=== PATIENT | female | born 2000 | race Caucasian/White ===

== ENCOUNTER 2023-05-31 23:51 | Emergency (ER) | payer MEDICAID, SELFPAY ==
[2023-05-31 23:53] VITALS: BP 134/79; PULSE 66; RESP 16; TEMP 37.1; O2SAT 97; BMI 20.8
--- NOTE | 2023-06-01 00:13 | ED.SKABFB1 ---
HPI - Skin/Abscess/Foreign Bdy General Chief complaint: Skin/Abscess/Foreign Body Stated complaint: rash/hives Time Seen by Provider: 06/01/23 00:08 Source: patient Mode of arrival: walk-in Limitations: no limitations History of Present Illness HPI narrative: patient complains of pruritic rash. States started in her groin about 2 weeks ago. has now spread to her axilla and hands. No dyspnea or throat tightness. No joint swelling or fever. Tried hydrocortisone but it did not help MD complaint: Reports rash Related Data Home Medications Medication Instructions Recorded Confirmed No Known Home Medications 05/31/23 05/31/23 Allergies Allergy/AdvReac Type Severity Reaction Status Date / Time red dye Allergy Unknown Verified 05/31/23 23:57 Review of Systems ROS Status of ROS 10 or more systems reviewed and unremarkable except as noted in history and below PFSH [facility] Social History Smoking status: Current every day smoker Exam Constitutional Vital Signs, click to edit/add: Last Vital Signs Temp 98.8 F 05/31/23 23:53 Pulse 66 05/31/23 23:53 Resp 16 05/31/23 23:53 BP 134/79 05/31/23 23:53 Pulse Ox 97 05/31/23 23:53 O2 Del Method Room Air 05/31/23 23:53 Common normals: no apparent distress, average body habitus, oriented x3, no limitations, healthy appearing, alert and well nourished [facility] Common normals: normocephalic and head/scalp atraumatic Eye Common normals: EOMs intact bilaterally and conjunctivae normal Respiratory Common normals: normal respiratory effort, no retractions, no use of accessory muscles and clear to auscultation bilaterally Cardio Common normals: regular rhythm, S1 normal heart sound and S2 normal heart sound Extremity Common normals: normal to inspection and full ROM Other: faint erythematous rash bilat axilla and few lesion scattered on her hands Neuro Common normals: oriented x3, CN's II-XII intact bilaterally, moves all extremities, no focal motor deficits and no sensory deficits noted Course Vital Signs Vital signs: Vital Signs Temperature 98.8 F 05/31/23 23:53 Pulse Rate 66 05/31/23 23:53 Respiratory Rate 16 05/31/23 23:53 Blood Pressure 134/79 12/18/23 23:53 Pulse Oximetry 97 05/31/23 23:53 Oxygen Delivery Method Room Air 05/31/23 23:53 Temperature 98.8 F 05/31/23 23:53 Pulse Rate 66 05/31/23 23:53 Respiratory Rate 16 05/31/23 23:53 Blood Pressure 134/79 05/31/23 23:53 Pulse Oximetry 97 05/31/23 23:53 Oxygen Delivery Method Room Air 05/31/23 23:53 MDM - Skin/Abscess/Foreign Bdy MDM Narrative Medical decision making narrative: patient presents with a pruritic rash. ? etiology. Plan treatment with course of steroids and she is to follow up with her family doctor Discharge Plan Discharge Chief Complaint: Skin/Abscess/Foreign Body Clinical Impression: Urticaria Prescriptions / Home Meds: No Action No Known Home Medications Instructions: Acute Rash (ED) Stand Alone Forms: Portal Instructions Referrals: Physician,Non-Staff, MD [Primary Care Provider] - 1 week
[2023-06-01] MEDS: PREDNISONE 20 MG TABLET 40 MG PO (00:21)
== END 2023-06-01 00:30 | disposition home or self-care (01) ==
PROVIDERS: Emergency Provider Internal Medicine
DX: L50.9 Urticaria, unspecified (principal); F17.200 Nicotine dependence, unspecified, uncomplicated
CPT/HCPCS: 99283

== ENCOUNTER 2023-12-11 23:31 | Emergency (ER) | payer MEDICAID, SELFPAY ==
--- OUTSIDE RECORDS SUMMARY | 2023-12-11 23:41 | XMS_ITS | CCD ---
Author Organization [facility] Care Team Providers Care Shotblaster Name Role Phone PROVIDER, UNKNOWN Attending Unavailable PROVIDER, UNKNOWN Referring Unavailable Balbina, PCP Primary Care Unavailable Naima Perez Primary Care Provider UnavailMICHAEL Staley Referring Unavailab NAIMA Asif Primary Care Unavailable MICHAEL SMALLS Referring Unavailab NAIMA Asif Primary Care Unavailable NAIMA PEREZ Primary Care Physician Maribel Randall Unavailable Amy Tang Unavailable CAITIE MARSHALL Primary Care Physician CAITIE MARSHALL Primary Care Physician MD Lucia Thorne Attending Provider [phone] Lucia Thorne Admitting Unavailable Lucia Thorne Attending Unavailable NON STAFF Primary Care Unavailable Amy Tang Attending Unavailable Amy Tang Admitting Unavailable Naima Perez Primary Care Unavailable Amy Tang Attending Unavailable Naima Perez Primary Care Unavailable Amy Tang Admitting Unavailable Maribel Randall Admitting Unavailable Maribel Randall Attending Unavailable [facility] ([place], [place]), Services Primary Care Unavaila ble Amy Tang Attending Unavailable Naima Perez Primary Care Unavailable Amy Tang Admitting Unavailable Amy Tang Attending Unavailable Naima Perez Primary Care Unavailable Amy Tang Admitting Unavailable PAY, DR MARCUS Admitting Unavailable PAY, DR MARCUS Attending Unavailable PAY, DR MARCUS Consulting Unavailable JOSE G, DR NAIMA Joseph Primary Care Unavailable MEDHAT PEREZ Consulting Unavailable JOSE G, DR NAIMA Joseph Primary Care Unavailable AMY TANG JR Admitting Unavailable ZIEBPARVEEN, DR SUGAR Zhang Consulting Unavailable AMY TANG JR Attending Unavailable AMY TANG JR Consulting Unavailable JOSE G, DR NAIMA Joseph Consulting Unavailable JOSE G, DR NAIMA Joseph Primary Care Unavailable JOSE G, DR NAIMA Joseph Admitting Unavailable JOSE G, DR NAIMA Joseph Attending Unavailable MACARENA, DR TYLER Admitting Unavailable JOSE G, DR NAIMA Joseph Primary Care Unavailable MACARENA, DR TYLER Attending Unavailable MACARENA, DR TYLER Consulting Unavailable AMBREEN DAN Attending Unavailable Allergies Allergy Classification Reported Allergen(s) Allergy Type Date of Onset Reaction(s) Facility (10 sources) Contrast media; 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: [red dye] Drug allergy 01-23-2017 [facility] Other Medications Current Medications Medication Drug Class(es) Dates Sig (Normalized) Sig (Original) dicyclomine hydrochloride 20 mg oral tablet (2 sources) Anticholinergic Start: 08-01-2021 take 1 tablet by mouth every twelve hours Dicyclomine HCl 20 MG 1 tablet Orally TWICE A DAY for 30 day(s) Jul, Active Drospirenone-Ethiny l Estradiol (1 source) Progestin, Estrogen Start: 07-28-2021 take 1 tablet by mouth once daily Drospirenone-Eth inyl Estradiol Active 1 TAB PO Daily July 28, 2021 1:00am {21 (Ethinyl Estradiol 0.035 MG / norgestimate 0.25 MG Oral Tablet) / 7 (Inert Ingredients 1 MG Oral Tablet) } Pack [Sprintec 28 Day] (2 sources) Progestin, Estrogen Start: 01-24-2020 take 1 tablet by mouth once daily Sprintec oral tablet Ib, Oral, Daily, control/menstrua l regulation Start Date: 01/24/20 Status: Ordered fluconazole 150 mg oral tablet (1 source) Azole Antifungal Start: 04-08-2021 Diflucan 150 MG 1 tablet Orally take 1 tablet now for 1 days Mar, Active ibuprofen 600 mg oral tablet (3 sources) Nonsteroidal Anti-inflammatory Drug Start: 01-24-2020 take 1 tablet by mouth every six hours as needed for pain ibuprofen 600 mg Tab 600 mg = 1 tab(s), Oral, q6hr, PRN as needed for pain Start Date: 01/24/20 Status: Ordered loratadine 10 mg oral tablet (2 sources) Start: 08-10-2018 take 1 tablet by mouth once daily loratadine (CLARITIN) 10 MG tablet Take 1 tablet by mouth daily 30 tablet 0 08/10/2018 Active pramoxine hydrochloride 10 mg/ml rectal foam (1 source) Start: 02-13-2022 End: 02-20-2022 take 15 g rectal route twice daily ProctoFoam 1% Foam apply, Rectal, BID for 7 day(s), 15 gm, Refill(s) 0, [facility]/pharmacy #[id number], 162, cm, 02/13/22 6:24:00 EDT, Height/Length Dosing, 61, kg, 02/13/22 6:24:00 EDT, Weight Dosing Start Date: 02/13/22 Stop Date: 02/20/22 Status: Ordered Sprintec 28 (5 sources) Sprintec 28 Active Sprintec oral tablet (1 source) Start: 01-24-2020 take 1 tablet by mouth once daily Sprintec oral tablet Ib, Oral, Daily, control/menstrua l regulation Start Date: 01/24/20 Status: Ordered Completed/Discontinued Medications Medication Drug Class(es) Dates Sig (Normalized) Sig (Original) Cetirizine (1 source) Histamine-1 Receptor Antagonist Cetirizine HCl Not-Taking hydrocortisone 25 mg/ml topical cream (4 sources) Corticosteroid Start: 06-25-2021 Anusol-HC 2.5 % 1 application Externally Twice a day for 14 days Jun, Not-Taking Hyoscyamine (1 source) Hyoscyamine Sulfate Not-Taking Senna Leaves (1 source) Senna Not-Taking Problems Active Problems Problem Classification Problem Date Documented Da te Episodic/Chronic Anal and rectal conditions (5 sources) Rectal pain; 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: [Other specified diseases of anus and rectum] Episodic E Codes: Natural/environment (1 source) Bitten by cat, initial encounter; 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: [BITTEN BY CAT INITIAL ENCOUNTER] Onset: 06-18-2022 Episodic Genitourinary symptoms and ill-defined conditions (4 sources) Dysuria; 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: [Dysuria] Onset: 03-02-2022 Episodic Hemorrhoids (1 source) Hemorrhoids; 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: [Unspecified hemorrhoids] Onset: 02-13-2022 Episodic Joint disorders and dislocations; trauma-related (3 sources) Tear of lateral meniscus of knee 01-24-2020 Episodic Open wounds of extremities (4 sources) Open bite of right hand, initial encounter; 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: [OPEN BITE RIGHT HAND INITIAL ENC] Onset: 06-17-2022 Episodic Other aftercare (1 source) USP (current) use of hormonal contraceptives; 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: [RESIDENTIAL HORMONAL CONTRACEPTIVES] Onset: 06-18-2022 Episodic Other circulatory disease (2 sources) Other specified symptoms and signs involving the circulatory and respiratory systems; 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: [Oth symptoms and signs involving the circ and resp systems] Onset: 08-10-2018 Episodic Other female genital disorders (2 sources) Other specified noninflammatory disorders of vagina; 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: [Vaginal discharge N89.8] Onset: 04-08-2021 Resolved: 04-08-2021 Episodic Other gastrointestinal disorders (3 sources) Irritable bowel syndrome 01-24-2020 Chronic Other gastrointestinal disorders (5 sources) Irritable bowel syndrome characterized by constipation; 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: [Irritable bowel syndrome with constipation] Chronic Other gastrointestinal disorders (1 source) Diarrhea; 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: [Diarrhea, unspecified] 07-29-2021 Episodic Other lower respiratory disease (1 source) Disorder of respiratory system; 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: [Other specified respiratory disorders] Onset: 10-19-2021 Episodic Other upper respiratory infections (2 sources) Acute upper respiratory infection, unspecified; 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: [Acute upper respiratory infection, unspecified] Onset: 08-10-2018 Episodic Skin and subcutaneous tissue infections (1 source) Cellulitis of right upper limb; 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: [CELLULITIS OF RIGHT UPPER LIMB] Onset: 06-18-2022 Episodic Substance-related disorders (1 source) Nicotine dependence, cigarettes, uncomplicated; 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: [NICOTINE DEPEND CIGARETTES UNCOMP] Onset: 06-18-2022 Chronic Superficial injury; contusion (2 sources) Abrasion of left hand, initial encounter; 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: [Abrasion of right hand, initial encounter] Onset: 06-18-2022 Episodic Unclassified (1 source) Injury of right knee; 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: [Injury of right knee, initial encounter] Unclassified (1 source) K92.1 - Melena; 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: [K92.1 - Melena] Onset: 08-05-2021 Unclassified (1 source) R19.7 - Diarrhea, unspecified; 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: [R19.7 - Diarrhea, unspecified] Onset: 07-29-2021 Unclassified (1 source) Z01.812 - Encounter for preprocedural laboratory examination; 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: [Z01.812 - Encounter for preprocedural laboratory examination] Onset: 07-16-2021 Unclassified (1 source) N89.8 - Other specified noninflammatory disorders of vagina; 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: [N89.8 - Other specified noninflammatory disorders of vagina] Onset: 04-08-2021 Urinary tract infections (1 source) Urinary tract infection, site not specified; 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: [UTI SITE NOT SPECIFIED] Onset: 07-13-2022 Episodic Viral infection (1 source) Viral disease; 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: [Other viral agents as the cause of diseases classified elsewhere] Onset: 10-19-2021 Episodic Past or Other Problems Problem Classification Problem Date Documented Da te Episodic/Chronic Abdominal pain (9 sources) Unspecified abdominal pain; 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: [Abdominal pain] Onset: 06-25-2021 Resolved: 09-17-2021 Episodic Gastrointestinal hemorrhage (10 sources) Rectal hemorrhage; 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: [Hemorrhage of anus and rectum] Onset: 06-25-2021 Resolved: 09-17-2021 Episodic Malaise and fatigue (4 sources) Other fatigue; 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: [OTHER FATIGUE] Onset: 01-15-2022 Episodic Other eye disorders (1 source) Other disorders of sclera; 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: [OTHER DISORDERS OF SCLERA] Onset: 01-18-2022 Episodic Other gastrointestinal disorders (2 sources) Diarrhea, unspecified Onset: 06-25-2021 Resolved: 09-17-2021 Episodic Residual codes; unclassified (2 sources) High risk bisexual behavior; 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: [High risk bisexual behavior Z72.53] Onset: 04-08-2021 Resolved: 04-08-2021 Episodic Results Test Name Value Interpretation Reference Range Facility CULTURE URINEon 07-12-2022 CULTURE URINE Isolate 1 Streptococcus agalactiae 25,000 cfu/ml of ORGANISM 1 Streptococcus agalactiae ANTIBIOTIC M.I.C RX STATUS Benzylpenicillin <=0.06 S F Ampicillin <=0.25 S F Cefotaxime <=0.12 S F Ceftriaxone <=0.12 S F Levofloxacin 0.5 S F Inducible Clindamycin Resistance Neg NEG F Erythromycin >=8 R F Clindamycin >=1 R F Linezolid <=2 S F Vancomycin 0.5 S F Tetracycline >=16 R F Normal [facility] Comment on above: Performed By: #### U RCX #### [facility] [address] [place] [address] Dr. Venancio Soriano ER URINE PROFILEon 3 Bilirubin Ql (U) Negative Normal NEGATIVE [facility] Comment on above: Performed By: #### U MICRO, PREGU, ERUR #### [facility] [address] [address] [address] Venancio Soriano Clarity (U) CLEAR Normal CLEAR [facility] Comment on above: Performed By: #### U MICRO, PREGU, ERUR #### [facility] [address] [place] [address] Dr. Venancio Soriano Color (U) LT. YELLOW Normal YELLOW [facility] Comment on above: Performed By: #### U MICRO, PREGU, ERUR #### [facility] [address] [place] [address] Dr. Venancio FREEMAN A micrscopic examination will be performed if indicated. Normal [facility] Comment on above: Performed By: #### U MICRO, PREGU, ERUR #### [facility] [address] [place] [address] Dr. Venancio Soriano Glucose Ql (U) Negative Normal NEGATIVE [facility] Comment on above: Performed By: #### U MICRO, PREGU, ERUR #### [facility] [address] [address] [address] Venancio Soriano Hemoglobin Ql (U) TRACE-INTACT Abnormal NEGATIVE [facility] Comment on above: Performed By: #### U MICRO, PREGU, ERUR #### [facility] [address] [address] [address] Venancio Soriano Ketones Ql (U) Negative Normal NEGATIVE [facility] Comment on above: Performed By: #### U MICRO, PREGU, ERUR #### [facility] [address] [place] [address] Dr. Venancio Soriano LEUKOCYTES SMALL Abnormal NEGATIVE [facility] Comment on above: Performed By: #### U MICRO, PREGU, ERUR #### [facility] [address] [address] [address] Venancio Soriano Nitrite Ql (U) Negative Normal NEGATIVE [facility] Comment on above: Performed By: #### U MICRO, PREGU, ERUR #### [facility] [address] [address] [address] Venancio Soriano pH (U) 6.0 [pH] Normal 5-9 [facility] Comment on above: Performed By: #### U MICRO, PREGU, ERUR #### [facility] [address] [address] [address] Venancio Soriano SPEC GRAVITY 1.025 Normal 1.005-<=1.02 5 [facility] Comment on above: Performed By: #### U MICRO, PREGU, ERUR #### [facility] [address] [place] [address] Dr. Venancio Soriano UA PROTEIN Negative Normal NEGATIVE/ TRACE [facility] Comment on above: Performed By: #### U MICRO, PREGU, ERUR #### [facility] [address] [address] [address] Venancio Soriano UR MICRO IND INDICATED Normal [facility] Comment on above: Performed By: #### U MICRO, PREGU, ERUR #### [facility] [address] [address] [address] Venancio Soriano Urobilinogen Qn (U) 0.2 {Erick'U}/dL Normal 0.2 - 1. 0 [facility] Comment on above: Performed By: #### U MICRO, PREGU, ERUR #### [facility] [address] [place] [address] Dr. Venancio Soriano URon 07-10-2022 , QUAL Negative Normal NEGATIVE The [facility] Comment on above: Performed By: #### U MICRO, PREGU, ERUR #### [facility] [address] [place] [address] Dr. Venancio Soriano URINE MICROSCOPIC ONLYon BACTERIA TRACE Abnormal NONE SEEN [facility] Comment on above: Performed By: #### U MICRO, PREGU, ERUR #### [facility] [address] [address] [address] Venancio Soriano Bacteria identified Cx Nom (U) INDICATED Normal [facility] Comment on above: Performed By: #### U MICRO, PREGU, ERUR #### [facility] [address] [address] [address] Venancio Soriano CAST NONE SEEN Normal NONE SEEN [facility] Comment on above: Performed By: #### U MICRO, PREGU, ERUR #### [facility] [address] [address] [address] Venancio Soriano Crystals LM Nom (Urine sed) NONE SEEN Normal NONE SEEN [facility] Comment on above: Performed By: #### U MICRO, PREGU, ERUR #### [facility] [address] [place] [address] Dr. Venancio Soriano Epithelial cells LM Ql (Urine sed) RARE Normal NONE SEEN /RARE [facility] Comment on above: Performed By: #### U MICRO, PREGU, ERUR #### [facility] [address] [place] [address] Dr. Venancio Soriano MUCOUS NONE SEEN Normal NONE SEEN [facility] Comment on above: Performed By: #### U MICRO, PREGU, ERUR #### [facility] [address] [place] [address] Dr. Venancio Soriano RBC 0-2 Normal 0-2 [facility] Comment on above: Performed By: #### U MICRO, PREGU, ERUR #### [facility] [address] [place] [address] Dr. Venancio Soriano WBC 5-10 Abnormal NONE SEEN [facility] Comment on above: Performed By: #### U MICRO, PREGU, ERUR #### [facility] [address] [place] [address] Dr. Venancio Soriano Urine Cultureon 03-02-2022 Bacteria identified Cx Nom (U) Reason for Exam Dysuria Urine No Growth 2 Days PERFORMED BY: [address] [place] [id number] PATHOLOGIST [employer] ENG[employer] EDDIE CORTÉS M.D. Normal [facility] Comment on above: Performed By: #### V AGINITIS+ #### [facility] , #### CUU #### [facility] [address] [place] [address] Vaginitis Plus (VG+)on 03-02 Atopobium Vaginae Moderate - 1 Normal . [facility] Comment on above: Order Comment: Reaso n for Exam Vaginal odor Performed By: #### V AGINITIS+ #### [facility] , #### CUU #### [place] [address] [place] BVAB2 Low - 0 Normal . [facility] Comment on above: Order Comment: Reaso n for Exam Vaginal odor Performed By: #### V AGINITIS+ #### [facility] , #### CUU #### [address] Makayla Albicans, YUNIOR Negative Normal Negative [facility] Comment on above: Order Comment: Reaso n for Exam Vaginal odor Result Comment: This test was developed and its performance characteristics determined by [facility]. It has not been cleared or approved by the Food and Drug Administration. Performed By: #### V AGINITIS+ #### [facility] , #### CUU #### [facility] [address] [place] [address] Makayla Glabrata, YUNIOR Negative Normal Negative [facility] Comment on above: Order Comment: Reaso n for Exam Vaginal odor Result Comment: This test was developed and its performance characteristics determined by [facility]. It has not been cleared or approved by the Food and Drug Administration. PERFORMED BY: [place] [address] PATHOLOGIST [employer]WORK ENGINEER EDDIE CORTÉS M.D. Performed By: #### V AGINITIS+ #### [facility] , #### CUU #### [address] [place] [address] [place] Chlamydia Trachomotis, YUNIOR Negative Normal Negative [facility] Comment on above: Order Comment: Reaso n for Exam Vaginal odor Performed By: #### V AGINITIS+ #### [facility] , #### CUU #### [address] Megasphaera Low - 0 Normal . [facility] Comment on above: Order Comment: Reaso n for Exam Vaginal odor Result Comment: Calc ulate total score by adding the 3 individual bacterial vaginosis (BV) marker scores together. Total score is interpreted as follows: Total score 0-1: Indicates the absence of BV. Total score 2: Indeterminate for BV. Additional clinical data should be evaluated to establish a diagnosis. Total score 3-6: Indicates the presence of BV. This test was developed and its performance characteristics determined by [facility]. It has not been cleared or approved by the Food and Drug Administration. Performed By: #### V AGINITIS+ #### [facility] , #### CUU #### [address] Neisseria Gonorrhoeae, YUNIOR Negative Normal Negative [facility] Comment on above: Order Comment: Reaso n for Exam Vaginal odor Result Comment: Perf ormed at: = - [facility] [address] [id number] Urologist Md: Kim Anderson MD, Phone: [phone] Performed By: #### V AGINITIS+ #### [facility] , #### CUU #### [facility] [address] [place] [address] Tric Vag YUNIOR Negative Normal Negative [facility] Comment on above: Order Comment: Reaso n for Exam Vaginal odor Performed By: #### V AGINITIS+ #### [facility] , #### CUU #### [address] Coding Summary.on 02-17-2022 Coding Summary. [id number] Gh0bWw+PGhlYWQ+PE1FV VUhB57biMXtdJ9JG8oNX R5NSPEUWREGPT9HXP6cz CD8SZpuR6TjndAh WwoceWBhEZ98AMc2XVA7 xHthYVxsbG8yvLBqC2u2 XpOoLT51sU29YJawRTDf VjL3IqDrhikvwMPg A2yeTcRseQKtHmg+PHRh YmxlIHdpZHRoPScxMDAl KcIddEfbFM3zKx0oBKQo LWNvbGxhcHNlOiBj o2luPIQbJMhwKC3mjUnu R5CawTU7FPHcy6x8Rh25 dHI+SMWcHYE8zPnqQWuq g162BiPfh7opMXQ0 oPFwDVyfWKB8B09bc9S0 DPOuAOFuNYL6sQE1yU6n cKnudsptE1CkdFDoPmA4 TPY6fLWprF7jnArf bwmwcB6qUao+R01GCY6H MTCCAF9BSlz6J9GuGdto dHI+UK25ABMmLD98rFYr oRQxq2vzfBq6SsHg ZTWeNAB9eWhgVFrgq2Rz LEZsE01uzEAuy7N8ECNw zSvlxODaKzJtkON3bA3n HTmqulgzu1irzaod Sxfof3nfwo80wH33P70c RBmkXELrHWT6WJXbRHGq jRxxkn2grJ9tKs3+IDxj w1gri0nkyHn4KkQr AOLoegXreCesQMS7e2Bo Tp63P7EliOypw1ZnXli7 ku06rBWwg4V7lJG1QZbk LRHinG3mYUaoQzE5 AEBiMlImhR55iEYcIIhh Cw4xzBmxpRssZR1zHUTf uvroICNbeM4tSWOcaZOx xIulKB8qDRHzniqa a417BtZxYOU7YRQbaCUm S7JmtR5uAuNtHOJkCCDk S9SmzUMiKAwpN676LYdk UwT2TPVozoUfD8Fv NJHnjTinSwM2v7J9Rk4L n5MptxbrWOF4BWnuXDH0 SiX8LtRpSuH0N4WeRlj0 VZLjmWntXS1jB2Ws YZYuyxbeevjnaUN4WEEz FROdkE10nUXpETwuOq4s n4H3f862LXGhIEFnyV58 Ld1yjVmeNFFejWDX iW4rjtuxr8prqrmbYbQv VUFyXNn1FQk1TIJvwUdh JjIlKID3VwL3TSB0lURv fK0grLguswftsJ6a Oyc+A18xuD8nHAA3NRE2 wxacFLOpnmUqSS85DQ55 R5KbPvaqfCViyMR+PGRp lxAkpRywDE0bVoWu l5xbi5PyYJawZ1TcPOSc GDpmSdk3QZZuUID9sSR8 eH2cDKCoQExbf2J7sNM9 E2QvrzXttu3zj1tw JBQgGAouP30kaKHly6X2 LAEdbFK5TPCgoBktBjMd kW23Bgu+PMJjkWapp7Hk Mswww6ama0hjtJg0 IjMwJSIgdmFsaWduPSJ0 t0AbQz10Q28aWNznLYOr LNTiVLEqQVGlbLmcbb6x bJ2sTf1+PGNvbCB3 eJP4xT5kBIYoTgG2EHsp O784VhNcyVIwXnxna2jz v5ihnIg7FwPrGUHbefBw tFgdJDR8w8ToQx44 V44lZOfvGEIwDMObAMDy CZRbpGqeig9wwE0mJr2+ SK9ag5yttv83lJ44vBI+ XNZzUZR4qCnwNCcp WTYieG5sPKdlCoO8MZIm UnKrtG44cMSkQEceNx3o zGbdgLxnNU4vPFCsrxsi u605NvNvl8fdXQPr tQViPBivOVX7J61oj7J8 SOGzWHZuJSI7fBH2qT0d bGlnbjogbGVmdDsgdmVy rCsfMKmcXPrsA033 IHRvcDsnPlBhdGllbnQg XhHbDPa0P4RkWhk6HKZv lTmwFX5zpEXeSUkjBe2a gEcqmTlbOU8jTULd rnwxr315DrSqq3jaHZAf hLVtJKibDXJ5Z38ee7O2 AEKuHKNoRXX0yCC2bM0l bGlnbjogbGVmdDsg vwQcjWzjCYyfLTgpR627 IHRvcDsnPkJpcnRoIERh nIE8EU81BP09oDIpm6R5 oPI8Q4AcKCJirsml euexeOF7WOBuDOEzxK46 Qb8aaUpwKm0bJZPoQSK3 GXKoeFYxD3RpuK4nVdRy KTAzWBOfY0HiuGGf VKaqA124VPxbJiP2UHYx fgTdX9JuNFXdpBzzZlP0 c1O5Zp9UZ8R9SF10ID74 lUDig1Z5kQU3J2Cz IMRklqezesqhvNX1YTIb WMHkwH11Nk0rtDkaLz7f XSFbYVT5VACzdVCgN6Py fD3gCsKlRUKuUWHz Z5PwtJYrIImfC444INni FjH4XAJculGeU7JpOQZp xLixJnR5a6J5Rg6CTXt5 ZH29VR78hDShl8T1 qBF6O4CmNEFlgrcohxeq zGG1WPHbVQMapE92Vb7u kMxaKy3jMBTgOXN3WXAb xFSkG9TcxT7vAsVy BZZyCDOlD3VonHIzTJjl A609CXpdXdI7MJAutoQv C8PmRGXbjAleYbP3d0W3 Mc2XRZOdJV43SDR4 rOI4AY47RF80J9UhFefn dGFibGU+PHRhYmxlIHdp ZHRoPScxMDAlJyBzdHls QO1hRw1mDVBxHZWl oNrwqLXyIaJdn4frMDWd UAuxYB8bhQkbW2DzqOZ7 NGFkd1n4Ya43O10hB3Uu dXA+KINvcCB5mKP8 aL8sPbNsDvY2IGlbX062 PlTqmGZoZpsov9aso4ea kRr4JtN8DFXoqpOzxMvo TLA5o0BpXh55P22e IHdpZHRoPSIxNSUiIHZh vVioqx4anA9vHg6+PGNv fIB1iAI3mH3iTbWuRoS3 PSiuO428QfPjrMXl Pqsjx1pid0kznLj8DcOj SSTjdtFluVkkSXZ7o6Fa Yy63F2JeaEpon2LuAhz5 wa27wSYrx1G6cDP8 P2AgNRZgkprbmXQgdBsg AW2lJQOgacohEVAzlM7z PJQuT2e8BuFuAnM6BIkw D7MayvZ1OIKjiLXu QRzqBHY8R58pn5E3BVAh TFXrRZE9oXA8jM3tmNpr bjogbGVmdDsgdmVydGlj UErnYGqwE917GFTi hHzxEUSyrT9oUTDgwJUs rHasUO1kMGCwfnmlIsCV QAxKFKalE3PLTBqMKvaE JO04HZ79wTOna2X6 bHM9G5HgDJKshaxurcpp xMF0HAYpDOYepM21mXHm PHolUf5sp5A8l893PYZp WHShqU71Io8gaTae FZLbqRBDhZ3kbgwua5tt ubexEeCnIDMpWFj9MDf4 IYLwcOofPsWnLJN9EnS1 MYS2lOQrcO6gcTgw fybreM5iIqy+MDIvMTkv MjAwMzwvdGQ+PHRkIHN0 kDoxPWdoSRVyfC2rXZKk V8y1YkCmNbU2QXqi B7KcTEKyosidBz02iM8e MvAmBkK8GLbzR9BcxhE1 GGOvlLZtJDwcBNG9W13f m6Y0KCUnJHMhJLS7 nPY8iM3csPrgpoloxGQw dDsgdmVydGljYWwtYWxp E209EZJzfBhgDgE0PHhy AMCkRX15TA05vIHi k0T4fXJ0E3JzFPFzdywg htnkjMB1TALiGAIplG38 cZJnNMytKb9be2K5e416 PTAbVVSdpG09Qt3y vGmaVRSluWVEyI4ogzar n7aiokzxHjNjXKEbZQn3 JMi3DCFnsXpyMvJiOFT0 LdL6ZPZ6qSCiiL6b kZknffxxcN9xZfu+RmVt WCpdSR75ZK64lPYqy3O3 uPY3G2XoORJwziaxtbwg kBJ2KVXxUOHcmM39 bTGhWVlgOk5zj2M3o393 WLKmBJTvvW85Gz8bxGef NEEtdXASzR9bnijwj8or cjogIzAwMDAwMDt0 ROr2EHBupLeuOkYgRNW7 UiU6ZWI2kUBosQ5egGhs flijtR0wPkv+ZP7jgtij hrI8LH65CW66U5Qa PjwvdGFibGU+PHRhYmxl IHdpZHRoPScxMDAlJyBz tGupGA0zLa2rYOXfYRRg fKndrAApVgUiz7yf QGMgGOlbAB5zwHqgD4On pNS6QXHxw1c5Yr35A50k K3XysSY+ZUYbwLY3bLL6 fO1iXyVvKzM3OUbb W692GvOhdBSkRjuxl6zh d4gpdWt6CjNsVNPbooSo fEjjTTR5g8TfVs41Z74t IHdpZHRoPSIyMCUi CLIkfYktel7myD8dSg9+ MNCrpYB9cGF5dZ8iIcFw ChW7TMtrW213YhXuwSAg KubyC44bO3HwmKD+ MKSdAxk0VDMubTelZW0f bDBsUKarUg9xUIL3DqTm HvNyHQwgD0TcYRXbyerq erzunUC7LEMmSLUe sC04Qm8grAmxQj8tRVRd GNB5BWIefNQlA0BeyJ2a CkRbEWLlCHCuG5MseTVc SRhyK726TOupCuT0 KYUmjuQcU2WoYVTasDxd YhL8y1X0Ts0OpXftzRLl VI3aZgKhINp6M1GqTmf3 PXQuyEpiYU7prMAe DLitZs9fcGdbtFykGL2g JLMkqnbsx933XvLdh0yc PEIjbKTpHBneJEY3I06a n9B1EJRmDJUgDQI1 lDW7mH0htXjmygkdnTYk dDsgdmVydGljYWwtYWxp Q320GOFgqOvbMqFQMlc8 Y5ErGyz4EETrbZpi ER9tsLLjAPiwVc1zqUyq sGiyRK8qNXUtbptlm960 ZxChd9gtAVArdRJcBBke EKS2N37zt8D7FNRc FBFbPWF2rPQ8fN2ycWsw bjogbGVmdDsgdmVydGlj WBqhEBzvZ809VWCwdKzc Gk8MCjq0V9XsEdq2 PTBinSdsOV2fyAPtPIkp Np6pxLkcmOhhZI7fYQXm adfmi178PrPwu3fiTYWm rLJiPVfdCVM1F23z h3G0QUFqXIRkEPM5wZV0 mQ1ilJvbppccrNSrdEua awFtwJouFRwtGAhoL815 [id number] [id number] YXBz (more content not included)... Normal [facility] Auto Diffon 02-13-2022 Basophils/100 WBC (Bld) 0.9 % Normal 0.0-2.0 [facility] Comment on above: Order Comment: Order Added by Discern Expert. Performed By: #### 2 079717, 1728352, 78250756, 5681295, [id number] ####[address] [address] Basophils/Leukocytes Auto (Bld) [Pure # fraction] 0.1 E9/L Normal 0.0-0.2 [facility] Comment on above: Order Comment: Order Added by Discern Expert. Performed By: #### 2 498926, 0729564, 61547086, 8424799, 00570557 ####[address] [address] Eosinophils/100 WBC (Bld) 0.6 % Normal 0.0-8.0 [facility] Comment on above: Order Comment: Order Added by Discern Expert. Performed By: #### 2 690279, 1275833, 50529326, 9028997, 47979969 ####[address] [address] Eosinophils/Leukocyte s Auto (Bld) [Pure # fraction] 0.0 E9/L Normal 0.0-0.5 [facility] Comment on above: Order Comment: Order Added by Discern Expert. Performed By: #### 2 339948, 2951395, 09395251, 4074142, 34459674 ####[address] [place] [address] Lymphocytes/100 WBC (Bld) 46.4 % Normal 14.0-50.0 [facility] Comment on above: Order Comment: Order Added by Discern Expert. Performed By: #### 2 722040, 4987195, 97591643, 4320662, 47832628 ####[facility] [address] [place] [address] Lymphocytes/Leukocyte s Auto (Bld) [Pure # fraction] 3.1 E9/L Normal 1.0-4.0 [facility] Comment on above: Order Comment: Order Added by Madeleine Expert. Performed By: #### 2 980550, 5896229, 79805014, 8457388, 73887034 ####[address] [address] Monocytes/100 WBC (Bld) 8.2 % Normal 4.0-14.0 [facility] Comment on above: Order Comment: Order Added by Madeleine Expert. Performed By: #### 2 671431, 6077280, 81100604, 2180547, 09822187 ####[address] [address] Monocytes/Leukocytes Auto (Bld) [Pure # fraction] 0.6 E9/L Normal 0.2-1.0 [facility] Comment on above: Order Comment: Order Added by Madeleine Expert. Performed By: #### 2 940532, 0757715, 97855136, 1937886, 27083744 ####[address] [address] Neutrophils/100 WBC (Bld) 43.9 % Normal 36.0-75.0 [facility] Comment on above: Order Comment: Order Added by Madeleine Expert. Performed By: #### 2 510061, 3865764, 29667878, 4574501, 28518621 ####[address] [place] [address] Neutrophils/Leukocyte s Auto (Bld) [Pure # fraction] 3.0 E9/L Normal 2.0-7.5 [facility] Comment on above: Order Comment: Order Added by Madeleine Expert. Performed By: #### 2 932125, 8575640, 77442795, 8146033, 47106228 ####[address] [address] BB Draw & Holdon 02-13-2022 BB D&H Sample drawn for Blood Ba Normal [facility] Comment on above: Performed By: #### 2 315522, 2704110, 26812020, 2058796, 80000274 ####[address] [place] [address] CBC w/ Auto Diffon Erythrocyte distribution width (RBC) [Ratio] 13.3 % Normal 10.9-14.2 [facility] Comment on above: Performed By: #### 2 265066, 1782509, 65434206, 5852886, 24577427 ####[address] [address] Hematocrit (Bld) [Volume fraction] 34.1 % Normal 34.0-46.0 [facility] Comment on above: Performed By: #### 2 417730, 2308417, 90320779, 8081558, 80250512 ####[address] [address] Hemoglobin (Bld) [Mass/Vol] 11.7 g/dL Low 12.0-16.0 [facility] Comment on above: Performed By: #### 2 072803, 8480225, 66609390, 0738480, 00326669 ####[address] [address] MCH (RBC) [Entitic mass] 29.9 pg Normal 27.0-34.0 [facility] Comment on above: Performed By: #### 2 463104, 4647038, 61528100, 0718028, 62309841 ####[address] [address] MCHC (RBC) [Mass/Vol] 34.4 g/dL Normal 31.4-36.0 [facility] Comment on above: Performed By: #### 2 468259, 2693817, 12866346, 1905143, 03219047 ####[address] [place] [address] MCV (RBC) [Entitic vol] 86.8 fL Normal 80.0-100.0 [facility] Comment on above: Performed By: #### 2 410299, 2238749, 25703314, 1653978, 26565780 ####[address] [address] Platelet mean volume (Bld) [Entitic vol] 7.9 fL Normal 6.4-10.8 [facility] Comment on above: Performed By: #### 2 577675, 9782719, 94640404, 1079565, 89190172 ####[address] [address] Platelets (Bld) [#/Vol] 329.0 E9/L Normal 150.0-500.0 [facility] Comment on above: Performed By: #### 2 726568, 8173065, 84701837, 7261621, 37214795 ####[address] [address] RBC (Bld) [#/Vol] 3.9 E12/L Low 4.3-5.9 [facility] Comment on above: Performed By: #### 2 271266, 5540763, 78079185, 1321311, 33508665 ####[address] [address] WBC corrected for nucl RBC Auto (Bld) [#/Vol] 6.7 E9/L Normal 4.0-11.0 [facility] Comment on above: Performed By: #### 2 501060, 3548057, 51796336, 8823540, 09397658 ####[address] [address] CHEMISTRYOrdered By: SYSTEM SYSTEM on 02-13-2022 Albumin [Mass/Vol] 4.3 g/dL Normal 3.3 - 5.0 gm/dL [facility] [place] Albumin/Globulin [Mass ratio] 1.3 {ratio} Normal 1.1 - 2.2 [facility] Remisol ALP [Catalytic activity/Vol] 55 [iU]/d Normal 21 - 98 Int._Unit/L [facility] Remisol ALT No additional P-5'-P [Catalytic activity/Vol] 12 [iU]/d Normal 6 - 46 Int._Unit/L [facility] Remisol Anion gap [Moles/Vol] 10 mmol/L Normal 6 - 16 mEq/L [facility] Remisol AST [Catalytic activity/Vol] 15 [iU]/d Normal 5 - 43 Int._Unit/L [facility] Remisol Bilirubin [Mass/Vol] 0.4 mg/dL Normal 0.0 - 1 .1 mg/dL [facility] Remisol Calcium [Mass/Vol] 9.2 mg/dL Normal 8.9 - 11. 1 mg/dL [facility] Remisol Chloride [Moles/Vol] 107 mmol/L Normal 101 - 1 11 mmol/L [facility] Remisol CO2 [Moles/Vol] 23 mmol/L Normal 21 - 31 mmol/L [facility] Remisol Creatinine [Mass/Vol] 0.4 mg/dL Low 0.5 - 1.3 mg/dL [facility] Remisol GFR/1.73 sq M.predicted among blacks MDRD (S/P/Bld) [Vol rate/Area] mL/min/1.73 m2 Normal >=59mL/min/[address] [facility] Chem S GFR/1.73 sq M.predicted among non-blacks MDRD (S/P/Bld) [Vol rate/Area] mL/min/1.73 m2 Normal >=59mL/min/[address] [facility] Chem S Globulin (S) [Mass/Vol] 3.2 g/dL Normal 1.4 - 4.0 gm/dL [facility] Glucose [Mass/Vol] 87 mg/dL Normal 55 - 199 mg/dL [facility] Remisol Potassium [Moles/Vol] 3.8 mmol/L Normal 3.5 - 5.3 mmol/L [facility] Remisol Protein [Mass/Vol] 7.5 g/dL Normal 6.0 - 7.8 gm/dL [facility] Remisol Sodium [Moles/Vol] 136 mmol/L Normal 135 - 145 mmol/L [facility] Remisol Urea nitrogen [Mass/Vol] 14 mg/dL Normal 5 - 21 mg/dL [facility] Remisol Urea nitrogen/Creatinine [Mass ratio] 35 mg/mg High 10 - [address] [facility] Remisol CMPon 02-13-2022 Albumin [Mass/Vol] 4.3 g/dL Normal 3.3-5.0 [facility] Comment on above: Performed By: #### 2 342348, 5741677, 51126569, 4724783, 80004619 ####[facility] [address] [place] [address] Albumin/Globulin (S) [Mass conc ratio] 1.3 Normal 1.1-2.2 [facility] Comment on above: Performed By: #### 2 992606, 9305987, 18239463, 9116515, 25816727 ####[facility] [address] [place] [address] ALP [Catalytic activity/Vol] 55 Int._Unit/L Normal 21-98 [facility] Comment on above: Performed By: #### 2 744667, 9011890, 25137840, 2143958, 17235930 ####[facility] [address] [place] [address] ALT No additional P-5'-P [Catalytic activity/Vol] 12 Int._Unit/L Normal 6-46 [facility] Comment on above: Performed By: #### 2 417962, 5993778, 98711747, 9073859, 36412522 ####[facility] [address] [place] [address] AST [Catalytic activity/Vol] 15 Int._Unit/L Normal 5-43 [facility] Comment on above: Performed By: #### 2 870634, 2074041, 02168661, 4499838, 34646864 ####[facility] [address] [place] [address] Bilirubin [Mass/Vol] 0.4 mg/dL Normal 0.0-1.1 [facility] Comment on above: Performed By: #### 2 710881, 9238760, 86163583, 6849877, 72635210 ####[facility] [address] [place] [address] Creatinine [Mass/Vol] 0.4 mg/dL Low 0.5-1.3 [facility] Comment on above: Performed By: #### 2 241265, 8978199, 31168901, 7686479, 73179074 ####[facility] [address] [place] [address] Globulin (S) [Mass/Vol] 3.2 g/dL Normal 1.4-4.0 [facility] Comment on above: Performed By: #### 2 492357, 2439561, 89192639, 0367078, 18103867 ####[facility] [address] [place] [address] Protein [Mass/Vol] 7.5 g/dL Normal 6.0-7.8 [facility] Comment on above: Performed By: #### 2 986309, 0252091, 85216103, 6987145, 84489998 ####[facility] [address] [place] [address] Urea nitrogen [Mass/Vol] 14 mg/dL Normal 5-21 [facility] Comment on above: Performed By: #### 2 765418, 7584217, 18211369, 9058217, 26646050 ####[facility] [address] [place] [address] Urea nitrogen/Creatinine [Mass ratio] 35 No Units High 10-20 [facility] Comment on above: Performed By: #### 2 732773, 7228386, 70567428, 3942728, 29860690 ####[facility] [address] [place] [address] Anion gap [Moles/Vol] 10 mmol/L Normal 6-16 [facility] Comment on above: Performed By: #### 2 467688, 0003500, 26908935, 5572017, 69052672 ####[facility] [address] [place] [address] Calcium [Mass/Vol] 9.2 mg/dL Normal 8.9-11.1 [facility] Comment on above: Performed By: #### 2 428326, 2059046, 45497688, 9097459, 59802496 ####[facility] [address] [place] [address] Chloride [Moles/Vol] 107 mmol/L Normal 101-111 [facility] Comment on above: Performed By: #### 2 277396, 6824893, 01666461, 0688621, 71507196 ####[facility] [address] [place] [address] CO2 [Moles/Vol] 23 mmol/L Normal 21-31 [facility] Comment on above: Performed By: #### 2 750873, 1341035, 34442966, 6276225, 50234393 ####[facility] [address] [place] [address] Glucose [Mass/Vol] 87 mg/dL Normal 55-199 [facility] Comment on above: Result Comment: If t his glucose result represents a fasting glucose, interpretation should refer to the following reference range: 55-99 mg/dL Performed By: #### 2 754620, 0970211, 09235145, 6351866, 03677648 ####[facility] [address] [place] [address] Potassium [Moles/Vol] 3.8 mmol/L Normal 3.5-5.3 [facility] Comment on above: Performed By: #### 2 800626, 7648620, 11225493, 5081035, 47770671 ####[facility] [address] [place] [address] Sodium [Moles/Vol] 136 mmol/L Normal 135-145 [facility] Comment on above: Performed By: #### 2 427878, 9737890, 03194572, 8069644, 20144165 ####[facility] [address] [place] [address] Consent for Treatmenton Consent for Treatment [id number] 20 [id number] #1.00CD:127 Normal [facility] Discharge Instructionson Discharge Instructions [id number]# 1.00CD:127 Normal [facility] ED Clinical Summaryon 2021 ED Clinical Summary [address] [address] ED Clinical Summary Person Information Name: MARIBEL VELEZ/[place] Age: 21 Years : 2000 Sex: Female Language: Sudanese PCP: CAITIE MARSHALL CNP Marital Status: Single Visit Id: Visit Reason: Rectal bleed; Abdominal pain; RECTAL BLEEDING, ABD PAIN Speciality: Acuity: 3 Enc Type: Emergency Med Service: Emergency Arrival: 02/13/2022 06:16:54 Discharge: 02/13/2022 07:28:32 LOS: 000 01:12 Checkin: 02/13/2022 06:16:54 Checkout: 02/13/2022 07:28:32 Dispo Type: Home (Routine DC) EVENTS: Event Name Event Status Request Date/Time Start Date/Time Complete Date/Time Arrive Complete 02/13/2022 06:16:54 02/13/2022 06:16:54 02/13/2022 06:16:54 Document Home Meds Request 02/13/2022 06:16:54 Triage Complete 02/13/2022 06:16:54 02/13/2022 06:24:34 02/13/2022 06:24:34 Dr Exam Complete 02/13/2022 06:19:17 02/13/2022 06:19:17 02/13/2022 06:19:17 Registration Complete 02/13/2022 06:19:17 02/13/2022 06:24:46 02/13/2022 06:26:19 Bed Assign Complete 02/13/2022 06:24:46 02/13/2022 06:24:46 02/13/2022 06:24:46 RN Exam Complete 02/13/2022 06:24:46 02/13/2022 06:43:50 02/13/2022 06:43:50 Reg Complete Request 02/13/2022 06:26:19 Pending Labs Complete 02/13/2022 06:43:24 02/13/2022 07:19:21 Lab Complete 02/13/2022 06:43:24 02/13/2022 07:19:21 Pending Labs Complete 02/13/2022 06:54:10 02/13/2022 06:54:10 02/13/2022 07:19:23 Lab Complete 02/13/2022 06:54:10 02/13/2022 06:54:10 02/13/2022 07:19:23 Dr Exam Complete 02/13/2022 07:00:54 02/13/2022 07:00:54 02/13/2022 07:00:54 Registration Request 02/13/2022 07:00:54 Pending Labs Complete 02/13/2022 07:08:25 02/13/2022 07:08:25 02/13/2022 07:08:31 Lab Complete 02/13/2022 07:08:25 02/13/2022 07:08:25 02/13/2022 07:08:31 Pending Labs Complete 02/13/2022 07:12:09 02/13/2022 07:12:09 02/13/2022 07:27:55 Blood Collect Start 02/13/2022 07:12:09 02/13/2022 07:12:09 Discharge Complete 02/13/2022 07:21:56 02/13/2022 07:28:36 02/13/2022 07:28:36 Pending Labs Complete 02/13/2022 07:25:17 02/13/2022 07:25:17 02/13/2022 07:25:17 Transfer Complete 02/13/2022 07:28:36 02/13/2022 07:28:36 02/13/2022 07:28:36 ADDRESS: [facility] [address] [facility] [id number] PHYS DOC NOTES: Addendum by Kevin Santoro DO on February 13, 2022 07:22:06 EDT MEDICAL INFORMATION: Prescriptions Given: New Medications [id number], [address] [place], [place] [id number], [phone] pramoxine topical (ProctoFoam 1% Foam) apply By rectum 2 times a day for 7 Days. Refills: 0. Medications to Continue with No Changes Other Medications ethinyl estradiol-norgestima te (Sprintec oral tablet) Ib By Mouth every day. ibuprofen (ibuprofen 600 mg Tab) 1 Tablets By Mouth every 6 hours as needed as needed for pain. PATIENT EDUCATION INFORMATION: Instructions: Rectal Bleeding, Nwbl-av-Hvtc; Hemorrhoids, Xaqj-ol-Qdfd Follow up: With: Address: When: [facility], [address] [address] Business (1) In 3 days 02/16/2022 With: Address: When: CAITIE MARSHALL In 3 days DIAGNOSIS: Acute hemorrhoid Normal [facility] ED Note-Physicianon 02-14-20 ED Note-Physician Basic Information Time Seen: Ana Braxton DO 02/13/2022 06:19 Chief Complaint Blood coming out of my butt. since 0200 while at work. Denies clots. Bilateral flank pain shortly after bleeding started. Has seen PCP for same complaint. History of Present Illness Patient is a 21-year-old female with past medical history of IBS presenting to the ED for evaluation of rectal bleeding. Patient states that started today while she was at work around 2 AM, has been noticing it on the toilet paper when she wipes in addition to the toilet bowl. Patient had seen a GI doctor in the past however he and she never established with another GI doctor. Denies any fevers, chills, dizziness or lightheadedness. Does note some bilateral flank pain that started after the rectal bleeding started. Review of Systems General: Denied fever, chills, weight loss HEENT: Denied Congestion, rhinorrhea, sore throat Cardiac: Denied Chest pain, palpitations, dizziness/lightheade dness Respiratory: Denied Dyspnea, cough Abdominal: Denied abdominal pain, nausea, vomiting, diarrhea, constipation, +rectal bleeding : Denied dysuria, hematuria Extremities: Denied leg swelling, leg pain, calf tenderness Neuro: Denied Focal neurologic deficits, vision changes, difficulty with speech Integumentary: Denied rashes or lesions Physical Exam Vitals & Measurements T: 36.8 ?C(Oral) HR: 75(Peripheral) RR: 20 BP: 119/74 SpO2: 98% HT: 162.0 cm HT: 162 cm WT: 61.0 kg WT: 61 kg BMI: 23.24 General: Well developed, non toxic appearing, no acute distress HEENT: Head atraumatic, Mucosa moist, hearing grossly normal Neck: No JVD, tracheal deviation Cardiac: Regular rate, rhythm, no murmurs, or gallops, 2+ radial pulses Respiratory: Lungs clear to auscultation B/L, normal respiratory effort Abdomen: Soft non tender, no rebound or guarding, no peritoneal signs Rectal: No external hemorrhoids noted, small internal hemorrhoid noted at the 6 o'clock position Extremities: No edema noted in the LE B/L, no tenderness to palpation Neurologic: Alert and oriented, speech clear Skin: No rashes or lesions Psych: Appropriate mood and behavior Medical Decision Making Patient is a 89-year-old female presenting to the ED for evaluation of rectal bleeding. Patient is nontoxic-appearing on arrival, no acute distress. Patient does have a small internal hemorrhoid noted on examination. Basic laboratory evaluation is obtained. Patient signed out to Dr. Santoro pending labs. Assessment/Plan Acute hemorrhoid (K64.9: Unspecified hemorrhoids) Orders: CBC w/ Auto Diff Comprehensive Metabolic Panel Disposition Plan Discharge Prescription List Prescriptions No active prescription medications Follow-up No qualifying data available Problem List/Past Medical History Ongoing No qualifying data Historical No qualifying data Procedure/Surgical History Arthroscopy of knee (01/24/2020). Medications Inpatient No active inpatient medications Home ibuprofen 600 mg Tab, 600 mg= 1 tab(s), Oral, q6hr, PRN Sprintec oral tablet, Ib, Oral, Daily Allergies Red Dye (Hives) Social History Alcohol - Denies Alcohol Use, 01/24/2020 Substance Abuse - Denies Substance Abuse, 01/24/2020 Tobacco - Denies Tobacco Use, 01/24/2020 Family History Acute myocardial infarction: Grandparent. Bipolar: Mother. Depression: Mother. Depression: Mother. Lab Results No qualifying data available. Diagnostic Results No qualifying data available. Patient was signed out to by the prior physician I did review full work-up here in the emergency department. Laboratory studies are unremarkable. The prior physician did document presence of a hemorrhoid therefore patient will be treated with Proctofoam also given referral to GI in the outpatient setting for follow-up return to ER symptoms should change or worsen. Diagnosis: Rectal bleeding Normal [facility] Comment on above: Result Comment: Bernie shannon Signed By: Kevin Santoro DO\.sarah\Date and Time Signed: 02/13/22 07:23 EDT ED Patient Education Noteon 02-13-2022 ED Patient Education Note Gastroenterology Rectal Bleeding Rectal bleeding is when blood comes out of the opening of the butt (anus). People with this kind of bleeding may notice bright red blood in their underwear or in the toilet after they poop (have a bowel movement). They may also have dark red or black poop (stool). Rectal bleeding is often a sign that something is wrong. It needs to be checked by a doctor. Follow these instructions at home: Watch for any changes in your condition. Take these actions to help with bleeding and discomfort: ? Eat a diet that is high in fiber. This will keep your poop soft so it is easier for you to poop without pushing too hard. Ask your doctor to tell you what foods and drinks are high in fiber. ? Drink enough fluid to keep your pee (urine) clear or pale yellow. This also helps keep your poop soft. ? Try taking a warm bath. This may help with pain. ? Keep all follow-up visits as told by your doctor. This is important. Get help right away if: ? You have new bleeding. ? You have more bleeding than before. ? You have black or dark red poop. ? You throw up (vomit) blood or something that looks like coffee grounds. ? You have pain or tenderness in your belly (abdomen). ? You have a fever. ? You feel weak. ? You feel sick to your stomach (nauseous). ? You pass out (faint). ? You have very bad pain in your butt. ? You cannot poop. This information is not intended to replace advice given to you by your health care provider. Make sure you discuss any questions you have with your health care provider. Document Released: 02/10/2012 Document Revised: 05/13/2018 Document Reviewed: 07/26/2016 Right90 Patient Education ? 2020 [facility]. Hemorrhoids Hemorrhoids are swollen veins that may develop: ? In the butt (rectum). These are called internal hemorrhoids. ? Around the opening of the butt (anus). These are called external hemorrhoids. Hemorrhoids can cause pain, itching, or bleeding. Most of the time, they do not cause serious problems. They usually get better with diet changes, lifestyle changes, and other home treatments. What are the causes? This condition may be caused by: ? Having trouble pooping (constipation). ? Pushing hard (straining) to poop. ? Watery poop (diarrhea). ? . ? Being very overweight (obese). ? Sitting for long periods of time. ? Heavy lifting or other activity that causes you to strain. ? Anal sex. ? Riding a bike for a long period of time. What are the signs or symptoms? Symptoms of this condition include: ? Pain. ? Itching or soreness in the butt. ? Bleeding from the butt. ? Leaking poop. ? Swelling in the area. ? One or more lumps around the opening of your butt. How is this diagnosed? A doctor can often diagnose this condition by looking at the affected area. The doctor may also: ? Do an exam that involves feeling the area with a gloved hand (digital rectal exam). ? Examine the area inside your butt using a small tube (anoscope). ? Order blood tests. This may be done if you have lost a lot of blood. ? Have you get a test that involves looking inside the colon using a flexible tube with a camera on the end (sigmoidoscopy or colonoscopy). How is this treated? This condition can usually be treated at home. Your doctor may tell you to change what you eat, make lifestyle changes, or try home treatments. If these do not help, procedures can be done to remove the hemorrhoids or make them smaller. These may involve: ? Placing rubber bands at the base of the hemorrhoids to cut off their blood supply. ? Injecting medicine into the hemorrhoids to shrink them. ? Shining a type of light energy onto the hemorrhoids to cause them to fall off. ? Doing surgery to remove the hemorrhoids or cut off their blood supply. Follow these instructions at home: Eating and drinking ? Eat foods that have a lot of fiber in them. These include whole grains, beans, nuts, fruits, and vegetables. ? Ask your doctor about taking products that have added fiber (fibersupplements). ? Reduce the amount of fat in your diet. You can do this by: ? Eating low-fat dairy products. ? Eating less red meat. ? Avoiding processed foods. ? Drink enough fluid to keep your pee (urine) pale yellow. Managing pain and swelling ? Take a warm-water bath (sitz bath) for 20 minutes to ease pain. Do this 3?4 times a day. You may do this in a bathtub or using a portable sitz bath that fits over the toilet. ? If told, put ice on the painful area. It may be helpful to use ice between your warm baths. ? Put ice in a plastic bag. ? Place a towel between your skin and the bag. ? Leave the ice on for 20 minutes, 2?3 times a day. General instructions ? Take lias-pyw-igwuche and prescription medicines only (more content not included)... Normal [facility] ED Patient Summaryon 022 ED Patient Summary [id number] Patient Discharge Instructions Person Information Name: MARIBEL VELEZ Age: 21 Years Arrival Date: 02/13/2022 06:16:54 Discharge Diagnosis: Acute hemorrhoid Primary Care Physician: CAITIE MARSHALL CNP Provider Information Primary Provider: Ana Braxton DO [facility] [employer] Performer:None The exam and treatment you received in the Emergency Department were for an urgent problem and are not intended as complete care. It is important that you follow up with a doctor, nurse practitioner, or physician?s event marketing assistant for ongoing care. If your symptoms become worse or you do not improve as expected and you are unable to reach your usual health care provider, you should return to the Emergency Department. We are available 24 hours a day. MARIBEL VELEZ has been given the following list of patient education materials, prescriptions and follow-up instructions: Follow-up Instructions: With: Address: When: [facility], [address] [place] [address] Business (1) In 3 days 02/16/2022 With: Address: When: CAITIE MARSHALL In 3 days In the event that this physician does not participate in your insurance network, please consult with your insurance company to find a nearby participating provider. Patient Education Materials: Rectal Bleeding, Ldih-tq-Yfjl; Hemorrhoids, Xacq-ot-Ngvj A MESSAGE TO ALL PATIENTS REGARDING OPIOIDS PRESCRIPTION OPIOIDS: WHAT YOU NEED TO KNOW Prescription opioids can be used to help relieve cqgstegs-pp-lktxes pain and are often prescribed following a surgery or injury, or for certain health conditions. These medications can be an important part of the treatment but also come with serious risks. It is important to work with your healthcare provider to make sure you are getting the safest, most effective care. WHAT ARE THE RISKS AND SIDE EFFECTS OF OPIOID USE? Prescription opioids carry serious risks of addiction and overdose, especially with prolonged use. An opioid overdose, often marked by slowed breathing, can cause sudden . The use of prescription opioids can have a number of side effects as well, even when taken as directed: ? Tolerance?meaning you might need to take more of the medication for the same pain relief ? Physical dependence?meaning you have symptoms of withdrawal when a medication is stopped ? Increased sensitivity to pain ? Constipation ? Nausea, vomiting, and dry mouth ? Sleepiness and dizziness ? Confusion ? Depression ? Low levels of testosterone that can result in lower sex drive, energy, and strength ? Itching and sweating RISKS ARE GREATER WITH: ? History of drug misuse, substance use disorder, or overdose ? Mental health conditions (such as depression or anxiety) ? Sleep apnea ? Older age (65 years and older) ? Avoid alcohol while taking prescription opioids. Also, unless specifically advised by your health care provider, medications to avoid include: ? Benzodiazepines (such as Xanax or Valium) ? Muscle relaxants (such as Soma or Flexeril) ? Hypnotics (such as Ambien or Lunesta) ? Other prescription opioids KNOW YOUR OPTIONS Talk to your health care provider about ways to manage your pain that don?t involve prescription opioids. Some of these options may actually work better and have fewer risks and side effects. Options may include: ? Pain relievers such as acetaminophen, ibuprofen, and naproxen ? Some medication that are also used for depression or seizures ? Physical therapy and exercise ? Cognitive behavioral therapy, a psychological, goal-directed approach, in which patients learn how to modify physical, behavioral, and emotional triggers of pain and stress. IF YOU ARE PRESCRIBED OPIOIDS FOR PAIN: ? Never take opioids in greater amounts or more often than prescribed. ? Follow up with your primary health care provider. o Work together to create a plan on how to manage your pain. o Talk about ways to help manage your pain that don?t involve prescription opioids. o Talk about any and all concerns and side effects. ? Help prevent misuse and abuse o Never sell or share prescription opioids. o Never use another person?s prescription opioids. ? Store prescription opioids in a secure place and out of reach of others (this may include visitors, children, friends, and family). ? Safely dispose of unused prescription opioids: Find your community drug take-back program or your pharmacy mail-back program, or flush them down the toilet, following guidance from the Food and Drug Administration (www.fda.gov/Drugs/R esourcesForYou). ? Visit www.cdc.gov/drugover dose to learn about the risks of opioids abuse and overdose. ? If you believe you may be struggling with addiction, tell your health care professi (more content not included)... Normal [facility] HEMATOLOGYOrdered By: SYSTEM SYSTEM on 02-13-2022 Basophils/100 WBC (Bld) 0.9 % Normal 0.0 - 2.0 % [facility] [facility] Basophils/Leukocytes Auto (Bld) [Pure # fraction] 0.1 E9/L Normal 0.0 - 0.2 E9/L [facility] Eosinophils/100 WBC (Bld) 0.6 % Normal 0.0 - 8.0 % [facility] Eosinophils/Leukocyte s Auto (Bld) [Pure # fraction] 0.0 E9/L Normal 0.0 - 0.5 E9/L [facility] Lymphocytes/100 WBC (Bld) 46.4 % Normal 14.0 - 50.0 % [facility] Lymphocytes/Leukocyte s Auto (Bld) [Pure # fraction] 3.1 E9/L Normal 1.0 - 4.0 E9/L [facility] Monocytes/100 WBC (Bld) 8.2 % Normal 4.0 - 14.0 % [facility] Monocytes/Leukocytes Auto (Bld) [Pure # fraction] 0.6 E9/L Normal 0.2 - 1.0 E9/L [facility] Neutrophils/100 WBC (Bld) 43.9 % Normal 36.0 - 75.0 % [facility] Neutrophils/Leukocyte s Auto (Bld) [Pure # fraction] 3.0 E9/L Normal 2.0 - 7.5 E9/L [facility] HEMATOLOGYOrdered By: Edie Martini on 02-13-2022 Erythrocyte distribution width (RBC) [Ratio] 13.3 % Normal 10.9 - 14.2 % [facility] Hematocrit (Bld) [Volume fraction] 34.1 % Normal 34.0 - 46.0 % [facility] Hemoglobin (Bld) [Mass/Vol] 11.7 g/dL Low 12.0 - 16.0 gm/dL [facility] MCH (RBC) [Entitic mass] 29.9 pg Normal 27.0 - 34.0 pg [facility] MCHC (RBC) [Mass/Vol] 34.4 g/dL Normal 31.4 - 36.0 gm/dL [facility] MCV (RBC) [Entitic vol] 86.8 fL Normal 80.0 - 100.0 fL [facility] Platelet mean volume (Bld) [Entitic vol] 7.9 fL Normal 6.4 - 10.8 fL [facility] Platelets (Bld) [#/Vol] 329.0 E9/L Normal 150.0 - 500.0 E9/L [facility] RBC (Bld) [#/Vol] 3.9 E12/L Low 4.3 - 5.9 E12/L [facility] WBC corrected for nucl RBC Auto (Bld) [#/Vol] 6.7 E9/L Normal 4.0 - 11.0 E9/L [facility] eGFRon 02-13-2022 GFR/1.73 sq M.predicted among blacks MDRD (S/P/Bld) [Vol rate/Area] mL/min/{1.73_m2} Normal >=59 [facility] Comment on above: Order Comment: Order added by Discern Expert. Result Comment: eGFR is race adjusted. AA=. Performed By: #### 2 [id number] ####[facility] [id number] [place] [address] GFR/1.73 sq M.predicted among non-blacks MDRD (S/P/Bld) [Vol rate/Area] mL/min/{1.73_m2} Normal >=59 [facility] Comment on above: Order Comment: Order added by Discern Expert. Result Comment: Veterinary Toxicologist linwood kidney disease could be indicated at eGFR's of less than 60 mL/min/1.73m2. Kidney failure is indicated at less than 15 mL/min/1.73m2. Performed By: #### 2 [id number] ####[facility] [id number] [place] [address] Coding Summary.on 02-06-2022 Coding Summary. CD:[id number] Gh0bWw+PGhlYWQ+PE1FV ETrI04alJTukH3SM4bMF Y9UWFVJTVGQYS7PGU7hi ML3REexC5LumdBg NdteeCRcCU51TOv2KGI4 pXmkTNbagP1drPEqY1a2 EmZgQZ76cX52BYtcEMUx JhD5JiKusguquZVp C3coDgPgoWTcCrs+PHRh YmxlIHdpZHRoPScxMDAl SiDfjGxjXJ3nPy5sYNMk LWNvbGxhcHNlOiBj b0gtWMHxNDwqHS9raYpe U6MesNK9IGSbv9u1Dz47 dHI+PMZwELK0gAfrXUsq g906IcRxm7inJFC0 pYYjRVbdNQL6W69dc9K3 CVYoNPBrAVW8nHL9hU3d lWwchboeX0MhxVHrEkI5 DDN9pEViyG3vkAqj mpowyN7eMwb+W29STX4D BUDAPX3TSdk6D9FpWmzn dHI+XM42RMKpNP37yLRx cOAhz2knrMa0QcNo HYKtXOH3mEmwMGzrz0St BMDbR47khDBzw9T8WFUo qExqbDXiVzXbcMA3kW8h DZoekppbu4irstyt Rixkm7mgyn15kT82D90q ZCepKTUwPCD2YWIzSEQq lNqbtl4biC9zPt9+IDxj p6ruf6gclPr8AzOf MMUtihFcxGdfXEE7m1Km Vf47X0HzxSlgz6UwDof5 sz82qIYuk2D8cCK2LWsk TOLvxH4fGBxfVaH0 VMFbYwAcaI30qUDrEOrh Cd8cjXifuGduOM4yRRGa whngVZXfgO0sOYLuhVVj mEetEA3nSYUxakww b013MaXcCQD4ELXldIOz Z8WqeI2eEnLnDPMpWRMs D0VjvDGsNZagO288ONlj QzG0VIVgpvStX4Ug ZLZncAtkSlR8d8S0Qt2I r8QxkvufYXZ2IIwaZXP1 BsN2XbZwLgY8G5NbMxy1 FNIdyPsfJP9jD2Ck XDTxzupovvoofFP4DBTc YBRebW78vCOzMVciQi7y r0B8l736PBCzOJYbdU23 Ox6bmMpxTFFgnWYA pK4bctemf5ljhgaoMtQo PSFhKPa9KVp4OOUjwNrj TnOeNTJ3IxR6DNN5eELy zO7yuOuaeophkT7e Oyc+K73cyB7nDVD4DTL3 vtklQWLhtdCuST00LR29 P4CyLbhgpLUzmGP+PGRp qjObxTyjPT7dYmUg b2juv5YlOVziZ5TgOIRg SPoiPpl8VWAwDUA8iIB9 eP4gQLHxEHxlr9N4mHK3 O5AwmjUpgt4bf5oz JBCuWOgiY72lvUPiv8R8 VZOmaWP0GNOtuEfuZqBr mN62Kyl+QNAnnQzlj3Ut Grhgm7sdr1hdaPc2 IjMwJSIgdmFsaWduPSJ0 x5IpPd98R66qRWeaLIWt HTJzPSXcLQPosWkbor2y lB1kQa0+PGNvbCB3 lVF8dM4qWVXbCjK7JInx V975IfFxwHWaElfsa1hg z4gicMu8DiXkVWWbaoNu kEwuVMQ6k9TkAw62 W64nILdjFNEpYKVdHKAi AWKzyIygvg3ofZ3uJn7+ VB5cu1dulp20jF44tZN+ ZQQvVJK7tSduDQze WVZevN8fMPjsXoX4GYJc GjBecV57iSNfVVebOn7d aWfccSfeMV5eEEXxltlm z097LrCuv1ioRGQe sENtJDsmGOS0F23zo4C7 HMRvJZGsPRK3tDT4pS8e bGlnbjogbGVmdDsgdmVy jAosAOrkTAesG009 IHRvcDsnPlBhdGllbnQg LhBsTPr6G4GpBvl7YVZg jZduDA0ghVAuTUtaEu1c oRcnhXaiMX5yUFLe xdeye259GhDcj7jzHBIp sYPqWDhsUGT6J67gf8C2 GOOrLHDsWIU8dCX3lF4k bGlnbjogbGVmdDsg slPdaYstZWkhWEiqV402 IHRvcDsnPkJpcnRoIERh mXO4RQ95LY29tSKst4U3 vTM7Z5FxLDHhuxih oicnnEE9YDLmIFKcsG19 Yt6emCqaSd0bBHToFWC1 ORNznJRaQ1EtlA1vDwXo ABQvCFZdN0TqxSCu ZOihS773DVpvUnI3HRLv lzIeC9DcJCXqdBxoOjL3 r2Q4Tu6SZ2Y4CH74XZ09 cEMow2H5hRE6N0Cl DUOhvprcjvpelGF4DRFs JJZloK39Ix2guXszIk0f JTAmDHP8MSIyxPAxW1Vg gH9rDoLfQDZfEWNe C5NtpKJtNWudK873UFbr BcP6BYUhkcPoS4WcBRTg xUvjPcU5j7U1My7MWVn9 QQ41LF08lVKmj9C2 hWU7Y1DuOCSpmwowropv wOQ1QAIqJTRhdT28Hs6f fXtgLd7bYBOvOXB8RRKj xISaA6OgxI8cMcWh JUVnNXUsI4QzoJXcHIgw Q990YYdhPrS9SGXnqrHr L3YnYZLtoOeyNoK6d9V7 Vo5KRCBpVE08KAS5 rBC8TN72IR80V4XyLwbz dGFibGU+PHRhYmxlIHdp ZHRoPScxMDAlJyBzdHls AF0oCw2pHUUxHRXc eYkktKLpQdTbs0heHPWo KWzxQX6bpQnsN2CdnNJ8 EXDsf5i3Rp86G52oW3Mk dXA+LGJmeGH1mAS7 sH8cUqSxVpH3PFyiT839 ViDjtNVrByrqp0ejs2qw yLl5DyU4MXPmhiGpsRge RWO0f0QvYs53T44r IHdpZHRoPSIxNSUiIHZh cGfvjb3ttP1dYg6+PGNv eIK1iKH4bQ6dYgPlKdJ7 IColB618DmJxzFRm Gnwjs9qio4tllYr4OuVd URXgeoTqyUgiWQG2j0Sg Tg77B6HhqWlet4JnDhr0 tm34zKJsk3T5zZX8 J0SySLDssoumrXIdcChw AS8sGCVayvwzNGDylB9a MCUwX4p0EeFuQuB0WAnm A9GxyxF2GVIodWIw SExuLZV7X80lv1U5DJKp IHMgXNU7oRX0bX0kiQgd bjogbGVmdDsgdmVydGlj BSckVGsgZ385AELv vQcjLXIjgV3hDNTmiZSo xScpKF1sXTMhswzcZjLB HGcGXHjpU6HHTSsWEzaF RH17NT33sCEdh5T6 lEH3G3MyUYBcihtdtihj fLN7OOKdIVYmlZ21jFJv PTfmNq9or3I7t930DEFi HYDehU33Df1blNal BVItfRISgF7hehihl8sm tswlQwSnTWNzVEi7XWd1 RHXdkRlfHiPjDUZ0JcE8 SSZ5gKTzjL1edJui pnducG8fIvs+MDIvMTkv MjAwMzwvdGQ+PHRkIHN0 yVwlXXopPKRcqB3zVXUt A3w4JiEuKpY9EQdv Z2KjDTEfginqHv71vS6h CeBiHbW3SUpqC1WtnjB9 IOJyzXCiWQozMXN1N05c t5C6BNHrGPIlJFI3 qBT6tF6rnSlcdexxiESa dDsgdmVydGljYWwtYWxp I536AMJmvUxnWcA6JAqz TGTxFP03UF38jUQu d2F0jVY8Y9WqSKCkbqku looefYX2DUKuTXAczR58 hTNpEAhhKr3la9N7t956 IWGnTAVsdJ17Og2s qYhxEAJqzWIVtW2vailf e6jyytuiIoQnFTFpTHy8 ITc3AJVocWyoHrVrRTQ3 PpN7AVG9eWDcgK3r hBvkrxjnaE7cRnh+RmVt DOhrOG52ZV71pQWwn8A3 iJK0M3OgQIVqykcexqpy eSZ7VMXfYGCfyL76 nGEsJUajFk5il4Y5f518 LXVdZMPcbG10Wj1wsJdv ASDoyUNAbB8vxkrvb1ff cjogIzAwMDAwMDt0 ZMs9PPKbqKhrDmImWTS4 AlL7LSX1hTMdoF6gxJlt xsmrbS0gDma+B5P6tNH2 aWVudDwvdGQ+PC90 ga83O3UhBknaNks0PVJe JKJ8nGO0rB4bGHLrVRtt r5J5eOA6V5NhphKese1a o7exGWMhHUijD84v xBNsd8O4FDOvzIT6HIWk xTnaNkGmbW09Xey+PGNv nJljj4AwZxdzf4diz7et kPu6JyDnKTGodzEz sVryJVG7r8UcXm72E99w IHdpZHRoPSIzMCUiIHZh bQsvkw3mkS9sXm7+PGNv aBD9mLA2qW6xRsGl DgP5AXypE373HaYdwPEp Tckyc1hvd8dewVz6QeQn KPUbziDzqFdrQQD6z6Nw Mj58J0JukMfkb3Sg Vzo8sg63qRYkw0G2jCU8 Q0EwDVQfvobjcIGilWcv CK6dSQVqmnjfZRRkpD0h FMVpS3q5AiGoEtP7 SAscG5YqnoT8KVThjSEn JGNznEQQoS3zlwojc2ef kacoSgBiIQYzUUs8WSz4 LWFsaWduOiBsZWZ0 EzF9IAL4cISnrX9ydWxh gouhyD0kYih+GNp9p5xb eJOmXR9zeVK9WR18ZK90 aVUvs1G8mDY4K4Cl ICEsqlmapukvcDZ9WBQq KWPupH30Gd2xsCqxIj9x NPJgUHH3SERbbQUoB6Eo pC3lPrVcXFFfZAGa L2TgxBMqSWhvI707QUjn CfU6QUAnewUjK8SbEYEl yYlcMmF0l0Q9Hs7NAR47 TM16PK59dJOwz1Z7 nXR6N5IiPNWgflfilrwz qEK7PEQdBRWuyI19Nm3f yVjzGo4eBFKgBMM1YFHt eNQdJ0NetY2dCdVo SBKeWKVnL4EamNIiNJgj P885HFrhCuX9KEFvutQn C2BxIUWbaQuxIcZ3i1R8 Vh4RGu63EX18PT61 eUEza6D2tME5Q3XaIUKe pwygsxtcbXT6TVZiWHMa jH49Lg2zaYbjAm9aEMFn TZO9WCEtsWReS3Jk jJ8mUtSoZJPmUIWoG6Lc iTWqUJelM220TMnhPdK4 FCNtvrDcO7MjTGQojYnf OiW5h3U8Fk2RKJgk mmy7W9YsNinpyCH+PC90 NJZyRK14nCOtqDGmv8gq mHs3XuIpRYKkXWC2xTvc HZqsd4HbZNEzH93p bGFw (more content not included)... Normal [facility] Consent for Treatmenton 01-13 Consent for Treatment [id number] 20 [id number] #[id number]:127 Normal [facility] Physician Orderon 02-03-2022 Physician Order [id number] #1.00CD:127 Normal [facility] XR Shoulder Complete Righton 02-03-2022 XR Shoulder Complete Right Exam Date/Time: 02/03/2022 09:53 EDT Reason for Exam: M25.511, ACUTE PAIN OF RIGHT SHOULDER Report IMPRESSION: QUESTIONABLE MINIMAL AC JOINT SEPARATION OF THE RIGHT SHOULDER. RECOMMEND CLINICAL CORRELATION. CLINICAL HISTORY: M25.511, ACUTE PAIN OF RIGHT SHOULDER COMPARISON: NONE FINDINGS: AP, internal, external rotation, Y and axillary views of the right shoulder demonstrate no evidence of acute fracture. There is questionable minimal AC joint separation. There is a no abnormal soft tissue calcification. FINAL REPORT Dictated: 02/03/2022 10:42 am Des Reis M.D. Signed (Electronic Signature): 02/03/2022 10:42 am Signed by: Des Reis M.D. Transcribed by: CHRIS Technologist: JULITO Hanson [facility] CBC AUTO DIFFon 01-15-2022 BASO # 0.0 103/ul Normal 0.0-0.1 [facility] Comment on above: Performed By: #### C BC #### [facility] [address] [place] [address] Dr. Venancio Soriano Basophils/100 WBC (Bld) 0.6 % Normal 0.2-2.0 [facility] Comment on above: Performed By: #### C BC #### [facility] [address] [address] [address] Venancio Soriano EO # 0.1 103/ul Normal 0.0-0.7 [facility] Comment on above: Performed By: #### C BC #### [facility] [address] [address] [address] Venancio Soriano Eosinophils/100 WBC (Bld) 1.3 % Normal 0.9-7.0 [facility] Comment on above: Performed By: #### C BC #### [facility] [address] [address] [address] Venancio Soriano Erythrocyte distribution width (RBC) [Ratio] 12.8 % Normal 11.0-15.0 [facility] Comment on above: Performed By: #### C BC #### [facility] [address] [place] [address] Dr. Venancio Soriano Hematocrit (Bld) [Volume fraction] 36.5 % Normal 36.0-48.0 [facility] Comment on above: Performed By: #### C BC #### [facility] [address] [place] [address] Dr. Venancio Soriano Hemoglobin (Bld) [Mass/Vol] 12.2 g/dL Normal 12.0-16.0 [facility] Comment on above: Performed By: #### C BC #### [facility] [address] [place] [address] Dr. Venancio Soriano IG # 0.01 10e3/ul Normal 0.00-0.03 [facility] Comment on above: Performed By: #### C BC #### [facility] [address] [place] [address] Dr. Venancio Soriano IG % 0.2 % Normal 0.0-0.5 [facility] Comment on above: Performed By: #### C BC #### [facility] [address] [place] [address] Dr. Venancio Soriano LYMPH # 2.7 103/ul Normal 1.2-3.8 [facility] Comment on above: Performed By: #### C BC #### [facility] [address] [place] [address] Dr. Venancio Soriano Lymphocytes/100 WBC (Bld) 42.9 % Normal 20.5-60.0 [facility] Comment on above: Performed By: #### C BC #### [facility] [address] [place] [address] Dr. Venancio Soriano MANUAL DIFF REQ NO Normal [facility] Comment on above: Performed By: #### C BC #### [facility] [address] [place] [address] Dr. Venancio Soriano MCH (RBC) [Entitic mass] 29.4 pg Normal 26.7-34.0 [facility] Comment on above: Performed By: #### C BC #### [facility] [address] [place] [address] Dr. Venancio Soriano MCHC (RBC) [Mass/Vol] 33.4 g/dL Normal 29.9-35.2 [facility] Comment on above: Performed By: #### C BC #### [facility] [address] [address] [address] Venancio Soriano MCV (RBC) [Entitic vol] 88.0 fL Normal 81.0-99.0 [facility] Comment on above: Performed By: #### C BC #### [facility] [address] [place] [address] Dr. Venancio Soriano MONO # 0.5 103/ul Normal 0.3-0.8 [facility] Comment on above: Performed By: #### C BC #### [facility] [address] [place] [address] Dr. Venancio Soriano Monocytes/100 WBC (Bld) 7.2 % Normal 1.7-12.0 [facility] Comment on above: Performed By: #### C BC #### [facility] [address] [place] [address] Dr. Venancio Soriano NEUT # 3.0 103/ul Normal 1.4-6.5 [facility] Comment on above: Performed By: #### C BC #### [facility] [address] [place] [address] Dr. Venancio Soriano Neutrophils/100 WBC (Bld) 47.8 % Normal 43.0-75.0 [facility] Comment on above: Performed By: #### C BC #### [facility] [address] [place] [address] Dr. Venancio Soriano Platelet mean volume (Bld) [Entitic vol] 9.5 fL Normal 9.5-13.5 [facility] Comment on above: Performed By: #### C BC #### [facility] [address] [place] [address] Dr. Venancio Soriano PLT 323 103/ul Normal 150-450 [facility] Comment on above: Performed By: #### C BC #### [facility] [address] [place] [address] Dr. Venancio Soriano RBC 4.15 106/ul Critically low 4.20-5.40 [facility] Comment on above: Performed By: #### C BC #### [facility] [address] [place] [address] Dr. Venancio Soriano WBC 6.2 103/ul Normal 4.0-11.0 [facility] Comment on above: Performed By: #### C BC #### [facility] [address] [place] [address] Dr. Venancio Soriano PROF 14(COMP METB)on 022 Albumin [Mass/Vol] 4.0 g/dL Normal 3.4-5.0 [facility] Comment on above: Performed By: #### C MP #### [facility] [address] [place] [address] Dr. Venancio Soriano Albumin/Globulin [Mass ratio] 1.2 {ratio} Normal [facility] Comment on above: Performed By: #### C MP #### [facility] [address] [place] [address] Dr. Venancio Soriano ALP [Catalytic activity/Vol] 67 U/L Normal 46-116 [facility] Comment on above: Performed By: #### C MP #### [facility] [address] [place] [address] Dr. Venancio Soriano ALT [Catalytic activity/Vol] 16 U/L Normal 14-59 [facility] Comment on above: Performed By: #### C MP #### [facility] [address] [place] [address] Dr. Venancio Soriano Anion gap [Moles/Vol] 11.8 mmol/L Normal [facility] Comment on above: Performed By: #### C MP #### [facility] [address] [place] [address] Dr. Venacnio oSriano AST [Catalytic activity/Vol] 9 U/L Critically low 15-37 [facility] Comment on above: Performed By: #### C MP #### [facility] [address] [place] [address] Dr. Venancio Soriano Bilirubin [Mass/Vol] 0.3 mg/dL Normal 0.2-1.0 [facility] Comment on above: Performed By: #### C MP #### [facility] [address] [place] [address] Dr. Venancio Soriano Calcium [Mass/Vol] 8.6 mg/dL Normal 8.5-10.1 [facility] Comment on above: Performed By: #### C MP #### [facility] [address] [place] [address] Dr. Venancio Soriano Chloride [Moles/Vol] 106 mmol/L Normal 98-107 [facility] Comment on above: Performed By: #### C MP #### [facility] [address] [place] [address] Dr. Venancio Soriano CO2 [Moles/Vol] 24.9 mmol/L Normal 21.0-32.0 [facility] Comment on above: Performed By: #### C MP #### [facility] [address] [place] [address] Dr. Venancio Soriano Creatinine [Mass/Vol] 0.58 mg/dL Normal 0.55-1.02 [facility] Comment on above: Performed By: #### C MP #### [facility] [address] [place] [address] Dr. Venancio Soriano EGFR-AF ZIMBABWEAN >60 Normal >=60 [facility] Comment on above: Performed By: #### C MP #### [facility] [address] [place] [address] Dr. Venancio Soriano EGFR-NON AF ZIMBABWEAN >60 Normal >=60 [facility] Comment on above: Performed By: #### C MP #### [facility] [address] [place] [address] Dr. Venancio Soriano Globulin (S) [Mass/Vol] 3.3 g/dL Normal [facility] Comment on above: Performed By: #### C MP #### [facility] [address] [place] [address] Dr. Venancio Soriano Glucose [Mass/Vol] 94 mg/dL Normal 74-106 [facility] Comment on above: Performed By: #### C MP #### [facility] [address] [place] [address] Dr. Venancio Soriano Potassium [Moles/Vol] 3.7 mmol/L Normal 3.5-5.1 [facility] Comment on above: Performed By: #### C MP #### [facility] [address] [address] [address] Venancio Soriano Protein [Mass/Vol] 7.3 g/dL Normal 6.4-8.2 [facility] Comment on above: Performed By: #### C MP #### [facility] [address] [address] [address] Venancio Soriano Sodium [Moles/Vol] 139 mmol/L Normal 136-145 [facility] Comment on above: Performed By: #### C MP #### [facility] [address] [address] [address] Venancio Soriano Urea nitrogen [Mass/Vol] 9.0 mg/dL Normal 6.4-19.3 [facility] Comment on above: Performed By: #### C MP #### [facility] [address] [address] [address] Venancio Soriano Urea nitrogen/Creatinine [Mass ratio] 15.5 mg/mg Normal [facility] Comment on above: Performed By: #### C MP #### [facility] [address] [address] [address] Venancio Soriano Discharge Instructionson Discharge Instructions [id number] [id number] Normal [facility] ED Note-Physicianon 10-23-19 ED Note-Physician Basic Information Time Seen: Cherry Hazel PA-C 10/19/2021 17:10 Chief Complaint pt states starting yesterday she has had a cough and headache. History of Present Illness 21-year-old female presents with a cough and headache since yesterday. She states that she had a fever of 102 ?F yesterday. No Tylenol or Motrin today. She states that she just wants tested for COVID. Denies shortness of breath or chest pain Review of Systems Review of systems negative unless otherwise stated in HPI Physical Exam Vitals & Measurements T: 37.2 ?C(Oral) HR: 89(Peripheral) RR: 17 BP: 138/84 SpO2: 100% HT: 165.0 cm HT: 165 cm WT: 64.0 kg WT: 64 kg BMI: 23.51 GENERAL: ALERT, NO ACUTE DISTRESS, talking in full and complete sentences SKIN: WARM, DRY, INTACT; NO CYANOSIS, NO RASH HEAD: NORMOCEPHALIC, ATRAUMATIC ENT: EYE: PERRL, EOMI, NORMAL CONJUNCTIVA, NO DISCHARGE, NO NYSTAGMUS NOSE: NARES PATENT MOUTH: ORAL MUCOSA MOIST THROAT: NO STRIDOR NECK: SUPPLE, TRACHEA MIDLINE, FROM CARDIOVASCULAR: RRR, NO MURMUR, +S1, +S2 RESPIRATORY: LUNGS CTA, NON-LABORED RESPIRATIONS, BS EQUAL, SYMMETRICAL EXPANSION, NO RHONCHI, WHEEZES, RALES, NO STRIDOR, NO RETRACTIONS EXTREMITIES: FROM X 4 NEUROLOGICAL: A&OX3 PSYCHIATRIC: COOPERATIVE, APPROPRIATE MOOD AND AFFECT Medical Decision Making Patient will be swabbed for COVID and influenza and she chooses to be discharged home and view her results on the online portal as treatment is supportive care. She can follow-up family doctor. Afebrile, not tachycardic, tolerating p.o. and ambulating at baseline and hemodynamically stable to be discharged home. Answered all questions. Patient in agreement with treatment. Assessment/Plan 1. Viral respiratory illness (J98.8: Other specified respiratory disorders) Other viral agents as the cause of diseases classified elsewhere (B97.89: Other viral agents as the cause of diseases classified elsewhere) Orders: Influenza A&B Ag Rapid COVID Antigen [place] Disposition Plan Patient Discharge Condition Stable Discharge Disposition Home Discharge Prescription List Prescriptions No active prescription medications Follow-up With When Contact Information Michelle Mata In 3 days 10/22/2021 EDT Additional Instructions: Patient Education Viral Respiratory Infection, Chpr-Pg-Sffk Attestation This visit was performed by both the physician and an APC. I performed all aspects of the MDM as documented. Problem List/Past Medical History Ongoing No qualifying data Historical No qualifying data Procedure/Surgical History Arthroscopy of knee (01/24/2020). Medications Inpatient No active inpatient medications Home ibuprofen 600 mg Tab, 600 mg= 1 tab(s), Oral, q6hr, PRN Sprintec oral tablet, Ib, Oral, Daily Allergies Red Dye (Hives) Social History Alcohol - Denies Alcohol Use, 01/24/2020 Substance Abuse - Denies Substance Abuse, 01/24/2020 Tobacco - Denies Tobacco Use, 01/24/2020 Family History Acute myocardial infarction: Grandparent. Bipolar: Mother. Depression: Mother. Depression: Mother. Lab Results No qualifying data available. Diagnostic Results No qualifying data available. [facility] Comment on above: Result Comment: Elec tronically Signed By: Cherry Hazel PA-C\.br\Date and Time Signed: 10/19/21 17:19 EDT\.br\Electronically Co-Signed By: Miko Kaur MD\.br\Date and Time Co-Signed: 10/22/21 10:35 EDT Coding Summary.on 10-20-2021 Coding Summary. CD:[id number] Gh0bWw+PGhlYWQ+PE1FV NQwJ67gcYNlfB9ZD4vOV W8IWEAPDMBCAC6ZVX9lm QC8JZekL6NcstBp IwndrMRyTW58DGz9KMR5 dFpqHYparH9ynZLzL5p6 FcBdNP14bP08RKzmAREr GmE7PeKbwalqeHKb M1pgAeMolGGmXdj+PHRh YmxlIHdpZHRoPScxMDAl CpXerNbrPA7sEs3nJFIn LWNvbGxhcHNlOiBj d4zaDJBqAQjcQR2esOwh X7PrkDT3GSFuc1e4Lo00 dHI+COGdVAA4mVueOGcz g665RpNgb2upOJJ4 zICnYDbjYTD8E80ly9U1 UZSiYNDlVYV2iLF6vM2j sMboczcoN0NriSJcLgF0 TCT2wSHyfT4axIqr jrddqU9uPch+O46NHO3O ZVKNSK9KRsg8G2OpInto dHI+RU69FIKjYN80mKBk mUBrd4sqcBx9VdUh QVDxADH6kQniHLupx4Gw OLLxC37puMCcc2E1ELEb iSoxiDAcPhTnjWJ9iV7p ZJvsozfay6muniri Auwhg5yxar91kP33R45y USokWLRmVRN9EOSrJTZs oAyrii7rnF9mTr7+IDxj n6xuj8barTw7XhJq QVZeiuJxvGvjDLM2p1Tx Pe33B4WzcJtli4MoQtw5 eq32oUPhq3I9jQK7KHtr BYOyaK4fHNezLxI2 VRAxRrEsfD14hJHuZCve Yr0qcPjuqHshLD6cBLBu qkbgCBJxzX3pIXGbgOKq lZypWX9oIZUulxyl l369AhYpHIR8LIJmgVKa P4RheD1fHmKiAKDeCCXv N2UedPDzROkkU555KJuc YfY8DCHgjvCoP0Zp KABwuNetUpS4a1Q7Ff9U g8UmaauvAAD0TIzmVMT0 SsU9FaFfRzR4G3GuQdb4 CGHkiDmlTE7eD9Sq FESzqdxyccezvKU0LCFb TACixJ10nJFhWMeyYb5v e6T3f082UMOdIUXfaJ86 Tq2ofOvdLCLrwOYD lO0ijeefh6yivvvsMnIv CKPgMYo0KAf2EEJquTtf UdYcOJO9DxN9OJH5hHZk gV5uvLjbnibzlI5e Oyc+S25cpQ0pKZG1EET3 dtlsETQbcdScYN51YZ37 V3InJsigiKQppML+PGRp mmKvnDpnGW5aZtPd m3npq8OwRTzvQ2VgOPSr OWeeOap7VFCtAJG4lCO6 uQ7fWAIgXFuzx2J1zEG7 W6YtjhJjfm8hu3tp TIEbMCrxZ47kwBIvw8C2 QCGcmMX9MJQdqHucXxZd qG74Duu+ZIXynCpey1Xv Cuzpq5nkk0jhxYt6 IjMwJSIgdmFsaWduPSJ0 s5NaOt23S12gFWigVHSh NJCeNAUbVDZndOfttg6p wT0gAl9+PGNvbCB3 aBR6zS0xGCLxGjU4IOmx E100AeDikPLqGfvvc3op l7verPw0PgElPYYuyvRo pZtsDZR7k7XzWx19 Z83gFUiuFUEuYGArJBIo HAIxkGrlyw9ojB0fEo2+ SA6ul2lkyb46vK88tUG+ PPMgDWZ6bVjaPDhc EICnoG2mUWomJwY0OVDi BkEtrQ38hJAoVUkcEv7d uScvmFnjXH4rDHYzcxsh z115NwAbp8tzARVi qVUpOOzfHMA3D03mc5H4 WAQoULJiJIC7gWC4eI8i bGlnbjogbGVmdDsgdmVy jWrdWBjdTHqeR727 IHRvcDsnPlBhdGllbnQg WpIlQMp0H2EjIoc9MNGb qDyiXN0okROmAWpjMv8c bBevbTbwPC6vCPYb yyhud146ZzQpw2fdSEGx sADkQCdfXQG7W45no1A0 BRRcEWZxNEY1iUL4pH9y bGlnbjogbGVmdDsg bdBdyNxnLCtvSWzxF317 IHRvcDsnPkJpcnRoIERh cDF6XE72KB29rPZay1G3 wBS8K6PuVGBszlfx rvevuKU0DHMhATYyeP47 Ll7pdQgrVu0rCZMyQGI5 ACDrfMEyZ6EzhO4lTnBk NIYqFKHmJ7LwrDYw ZSccZ053KLvxDmH6OXIc wyElQ9QyLMXaaAxdZoW8 i0Q9Dx2IG6O1QV83SO45 yTMfc5N6bRZ8K8Fl OOThbttnaizlhKE5PBDu YJBmjS64Ry7dcLwdEs2k FBZoARG2EMInpFQfH6Ka xK8fOvQcFHBrPVXp K1FhjIPyWMnnS714YByy HtI1VPIiwuWnN3NuDDSe kXrtZoN8u8V6Mv3JWIr9 AO46EI67sZYdc5U6 sSQ2H5RpHKEdniihtmmy iHV6XSRuQZRxlE55Ag8a uHzcGa7zTEDaHTV1KDNl wEWwE6CtbD3sIkBo MFAqSCXqL8TvtGAfIUiy O063GIkpBhD2RCAolvNd P8IjAZPcfNecBoJ2t0D5 Qo3ZDWBsSW67IHJ9 qVT1PF05CK31F9HpVttd dGFibGU+PHRhYmxlIHdp ZHRoPScxMDAlJyBzdHls YA9sIb5jIDEwSALo vIslqOWpDsIwp3brXMZe PZjwIQ7siNgfI5UfzAA8 PFGik2z9Ls51G75lM8Cd dXA+PASkwTY0wRO4 oM0pVaLfAfI1QJriV954 TwMpvDUvEgnto2pin1ao rPz9NaY9GOTgmvUnfHkl NKZ5q7LiQd23S01i IHdpZHRoPSIxNSUiIHZh uXiwqn3pyB0mZb2+PGNv yZO5kHE6tM4pHePoCxG3 RScrE526AxLmsGRh Rfglo7nek2rhgNy6BmMg BCVxmeBpnLwbOUY7i0Wg Zv89R7DsxRgsl4UyVly7 di66wKUsu5Q7xCU5 Q6FtGUGhcgwmqKIteRwf LP4sRAUilbkuERUgbS8k OXTxV8t2KoTmCxR3BThx V1XackZ1GYLhzPEl JYdvYPQ1I66ma7T1ELRa TXXgURU3cUL7yT3bsBzt bjogbGVmdDsgdmVydGlj KHmfSWreA603TDFk oGacWRVqtT8dABFqqEHh sBlcGN0vSLMuxhawLhDY GGbTZAkxC2ZAJZiJRvqM LD79RN33zQEay2B7 lCS9O4RuNMRbwdwzbtfu kUB1KDKxHDGtjR69fBKi FNliAz4bo9J4q548GZAv QGShaD39Ae5deHkr ONTxhDDQiN8kunzwl0ca esxmCoLfVEGiBNb8CLf7 UWHcbGzlYhEnOFR5YyY9 CNB9qRBxnV7ltXah jsjehQ0vXle+MDIvMTkv MjAwMzwvdGQ+PHRkIHN0 tOdxYAodOLWzzU9bDSOm V4p9CjCbUcX5HOpf D6AtFKVzprcsAd18wS8i LfHaUfX6LGsxL4ZwurR3 DIZdeQBdWNcwSAM2H03k c6N5DWEsYSKyIBP0 eRY6nH1fxXgyyltbwLHz dDsgdmVydGljYWwtYWxp R987TWTuqJoaXhV1TQvk LNBaHZ72DT09gFLk o6W2tRY1G8AqCLQkgwmu mrvcyAM8PCKmGBYqxJ40 aYAoHSxbNt3fb1V2f648 XVRrQQCmgP80Ir5w fCouQRRxkWQMqX5liayk m4yabfvaOcOiHVOnSXs9 KMg3IEJqzJfwTzNtBNG1 JcC6MAX5xNUgiB3m aUsbujtjrM3aKct+RmVt GDfqMQ73LL77oSBbz6H3 sPI6D2ObVMFwaxwbfvon tMW1MTLpOXLpxH95 hLAcMJukGs0he3S9h148 WXPaCHLzgX94Um7pnBkf OVPxbRFTgP4zoxqnu8io cjogIzAwMDAwMDt0 HDa4ZSYtmXgnDeTzZPB3 YbM4QVO5iQKuaR1ozQbo okdhpK4tUwp+PL6ersfs pnT0VF43ZQ57B7Vh PjwvdGFibGU+PHRhYmxl IHdpZHRoPScxMDAlJyBz kZrpME9xCn9eBUXjYWGa mWgzdEYsLgLez3hc DRQjYQfvEZ9idClzK9Fc gQF4SNNmk1k8Ph11A02i F4IorHC+OXWboTM5oKC9 zE6vNjPmPaL2TWps V343JmApxCKuEkvwj2oy w8oudKk9PpLxUCHpjxLn aMrgMVF0p2JqFb46I39b IHdpZHRoPSIyMCUi APQmnUgyqw3yoK3hIw7+ RWGaeVA3gTK3xN1zBoJg AbJ0GWxmS901DhLsoMTn UkwgE37dS6SwzNH+ LWDvBvi2KXJraQhxCY7p yECnIVkoBq9lHVF7CaMb CdLaVKzuO9CjWVIzvqsy roufjHU5VEAvKXLe hY99Rw1erLjyPb4tQIXx PPO4DHWwdLZfP8IjsG5u UgIqYOOrJVFyU6FjdXOf WMruY396QWjoGgU7 YTGsnsCjJ8JqPIGjjKkf KaT5d8G8Nd4GxKrruEPb KL4tVqWgAIl6T9DvBul4 PPJtwJngZJ4cgBGr ZCrfWz5fhKpgfJtzHY6p CTJsmnshd597HkNjz6qg PFYibUXwYYvdQGY6W61x b5Y0TOBlTJYzDWR8 aBF4dT8qvXvjbjvfbBBm dDsgdmVydGljYWwtYWxp W872MUFdxHllAxARRjn8 R2SuIsw2DTPvqWgw WI1flBRbUJeeVz1wmLmo mXbhJL0xJIBqlgrky939 CkHhe4ufXSKaxJCjEGsi WBX8M03nx2L3KFZr JLDdGEV8zUH2sO4zaOus bjogbGVmdDsgdmVydGlj RXcrBOhjW999QBNecAmd On6XUfw1G8KxNer0 IHUfqYtlAT0ljWUfYFih Vj1xrByqxAbcUN4jLUWz stfcp401VkKrx0kfERFi jUEuZTwgLDX2P65z q5Y8CANhKSHxMAT3eOS6 mJ4buWegnbiusZLkyXki soMkkTsfYRibAMvqA019 IHRvcDsnPlBheWVy OjwvdGQ+ZC22te30Z4Wz DkuuHrs6KTMoRQY9aND1 jL6uBAUuGDofs7Q1hNH3 I6DkmcDhpr1sy3gr YXBz (more content not included)... Normal [facility] Consent for Treatmenton Consent for Treatment [id number] 20 [id number] Normal [facility] ED Clinical Summaryon 2021 ED Clinical Summary [place] [id number] ED Clinical Summary Person Information Name: MARIBEL VELEZ/[facility] Age: 21 Years : 2000 Sex: Female Language: Sudanese PCP: NAIMA PEREZ MD Marital Status: Single Visit Id: Visit Reason: Cough; Headache; COUGH, HEADACHE Speciality: Acuity: 4 Enc Type: Emergency Med Service: Emergency Arrival: 10/19/2021 17:05:16 Discharge: 10/19/2021 17:15:00 LOS: 000 00:10 Checkin: 10/19/2021 17:05:16 Checkout: 10/19/2021 17:15:00 Dispo Type: Home (Routine DC) EVENTS: Event Name Event Status Request Date/Time Start Date/Time Complete Date/Time Arrive Complete 10/19/2021 17:05:16 10/19/2021 17:05:16 10/19/2021 17:05:16 Document Home Meds Request 10/19/2021 17:05:16 Triage Complete 10/19/2021 17:05:16 10/19/2021 17:10:54 10/19/2021 17:10:54 Bed Assign Complete 10/19/2021 17:08:10 10/19/2021 17:08:10 10/19/2021 17:08:10 Dr Exam Complete 10/19/2021 17:08:10 10/19/2021 17:10:52 10/19/2021 17:10:52 RN Exam Complete 10/19/2021 17:08:10 10/19/2021 17:23:30 10/19/2021 17:23:30 Registration Complete 10/19/2021 17:10:52 10/19/2021 17:26:14 10/19/2021 17:26:14 Pending Labs Inlab 10/19/2021 17:16:20 Swab Inlab 10/19/2021 17:16:20 Pending Labs Inlab 10/19/2021 17:16:54 Lab Inlab 10/19/2021 17:16:54 Discharge Complete 10/19/2021 17:18:35 10/19/2021 17:27:21 10/19/2021 17:27:21 Reg Complete Request 10/19/2021 17:26:14 Reg Bed Request Complete 10/19/2021 17:26:14 10/19/2021 17:26:14 10/19/2021 17:26:14 Transfer Complete 10/19/2021 17:27:21 10/19/2021 17:27:21 10/19/2021 17:27:21 ADDRESS: [address] [id number] [facility] DOC NOTES: MEDICAL INFORMATION: Prescriptions Given: Medications to Continue with No Changes Other Medications ethinyl estradiol-norgestima te (Sprintec oral tablet) Ib By Mouth every day. ibuprofen (ibuprofen 600 mg Tab) 1 Tablets By Mouth every 6 hours as needed as needed for pain. PATIENT EDUCATION INFORMATION: Instructions: Viral Respiratory Infection, Humz-Jd-Ucrc Follow up: With: Address: When: Salena ANTONIOMichelle Gilbert In 3 days 10/22/2021 DIAGNOSIS: 1:Viral respiratory illness; Other viral agents as the cause of diseases classified elsewhere Normal [facility] ED Patient Education Noteon 10-19-2021 ED Patient Education Note Infectious Disease Viral Respiratory Infection A viral respiratory infection is an illness that affects parts of the body that are used for breathing. These include the lungs, nose, and throat. It is caused by a germ called a virus. Some examples of this kind of infection are: ? A cold. ? The flu (influenza). ? A respiratory syncytial virus (RSV) infection. A person who gets this illness may have the following symptoms: ? A stuffy or runny nose. ? Yellow or green fluid in the nose. ? A cough. ? Sneezing. ? Tiredness (fatigue). ? Achy muscles. ? A sore throat. ? Sweating or chills. ? A fever. ? A headache. Follow these instructions at home: Managing pain and congestion ? Take wtsi-yam-gvyywgz and prescription medicines only as told by your doctor. ? If you have a sore throat, gargle with salt water. Do this 3?4 times per day or as needed. To make a salt-water mixture, dissolve ??1 tsp of salt in 1 cup of warm water. Make sure that all the salt dissolves. ? Use nose drops made from salt water. This helps with stuffiness (congestion). It also helps soften the skin around your nose. ? Drink enough fluid to keep your pee (urine) pale yellow. General instructions ? Rest as much as possible. ? Do not drink alcohol. ? Do not use any products that have nicotine or tobacco, such as cigarettes and e-cigarettes. If you need help quitting, ask your doctor. ? Keep all follow-up visits as told by your doctor. This is important. How is this prevented? ? Get a flu shot every year. Ask your doctor when you should get your flu shot. ? Do not let other people get your germs. If you are sick: ? Stay home from work or school. ? Wash your hands with soap and water often. Wash your hands after you cough or sneeze. If soap and water are not available, use hand ring sorter. ? Avoid contact with people who are sick during cold and flu season. This is in fall and winter. Get help if: ? Your symptoms last for 10 days or longer. ? Your symptoms get worse over time. ? You have a fever. ? You have very bad pain in your face or forehead. ? Parts of your jaw or neck become very swollen. Get help right away if: ? You feel pain or pressure in your chest. ? You have shortness of breath. ? You faint or feel like you will faint. ? You keep throwing up (vomiting). ? You feel confused. Summary ? A viral respiratory infection is an illness that affects parts of the body that are used for breathing. ? Examples of this illness include a cold, the flu, and respiratory syncytial virus (RSV) infection. ? The infection can cause a runny nose, cough, sneezing, sore throat, and fever. ? Follow what your doctor tells you about taking medicines, drinking lots of fluid, washing your hands, resting at home, and avoiding people who are sick. This information is not intended to replace advice given to you by your health care provider. Make sure you discuss any questions you have with your health care provider. Document Released: 05/13/2009 Document Revised: 06/08/2019 Document Reviewed: 07/11/2018 [employer] Patient Education ? 2020 [employer] Normal [facility] ED Patient Summaryon 022 ED Patient Summary [place] [id number] Patient Discharge Instructions Person Information Name: MARIBEL VELEZ Age: 21 Years Arrival Date: 10/19/2021 17:05:16 Discharge Diagnosis: 1:Viral respiratory illness; Other viral agents as the cause of diseases classified elsewhere Primary Care Physician: JOSE G VENCES, NAIMA Joseph Provider Information Primary Provider: [facility] [employer] Performer:None The exam and treatment you received in the Emergency Department were for an urgent problem and are not intended as complete care. It is important that you follow up with a doctor, nurse practitioner, or physician?s event marketing assistant for ongoing care. If your symptoms become worse or you do not improve as expected and you are unable to reach your usual health care provider, you should return to the Emergency Department. We are available 24 hours a day. MARIBEL VELEZ has been given the following list of patient education materials, prescriptions and follow-up instructions: Follow-up Instructions: With: Address: When: Salena ALVAREZ Michelle Gilbert In 3 days 10/22/2021 In the event that this physician does not participate in your insurance network, please consult with your insurance company to find a nearby participating provider. Patient Education Materials: Viral Respiratory Infection, Dkch-Yb-Zsms A MESSAGE TO ALL PATIENTS REGARDING OPIOIDS PRESCRIPTION OPIOIDS: WHAT YOU NEED TO KNOW Prescription opioids can be used to help relieve mfspydbd-lm-cdiysf pain and are often prescribed following a surgery or injury, or for certain health conditions. These medications can be an important part of the treatment but also come with serious risks. It is important to work with your healthcare provider to make sure you are getting the safest, most effective care. WHAT ARE THE RISKS AND SIDE EFFECTS OF OPIOID USE? Prescription opioids carry serious risks of addiction and overdose, especially with prolonged use. An opioid overdose, often marked by slowed breathing, can cause sudden . The use of prescription opioids can have a number of side effects as well, even when taken as directed: ? Tolerance?meaning you might need to take more of the medication for the same pain relief ? Physical dependence?meaning you have symptoms of withdrawal when a medication is stopped ? Increased sensitivity to pain ? Constipation ? Nausea, vomiting, and dry mouth ? Sleepiness and dizziness ? Confusion ? Depression ? Low levels of testosterone that can result in lower sex drive, energy, and strength ? Itching and sweating RISKS ARE GREATER WITH: ? History of drug misuse, substance use disorder, or overdose ? Mental health conditions (such as depression or anxiety) ? Sleep apnea ? Older age (65 years and older) ? Avoid alcohol while taking prescription opioids. Also, unless specifically advised by your health care provider, medications to avoid include: ? Benzodiazepines (such as Xanax or Valium) ? Muscle relaxants (such as Soma or Flexeril) ? Hypnotics (such as Ambien or Lunesta) ? Other prescription opioids KNOW YOUR OPTIONS Talk to your health care provider about ways to manage your pain that don?t involve prescription opioids. Some of these options may actually work better and have fewer risks and side effects. Options may include: ? Pain relievers such as acetaminophen, ibuprofen, and naproxen ? Some medication that are also used for depression or seizures ? Physical therapy and exercise ? Cognitive behavioral therapy, a psychological, goal-directed approach, in which patients learn how to modify physical, behavioral, and emotional triggers of pain and stress. IF YOU ARE PRESCRIBED OPIOIDS FOR PAIN: ? Never take opioids in greater amounts or more often than prescribed. ? Follow up with your primary health care provider. o Work together to create a plan on how to manage your pain. o Talk about ways to help manage your pain that don?t involve prescription opioids. o Talk about any and all concerns and side effects. ? Help prevent misuse and abuse o Never sell or share prescription opioids. o Never use another person?s prescription opioids. ? Store prescription opioids in a secure place and out of reach of others (this may include visitors, children, friends, and family). ? Safely dispose of unused prescription opioids: Find your community drug take-back program or your pharmacy mail-back program, or flush them down the toilet, following guidance from the Food and Drug Administration (www.fda.gov/Drugs/R esourcesForYou). ? Visit www.cdc.gov/drugover dose to learn about the risks of opioids abuse and overdose. ? If you believe you may be struggling with addiction, tell your health career technology teacher and ask for guidance or call [facility]?S National Helpline at 8-141-515-ZPIM. b Source: [facility] (more content not included)... Normal [facility] Influenza A&B Agon 2 Influenzae A Ag Negative Normal Negative [facility] Comment on above: Performed By: #### 1 [id number] ####[facility] [id number] [place] [address] Influenzae B Ag Negative Normal Negative [facility] Comment on above: Result Comment: Test sensitivity and specificity vary for age group, specimen type, antigen types, and prevalence of disease. Test results must be evaluated in conjunction with other clinical data available to the physician. Individuals who received nasally administered Influenza A vaccine may have positive test results up to 3 days after vaccination. Performed By: #### 1 [id number] ####[facility] [address] [place] [address] MICRO OTHER TESTSOrdered By: Mya Reza on 10-19-2021 Influenzae A Ag Negative (10/19/21 5:05 PM) Normal Negative [facility] Sero Influenzae B Ag Negative (10/19/21 5:05 PM) Normal Negative [facility] Man Sero Rapid COV Int NEG Ctl Pass (10/19/21 5:05 PM) Normal FT Man Sero Rapid COV Int POS Ctl Pass (10/19/21 5:05 PM) Normal FT Man Sero SARS-CoV+SARS-CoV-2 (COVID-19) Ag IA.rapid Ql (Resp) Not Detected (10/19/21 5:05 PM) Normal Not Detected [facility] [place] Sero Rapid COVID Antigen (FT)on 10-19-2021 Rapid COV Int NEG Ctl Pass Normal [facility] Comment on above: Performed By: #### 2 [id number] ####[place] [address] [place] [address] Rapid COV Int POS Ctl Pass Normal [facility] Comment on above: Performed By: #### 2 [id number] ####[address] [address] SARS-CoV+SARS-CoV-2 (COVID-19) Ag IA.rapid Ql (Resp) Not detected Normal Not Detected [facility] Comment on above: Result Comment: The [employer] Video? System for Rapid Detection of SARS-CoV-2 is a chromatographic digital immunoassay intended for the direct and qualitative detection of SARS-CoV-2 nucleocapsid antigens in nasal swabs from individuals who are suspected of COVID-19 by their healthcare provider within the first five days of the onset of symptoms. Negative results should be treated as presumptive, do not rule out SARS-CoV-2 infection and should not be used as the sole basis for treatment or patient management decisions, including infection control decisions. Negative results should be considered in the context of a patient?s recent exposures, history and the presence of clinical signs and symptoms consistent with COVID-19, and confirmed with a molecular assay, if necessary, for patient management. For in vitro diagnostic use. In the [place], only for use under an Emergency Use Authorization. In the [place], this test has not been FDA cleared or approved; this test has been authorized by FDA under an EUA for use by authorized laboratories; use by laboratories certified under the CLIA, 42 U.S.C. ?263a, that meet requirements to perform moderate, high, or waived complexity tests and at the Point of Care (POC), i.e., in patient care settings operating under a CLIA Certificate of Waiver, Certificate of Compliance, or Certificate of Accreditation. This test has been authorized only for the detection of proteins from SARS-CoV-2, not for any other viruses or pathogens; and, in the [place], this test is only authorized for the duration of the declaration that circumstances exist justifying the authorization of emergency use of in vitro diagnostics for detection and/or diagnosis of the virus that causes COVID-19 under Section 564(b)(1) of the Act, 21 U.S.C. ? 360bbb-3(b)(1), unless the authorization is terminated or revoked sooner. Performed By: #### 2 [id number] ####[place] [address] ADMITTED TO INTENSIVE CARE UNIT FOR CONDITION OF INTEREST:FIND:PT: NO Normal [facility] Comment on above: Performed By: #### 2 [id number] ####[place] [address] EMPLOYED IN A HEALTHCARE SETTING:FIND:PT: NO Normal [facility] Comment on above: Performed By: #### 2 [id number] ####[place] [address] FIRST TEST FOR CONDITION OF INTEREST:FIND:PT: Unknown Normal [facility] Comment on above: Performed By: #### 2 [id number] ####[place] [address] HAS SYMPTOMS RELATED TO CONDITION OF INTEREST:FIND:PT: YES Normal [facility] Comment on above: Performed By: #### 2 [id number] ####[place] [address] HOSPITALIZED FOR CONDITION OF INTEREST:FIND:PT: NO Normal [facility] Comment on above: Performed By: #### 2 [id number] ####[facility] [id number] [place] [address] STATUS:FIND:PT: NO Normal [facility] Comment on above: Performed By: #### 2 [id number] ####[facility] [id number] RESIDES IN A CONGREGATE CARE SETTING:FIND:PT: NO Normal [facility] Comment on above: Performed By: #### 2 [id number] ####[facility] [id number] [place] [address] US SINGLE QUAD RT UPPERon US SINGLE QUAD RT UPPER EXAMINATION: US SINGLE QUAD RT UPPER HISTORY: Abdominal pain , right upper quadrant pain for 2 days COMPARISON: No relevant comparison available. TECHNIQUE: Transabdominal evaluation of the right upper quadrant. FINDINGS: LIVER: Normal size and echotexture. Color Doppler demonstrates patent hepatic veins. PORTAL VEIN: Duplex Doppler demonstrates normal hepatopetal flow pattern with flow velocity averaging 31 cm/s. GALLBLADDER: No visible gallstones, wall thickening, or pericholecystic free fluid. Negative sonographic Wolff's sign. BILIARY: No abnormal dilation or stones. Common bile duct diameter is within normal limits. PANCREASE: No visible mass, abnormal atrophy, or duct dilation. KIDNEY: No hydronephrosis. No visible mass or stones. Size: 10.7 x 3.9 x 4.2 cm IMPRESSION: 1. Normal right upper quadrant ultrasound. No suspicious findings to account for patient's symptoms. Electronically authenticated by: SUGAR CAMARENA Date: 2021-09-19 11:51 Normal [facility] 08-05-2021 [place] [address] Nuclear Medicine Report Signed Patient: Maribel Velez MR#: [id number] : 2000 Acct:[id number] Age/Sex: 21 / F ADM Date: 08/05/21 Loc: DC Room: Type: [facility] Attending Dr: Amy Tang DO Ordering Provider: Amy Tang Jr, DO Date of Service: 08/05/21 NM/NM Meckel's: Blood in stool;Abdominal pain Copies to: DO Naima Rodriguez Jr, MD Ward, Jeffrey S DO Nuclear medicine Meckel's scan TECHNIQUE: 12.0 mCi technetium 99m labeled sodium pertechnetate administered intravenously. Sequential planar imaging of the abdomen performed. HISTORY: Upper abdominal pain. Cramping. Blood clots in stool. No abnormal uptake is seen to suggest active Meckel's diverticulum. NM/NM Meckel's IMPRESSION: No findings to suggest active Meckel's diverticulum. Impression dictated by: Amrit Cevallos M.D.08/05/2021 4:16 PM Dictation Location: [place] [address] Transcribed By: [facility] 08/05/211615 Dictated By: Amrit Cevallos DO 08/05/211610 Signed By: 08/05/211615 Normal [facility] HCG,Urineon 07-29-2021 Beta HCG ( test) Ql (U) Negative Normal [facility] Comment on above: Result Comment: PERF ORMED BY: [place] [address] PATHOLOGIST PRE SALES NETWORK ENGINEER EDDIE CORTÉS M.D. Performed By: #### U HCG #### [address] 07-29-2021 L Specimen: [id number] Received: 07/29/21 Status: AMMY Valdes Num: [id number] Spec Type: Surgical Subm Dr: Amy Tang Jr, DO Tissues: A Colon Biopsy (RANDOM BX) Procedures: HE Stain/2, Gross/Micro L4 Patient Age/Sex Location Account Attending Physician Maribel Velez [id number] Amy Tang Jr, DO SPEC NUM: [id number] RECD: 07/29/21 STATUS: AMMY FREEMANSander NUM: [id number] DIMITRI: 07/29/211054 [facility] DR: Amy Tang Jr, DO ENTERED: 07/29/[address] [facility] [address]: ELENA TYPE: Surgical DEPT: S ORDERED: HE Stain/2, Gross/Micro L4 ORDERED: HE Stain/2, Gross/Micro L4 Pathological Diagnosis Colon, random biopsy: - Colonic mucosa showing no specific pathologic changes - Small lymphoid aggregates - Negative for microscopic colitis Clinical Information Abdominal pain Gross Description Received in 10% neutral buffered formalin, labeled with the patient's name, number and random colon rule out microscopic colitis are 2 del rosario tissue fragments, 0.3 cm and 0.5 cm. Entirely submitted in one cassette labeled A1. (SM/JS) Microscopic Description Two glass slides with H E stained material have been examined. The microscopic findings support the above pathologic diagnosis. [id number] Specimen: [id number] Received: 07/29/21 Status: ОЛЕГIlya Lucio Num: [id number] Spec Type: Surgical Subm Dr: Amy Tang Jr, DO Tissues: A Colon Biopsy (RANDOM BX) Procedures: HE Stain/2, Gross/Micro L4 Patient: Maribel Velez [id number] (Continued) Signed (signature on file) Eddie Cortés MD 07/30/21 2381 [facility] COVID-19 Antigenon 2 COVID-19 Antigen Healthcare Worker?: N Lucas Reference Lucas Reference Negative SARS-CoV+SARS-CoV-2 (COVID-19) Ag [Presence] in Respiratory specimen by Rapid immunoassay Negative for SARS Antigen by REINIER COVID19 Blank Space Lucas Disclaimer Negative results, from patients with symptom Lucas Disclaimer onset beyond five days, should be treated as Lucas Disclaimer presumptive and confirmation with a molecular Lucas Disclaimer assay, if necessary, for patient management, Lucas Disclaimer may be performed. Negative results do not rule Lucas Disclaimer out COVID-19 and should not be used as the sole Lucas Disclaimer basis for treatment or patient management Lucas Disclaimer decisions, including infection control decisions. Lucas Disclaimer Negative results should be considered in the Lucas Disclaimer context of a patient's recent exposures, history Lucas Disclaimer and the presence of clinical signs and symptoms Lucas Disclaimer consistent with COVID-19. COVID19 Blank Space Lucas Disclaimer The Lucas SARS Antigen REINIER does not differentiate Lucas Disclaimer between SARS-CoV and SARS-CoV-2. COVID19 Blank Space Lucas Disclaimer This test was developed and its performance Lucas Disclaimer characteristic determined by [employer] and Lucas Disclaimer validated at [facility]. This Lucas Disclaimer test has not been FDA cleared or approved. This Lucas Disclaimer test has been authorized by FDA under an Emergency Use Lucas Disclaimer Authorization (EUA). This test has been validated Lucas Disclaimer in accordance with the FDA's Guidance Document (Policy Lucas Disclaimer for Diagnostics Testing in Laboratories Certified to Lucas Disclaimer Perform High Complexity Testing under CLIA prior to Lucas Disclaimer Emergency Use Authorization for Coronavirus Lucas Disclaimer iseas during the Public Health Emergency) Lucas Disclaimer issued on September 14, 2019. This test is only authorized Lucas Disclaimer for the duration of time the declaration that Lucas Disclaimer circumstances exist justifying the authorization of Lucas Disclaimer the emergency use of in vitro diagnostic tests for Lucas Disclaimer detection of SARS-CoV-2 virus and/or diagnosis of Lucas Disclaimer COVID-19 infection under section 564(b)(1) of the Lucas Disclaimer Act, 21 U.S.C. 360bbb-3(b)(1), unless the Lucas Disclaimer authorization is terminated or revoked sooner. PERFORMED BY: [place] [phone] PATHOLOGIST PRE SALES NETWORK ENGINEER EDDIE CORTÉS M.D. Normal [facility] Comment on above: Performed By: #### C OVID-19 LUCAS, SOFIANEG #### [facility] [address] [place] [address] Lucas Ag Negativeon 07-25-19 22 Lucas Ag Negative Negative Normal Negative [facility] Comment on above: Result Comment: This is a duplicate Lucas SARS Antigen (REINIER) result to be used for statistical tracking purpose only. PERFORMED BY: [place] [phone] PATHOLOGIST PRE SALES NETWORK ENGINEER EDDIE CORTÉS M.D. Performed By: #### C OVID-19 LUCAS, SOFIANEG #### [facility] [address] [place] [address] COVID-19 Antigenon 2 COVID-19 Antigen Healthcare Worker?: N Lucas Reference Lucas Reference Negative SARS-CoV+SARS-CoV-2 (COVID-19) Ag [Presence] in Respiratory specimen by Rapid immunoassay Negative for SARS Antigen by REINIER COVID19 Blank Space Lucas Disclaimer Negative results, from patients with symptom Lucas Disclaimer onset beyond five days, should be treated as Lucas Disclaimer presumptive and confirmation with a molecular Lucas Disclaimer assay, if necessary, for patient management, Lucas Disclaimer may be performed. Negative results do not rule Lucas Disclaimer out COVID-19 and should not be used as the sole Lucas Disclaimer basis for treatment or patient management Lucas Disclaimer decisions, including infection control decisions. Lucas Disclaimer Negative results should be considered in the Lucas Disclaimer context of a patient's recent exposures, history Lucas Disclaimer and the presence of clinical signs and symptoms Lucas Disclaimer consistent with COVID-19. COVID19 Blank Space Lucas Disclaimer The Lucas SARS Antigen REINIER does not differentiate Lucas Disclaimer between SARS-CoV and SARS-CoV-2. COVID19 Blank Space Lucas Disclaimer This test was developed and its performance Lucas Disclaimer characteristic determined by [employer] and Lucas Disclaimer validated at [facility]. This Lucas Disclaimer test has not been FDA cleared or approved. This Lucas Disclaimer test has been authorized by FDA under an Emergency Use Lucas Disclaimer Authorization (EUA). This test has been validated Lucas Disclaimer in accordance with the FDA's Guidance Document (Policy Lucas Disclaimer for Diagnostics Testing in Laboratories Certified to Lucas Disclaimer Perform High Complexity Testing under CLIA prior to Lucas Disclaimer Emergency Use Authorization for Coronavirus Lucas Disclaimer iseas during the Public Health Emergency) Lucas Disclaimer issued on September 14, 2019. This test is only authorized Lucas Disclaimer for the duration of time the declaration that Lucas Disclaimer circumstances exist justifying the authorization of Lucas Disclaimer the emergency use of in vitro diagnostic tests for Lucas Disclaimer detection of SARS-CoV-2 virus and/or diagnosis of Lucas Disclaimer COVID-19 infection under section 564(b)(1) of the Lucas Disclaimer Act, 21 U.S.C. 360bbb-3(b)(1), unless the Lucas Disclaimer authorization is terminated or revoked sooner. PERFORMED BY: [place] [phone] PATHOLOGIST PRE SALES NETWORK ENGINEER EDDIE CORTÉS M.D. [facility] Comment on above: Performed By: #### S OFJOSE ANGELEG, COVID-19 LUCAS #### [address] Lucas Ag Negativeon 07-16-19 22 Lcuas Ag Negative Negative Normal Negative [facility] Comment on above: Result Comment: This is a duplicate Lucas SARS Antigen (REINIER) result to be used for statistical tracking purpose only. PERFORMED BY: [place] [address] PATHOLOGIST PRE SALES NETWORK ENGINEER EDDIE CORTÉS M.D. Performed By: #### C UU #### [address] #### VAGINITIS+ #### [facility] , Patient Educationon 04-08-20 Patient Education Pediatrics BMI for Children and Teens BMI is a number that is calculated from a child or teen's weight and height. BMI serves as a fairly reliable indicator of how much of a child or teen's weight is composed of fat. BMI does not measure body fat directly. Rather, it is considered an alternative to measuring body fat directly, which is difficult and can be expensive. How is BMI used with children and teens? BMI is used as a screening tool to identify possible weight problems. In children and teens, BMI is used to check for obesity, being overweight, being a healthy weight, or being underweight. How is BMI calculated and interpreted for children and teens? BMI measures your child's weight in relation to height. Both height and weight are measured, and the BMI is calculated from those numbers. Next, the BMI is plotted on a chart that compares your child's BMI to the BMI of other children (growth chart). To calculate BMI with metric measurements: 1. Measure weight in kg (kilograms). 2. Measure height in meters. Then multiply that number by itself to get a measurement called meters squared. ? For example, for a child who is 1.5 m (meters) tall, the meters squared measurement would be equal to 1.5 m x 1.5 m, which is equal to 2.25 meters squared. 3. Divide the number of kg by the meters squared number. To calculate BMI with Sudanese measurements: 1. Measure weight in lb. 2. Multiply the number of lb by 703. 3. Measure height in inches. Then multiply that number by itself to get a measurement called inches squared. ? For example, for a child who is 60 inches tall, the inches squared measurement would be equal to 60 inches x 60 inches, which is equal to 3,600 inches squared. 4. Divide the total from step 2 (number of lb x 703) by the total from step 3 (inches squared). Charts and calculators are available to figure this out quickly and easily. Is BMI interpreted the same way for children and teens as it is for adults? BMI is calculated the same way for children, teens, and adults. However, the criteria that are used to interpret the meaning of BMI differ with age. This is because body fat changes in children and teens as they grow. Also, girls and boys differ in their body fat as they mature. As a result, BMI for children and teens, also called BMI-for-age, is gender specific and age specific. BMI-for-age is plotted on gender-specific growth charts. These charts are used for people from 2?20 years of age. Health child daycare worker use the charts to identify underweight and overweight children based on the following guidelines: ? Underweight ? BMI-for-age that is below the 5th percentile. ? Healthy weight ? BMI-for-age that is at the 5th percentile or higher, but less than the 85th percentile. ? Overweight ? BMI-for-age that is at the 85th percentile or higher. ? Obese ? BMI-for-age in the overweight range that is at the 95th percentile or higher. What does it mean if my child is at the 60th percentile? Being at the 60th percentile means that your child has a higher BMI than 60% of children who are the same gender and age. Why is BMI-for-age a useful tool? BMI-for-age is used to identify a possible weight problem that may be related to a medical problem or may increase the risk for medical problems. BMI can also be used to promote changes to reach a healthy weight. This information is not intended to replace advice given to you by your health care provider. Make sure you discuss any questions you have with your health care provider. Document Released: 08/20/2004 Document Revised: 05/13/2018 Document Reviewed: 11/11/2016 Right[employer] Patient Education ? 2019 [facility]. [facility] Urinalysis - AUTOMATEDon Appearance (U) cloudy [employer] Other Bilirubin Ql (U) Negative [employer] Other Color (U) yellow [employer] Other Glucose Ql (U) Negative [employer] Other Hemoglobin Ql (U) Negative [employer] oaBocandy Other Ketones Ql (U) Negative [employer] Other Leukocyte esterase Test strip Ql (U) small [employer] Other Nitrite Ql (U) Negative [employer] Other pH (U) 8.5 [pH] [employer] Other Protein Ql (U) Negative [employer] Other Specific gravity (U) [Rel density] 1.025 [employer] Other Urobilinogen (U) [Mass/Vol] 1.0 mg/dL [employer] Other Urinalysis - AUTOMATED eMinor [facility] TrackerSphere Other Urine Cultureon 04-08-2021 Bacteria identified Cx Nom (U) Reason for Exam Vaginal discharge Urine 75,000 colonies/ml mixed bacterial skin contaminants 2 Days PERFORMED BY: [place] [address] PATHOLOGIST PRE SALES NETWORK ENGINEER EDDIE CORTÉS M.D. [facility] Comment on above: Performed By: #### C UU #### [facility] [address] [place] [address] #### VAGINITIS+ #### [facility] , Vaginitis Plus (VG+)on 04-08 Atopobium Vaginae Low - [address] [facility] Comment on above: Order Comment: Reaso n for Exam High risk bisexual behavior Performed By: #### C UU #### [facility] [address] [place] [address] #### VAGINITIS+ #### [facility] , BVAB2 Low - 0 Normal . [facility] Comment on above: Order Comment: Reaso n for Exam High risk bisexual behavior Performed By: #### C UU #### [facility] [address] [place] [address] [place] #### VAGINITIS+ #### [facility] , Makayla Albicans, YUNIOR Positive Critically abnormal Negative [facility] Comment on above: Order Comment: Reaso n for Exam High risk bisexual behavior Result Comment: This test was developed and its performance characteristics determined by [facility]. It has not been cleared or approved by the Food and Drug Administration. Performed By: #### C UU #### [facility] [address] [place] [address] [place] #### VAGINITIS+ #### [facility] , Makayla Glabrata, YUNIOR Negative Normal Negative [facility] Comment on above: Order Comment: Reaso n for Exam High risk bisexual behavior Result Comment: This test was developed and its performance characteristics determined by [facility]. It has not been cleared or approved by the Food and Drug Administration. PERFORMED BY: [place] [address] PATHOLOGIST PRE SALES NETWORK ENGINEER EDDIE CORTÉS M.D. Performed By: #### C UU #### [address] #### VAGINITIS+ #### [facility] , Chlamydia Trachomotis, YUNIOR Negative Normal Negative [facility] Comment on above: Order Comment: Reaso n for Exam High risk bisexual behavior Performed By: #### C UU #### [place] [address] [place] #### VAGINITIS+ #### [facility] , Megasphaera Low - 0 Normal . [facility] Comment on above: Order Comment: Reaso n for Exam High risk bisexual behavior Result Comment: Calc ulate total score by adding the 3 individual bacterial vaginosis (BV) marker scores together. Total score is interpreted as follows: Total score 0-1: Indicates the absence of BV. Total score 2: Indeterminate for BV. Additional clinical data should be evaluated to establish a diagnosis. Total score 3-6: Indicates the presence of BV. This test was developed and its performance characteristics determined by [facility]. It has not been cleared or approved by the Food and Drug Administration. Performed By: #### C UU #### [facility] [address] [place] [address] [place] #### VAGINITIS+ #### [facility] , Neisseria Gonorrhoeae, YUNIOR Negative Normal Negative [facility] Comment on above: Order Comment: Reaso n for Exam High risk bisexual behavior Result Comment: Perf ormed at: =G - [facility] [address] [id number] Urologist Md: Kim Anderson MD, Phone: [phone] Performed By: #### C UU #### [facility] [address] [place] [address] [place] #### VAGINITIS+ #### [facility] , Tric Vag YUNIOR Negative Normal Negative [facility] Comment on above: Order Comment: Reaso n for Exam High risk bisexual behavior Performed By: #### C UU #### [facility] [address] [place] [address] [place] #### VAGINITIS+ #### [facility] , XR FEMUR RIGHT (MIN 2 VIEWS) on 11-15-2019 XR FEMUR RIGHT (MIN 2 VIEWS) RIGHT FEMUR X-RAYS, 11/15/2019. HISTORY: Right hip and leg pain. COMPARISON: None. FINDINGS: AP and lateral views of the right femur were obtained. Bone mineralization is normal. Alignment is normal. There is no fracture. No dislocation. No degenerative changes. IMPRESSION: Normal right femur x-rays. Interpreted by: Josué Erickson MD Signed by: Josué Erickson MD 11/15/19 Final result Normal [facility] Normal right femur x-rays. [place], [place] RIGHT FEMUR X-RAYS, 11/15/2019. HISTORY: Right hip and leg pain. COMPARISON: None. FINDINGS: AP and lateral views of the right femur were obtained. Bone mineralization is normal. Alignment is normal. There is no fracture. No dislocation. No degenerative changes. [place], [place] Sam, [facility] Incoming Radiant Results From [facility] - 11/15/2019 6:01 PM EDT RIGHT FEMUR X-RAYS, 11/15/2019. HISTORY: Right hip and leg pain. COMPARISON: None. FINDINGS: AP and lateral views of the right femur were obtained. Bone mineralization is normal. Alignment is normal. There is no fracture. No dislocation. No degenerative changes. IMPRESSION: Normal right femur x-rays. [place], [place] ED Provider Noteon 9 Protein mass conc B [facility] eMERGENCY dEPARTMENT eNCOUnter Pt Name: Maribel Velez Birthdate 2000 Date of evaluation: 08/10/2018 Provider: Marek Watts APRN - RENETTA I have evaluated this patient on my own, per my scope of practice with attending physician available for consultation CHIEF COMPLAINT Chief Complaint Patient presents with ? URI HISTORY OF PRESENT ILLNESS (Location/Symptom, Timing/Onset,Context /Setting, Quality, Duration, Modifying Factors, Severity) Note limiting factors. ADNA Velez is a 18 y.o. female who presents to the emergency department Complaining of URI symptoms. Patient is here with her mother. She states symptoms occurring for the past 3 days. Include runny nose, sinus pressure, postnasal drip, cough. There has not been any prior treatment for this. Denies any fevers, chills, neck stiffness, abdominal pain, nausea, vomiting, rashes or lesions. No known exposure to illness. Nursing Notes were reviewed. REVIEW OFSYSTEMS (2+ for level 4; 10+ for level 5) Review of Systems Constitutional: Negative for chills and fever. HENT: Positive for congestion, postnasal drip, rhinorrhea and sinus pressure. Negative for sore throat and voice change. Eyes: Positive for itching. Negative for discharge and redness. Respiratory: Positive for cough. Gastrointestinal: Negative for nausea and vomiting. Skin: Negative for rash. Allergic/Immunologic : Negative for immunocompromised state. Neurological: Negative for headaches. Hematological: Negative for adenopathy. PAST MEDICAL HISTORY History reviewed. No pertinent past medical history. SURGICAL HISTORY History reviewed. No pertinent surgical history. CURRENT MEDICATIONS Previous Medications No medications on file ALLERGIES Patient has no known allergies. FAMILY HISTORY History reviewed. No pertinent family history. SOCIAL HISTORY Social History Social History ? Marital status: N/A Spouse name: N/A ? Number of children: N/A ? Years of education: N/A Social History Main Topics ? Smoking status: Never Smoker ? Smokeless tobacco: Never Used ? Alcohol use No ? Drug use: Unknown ? Sexual activity: Not Asked Other Topics Concern ? None Social History Narrative ? None SCREENINGS PHYSICAL EXAM (up to 7 for level 4, 8 or more for level 5) ED Triage Vitals [08/10/18 1021] BP Temp Temp src Heart Rate Resp SpO2 Height Weight - Scale 108/82 97.3 ?F (36.3 ?C) -- 73 18 100 % 5' 4 (1.626 m) 119 lb (54 kg) Physical Exam Constitutional: She is oriented to person, place, and time. She appears well-developed and well-nourished. Non-toxic appearance. No distress. HENT: Head: Normocephalic and atraumatic. Right Ear: Tympanic membrane normal. Left Ear: Tympanic membrane normal. Nose: Mucosal edema and rhinorrhea present. Mouth/Throat: Uvula is midline and oropharynx is clear and moist. No oropharyngeal exudate. Eyes: Conjunctivae are normal. Right eye exhibits no discharge. Left eye exhibits no discharge. Neck: Normal range of motion. Neck supple. Cardiovascular: Normal rate, regular rhythm, normal heart sounds and intact distal pulses. Pulmonary/Chest: Effort normal and breath sounds normal. No respiratory distress. Musculoskeletal: Normal range of motion. She exhibits no deformity. Lymphadenopathy: She has no cervical adenopathy. Neurological: She is alert and oriented to person, place, and time. GCS eye subscore is 4. GCS verbal subscore is 5. GCS motor subscore is 6. Skin: Skin is warm and dry. She is not diaphoretic. Psychiatric: She has a normal mood and affect. Her behavior is normal. Judgment and thought content normal. Nursing note and vitals reviewed. DIAGNOSTIC RESULTS EKG (Per Emergency Physician): RADIOLOGY (Per Emergency Physician): Interpretation per the Radiologist below, if available at the time ofthis note: No results found. ED BEDSIDE ULTRASOUND: Performed by ED Physician - none LABS: Labs Reviewed - No data to display All other labs were within normal range or not returned as of this dictation. EMERGENCY DEPARTMENT COURSE and DIFFERENTIAL DIAGNOSIS/MDM: Vitals: Vitals: 08/10/18 1021 BP: 108/82 Pulse: 73 Resp: 18 Temp: 97.3 ?F (36.3 ?C) SpO2: 100% Weight: 54 kg (119 lb) Height: 5' 4 (1.626 m) Medications benzonatate (TESSALON) capsule 200 mg (not administered) MDM. In brief, patient is a 18-year-old female with URI symptoms for 3 days., Exam is unremarkable. This is likely viral in etiology. I doubt influenza, pneumonia, sepsis or meningitis. We will continue the Claritin, Tessalon, increase fluids, rest. Take [id number]-[id number] Tylenol or ibuprofen as if her pain. She is stable for discharge. REVAL: CRITICAL CARE TIME Total Critical Care time was 0 minutes, excluding separately reportable procedures. There was a high probability of clinically significant/life threatening deteriorationin the patient's condition which required my urgent intervention. CONSULTS: None PROCEDURES: Unless otherwise noted below, none Procedures FINAL IMPRESSION 1. Viral URI with cough DISPOSITION/PLAN DISPOSITION Decision To Discharge 08/10/2018 10:34:25 AM PATIENT REFERRED TO: [facility] [address] [facility] [id number] Call As needed DISCHARGE MEDICATIONS: New Prescriptions BENZONATATE (TESSALON PERLES) 100 MG CAPSULE Take 1 capsule by mouth 3 times daily as needed for Cough LORATADINE (CLARITIN) 10 MG TABLET Take 1 tablet by mouth daily (Please note: Portions of this note were completed with a voice recognition program. Efforts were made to edit the dictations but occasionally words and phrases are mis-transcribed.) Form [id number] KARMEN Urrutia CNP (electronically signed) Emergency Medicine Provider KARMEN Urrutia CNP 08/10/18 1037 [facility] Vital Signs Date Time Vital Sign Value Performing Clinician Facility 02-13-2022 07:25-0400 Diastolic blood pressure 98 mm[Hg] Kevin Santoro [facility] 02-13-2022 07:25-0400 Systolic blood pressure 153 mm[Hg] Kevin AlvaradoDigitick [facility] 02-13-2022 06:20-0400 Body temperature 98.24 [degF] Kevin Santoro [facility] [facility] 02-13-2022 06:20-0400 Diastolic blood pressure 74 mm[Hg] Kevin [facility] 02-13-2022 06:20-0400 Heart rate 75 /min [employer] ([facility]) [facility] 02-13-2022 06:20-0400 Respiratory rate 20 /min Kevin Kluster [facility] 02-13-2022 06:20-0400 SaO2% (BldA) [Mass fraction] 98 % [employer] ([employer] 02-13-2022 06:20-0400 Systolic blood pressure 119 mm[Hg] Kevin Santoro [facility] 10-19-2021 17:09-0400 Body temperature 98.96 [degF] Miko Kaur [facility] 10-19-2021 17:09-0400 Diastolic blood pressure 84 mm[Hg] Miko Kaur [facility] 10-19-2021 17:09-0400 Heart rate 89 /min Miko Kaur [facility] 10-19-2021 17:09-0400 Respiratory rate 17 /min Miko Kaur [facility] 10-19-2021 17:09-0400 SaO2% (BldA) [Mass fraction] 100 % Miko Kaur [facility] 10-19-2021 17:09-0400 Systolic blood pressure 138 mm[Hg] Miko Kaur [facility] 09-17-2021 15:00-0400 Body weight 61.69 kg Amy Tang Other [facility] Other 06-25-2021 15:15-0500 Body weight 62.6 kg Amy Tang Other [facility] Other 04-08-2021 14:50-0400 Body height 163.83 cm Maribel Randall Other [facility] Other 04-08-2021 14:50-0400 Body mass index (BMI) [Ratio] 24.84 kg/m2 Maribel Randall Other [facility] Other 04-08-2021 14:50-0400 Body temperature 98.2 [degF] Maribel Randall Other [facility] Other 04-08-2021 14:50-0400 Body weight 66.68 kg Maribel Randall Other [facility] Other 04-08-2021 14:50-0400 Diastolic blood pressure 80 mm[Hg] Maribel Randall Other [facility] Other 04-08-2021 14:50-0400 Respiratory rate 18 /min Maribel Randall Other [facility] Other 04-08-2021 14:50-0400 SaO2% (BldA) [Mass fraction] 100 % Maribel Randall Other [facility] Other 04-08-2021 14:50-0400 Systolic blood pressure 131 mm[Hg] Maribel Randall Other [facility] Other Encounters Encounter Date Encounter Type Care Provider Facility Start: 08-12-2023 End: 08-12-2023 ambulatory AMBREEN DAN Not Available Start: 07-10-2022 End: 07-10-[address] AMRIT VEE Facility:[facility] Start: 06-17-2022 End: 06-17-[address] JAYSON FIORE Facility:[facility] Start: 03-02-2022 End: 03-02-2022 ambulatory Lucia Thorne Facility:[facility] Start: 03-02-2022 End: 03-02-2022 Departed Referred MD Lucia Thorne Work Phone: [facility] Start: 02-13-2022 End: 02-13-2022 Emergency department patient visit Kevin Santoro [facility] Start: 02-03-2022 End: 02-03-2022 Patient encounter procedure CAITIE MARSHALL [facility] Start: 01-15-2022 End: 01-16-[address] NAIMA PEREZ Facility:[facility] Start: 10-19-2021 End: 10-19-2021 Emergency department patient visit Miko Kaur [facility] Start: 09-19-2021 End: 09-20-[address] NAIMA PEREZ Facility:[facility] Start: 09-17-2021 End: 09-17-2021 ambulatory Amy Tang Other [facility] Other Start: 09-17-2021 Office outpatient visit 15 minutes Amy Tang [facility] Start: 08-05-2021 End: 08-05-2021 ambulatory Amy Tang Facility:[facility] Start: 08-01-2021 End: 08-01-2021 ambulatory Amy Alvarengakes Other [facility] Other Start: 08-01-2021 Telephone encounter Amy Alvarengakes [facility] Start: 07-29-2021 Telephone encounter Amy Tang [facility] Start: 07-29-2021 End: 07-29-2021 ambulatory Amy Alvarengakes [facility] Other Start: 07-25-2021 End: 07-25-2021 ambulatory Amy Alvarengakes Facility:[facility] Start: 07-16-2021 End: 07-16-2021 ambulatory Amy L Hykes Facility:[facility] Start: 06-25-2021 End: 06-25-2021 ambulatory Amy Hykes Other [facility] Other Start: 06-25-2021 Office outpatient visit 25 minutes Amy Hykes [facility] Start: 04-08-2021 End: 04-08-2021 ambulatory Maribel Randall Facility:[facility] Start: 04-08-2021 Office outpatient visit 15 minutes Maribel Randall [facility] Start: 11-15-2019 End: 11-18-2019 Patient encounter procedure MICHAEL SMALLS [facility] Start: 11-15-2019 End: 11-17-2019 Subsequent hospital visit by physician Pauline Munoz Rad [facility] Comment on above: Injury of right knee , initial encounter Start: 11-15-2019 End: 11-18-2019 Patient encounter procedure MICHAEL SMALLS [facility] Start: 11-15-2019 End: 11-17-2019 Subsequent hospital visit by physician Naima Perez [facility] Start: 08-10-2018 Emergency department patient visit UNKNOWN PROVIDER [facility] [employer] [facility] Procedures Date Procedure Procedure Detail Performing Clinician Start: 01-24-2020 Arthroscopy of knee Miko Kaur Start: 11-15-2019 Radiologic examinati on femur minimum 2 views SERINA Start: 11-15-2019 Radiologic examinati on femur minimum 2 views Michael Smalls Other Phone: Plan of Treatment Date Care Activity Detail Author Start: 02-13-2020 Influenza vaccination Flu vaccine (Season Ended) [place], [place] Start: 2018 Meningococcal (ACWY) vaccine (1 - 2-dose series) Meningococcal (ACWY) vaccine (1 - 2-dose series) [place] Start: 2018 Screening for Chlamydia trachomatis Chlamydia screen [place] Start: 2017 HIV screening HIV screen [place] Start: 2013 HPV vaccine (1 - 2-dose series) HPV vaccine (1 - 2-dose series) [place] Start: 2009 DTaP/Tdap/Td vaccine (1 - Tdap) DTaP/Tdap/Td vaccine (1 - Tdap) [place] Start: 2003 Hepatitis A vaccine (1 of 2 - 2-dose series) Hepatitis A vaccine (1 of 2 - 2-dose series) [place] Start: 2003 Measles,Mumps,Rubella (MMR) vaccine (1 of 2 - Standard series) Measles,Mumps,Rubella (MMR) vaccine (1 of 2 - Standard series) [place] Start: 2003 Varicella vaccine (1 of 2 - 2-dose childhood series) Varicella vaccine (1 of 2 - 2-dose childhood series) [place] Start: 2002 Polio vaccine (1 of 3 - 4-dose series) Polio vaccine (1 of 3 - 4-dose series) [place] Start: 2002 Hepatitis B vaccine (1 of 3 - 3-dose primary series) [place] Atopobium vaginae DN A [Presence] in Vaginal fluid by YUNIOR with probe detection [facility] Work Phone: Bacteria identified in Urine by Culture [facility] Bacterial vaginosis associated bacterium 2 DNA [Presence] in Vaginal fluid by YUNIOR with probe detection [facility] Work Phone: Megasphaera sp type 1 DNA [Presence] in Vaginal fluid by YUNIOR with probe detection [facility] Work Phone: Payers Date Payer Category Payer Self-pay [id number] 2018 Unknown [employer] xxxxxxxxxxx 2018-Present [phone] [address] [place] [address] xxxxxxxxxxx [id number] 2018 Unknown [id number] 2002 Unknown [id number] .593 2002 Unknown [id number] [id number] .593 2002 Unknown [id number] [id number] .593 2002 Unknown [id number] [id number] .593 1989 Unknown [id number] 2.16.840.1.357159.3.579.2 .174 1989 Unknown [id number] 2.16.840.1.427106.3.579.2 .174 1984 Unknown [id number] [id number] .668 1959 Medicaid [id number] Medicaid Private Health Insurance [facility] [id number] Unknown [id number] [id number] .531 Unknown [id number] [id number] .531 Unknown [id number] [id number] .531 Unknown [id number] 2.16.840.1.926256.3.579.2 .531 Unknown [id number] [id number] .531 Unknown [id number] [id number] .531 Social History Date Type Detail Facility Start: 08-10-2018 Tobacco smoking stat [facility] Never smoker [place] Start: 08-10-2018 Alcohol intake Current non-dr packaging tech of alcohol (finding) [place] Sex Assigned At Not on file [place] Sex Assigned At Female [employer] Other Tobacco smoking status No Smokin g Status Entered [facility] Start: 2002 Sex Assigned At Female F [facility] Functional Status Date Assessment Result Facility 02-13-2022 Functional Status N/A [facility] Clinical Notes 04-08-2021 to 02-13-2022 Note Date & Type Note Facility 02-13-2022 Evaluation + Plan note Extrac kasey from: Title:ED Note Author:Irais Waynegaurav Lehman Date :02/13/22 Acute hemorrhoid (K64.9: Uns pecified hemorrhoids) Orders: CBC w/ Auto Diff Comprehensive Metabolic Panel Addendum by Kevin Santoro DO on February 13, 2022 07:22:06 EDT Patient was signed out to by the prior physician I did review full work-up here in the emergency department. Laboratory studies are unremarkable. The prior physician did document presence of a hemorrhoid therefore patient will be treated with Proctofoam also given referral to GI in the outpatient setting for follow-up return to ER symptoms should change or worsen. Diagnosis: Rectal bleeding [facility]09-02-2022 Hospital Discharge instructions Patient Education 02/13/2022 07:28:37 Rectal Bleeding, Cadr-xk-Kvdo Rectal Bleeding Rectal bleeding is when blood comes out of the opening of the butt (anus). People with this kind ofbleeding may notice bright red blood in their underwear or in the toilet after they poop (have a bowel movement). They may also have dark red or black poop (stool). Rectal bleeding is often a sign that something is wrong. It needs to be checked by a doctor. Follow these instructions at home: Watch for any changes in your condition. Take these actions to help with bleeding and discomfort: Eat a diet that is high in fiber. This will keep your poop soft so it is easier for you to poop without pushing too hard. Ask your doctor to tell you what foods and drinks are high in fiber. Drink enough fluid to keep your pee (urine) clear or pale yellow. This also helps keep your poop soft. Try taking a warm bath. This may help with pain. Keep all follow-up visits as told by your doctor. This is important. Get help right away if: You have new bleeding. You have more bleeding than before. You have black or dark red poop. You throw up (vomit) blood or something that looks like coffee grounds. You have pain or tenderness in your belly (abdomen). You have a fever. You feel weak. You feel sick to your stomach (nauseous). You pass out (faint). You have very bad pain in your butt. You cannot poop. This information is not intended to replace advice given to you by your health care provider. Make sure you discuss any questions you have with your health care provider. Document Released: 02/10/2012 Document Revised: 05/13/2018 Document Reviewed: 07/26/2016 Right90 Patient Education 2020 [facility]. 02/13/2022 07:28:37 Hemorrhoids, Ijuj-cm-Bzgh Hemorrhoids Hemorrhoids are swollen veins that may develop: In the butt (rectum). These are called internal hemorrhoids. Around the opening of the butt (anus). These are called external hemorrhoids. Hemorrhoids can cause pain, itching, or bleeding. Most of the time, they do not cause serious problems. They usually get better with diet changes, lifestyle changes, and other home treatments. What are the causes? This condition may be caused by: Having trouble pooping (constipation). Pushing hard (straining) to poop. Watery poop (diarrhea). . Being very overweight (obese). Sitting for long periods of time. Heavy lifting or other activity that causes you to strain. Anal sex. Riding a bike for a long period of time. What are the signs or symptoms? Symptoms of this condition include: Pain. Itching or soreness in the butt. Bleeding from the butt. Leaking poop. Swelling in the area. One or more lumps around the opening of your butt. How is this diagnosed? A doctor can often diagnose this condition by looking at the affected area. The doctor may also: Do an exam that involves feeling the area with a gloved hand (digital rectal exam). Examine the area inside your butt using a small tube (anoscope). Order blood tests. This may be done if you have lost a lot of blood. Have you get a test that involves looking inside the colon using a flexible tube with a camera on the end (sigmoidoscopy or colonoscopy). How is this treated? This condition can usually be treated at home. Your doctor may tell you to change what you eat, make lifestyle changes, or try home treatments. If these do not help, procedures can be done to remove the hemorrhoids or make them smaller. These may involve: Placing rubber bands at the base of the hemorrhoids to cut off their blood supply. Injecting medicine into the hemorrhoids to shrink them. Shining a type of light energy onto the hemorrhoids to cause them to fall off. Doing surgery to remove the hemorrhoids or cut off their blood supply. Follow these instructions at home: Eating and drinking Eat foods that have a lot of fiber in them. These include whole grains, beans, nuts, fruits, and vegetables. Ask your doctor about taking products that have added fiber (fibersupplements). Reduce the amount of fat in your diet. You can do this by: ?Eating low-fat dairy products. ?Eating less red meat. ?Avoiding processed foods. Drink enough fluid to keep your pee (urine) pale yellow. Managing pain and swelling Take a warm-water bath (sitz bath) for 20 minutes to ease pain. Do this 3 4 times a day. You may dothis in a bathtub or using a portable sitz bath that fits over the toilet. If told, put ice on the painful area. It may be helpful to use ice between your warm baths. ?Put ice in a plastic bag. ?Place a towel between your skin and the bag. ?Leave the ice on for 20 minutes, 2 3 times a day. General instructions Take royh-lcs-lwgfpit and prescription medicines only as told by your doctor. ?Medicated creams and medicines may be used as told. Exercise often. Ask your doctor how much and what kind of exercise is best for you. Go to the bathroom when you have the urge to poop. Do not wait. Avoid pushing too hard when you poop. Keep your butt dry and clean. Use wet toilet paper or moist towelettes after pooping. Do not sit on the toilet for a long time. Keep all follow-up visits as told by your doctor. This is important. Contact a doctor if you: Have pain and swelling that do not get better with treatment or medicine. Have trouble pooping. Cannot poop. Have pain or swelling outside the area of the hemorrhoids. Get help right away if you have: Bleeding that will not stop. Summary Hemorrhoids are swollen veins in the butt or around the opening of the butt. They can cause pain, itching, or bleeding. Eat foods that have a lot of fiber in them. These include whole grains, beans, nuts, fruits, and vegetables. Take a warm-water bath (sitz bath) for 20 minutes to ease pain. Do this 3 4 times a day. This information is not intended to replace advice given to you by your health care provider. Make sure you discuss any questions you have with your health care provider. Document Released: 03/09/2009 Document Revised: 06/08/2019 Document Reviewed: 10/20/2018 Right90 Patient Education 2020 [facility]. Follow Up Care 02/13/2022 06:18:09 With:Yu GREENE Address: [facility] [address] [place] [address]- Business (1) When:02/16/2022 07:21:18 With:CAITIE MARSHALL Address:Unknown When:Within 3 Day(s) [facility]05-08-2022 Hospital Discharge instructions Patient Education 10/19/2021 17:18:27 Viral Respiratory Infection, Tuxn-Ji-Srmo Viral Respiratory Infection A viral respiratory infection is an illness that affects parts of the body that are used for breathing. These include the lungs, nose, and throat. It is caused by a germ called a virus. Some examples of this kind of infection are: A cold. The flu (influenza). A respiratory syncytial virus (RSV) infection. A person who gets this illness may have the following symptoms: A stuffy or runny nose. Yellow or green fluid in the nose. A cough. Sneezing. Tiredness (fatigue). Achy muscles. A sore throat. Sweating or chills. A fever. A headache. Follow these instructions at home: Managing pain and congestion Take aksc-wze-xuuuknv and prescription medicines only as told by your doctor. If you have a sore throat, gargle with salt water. Do this 3 4 times per day or as needed. To make a salt-water mixture, dissolve 1 tsp of salt in 1 cup of warm water. Make sure that all the salt dissolves. Use nose drops made from salt water. This helps with stuffiness (congestion). It also helps soften the skin around your nose. Drink enough fluid to keep your pee (urine) pale yellow. General instructions Rest as much as possible. Do not drink alcohol. Do not use any products that have nicotine or tobacco, such as cigarettes and e- cigarettes. If you need help quitting, ask your doctor. Keep all follow-up visits as told by your doctor. This is important. How is this prevented? Get a flu shot every year. Ask your doctor when you should get your flu shot. Do not let other people get your germs. If you are sick: ?Stay home from work or school. ?Wash your hands with soap and water often. Wash your hands after you cough or sneeze. If soap and water are not available, use hand ring sorter. Avoid contact with people who are sick during cold and flu season. This is in fall and winter. Get help if: Your symptoms last for 10 days or longer. Your symptoms get worse over time. You have a fever. You have very bad pain in your face or forehead. Parts of your jaw or neck become very swollen. Get help right away if: You feel pain or pressure in your chest. You have shortness of breath. You faint or feel like you will faint. You keep throwing up (vomiting). You feel confused. Summary A viral respiratory infection is an illness that affects parts of the body that are used for breathing. Examples of this illness include a cold, the flu, and respiratory syncytial virus (RSV) infection. The infection can cause a runny nose, cough, sneezing, sore throat, and fever. Follow what your doctor tells you about taking medicines, drinking lots of fluid, washing your hands, resting at home, and avoiding people who are sick. This information is not intended to replace advice given to you by your health care provider. Make sure you discuss any questions you have with your health care provider. Document Released: 05/13/2009 Document Revised: 06/08/2019 Document Reviewed: 07/11/2018 Right90 Patient Education 2019 [facility]. Follow Up Care 10/19/2021 17:07:38 With:Michelle Mata Address:Unknown When:10/22/2021 [facility]04-06-2022 Evaluation note* Encounter Date Diagnosis Assessment Notes Treatment Notes Treatment Clinical Notes Sep, Rectal bleeding (ICD-10 - K62.5) PATIENT STATES THIS HAPPENS EVERY COUPLE OF MONTHS Sep, Abdominal pain (ICD-10 - R10.9) PATIENT DID HAVE THIS LAST NIGHT ON THE RIGHT SIDE UNDER HER RIBS PATIENT DOES CONTINUE ON THE MEDICATION WILL ORDER SOME TESTING 06 Apr, 2022 Diarrhea (ICD-10 - R19.7) [facility] Other 02-15-2022 Evaluation note* Encounter Date Diagnosis Assessment Notes Treatment Notes Treatment Clinical Notes Jul, Blood in stool (ICD-10 - K92.1) Jul, Abdominal pain (ICD-10 - R10.9) [facility] Other 01-12-2022 Evaluation note* Encounter Date Diagnosis Assessment Notes Treatment Notes Treatment Clinical Notes Jun, Diarrhea (ICD-10 - R19.7) Jun, Rectal bleeding (ICD-10 - K62.5) PATIENT ENCOURAGED TO HAVE A COLONOSCOPY START ABOVE MEDICATION Jun, Abdominal pain (ICD-10 - R10.9) [facility] Other 10-26-2021 Evaluation note* Encounter Date Diagnosis Assessment Notes Treatment Notes Treatment Clinical Notes Mar, Vaginal discharge (ICD-10 - N89.8) Mar, High risk bisexual behavior (ICD-10 - Z72.53) Culture obtained. Treatment given based on history. Discussed safe sex practices. Treatment plan is based off symptoms . Will contact you even if results are negative which may take up to a week to get back. [facility] Other Evaluation + Plan note No data available for this section [facility] Other Evaluation noteNo assessment information available [facility] Work Phone: Hisfdpg general Narrative - Reported* Type Description Date Medical History IBS Medical History Constipation Medical History allergies Surgical History right torn lateral meniscus [facility] Other Hospital Discharge instructions No data available for this section [facility] No data available for this section [facility] Summary Purpose Family History No Family History Records Found Relationship Condition Age at Onset Recorded Date/T patrice grandparent Cardiovascular disease Unknown grandparent Malignant neoplasm of thyroid gland Unkno wn Not Specified Malignant neoplasm of ovary Unknown father Asthma Unknown brother Asthma Unknown Advance Directives No Advanced Directives Records FoundDocuments on File Type Date Recorded Patient Recreation Assistant Expl anation Advance Directives and Living Will Power of Turf Sales Person Advance Directive Response Recorded Date/ Time Advance Directives No April 16, 2021 2:28pm Assessments Diagnosis Injury of right knee, initial encounter Chief Complaint and Reason for Visit Chief Complaint Dysuria Vaginal odor Additional Source Comments INFORMATION SOURCE (unrecogn ized section and content) DATE CREATED AUTHOR 08/20/2018 [employer] DATE CREATED AUTHOR AUTHOR'S ORGANIZ ATION 11/18/2019 [facility] DATE CREATED AUTHOR AUTHOR'S ORGANIZ ATION 02/17/2022 Nicole Ricardo [facility] DATE CREATED AUTHOR AUTHOR'S ORGANIZ ATION 03/14/2022 [facility] DATE CREATED AUTHOR AUTHOR'S ORGANIZ ATION 07/13/2022 [facility] DATE CREATED AUTHOR AUTHOR'S ORGANIZ ATION 08/15/2023 [facility] EPIC REASON FOR VISIT (unrecogniz ed section and content) POSS YEAST INFECTION, ITCHIN G, DISCHARGE SAYS ITS BEEN GOING ON A MONTHPATIENT HERE FOR HOSPITAL FOLLOW UP APRIL 26, 2021, PATIENT STATES THAT THIS WAS RECTAL BLEEDING. PATIENT STATES SHE DID HAVE A RECTAL EXAM.POSTING CARD ORDERDICYCLOMINEPT HERE FOR FOLLOW UP COLONOSCOPY. PATIENTHAS NOT HAD ANY BLEEDING AND HAS NOT USED ANY OF THE CREAM., PATIENT STATES RIGHT SIDE UNDER RIB SHE DOES HAVE EXTREME PAIN. PATIENT STATES THAT THIS HAS ONLY HAPPENED TWICE. Care Team (unrecognized sect ion and content) Team Status: Inactive Member Role Status Dates Lucia Thorne MD RES Attending Provider Active Goals (unrecognized section and content) Goals may be documented in a n alternate section FOR RECORDS PERTAINING TO PATIENTS WHO ARE OR HAVE BEEN ENROLLED IN A CHEMICAL DEPENDENCY/SUBSTANCEABUSE PROGRAM, SOME INFORMATION MAY BE OMITTED. This clinical summary was aggregated from multiple sources. Caution should be exercised in using it in the provision of clinical care. This summary normalizes information from multiple sources, and as a consequence, information in this document may materially change the coding, format and clinical context of patient data. In addition, data may be omitted in some cases. CLINICAL DECISIONS SHOULD BE BASED ON THE PRIMARY CLINICAL RECORDS. [employer] [facility]. provides no warranty or guarantee of the accuracy or completeness of information in this document.
[2023-12-11 23:42] VITALS: BP 148/80; PULSE 90; TEMP 37.1; O2SAT 99; BMI 22.0
--- NOTE | 2023-12-11 23:46 | PC.NURSE ---
pt states she feel like she could be
--- NOTE | 2023-12-12 00:37 | ED.SKABFB1 ---
HPI - Skin/Abscess/Foreign Bdy General Chief complaint: Skin/Abscess/Foreign Body Stated complaint: rash Time Seen by Provider: 12/12/23 00:34 Source: patient and friend Mode of arrival: walk-in Limitations: no limitations History of Present Illness HPI narrative: presents with rash on right leg lora at popliteal space for past 2 weeks. few rash spots on right lower leg and left upper arm. Has been using hydrocortisone cream without much improvement. She is and does not feel ill Related Data Home Medications ?Medication ?Instructions ?Recorded ?Confirmed No Known Home Medications 05/31/23 05/31/23 Allergies Allergy/AdvReac Type Severity Reaction Status Date / Time red dye Allergy Unknown Verified 12/11/23 23:46 Review of Systems ROS Status of ROS 10 or more systems reviewed and unremarkable except as noted in history and below [facility] Social History Smoking status: Current every day smoker Exam Constitutional Vital Signs, click to edit/add: Last Vital Signs Temp 98.8 F 12/11/23 23:42 Pulse 90 12/11/23 23:42 Resp 17 12/11/23 23:42 BP 148/80 H 12/11/23 23:42 Pulse Ox 99 12/11/23 23:42 O2 Del Method Room Air 12/11/23 23:42 Common normals: no apparent distress, average body habitus, oriented x3, no limitations, healthy appearing, alert and well nourished [facility] Common normals: normocephalic and head/scalp atraumatic Eye Common normals: PERRL, EOMs intact bilaterally and conjunctivae normal Respiratory Common normals: normal respiratory effort, no retractions and no use of accessory muscles Cardio Common normals: regular rate, regular rhythm, S1 normal heart sound and S2 normal heart sound Extremity Other: large patch with open center that is sl raised and dry. right popliteal. then several 2mm erythematous papular lesions on her right lower leg and one area on the left upper arm Neuro Common normals: oriented x3, CN's II-XII intact bilaterally, moves all extremities and no focal motor deficits Psych Appearance: grossly normal Course Vital Signs Vital signs: Vital Signs Temperature 98.8 F 12/11/23 23:42 Pulse Rate 90 12/11/23 23:42 Respiratory Rate 17 12/11/23 23:42 Blood Pressure 148/80 H 12/11/23 23:42 Pulse Oximetry 99 12/11/23 23:42 Oxygen Delivery Method Room Air 12/11/23 23:42 Temperature 98.8 F 12/11/23 23:42 Pulse Rate 90 12/11/23 23:42 Respiratory Rate 17 12/11/23 23:42 Blood Pressure 148/80 H 12/11/23 23:42 Pulse Oximetry 99 12/11/23 23:42 Oxygen Delivery Method Room Air 12/11/23 23:42 MDM - Skin/Abscess/Foreign Bdy MDM Narrative Medical decision making narrative: patient presents with 2 week rash that has the appearance of tinea versicolor. she is . Will plan to treat with topical cream only for now and have her follow up with her doctor. will treat with Lotrisone cream as the rash appears fungal Discharge Plan Discharge Stand Alone Forms: Portal Instructions Chief Complaint: Skin/Abscess/Foreign Body Clinical Impression: Tinea corporis Patient Disposition: Home, Self-Care Prescriptions / Home Meds: No Action No Known Home Medications Print Language: Kyrgyz Instructions: Tinea Corporis (ED) Additional Instructions: follow up with your doctor in the next week for recheck Referrals: Physician,Non-Staff, MD [Primary Care Provider] - 1 week
[2023-12-12 00:55] VITALS: BP 132/87; PULSE 81; O2SAT 98
== END 2023-12-12 00:56 | disposition home or self-care (01) ==
PROVIDERS: Emergency Provider Internal Medicine
DX: B35.4 Tinea corporis (principal); F17.200 Nicotine dependence, unspecified, uncomplicated
CPT/HCPCS: 99282

== ENCOUNTER 2023-12-31 10:05 | Outpatient (OUT) | payer MEDICAID, SELFPAY ==
--- NOTE | 2023-12-31 10:09 | US_ITS ---
The [address] [address] Patient Name: AKILAH WEST MRN: [id number] date: 2000 Sex: F Assigned Patient Location: [facility] Current Patient Location: [facility] Accession/Order Number: [id number] Exam Date: 12/31/2023 10:09 Report Date: 12/31/2023 12:09 At the request of: KEITH JARRELL Procedure: US OB transvaginal EXAMINATION: US OB transvaginal HISTORY: MISSED MENSES COMPARISON: No relevant comparison available. FINDINGS: GESTATIONAL SAC: Present and normal appearing. YOLK SAC: Present and normal appearing. POLE: Present and normal appearing. CARDIAC: Present. UTERUS: Normal size and appearance. OVARIES: Right: Normal. Left: Corpus lutein cyst. CERVIX: 4.7 cm in length and closed. CUL-DE-SAC: Normal. OTHER: None. AGE BY LMP: 9 weeks 4 days [facility] BY LMP: 07/31/2024 AGE BY US CRL: 9 weeks 3 days [facility] BY US CRL: 08/01/2024 US/US OB transvaginal IMPRESSION: 1. Single live intrauterine . Electronically authenticated by: SUGAR CAMARENA Date: 12/31/2023 12:09
--- OUTSIDE RECORDS SUMMARY | 2023-12-31 10:25 | XMS_ITS | CCD ---
Author Organization [facility] Care Team Providers Care Brick Cleaner Name Role Phone PROVIDER, UNKNOWN Attending Unavailable PROVIDER, UNKNOWN Referring Unavailable [place], PCP Primary Care Unavailable Naima Perez Primary Care Provider UnavailMICHAEL Staley Referring Unavailab NAIMA Asif Primary Care Unavailable MICHAEL SMALLS Referring Unavailab NAIMA Asif Primary Care Unavailable NAIMA PEREZ Primary Care Physician Maribel Randall Unavailable Amy Tang Unavailable CIATIE MARSHALL Primary Care Physician [phone] CAITIE MARSHALL Primary Care Physician [phone] MD Lucia Thorne Attending Provider Lucia Thorne Admitting Unavailable Lucia Thorne Attending [...] media; 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: [red dye] Drug allergy 01-23-2017 Peer.im Other Medications Current Medications Medication Drug Class(es) [...] for 7 day(s), 15 gm, Refill(s) 0, [facility]/pharmacy #[id number], 162, cm, 02/13/22 6:24:00 EDT, [...] Onset: 06-17-2022 Episodic Other aftercare (1 source) prison (current) use of hormonal contraceptives; 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: [USP HORMONAL CONTRACEPTIVES] Onset: 06-18-2022 Episodic Other circulatory [...] S F Tetracycline >=16 R F Normal [facility] Comment on above: Performed By: #### U RCX #### [facility] [address] [place] [address] Dr. Venancio Soriano ER URINE PROFILEon 3 Bilirubin Ql (U) Negative Normal NEGATIVE [facility] Comment on above: Performed By: #### U MICRO, PREGU, ERUR #### [facility] [address] [address] [address] Venancio Soriano Clarity (U) CLEAR Normal CLEAR [facility] Comment on above: Performed By: #### U MICRO, PREGU, ERUR #### [facility] [address] [place] [address] Dr. Venancio Soriano Color (U) LT. YELLOW Normal YELLOW [facility] Comment on above: Performed By: #### U MICRO, PREGU, ERUR #### [facility] [address] [place] [address] Dr. Venancio FREEMAN A micrscopic examination will be performed if indicated. Normal [facility] Comment on above: Performed By: #### U MICRO, PREGU, ERUR #### [facility] [address] [place] [address] Dr. Venancio Soriano Glucose Ql (U) Negative Normal NEGATIVE [facility] Comment on above: Performed By: #### U MICRO, PREGU, ERUR #### [facility] [address] [address] [address] Venancio Soriano Hemoglobin Ql (U) TRACE-INTACT Abnormal NEGATIVE [facility] Comment on above: Performed By: #### U MICRO, PREGU, ERUR #### [facility] [address] [address] [address] Venancio Soriano Ketones Ql (U) Negative Normal NEGATIVE [facility] Comment on above: Performed By: #### U MICRO, PREGU, ERUR #### [facility] [address] [place] [address] Dr. Venancio Soriano LEUKOCYTES SMALL Abnormal NEGATIVE [facility] Comment on above: Performed By: #### U MICRO, PREGU, ERUR #### [facility] [address] [address] [address] Venancio Soriano Nitrite Ql (U) Negative Normal NEGATIVE [facility] Comment on above: Performed By: #### U MICRO, PREGU, ERUR #### [facility] [address] [address] [address] Venancio Soriano pH (U) 6.0 [pH] Normal 5-9 [facility] Comment on above: Performed By: #### U MICRO, PREGU, ERUR #### [facility] [address] [address] [address] Venancio Soriano SPEC GRAVITY 1.025 Normal 1.005-<=1.02 5 [facility] Comment on above: Performed By: #### U MICRO, PREGU, ERUR #### [facility] [address] [place] [address] Dr. Venancio Soriano UA PROTEIN Negative Normal NEGATIVE/ TRACE [facility] Comment on above: Performed By: #### U MICRO, PREGU, ERUR #### [facility] [address] [address] [address] Venancio Soriano UR MICRO IND INDICATED Normal [facility] Comment on above: Performed By: #### U MICRO, PREGU, ERUR #### [facility] [address] [address] [address] Venancio Soriano Urobilinogen Qn (U) 0.2 {Erick'U}/dL Normal 0.2 - 1. 0 [facility] Comment on above: Performed By: #### U MICRO, PREGU, ERUR #### [facility] [address] [place] [address] Dr. Venancio Soriano URon 07-10-2022 , QUAL Negative Normal NEGATIVE [facility] Comment on above: Performed By: #### U MICRO, PREGU, ERUR #### [facility] [address] [place] [address] Dr. Venancio Soriano URINE MICROSCOPIC ONLYon BACTERIA TRACE Abnormal NONE SEEN [facility] Comment on above: Performed By: #### U MICRO, PREGU, ERUR #### [facility] [address] [address] [address] Venancio Soriano Bacteria identified Cx Nom (U) INDICATED Normal [facility] Comment on above: Performed By: #### U MICRO, PREGU, ERUR #### [facility] [address] [address] [address] Venancio Soriano CAST NONE SEEN Normal NONE SEEN [facility] Comment on above: Performed By: #### U MICRO, PREGU, ERUR #### [facility] [address] [address] [address] Venancio Soriano Crystals LM Nom (Urine sed) NONE SEEN Normal NONE SEEN [facility] Comment on above: Performed By: #### U MICRO, PREGU, ERUR #### [facility] [address] [place] [address] Dr. Venancio Soriano Epithelial cells LM Ql (Urine sed) RARE Normal NONE SEEN /RARE [facility] Comment on above: Performed By: #### U MICRO, PREGU, ERUR #### [facility] [address] [place] [address] Dr. Venancio Soriano MUCOUS NONE SEEN Normal NONE SEEN [facility] Comment on above: Performed By: #### U MICRO, PREGU, ERUR #### [facility] [address] [place] [address] Dr. Venancio Soriano RBC 0-2 Normal 0-2 [facility] Comment on above: Performed By: #### U MICRO, PREGU, ERUR #### [facility] [address] [place] [address] Dr. Venancio Soriano WBC 5-10 Abnormal NONE SEEN [facility] Comment on above: Performed By: #### U MICRO, PREGU, ERUR #### [facility] [address] [place] [address] Dr. Venancio Soriano Urine Cultureon 03-02-2022 Bacteria identified Cx Nom (U) Reason for Exam Dysuria Urine No Growth 2 Days PERFORMED BY: [address] [place] [id number] PATHOLOGIST CONFIGURATOR EDDIE CORTÉS M.D. Normal [facility] Comment on above: Performed By: #### V AGINITIS+ #### [facility] , #### CUU #### [facility] [address] [place] [address] Vaginitis Plus (VG+)on 03-02 Atopobium Vaginae Moderate - 1 Normal . [facility] Comment on above: Order Comment: Reaso n for Exam Vaginal odor Performed By: #### V AGINITIS+ #### [facility] , #### CUU #### [place] [address] [place] BVAB2 Low - 0 Normal . [facility] Comment on above: Order Comment: Reaso n for Exam Vaginal odor Performed By: #### V AGINITIS+ #### [facility] , #### CUU #### [address] Makayla Albicans, YUNIOR Negative Normal Negative [facility] Comment on above: Order Comment: Reaso n for Exam Vaginal odor Result Comment: This test was developed and its performance characteristics determined by [facility]. It has not been cleared or approved by the Food and Drug Administration. Performed By: #### V AGINITIS+ #### [facility] , #### CUU #### [facility] [address] [place] [address] Makayla Glabrata, YUNIOR Negative Normal Negative [facility] Comment on above: Order Comment: Reaso n for Exam Vaginal odor Result Comment: This test was developed and its performance characteristics determined by [facility]. It has not been cleared or approved by the Food and Drug Administration. PERFORMED BY: [place] [address] PATHOLOGIST CONFIGURATOR EDDIE CORTÉS M.D. Performed By: #### V AGINITIS+ #### [facility] , #### CUU #### [address] [place] [address] [place] Chlamydia Trachomotis, YUNIOR Negative Normal Negative [facility] Comment on above: Order Comment: Reaso n for Exam Vaginal odor Performed By: #### V AGINITIS+ #### [facility] , #### CUU #### [address] Megasphaera Low - 0 Normal . [facility] Comment on above: Order Comment: Reaso n [...] developed and its performance characteristics determined by [employer]. It has not been cleared or approved by the Food and Drug Administration. Performed By: #### V AGINITIS+ #### [facility] , #### CUU #### [address] Neisseria Gonorrhoeae, YUNIOR Negative Normal Negative [facility] Comment on above: Order Comment: Reaso n for Exam Vaginal odor Result Comment: Perf ormed at: = - [facility] [address] [id number] Top St[employer]cher: Kim Anderson MD, Phone: [phone] Performed By: #### V AGINITIS+ #### [facility] , #### CUU #### [facility] [address] [place] [address] Tric Vag YUNIOR Negative Normal Negative [facility] Comment on above: Order Comment: Reaso n for Exam Vaginal odor Performed By: #### V AGINITIS+ #### [facility] , #### CUU #### [address] Coding Summary.on 02-17-2022 Coding Summary. [id number] Gh0bWw+PGhlYWQ+PE1FV OQxO99saRGpvJ6XN7yAQ L4SKQISYYOJQR9PQG8ys BD0CTggS2OuvhIs EurydIXnDU25LRh9ZUY4 kSlvSFkaeF3gyRFyB0z9 FtDySU16gU35ISdiNOLy FmP3GeLhvwpgfKKj E1scMqJawCRpHwp+PHRh YmxlIHdpZHRoPScxMDAl EsRxvYrcDR8wHx4mQYBk LWNvbGxhcHNlOiBj r4dpRELvPSzpCJ0buKdi E2BarTE4QHRsg1d3Ol33 dHI+QWKhDQZ2vRjeILje c408WgOid6weVIS7 eCIrOKzaAEF8B55zu1T2 FUViXCBwJDF0kRF2cS6r wHhrjfzaN6TsuPVdFnC0 BAK2yFUrvH5bgLcq dgmukX1mUwd+W68CED3N JTEFCC3XGoq7V6YyMays dHI+SE97QYEsRI22oWOx rDYaq0zgxJl0YmAi VNXwOMG6oRmdPBghb7Tr LMNdA07bbROxr2H3IMGo iLeesIEeSkHrpBU8iR9n OIhqgdixe7rqspdr Tifyt3avqw96cD98F09x ALpaENRiGLO6CEPtBSWn xXwsmv1qaM8rQv9+IDxj g1gtz9zviHr3XaZp WSWgusQcfZpgUVN8q6Xk Kc49W4WvyZuma9OkBnk5 ub54lZNhw5I0wQS2OLyi YDRqgY8eYGkvWbU9 PMFxQkViaS28dGCtQHxc Kc3seVazwZwlWR8nAGVg brriWPCvmM8kGIZcvXJy aDvsRK8cAVXliwgq g708NfKmVHA6XYTgxIVx K0DrdY9mNbDwSVIrJARz O5YpiKFoLQzdP720OBpi AoP9TUAjnyPeX0Iy MWCzsTlwWiV5g2R8Be0L h2RkovxbMRT1ERmkOLW3 OtJ1KkNiBjA0X3AcJjb6 REPvzWfsKG1rY8Sl BVBkocxsrecsgQQ5JSSl BATtsQ64tXDfJKdsMa4x b6W6t010REMmFFQdfL13 Lm3jrUceDJLnfOZH oU8dmxyxf7cuyzakFkMt IIKiNCr0UNa7ENExnWof SsOoQHV3IoF6PKT7sYRg aU1rgPwawheyxZ7p Oyc+G62ruL6aCPE1ENK6 waffEARwxfZwVF89XY30 L7OqYfgwkAUqbOX+PGRp gqPpjIcuJX3zHwNj z5amc7AlIAfyA7RjYFYf ZRtpBjg6TNNgSXL7rMG3 vW1xHWHjOEwhr6A8kLJ3 I9YwgbGzdw5di4lt WSFjXTxvE92tiTHem5Y8 FULzgQM8KNGrjJhgYvNk vJ04Jfx+OSMdjEabg0Gf Dotaf0auf7jklMd5 IjMwJSIgdmFsaWduPSJ0 y0ByOu52Z07fQJunWBVl FNWmCSSlPHBrkNzrma2u wS2oBq1+PGNvbCB3 wSG9fO5tDTDaMgK0DEwx J940VoLmxEVwWytfc2ra x2slhFq4KiJgPYGltaKa eDlgPBU8r8AiWw12 D67cQVvjRKYzRTQnGKJr DMMheCzxgw9bqJ7iVy7+ NL5jw1vjlv30qK26zUP+ CHPzNLQ9uQbrCEbn EIBhtL4lHTzcGuU2RCJv VhBdiS80nLBsIJzvFd5e pPtpwYdbFI1pUSVogimc b194XoYwo6ulYDVh yRDcYJhtKFO6C82xq0O0 UTQqHEXxXYK5kTI7gS9y bGlnbjogbGVmdDsgdmVy kLqhJWeoUCihG439 IHRvcDsnPlBhdGllbnQg RtWfMSy9I2ZtSnm5NLZp hNdmRX4gtHIaSZyuGw3q kOtnnJzxHI2nXCIy feuhj621NnMtw0mzBGMr uVMzSMojFEM4Q46zp9P6 YCFeSDLwHRG1yUA0nU1e bGlnbjogbGVmdDsg qkMduXucNMxkUYonB530 IHRvcDsnPkJpcnRoIERh nMX9XY22DN20cVIsx9A1 sZP8R7AqNKNbhdlh qfcegGG9FQNjNZYyhW24 Uv9ilWmgNy1xWJEvANV6 VEZijNGuL5MowZ7yAeRc EZAyKXBgA1LruWMn HJygF192BTxaTuY7USIh ykTtM3YtNMBzqGgeSvS2 g6D9Ib1RQ6D2KA88MF39 uNGlm4B6kZB3T3Tf VRFewjmdhkuktSI6XDUa STNsaT52Nu0hhLjiUb5h AWVdMHM2PYXcqLGgB6Zo uK0kNmBxSCGyHBIs V1NowRSxTMzwC567IZmx IdZ1TATosgBxI1BpFOFc tSwbNeN4y3K4Us6VIXd6 HH36IY32wOWxu3J7 pRV5X1MnQQRnvyimsxyb hZM5UDNbAAXgkL27Me0a wEulBe9jHCCaOTA3ZWRd lLEyV7GuyA8qYmUi BMWsKXVtR3UiuNJwLMtw M249LZnlKaS1JZXsrlHo B8OvUUFtuRvwDvG9l4D1 Cz5XOIRdAD68LTN9 xFC3WY21IG88B7KyAtfr dGFibGU+PHRhYmxlIHdp ZHRoPScxMDAlJyBzdHls TQ1pGe3nKRVzRJIy nIbekBRmAdZer5ryIIIt WPakLE4atSokW8UviIH5 IOKru3o8Dc54S77fJ7Xm dXA+GKOtuYG5lCU6 kU2iDhHgPmC1WFnqE308 WvJphPVeOcfaw8wal4pq qKt4WmC8SPIfmqWdhIax PFI7u3SzZi42A46b IHdpZHRoPSIxNSUiIHZh vVrrnq5hwU8yNw3+PGNv oYJ4aFG1zV6kFlFnKaO5 GWqoR425TsSeoPYn Ngszp9cnn0tjpUu3HdGv RYFgrqMukQwqOLJ9n8Eo Dx83C6FizEldl2AbGux8 cd40zMFjd4U7hHQ9 Q6RyVKHcieobuWYdsTwk DA9kNCKegihhRSLcgY3p JESxU7y8ZtKdHoN5ZAwc O7LipiD1RDXzoEEg EJotDTE2G15zv6I8HXDs GYObNRI0yQW2nZ3udBgm bjogbGVmdDsgdmVydGlj CBupDQwtW128JYBv cGhaTDGkkM5xDZCetSAk lUzcBS7mPIJvctqfQiMI ZOhWSYzwP3LBQFoVIjqC LE13QC65eVHfn7T9 sCF0K4HqUKEholgyhuyl cJZ3NTFdDIChzZ75nVMm UAnjKx2ct2F3q827TTSx UPTpcL77Wy5sxImi OSJgxPNRbC9uijlzf7fn jipfGdHzRXSeMYx3OCh3 HVUdkVarSoPmTDS5ZaY5 COX5hPIroQ1vpQcv gsqkpG8uSdi+MDIvMTkv MjAwMzwvdGQ+PHRkIHN0 rBzhOZygOGDvfG7mECZt V0u9BpKzEiU9TYjq S3GiPKLbyqnqGo72rH6i FtFeTuH1WMjuY7QdvyG3 SDGzwWHqFGfjKSF9U59k y9O5RBFqHDXsTAT0 bZU2qV0mmFholexjoAFy dDsgdmVydGljYWwtYWxp J234CMRdoAhkIbB7IHsl LCLpTE11YA09uYSj e1V2oYM0X1LsFXKkfkod pambhSX4XZCiIGGfgR11 dGZzJNyyTv2xb6E9q985 IPKpROGugH50Gm8h qCmfQNNhtHKVtK3emnew v1dzfwocHiNoBKKsGSk5 DXf7PRWsxMjbAoWhUWB7 KuL0YLS6eARmcU4s oFxbmlczzK6aVtg+RmVt PCmiUZ05JH71vHQii4D7 pDH3G8MzNAQyuyfliakj eOJ0NHPfFKXhtO76 vMWtFEajDq1gr8H0c916 YCImXQTpeE08Mf7gkNpg GIGfgUOMhD5zpizny9mc cjogIzAwMDAwMDt0 XPs2FGYbfFknYqHeBTZ6 LsL0WUM6yEGivH0bhZph xxzpeW1oJqx+XQ0rihxn mgN8RY74NM27X0Po PjwvdGFibGU+PHRhYmxl IHdpZHRoPScxMDAlJyBz nSfzMF8hOq6iGZVxCLWy vBlzrWTiXzMtb9we GPHgKUwaWI1pqIptN1Bq dBZ8LTBoe0g5Ev54Q40z S8EzxUD+NEKfyRS0cRD9 wK1yCgZsCmF1NUhh X863InErdXEnCtubo1cw v0bwkPk0RsLsYSOuzpPu pGkfUTI7q5QiWb03B51x IHdpZHRoPSIyMCUi RFWknCqdrd8kmK3lOz7+ GRVipIX4qOS4lV0sOwSz CtF9BUpoG658MlLzqIIq MwrrE50mJ9YiiXF+ NYMzMbd9DHChrTmiRF7p yQIwVRqiBt0tJQY8UaHr CnLtPMspE8JvGLAqtgoo wcukpPU4JVSzYZCo hG89Fr2kqFszWs7fWDSf ETM2EIFegEEiP1GeyK0j WuQzHWHbSRCtR9NzqECf WLqbH787RLhbRoR5 NTGmozOhB0OrLZOdrVyh VaJ1i6Y2Ju5HdJesyKCd KN5pIdPyZIz9X2EpWty8 ESOkbCjwAL3npCQm VHbkIf6hgQimeNwyEJ7e PNTsgcktd381GmWem5vr SDFvuISmMZgzALU0B87s m9E5QSVgYPSpSRU3 eJA3eE4xtSscydxxtQAc dDsgdmVydGljYWwtYWxp N331HDJydIjyNtPHMts5 I4VnYxj4IMMndFyg LB1ziVXyTLsfJy7nkUli jPczFL9tDJKwygafy916 VkKqb4qhUNMqfGSeYMis THK5P05vt2A6GZHo QABbPDE2xEC0hC8ayBjg bjogbGVmdDsgdmVydGlj XMkmQCnxI321SICgqIrr Hg3LNta2L1NjTnn7 XHOuhBflRM9cnAGhXNjd Bz6huCqilHwqPA2bMASf utwpr077AvFrx2ovZGJb cQIaCUveXMS2X34g c6Z2FAQiRWMbGPC0lMR5 yP9ifSsesjedaJPcnAtn fqNghMwcCIuuFMzbR006 IHRvcDsnPlBheWVy OjwvdGQ+DY41zk49H8Gk KgfqOuo2QLPiVMO4lTI9 yD3jSGHdOPtkw3R8kOX8 N6TvmrTscd4xu3ir YXBz (more content not included)... Normal [facility] Auto Diffon 02-13-2022 Basophils/100 WBC (Bld) 0.9 % Normal 0.0-2.0 [facility] Comment on above: Order Comment: Order Added by Discern Expert. Performed By: #### 2 657895, 3944671, 34987048, 2307702, [id number] ####[address] [address] Basophils/Leukocytes Auto (Bld) [Pure # fraction] 0.1 E9/L Normal 0.0-0.2 [facility] Comment on above: Order Comment: Order Added by Discern Expert. Performed By: #### 2 745258, 6676268, 26641653, 2962163, [id number] ####[address] [address] Eosinophils/100 WBC (Bld) 0.6 % Normal 0.0-8.0 [facility] Comment on above: Order Comment: Order Added by Discern Expert. Performed By: #### 2 493314, 4673088, 99976148, 8675816, [id number] ####[address] [address] Eosinophils/Leukocyte s Auto (Bld) [Pure # fraction] 0.0 E9/L Normal 0.0-0.5 [facility] Comment on above: Order Comment: Order Added by Discern Expert. Performed By: #### 2 586514, 0582868, 70778222, 1429024, [id number] ####[address] [place] [address] Lymphocytes/100 WBC (Bld) 46.4 % Normal 14.0-50.0 [facility] Comment on above: Order Comment: Order Added by Discern Expert. Performed By: #### 2 948859, 5518820, 48983112, 8265221, 39578970 ####[facility] [address] [place] [address] Lymphocytes/Leukocyte s Auto (Bld) [Pure # fraction] 3.1 E9/L Normal 1.0-4.0 [facility] Comment on above: Order Comment: Order Added by Madeleine Expert. Performed By: #### 2 163659, 3632991, 11878709, 8295826, 38804528 ####[address] [address] Monocytes/100 WBC (Bld) 8.2 % Normal 4.0-14.0 [facility] Comment on above: Order Comment: Order Added by Madeleine Expert. Performed By: #### 2 247982, 4558386, 18035146, 4477937, 12364483 ####[address] [address] Monocytes/Leukocytes Auto (Bld) [Pure # fraction] 0.6 E9/L Normal 0.2-1.0 [facility] Comment on above: Order Comment: Order Added by Madeleine Expert. Performed By: #### 2 476491, 1610970, 10544986, 8681527, 93597654 ####[address] [address] Neutrophils/100 WBC (Bld) 43.9 % Normal 36.0-75.0 [facility] Comment on above: Order Comment: Order Added by Madeleine Expert. Performed By: #### 2 222071, 9814106, 67255832, 9148777, 24709954 ####[address] [place] [address] Neutrophils/Leukocyte s Auto (Bld) [Pure # fraction] 3.0 E9/L Normal 2.0-7.5 [facility] Comment on above: Order Comment: Order Added by Madeleine Expert. Performed By: #### 2 351492, 5608897, 44454195, 3125444, 96699012 ####[address] [address] BB Draw & Holdon 02-13-2022 BB D&H Sample drawn for Blood Ba Normal [facility] Comment on above: Performed By: #### 2 066575, 5037476, 70065917, 1948585, 79169949 ####[address] [place] [address] CBC w/ Auto Diffon Erythrocyte distribution width (RBC) [Ratio] 13.3 % Normal 10.9-14.2 [facility] Comment on above: Performed By: #### 2 273189, 8185845, 60550738, 6823644, 22051276 ####[address] [address] Hematocrit (Bld) [Volume fraction] 34.1 % Normal 34.0-46.0 [facility] Comment on above: Performed By: #### 2 168336, 0780931, 87317928, 3873576, 47315205 ####[address] [address] Hemoglobin (Bld) [Mass/Vol] 11.7 g/dL Low 12.0-16.0 [facility] Comment on above: Performed By: #### 2 858890, 1583640, 80679522, 2440579, 03425084 ####[address] [address] MCH (RBC) [Entitic mass] 29.9 pg Normal 27.0-34.0 [facility] Comment on above: Performed By: #### 2 809901, 1760596, 65963717, 0032587, 75101761 ####[address] [address] MCHC (RBC) [Mass/Vol] 34.4 g/dL Normal 31.4-36.0 [facility] Comment on above: Performed By: #### 2 782075, 6683619, 68391898, 8795909, 91290402 ####[address] [place] [address] MCV (RBC) [Entitic vol] 86.8 fL Normal 80.0-100.0 [facility] Comment on above: Performed By: #### 2 600965, 4750694, 16429910, 2151193, 59202906 ####[address] [address] Platelet mean volume (Bld) [Entitic vol] 7.9 fL Normal 6.4-10.8 [facility] Comment on above: Performed By: #### 2 295633, 2534269, 15013177, 2537125, 80247579 ####[address] [address] Platelets (Bld) [#/Vol] 329.0 E9/L Normal 150.0-500.0 [facility] Comment on above: Performed By: #### 2 140527, 5492452, 12341785, 7500551, 01211511 ####[address] [address] RBC (Bld) [#/Vol] 3.9 E12/L Low 4.3-5.9 [facility] Comment on above: Performed By: #### 2 598559, 9079080, 04977421, 1851311, 08726028 ####[address] [address] WBC corrected for nucl RBC Auto (Bld) [#/Vol] 6.7 E9/L Normal 4.0-11.0 [facility] Comment on above: Performed By: #### 2 710635, 6584708, 97790286, 1145926, 02029780 ####[address] [address] CHEMISTRYOrdered By: SYSTEM SYSTEM on 02-13-2022 Albumin [Mass/Vol] 4.3 g/dL Normal 3.3 - 5.0 gm/dL [facility] Remisol Albumin/Globulin [Mass ratio] 1.3 {ratio} Normal [...] rate/Area] mL/min/1.73 m2 Normal >=59mL/min/1 .73 m2 [facility] Chem S GFR/1.73 sq M.predicted among non-blacks MDRD (S/P/Bld) [Vol rate/Area] mL/min/1.73 m2 Normal >=59mL/min/1 .73 m2 [facility] Chem S Globulin (S) [Mass/Vol] 3.2 g/dL [...] 14 mg/dL Normal 5 - 21 mg/dL [facility] [place] Remisol Urea nitrogen/Creatinine [Mass ratio] 35 mg/mg High 10 - 20 [facility] [place] Remisol CMPon 02-13-2022 Albumin [Mass/Vol] 4.3 g/dL Normal 3.3-5.0 [facility] Comment on above: Performed By: #### 2 000541, 5248658, [id number], 1945537, [id number] ####[facility] [address] [place] [address] Albumin/Globulin (S) [Mass conc ratio] 1.3 Normal 1.1-2.2 [facility] Comment on above: Performed By: #### 2 688176, 3489116, 64479023, 0787010, [id number] ####[facility] [address] [place] [address] ALP [Catalytic activity/Vol] 55 Int._Unit/L Normal 21-98 [facility] Comment on above: Performed By: #### 2 959320, 5516119, 47068934, 6535985, 41930802 ####[facility] [address] [place] [address] ALT No additional P-5'-P [Catalytic activity/Vol] 12 Int._Unit/L Normal 6-46 [facility] Comment on above: Performed By: #### 2 366825, 7080640, 36215190, 8400086, 40136080 ####[facility] [address] [place] [address] AST [Catalytic activity/Vol] 15 Int._Unit/L Normal 5-43 [facility] Comment on above: Performed By: #### 2 808558, 1912597, 02100384, 1904507, 84661632 ####[facility] [address] [place] [address] Bilirubin [Mass/Vol] 0.4 mg/dL Normal 0.0-1.[address] [facility] Comment on above: Performed By: #### 2 301315, 2828532, 55267907, 8186218, 80890471 ####[facility] [address] [place] [address] Creatinine [Mass/Vol] 0.4 mg/dL Low 0.5-1.3 [facility] Comment on above: Performed By: #### 2 636301, 8020177, 49840221, 8521610, 08212128 ####[facility] [address] [place] [address] Globulin (S) [Mass/Vol] 3.2 g/dL Normal 1.4-4.0 [facility] Comment on above: Performed By: #### 2 564380, 5534893, 67407411, 0255478, 69343720 ####[facility] [address] [place] [address] Protein [Mass/Vol] 7.5 g/dL Normal 6.0-7.8 [facility] Comment on above: Performed By: #### 2 541561, 7216527, 11990856, 4699019, 57304333 ####[facility] [address] [place] [address] Urea nitrogen [Mass/Vol] 14 mg/dL Normal 5-21 [facility] Comment on above: Performed By: #### 2 038029, 1290807, 40950157, 9165918, 21856029 ####[facility] [address] [place] [address] Urea nitrogen/Creatinine [Mass ratio] 35 No Units High 10-20 [facility] Comment on above: Performed By: #### 2 019360, 1803711, 83738209, 2320801, 31772078 ####[facility] [address] [place] [address] Anion gap [Moles/Vol] 10 mmol/L Normal 6-16 [facility] Comment on above: Performed By: #### 2 137984, 5304284, 61357923, 5270769, 29319061 ####[facility] [address] [place] [address] Calcium [Mass/Vol] 9.2 mg/dL Normal 8.9-11.1 [facility] Comment on above: Performed By: #### 2 440096, 0160078, 39408466, 9673505, 70131801 ####[facility] [address] [place] [address] Chloride [Moles/Vol] 107 mmol/L Normal 101-[address] [facility] Comment on above: Performed By: #### 2 024364, 8948091, 13807769, 4851034, 89295964 ####[facility] [address] [place] [address] CO2 [Moles/Vol] 23 mmol/L Normal 21-31 [facility] Comment on above: Performed By: #### 2 474537, 8065712, 06626093, 5551112, 39304177 ####[facility] [address] [place] [address] Glucose [Mass/Vol] 87 mg/dL Normal 55-199 [facility] Comment on above: Result Comment: If t his glucose result represents a fasting glucose, interpretation should refer to the following reference range: 55-99 mg/dL Performed By: #### 2 854238, 6912695, 16029573, 5638114, [id number] ####[facility] [address] [place] [address] Potassium [Moles/Vol] 3.8 mmol/L Normal 3.5-5.3 [facility] Comment on above: Performed By: #### 2 [id number], [id number], [id number], [id number], [id number] ####[facility] [address] [place] [address] Sodium [Moles/Vol] 136 mmol/L Normal 135-145 [facility] Comment on above: Performed By: #### 2 [id number], [id number], [id number], [id number], [id number] ####[facility] [address] [place] [address] Consent for Treatmenton Consent for Treatment [id number] 20 [id number] #1.00CD:[address] [facility] Discharge Instructionson Discharge Instructions [id number]# 1.00CD:[address] [facility] ED Clinical Summaryon 2021 ED Clinical Summary [address] [address] ED Clinical Summary Person Information Name: MARIBEL VELEZ/New_Tyrell Age: 21 Years : 2000 Sex: Female Language: Rwandan PCP: CAITIE MARSHALL CNP Marital Status: Single [...] 02/13/2022 07:28:36 02/13/2022 07:28:36 02/13/2022 07:28:36 ADDRESS: [facility] [address] [facility] [id number] PHYS DOC NOTES: Addendum by Kevin Santoro DO on February 13, 2022 07:22:06 EDT MEDICAL INFORMATION: Prescriptions Given: New Medications [id number], [address] [place], [place] [id number], [phone] pramoxine topical (ProctoFoam 1% Foam) apply By rectum 2 times a day for 7 Days. Refills: 0. Medications to Continue with No Changes Other Medications ethinyl estradiol-norgestima te (Sprintec oral tablet) Ib By Mouth every day. ibuprofen (ibuprofen 600 mg Tab) 1 Tablets By Mouth every 6 hours as needed as needed for pain. PATIENT EDUCATION INFORMATION: Instructions: Rectal Bleeding, Pikh-ge-Wnqp; Hemorrhoids, Ryfw-tx-Dtuz Follow up: With: Address: When: [facility], [address] [facility] [place] [address] Business (1) In 3 days 02/16/2022 With: Address: When: CAITIE MARSHALL In 3 days DIAGNOSIS: Acute hemorrhoid Normal [facility] ED Note-Physicianon 02-14-20 ED Note-Physician Basic Information [...] change or worsen. Diagnosis: Rectal bleeding Normal [facility] Comment on above: Result Comment: Bernie shannon [...] 02/10/2012 Document Revised: 05/13/2018 Document Reviewed: 07/26/2016 [employer] Patient Education ? 2020 [employer]. Hemorrhoids Hemorrhoids are swollen veins that may [...] times a day. General instructions ? Take dvuu-yqu-abphvhb and prescription medicines only (more content not included)... Normal [facility] ED Patient Summaryon 022 ED Patient Summary [place] [id number] Patient Discharge Instructions Person Information Name: MARIBEL VELEZ Age: 21 Years Arrival Date: 02/13/2022 06:16:54 Discharge Diagnosis: Acute hemorrhoid Primary Care Physician: CAITIE MARSHALL CNP Provider Information Primary Provider: Ana Braxton DO Advanced Buggy Ladle Tender:None The exam and treatment you received in the Emergency Department were for an urgent problem and are not intended as complete care. It is important that you follow up with a doctor, nurse practitioner, or physician?s early childhood teacher assistant for ongoing care. If your symptoms become worse or you do not improve as expected and you are unable to reach your usual health care provider, you should return to the Emergency Department. We are available 24 hours a day. MARIBEL VELEZ has been given the following list of patient education materials, prescriptions and follow-up instructions: Follow-up Instructions: With: Address: When: [facility], [address] [place] [address] Business (1) In 3 days 02/16/2022 With: Address: When: CAITIE MARSHALL In 3 days In the event that this physician does not participate in your insurance network, please consult with your insurance company to find a nearby participating provider. Patient Education Materials: Rectal Bleeding, Ecrb-ff-Nhoq; Hemorrhoids, Jmts-dp-Rrwf A MESSAGE TO ALL PATIENTS REGARDING OPIOIDS PRESCRIPTION OPIOIDS: WHAT YOU NEED TO KNOW Prescription opioids can be used to help relieve envywhgu-vl-htahua pain and are often prescribed following a [...] care professi (more content not included)... Normal [facility] HEMATOLOGYOrdered By: SYSTEM SYSTEM on 02-13-2022 Basophils/100 WBC (Bld) 0.9 % Normal 0.0 - 2.0 % [facility] HemeAutoSS Basophils/Leukocytes Auto (Bld) [Pure # fraction] [...] MDRD (S/P/Bld) [Vol rate/Area] mL/min/{1.73_m2} Normal >=59 [facility] Comment on above: Order Comment: Order added by Discern Expert. Result Comment: eGFR is race adjusted. AA=. Performed By: #### 2 [id number], [id number], [id number], [id number], [id number] ####[facility] [address] [place] [address] GFR/1.73 sq M.predicted among non-blacks MDRD (S/P/Bld) [Vol rate/Area] mL/min/{1.73_m2} Normal >=59 [facility] Comment on above: Order Comment: Order added by Discern Expert. Result Comment: Clinical Psychology Professor linwood kidney disease could be indicated at eGFR's of less than 60 mL/min/1.73m2. Kidney failure is indicated at less than 15 mL/min/1.73m2. Performed By: #### 2 [id number], [id number], [id number], [id number], [id number] ####[facility] [address] [place] [address] Coding Summary.on 02-06-2022 Coding Summary. [id number] Gh0bWw+PGhlYWQ+PE1FV WIgV39yxBVhdC5OO0jYJ C9PMVOSLTJZAL6CWF6pp IL1KZxpQ0CxdlTv YfpowZUdLL90NWl1OMX1 bYutBFlqbL2drWSeO2z7 CmHwEI39jH57HEaxHXXl IyW9PoNhkrapuMVa G4uzPfMxdOYgBgk+PHRh YmxlIHdpZHRoPScxMDAl PiOoeKdrXQ6nXk6nBIPf LWNvbGxhcHNlOiBj c8bsZPSfHZgtZQ2plNom P8VxuBB2JWYhx5p8Pf97 dHI+TNPgIQT3iIqyVIxt z014OgGja4gyNPG4 dOLpLVetCRH5R77ms8O9 DEQjCUPzSUY2bHB1uB2o rEfbrfihV1IzzCBiBhU8 GJB0hIRxrY0baCcq ziqekC6uEjw+X70NUE1L XDXMHV0KKgz4A4DpDvjb dHI+PN23BTLuHD01oYZt uBVrx8zvhUi9XeBc VUAtVQK2aRudPWrox6Vh BHBnO23jiDYzu0N1SPGa xDrkqSShMyEjuOI0gY7z UAiksclev4xwenng Otabg8npkp13cE23K04o NIwyCMWtILT1QEFqWMJs hUsrep3enO7bOc3+IDxj y2lub9jqbKl8LbQc FUOmztOeeExtAAD4f3Pe Lm74V3PjrDdsb3WxAey7 yd91wTHia0D9mQX5TBgm WWVhdA6nFSixVdX8 STHqNnBwyP39tBLpUJsg Mj2cfYybpIpvUS7iKZTy slrxUQNifF0xXMJgrABx wAjrZY4rITGkioja j851VdNfJCY2JIPkuWSc B5IpzW5jUlEtHKLmKLRp P4OcdZOeIRwgP573QWkj TdW2BFIdebMcX7Sv FNVruNguOmE9l3B5Ni4G x8UcrwcxSJZ9DArgFDD8 GzP0XaHmLiV0X8NqFvb3 HYBsgOpaKW8gU8Vy SAXxseqghswtgHE5SNYt LGXvpR09xQHgXZogPu2d a8I8n204DQJfFOXmkK51 Ro4cxDfyFIBwlRTB hE2imxgdn3rljqlfOhKj QJQxRAl3GSd1PPOmrPfd LdGqKWC0RqJ9ABE6dTIq mG1zwZoumioiqK1v Oyc+K90tnK6fPMD3FWA0 oizdJAMxckSdNC71NJ50 R1RmWehafQUbwWP+PGRp uhNdrUexAP2oYqXw p8teh7QuSUauG8QlJZIb XHhwQyh4ICFvMIH6wBX5 zI9mPEYoKSion9Y8hLK2 D0YukeBozj1ni1of UZPeHRxzE33ksMIch8H4 CAImnKM0UTFmbXkuBdLb qG23Nqy+JZFrhJspc8Cb Sejfj9fzh6evaDh4 IjMwJSIgdmFsaWduPSJ0 q5YaZf52P53fEJznCEKv CNXgIIKkOUMibUsnvi1u fI3oNk6+PGNvbCB3 rJR6pP4tAGIjCwR1YDhy C059BvXpnOEzNzwdz6do t7mptOl6AoZaXJKjhpHp iTjlYNA7w4SmVr99 J92tYWlnNQUuMYOaSYNm NLGqoXkmah2rnY9yEk7+ NG6zx3zdsc44kB61rGU+ LHDvKFL0uYyxRNrk KCLzrC8gSRzcTuD4LTXh IsBevL23kZAoZMlaRp1t aOawjPtqQR0wEXCedpfv k007JuPnu4gzUVHj qYFiKFkeVSJ7Y05in5V4 RNOnEXZjNLX7vCC3nW0d bGlnbjogbGVmdDsgdmVy eWdvFFwaOEovW054 IHRvcDsnPlBhdGllbnQg InPsLKr8C7UuYok2GYAf wVrgCK0udGMgOLamGb7j kUnmeLktHN2sBADz nksjp677RrKxp2hsRLVw zSAjAKidUVY8T96zj8G9 NPBkBOHkOKK6jRE0tV6d bGlnbjogbGVmdDsg fsNpeEofEXosHUnlP380 IHRvcDsnPkJpcnRoIERh hCT3YX31LH20jQLqq9B0 kHS5H7ZcKXIccwai jsyblAW2TPShQODqdJ62 Il4waZyrOm8zAWElVPT4 PBHhnPFcK0LmmB7sBeTb YHMqVYBvV4SdgVYh VNcsT254OHdsNhK5UKYd wmCdY6VbRJDaxOxzGyA8 w7R5Dg7JF5Q0XI87UN04 jJBlm4R7fDS8P8Nj ITTcxvhzjmhtjVR0SYQd VQLviR09Fw1pcQgfRp9z EMAyXXO9PITwqTStJ0Ks vC7qAsUhNPJnDSVo J2CvgHYhBCahN725ECan WgT8EXIsutGcZ4RhWPNu uIlnGeG3h8W7Ca6APNv5 CT53CQ02mPGqt3O7 sXH0U2AaSNTtzksucbaq lLW5LTKvKWAemI91Et1r fYjpWt6tIXKdHES4JJWs aEDaF7SoqF4sMmJq TSNpSHUaN7LimFGdMGfc S451QZwlMgY5ASGnqxDq F6IgNTDydFfbSaR5f9U1 Cf0IGIApHX70QTY8 aQI1QW13ZT91R2JyAacf dGFibGU+PHRhYmxlIHdp ZHRoPScxMDAlJyBzdHls IL8mPv7jNRTyEHDm lQgilDPdWsGsb5noGZQn FIbgYC1wdUjkS7WbhPA3 HXJxp1j5Np87N29aH1De dXA+RRUolJH4rIK4 oB4oHkToPbC4CNugP661 TbNtpRQzAahlz1bau0kk uLc1FpQ3UNJyjvVquNju YLV1s8KiOd78T03q IHdpZHRoPSIxNSUiIHZh yFtzbh3uxA2jOv9+PGNv lKR8rSW7yC6pIfOzLlF8 WSodP471QuRhvYPv Uuxch6pxp6fwjHl4FrYx LVEzavXpiLfmUFG7j3Pf Vf97P8NojRwxz8XhNxd1 cg67jMOqh9X5jZZ7 N7JqHTKfkjnmcEThzTmw NB5cJQLvlmggPJCznT6r GMBqX9p4MeDpTdJ4HCyb M0CrauO3WERchKMv VGgsELG3V47id8X8MCRh UZJpVMU0kZW4hN2jzTsh bjogbGVmdDsgdmVydGlj TEgmOPydU652ULLe qXacTGFfyN0mMKSdrTEy mVifFQ9pYZXcvxizMmJF BYxBHXwyR9CETUySNkuU YE51SC36nGPae6E9 lIF6F2KmEJXibamszuxn gAE2JSKbXECyoI16cJQr SEoyRz9ol4Z7d910BPTq EVPisF76Og1apFok USVltSZDaV2egihjf8um pffdVlPnGQDgPIv8KQk7 VVXxfWtyDmIxYVX0YdU1 CPX9cICfeN6uvKxn krpfpQ0xMnx+MDIvMTkv MjAwMzwvdGQ+PHRkIHN0 vCwbQWixMGUasB3mHLZo Q2v1SgGgEgS4PNxk D4ZfASIonypyEv97dM6s VdXrDeI7NZfwH5BtezY9 VPOhvDLpLObcUAY3W27u h9T4DCIzLFYxNWL3 hYW7cZ3gkOvycqldvBVb dDsgdmVydGljYWwtYWxp E670KYQinAzgBwN9BOvd STQxCU02EK18uOGr l4H3dTO4E8UaAFMqbttg usrroEE4XISfEAOizE21 mAMwARdvBz0ih0D2p393 FSTjTXTzeV54Wn6t lJkmSJLyyZUTfA0ntstu n2vaqqxlFfHhRWZoNUj2 KBc6TLErtCjsCmWqIDG7 NaC9SOL9hYDimK8n wBcfoxeoyM0vCwe+RmVt YJaiTM53EM41iSXdd0Z9 eDJ8Q5FlRBOykabjarlz qIL8XJScBDYehH35 oUErHCyoWd3pk1N5i401 ZRDcEPKjbI43Ef5jsAsd MCJnlDYTxV1zjcssj9nm cjogIzAwMDAwMDt0 FHt4TFXsnHbdXmHeRXI9 ZbR9VLZ6jSAxdV1ajYqr mcdofA1kQrg+M6Q9xLQ2 aWVudDwvdGQ+PC90 mr70T5PyUageJfb2DPQh GOO3rWZ4xN5bUGBaXTnr d4H9yYQ0B9RksuVfjl7a k0vcAJQaNIvhE10q zVPkk2K1QPAfiXA2LAHy lOmpHxSydJ41Ysa+PGNv iAyva3BlUaxou3hvt0vh rNc2DzVkVLLjsyDg rSafOAA7w4QbNl66I14g IHdpZHRoPSIzMCUiIHZh mHdapc0vkT1lNb5+PGNv aQX6tIG9oZ9yDuYa EbH4KBuqQ319RnPutAIp Mkrxc8lcf4ditRu2UfJa XQMtzeAuiQsbIOI8p0Lr Tb82F2UgxYbwc1Rr Nob1rf15tPYdq7F1iLR9 V7LgCPHwerzvwMNruYjd EF4jAEVopukmYTWomS8y LOSoL6j9VjWnWpH9 ESdoL9TwqxQ0MKBqkSEe BZHamTWLiI6zjbugk9qy uimyIhIpEGQoQVb2HZt2 LWFsaWduOiBsZWZ0 AkS3HFG5wEFumT7vfNio mwvujD0oOaq+AGc1c6zx xMRzKT2fvQA1TT26RF75 fBLns1R5tKR6V4Ua GBSezvicpmzrbEB9GWFo MWLcxM50Zf6tcFxhFb2h CRDxVPY2FFMmeAVlU9Ub bK3qSvQoCARvTYXc X5UxuPKxZMqxN521JCcx XbD1AGHgxuNbI9DoFGYr qHobGcY8e3R4Iz2OQO77 PS09IN96mKRsb4G8 sJD7C6QwGPIyioyklsyf rXC4TCNxOLMllF75Bi9q nHfyZc2hEAHlBGR8MCTr dIKmM1YwrD8tZnDc NSCqIILuX2RznKVsSHoa D673LSmdHpB2VHCsrmDi Z8HxGYCkeFrfYnA0o3W0 Ue7XMy47WD21IY70 xKWsr5Y1sHJ8J7QuQKJn ejtqmauhfNZ7PIYzMDGs nO16Br2ukHcgNd7gZNNg TLG1IDAhqPMzR6Vc kB2eBmFlCYTkITQuM8Db cIVgPPhbC950KQuwQtN4 FZWeqvRhB4NjSLJdrFer EqQ4m5I1Xa0WEFtv sgb4C1IiOsdpiUD+PC90 TXTwFM58aKEggWMbv2ev kRp0XoWzWXOgWRS2xYtj PPvyw2JxJBLoP88u bGFw (more content not included)... Normal [facility] Consent for Treatmenton 01-13 Consent for Treatment [id number] 20 [id number] #1.00CD:[address] [facility] Physician Orderon 02-03-2022 Physician Order [id number] #1.00CD:[address] [facility] XR Shoulder Complete Righton 02-03-2022 XR Shoulder [...] M.D. Transcribed by: CHRIS Technologist: JULITO Hanson [facility] CBC AUTO DIFFon 01-15-2022 BASO # 0.0 103/ul Normal 0.0-0.1 [facility] Comment on above: Performed By: #### C BC #### [facility] [address] [place] [address] Dr. Venancio Soriano Basophils/100 WBC (Bld) 0.6 % Normal 0.2-2.0 [facility] Comment on above: Performed By: #### C BC #### [facility] [address] [place] [address] [address] Venancio Soriano EO # 0.1 103/ul Normal 0.0-0.7 [facility] Comment on above: Performed By: #### C BC #### [facility] [address] [place] [address] [address] Venancio Soriano Eosinophils/100 WBC (Bld) 1.3 % Normal 0.9-7.0 [facility] Comment on above: Performed By: #### C BC #### [facility] [address] [place] [address] [address] Venancio Soriano Erythrocyte distribution width (RBC) [Ratio] 12.8 % Normal 11.0-15.0 [facility] Comment on above: Performed By: #### C BC #### [facility] [address] [place] [address] Dr. Venancio Soriano Hematocrit (Bld) [Volume fraction] 36.5 % Normal 36.0-48.0 [facility] Comment on above: Performed By: #### C BC #### [facility] [address] [place] [address] Dr. Venancio Soriano Hemoglobin (Bld) [Mass/Vol] 12.2 g/dL Normal 12.0-16.0 [facility] Comment on above: Performed By: #### C BC #### [facility] [address] [place] [address] Dr. Venancio Soriano IG # 0.01 10e3/ul Normal 0.00-0.03 [facility] Comment on above: Performed By: #### C BC #### [facility] [address] [place] [address] Dr. Venancio Soriano IG % 0.2 % Normal 0.0-0.5 [facility] Comment on above: Performed By: #### C BC #### [facility] [address] [place] [address] Dr. Venancio Soriano LYMPH # 2.7 103/ul Normal 1.2-3.8 [facility] Comment on above: Performed By: #### C BC #### [facility] [address] [place] [address] Dr. Venancio Soriano Lymphocytes/100 WBC (Bld) 42.9 % Normal 20.5-60.0 [facility] Comment on above: Performed By: #### C BC #### [facility] [address] [place] [address] Dr. Venancio Soriano MANUAL DIFF REQ NO Normal [facility] Comment on above: Performed By: #### C BC #### [facility] [address] [place] [address] Dr. Venancio Soriano MCH (RBC) [Entitic mass] 29.4 pg Normal 26.7-34.0 [facility] Comment on above: Performed By: #### C BC #### [facility] [address] [place] [address] Dr. Venancio Soriano MCHC (RBC) [Mass/Vol] 33.4 g/dL Normal 29.9-35.2 [facility] Comment on above: Performed By: #### C BC #### [facility] [address] [place] [address] [address] Venancio Soriano MCV (RBC) [Entitic vol] 88.0 fL Normal 81.0-99.0 [facility] Comment on above: Performed By: #### C BC #### [facility] [address] [place] [address] Dr. Venancio Soriano MONO # 0.5 103/ul Normal 0.3-0.8 [facility] Comment on above: Performed By: #### C BC #### [facility] [address] [place] [address] Dr. Venancio Soriano Monocytes/100 WBC (Bld) 7.2 % Normal 1.7-12.0 [facility] Comment on above: Performed By: #### C BC #### [facility] [address] [place] [address] Dr. Venancio Soriano NEUT # 3.0 103/ul Normal 1.4-6.5 [facility] Comment on above: Performed By: #### C BC #### [facility] [address] [place] [address] Dr. Venancio Soriano Neutrophils/100 WBC (Bld) 47.8 % Normal 43.0-75.0 [facility] Comment on above: Performed By: #### C BC #### [facility] [address] [place] [address] Dr. Venancio Soriano Platelet mean volume (Bld) [Entitic vol] 9.5 fL Normal 9.5-13.5 [facility] Comment on above: Performed By: #### C BC #### [facility] [address] [place] [address] Dr. Venancio Soriano PLT 323 103/ul Normal 150-450 [facility] Comment on above: Performed By: #### C BC #### [facility] [address] [place] [address] Dr. Venancio Soriano RBC 4.15 106/ul Critically low 4.20-5.40 [facility] Comment on above: Performed By: #### C BC #### [facility] [address] [place] [address] Dr. Venancio Soriano WBC 6.2 103/ul Normal 4.0-11.0 [facility] Comment on above: Performed By: #### C BC #### [facility] [address] [place] [address] Dr. Venancio Soriano PROF 14(COMP METB)on 022 Albumin [Mass/Vol] 4.0 g/dL Normal 3.4-5.0 [facility] Comment on above: Performed By: #### C MP #### [facility] [address] [place] [address] Dr. Venancio Soriano Albumin/Globulin [Mass ratio] 1.2 {ratio} Normal [facility] Comment on above: Performed By: #### C MP #### [facility] [address] [place] [address] Dr. Venancio Soriano ALP [Catalytic activity/Vol] 67 U/L Normal 46-116 [facility] Comment on above: Performed By: #### C MP #### [facility] [address] [place] [address] Dr. Venancio Sroiano ALT [Catalytic activity/Vol] 16 U/L Normal 14-59 [facility] Comment on above: Performed By: #### C MP #### [facility] [address] [place] [address] Dr. Venancio Soriano Anion gap [Moles/Vol] 11.8 mmol/L Normal [facility] Comment on above: Performed By: #### C MP #### [facility] [address] [place] [address] Dr. Venancio Soriano AST [Catalytic activity/Vol] 9 U/L Critically low 15-37 [facility] Comment on above: Performed By: #### C MP #### [facility] [address] [place] [address] Dr. Venancio Soriano Bilirubin [Mass/Vol] 0.3 mg/dL Normal 0.2-1.0 [facility] Comment on above: Performed By: #### C MP #### [facility] [address] [place] [address] Dr. Venancio Soriano Calcium [Mass/Vol] 8.6 mg/dL Normal 8.5-10.1 [facility] Comment on above: Performed By: #### C MP #### [facility] [address] [place] [address] Dr. Venancio Soriano Chloride [Moles/Vol] 106 mmol/L Normal 98-107 [facility] Comment on above: Performed By: #### C MP #### [facility] [address] [place] [address] Dr. Venancio Soriano CO2 [Moles/Vol] 24.9 mmol/L Normal 21.0-32.0 [facility] Comment on above: Performed By: #### C MP #### [facility] [address] [place] [address] Dr. Venancio Soriano Creatinine [Mass/Vol] 0.58 mg/dL Normal 0.55-1.02 [facility] Comment on above: Performed By: #### C MP #### [facility] [address] [place] [address] Dr. Venancio Soriano EGFR-AF BRUNEIAN >60 Normal >=60 [facility] Comment on above: Performed By: #### C MP #### [facility] [address] [place] [address] Dr. Venancio Soriano EGFR-NON AF BRUNEIAN >60 Normal >=60 [facility] Comment on above: Performed By: #### C MP #### [facility] [address] [place] [address] Dr. Venanico Soriano Globulin (S) [Mass/Vol] 3.3 g/dL Normal [facility] Comment on above: Performed By: #### C MP #### [facility] [address] [place] [address] Dr. Venancio Soriano Glucose [Mass/Vol] 94 mg/dL Normal 74-106 [facility] Comment on above: Performed By: #### C MP #### [facility] [address] [place] [address] Dr. Venancio Soriano Potassium [Moles/Vol] 3.7 mmol/L Normal 3.5-5.1 [facility] Comment on above: Performed By: #### C MP #### [facility] [address] [address] [address] Venancio Soriano Protein [Mass/Vol] 7.3 g/dL Normal 6.4-8.2 [facility] Comment on above: Performed By: #### C MP #### [facility] [address] [address] [address] Venancio Soriano Sodium [Moles/Vol] 139 mmol/L Normal 136-145 [facility] Comment on above: Performed By: #### C MP #### [facility] [address] [address] [address] Venancio Soriano Urea nitrogen [Mass/Vol] 9.0 mg/dL Normal 6.4-19.3 [facility] Comment on above: Performed By: #### C MP #### [facility] [address] [address] [address] Venancio Soriano Urea nitrogen/Creatinine [Mass ratio] 15.5 mg/mg Normal [facility] Comment on above: Performed By: #### C MP #### [facility] [address] [address] [address] Venancio Soriano Discharge Instructionson Discharge Instructions [id number]#1.00CD:[address] [facility] ED Note-Physicianon 10-23-19 ED Note-Physician Basic Information [...] Orders: Influenza A&B Ag Rapid COVID Antigen ([facility]) Disposition Plan Patient Discharge Condition Stable Discharge Disposition Home Discharge Prescription List Prescriptions No active prescription medications Follow-up With When Contact Information Michelle Mata In 3 days 10/22/2021 EDT Additional Instructions: Patient Education Viral Respiratory Infection, Djlp-[id number] Attestation This visit was performed by both [...] Diagnostic Results No qualifying data available. Normal [facility] Comment on above: Result Comment: Elec tronically Signed By: Cherry Hazel PA-C\.br\Date and Time Signed: 10/19/21 17:19 EDT\.br\Electronically Co-Signed By: Miko Kaur MD\.br\Date and Time Co-Signed: 10/22/21 10:35 EDT Coding Summary.on 10-20-2021 Coding Summary. [id number] Gh0bWw+PGhlYWQ+PE1FV KLhS05rfFHeaO6MT1hPP V2WKSOCFWUJXL5UOZ5fz RW5UGvaV4IaswLv HozqzDUrCG72KSy2BID0 yFzwSGwhnC9flFHpN3i8 PwBiSH54pU37FOylTAXk RkR2MuVhdiwpyYPb A7ucHtEvdWTnThm+PHRh YmxlIHdpZHRoPScxMDAl WhDdyPqjHT2aRe3qGGJd LWNvbGxhcHNlOiBj h5ifTDHzXFyoBS9llLpr D1UqjBF2BZQzf4q6Tg43 dHI+MKNhTSJ5nSxrHCkg t679SbQok3fnQAI0 gYRjBRfbAUG7V54wn9W2 ZEJwBEYhPJF1mZG2lC7q bYrtefyxP0DzdLGbNaI3 TSD5bGFplS2xaSkw ucxqaO7qZzl+Q60QXY7B LPDHIA2EFqv8T7QxGtmg dHI+RZ60NWJmLW63dINt lSAhu4ebkQl8DsBj OVFhMJM5lVngXSamv9Lc SQLoP33ysZScx3T6YEXr rCgfvYMoCsNeaRA2tV0b RXquzount7tfufnh Ibsof8uzrt24xN91X57z MFilMQFsKBM1KDOdEAEo mTtfhf3glE9iWi7+IDxj v8mnv6wekUr7JwNc FVTwamQynZrvWPK5z1Bu Ox98F0OspQomq5FeNrd3 oy01qZAhx7S9qVX8UTik CGKfmV6vBGbpEoN3 IJOfJdGdjF71uCGqQLer Mt2hnGrykUhaID6lRVPh dmchAXYvxN6pHRWpyKYd lTtaNH7pDHHafbua k402NzNpBSJ4UTDtpTIq T9ZrdS9kUqDgQQTmBZIh W3XcvEKgBYgpU896KMrm ZxR0YVZtfdJyE3Gj VJFgdYcfZwT3z1J8Kj2V w2MdutawHSH0VMwmPEB6 NiN3FpDsRoM2F1ErEhp5 QZKodLthJQ4tX7Gs WDUlarfbbjcmpMT3YNYp UHRkzP25dIJdUNcgUu6q f1O6i706EBTuJDFpbO56 Is7ddRovJKBfzTNR cX3guffzz3bykmxdBuAn GJJsMNv6ZLu9TEZtdEyx YhTqZXU4MaR6XOA0zKVd tE1jbLsdruxiwA8u Oyc+Y95abX0aKTR2VGD7 spslLLAikkBuUF50CI32 R2OlNxkkgEIyzSH+PGRp hkGymPpqBV9bAhKy a6gfx4ScOGlyF1RjYZJm XDrtJbv0HQDcBIJ7vLJ0 jV5mMCIeSFcfp0I1vFD6 Z4UpntDusk4jn4tt JGPhIWcrG76edFYsc9J5 SHOleXA1FXWtgDlsRaNz iG70Ewe+NZWblWnjm7Zi Xmayg7mdj9wnbQb0 IjMwJSIgdmFsaWduPSJ0 y4TbJd45Z75gEOuoNBFo IBRxXDQqAKMcxShokj6o bZ3zVi0+PGNvbCB3 kRS9uX9vPYUyNkL9SVbe Y871IlWhiGEwUuvuf1le w4hhwDz4WsBzYOJaluIp vHpcMSU4q6SoQn36 U66wDShdQCAfVWYdWREw MJQciRuxfg6lgW8vKg8+ FA0dl5zcxw94dO41kQW+ XPQkRIJ2gYohCSzi RVTctF2eVJusQuT1BCRu JtTltR23nKLrMSqjVq6j rRtulXmdDS8pIXKponjd l906XvUpz8azJAWt aUArPZjuHIK2E71mm6E2 XNErOPRnASA6aCM0nO4w bGlnbjogbGVmdDsgdmVy eUrkMZnnJOmkT240 IHRvcDsnPlBhdGllbnQg OmWiVUs5H3ZhNlw3MNAz gRtdKE7tdSVbHRceXh1u mRvvsRtsJJ3pPPWt ibrxt740XnTqr2ihRXQg zPDdUQjnOIK6M01ox1P4 QGYyZPKzGKS7vMI6cB7f bGlnbjogbGVmdDsg yaOyaMciLZqnVEcnA464 IHRvcDsnPkJpcnRoIERh pPF7UO94AC75eIGpa9I0 kZH6D2RsIMXjwxcr hpiomJY1DUVdEAEozB08 Ic0eyWwcFk8tKMFrGYC5 PHBhwIXkA1NamY6zZoWc AQUbDGLiO5HaiXIf PZgoJ681WOlwCfF8XJOi qoJjJ3IyEMVjgWfeUgI4 k0H8In3IU8K9PN47RW17 lVTdr5F1pIR8Z7Gh OEZfmectmxivrYC5HLNg QCSemO40Bj6aoVlkNm4u BILyIUV0AJSxpKKfO3Ec cC3lFiWrFPCmWNNb K5JldGHkHGqlQ532JAoo DyY5YIEvjhWgL8HsFRJe aTmsJqA1t0X3Kw5PFZh7 IE62JD45rOSbb0G9 bGO4J5ObBTNufhwiohbb pRV8IDZxMFYrrP89Er2r yOpkQr0xCLKiIRM5QSBh zPGmB5InfW8yUpWd LSAmFCQbG2McsUCdBBee P410XQwbRgI9AXMawaSt Y8EeJOKjkFsmFkT3r6L0 Ag6VWDLsVQ00NZQ2 xLK5NH58TR07F8IgYifg dGFibGU+PHRhYmxlIHdp ZHRoPScxMDAlJyBzdHls QV4hRr5vDHKeGNRy mQtbgIIyJwUpf4rzXJZt JMczXA1knMlfM1PckNT0 EKHqk7u2Lf30O45iH8Pn dXA+EIUysII4sEX3 gT8oNbBiBqN7VCrwY812 NsPdvQKtRqlwz0fmi5dh wSe3NtR5PARfodVtmIeh TGJ0j5OqDz93P71y IHdpZHRoPSIxNSUiIHZh uPaoqg6jmO0cDq2+PGNv eQJ2ePG9lW2lJjOyKtX2 FRxdI118UrZfkEHb Dixrh3vjl6eehMn4HxKu JOWwwuHclSjcXTP4z1Da Lm74W9WivRhou7GoHot3 ng19aYSuf7J0gQA7 D2LrRFMtfbgwgDIyfCzf SJ1bRNThxhqsHNAwpT2n DWGcE5v7RjHbZyE9MJmg X7JvjvM6EDMieOXn YTydYDY4O06xs1Y6BXFu BSHeCFB1cFA2sM7djBtn bjogbGVmdDsgdmVydGlj UMtaTNwsJ872UZPo mGyxBDYmuD0gFYBpxAVe bSndUW0yCTLncledZhQI SYhEBYyiQ4VUQLjFMtyS YE88PB16xCNlq9V1 lVJ2K2HrYCNrwnwxmdjv xTO4TVItKJIvqL92yVJh CDjmWm5xy7R2y487GOFd SUAcfG93Xw9knQhg DJDbqERXvU5uffuom2sc shlhOzLyFEPnFWr5WEf6 HCOxqLcnFpPkRNG7VcH8 JYD1iPIkjA1bkZts imyxaZ0nIet+MDIvMTkv MjAwMzwvdGQ+PHRkIHN0 xBcnMBxwPHXhlV5wUXFb B1o4JaUhFkT6OPvv Z9WsZDWxalmyEe74vV3f RhWgIqM1PAjqU9NvdjJ7 GIQjmCTbSZeuVDZ6K45h a5K8OVRlQLYfLUH3 wFY4uL2xjNkwyjnyqYNj dDsgdmVydGljYWwtYWxp F178UDCppWsqUdT6ISgr ZUPaOU60AK06pZOl n4O6cKW8Z9AkGYFuuqdx donbxLQ4XHKtQOSyyI95 qCAxMKbkHr6de6Z4o054 OAIrCGHcrW49Iv7f rIdgQVOdqKNEzV3xtbhp f8gqhbpiUsUxEZGgMXo2 YEs2CMZecOvmOuHoKOQ1 ClD3DMG8bGAtaC4d uRlchsyanC7zYne+RmVt XOvuYU25RB40zIRbx7T3 gPV8E8YoRAPgsjnwdwkn oKF5JIRcDHChiI61 qJOwIVjwPe6hs4B6c965 SMSkDMHbfQ34Pi3lwNjm OVUjmDGPwN6ekgirj3wj cjogIzAwMDAwMDt0 VKk4QVEagPdgFmViTVR8 OsO1BNC7fMTbrW5idXvd ktmpmJ1eWdb+AZ2qslpi qjK7WL11DL99H2La PjwvdGFibGU+PHRhYmxl IHdpZHRoPScxMDAlJyBz mFaoUI9zSd5kHWSsGXKw pYpgdWYzPnHhv0ax GKEaRUgpTL6snOedY5Av hOG9XZHcm8f6Ia63K00y V1SxdJK+XJZgsVQ2aDW4 fO7oAdMhXkJ9SQgh X596BtVdpTRfCotvk1wn m9rezEp0WgCpTBJledXd lNncFUB1m9ZpCj47L95f IHdpZHRoPSIyMCUi VQDkeTqiqr6piO1hLd9+ KMPhmQB8cLA1cH7vVyBk BhO0GZdaV766JrBtgUHd XrtkX81gA3TdsFH+ UWPrEoy3CBRpaBnqMC5p fECoTNyqJz5hPOP7NtAd ZfUaIQevY0LsJIFniyas tuxyfYC7ZXNuNVPv wH69Fd3dmHecSv4hNCLt CXY2FXMscRCxF0ZenD4w DkWkGTRnYFGoK5TlbFAz TYkzV406NAavRuE1 HPNtzqUaQ2CgVNDanDys ZyI2l5C5Qa1SdThklJLp EN2sRtRvQEy6G8ExLku5 JRBfjItdTG3knUFg ZJvqEe2exHxylExhBV6z MWYtadaij937AeVis7sk BHQqiEOnQMqzHXP5L40f m1G1GFMmYNGaLOV0 zUZ6fC2mlLwtkcxkmUXv dDsgdmVydGljYWwtYWxp H265IIBmiSkoJkFIBdt5 U6KoTuy0IWZslVqi HZ2ypIKuOVkxCp5wbUph vFxvJU0jXCNgcbkyt186 ErTad3pfCFHpzUSgJXut LAV3C57wd1D8UKLc HBRdERM2iFA7zI1okRem bjogbGVmdDsgdmVydGlj LLbpVVsqV121YWZquYpt Ub1MYfn9T1CtQbt3 QLBugLzdHE6gdKJjVCxh Js4fwPndvBhzSP6gXOWe otehq764VmUej1tkSUJh wDEnEVujVYD0A98z n5N8UCKiUGEfUMM3jQK3 pT8osBfodkdtrAIbtXwt aaEqdVbxVNutWWsyR060 IHRvcDsnPlBheWVy OjwvdGQ+CV15xo90E5Rk JgpvTub7DIDzXAY4lDO0 zZ5dFLHbVYpan3Y6wFT8 J2CgtsPmrs3qu8sr YXBz (more content not included)... Normal [facility] Consent for Treatmenton Consent for Treatment [id number] 20 [id number] #[id number] [facility] ED Clinical Summaryon 2021 ED Clinical Summary [place] [id number] ED Clinical Summary Person Information Name: MARIBEL VELEZ/[facility] Age: 21 Years : 2000 Sex: Female Language: Rwandan PCP: NAIMA PEREZ MD Marital Status: Single [...] 10/19/2021 17:27:21 10/19/2021 17:27:21 10/19/2021 17:27:21 ADDRESS: [address] [id number] [facility] DOC NOTES: MEDICAL INFORMATION: Prescriptions Given: Medications to Continue with No Changes Other Medications ethinyl estradiol-norgestima te (Sprintec oral tablet) Ib By Mouth every day. ibuprofen (ibuprofen 600 mg Tab) 1 Tablets By Mouth every 6 hours as needed as needed for pain. PATIENT EDUCATION INFORMATION: Instructions: Viral Respiratory Infection, Jfuv-Nf-Cixg Follow up: With: Address: When: Salena ANTONIOMichelle Gilbert In 3 days 10/22/2021 DIAGNOSIS: 1:Viral respiratory illness; Other viral agents as the cause of diseases classified elsewhere Normal [facility] ED Patient Education Noteon 10-19-2021 ED Patient [...] home: Managing pain and congestion ? Take orgb-jpp-spddcea and prescription medicines only as told by [...] and water are not available, 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 ? Avoid contact with people who are [...] 05/13/2009 Document Revised: 06/08/2019 Document Reviewed: 07/11/2018 [employer] Patient Education ? 2020 [employer] Normal [facility] ED Patient Summaryon 022 ED Patient Summary [place] [id number] Patient Discharge Instructions Person Information Name: MARIBEL VELEZ Age: 21 Years Arrival Date: 10/19/2021 17:05:16 Discharge Diagnosis: 1:Viral respiratory illness; Other viral agents as the cause of diseases classified elsewhere Primary Care Physician: JOSE G VENCES, NAIMA Joseph Provider Information Primary Provider: Advanced Buggy Ladle Tender:None The exam and treatment you received in the Emergency Department were for an urgent problem and are not intended as complete care. It is important that you follow up with a doctor, nurse practitioner, or physician?s early childhood teacher assistant for ongoing care. If your symptoms [...] provider. Patient Education Materials: Viral Respiratory Infection, Pzyv-Eq-Dwbi A MESSAGE TO ALL PATIENTS REGARDING OPIOIDS PRESCRIPTION OPIOIDS: WHAT YOU NEED TO KNOW Prescription opioids can be used to help relieve reookkvl-dz-umrvbj pain and are often prescribed following a [...] be struggling with addiction, tell your health manager long term care and ask for guidance or call [facility]?S National Helpline at 9-961-256-JIGL. a Source: [facility] (more content not included)... Normal [facility] Influenza A&B Agon 2 Influenzae A Ag Negative Normal Negative [facility] Comment on above: Performed By: #### 1 [id number] ####[facility] [address] [place] [address] Influenzae B Ag Negative Normal Negative [facility] Comment on above: Result Comment: Test sensitivity and specificity vary for age group, specimen type, antigen types, and prevalence of disease. Test results must be evaluated in conjunction with other clinical data available to the physician. Individuals who received nasally administered Influenza A vaccine may have positive test results up to 3 days after vaccination. Performed By: #### 1 [id number] ####[facility] [address] [place] [address] MICRO OTHER TESTSOrdered By: Mya Reza on 10-19-2021 Influenzae A Ag Negative (10/19/21 5:05 PM) Normal Negative [facility] Man Sero Influenzae B Ag Negative (10/19/21 5:05 PM) Normal Negative [facility] Man [facility]ero Rapid COV Int NEG Ctl Pass (10/19/21 5:05 PM) Normal FT Man Sero Rapid COV Int POS Ctl Pass (10/19/21 5:05 PM) Normal FT Man Sero SARS-CoV+SARS-CoV-2 (COVID-19) Ag IA.rapid Ql (Resp) Not Detected (10/19/21 5:05 PM) Normal Not Detected [facility] Man Sero Rapid COVID Antigen (FT)on 10-19-2021 Rapid COV Int NEG Ctl Pass Normal [facility] Comment on above: Performed By: #### 2 [id number] ####[place] [address] [place] [address] Rapid COV Int POS Ctl Pass Normal [facility] Comment on above: Performed By: #### 2 [id number] ####[address] [address] SARS-CoV+SARS-CoV-2 (COVID-19) Ag IA.rapid Ql (Resp) Not detected Normal Not Detected [facility] Comment on above: Result Comment: The Stunn? System for Rapid Detection of SARS-CoV-2 is [...] or revoked sooner. Performed By: #### 2 [id number] ####[place] [address] ADMITTED TO INTENSIVE CARE UNIT FOR CONDITION OF INTEREST:FIND:PT: NO Normal [facility] Comment on above: Performed By: #### 2 [id number] ####[place] [address] EMPLOYED IN A HEALTHCARE SETTING:FIND:PT: NO Normal [facility] Comment on above: Performed By: #### 2 [id number] ####[place] [address] FIRST TEST FOR CONDITION OF INTEREST:FIND:PT: Unknown Normal [facility] Comment on above: Performed By: #### 2 [id number] ####[place] [address] HAS SYMPTOMS RELATED TO CONDITION OF INTEREST:FIND:PT: YES Normal [facility] Comment on above: Performed By: #### 2 [id number] ####[place] [address] HOSPITALIZED FOR CONDITION OF INTEREST:FIND:PT: NO Normal [facility] Comment on above: Performed By: #### 2 [id number] ####[facility] [address] [place] [address] STATUS:FIND:PT: NO Normal [facility] Comment on above: Performed By: #### 2 [id number] ####[facility] [place] [id number] RESIDES IN A CONGREGATE CARE SETTING:FIND:PT: NO Normal [facility] Comment on above: Performed By: #### 2 [id number] ####[facility] [address] [place] [address] US SINGLE QUAD RT UPPERon US SINGLE [...] by: SUGAR CAMARENA Date: 2021-09-19 11:51 Normal [facility] 08-05-2021 [facility] [place] [address] Nuclear Medicine Report Signed Patient: Maribel Velez MR#: [id number] : 2000 Acct:[id number] Age/Sex: 21 / F ADM Date: 08/05/21 Loc: [place] Room: Type: [facility] Attending Dr: Amy Tang DO Ordering Provider: [...] Amrit Cevallos M.D.08/05/2021 4:16 PM Dictation Location: [place] [address] Transcribed By: [facility] 08/05/211615 Dictated By: Amrit Cevallos DO 08/05/211610 Signed By: 08/05/211615 Normal [facility] HCG,Urineon 07-29-2021 Beta HCG ( test) Ql (U) Negative Normal [facility] Comment on above: Result Comment: PERF ORMED BY: [place] [address] PATHOLOGIST CONFIGURATOR EDDIE CORTÉS M.D. Performed By: #### U HCG #### [address] 07-29-2021 L Specimen: [id number] Received: 07/29/21 Status: AMMY Valdes Num: [id number] Spec Type: Surgical Subm Dr: Amy Tang Jr, DO Tissues: A Colon Biopsy (RANDOM BX) Procedures: HE Stain/2, Gross/Micro L4 Patient Age/Sex Location Account Attending Physician Maribel Velez [id number] Amy Tang Jr, DO SPEC NUM: [id number] RECD: 07/29/21 STATUS: AMMY FREEMANSander NUM: [id number] DIMITRI: 07/29/211054 [facility] DR: Amy Tang Jr, DO ENTERED: 07/29/[address] [facility] [address]: ELENA TYPE: Surgical DEPT: S [...] microscopic findings support the above pathologic diagnosis. [id number] Specimen: [id number] Received: 07/29/21 Status: ОЛЕГIlya Lucio Num: [id number] Spec Type: Surgical Subm Dr: Amy Tang Jr, DO Tissues: A Colon Biopsy (RANDOM BX) Procedures: HE Stain/2, Gross/Micro L4 Patient: Maribel Velez [id number] (Continued) Signed (signature on file) Eddie Cortés MD 07/30/21 0165 [facility] COVID-19 Antigenon 2 COVID-19 Antigen Healthcare [...] its performance Lucas Disclaimer characteristic determined by [employer] and Lucas Disclaimer validated at [facility]. This Lucas Disclaimer test has not been [...] is terminated or revoked sooner. PERFORMED BY: [place] [phone] PATHOLOGIST CONFIGURATOR EDDIE CORTÉS M.D. Normal [facility] Comment on above: Performed By: #### C OVID-19 LUCAS, SOFIANEG #### [facility] [address] [place] [address] Lucas Ag Negativeon 07-25-19 22 Lucas Ag Negative Negative Normal Negative [facility] Comment on above: Result Comment: This is a duplicate Lucas SARS Antigen (REINIER) result to be used for statistical tracking purpose only. PERFORMED BY: [place] [phone] PATHOLOGIST CONFIGURATOR EDDIE CORTÉS M.D. Performed By: #### C OVID-19 LUCAS, SOFIANEG #### [facility] [address] [place] [address] COVID-19 Antigenon 2 COVID-19 Antigen Healthcare Worker?: [...] its performance Lucas Disclaimer characteristic determined by [employer] and Lucas Disclaimer validated at [facility]. This Lucas Disclaimer test has not been [...] is terminated or revoked sooner. PERFORMED BY: [place] [phone] PATHOLOGIST CONFIGURATOR EDDIE CORTÉS M.D. [facility] Comment on above: Performed By: #### S OFJOSE ANGELEG, COVID-19 LUCAS #### [address] Lucas Ag Negativeon 07-16-19 22 Lucas Ag Negative Negative Normal Negative [facility] Comment on above: Result Comment: This is a duplicate Lucas SARS Antigen (REINIER) result to be used for statistical tracking purpose only. PERFORMED BY: [place] [address] PATHOLOGIST CONFIGURATOR EDDIE CORTÉS M.D. Performed By: #### C UU #### [address] #### VAGINITIS+ #### [facility] , Patient [...] meters squared number. To calculate BMI with Rwandan measurements: 1. Measure weight in lb. 2. [...] people from 2?20 years of age. Health daycare assistant use the charts to identify underweight and [...] 08/20/2004 Document Revised: 05/13/2018 Document Reviewed: 11/11/2016 [employer] Patient Education ? 2019 [employer]. [facility] Urinalysis - AUTOMATEDon Appearance (U) cloudy [email or web address] Other Bilirubin Ql (U) Negative [facility] Other Color (U) yellow [facility] Other Glucose Ql (U) Negative [employer] Other Hemoglobin Ql (U) Negative [employer] Other Ketones Ql (U) Negative [employer] Other Leukocyte esterase Test strip Ql (U) small [facility] Other Nitrite Ql (U) Negative [employer] Other pH (U) 8.5 [pH] [facility] Other Protein Ql (U) Negative [employer] Other Specific gravity (U) [Rel density] 1.025 [facility] Other Urobilinogen (U) [Mass/Vol] 1.0 mg/dL [facility] Other Urinalysis - AUTOMATED Bag of Ice [facility] [employer] Other Urine Cultureon 04-08-2021 Bacteria identified Cx Nom (U) Reason for Exam Vaginal discharge Urine 75,000 colonies/ml mixed bacterial skin contaminants 2 Days PERFORMED BY: [place] [address] PATHOLOGIST CONFIGURATOR EDDIE CORTÉS M.D. [facility] Comment on above: Performed By: #### C UU #### [facility] [address] [place] [address] #### VAGINITIS+ #### [facility] , Vaginitis Plus (VG+)on 04-08 Atopobium Vaginae Low - 0 Normal . [facility] Comment on above: Order Comment: Reaso n for Exam High risk bisexual behavior Performed By: #### C UU #### [facility] [address] [place] [address] #### VAGINITIS+ #### [facility] , BVAB2 Low - 0 Normal . [facility] Comment on above: Order Comment: Reaso n for Exam High risk bisexual behavior Performed By: #### C UU #### [facility] [address] [place] [address] [place] #### VAGINITIS+ #### [facility] , Makayla Albicans, YUNIOR Positive Critically abnormal Negative [facility] Comment on above: Order Comment: Reaso n for Exam High risk bisexual behavior Result Comment: This test was developed and its performance characteristics determined by [facility]. It has not been cleared or approved by the Food and Drug Administration. Performed By: #### C UU #### [facility] [address] [place] [address] [place] #### VAGINITIS+ #### [facility] , Makayla Glabrata, YUNIOR Negative Normal Negative [facility] Comment on above: Order Comment: Reaso n for Exam High risk bisexual behavior Result Comment: This test was developed and its performance characteristics determined by [facility]. It has not been cleared or approved by the Food and Drug Administration. PERFORMED BY: [place] [address] PATHOLOGIST CONFIGURATOR EDDIE CORTÉS M.D. Performed By: #### C UU #### [address] #### VAGINITIS+ #### [facility] , Chlamydia Trachomotis, YUNIOR Negative Normal Negative [facility] Comment on above: Order Comment: Reaso n for Exam High risk bisexual behavior Performed By: #### C UU #### [place] [address] [place] #### VAGINITIS+ #### [facility] , Megasphaera Low - 0 Normal . [facility] Comment on above: Order Comment: Reaso n [...] Administration. Performed By: #### C UU #### [facility] [address] [place] [address] [place] #### VAGINITIS+ #### [facility] , Neisseria Gonorrhoeae, YUNIOR Negative Normal Negative [facility] Comment on above: Order Comment: Reaso n for Exam High risk bisexual behavior Result Comment: Perf ormed at: =G - [facility] [address] [id number] [employer] St[employer]cher: Kim Anderson MD, Phone: [phone] Performed By: #### C UU #### [facility] [address] [place] [address] [place] #### VAGINITIS+ #### [facility] , Tric Vag YUNIOR Negative Normal Negative [facility] Comment on above: Order Comment: Reaso n for Exam High risk bisexual behavior Performed By: #### C UU #### [facility] [address] [place] [address] [place] #### VAGINITIS+ #### [facility] , XR [...] Josué Erickson MD 11/15/19 Final result Normal [facility] Normal right femur x-rays. [place], [place] RIGHT FEMUR X-RAYS, 11/15/2019. HISTORY: Right hip and leg pain. COMPARISON: None. FINDINGS: AP and lateral views of the right femur were obtained. Bone mineralization is normal. Alignment is normal. There is no fracture. No dislocation. No degenerative changes. [place], [place] Sam, M[facility] Incoming Radiant Results From [employer] - 11/15/2019 6:01 PM EDT RIGHT FEMUR X-RAYS, 11/15/2019. HISTORY: Right hip and leg pain. COMPARISON: None. FINDINGS: AP and lateral views of the right femur were obtained. Bone mineralization is normal. Alignment is normal. There is no fracture. No dislocation. No degenerative changes. IMPRESSION: Normal right femur x-rays. [place], [place] ED Provider Noteon 9 Protein mass conc B [facility] ED eMERGENCY dEPARTMENT eNCOUnter Pt Name: Maribel Velez Birthdate 2000 Date of evaluation: 08/10/2018 Provider: Marek Watts APRN - RENETTA I have evaluated this patient on my own, per my scope of practice with attending physician available for consultation CHIEF COMPLAINT Chief Complaint Patient presents with ? URI HISTORY OF PRESENT ILLNESS (Location/Symptom, Timing/Onset,Context /Setting, Quality, Duration, Modifying Factors, Severity) Note limiting factors. ADAN Velez is a 18 y.o. female who [...] the Claritin, Tessalon, increase fluids, rest. Take fbfc-iag-exufpye Tylenol or ibuprofen as if her pain. [...] Discharge 08/10/2018 10:34:25 AM PATIENT REFERRED TO: [facility] [address] [facility] [id number] Call As needed DISCHARGE MEDICATIONS: New [...] Provider KARMEN Urrutia CNP 08/10/18 1037 Normal [facility] Vital Signs Date Time Vital Sign Value Performing Clinician Facility 02-13-2022 07:25-0400 Diastolic blood pressure 98 mm[Hg] Kevin Santoro [employer] [facility] 02-13-2022 07:25-0400 Systolic blood pressure 153 mm[Hg] Kevin AlvaradoTigerspike [facility] 02-13-2022 06:20-0400 Body temperature 98.24 [degF] Kevin Santoro [employer] [facility] 02-13-2022 06:20-0400 Diastolic blood pressure 74 mm[Hg] Kevin AlvaradoTigerspike [facility] 02-13-2022 06:20-0400 Heart rate 75 /min [employer] [facility] 02-13-2022 06:20-0400 Respiratory rate 20 /min Kevin [employer] [facility] 02-13-2022 06:20-0400 SaO2% (BldA) [Mass fraction] 98 % [employer] [facility] 02-13-2022 06:20-0400 Systolic blood pressure 119 mm[Hg] Kevin Santoro [facility] 10-19-2021 17:09-0400 Body temperature 98.96 [degF] Miko Kaur [facility] 10-19-2021 17:09-0400 Diastolic blood pressure 84 mm[Hg] Miko Kaur [facility] 10-19-2021 17:09-0400 Heart rate 89 /min Miko Kaur [facility] 10-19-2021 17:09-0400 Respiratory rate 17 /min Miko Kaur [facility] 10-19-2021 17:09-0400 SaO2% (BldA) [Mass fraction] 100 % Miko Kaur [facility] 10-19-2021 17:09-0400 Systolic blood pressure 138 mm[Hg] Miko Kaur [facility] 09-17-2021 15:00-0400 Body weight 61.69 kg Amy Tang Other [facility] [employer] Other 06-25-2021 15:15-0500 Body weight 62.6 kg Amy Tang Other [facility] Other 04-08-2021 14:50-0400 Body height 163.83 cm Maribel Randall Other [facility] Other 04-08-2021 14:50-0400 Body mass index (BMI) [Ratio] 24.84 kg/m2 Maribel Randall Other [facility] Other 04-08-2021 14:50-0400 Body temperature 98.2 [degF] Maribel Randall Other [facility] Other 04-08-2021 14:50-0400 Body weight 66.68 kg Maribel Randall Other [facility] Other 04-08-2021 14:50-0400 Diastolic blood pressure 80 mm[Hg] Maribel Randall Other [facility] Other 04-08-2021 14:50-0400 Respiratory rate 18 /min Maribel Randall Other [facility] Other 04-08-2021 14:50-0400 SaO2% (BldA) [Mass fraction] 100 % Maribel Randall Other [facility] Other 04-08-2021 14:50-0400 Systolic blood pressure 131 mm[Hg] Maribel Randall Other [facility] Other Encounters Encounter Date Encounter Type Care Provider Facility Start: 08-12-2023 End: 08-12-2023 ambulatory AMBREEN DAN Not Available Start: 07-10-2022 End: 07-10-[address] AMRIT VEE Facility:[facility] Start: 06-17-2022 End: 06-17-[address] JAYSON FIORE Facility:[facility] Start: 03-02-2022 End: 03-02-2022 ambulatory Lucia Thorne Facility:[facility] Start: 03-02-2022 End: 03-02-2022 Departed Referred MD Lucia Thorne Work Phone: [facility] Start: 02-13-2022 End: 02-13-2022 Emergency department patient visit Kevin Santoro [facility] Start: 02-03-2022 End: 02-03-2022 Patient encounter procedure CAITIE MARSHALL [facility] Start: 01-15-2022 End: 01-16-[address] NAIMA PEREZ Facility:[facility] Start: 10-19-2021 End: 10-19-2021 Emergency department patient visit Miko Kaur [facility] Start: 09-19-2021 End: 09-20-[address] NAIMA PEREZ Facility:[facility] Start: 09-17-2021 End: 09-17-2021 ambulatory Amy Tang Other [facility] Other Start: 09-17-2021 Office outpatient visit 15 minutes Amy Tang [facility] Start: 08-05-2021 End: 08-05-2021 ambulatory Amy Tang Facility:[facility] Start: 08-01-2021 End: 08-01-2021 ambulatory Amy Alvarengakes Other [facility] Other Start: 08-01-2021 Telephone encounter Amy Alvarengakes [facility] Start: 07-29-2021 Telephone encounter Amy Tang [facility] Start: 07-29-2021 End: 07-29-2021 ambulatory Amy Alvarengakes [facility] [employer] Other Start: 07-25-2021 End: 07-25-2021 ambulatory Amy Alvarengakes Facility:[facility] Start: 07-16-2021 End: 07-16-2021 ambulatory Amy L Hykes Facility:[facility] Start: 06-25-2021 End: 06-25-2021 ambulatory Amy Hykes Other [facility] Other Start: 06-25-2021 Office outpatient visit 25 minutes Amy Hykes [facility] Start: 04-08-2021 End: 04-08-2021 ambulatory Maribel Randall Facility:[facility] Start: 04-08-2021 Office outpatient visit 15 minutes Maribel Randall [facility] Start: 11-15-2019 End: 11-18-2019 Patient encounter procedure MICHAEL SMALLS [facility] Start: 11-15-2019 End: 11-17-2019 Subsequent hospital visit by physician Pauline Munoz Rad 1 [facility] Radiology Comment on above: Injury of right knee , initial encounter Start: 11-15-2019 End: 11-18-2019 Patient encounter procedure MICHAEL SMALLS [facility] Start: 11-15-2019 End: 11-17-2019 Subsequent hospital visit by physician Naima Perez [facility] Start: 08-10-2018 Emergency department patient visit UNKNOWN PROVIDER [facility] Procedures Date Procedure Procedure Detail Performing Clinician Start: 01-24-2020 Arthroscopy of knee Miko Kaur Start: 11-15-2019 Radiologic examinati on femur minimum 2 views SERINA Start: 11-15-2019 Radiologic examinati on femur minimum 2 views Michael Smalls Other Phone: Plan of Treatment Date Care Activity Detail Author Start: 02-13-2020 Influenza vaccination Flu vaccine (Season Ended) [place] Start: 2018 Meningococcal (ACWY) vaccine (1 - 2-dose series) Meningococcal (ACWY) vaccine (1 - 2-dose series) [place] Start: 2018 Screening for Chlamydia trachomatis Chlamydia [place] Start: 2017 HIV screening HIV screen [place] Start: 2013 HPV vaccine (1 - 2-dose series) HPV vaccine (1 - 2-dose series) [place] Start: 2009 DTaP/Tdap/Td vaccine (1 - Tdap) DTaP/Tdap/Td vaccine (1 - Tdap) [place] Start: 2003 Hepatitis A vaccine (1 of 2 - 2-dose series) Hepatitis A vaccine (1 of 2 - 2-dose series) [place] Start: 2003 Measles,Mumps,Rubella (MMR) vaccine (1 of 2 - Standard series) Measles,Mumps,Rubella (MMR) vaccine (1 of 2 - Standard series) [place] Start: 2003 Varicella vaccine (1 of 2 - 2-dose childhood series) Varicella vaccine (1 of 2 - 2-dose childhood series) [place] Start: 2002 Polio vaccine (1 of 3 - 4-dose series) Polio vaccine (1 of 3 - 4-dose series) [place] Start: 2002 Hepatitis B vaccine (1 of 3 - 3-dose primary series) [place] Atopobium vaginae DN A [Presence] in Vaginal fluid by YUNIOR with probe detection [facility] Work Phone: Bacteria identified in Urine by Culture [facility] Bacterial vaginosis associated bacterium 2 DNA [Presence] in Vaginal fluid by YUNIOR with probe detection [facility] Work Phone: Megasphaera sp type 1 DNA [Presence] in Vaginal fluid by YUNIOR with probe detection [facility] Work Phone: Payers Date Payer Category Payer Self-pay [id number] 2018 Unknown [employer] xxxxxxxxxxx 2018-Present [phone] [address] [place] [address] xxxxxxxxxxx [id number] 2018 Unknown [id number] 2002 Unknown [id number] 2.16.840.1.198378.3.579.2 .593 2002 Unknown [id number] 2.16.840.1.814011.3.579.2 .593 2002 Unknown [id number] 2.16.840.1.514844.3.579.2 .593 2002 Unknown [id number] 2.16.840.1.705051.3.579.2 .593 1989 Unknown [id number] 2.16.840.1.772240.3.579.2 .174 1989 Unknown [id number] 2.16.840.1.062707.3.579.2 .174 1984 Unknown [id number] 2.16.840.1.310581.3.579.2 .668 1959 Medicaid [id number] Medicaid Private Health Insurance [facility] [id number] Unknown [id number] 2.16.840.1.406158.3.579.2 .531 Unknown [id number] 2.16.840.1.921681.3.579.2 .531 Unknown [id number] 2.16.840.1.238606.3.579.2 .531 Unknown [id number] 2.16.840.1.885777.3.579.2 .531 Unknown [id number] 2.16.840.1.869685.3.579.2 .531 Unknown [id number] 2.16.840.1.801281.3.579.2 .531 Social History Date Type Detail Facility Start: 08-10-2018 Tobacco smoking stat [facility] Never smoker [place] Start: 08-10-2018 Alcohol intake Current non-dr exploration driller of alcohol (finding) [place] Sex Assigned At Not on file [place] Sex Assigned At Female [facility] Other Tobacco smoking status No Smokin g Status Entered [facility] Start: 2002 Sex Assigned At Female F [facility] Functional Status Date Assessment Result Facility 02-13-2022 Functional Status N/A [facility] Clinical Notes 04-08-2021 to 02-13-2022 Note Date [...] should change or worsen. Diagnosis: Rectal bleeding [facility]09-02-2022 Hospital Discharge instructions Patient Education 02/13/2022 07:28:37 Rectal Bleeding, Gktj-qm-Pqvq Rectal Bleeding Rectal bleeding is when blood [...] 02/10/2012 Document Revised: 05/13/2018 Document Reviewed: 07/26/2016 [employer] Patient Education 2020 [employer]. 02/13/2022 07:28:37 Hemorrhoids, Dtux-mn-Isph Hemorrhoids Hemorrhoids are swollen veins that may [...] 3 times a day. General instructions Take vjxt-olh-yejllva and prescription medicines only as told by [...] 03/09/2009 Document Revised: 06/08/2019 Document Reviewed: 10/20/2018 [employer] Patient Education 2020 [employer]. Follow Up Care 02/13/2022 06:18:09 With:Yu GREENE Address: [facility] [address] [place] [address]- Business (1) When:02/16/2022 07:21:18 With:CAITIE MARSHALL Address:Unknown When:Within 3 Day(s) [facility]05-08-2022 Hospital Discharge instructions Patient Education 10/19/2021 17:18:27 Viral Respiratory Infection, Bxga-Py-Ztld Viral Respiratory Infection A viral respiratory infection [...] at home: Managing pain and congestion Take pzkc-ful-bcygcna and prescription medicines only as told by [...] and water are not available, 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 Avoid contact with people who are sick [...] 05/13/2009 Document Revised: 06/08/2019 Document Reviewed: 07/11/2018 [employer] Patient Education 2019 [employer]. Follow Up Care 10/19/2021 17:07:38 With:Michelle Mata Address:Unknown When:10/22/2021 [facility]04-06-2022 Evaluation note* Encounter Date Diagnosis Assessment Notes Treatment Notes Treatment Clinical Notes Sep, Rectal bleeding (ICD-10 - K62.5) PATIENT STATES THIS HAPPENS EVERY COUPLE OF MONTHS Sep, Abdominal pain (ICD-10 - R10.9) PATIENT DID HAVE THIS LAST NIGHT ON THE RIGHT SIDE UNDER HER RIBS PATIENT DOES CONTINUE ON THE MEDICATION WILL ORDER SOME TESTING 06 Apr, 2022 Diarrhea (ICD-10 - R19.7) [facility] [employer] Other 02-15-2022 Evaluation note* Encounter Date Diagnosis Assessment Notes Treatment Notes Treatment Clinical Notes Jul, Blood in stool (ICD-10 - K92.1) Jul, Abdominal pain (ICD-10 - R10.9) [facility] [employer] Other 01-12-2022 Evaluation note* Encounter Date Diagnosis Assessment Notes Treatment Notes Treatment Clinical Notes Jun, Diarrhea (ICD-10 - R19.7) Jun, Rectal bleeding (ICD-10 - K62.5) PATIENT ENCOURAGED TO HAVE A COLONOSCOPY START ABOVE MEDICATION Jun, Abdominal pain (ICD-10 - R10.9) [facility] [employer] Other 10-26-2021 Evaluation note* Encounter Date Diagnosis [...] up to a week to get back. [facility] [employer] Other Evaluation + Plan note No data available for this section [facility] noteNo InformationNortH[facility] [employer] Other Evaluation noteNo assessment information available [facility] Work Phone: [employer] [facility] Narrative - Reported* Type Description Date Medical History IBS Medical History Constipation Medical History allergies Surgical History right torn lateral meniscus [facility] [employer] Other Hospital Discharge instructions No data available for this section [facility] No data available for this section [facility] Summary Purpose Family History No Family History Records Found Relationship Condition Age at Onset Recorded Date/T patrice grandparent Cardiovascular disease Unknown grandparent Malignant neoplasm of thyroid gland Unkno wn Not Specified Malignant neoplasm of ovary Unknown father Asthma Unknown brother Asthma Unknown Advance Directives No Advanced Directives Records FoundDocuments on File Type Date Recorded 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 Makeup Instructor Expl anation Advance Directives and Living Will Power of Residential Property Consultant Advance Directive Response Recorded Date/ Time Advance Directives No April 16, 2021 2:28pm Assessments Diagnosis Injury of right knee, initial encounter Chief Complaint and Reason for Visit Chief Complaint Dysuria Vaginal odor Additional Source Comments INFORMATION SOURCE (unrecogn ized section and content) DATE CREATED AUTHOR 08/20/2018 [facility] DATE CREATED AUTHOR AUTHOR'S ORGANIZ ATION 11/18/2019 [facility] DATE CREATED AUTHOR AUTHOR'S ORGANIZ ATION 02/17/2022 Nicole Ricardo [facility] DATE CREATED AUTHOR AUTHOR'S ORGANIZ ATION 03/14/2022 [facility] DATE CREATED AUTHOR AUTHOR'S ORGANIZ ATION 07/13/2022 [facility] DATE CREATED AUTHOR AUTHOR'S ORGANIZ ATION 08/15/2023 [facility] Specialists EPIC REASON FOR [...] BE BASED ON THE PRIMARY CLINICAL RECORDS. [email or web address] [facility]. provides no warranty or guarantee of the accuracy or completeness of information in this document.
== END 2023-12-31 10:06 | disposition home or self-care (01) ==
LOC: NOMS 10:05
PROVIDERS: Visit Provider Obstetrics & Gynecology
DX: Z34.91 Encounter for supervision of normal pregnancy, unspecified, first trimester (principal); Z3A.09 9 weeks gestation of pregnancy; N92.6 Irregular menstruation, unspecified
CPT/HCPCS: 76817

== ENCOUNTER 2024-01-06 14:14 | Outpatient (OUT) | payer MEDICAID, SELFPAY ==
--- OUTSIDE RECORDS SUMMARY | 2024-01-06 14:33 | XMS_ITS | CCD ---
Author Organization [facility] Care Team Providers Care Biazzi Nitrator Operator Name Role Phone PROVIDER, UNKNOWN Attending Unavailable PROVIDER, UNKNOWN Referring Unavailable Balbina, PCP Primary Care Unavailable Naima Perez Primary Care Provider UnavailMICHAEL Staley Referring Unavailab NAIMA Asif Primary Care Unavailable MICHAEL SMALLS Referring Unavailab NAIMA Asif Primary Care Unavailable NAIMA PEREZ Primary Care Physician [phone] Maribel Randall Unavailable Amy Tang Unavailable CAITIE MARSHALL Primary Care Physician [phone] CAITIE MARSHALL Primary Care Physician [phone] MD Lucia Thorne Attending Provider [phone] Lucia Thorne Admitting Unavailable Lucia Thorne Attending Unavailable NON STAFF Primary Care Unavailable Amy Tang Attending Unavailable Amy Tang Admitting Unavailable Naima Perez Primary Care Unavailable Amy Tang Attending Unavailable Naima Perez Primary Care Unavailable Amy Tang Admitting Unavailable Maribel Randall Admitting Unavailable Maribel Randall Attending Unavailable [facility] Primary Care Unavaila ble Amy Tang [...] media; 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: [red dye] Drug allergy 01-23-2017 Zuber[facility] Other Medications Current Medications Medication Drug Class(es) [...] for 7 day(s), 15 gm, Refill(s) 0, [facility]/pharmacy #[id number], 162, cm, 02/13/22 6:24:00 EDT, [...] Onset: 06-17-2022 Episodic Other aftercare (1 source) [facility] (current) use of hormonal contraceptives; 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: [CUSTODIAL HORMONAL CONTRACEPTIVES] Onset: 06-18-2022 Episodic Other circulatory [...] S F Tetracycline >=16 R F Normal [facility] Comment on above: Performed By: #### U RCX #### [facility] [address] [place] [address] Dr. Venancio Soriano ER URINE PROFILEon 3 Bilirubin Ql (U) Negative Normal NEGATIVE [facility] Comment on above: Performed By: #### U MICRO, PREGU, ERUR #### [facility] [address] [address] [address] Venancio Soriano Clarity (U) CLEAR Normal CLEAR [facility] Comment on above: Performed By: #### U MICRO, PREGU, ERUR #### [facility] [address] [place] [address] Dr. Venancio Soriano Color (U) LT. YELLOW Normal YELLOW [facility] Comment on above: Performed By: #### U MICRO, PREGU, ERUR #### [facility] [address] [place] [address] Dr. Venancio FREEMAN A micrscopic examination will be performed if indicated. Normal [facility] Comment on above: Performed By: #### U MICRO, PREGU, ERUR #### [facility] [address] [place] [address] Dr. Venancio Soriano Glucose Ql (U) Negative Normal NEGATIVE [facility] Comment on above: Performed By: #### U MICRO, PREGU, ERUR #### [facility] [address] [address] [address] Venancio Soriano Hemoglobin Ql (U) TRACE-INTACT Abnormal NEGATIVE [facility] Comment on above: Performed By: #### U MICRO, PREGU, ERUR #### [facility] [address] [address] [address] Venancio Soriano Ketones Ql (U) Negative Normal NEGATIVE [facility] Comment on above: Performed By: #### U MICRO, PREGU, ERUR #### [facility] [address] [place] [address] Dr. Venancio Soriano LEUKOCYTES SMALL Abnormal NEGATIVE [facility] Comment on above: Performed By: #### U MICRO, PREGU, ERUR #### [facility] [address] [address] [address] Venancio Soriano Nitrite Ql (U) Negative Normal NEGATIVE [facility] Comment on above: Performed By: #### U MICRO, PREGU, ERUR #### [facility] [address] [address] [address] Venancio Soriano pH (U) 6.0 [pH] Normal 5-[address] [facility] Comment on above: Performed By: #### U MICRO, PREGU, ERUR #### [facility] [address] [address] [address] Venancio Soriano SPEC GRAVITY 1.025 Normal 1.005-<=1.02 5 [facility] Comment on above: Performed By: #### U MICRO, PREGU, ERUR #### [facility] [address] [place] [address] Dr. Venancio Soriano UA PROTEIN Negative Normal NEGATIVE/ TRACE [facility] Comment on above: Performed By: #### U MICRO, PREGU, ERUR #### [facility] [address] [address] [address] Venancio Soriano UR MICRO IND INDICATED Normal [facility] Comment on above: Performed By: #### U MICRO, PREGU, ERUR #### [facility] [address] [address] [address] Venancio Soriano Urobilinogen Qn (U) 0.2 {Erick'U}/dL Normal 0.2 - 1. 0 [facility] Comment on above: Performed By: #### U MICRO, PREGU, ERUR #### [facility] [address] [place] [address] Dr. Venancio Soriano URon 07-10-2022 , QUAL Negative Normal NEGATIVE [facility] Comment on above: Performed By: #### U MICRO, PREGU, ERUR #### [facility] [address] [place] [address] Dr. Venancio Soriano URINE MICROSCOPIC ONLYon BACTERIA TRACE Abnormal NONE SEEN [facility] Comment on above: Performed By: #### U MICRO, PREGU, ERUR #### [facility] [address] [address] [address] Venancio Soriano Bacteria identified Cx Nom (U) INDICATED Normal [facility] Comment on above: Performed By: #### U MICRO, PREGU, ERUR #### [facility] [address] [address] [address] Venancio Soriano CAST NONE SEEN Normal NONE SEEN [facility] Comment on above: Performed By: #### U MICRO, PREGU, ERUR #### [facility] [address] [address] [address] Venancio Soriano Crystals LM Nom (Urine sed) NONE SEEN Normal NONE SEEN [facility] Comment on above: Performed By: #### U MICRO, PREGU, ERUR #### [facility] [address] [place] [address] Dr. Venancio Soriano Epithelial cells LM Ql (Urine sed) RARE Normal NONE SEEN /RARE [facility] Comment on above: Performed By: #### U MICRO, PREGU, ERUR #### [facility] [address] [place] [address] Dr. Venancio Soriano MUCOUS NONE SEEN Normal NONE SEEN [facility] Comment on above: Performed By: #### U MICRO, PREGU, ERUR #### [facility] [address] [place] [address] Dr. Venancio Soriano RBC 0-2 Normal 0-[address] [facility] Comment on above: Performed By: #### U MICRO, PREGU, ERUR #### [facility] [address] [place] [address] Dr. Venancio Soriano WBC 5-10 Abnormal NONE SEEN [facility] Comment on above: Performed By: #### U MICRO, PREGU, ERUR #### [facility] [address] [place] [address] Dr. Venancio Soriano Urine Cultureon 03-02-2022 Bacteria identified Cx Nom (U) Reason for Exam Dysuria Urine No Growth 2 Days PERFORMED BY: [address] [place] [id number] PATHOLOGIST QUALITY ASSURANCE COACH EDDIE CROTÉS M.D. Normal [facility] Comment on above: Performed By: #### V AGINITIS+ #### [facility] , #### CUU #### [facility] [address] [place] [address] Vaginitis Plus (VG+)on 03-02 Atopobium Vaginae Moderate - 1 Normal . [facility] Comment on above: Order Comment: Reaso n for Exam Vaginal odor Performed By: #### V AGINITIS+ #### [facility] , #### CUU #### [place] [address] [place] BVAB2 Low - 0 Normal . [facility] Comment on above: Order Comment: Reaso n for Exam Vaginal odor Performed By: #### V AGINITIS+ #### [facility] , #### CUU #### [address] Makayla Albicans, YUNIOR Negative Normal Negative [facility] Comment on above: Order Comment: Reaso n for Exam Vaginal odor Result Comment: This test was developed and its performance characteristics determined by [facility]. It has not been cleared or approved by the Food and Drug Administration. Performed By: #### V AGINITIS+ #### [facility] , #### CUU #### [facility] [address] [place] [address] Makayla Glabrata, YUNIOR Negative Normal Negative [facility] Comment on above: Order Comment: Reaso n for Exam Vaginal odor Result Comment: This test was developed and its performance characteristics determined by [facility]. It has not been cleared or approved by the Food and Drug Administration. PERFORMED BY: [place] [address] PATHOLOGIST QUALITY ASSURANCE COACH EDDIE CORTÉS M.D. Performed By: #### V AGINITIS+ #### [facility] , #### CUU #### [address] [place] [address] [place] Chlamydia Trachomotis, YUNIOR Negative Normal Negative [facility] Comment on above: Order Comment: Reaso n for Exam Vaginal odor Performed By: #### V AGINITIS+ #### [facility] , #### CUU #### [address] Megasphaera Low - 0 Normal . [facility] Comment on above: Order Comment: Reaso n [...] developed and its performance characteristics determined by [facility]. It has not been cleared or approved by the Food and Drug Administration. Performed By: #### V AGINITIS+ #### [facility] , #### CUU #### [address] Neisseria Gonorrhoeae, YUNIOR Negative Normal Negative [facility] Comment on above: Order Comment: Reaso n for Exam Vaginal odor Result Comment: Perf ormed at: = - [facility] [address] [id number] Traffic Officer: Kim Anderson MD, Phone: [phone] Performed By: #### V AGINITIS+ #### [facility] , #### CUU #### [facility] [address] [place] [address] Tric Vag YUNIOR Negative Normal Negative [facility] Comment on above: Order Comment: Reaso n for Exam Vaginal odor Performed By: #### V AGINITIS+ #### [facility] , #### CUU #### [address] Coding Summary.on 02-17-2022 Coding Summary. [id number] Gh0bWw+PGhlYWQ+PE1FV LJoC46rpPInbZ9FY6bKS G4IFRLYZAAJCJ7TKD2bq CP5DOpqW2IvhrBv JluatMIvPO87NLz5TCQ7 hLvvAUbywG0wqCJsH5x7 AxWeKC37bU85KGweVUCr DaD8CcBidmripVYy U5euIyTveRVxSkz+PHRh YmxlIHdpZHRoPScxMDAl MaEcjUagRM5uQt4uKARc LWNvbGxhcHNlOiBj i7euXFEhWHwdHX4obVtq S1OjmYP1JWLut2s2Iq35 dHI+DPOeOCI1dZjzMCiw b730LiLjp6whWUJ7 dSKjXDnoRVL3G72vb9G5 LNZpAUApMTS9fWI5vZ7d pFwewsnrU6MdxNLuCxB7 DOT4oHLjlB8jiBuz wjrgiW4zFlp+M25TZN3D CPCTZF3NMlx0F0YlJpmy dHI+IK69BDMnFL54iNFu rYWqa5cjtAv4LgKc QLUiLET5lYhiDAnzx2Ls ONVrF00pqMWxb8T4TIBi mZydaBObKvWinVU2pP7u HHyggyzol8vxlszg Mrmnq4wjqb88uQ38B47s QWojKNIjANP9QQLwFZRg mYimqc0fwJ3bAx0+IDxj n2kou6adeWf6OmMv MSJkstEsnZgoRAM0p1Ce Pm51X4ExoGrkk7NbWfb4 cw74dVHgb8U9rOE3IMnl FQBozB3kYKlcLuH4 POQuSlXhyU40iQTgNOhj Wu3xrNyooLsgOO8aIPAq mzliULZduJ3mAEIwmPWm kShlGM4nYJBgnrjj w586EkScPOO8YPFzaTXt A7SnpD9oWcRmKJIlQUJr Q0FcoUXnPRyvD647OCjl UuU7RVBcorLaB0Xa RWIyyDysLwZ3t3D3Sy2L u3XpbtbsJFJ7AQdcLWV8 RhO0UzDsNtM3G9XtJyk2 PDPthDzuZZ0sS6Db ZENhvlzjgmqenLQ5JOSn TBDlcB31nIVnFQbiWx0c f5X4i316KUIgBDLwzY08 Er6wtGvsKIPenGON hL1bafvoh5cilmitWhCx YKCvHQg5EHb9WBYagWtz TkNnIGJ9RgL1GXL0aPKm sG4wiSftsamxzD8v Oyc+D59ieG1vRVR6BSQ1 dlgqNLXlujXyCF36TT87 K1DnEqamuTSriLS+PGRp czZpjKqhAN4pFyGm u3odd7RlNOlrL6PaAKZd HNynVrj4JGNpIKQ5rTZ8 bI6bHFVrAEpry7B4hFM9 G5EqkiCteq6oh4os LRFsRUanS94lcFBuo8D9 FVJotUQ8DUOhaIjqXsVo hM00Hgx+ASSngJoyo7Aj Bhcwx1ppc6jztCq2 IjMwJSIgdmFsaWduPSJ0 c2GrGs10W51vDGzwWRTv QYSoHHAyHLGikMviqq3e kK0zUm2+PGNvbCB3 jMI6uK4eDBHgCpX8FDlo V748AwKsxTQoHpbjf4kw l0ajsTz3CeBwOZSbulGw sJnpMIR9w4QeGl71 A21hUIbkZMQuOEOtTQXh CRNhwIuoxs1quT4cHd7+ BQ2wp5iapk70pL66kXB+ KEBnIRD6bGgqEVna LAUftA9wJUdtGqA2OVIt EhBxcN77iCCvBYxrUm7e jXffrZmlYD5fCEOfilsd r444ArDlb5njITOz yZCyXVrdGUD9I57we4N5 IWRcPBNgUQA9gFJ3hB4n bGlnbjogbGVmdDsgdmVy kWeaKRidVTbfI745 IHRvcDsnPlBhdGllbnQg MlOvACm1R3HpAbi1ZNEg fRztRG5amBQkVXmaHn0n nKuckTefGU1uJAAg ryupw204XlUla7jqGLCk qSTaDQeuXVL7R10ro9U8 FQYvSIZdDDB9aNQ2jD2a bGlnbjogbGVmdDsg maOvdYvhLZzzVAybG348 IHRvcDsnPkJpcnRoIERh wLI8BZ75ZQ89gNNwn3B6 gAV5Z9BbPCVpjrud uhltaPC4YPXdGERnlI51 Iu2uiMddOw9vGHYfRLN5 XWUnzNCuB8PbnS6uDvDa PFZlPEWgT1VqfSFt VHreU666ZKsvSnV0NMOv ehEpZ6CvFHMqmNflHlT2 w9O7Oa5NJ4Y9GD32QS85 zHZyv6U4aFV6X8Bl WILerpasfjwhtZW0GQPn PZNibP78Fs7jwLsiFs5t PJUxFVK7FOBqbASvA0Tx aM7tGpBdBYTzFIQx O4DcvQElNTjaL774SHvg XsL8WUMbelKeL5OvMJMy iHguSuE1q0O5Ni3HCOz6 XP64FK10lABha4S9 lRZ1D9DjMMEpuurcdcgy aAS6JWLhPQRttR54Ih0x zRaeNk0sYLVqBME6CQNr sYMbV3GqtZ2nZzKb ZZFjMHNgX8YkqZOuFRch M115KLgdQcI7ZWGadrTu M9ZaHOIzoOzrHaA1f2A6 Qn8LLGLjRJ31YQU5 qOY1KW08YX97K2LrArip dGFibGU+PHRhYmxlIHdp ZHRoPScxMDAlJyBzdHls EJ7wYj1qULVsXTBp aVcqjMNuUpCgc9fxTJWv PZbfQA6mvJdqN1CcmCH3 XLGwk9k4Fe72S82yO1Vn dXA+GZDubTN8sKI8 cS3kUkRmHwJ6SPibG528 FzKzoAXiFagci2oyf2vf pBs3DqE4MIYsvwPhfQva AAE7y3BpGq07S30z IHdpZHRoPSIxNSUiIHZh fGbopo2rjP1iMs1+PGNv nHT7mIX0yX3nGxEzDvH6 LMteQ972MkGyhXCt Qpgyr6axx9cgbEd4ZeUr IVAvblHhkWsuODR3h8Tm Nq45L3IwcNmsz5EtYif9 ml67tTSaq8L0tKK7 V6CgTGRyouvcvSImnSfv CP8lBFIvffgsNNTsjO9c CCPeJ2o3VgHtEjI6ZGpo U8AvopH4JPDqfFRm NIxcABE1A05wu2R5RVTf BBAjVSI8vMV3aA9mqJgr bjogbGVmdDsgdmVydGlj FUmfXIgzL964TWHz mFdoUMUtnK1hQJFqbUKh kDzjNI5jEIGzzutxByFI EKiJJJxiV8GYFMpKWjrS DO72FQ11bEPmi6Y8 qBJ0M5AxYWKblfesldpw kDG2EXUlGOSccS86wJEm QGvsTr3fe5N3j322AEAe OGSioF34Wd8azBdk URRyrRZGlE3pykjni1wz ozujDfQvYRMgMWu1HDn6 SIEbmPyiLaKpUSK4AsN9 GQE5ePAlvF6ozUyp jgdbzQ1pQkc+MDIvMTkv MjAwMzwvdGQ+PHRkIHN0 oMvmJTgtGOSeqV7vWGHt L0j5AiSvKeO4WYck Q5ZeWKJhzaafYw72eY1k StFnVkW4JTtzN0BydgW8 KZRgtWMlAFapJYP6W02a i2U5MVGbIFQbSYJ1 fJI9lR6irYjvnzfcmEHy dDsgdmVydGljYWwtYWxp S671OBRrfInyKsE8MDry QLKdGA88VI92jXDf t7N2xAQ0L0OiCPBhpwvx kreeoAE8UEZbDKLdqU63 tTChAPzbUd6lf9B0k350 OQUfLYDoiP84Kk1g mXbgPRVjgMNTiW8yomqg r1lruqasSsVvDAFlJJv3 VCl4ITIvbJihOyOoWWR3 OtC4RSP3cATtdZ9s fWaiyuqdbT1qQxg+RmVt PDpzAB72AP84gHOrs0E8 pAC7W7SbITCakdgxcrwk cMI2YLYmWBNecR94 kRRsGUetNc2bu0M7q533 WAOfJWJsvX76Ar7lxHod MGMsvVBZhO1whwymh6qp cjogIzAwMDAwMDt0 BYu9JRLydFsgGkYhFEX1 SmJ5PBK2qWRptV1xfGbt ajcbbV7zTvx+FZ2zxksq keP2ZE94VR21W1Sf PjwvdGFibGU+PHRhYmxl IHdpZHRoPScxMDAlJyBz fZybNU5eNa5uFPNaQWPt nOywjCPdXfWsp3en OEEwXIlnIO7eaQstB3Lv aYB3TVBlo8v6Qi21R81d V3GbrEU+TJIehCC2bAU3 hD6kBjViQwF5RGhl L520MwAsjQKkSietq7af d0sgzBu4KyAdVOGvufYb aWmmFMU6w0AsGv84A95t IHdpZHRoPSIyMCUi NGEcsGqbic7olE8zIg9+ TDNbvOO1zDJ2kD6yAsWl OyK3TZtbM181SaReaBCr EcxwI41xL8AgrYL+ FKTiYla2CMSisEcxUR2d kVDfFFakIj8uZAR1BuHf DvQoOZxvP6ZiHFZrcpev sfigjTB7ZERuOSXu jX57Sl7ugEmpUh2rYWCv YNF0VNCilIUpI0RxlB3r IsSdCJImSRHwM1GlnLSk WFiyC107GMocLkE4 ROTmscUcH9RmYDSeuUxg YtM3u1V0Mn6NyPjftJHm FI5oHhPqICg4B1WiPde8 VQLyiLadLR7ehKXa AGprKu1lqNxriGkjMC3p FEBlegcik200XpXbk5up TBOhbNGfRZxeETE1Y06n p6F0ARDxBKDfONA2 fVO4uU5mlOpvowqfaMLc dDsgdmVydGljYWwtYWxp Y438KPHrsZpiZmJQNrq4 P9GbIen0GDXokBul AK6rtOUhOYsiKs3hoQkv iCgxBB4tMPAvkjlvi364 XxLcf4khLCZmtODgGJnn GOP6W67px1B8AXPm RHXlEID1cDL8xQ6nzWnk bjogbGVmdDsgdmVydGlj QFlnDFntA940ILNtzWjf Ez0BAvt1Y3GiMpm3 ZKZbiIgaNX3uzFPdGCgz Nm6ysSeitDolBZ6gNXGn iysas029AmEqo7tlWQJb mFIwJNymMVK9B61m b4N7YOWjBXHgPCS8zRD3 xV9dtHpmrocufYGvqWse nlJxcLjhJVeuBXquL760 IHRvcDsnPlBheWVy OjwvdGQ+CI28gh41B0Kc SjuyZzq8QZWrXYI0rNR0 rN1cNVFbPJsoj6P7wAF7 G2TspjCuar5kq1rf YXBz (more content not included)... Normal [facility] Auto Diffon 02-13-2022 Basophils/100 WBC (Bld) 0.9 % Normal 0.0-2.0 [facility] Comment on above: Order Comment: Order Added by Discern Expert. Performed By: #### 2 165472, 9348820, [id number], 7777676, [id number] ####[address] [address] Basophils/Leukocytes Auto (Bld) [Pure # fraction] 0.1 E9/L Normal 0.0-0.2 [facility] Comment on above: Order Comment: Order Added by Discern Expert. Performed By: #### 2 400367, 0944755, 36854375, 4637485, [id number] ####[address] [address] Eosinophils/100 WBC (Bld) 0.6 % Normal 0.0-8.0 [facility] Comment on above: Order Comment: Order Added by Discern Expert. Performed By: #### 2 559036, 4733004, 41359120, 1244051, [id number] ####[address] [address] Eosinophils/Leukocyte s Auto (Bld) [Pure # fraction] 0.0 E9/L Normal 0.0-0.5 [facility] Comment on above: Order Comment: Order Added by Discern Expert. Performed By: #### 2 372532, 4996126, 13221304, 3476490, [id number] ####[address] [place] [address] Lymphocytes/100 WBC (Bld) 46.4 % Normal 14.0-50.0 [facility] Comment on above: Order Comment: Order Added by Discern Expert. Performed By: #### 2 514661, 3882257, 61837953, 6375903, 84550070 ####[facility] [address] [place] [address] Lymphocytes/Leukocyte s Auto (Bld) [Pure # fraction] 3.1 E9/L Normal 1.0-4.0 [facility] Comment on above: Order Comment: Order Added by Madeleine Expert. Performed By: #### 2 623336, 0554950, 84296589, 1229833, 69697842 ####[address] [address] Monocytes/100 WBC (Bld) 8.2 % Normal 4.0-14.0 [facility] Comment on above: Order Comment: Order Added by Madeleine Expert. Performed By: #### 2 788524, 3677302, 27796977, 9717947, 92269753 ####[address] [address] Monocytes/Leukocytes Auto (Bld) [Pure # fraction] 0.6 E9/L Normal 0.2-1.0 [facility] Comment on above: Order Comment: Order Added by Madeleine Expert. Performed By: #### 2 468449, 7970353, 45459617, 2681210, 99807754 ####[address] [address] Neutrophils/100 WBC (Bld) 43.9 % Normal 36.0-75.0 [facility] Comment on above: Order Comment: Order Added by Madeleine Expert. Performed By: #### 2 916119, 1455347, 59742236, 2616260, 42878095 ####[address] [place] [address] Neutrophils/Leukocyte s Auto (Bld) [Pure # fraction] 3.0 E9/L Normal 2.0-7.5 [facility] Comment on above: Order Comment: Order Added by Madelenie Expert. Performed By: #### 2 145437, 9054327, 33370244, 3927750, 87274064 ####[address] [address] BB Draw & Holdon 02-13-2022 BB D&H Sample drawn for Blood Ba Normal [facility] Comment on above: Performed By: #### 2 119099, 6692477, 61742904, 3569080, [id number] ####[address] [place] [address] CBC w/ Auto Diffon Erythrocyte distribution width (RBC) [Ratio] 13.3 % Normal 10.9-14.2 [facility] Comment on above: Performed By: #### 2 311507, 2927813, 69889340, 7236360, 35924135 ####[address] [address] Hematocrit (Bld) [Volume fraction] 34.1 % Normal 34.0-46.0 [facility] Comment on above: Performed By: #### 2 011441, 9138716, 80659806, 8467695, 18977181 ####[address] [address] Hemoglobin (Bld) [Mass/Vol] 11.7 g/dL Low 12.0-16.0 [facility] Comment on above: Performed By: #### 2 721779, 4182001, 85941634, 4596981, 83706956 ####[address] [address] MCH (RBC) [Entitic mass] 29.9 pg Normal 27.0-34.0 [facility] Comment on above: Performed By: #### 2 917635, 3196575, 39512933, 3253185, 60951178 ####[address] [address] MCHC (RBC) [Mass/Vol] 34.4 g/dL Normal 31.4-36.0 [facility] Comment on above: Performed By: #### 2 132490, 0904257, 85594465, 3441912, 50058697 ####[address] [place] [address] MCV (RBC) [Entitic vol] 86.8 fL Normal 80.0-100.0 [facility] Comment on above: Performed By: #### 2 048292, 5359561, 17642636, 2429048, 15196828 ####[address] [address] Platelet mean volume (Bld) [Entitic vol] 7.9 fL Normal 6.4-10.8 [facility] Comment on above: Performed By: #### 2 822905, 1636498, 46663153, 8624429, 19612142 ####[address] [address] Platelets (Bld) [#/Vol] 329.0 E9/L Normal 150.0-500.0 [facility] Comment on above: Performed By: #### 2 132752, 7488643, 66912333, 0125295, 95349841 ####[address] [address] RBC (Bld) [#/Vol] 3.9 E12/L Low 4.3-5.9 [facility] Comment on above: Performed By: #### 2 005199, 3698211, 74931282, 5410615, 65652951 ####[address] [address] WBC corrected for nucl RBC Auto (Bld) [#/Vol] 6.7 E9/L Normal 4.0-11.0 [facility] Comment on above: Performed By: #### 2 [id number], 7167944, [id number], [id number], [id number] ####[address] [address] CHEMISTRYOrdered By: SYSTEM SYSTEM on 02-13-2022 Albumin [Mass/Vol] 4.3 g/dL Normal 3.3 - 5.0 gm/dL [facility] Remisol Albumin/Globulin [Mass ratio] 1.3 {ratio} Normal [...] rate/Area] mL/min/1.73 m2 Normal >=59mL/min/1 .73 m2 [facility] Chem S GFR/1.73 sq M.predicted among non-blacks MDRD (S/P/Bld) [Vol rate/Area] mL/min/1.73 m2 Normal >=59mL/min/1 .73 m2 [facility] Chem S Globulin (S) [Mass/Vol] 3.2 g/dL [...] 14 mg/dL Normal 5 - 21 mg/dL [facility] Remisol Urea nitrogen/Creatinine [Mass ratio] 35 mg/mg High 10 - 20 [facility] Remisol CMPon 02-13-2022 Albumin [Mass/Vol] 4.3 g/dL Normal 3.3-5.0 [facility] Comment on above: Performed By: #### 2 [id number], 2839115, 16329241, 2428815, [id number] ####[facility] [address] [place] [address] Albumin/Globulin (S) [Mass conc ratio] 1.3 Normal 1.1-2.2 [facility] Comment on above: Performed By: #### 2 835887, 4881190, 54107594, 0335050, [id number] ####[facility] [address] [place] [address] ALP [Catalytic activity/Vol] 55 Int._Unit/L Normal 21-98 [facility] Comment on above: Performed By: #### 2 215148, 9593922, 06215675, 8432631, [id number] ####[facility] [address] [place] [address] ALT No additional P-5'-P [Catalytic activity/Vol] 12 Int._Unit/L Normal 6-46 [facility] Comment on above: Performed By: #### 2 820044, 2466047, 27603520, 0659419, [id number] ####[facility] [address] [place] [address] AST [Catalytic activity/Vol] 15 Int._Unit/L Normal 5-43 [facility] Comment on above: Performed By: #### 2 069835, 6452461, 22055193, 4995154, [id number] ####[facility] [address] [place] [address] Bilirubin [Mass/Vol] 0.4 mg/dL Normal 0.0-1.1 [facility] Comment on above: Performed By: #### 2 620093, 1830381, 02591243, 8557565, [id number] ####[facility] [address] [place] [address] Creatinine [Mass/Vol] 0.4 mg/dL Low 0.5-1.3 [facility] Comment on above: Performed By: #### 2 953515, 7976568, 72993669, 7823600, 80021551 ####[facility] [address] [place] [address] Globulin (S) [Mass/Vol] 3.2 g/dL Normal 1.4-4.0 [facility] Comment on above: Performed By: #### 2 246317, 4905663, 14683492, 8888888, [id number] ####[facility] [address] [place] [address] Protein [Mass/Vol] 7.5 g/dL Normal 6.0-7.8 [facility] Comment on above: Performed By: #### 2 083431, 9751453, 16078988, 8559155, [id number] ####[facility] [address] [place] [address] Urea nitrogen [Mass/Vol] 14 mg/dL Normal 5-21 [facility] [facility] Comment on above: Performed By: #### 2 [id number], [id number], [id number], [id number], [id number] ####[facility] [address] [place] [address] Urea nitrogen/Creatinine [Mass ratio] 35 No Units High 10-20 [facility] Comment on above: Performed By: #### 2 [id number], 8446204, [id number], [id number], [id number] ####[facility] [address] [place] [address] Anion gap [Moles/Vol] 10 mmol/L Normal 6-16 [facility] Comment on above: Performed By: #### 2 828995, 5028021, [id number], 3929583, [id number] ####[facility] [address] [place] [address] Calcium [Mass/Vol] 9.2 mg/dL Normal 8.9-11.1 [facility] Comment on above: Performed By: #### 2 336016, 8514561, [id number], 2647549, [id number] ####[facility] [address] [place] [address] Chloride [Moles/Vol] 107 mmol/L Normal 101-111 [facility] Comment on above: Performed By: #### 2 891819, 9906918, 75755521, 2262119, [id number] ####[facility] [address] [place] [address] CO2 [Moles/Vol] 23 mmol/L Normal 21-31 [facility] Comment on above: Performed By: #### 2 145265, 5370089, 53093435, 1300596, [id number] ####[facility] [address] [place] [address] Glucose [Mass/Vol] 87 mg/dL Normal 55-199 [facility] Comment on above: Result Comment: If t his glucose result represents a fasting glucose, interpretation should refer to the following reference range: 55-99 mg/dL Performed By: #### 2 930157, 9876356, 47722210, 0665926, [id number] ####[facility] [address] [place] [address] Potassium [Moles/Vol] 3.8 mmol/L Normal 3.5-5.3 [facility] Comment on above: Performed By: #### 2 241979, 3567788, 59400179, 8481562, 70047229 ####[facility] [address] [place] [address] Sodium [Moles/Vol] 136 mmol/L Normal 135-145 [facility] Comment on above: Performed By: #### 2 312217, 8789257, 01809131, 0027390, [id number] ####[facility] [address] [place] [address] Consent for Treatmenton Consent for Treatment [id number] #1.00CD:127 Normal [facility] Discharge Instructionson Discharge Instructions [id number]# 1.00CD:127 Normal [facility] ED Clinical Summaryon 2021 ED Clinical Summary [address] [address] ED Clinical Summary Person Information Name: MARIBEL VELZE/New_Tyrell Age: 21 Years : 2000 Sex: Female Language: Belarusian PCP: CAITIE MARSHALL CNP Marital Status: Single [...] 02/13/2022 07:28:36 02/13/2022 07:28:36 02/13/2022 07:28:36 ADDRESS: [facility] [address] [facility] [id number] PHYS DOC NOTES: Addendum by Kevin Santoro DO on February 13, 2022 07:22:06 EDT MEDICAL INFORMATION: Prescriptions Given: New Medications [id number], [address] [place], [place] [id number], [phone] pramoxine topical (ProctoFoam 1% Foam) apply By rectum 2 times a day for 7 Days. Refills: 0. Medications to Continue with No Changes Other Medications ethinyl estradiol-norgestima te (Sprintec oral tablet) Ib By Mouth every day. ibuprofen (ibuprofen 600 mg Tab) 1 Tablets By Mouth every 6 hours as needed as needed for pain. PATIENT EDUCATION INFORMATION: Instructions: Rectal Bleeding, Dzie-rl-Hags; Hemorrhoids, Ucyp-zc-Pngv Follow up: With: Address: When: [facility], [address] [place] [address] Business (1) In 3 days 02/16/2022 With: Address: When: CAITIE MARSHALL In 3 days DIAGNOSIS: Acute hemorrhoid Normal [facility] ED Note-Physicianon 02-14-20 ED Note-Physician Basic [...] change or worsen. Diagnosis: Rectal bleeding Normal [facility] Comment on above: Result Comment: Bernie [...] 02/10/2012 Document Revised: 05/13/2018 Document Reviewed: 07/26/2016 [employer] Patient Education ? 2020 [employer]. Hemorrhoids Hemorrhoids are swollen veins that may [...] times a day. General instructions ? Take buwf-emi-tuysnrz and prescription medicines only (more content not included)... Normal [facility] ED Patient Summaryon 022 ED Patient Summary [place] [id number] Patient Discharge Instructions Person Information Name: MARIBEL VELEZ Age: 21 Years Arrival Date: 02/13/2022 06:16:54 Discharge Diagnosis: Acute hemorrhoid Primary Care Physician: CAITIE MARSHALL CNP Provider Information Primary Provider: Ana Braxton DO [employer] Person:None The exam and treatment you received in the Emergency Department were for an urgent problem and are not intended as complete care. It is important that you follow up with a doctor, nurse practitioner, or physician?s pastry assistant for ongoing care. If your symptoms become worse or you do not improve as expected and you are unable to reach your usual health care provider, you should return to the Emergency Department. We are available 24 hours a day. MAIRBEL VELEZ has been given the following list of patient education materials, prescriptions and follow-up instructions: Follow-up Instructions: With: Address: When: [facility], [address] [place] [address] Business (1) In 3 days 02/16/2022 With: Address: When: CAITIE MARSHALL In 3 days In the event that this physician does not participate in your insurance network, please consult with your insurance company to find a nearby participating provider. Patient Education Materials: Rectal Bleeding, Axaf-zg-Cfbw; Hemorrhoids, Rsmq-rt-Pgwu A MESSAGE TO ALL PATIENTS REGARDING OPIOIDS PRESCRIPTION OPIOIDS: WHAT YOU NEED TO KNOW Prescription opioids can be used to help relieve qnilxick-jh-ydzqpl pain and are often prescribed following a [...] care professi (more content not included)... Normal [facility] HEMATOLOGYOrdered By: SYSTEM SYSTEM on 02-13-2022 Basophils/100 WBC (Bld) 0.9 % Normal 0.0 - 2.0 % [facility] HemeAutoSS Basophils/Leukocytes Auto (Bld) [Pure # fraction] [...] MDRD (S/P/Bld) [Vol rate/Area] mL/min/{1.73_m2} Normal >=59 [facility] Comment on above: Order Comment: Order added by Discern Expert. Result Comment: eGFR is race adjusted. AA=. Performed By: #### 2 522406, 8927111, 35191661, 3633141, [id number] ####[facility] [address] [place] [address] GFR/1.73 sq M.predicted among non-blacks MDRD (S/P/Bld) [Vol rate/Area] mL/min/{1.73_m2} Normal >=59 [facility] Comment on above: Order Comment: Order added by Discern Expert. Result Comment: Director Of Accounts Receivable linwood kidney disease could be indicated at eGFR's of less than 60 mL/min/1.73m2. Kidney failure is indicated at less than 15 mL/min/1.73m2. Performed By: #### 2 408297, 1132114, 72122954, 6500714, [id number] ####[facility] [address] [place] [address] Coding Summary.on 02-06-2022 Coding Summary. CD:[id number] Gh0bWw+PGhlYWQ+PE1FV QXfW80ghDBtzO4PG2qEX L0GYVDZNTTNRF4BUT6tp QI4KBmyZ6CcpiHu InodjLFcOL11ASu2XVW4 fOwoJFyyyA6ijLZgW5o9 HvFoPP31jG44DMxkZGZi IcY8OuJsrvrfdRCl Q9zzLhPcpDRfTmm+PHRh YmxlIHdpZHRoPScxMDAl JbIzeLlwNX9aXf5vHBLe LWNvbGxhcHNlOiBj j3zaFDUcHYqmAO9qzUmp O6IemUN7XJTgo3o9Ld69 dHI+WQJfTYO1kZlmGUol z621IeHcz1wiEHW3 cSXvGQioXGF4X37gx7S5 KNKtONRiRSR2aNV3cZ7y bSerhigqU0ThsYUbQdS4 ZIR9pIXdjH8bfTtj qzfulP8cEqo+D57KAZ0F AECUAC0FWfm9T2ClAsrg dHI+RS70ZMHoVU36zONt kVNts4qrfWj2ZsBs TQMmVUL7tRzoTFqno3Gs BXQnW93yiPPrn6Z3BUQh dJufuIJsFvSkrSX3mD9o VXrqocllh7aaypfd Kwwly9blbv37rR69T28d ODrsIYScVEE1KYAaDGRa yMzvgp2twH8gHr9+IDxj j5btk6fgvNw0NjKl SXGpwbAceBgxXCA9m0Ut Hc65M5HrlRfbc5LnUoe7 wp66xDJgn7W0vNW2YFwr MRMqkA9oZXwpEzB6 BAQoPqDfhN31uVUtGVdj Iy0zwGogmAdvBM8nHNIx gjpfAVExcU4hRWGvxONh qCyjAI3kTBEzfuge u108UoQwSRN4XAGrmVZe R3IigG7gLiXhRYUaUYTt Q3PtpSByWWbkA963JAsc CoE2AXNumhDaH3Lp MLSslAnxBnS5q5U4Ll7D n1QwootgBOQ9HLitUCH0 JeM8TdNaKmV6B0EwMly7 TDTduYfnMJ3wZ3Lh MJYfleudrrcrpQU2UDUp KDZwgW85yNRtYPbpJu5a j3X6w801ZFTtAIRmmG78 Jv0ibClvCJPtkMUT sX1vloxeg1khnazbEhZw TLJvAHk3YTn8UJXseXho UyIqPHS7EcM0MVD9yNIx pC5mhNqjilwuyK1f Oyc+W95isH6sGNK6BHD2 dldtDDCgqmWeDZ08CZ56 G1FdTlutiEJlpDU+PGRp dbCjcQijZW1lVtAj f4ggn2QkSIfcZ3RbABJo YQsgXxf6QMCbFDK3pIM0 rA1mXZJyKAtan0R0yDN7 Y4PytpXuil8ng8fx HBRtDPokI66ocJIwk9O9 NWIuzPK9UILxjMxpYiSo gC66Ebb+DQCirWhft7Sr Msssv6cyh8anyDk9 IjMwJSIgdmFsaWduPSJ0 w1NaJz48U39uWXygFBMc GUWqVCErUVWlqTtpjr4s gA2pUs2+PGNvbCB3 zKX2dR2dKGRuOhM9PSti M021GjGenAZrZmirq9hx p2wzkRx9CoMyCPQtaaDz pSkzGEA8l0NfRa04 U21lQJzcRBBmCKQiSAPs GSTrcMlqoc5vcL8hUy1+ FY6gv8qtzr37hH15aQX+ RZMnEQN2cMaePMgj UJLvwQ2oYYswXdE5SEPi WyGbrA38ePQbEWpcJe0e qWqmsYphIV6jNACgczwe i761NvKyg9xuCFHd ePUpYSoqGGL4E34xr2O1 DUNhFFUjONA2tQG8fK6p bGlnbjogbGVmdDsgdmVy kDotFKirYBsdL885 IHRvcDsnPlBhdGllbnQg WpZfSKk0K4EsQqj6XSPu zHhpUZ8daWGtIPviFx9x fYbcvQolWH2tARXo mjaqu063JdHhk6jgHFSn pYLdOCrpYKZ5K67pd8B7 DXGsMCRlPLY5nGJ4mP9j bGlnbjogbGVmdDsg yuLnrOzjPNfjLQjzW760 IHRvcDsnPkJpcnRoIERh gUD1TR86NH13zWXax4Z8 qMX6Z4TsKWSqsymx xnqcuAI3UZEqATBxaX74 My1inDebMb1tTTJcPTK7 VINgmDVlZ8GxlU0qMiBp YFHiFTPkB5GviUKb KFsqH776DRatTaV0XGJs pkWqE3WnSZLbcOlqPwD7 g0Q8Ip6RU3T7BT02XN89 pWVwz3S1jCE5T8Ag PLZgfvzgqzmwdRM6IJAr EFKxqK58Py3fuMriTq1t MHEoZZD9RBBjnKZuP1Cs vH2aWsRxXHTzHMGu Z4ZqqUErPOfdW921IDge RhO9PKWjcaPkB9EuLFUn mEqtFjP8e8C6Da0ZSCf6 KP12FZ37yDXre8P3 bKO5T5UxYSHsaxfdheoi yNG6HPAlPREdrN83Uy4h xTbiAj7iDLDwWLQ6UUEi bSNgQ5KutP7wOkEh HBFuPUJzG7McmEKdSDcp I150OMrxJdG4ICFybrZa E1IlNAUidYlhEnH2j4T2 Yj4YNSTcYK74QJR8 dPN1HO40BD40G5LmBqaa dGFibGU+PHRhYmxlIHdp ZHRoPScxMDAlJyBzdHls CU9oTg4wTFTtATKw yMufjCHkTbCqr0eeIEWm GGyiQS0moSsyS6WsuAK1 ZAAaf8s7Ww19O09gL6Yx dXA+WFJfiBW9pBU2 gQ8kUnMcMzW8EKnaB121 OmAtbGYkYrefv0mra6ly rAj8NyX9KVGmrcIggHqs ZMR3h4WwAs10B01y IHdpZHRoPSIxNSUiIHZh aJvywu2qfU0vWa4+PGNv ySI3ePH0tK6sKgGoDwW2 NJrvG528WzIhgOSt Plloc4hvz9miqNa1CyPt ANKxwdHbrTwbMMA1h3Vo Gi23A9QiiDvgp0ZcLgy6 oy21tTGkw6C5fXO9 S5CtWQYjcashoHChzKca WO5xGILvcyqvWWMjcM9f UFNaO8f0QpCxScE4JMik N1LfmrF3MOAciBWh BNhfVUY0J71fu6K6BMXi DOZnIYK0yOK5nE6ykFtp bjogbGVmdDsgdmVydGlj FZfrMXhcB277MODt aQqmPDAnjZ5zJGTpmPYh sYedUK0dIPTeshoyWePK GRlZZJurR2SQTKxXHtqW CP72DC47jYAam3L8 qDL3Z4ZuGZWyiqytahfi fSS9NUOnGOTkaR42aIWo QQwpOq5zx4R0k757VLUs UGNlhJ80Yl1fvOmy DYFhzFLNjV1iqeyjv9kj ktugRaVcYNPwVCe9AWz6 TOIdyMtwVxXxJSN5LoO9 YOP0nXAvkH8ctLig jusalW7cVlh+MDIvMTkv MjAwMzwvdGQ+PHRkIHN0 qXhxXPunEPPwlM8rSAYg C2u1OkJjIvC3ETkg F2HjMKJehnmtZy66aT3v IfMtAfW2WOkrP0NomnF9 UJEmhFVtBNaaSMR0E34g k2N2QZTxSGVqGSZ2 xOX7fA1ekQnhhbedjWWh dDsgdmVydGljYWwtYWxp K035FCIraEtyWyW5LOou ABQoYV72SH32tTBw g3N1xUS7N2GzRMDppycw sypjuJV4SOLvFWWraQ54 qRYyBGvkXe7na4T4r196 KLVrDLGauG77Rk7v dSfqXKNbtOPBdW5qoofu u4ywigshSyCsBKTqZZu1 ZTb1VGHcqJsaZeTtGCR3 LeQ6IKS0zPUtoQ5u aHokzeckoC4zItf+RmVt JWeyPN32TD25tEXpw1L4 rHI7D8LaQWMvomsdsoxb iMT5HOSvMYNlbD70 hLJmZNhbRe7ev8U4c006 QYLpJSNpeH18Zb9lfQvl TXLhoYZYoR6kwftxv1yk cjogIzAwMDAwMDt0 ENf3OELdrTiqWxXcLVC3 PdW7VGQ2uCLhuH6iyVgn nfqaeD3nYbe+U8R5aEL4 aWVudDwvdGQ+PC90 rn35C0SdLnhjPym7CJVm EOC1cWU7eI3bSVGuKNmw j0F4nRN1W4AgjjZqif8u i1dyKUApTQwwP85e pYUoc7K1BDSawQZ3IRTa rNzwHxDsbJ88Mqm+PGNv gUcwm8BcJuawo2xev3ft oBr3GtVdERIjrwLj zOrrJPS6x1ToIw83P65n IHdpZHRoPSIzMCUiIHZh zYcfwh9ccV3xNk0+PGNv tOL4hXK6uU9nDdCg KlG4XNefK054BnFqxSNw Kbsbc4mol3shxCv6EjLe IRStvsXvoNbqMAV3i6Of Im25J5JtqAhpc5Zv Hte8qr86wDIhu9V7tHJ7 T4PzLKWpdspqeHPsrMxf XM7uJTIercdbIYMxuU9z POUaG8i1BvZhGzL3 CNppW8RmtqC1JAFuiRSu QLRbpPTPeE3qttewn5jn owhzNpJvNHTeIZv1MFi8 LWFsaWduOiBsZWZ0 GcZ7DPV8nSXtcO1kbQid huebrE4zJpb+IYf1g4nj iSZtJI6bpYU9MV44ZC04 bHMzp4V0nFA1K3Ez TVVardcadxgonFQ8MBNq IBZlsK79Cr6dwAneEh3d MSEhWDM3NGCbdSBjM8Xl fS3wIrAlQFZeSOCy X4UaqNDuDMebZ612LOem JlA3URAfquMdR9ZoCQSb rDokJbQ0w7Y5Sb3ZRR00 RU67AR07cBOal1B7 yPX6O1WiCCYijgqnohme kAV2RSWcWTDmcR58Lw1e zGljUu6oVPVwSGG5FPEq bNJrO2DlcK0oIfSq PULdXURsU3EauQMcMNny V014TZoeYkV6LOLumhXf B2LyFTMokIwnMhM8r2Z8 Ks4YWe95MJ04IE07 sLOjo0I7kZW2Q4NgIRIr wvxaeboazKG7GOTpVYDp fD59Do0ssNikLj7fJLCu EDC4RYPukNGoZ3Vw pY0qHcZnQCLcEEHgC6Vs uNDbDNqoM099MEifUdG2 BIScltPvG3QtQKEdzMxv LfF9u8S3Do0ZUEpc iln5S4YqJvfgiSL+PC90 HWVbRI83eVIzjKSfg2lp jTg2DmQwCAZwDDK9pLho SVzop8YmGGKmA60k bGFw (more content not included)... Normal [facility] Consent for Treatmenton 01-13 Consent for Treatment [id number] 20 [id number] #1.00CD:127 Normal [facility] Physician Orderon 02-03-2022 Physician Order [id number] #1.00CD:127 Normal [facility] XR Shoulder Complete Righton 02-03-2022 XR [...] M.D. Transcribed by: CHRIS Technologist: JULITO Hanson [facility] CBC AUTO DIFFon 01-15-2022 BASO # 0.0 103/ul Normal 0.0-0.1 [facility] Comment on above: Performed By: #### C BC #### [facility] [address] [place] [address] Dr. Venancio Soriano Basophils/100 WBC (Bld) 0.6 % Normal 0.2-2.0 [facility] Comment on above: Performed By: #### C BC #### [facility] [address] [place] [address] [address] Venancio Soriano EO # 0.1 103/ul Normal 0.0-0.7 [facility] Comment on above: Performed By: #### C BC #### [facility] [address] [place] [address] [address] Venancio Soriano Eosinophils/100 WBC (Bld) 1.3 % Normal 0.9-7.[address] [facility] Comment on above: Performed By: #### C BC #### [facility] [address] [place] [address] [address] Venancio Soriano Erythrocyte distribution width (RBC) [Ratio] 12.8 % Normal 11.0-15.0 [facility] Comment on above: Performed By: #### C BC #### [facility] [address] [place] [address] Dr. Venancio Soriano Hematocrit (Bld) [Volume fraction] 36.5 % Normal 36.0-48.0 [facility] Comment on above: Performed By: #### C BC #### [facility] [address] [place] [address] Dr. Venancio Soriano Hemoglobin (Bld) [Mass/Vol] 12.2 g/dL Normal 12.0-16.0 [facility] Comment on above: Performed By: #### C BC #### [facility] [address] [place] [address] Dr. Venancio Soriano IG # 0.01 10e3/ul Normal 0.00-0.03 [facility] Comment on above: Performed By: #### C BC #### [facility] [address] [place] [address] Dr. Venancio Soriano IG % 0.2 % Normal 0.0-0.5 [facility] Comment on above: Performed By: #### C BC #### [facility] [address] [place] [address] Dr. Venancio Soriano LYMPH # 2.7 103/ul Normal 1.2-3.[address] [facility] Comment on above: Performed By: #### C BC #### [facility] [address] [place] [address] Dr. Venancio Soriano Lymphocytes/100 WBC (Bld) 42.9 % Normal 20.5-60.0 [facility] Comment on above: Performed By: #### C BC #### [facility] [address] [place] [address] Dr. Venancio Soriano MANUAL DIFF REQ NO Normal [facility] Comment on above: Performed By: #### C BC #### [facility] [address] [place] [address] Dr. Venancio Soriano MCH (RBC) [Entitic mass] 29.4 pg Normal 26.7-34.0 [facility] Comment on above: Performed By: #### C BC #### [facility] [address] [place] [address] Dr. Venancio Soriano MCHC (RBC) [Mass/Vol] 33.4 g/dL Normal 29.9-35.[address] [facility] Comment on above: Performed By: #### C BC #### [facility] [address] [address] [address] Venancio Soriano MCV (RBC) [Entitic vol] 88.0 fL Normal 81.0-99.[address] [facility] Comment on above: Performed By: #### C BC #### [facility] [address] [place] [address] Dr. Venancio Soriano MONO # 0.5 103/ul Normal 0.3-0.[address] [facility] Comment on above: Performed By: #### C BC #### [facility] [address] [place] [address] Dr. Venancio Soriano Monocytes/100 WBC (Bld) 7.2 % Normal 1.7-12.[address] [facility] Comment on above: Performed By: #### C BC #### [facility] [address] [place] [address] Dr. Venancio Soriano NEUT # 3.0 103/ul Normal 1.4-6.[address] [facility] Comment on above: Performed By: #### C BC #### [facility] [address] [place] [address] Dr. Venancio Soriano Neutrophils/100 WBC (Bld) 47.8 % Normal 43.0-75.[address] [facility] Comment on above: Performed By: #### C BC #### [facility] [address] [place] [address] Dr. Venancio Soriano Platelet mean volume (Bld) [Entitic vol] 9.5 fL Normal 9.5-13.[address] [facility] Comment on above: Performed By: #### C BC #### [facility] [address] [place] [address] Dr. Venancio Soriano PLT 323 103/ul Normal 150-[address] [facility] Comment on above: Performed By: #### C BC #### [facility] [address] [place] [address] Dr. Venancio Soriano RBC 4.15 106/ul Critically low 4.20-5.40 [facility] Comment on above: Performed By: #### C BC #### [facility] [address] [place] [address] Dr. Venancio Soriano WBC 6.2 103/ul Normal 4.0-11.0 [facility] Comment on above: Performed By: #### C BC #### [facility] [address] [place] [address] Dr. Venancio Soriano PROF 14(COMP METB)on 022 Albumin [Mass/Vol] 4.0 g/dL Normal 3.4-5.0 [facility] Comment on above: Performed By: #### C MP #### [facility] [address] [place] [address] Dr. Venancio Soriano Albumin/Globulin [Mass ratio] 1.2 {ratio} Normal [facility] Comment on above: Performed By: #### C MP #### [facility] [address] [place] [address] Dr. Venancio Soriano ALP [Catalytic activity/Vol] 67 U/L Normal 46-116 [facility] Comment on above: Performed By: #### C MP #### [facility] [address] [place] [address] Dr. Venancio Soriano ALT [Catalytic activity/Vol] 16 U/L Normal 14-59 [facility] Comment on above: Performed By: #### C MP #### [facility] [address] [place] [address] Dr. Venancio Soriano Anion gap [Moles/Vol] 11.8 mmol/L Normal [facility] Comment on above: Performed By: #### C MP #### [facility] [address] [place] [address] Dr. Venancio Soriano AST [Catalytic activity/Vol] 9 U/L Critically low 15-37 [facility] Comment on above: Performed By: #### C MP #### [facility] [address] [place] [address] Dr. Venancio Soriano Bilirubin [Mass/Vol] 0.3 mg/dL Normal 0.2-1.0 [facility] Comment on above: Performed By: #### C MP #### [facility] [address] [place] [address] Dr. Venancio Soriano Calcium [Mass/Vol] 8.6 mg/dL Normal 8.5-10.1 [facility] Comment on above: Performed By: #### C MP #### [facility] [address] [place] [address] Dr. Venancio Soriano Chloride [Moles/Vol] 106 mmol/L Normal 98-[address] [facility] Comment on above: Performed By: #### C MP #### [facility] [address] [place] [address] Dr. Venancio Soriano CO2 [Moles/Vol] 24.9 mmol/L Normal 21.0-32.0 [facility] Comment on above: Performed By: #### C MP #### [facility] [address] [place] [address] Dr. Venancio Soriano Creatinine [Mass/Vol] 0.58 mg/dL Normal 0.55-1.02 [facility] Comment on above: Performed By: #### C MP #### [facility] [address] [place] [address] Dr. Venancio Soriano EGFR-AF UZBEK >60 Normal >=60 [facility] Comment on above: Performed By: #### C MP #### [facility] [address] [place] [address] Dr. Venancio Soriano EGFR-NON AF UZBEK >60 Normal >=[address] [facility] Comment on above: Performed By: #### C MP #### [facility] [address] [place] [address] Dr. Venancio Soriano Globulin (S) [Mass/Vol] 3.3 g/dL Normal [facility] Comment on above: Performed By: #### C MP #### [facility] [address] [place] [address] Dr. Venancio Soriano Glucose [Mass/Vol] 94 mg/dL Normal 74-106 [facility] Comment on above: Performed By: #### C MP #### [facility] [address] [place] [address] Dr. Venancio Soriano Potassium [Moles/Vol] 3.7 mmol/L Normal 3.5-5.[address] [facility] Comment on above: Performed By: #### C MP #### [facility] [address] [address] [address] Venancio Soriano Protein [Mass/Vol] 7.3 g/dL Normal 6.4-8.2 [facility] Comment on above: Performed By: #### C MP #### [facility] [address] [address] [address] Venancio Soriano Sodium [Moles/Vol] 139 mmol/L Normal 136-145 [facility] Comment on above: Performed By: #### C MP #### [facility] [address] [address] [address] Venancio Soriano Urea nitrogen [Mass/Vol] 9.0 mg/dL Normal 6.4-19.3 [facility] Comment on above: Performed By: #### C MP #### [facility] [address] [address] [address] Venancio Soriano Urea nitrogen/Creatinine [Mass ratio] 15.5 mg/mg Normal [facility] Comment on above: Performed By: #### C MP #### [facility] [address] [address] [address] Venancio Soriano Discharge Instructionson Discharge Instructions [id number]:[id number] Normal [facility] ED Note-Physicianon 10-23-19 ED Note-Physician Basic [...] Orders: Influenza A&B Ag Rapid COVID Antigen ([facility]) Disposition Plan Patient Discharge Condition Stable Discharge Disposition Home Discharge Prescription List Prescriptions No active prescription medications Follow-up With When Contact Information Michelle Mata In 3 days 10/22/2021 EDT Additional Instructions: Patient Education Viral Respiratory Infection, [id number] Attestation This visit was performed by both [...] Diagnostic Results No qualifying data available. Normal [facility] Comment on above: Result Comment: Elec tronically Signed By: Cherry Hazel PA-C\.br\Date and Time Signed: 10/19/21 17:19 EDT\.br\Electronically Co-Signed By: Miko Kaur MD\.br\Date and Time Co-Signed: 10/22/21 10:35 EDT Coding Summary.on 10-20-2021 Coding Summary. CD:[id number] Gh0bWw+PGhlYWQ+PE1FV BUzG66wwAEfaS5ML0nVE T6VGBWMDHWLMN9EWS3nl UJ6ZPbmT4GrdxSq KajtrKGiOU95QNr5GFA7 pPoxDFeylM8jlAKuQ0c3 EeEaYS92tX95ELszADAz KjU7VpVboksdxZZc B9vrQdYadIIaWfn+PHRh YmxlIHdpZHRoPScxMDAl BaZnuYxbXY5jUi3nHDUv LWNvbGxhcHNlOiBj s4dzPDEfCLlwRN1sqMkg P1AzbAG1SCAim4o3Yw53 dHI+JAAaRES8kJudCJmu i732LbBgc0sgIUO4 uROkNPqzUNN4Z56zs8C9 UJRzWAXeLXZ4dZO9hW5m oWlhtozeK0BcgRXmYdF1 MUA6gZIrlZ2dtXeo acsiwO4pFbz+R18FKN5Z EHJJCL1SXpj7Z6HmVppz dHI+WV37DSHcSE48pVYw rKEfy2dluIi0OsWv IERrEKW3sCvzAHvpx7Gc MHPeR63pjKIkg9N3ZNFw dAragYWpOwZesBZ8pK3d BRzdcoslj3xlqvio Gshqa5ekzp57jN00F19k KLaxCJLwFLX4WEErGUUc pPthpt5zxJ5xZt4+IDxj t5dkk7vuhMe3SdRa YSRvjsRbnGfwVCT5m0Fw Fz16U7MkhDaoz2JiLuf0 ap74rNNwh4R1kXW1ZKrl CPValF3qMLhgWbS3 IPMuCfHohW67dVSlAUec Qd5ipDdrhDjnQR7sZBIg pnmrTDVuzJ6pPRNcwCGv sYxiLY7bWKDbyeax c390PuSrJCG9NJXzzNZr I3CkqO6zOgViJXDzHGUk H1QdkJYaGPraA654VGkr RzD1OPFmmiEjJ9Ab RNOxpLujUeR8t9D8Yr1T f2LajqjeSFG3GCfoCYU6 NnV8XtPiRlC6P6OdQxa8 YAZtlOxyOH2dU3Rf XUAblbqhybdtiYH7JBUi AAXotN29kBNnIQtmKv9j h2V4b454MMZtIDOysM11 Gj5zgJxxFKJtyHZR oK2omoqrb8awggsvIeHb QYJrCNm6MId9LBOtsNbj YbMaCZC2CmF3OEW4dRLq mI8viNvoojuhoJ7k Oyc+Z27ygS8sVDN3AGZ8 uvmkQXCfonQnAD78FQ82 K0FzZuscgSZyfHM+PGRp zaAeuWgxQJ4lOyKr a7doo4UtQPezR2HfOEGm ZWhzNwq9NMXcGQH3rPI7 zT5zYUErHXzpm3O9nQB9 C7FrgpIdta5dh7tm DZGlYShvG72mjJXjy5H8 SVEdpYE4QYSqsPqeJzJe oX10Rpu+DRFgiVcne2Ow Gxtcy4llt7yrrSn4 IjMwJSIgdmFsaWduPSJ0 g0KdRw15D60bTCuyXTPr AOWdZCUdZHWsrIjmky9v vJ7gOc9+PGNvbCB3 iQW4iI6vAQTlVsL4JRko G117FoUsvIYzAocnp9re i1ndrKi5XhWlOEGwnjVd qPbzKOC7q8NhKn09 H73zHIbuELIuQRKbHXDz MITsxGisln3kvF6tVd5+ NU3bq3efho68zB94nJS+ IGEaNIA4sNuaTXzs GLYteL0dYIouWhR7KAAg FtGnqT21uQAiXCmmAf3x uBqpxPzqEO9hRATllmon u617FzYsw6khEBTz zHKiDKxvGDP4D19rg4P9 FXPdNKHkMER4tCK6xR8z bGlnbjogbGVmdDsgdmVy kTlxHQhdNEuaC550 IHRvcDsnPlBhdGllbnQg AfOyRZl7U9EcEku9CXKd hXgfQN0rzHBbYQppUg2e nGpngEhvSU2yJOUv rcwrm655YgLak2nkZDLi eEUoJIkoEWW9U55yc1P6 VSPaJOVzDNN4oIM0iT3d bGlnbjogbGVmdDsg ucOpdVnjWZewYKguH003 IHRvcDsnPkJpcnRoIERh kAG7QK35PI39kXTdh9U1 zMX4B1CyTEHxgtdy msugtPD1KAWgRDUlqW79 Sq7tiBtyPb4fOCRsLGW9 BMKjoLZeM0GaiB1fCtBs NZRaVZUqX4ZlrJCq TBvlE132TZzaInY9JLOt woLsB7QmJGZbwDraLxC8 h1L6Hr8ST5R5UT74KS32 cIGxn6M9mPD8K1Jc FIBjwdqzjdzubSJ2QRXc YQJwcI27Va8yxMbfEq7l DAPmRYK4ZCBqfUAoN6Vc fN4dViBrFYVwRETw E0VflGHeBVzfJ153EDde OaQ2IDBfcaMwP4HqZBBt bGwnVzM9r1X7Xn8XXSn0 VV27LK66yLMvx5J1 zSM8K3KxOMKnlzoiprkd kLG1YXZcBRZczF57Nx1j jOcqCe4yKIMrHTY4FVXv nNQxC0TqbQ5wCuKi TEUqSVCbZ5JjtBDgWZqh E814PDxzGfV0WMVqofTg P8SuRNAkaLjmXmW3q1Q2 Wv0QTMFqBE48AWS6 tWM6AL93ZF63N1WwGuun dGFibGU+PHRhYmxlIHdp ZHRoPScxMDAlJyBzdHls GZ3yJs6lBYYbKBNj wCnzuEJgGySbr8wrFWEt TUdgXO8wtHtoH4YicMO1 THZku1a0Vs66O72xZ5Mi dXA+XEDsoCO3iQD3 gB8kCjMiGmK4EXmcC389 ZsWvkGUmHkwfo7ksh3fc uKv1NnL4BOMxckXmpQph JZS5k2PuFk63M64u IHdpZHRoPSIxNSUiIHZh oYrpeu9urX4zGk8+PGNv qQP5pJW3lP3bMaUsAqR7 CEjjF391XeNzoCCw Zucrf3kdx6cueBu7WhRy CROpvqAmuCokKOU5q7Eu Lv24Y1OrfBqwo1QqXha8 oq10eXQta1P4kYZ7 S7KjLTJzeeobqJAhzGtw ZY0nFBXaouavRTZjrC1e HUVxC3m4DyRmTwD9MQtq E2MkmvK8AOFjwOGz ZExwAVJ0U53dp8B9AAMv KUSpKGQ2hGE9lA4szMvg bjogbGVmdDsgdmVydGlj EOymOPvxV879IRUn tJoiXOUgpX5vUMNqeYLi fYcrAC6nOZRdqkziBmIG JDnDLWgbN7FPLBoJHksS WG28OP77uWCka0K5 uLZ6H0GaTNXlzbcnmrtj hHN4XBGfUDLmkV72mAWo VAmsGo0vh6R4z881AUNr FWXnaV25Lr4nuBog SQCfuZCNzK3gnxaao0nl gbgzTcOlMJUqJTl6WEs9 UGMrsVblDoDlJAS1PhN9 ROQ5aBZtbE4uuMic gqbfgZ5xSva+MDIvMTkv MjAwMzwvdGQ+PHRkIHN0 qGnqYMbiZUNenV2dHUXs I1a9MoOxLhE7SSfv O8LpRBAxtpegPo74rT0d AlEkMjE3LTapC2ChgyZ3 LOAcjRWgIPtnSED8Z25d c3H6DCKeTGCwJEB2 yES2vE1siUhjzvzbgZEg dDsgdmVydGljYWwtYWxp S562ZNTjvGhcOfY7POrw MNFyKC09TM19dRXo b1L3dZO0D7PrIXRboukp vcdueET8ZCGoVITxnE13 bRDePHufPx7ne9K3d749 YJSfZPFywL05Ph9b dQlzLWZapNNJgT2evlgn k2epqntwBlNlEYWxDUg9 MTd4XKQieOvlEiYkDLS5 QeZ2LQM0cOTdiP0z vZmlhqxhnY7nRho+RmVt ZWqpAW40GW44fSIui6E8 wXH6O9MxXFYigsrekhec nHB8YYJcDCAiyO18 mDQsAOhyLy6hl1M3s390 EPYhPAAyzK49Bt1jjPuu QITubUBDbI7knjplv0co cjogIzAwMDAwMDt0 VHr7MYMmwEseKfHhWHD3 JzS4LZM7hXBmnH9oxVsv fdvarG3sUlb+HD5sopsn vmB5ON50OR26B2Ut PjwvdGFibGU+PHRhYmxl IHdpZHRoPScxMDAlJyBz gWbmVI9gFt9aZYOrZCOv nTsutJBaBvXvq5ka NPTmSHgeZL4fsOqnP0Nd hCA9URFot9n6Qz99X43b X6YudJB+VMHmlYI8oUK5 bC6zRpNuSaF9SZfs G402KpDylQLzCxheo2ln g7kweRg8MfWnMJTrypIt eAtnQKR0f2WwRc44B80i IHdpZHRoPSIyMCUi OMQohWysle8isQ8aQe2+ RCBkiKD6aSS1rW1dMpLr XdP5TWgoW878KaDrwMQa QxfaP63jG6TywHN+ RIMmRzc5WBSyaYdyEQ9h uHZdITpgQl4gYTY6BaFx BvFvYAnaN3SoTUSfqvno jtozoSR9ZMXwLTXv dC92Rr1dnXknAo7qZCCn QAN4EOAbnGYiW2ZurS7z NyHtXIJrDXQcQ6KcvLGp DJtkB756KHhaJxT3 EZJlgyXvT5SaNXLqtKxf UgT1g1P7Xn0XjDulkXBh DK3uDcWmIDt4Y1MwZuo1 JLVxuRdjTP9tfROs QZwlOl3zjPdrwFsnMH6x IKVjjusck176MlYpz3jb UMEeqNFiAGmgNJC6D75j n2J8BNBmFZCjAXF8 xHB5tO7ddWlfdkynhFBk dDsgdmVydGljYWwtYWxp Q261ITBiwPwnDgSWXxb5 Q3JbDvz4CLWhwTho GM9idPYfSDmjOl7ikBoe bPonMZ2tFVSryomsp366 CuAdl6tnQYGvwTCvNUpc HAE1K53kp0L3JNKd NGLnBSN9kSI8sU4efUne bjogbGVmdDsgdmVydGlj YRknPEjwB076VEBquZwo Rz1IFnb6E0NaJay6 DQAhvGezTO5acOCuTPon Ap1vxPmwjBsfBR3aZBAu lqrrw110CoEfk4euSVBp bEXaQIhnCQS1I07d q3M4JWPaMKKeTLK0rUP8 zZ7ihMdevkbxcUTcvPiz hrEjhWufAWoqQAlpJ271 IHRvcDsnPlBheWVy OjwvdGQ+BW25yn31B5Lt NzteLxp1AHRiOKP7vKQ6 lI7sEUJwAGhkm5S4uEZ9 K0ElgpZwzp9jf4cp YXBz (more content not included)... Normal [facility] Consent for Treatmenton Consent for Treatment [phone] 20 [id number] #[id number] Normal [facility] ED Clinical Summaryon 2021 ED Clinical Summary [place] [address] ED Clinical Summary Person Information Name: MARIBEL VELEZ/[facility] Age: 21 Years : 2000 Sex: Female Language: Belarusian PCP: NAIMA PEREZ MD Marital Status: Single [...] 10/19/2021 17:27:21 10/19/2021 17:27:21 10/19/2021 17:27:21 AD[address]ESS: [address] [id number] [facility] DOC NOTES: MEDICAL INFORMATION: Prescriptions Given: Medications to Continue with No Changes Other Medications ethinyl estradiol-norgestima te (Sprintec oral tablet) Ib By Mouth every day. ibuprofen (ibuprofen 600 mg Tab) 1 Tablets By Mouth every 6 hours as needed as needed for pain. PATIENT EDUCATION INFORMATION: Instructions: Viral Respiratory Infection, Hjba-Nk-Kygz Follow up: With: Address: When: Salena ANTONIOMichelle Gilbert In 3 days 10/22/2021 DIAGNOSIS: 1:Viral respiratory illness; Other viral agents as the cause of diseases classified elsewhere Normal [facility] ED Patient Education Noteon 10-19-2021 ED [...] home: Managing pain and congestion ? Take glut-wpk-ygqwkyr and prescription medicines only as told by [...] and water are not available, use hand intercell connector placer. ? Avoid contact with people who are [...] 05/13/2009 Document Revised: 06/08/2019 Document Reviewed: 07/11/2018 [employer] Patient Education ? 2020 [employer] Normal [facility] ED Patient Summaryon 022 ED Patient Summary [place] [id number] Patient Discharge Instructions Person Information Name: MARIBEL VELEZ Age: 21 Years Arrival Date: 10/19/2021 17:05:16 Discharge Diagnosis: 1:Viral respiratory illness; Other viral agents as the cause of diseases classified elsewhere Primary Care Physician: JOSE G VENCES, NAIMA Joseph Provider Information Primary Provider: [employer] Counter Sales Person:None The exam and treatment you received in the Emergency Department were for an urgent problem and are not intended as complete care. It is important that you follow up with a doctor, nurse practitioner, or physician?s pastry assistant for ongoing care. If your symptoms [...] provider. Patient Education Materials: Viral Respiratory Infection, Bvks-Rm-Kkku A MESSAGE TO ALL PATIENTS REGARDING OPIOIDS PRESCRIPTION OPIOIDS: WHAT YOU NEED TO KNOW Prescription opioids can be used to help relieve uiaopkoh-jq-pgikcj pain and are often prescribed following a [...] be struggling with addiction, tell your health technical healthcare consultant and ask for guidance or call [facility]?S National Helpline at 8-828-428-STYZ. j Source: [facility] (more content not included)... Normal [facility] Influenza A&B Agon 2 Influenzae A Ag Negative Normal Negative [facility] Comment on above: Performed By: #### 1 [id number] ####[facility] [address] [place] [address] Influenzae B Ag Negative Normal Negative [facility] Comment on above: Result Comment: Test sensitivity and specificity vary for age group, specimen type, antigen types, and prevalence of disease. Test results must be evaluated in conjunction with other clinical data available to the physician. Individuals who received nasally administered Influenza A vaccine may have positive test results up to 3 days after vaccination. Performed By: #### 1 [id number] ####[facility] [address] [place] [address] MICRO OTHER TESTSOrdered By: Mya Reza on 10-19-2021 Influenzae A Ag Negative (10/19/21 5:05 PM) Normal Negative [facility] Man Sero Influenzae B Ag Negative (10/19/21 5:05 PM) Normal Negative FT Man Sero Rapid COV Int NEG Ctl Pass (10/19/21 5:05 PM) Normal FT Man Sero Rapid COV Int POS Ctl Pass (10/19/21 5:05 PM) Normal FT Man Sero SARS-CoV+SARS-CoV-2 (COVID-19) Ag IA.rapid Ql (Resp) Not Detected (10/19/21 5:05 PM) Normal Not Detected [facility] Man Sero Rapid COVID Antigen (FT)on 10-19-2021 Rapid COV Int NEG Ctl Pass Normal [facility] Comment on above: Performed By: #### 2 [id number] ####[place] [address] [place] [address] Rapid COV Int POS Ctl Pass Normal [facility] Comment on above: Performed By: #### 2 [id number] ####[address] [address] SARS-CoV+SARS-CoV-2 (COVID-19) Ag IA.rapid Ql (Resp) Not detected Normal Not Detected [facility] Comment on above: Result Comment: The [employer]? System for Rapid Detection of SARS-CoV-2 is [...] or revoked sooner. Performed By: #### 2 [id number] ####[place] [address] ADMITTED TO INTENSIVE CARE UNIT FOR CONDITION OF INTEREST:FIND:PT: NO Normal [facility] Comment on above: Performed By: #### 2 [id number] ####[place] [address] EMPLOYED IN A HEALTHCARE SETTING:FIND:PT: NO Normal [facility] Comment on above: Performed By: #### 2 [id number] ####[place] [address] FIRST TEST FOR CONDITION OF INTEREST:FIND:PT: Unknown Normal [facility] Comment on above: Performed By: #### 2 [id number] ####[place] [address] HAS SYMPTOMS RELATED TO CONDITION OF INTEREST:FIND:PT: YES Normal [facility] Comment on above: Performed By: #### 2 [id number] ####[place] [address] HOSPITALIZED FOR CONDITION OF INTEREST:FIND:PT: NO Normal [facility] Comment on above: Performed By: #### 2 [id number] ####[facility] [address] [place] [address] STATUS:FIND:PT: NO Normal [facility] Comment on above: Performed By: #### 2 [id number] ####[facility] [place] [id number] RESIDES IN A CONGREGATE CARE SETTING:FIND:PT: NO Normal [facility] Comment on above: Performed By: #### 2 [id number] ####[facility] [address] [place] [address] US SINGLE QUAD RT UPPERon US SINGLE [...] by: SUGAR CAMARENA Date: 2021-09-19 11:51 Normal [facility] 08-05-2021 [facility] [place] [place] [address] Nuclear Medicine Report Signed Patient: Maribel Velez MR#: [id number] : 2000 Acct:[id number] Age/Sex: 21 / F ADM Date: 08/05/21 Loc: [place] Room: Type: [facility] Attending Dr: Amy aTng DO Ordering Provider: Amy Tang Jr, DO [...] Amrit Cevallos M.D.08/05/2021 4:16 PM Dictation Location: [place] [address] Transcribed By: [facility] 08/05/211615 Dictated By: Amrit Cevallos DO 08/05/211610 Signed By: 08/05/211615 Normal [facility] HCG,Urineon 07-29-2021 Beta HCG ( test) Ql (U) Negative Normal [facility] Comment on above: Result Comment: PERF ORMED BY: [place] [address] PATHOLOGIST QUALITY ASSURANCE COACH EDDIE CORTÉS M.D. Performed By: #### U HCG #### [address] 07-29-2021 L Specimen: [id number] Received: 07/29/21 Status: AMMY Valdes Num: [id number] Spec Type: Surgical Subm Dr: Amy Tang Jr, DO Tissues: A Colon Biopsy (RANDOM BX) Procedures: HE Stain/2, Gross/Micro L4 Patient Age/Sex Location Account Attending Physician Maribel Velez [id number] Amy Tang Jr, DO SPEC NUM: [id number] RECD: 07/29/21 STATUS: AMMY FREEMANSander NUM: [id number] DIMITRI: 07/29/211054 [facility] DR: Amy Tang Jr, DO ENTERED: 07/29/21 [facility] [address]: ELENA TYPE: Surgical DEPT: S ORDERED: [...] microscopic findings support the above pathologic diagnosis. [id number] Specimen: [id number] Received: 07/29/21 Status: ОЛЕГIlya Lucio Num: [id number] Spec Type: Surgical Subm Dr: Amy Tang Jr, DO Tissues: A Colon Biopsy (RANDOM BX) Procedures: HE Stain/2, Gross/Micro L4 Patient: Maribel Velez [id number] (Continued) Signed (signature on file) Eddie Cortés MD 07/30/21 6136 [facility] COVID-19 Antigenon 2 COVID-19 Antigen Healthcare Worker?: [...] its performance Lucas Disclaimer characteristic determined by [employer] and Lucas Disclaimer validated at [facility]. This Lucas Disclaimer test has not been [...] is terminated or revoked sooner. PERFORMED BY: [place] [phone] PATHOLOGIST QUALITY ASSURANCE COACH EDDIE CORTÉS M.D. Normal [facility] Comment on above: Performed By: #### C OVID-19 LUCAS, SOFIANEG #### [facility] [address] [place] [address] Lucas Ag Negativeon 07-25-19 22 Lucas Ag Negative Negative Normal Negative [facility] Comment on above: Result Comment: This is a duplicate Lucas SARS Antigen (REINIER) result to be used for statistical tracking purpose only. PERFORMED BY: [place] [phone] PATHOLOGIST QUALITY ASSURANCE COACH EDDIE CORTÉS M.D. Performed By: #### C OVID-19 LUCAS, SOFIANEG #### [facility] [address] [place] [address] COVID-19 Antigenon 2 COVID-19 Antigen Healthcare Worker?: N Lucas Reference Lucas Reference Negative SARS-CoV+SARS-CoV-2 (COVID-19) Ag [Presence] in Respiratory specimen by Rapid immunoassay Negative for SARS Antigen by REINIER COVID19 Blank Space Lucas Disclaimer Negative results, from patients with symptom Lucas Disclaimer onset beyond five days, should be treated as Lcuas Disclaimer presumptive and confirmation with a molecular [...] its performance Lucas Disclaimer characteristic determined by [employer] and Lucas Disclaimer validated at [facility]. This Lucas Disclaimer test has not been [...] is terminated or revoked sooner. PERFORMED BY: [place] [phone] PATHOLOGIST QUALITY ASSURANCE COACH EDDIE CORTÉS M.D. [facility] Comment on above: Performed By: #### S OFJOSE ANGELEG, COVID-19 LUCAS #### [address] Lucas Ag Negativeon 07-16-19 22 Lucas Ag Negative Negative Normal Negative [facility] Comment on above: Result Comment: This is a duplicate Lucas SARS Antigen (REINIER) result to be used for statistical tracking purpose only. PERFORMED BY: [place] [address] PATHOLOGIST QUALITY ASSURANCE COACH EDDIE CORTÉS M.D. Performed By: #### C UU #### [address] #### VAGINITIS+ #### [facility] , Patient [...] meters squared number. To calculate BMI with Belarusian measurements: 1. Measure weight in lb. 2. [...] from 2?20 years of age. Health daycare teacher use the charts to identify underweight and [...] 08/20/2004 Document Revised: 05/13/2018 Document Reviewed: 11/11/2016 [employer] Patient Education ? 2019 [employer]. [facility] Urinalysis - AUTOMATEDon Appearance (U) cloudy [employer] Other Bilirubin Ql (U) Negative [employer] Other Color (U) yellow [employer] Other Glucose Ql (U) Negative [employer] Other Hemoglobin Ql (U) Negative [employer] Other Ketones Ql (U) Negative [employer] Other Leukocyte esterase Test strip Ql (U) small [employer] Other Nitrite Ql (U) Negative [employer] Other pH (U) 8.5 [pH] [employer] Other Protein Ql (U) Negative [employer] Other Specific gravity (U) [Rel density] 1.025 [employer] Other Urobilinogen (U) [Mass/Vol] 1.0 mg/dL [employer] Other Urinalysis - AUTOMATED [facility] [employer] Other Urine Cultureon 04-08-2021 Bacteria identified Cx Nom (U) Reason for Exam Vaginal discharge Urine 75,000 colonies/ml mixed bacterial skin contaminants 2 Days PERFORMED BY: [place] [address] PATHOLOGIST QUALITY ASSURANCE COACH EDDIE CORTÉS M.D. [facility] Comment on above: Performed By: #### C UU #### [facility] [address] [place] [address] #### VAGINITIS+ #### [facility] , Vaginitis Plus (VG+)on 04-08 Atopobium Vaginae Low - 0 Normal . [facility] Comment on above: Order Comment: Reaso n for Exam High risk bisexual behavior Performed By: #### C UU #### [facility] [address] [place] [address] #### VAGINITIS+ #### [facility] , BVAB2 Low - 0 Normal . [facility] Comment on above: Order Comment: Reaso n for Exam High risk bisexual behavior Performed By: #### C UU #### [facility] [address] [place] [address] [place] #### VAGINITIS+ #### [facility] , Makayla Albicans, YUNIOR Positive Critically abnormal Negative [facility] Comment on above: Order Comment: Reaso n for Exam High risk bisexual behavior Result Comment: This test was developed and its performance characteristics determined by [facility]. It has not been cleared or approved by the Food and Drug Administration. Performed By: #### C UU #### [facility] [address] [place] [address] [place] #### VAGINITIS+ #### [facility] , Makayla Glabrata, YUNIOR Negative Normal Negative [facility] Comment on above: Order Comment: Reaso n for Exam High risk bisexual behavior Result Comment: This test was developed and its performance characteristics determined by [facility]. It has not been cleared or approved by the Food and Drug Administration. PERFORMED BY: [place] [address] PATHOLOGIST QUALITY ASSURANCE COACH EDDIE CORTÉS M.D. Performed By: #### C UU #### [address] #### VAGINITIS+ #### [facility] , Chlamydia Trachomotis, YUNIOR Negative Normal Negative [facility] Comment on above: Order Comment: Reaso n for Exam High risk bisexual behavior Performed By: #### C UU #### [place] [address] [place] #### VAGINITIS+ #### [facility] , Megasphaera Low - 0 Normal . [facility] Comment on above: Order Comment: Reaso n [...] Administration. Performed By: #### C UU #### [facility] [address] [place] [address] [place] #### VAGINITIS+ #### [facility] , Neisseria Gonorrhoeae, YUNIOR Negative Normal Negative [facility] Comment on above: Order Comment: Reaso n for Exam High risk bisexual behavior Result Comment: Perf ormed at: =G - [facility] [address] [id number] Traffic Officer: Kim Anderson MD, Phone: [phone] Performed By: #### C UU #### [facility] [address] [place] [address] [place] #### VAGINITIS+ #### [facility] , Tric Vag YUNIOR Negative Normal Negative [facility] Comment on above: Order Comment: Reaso n for Exam High risk bisexual behavior Performed By: #### C UU #### [facility] [address] [place] [address] [place] #### VAGINITIS+ #### [facility] , XR [...] Josué Erickson MD 11/15/19 Final result Normal [facility] Normal right femur x-rays. [place], [place] RIGHT FEMUR X-RAYS, 11/15/2019. HISTORY: Right hip and leg pain. COMPARISON: None. FINDINGS: AP and lateral views of the right femur were obtained. Bone mineralization is normal. Alignment is normal. There is no fracture. No dislocation. No degenerative changes. [place], [place] Sam, M[facility]pn Incoming Radiant Results From [employer] - 11/15/2019 6:01 PM EDT RIGHT FEMUR X-RAYS, 11/15/2019. HISTORY: Right hip and leg pain. COMPARISON: None. FINDINGS: AP and lateral views of the right femur were obtained. Bone mineralization is normal. Alignment is normal. There is no fracture. No dislocation. No degenerative changes. IMPRESSION: Normal right femur x-rays. [place], [place] ED Provider Noteon 9 Protein mass conc B [place] [facility] eMERGENCY dEPARTMENT eNCOUnter Pt Name: Maribel [...] the Claritin, Tessalon, increase fluids, rest. Take okpv-dkt-repunvc Tylenol or ibuprofen as if her pain. [...] Discharge 08/10/2018 10:34:25 AM PATIENT REFERRED TO: [facility] [address] [facility] [id number] Call As needed DISCHARGE MEDICATIONS: [...] Provider KARMEN Urrutia CNP 08/10/18 1037 Normal [facility] Vital Signs Date Time Vital Sign Value Performing Clinician Facility 02-13-2022 07:25-0400 Diastolic blood pressure 98 mm[Hg] Kevin Santoro [facility] 02-13-2022 07:25-0400 Systolic blood pressure 153 mm[Hg] [facility] 02-13-2022 06:20-0400 Body temperature 98.24 [degF] Kevin Santoro [facility] 02-13-2022 06:20-0400 Diastolic blood pressure 74 mm[Hg] [facility] 02-13-2022 06:20-0400 Heart rate 75 /min [email or web address] 02-13-2022 06:20-0400 Respiratory rate 20 /min Kevin Niupai [facility] 02-13-2022 06:20-0400 SaO2% (BldA) [Mass fraction] 98 % [email or web address] 02-13-2022 06:20-0400 Systolic blood pressure 119 mm[Hg] Kevin Santoro [facility] 10-19-2021 17:09-0400 Body temperature 98.96 [degF] Miko Kaur [facility] 10-19-2021 17:09-0400 Diastolic blood pressure 84 mm[Hg] Miko Kaur [facility] 10-19-2021 17:09-0400 Heart rate 89 /min Miko Kaur [facility] 10-19-2021 17:09-0400 Respiratory rate 17 /min Miko Kaur [facility] 10-19-2021 17:09-0400 SaO2% (BldA) [Mass fraction] 100 % Miok Kaur [facility] 10-19-2021 17:09-0400 Systolic blood pressure 138 mm[Hg] Miko Kaur [facility] 09-17-2021 15:00-0400 Body weight 61.69 kg Amy Tang Other [facility] [employer] Other 06-25-2021 15:15-0500 Body weight 62.6 kg Amy Tang Other [employer] Other 04-08-2021 14:50-0400 Body height 163.83 cm Maribel Randall Other [employer] Other 04-08-2021 14:50-0400 Body mass index (BMI) [Ratio] 24.84 kg/m2 Maribel Randall Other [employer] Other 04-08-2021 14:50-0400 Body temperature 98.2 [degF] Maribel Randall Other [employer] Other 04-08-2021 14:50-0400 Body weight 66.68 kg Maribel Randall Other [employer] Other 04-08-2021 14:50-0400 Diastolic blood pressure 80 mm[Hg] Maribel Randall Other [employer] Other 04-08-2021 14:50-0400 Respiratory rate 18 /min Maribel Randall Other [employer] Other 04-08-2021 14:50-0400 SaO2% (BldA) [Mass fraction] 100 % Maribel Randall Other [employer] Other 04-08-2021 14:50-0400 Systolic blood pressure 131 mm[Hg] Maribel Randall Other [employer] Other Encounters Encounter Date Encounter Type Care Provider Facility Start: 08-12-2023 End: 08-12-2023 ambulatory AMBREEN DAN Not Available Start: 07-10-2022 End: 07-10-[address] AMRIT VEE Facility:[facility] Start: 06-17-2022 End: 06-17-[address] JAYSON FIORE Facility:[facility] Start: 03-02-2022 End: 03-02-2022 ambulatory Lucia Thorne Facility:[facility] Start: 03-02-2022 End: 03-02-2022 Departed Referred MD Lucia Thorne Work Phone: [facility] Start: 02-13-2022 End: 02-13-2022 Emergency department patient visit Kevin Santoro [facility] Start: 02-03-2022 End: 02-03-2022 Patient encounter procedure CAITIE MARSHALL [facility] Start: 01-15-2022 End: 01-16-[address] NAIMA PEREZ Facility:[facility] Start: 10-19-2021 End: 10-19-2021 Emergency department patient visit Miko Kaur [facility] Start: 09-19-2021 End: 09-20-[address] NAIMA PEREZ Facility:[facility] Start: 09-17-2021 End: 09-17-2021 ambulatory Amy Tang Other [employer] Other Start: 09-17-2021 Office outpatient visit 15 minutes Amy Tang [facility] Start: 08-05-2021 End: 08-05-2021 ambulatory Amy Tang Facility:[facility] Start: 08-01-2021 End: 08-01-2021 ambulatory Amy Alvarengakes Other [employer] Other Start: 08-01-2021 Telephone encounter Amy Alvarengakes [facility] Start: 07-29-2021 Telephone encounter Amy Tang [facility] Start: 07-29-2021 End: 07-29-2021 ambulatory Amy Alvarengakes [facility] [employer] Other Start: 07-25-2021 End: 07-25-2021 ambulatory Amy Alvarengakes Facility:[facility] Start: 07-16-2021 End: 07-16-2021 ambulatory Amy L Hykes Facility:[facility] Start: 06-25-2021 End: 06-25-2021 ambulatory Amy Hykes Other [employer] Other Start: 06-25-2021 Office outpatient visit 25 minutes Amy Hykes [facility] Start: 04-08-2021 End: 04-08-2021 ambulatory Maribel Randall Facility:[facility] Start: 04-08-2021 Office outpatient visit 15 minutes Maribel Randall [facility] Start: 11-15-2019 End: 11-18-2019 Patient encounter procedure MICHAEL SMALLS [facility] Start: 11-15-2019 End: 11-17-2019 Subsequent hospital visit by physician Pauline Munoz Rad 1 [facility] Comment on above: Injury of right knee , initial encounter Start: 11-15-2019 End: 11-18-2019 Patient encounter procedure MICHAEL SMALLS [facility] Start: 11-15-2019 End: 11-17-2019 Subsequent hospital visit by physician Naima Perez [facility] Start: 08-10-2018 Emergency department patient visit UNKNOWN PROVIDER [facility] Procedures Date Procedure Procedure Detail Performing Clinician Start: 01-24-2020 Arthroscopy of knee Miko Kaur Start: 11-15-2019 Radiologic examinati on femur minimum 2 views SERINA Start: 11-15-2019 Radiologic examinati on femur minimum 2 views Michael Smalls Other Phone: Plan of Treatment Date Care Activity Detail Author Start: 02-13-2020 Influenza vaccination Flu vaccine (Season Ended) [place], [place] Start: 2018 Meningococcal (ACWY) vaccine (1 - 2-dose series) Meningococcal (ACWY) vaccine (1 - 2-dose series) [place] Start: 2018 Screening for Chlamydia trachomatis Chlamydia screen [place] Start: 2017 HIV screening HIV screen [place] Start: 2013 HPV vaccine (1 - 2-dose series) HPV vaccine (1 - 2-dose series) [place] Start: 2009 DTaP/Tdap/Td vaccine (1 - Tdap) DTaP/Tdap/Td vaccine (1 - Tdap) [place] Start: 2003 Hepatitis A vaccine (1 of 2 - 2-dose series) Hepatitis A vaccine (1 of 2 - 2-dose series) [place] Start: 2003 Measles,Mumps,Rubella (MMR) vaccine (1 of 2 - Standard series) Measles,Mumps,Rubella (MMR) vaccine (1 of 2 - Standard series) [place] Start: 2003 Varicella vaccine (1 of 2 - 2-dose childhood series) Varicella vaccine (1 of 2 - 2-dose childhood series) [place] Start: 2002 Polio vaccine (1 of 3 - 4-dose series) Polio vaccine (1 of 3 - 4-dose series) [place] Start: 2002 Hepatitis B vaccine (1 of 3 - 3-dose primary series) [place] Atopobium vaginae DN A [Presence] in Vaginal fluid by YUNIOR with probe detection [facility] Work Phone: Bacteria identified in Urine by Culture [facility] Bacterial vaginosis associated bacterium 2 DNA [Presence] in Vaginal fluid by YUNIOR with probe detection [facility] Work Phone: Megasphaera sp type 1 DNA [Presence] in Vaginal fluid by YUNIOR with probe detection [facility] Work Phone: Payers Date Payer Category Payer Self-pay [id number] 2018 Unknown [employer] xxxxxxxxxxx 2018-Present [phone] [address] [place] [address] xxxxxxxxxxx [id number] 2018 Unknown [id number] 2002 Unknown [id number] [id number] .593 2002 Unknown [id number] 2.16.840.1.021205.3.579.2 .593 2002 Unknown [id number] 2.16.840.1.296401.3.579.2 .593 2002 Unknown [id number] 2.16.840.1.955836.3.579.2 .593 1989 Unknown [id number] 2.16.840.1.454254.3.579.2 .174 1989 Unknown [id number] 2.16.840.1.570017.3.579.2 .174 1984 Unknown [id number] 2.16.840.1.115666.3.579.2 .668 1959 Medicaid [id number] Medicaid Private Health Insurance [facility] [id number] Unknown [id number] [id number] .531 Unknown [id number] 2.16.840.1.034971.3.579.2 .531 Unknown [id number] 2.16.840.1.264945.3.579.2 .531 Unknown [id number] 2.16.840.1.500500.3.579.2 .531 Unknown [id number] 2.16.840.1.015250.3.579.2 .531 Unknown [id number] 2.16.840.1.166243.3.579.2 .531 Social History Date Type Detail Facility Start: 08-10-2018 Tobacco smoking stat [facility] Never smoker [place], [place] Start: 08-10-2018 Alcohol intake 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 Diagnosis: Rectal bleeding [facility]09-02-2022 Hospital Discharge instructions Patient Education 02/13/2022 07:28:37 Rectal Bleeding, Gexa-hs-Vssa Rectal Bleeding Rectal bleeding is when blood [...] 02/10/2012 Document Revised: 05/13/2018 Document Reviewed: 07/26/2016 [employer] Patient Education 2020 [employer]. 02/13/2022 07:28:37 Hemorrhoids, Zsho-rz-Aahy Hemorrhoids Hemorrhoids are swollen veins that may [...] 3 times a day. General instructions Take rypr-peh-iqvsskn and prescription medicines only as told by [...] 03/09/2009 Document Revised: 06/08/2019 Document Reviewed: 10/20/2018 [employer] Patient Education 2020 [employer]. Follow Up Care 02/13/2022 06:18:09 With:Yu GREENE Address: [facility] [address] [place] [address]- Business (1) When:02/16/2022 07:21:18 With:CAITIE MARSHALL Address:Unknown When:Within 3 Day(s) [facility]05-08-2022 Hospital Discharge instructions Patient Education 10/19/2021 17:18:27 Viral Respiratory Infection, Zlsu-Up-Crrx Viral Respiratory Infection A viral respiratory infection [...] at home: Managing pain and congestion Take qmot-ghi-kaylaih and prescription medicines only as told by [...] and water are not available, use hand intercell connector placer. Avoid contact with people who are sick [...] 05/13/2009 Document Revised: 06/08/2019 Document Reviewed: 07/11/2018 [employer] Patient Education 2019 [employer]. Follow Up Care 10/19/2021 17:07:38 With:Michelle Mata Address:Unknown When:10/22/2021 [facility]04-06-2022 Evaluation note* Encounter Date Diagnosis Assessment Notes Treatment Notes Treatment Clinical Notes Sep, Rectal bleeding (ICD-10 - K62.5) PATIENT STATES THIS HAPPENS EVERY COUPLE OF MONTHS Sep, Abdominal pain (ICD-10 - R10.9) PATIENT DID HAVE THIS LAST NIGHT ON THE RIGHT SIDE UNDER HER RIBS PATIENT DOES CONTINUE ON THE MEDICATION WILL ORDER SOME TESTING 06 Apr, 2022 Diarrhea (ICD-10 - R19.7) [facility] [employer] Other 02-15-2022 Evaluation note* Encounter Date Diagnosis Assessment Notes Treatment Notes Treatment Clinical Notes Jul, Blood in stool (ICD-10 - K92.1) Jul, Abdominal pain (ICD-10 - R10.9) [facility] [employer] Other 01-12-2022 Evaluation note* Encounter Date Diagnosis Assessment Notes Treatment Notes Treatment Clinical Notes Jun, Diarrhea (ICD-10 - R19.7) Jun, Rectal bleeding (ICD-10 - K62.5) PATIENT ENCOURAGED TO HAVE A COLONOSCOPY START ABOVE MEDICATION Jun, Abdominal pain (ICD-10 - R10.9) [facility] [employer] Other 10-26-2021 Evaluation note* Encounter Date Diagnosis [...] up to a week to get back. [facility] [employer] Other Evaluation + Plan note No data available for this section [facility] [employer] Other Evaluation noteNo assessment information available [facility] Work Phone: Hisopxy general Narrative - Reported* Type Description Date Medical History IBS Medical History Constipation Medical History allergies Surgical History right torn lateral meniscus [facility] [employer] Other Hospital Discharge instructions No data available for this section [facility] No data available for this section [facility] Summary Purpose Family History No Family History Records Found Relationship Condition Age at Onset Recorded Date/T patrice grandparent Cardiovascular disease Unknown grandparent Malignant neoplasm of thyroid gland Unkno wn Not Specified Malignant neoplasm of ovary Unknown father Asthma Unknown brother Asthma Unknown Advance Directives No Advanced Directives Records FoundDocuments on File Type Date Recorded 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 DATE CREATED AUTHOR AUTHOR'S ORGANIZ ATION 03/14/2022 [facility] DATE CREATED AUTHOR AUTHOR'S ORGANIZ ATION 07/13/2022 [facility] DATE CREATED AUTHOR AUTHOR'S ORGANIZ ATION 08/15/2023 [facility] EPIC REASON FOR [...] BE BASED ON THE PRIMARY CLINICAL RECORDS. [facility]. provides no warranty or guarantee of the accuracy or completeness of information in this document.
[2024-01-06 14:35] LABS: Basophils Percent Auto 0.3 % (0.2-2.0); Eosinophils Percent Auto 0.3 % (0.9-7.0); Hematocrit 36.6 % (36.0-48.0); Hemoglobin 12.6 g/dL (12.0-16.0); Immature Granulocytes Abs Auto 0.02 10^3/uL (0.00-0.03); Immature Granulocytes Pct Auto 0.3 % (0.0-0.5); Lymphocytes Absolute Auto 1.8 10^3/uL (1.2-3.8); Lymphocytes Percent Auto 27.1 % (20.5-60.0); Mean Corpuscular HGB Conc 34.4 g/dL (29.9-35.2); Mean Corpuscular Hemoglobin 30.8 pg (26.7-34.0); Mean Corpuscular Volume 89.5 fL (81.0-99.0); Mean Platelet Volume 9.7 fL (9.5-13.5); Monocytes Absolute Auto 0.4 10^3/uL (0.3-0.8); Monocytes Percent Auto 5.9 % (1.7-12.0); Neutrophils Absolute Auto 4.4 10^3/uL (1.4-6.5); Neutrophils Percent Auto 66.1 % (43.0-75.0); Platelet Count 345 10^3/uL (150-450); Red Blood Count 4.09 10^6/uL (4.20-5.40); Red Cell Distribution Width 11.7 % (11.0-15.0); White Blood Count 6.7 10^3/uL (4.0-11.0)
[2024-01-06 15:17] LABS: Estimated Average Glucose 94 mg/dL; Glycohemoglobin A1C 4.9 % (4.5-6.2)
[2024-01-07 06:10] LABS: HBsAg Screen Negative (Negative); HCV Ab Non Reactive (Non Reactive); HIV Ab/p24 Ag Screen Non Reactive (Non Reactive); Rubella Antibodies, IgG 4.69 index (Immune >0.99)
[2024-01-07 12:10] LABS: Rapid Plasma Reagin, Quant Non Reactive titer (NonRea<1:1)
== END 2024-01-06 14:15 | disposition home or self-care (01) ==
LOC: LAB 14:14
PROVIDERS: Visit Provider Obstetrics & Gynecology
DX: N92.6 Irregular menstruation, unspecified (principal); Z36.0 Encounter for antenatal screening for chromosomal anomalies
CPT/HCPCS: 36415; 83036; 85025; 86592; 86762; 86803; 86850; 86900; 86901; 87086; 87340; 87389

== ENCOUNTER 2024-02-03 21:27 | Emergency (ER) | payer MEDICAID, SELFPAY ==
[2024-02-03 21:29] VITALS: BP 149/93; PULSE 106; TEMP 36.9; O2SAT 100; BMI 23.3
--- OUTSIDE RECORDS SUMMARY | 2024-02-03 21:40 | XMS_ITS | CCD ---
Author Organization [facility] [employer] [facility] Care Team Providers Care Inspection Clerk Name Role Phone PROVIDER, UNKNOWN Attending Unavailable PROVIDER, UNKNOWN Referring Unavailable [place], PCP Primary Care Unavailable Naima Perez Primary Care Provider UnavailMICHAEL Staley Referring Unavailab NAIMA Asif Primary Care Unavailable MICHAEL SMALLS Referring Unavailab NAIMA Asif Primary Care Unavailable NAIMA PEREZ Primary Care Physician Maribel Randall Unavailable Amy Tang Unavailable CAITIE MARSHALL Primary Care Physician CAITIE MARSHALL Primary Care Physician [phone] MD Lucai Thorne Attending Provider Lucia Thorne Admitting Unavailable Lucia Thorne Attending Unavailable NON STAFF Primary Care Unavailable Amy Tang Attending Unavailable Aym Tang Admitting Unavailable Naima Perez Primary Care Unavailable Amy Tang Attending Unavailable Naima Perez Primary Care Unavailable Amy Tang Admitting Unavailable Maribel Randall Admitting Unavailable Maribel Randall Attending Unavailable [facility] Primary Care Unavaila ble Amy Tang Attending Unavailable Naima Perez Primary Care Unavailable Amy Tang Admitting Unavailable Amy Tang Attending Unavailable Naima Perez Primary Care Unavailable Amy aTng Admitting Unavailable PAY, DR MARCUS Admitting Unavailable PAY, DR MACRUS Attending Unavailable PAY, DR MARCUS Consulting Unavailable JOSE G, DR NAIMA Joseph Primary Care Unavailable MEDHAT PEREZ Consulting Unavailable JOSE G, DR NAIMA Joseph Primary Care Unavailable AMY TANG JR Admitting Unavailable MIGUE, DR SUGAR Zhang Consulting Unavailable AMY TANG [...] TYLER Consulting Unavailable AMBREEN DAN Attending Unavailable KEITH JARRELL Attending Unavailable Allergies Allergy Classification Reported Allergen(s) Allergy Type Date of Onset Reaction(s) Facility (10 sources) Contrast media; 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: [red dye] Drug allergy 01-23-2017 [employer] Other Medications Current Medications Medication Drug Class(es) [...] for 7 day(s), 15 gm, Refill(s) 0, [facility]/pharmacy #[id number], 162, cm, 02/13/22 6:24:00 EDT, [...] Onset: 06-17-2022 Episodic Other aftercare (1 source) intermediate (current) use of hormonal contraceptives; 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: [SHELTER HORMONAL CONTRACEPTIVES] Onset: 06-18-2022 Episodic Other circulatory [...] S F Tetracycline >=16 R F Normal [facility] Comment on above: Performed By: #### U RCX #### [facility] [address] [address] [address] Venancio Soriano ER URINE PROFILEon 3 Bilirubin Ql (U) Negative Normal NEGATIVE [facility] Comment on above: Performed By: #### U MICRO, PREGU, ERUR #### [facility] [address] [address] [address] Venancio Soriano Clarity (U) CLEAR Normal CLEAR [facility] Comment on above: Performed By: #### U MICRO, PREGU, ERUR #### [facility] [address] [place] [address] Dr. Venancio Soriano Color (U) LT. YELLOW Normal YELLOW [facility] Comment on above: Performed By: #### U MICRO, PREGU, ERUR #### [facility] [address] [address] [address] Venancio FREEMAN A micrscopic examination will be performed if indicated. Normal [facility] Comment on above: Performed By: #### U MICRO, PREGU, ERUR #### [facility] [address] [address] [address] Venancio Soriano Glucose Ql (U) Negative Normal NEGATIVE [facility] Comment on above: Performed By: #### U MICRO, PREGU, ERUR #### [facility] [address] [address] [address] Venancio Soriano Hemoglobin Ql (U) TRACE-INTACT Abnormal NEGATIVE [facility] Comment on above: Performed By: #### U MICRO, PREGU, ERUR #### [facility] [address] [place] [address] Dr. Venancio Soriano Ketones Ql (U) Negative Normal NEGATIVE [facility] Comment on above: Performed By: #### U MICRO, PREGU, ERUR #### [facility] [address] [place] [address] Dr. Veanncio Soriano LEUKOCYTES SMALL Abnormal NEGATIVE [facility] Comment on above: Performed By: #### U MICRO, PREGU, ERUR #### [facility] [address] [address] [address] Venancio Soriano Nitrite Ql (U) Negative Normal NEGATIVE [facility] Comment on above: Performed By: #### U MICRO, PREGU, ERUR #### [facility] [address] [address] [address] Venancio Soriano pH (U) 6.0 [pH] Normal 5-9 [facility] Comment on above: Performed By: #### U MICRO, PREGU, ERUR #### [facility] [address] [address] [address] Venancio Soriano SPEC GRAVITY 1.025 Normal 1.005-<=1.02 5 [facility] Comment on above: Performed By: #### U MICRO, PREGU, ERUR #### [facility] [address] [address] [address] Venancio Soriano UA PROTEIN Negative Normal NEGATIVE/ TRACE [facility] Comment on above: Performed By: #### U MICRO, PREGU, ERUR #### [facility] [address] [address] [address] Venancio Soriano UR MICRO IND INDICATED Normal [facility] Comment on above: Performed By: #### U MICRO, PREGU, ERUR #### [facility] [address] [address] [address] Venancio Soriano Urobilinogen Qn (U) 0.2 {Erick'U}/dL Normal 0.2 - 1. 0 [facility] Comment on above: Performed By: #### U MICRO, PREGU, ERUR #### [facility] [address] [address] [address] Venancio Soriano URon 07-10-2022 , QUAL Negative Normal NEGATIVE [facility] Comment on above: Performed By: #### U MICRO, PREGU, ERUR #### [facility] [address] [address] [address] Venancio Soriano URINE MICROSCOPIC ONLYon 01- 27-2023 BACTERIA TRACE Abnormal NONE SEEN [facility] Comment on above: Performed By: #### U MICRO, PREGU, ERUR #### [facility] [address] [address] [address] Venancio Soriano Bacteria identified Cx Nom (U) INDICATED Normal [facility] Comment on above: Performed By: #### U MICRO, PREGU, ERUR #### [facility] [address] [address] [address] Venancio Soriano CAST NONE SEEN Normal NONE SEEN [facility] Comment on above: Performed By: #### U MICRO, PREGU, ERUR #### [facility] [address] [address] [address] Venancio Soriano Crystals LM Nom (Urine sed) NONE SEEN Normal NONE SEEN [facility] Comment on above: Performed By: #### U MICRO, PREGU, ERUR #### [facility] [address] [place] [address] Dr. Venancio Soriano Epithelial cells LM Ql (Urine sed) RARE Normal NONE SEEN /RARE [facility] Comment on above: Performed By: #### U MICRO, PREGU, ERUR #### [facility] [address] [address] [address] Venancio Soriano MUCOUS NONE SEEN Normal NONE SEEN [facility] Comment on above: Performed By: #### U MICRO, PREGU, ERUR #### [facility] [address] [address] [address] Venancio Soriano RBC 0-2 Normal 0-2 [facility] Comment on above: Performed By: #### U MICRO, PREGU, ERUR #### [facility] [address] [address] [address] Venancio Soriano WBC 5-10 Abnormal NONE SEEN [facility] Comment on above: Performed By: #### U MICRO, PREGU, ERUR #### [facility] [address] [address] [address] Venancio Soriano Urine Cultureon 03-02-2022 Bacteria identified Cx Nom (U) Reason for Exam Dysuria Urine No Growth 2 Days PERFORMED BY: [facility] [address] [place] [address] PATHOLOGIST CIVIL ENGINEER LAND DEVELOPMENT EDDIE CORTÉS M.D. Normal [facility] Comment on above: Performed By: #### V AGINITIS+ #### [facility] , #### CUU #### [facility] [address] [place] [address] Vaginitis Plus (VG+)on 03-02 Atopobium Vaginae Moderate - 1 Normal . [facility] Comment on above: Order Comment: Reaso n for Exam Vaginal odor Performed By: #### V AGINITIS+ #### [facility] , #### CUU #### [facility] [address] [place] [address] BVAB2 Low - 0 Normal . [facility] Comment on above: Order Comment: Reaso n for Exam Vaginal odor Performed By: #### V AGINITIS+ #### [facility] , #### CUU #### [address] Makayla Albicans, YUNIOR Negative Normal Negative [facility] Comment on above: Order Comment: Reaso n for Exam Vaginal odor Result Comment: This test was developed and its performance characteristics determined by [facility]. It has not been cleared or approved by the Food and Drug Administration. Performed By: #### V AGINITIS+ #### [facility] , #### CUU #### [facility] [address] [place] [address] Makayla Glabrata, YUNIOR Negative Normal Negative [facility] Comment on above: Order Comment: Reaso n for Exam Vaginal odor Result Comment: This test was developed and its performance characteristics determined by [facility]. It has not been cleared or approved by the Food and Drug Administration. PERFORMED BY: [place] [address] PATHOLOGIST CIVIL ENGINEER LAND DEVELOPMENT EDDIE CORTÉS M.D. Performed By: #### V AGINITIS+ #### [facility] , #### CUU #### [facility] [address] Chlamydia Trachomotis, YUNIOR Negative Normal Negative [facility] Comment on above: Order Comment: Reaso n for Exam Vaginal odor Performed By: #### V AGINITIS+ #### [facility] , #### CUU #### [address] Megasphaera Low - 0 Normal . [facility] Comment on above: Order Comment: Reaso n [...] developed and its performance characteristics determined by [facility]. It has not been cleared or approved by the Food and Drug Administration. Performed By: #### V AGINITIS+ #### [facility] , #### CUU #### [address] Neisseria Gonorrhoeae, YUNIOR Negative Normal Negative [facility] Comment on above: Order Comment: Reaso n for Exam Vaginal odor Result Comment: Perf ormed at: =G - [facility] [address] [id number] Skiving Machine Operator: Kim Anderson MD, Phone: [phone] Performed By: #### V AGINITIS+ #### [facility] , #### CUU #### [address] Tric Vag YUNIOR Negative Normal Negative [facility] Comment on above: Order Comment: Reaso n for Exam Vaginal odor Performed By: #### V AGINITIS+ #### [facility] , #### CUU #### [address] Coding Summary.on 02-17-2022 Coding Summary. CD:[id number] Gh0bWw+PGhlYWQ+PE1FV BUgA24esJVcdA8PR5cLC E7GHXOKLWGRSB0STH7sa ZO1EPrwR3ZyrnZc OxxnmMVbDV76GMw5ATD4 lOacSAmqvV7vfTDdK7j7 SxGfVA40dW10NAdrQHCh LmA8KhQithsivLUa H0dzSdUfoVEuKtj+PHRh YmxlIHdpZHRoPScxMDAl UkZdfYweTO7aVw5pSJXs LWNvbGxhcHNlOiBj l5ycETXjKNyjCG3uvFok O9PbgUI4PBCkp8m9Kr58 dHI+LCTtFZO8pUxoTZmo z977GcWfr6ruATK4 kDMxGKpmPNQ6D47qn4Z2 SUIcQPNgEOR6aQY7jA7v gGozoaczH7WnaFNoDjI3 WEM8aNCspH6cdUrp jnfjmM6wSti+I58UXY5Y TYTNDA8WZuf7L7NqHeaz dHI+TD41ELKjJU80eJTt qNBig3bcvHe6XrFa SXXyZNU7yXaoREubt5Xg PRMmB04meLHvt1F0VBMi lLrwuAWeZkVzlZE9gY2c LEjzgfwnt3eoipma Rkyhy7bmvt13hC84P07g RRauYISbXFY3PJLtEWBk lMqawv1vdP9gGz8+IDxj v5erx2pibYx7KdTf XKBjvtFlbSydRGW3o1Mp Nk58Z4TsaUhyx4JbHnx8 zt44cCBat1G0kAO4JIds GZFblZ5tHVwwJxT5 EWDsFwIvdR82aPGvBTuy Yo8xyTxfkGsoTC4qDVFk olteDMGqrP4hCJPbeCXc eIziKC1kVRLwmdje a599JjGtZKF9IXZhwCVe W1FvpF8pQwWfPGEnYIKr H0SwtRNbGGdvJ525HIum QwN1TCZntbDfR9Ht TOFizCahNvZ7a9T6No8J w5OjnlteUXW2LExuCZB8 QlW8XiHzUyM6Q7WbBqd1 UXDooHkeEU7uV9Pr VVGvgsrmeugnpIM7OUHy ZPSfhL55wRMaKOohSc6c g7W7h397GBCfMDDwxV36 Dc4ndMdlWNTbeMLX wW7mkzehu5oasfnyEqQo AUUrFIl2SWs1AYZhiPkz EzBsUDB7LpV2NRV9hSVv oG2plBpwgmoxtR0w Oyc+M51hiS6eNWM6XMS2 tcekWIKmqzXkNB51OB84 F1UzRfoyyJFaxMS+PGRp gyRnfCqlML9uGcPx l9fel9BnUUraL2PjUQIt SVheIem0WWXqKEM3dQM8 hK8iARAiPYajw4L1rKW4 D4NdglNzql7mv1pc CQUmORjwC47ldGCxr4R4 JCEuqHM0OADasJxdQeCs hQ04Msb+JYLorMrrb7Dz Oxich2kdo3ntrYy0 IjMwJSIgdmFsaWduPSJ0 s3NjEz51O86yBLtpOVEn CRCiTTGyPGOgjRprtw5w hQ1rNa8+PGNvbCB3 xAU8tV3wQIRpNaB3TQps D019WzLzkTMxCrxwb7np v0eiaGh7CqIjAIHrywWh bBkaQMO5x4ZoHa97 T98vCIrrPQSjHOXmJGCi WCUjtDwvxn1xzR0iPx5+ NW4gy6bjzc90mJ20wSZ+ TKHwBFG5fIwhWIhu BIJcwL5mXJmnVbN0LLJb FuTzrN86lWUqTZylVh9l cUuuaKcoEX2qSFPzvilw r405NuZkf2qnBPRq tMMxXKmbLKD6Y84mv9M1 HNWsTZZsIBS6yJF1vW2g bGlnbjogbGVmdDsgdmVy dDzhLJkgNNfnY276 IHRvcDsnPlBhdGllbnQg OrTeLTh0D6EvXnw9QJFq bAisYK0elCGoSLriVr2s oNjvlAynWI4cCRRx uyyxu141DhVoe0koIQIj tMPlESobZQP1Z13pg4L4 JTOrLJNjPPT9cRS2rC4t bGlnbjogbGVmdDsg wdAylNamKFrzSWgpU707 IHRvcDsnPkJpcnRoIERh yAL9BO15SF94wBAgi3C0 eYB7W4HmGGAkbifj gdpjjCS0DCZbGTRwgB24 Oz9gdNdlQy8bOFJmUYJ6 OAHgePXbM0XqyF5bYqOe SRVnZTTwG6VvsPCh OZuzH807TKbyWfT3KQEc nlYpL5BrKGKacMhrOzX3 h7X0Ky6KM9V0PU89ZM58 sCQty8V2mWI8T3Ic OSRaenixkgkgjFC1MSBm GZQcgS58Fz9vpRmqOe4y WGTqAFV4RIKscPPhV2Al qM9fNxZxSEXlKDXm H0RqfLYxOIbrE670NCdq WhG8ZPZmisMfS3SdBZDh kOtxBqG9u3Y0Vq9NNWv5 NH91XQ24iPCnn3U9 iOL0B7LbXGUmmojtolec fNW6HWGvFXTzuQ22Bm7k rAeyWq3lXYMbYYC8JJDi gIKbP6ImwO9vLkMb ZLAyTCXpE7KvhACvWJfr L506TCsfWeG7EMRjuyOr H7SrHURptZraGcU1t0B2 Qh0GVGEqKA90WBC6 mID6EF36LP98D1OfDuxj dGFibGU+PHRhYmxlIHdp ZHRoPScxMDAlJyBzdHls MF7eGi5gWCYvWIHh jAfrnOFsZuSmm9tmAYRv XPvmCG4qjQfpK6UfwYE6 ANKba8a3Eu59E87wM9Sk dXA+YVXurGF4sAN7 xI9xBfKfBxW8FOpjG395 XmAelBGyJwejb5are7ad iAe6GqL0PAZtxpLrzGpm JRL7w6AbFl07L38j IHdpZHRoPSIxNSUiIHZh hOkkgi0itZ7lQr3+PGNv rTA0lIB3dQ7cOtDrCiV7 MTaxU390IvKgwIGb Yggwu9eyh1qawFn7ExCp VFVvldNxdLneMPY6h8Lz Bz09U7UwdJiqf4HlCrd3 pi71dVYiq5C8uSN5 Y6UgYKSartjusLPpbZnf EJ1qWXWcocqlPRRroY0b TSZhG8h8ZlNuXbQ7AYhc Y6AatzK8PXHbcDRy KYosYQI2Q87je1Z2WHHa WUEqZCP4vJS9vC7qnYes bjogbGVmdDsgdmVydGlj NPbyASolB692WXOt xVlbABAwuP6lNFDibCXg bNvfFA7xHZWmbsrqLnGA EAwAVMzsR8ZNZItESrqS DJ19IS31yVZmj3L9 rQO1H5RyIQXgutocedyw jCG6LAJtXOHnrA23jAXn KFwzRg4um2K9b553FJXx VJPwnT21Dp4okWum VFVgrRAPfX2lhbqjy6mi ljyaVvHiJMWvWJf4LNe4 NUQepJspPzXwSWS8EqT8 KSU1rQWkkI1fwNko mwksdZ2zAsw+MDIvMTkv MjAwMzwvdGQ+PHRkIHN0 jYvoBRjaZCEbyI9gIZMv D1v7FxIdKzM1UYaw H4WqKVQvnayeSj20eJ5r XyYqZeE3MNxgR5PikwP8 XFAhyLEjOIlbLNT3W33d r5A3ESInBZMdDUK8 fNN2hE6ttRqdxpxjaNVo dDsgdmVydGljYWwtYWxp M477GCTjgWreOlF9QYse CRAlNN92FP39lLYk u4Y1xOK1A9GqIARwvaun znnlnWP6CWIpKNYhlD64 oZFpGCbhEv6lh5J1i588 ZPNhWUHkxR86Kf6a jXxrCXWdzFGTlJ6ikmzs j2xtjbdaIpYpOOAtVLr9 ASt3NATbtAdbNmDaNIP9 PbS6SHI7eHUyqC0s iBiaeebxmH3mBdr+RmVt ZCpxHC26IV34qYOgo2H5 hDD6M4PsLFHimiqxhrnt bFQ1BZLhCUUmbY43 bGKbBPcnAm5sk2Z1g423 XBWlMUKiiL16Qq4pwOxj CXQpkHLHpD8wtrnaa5be cjogIzAwMDAwMDt0 AZd1ITPsjFfpMyXsTXK3 KfA5BYB2iOJtjB6fzHvz jprvgJ0pHyq+EF7wsmup scZ5CD78NF13T8Gn PjwvdGFibGU+PHRhYmxl IHdpZHRoPScxMDAlJyBz dMuzKN7oUi8uTMCpKEMd dDkzpAPfCkGds1hb WOVmGPojBA8xoJiiC6In mVZ0WQNzg3b9Iu35H77y H1OwcTT+YVVaoLI4wAX2 fZ8rQtHjPuA5THzo R672IeVdzKFrJoasl5bq p3zwtWl7CxByVEGtogMe pQznHLZ4x8HzPy22I27o IHdpZHRoPSIyMCUi JTCytZzovw0xzQ7rWy3+ SKHuuGU5rNK8kZ3wJtTn WlT9MEigP001WuHanPSw TlztC14rV8XheGP+ SQCuRow5CJVflUcgGH1f rUMvJVdcAs7yKVQ5VrKl VhBvYCleE5McRHHyyylw sfafaGH7DOEhAOMh eF26Np2vdRviCy3xLQJq PQB1TNXlgVFyY2MicM7r OwUyIEQaLMTxV3VsaLIa DXlyN234QBhaWfZ8 HKVxnnMsV1YaNHLpzEuh AfQ4s8M2Kd1YkYrfpZIg AI0oVvWjNUy5N4DnBvh2 RQXrpQijVD7eyQFi WCisOo7lwVyyzZsaGE9z PMWpsndtl330KsBdw7jv JKUlaRUiMOrwWEZ6Q11r h2M6IVEvAPFoYED0 eGL0vQ1alYrtzcgxvDRm dDsgdmVydGljYWwtYWxp Y073LGHmeVwhRsQLQks6 M2WaMbc7RIBvcRrd IA4whTHhTMlkLx1akKuq kOtvKO4vHXEmrtdat949 KmScg4xcMVMprDCpXCmp PJR6J19wl1A0GJWl TEPePSQ3lVO7uK3tzKgu bjogbGVmdDsgdmVydGlj SXzoIBxwX609HHFudTyw Ar1CGgs2O5BxMhw8 ONYcxUfaXV6pcSEpOLvh Py8gdEneyWzkEB7zKPTn hkqwb631FuKmz2rbPFXq pRDlZXtvNPC3W60i g9Y4VRWjWCSaALK0kEL1 bX4dgAvmcudjzUTjvSik neTifQpjRNarBQkjJ106 IHRvcDsnPlBheWVy OjwvdGQ+FR49ol87Y9If AsxkZam2HTKpTHQ0fWX1 kR6hCDQiPIpxr2T4pXZ5 O1MmntYcmk9ej5xu YXBz (more content not included)... Normal [facility] Auto Diffon 02-13-2022 Basophils/100 WBC (Bld) 0.9 % Normal 0.0-2.0 [facility] Comment on above: Order Comment: Order Added by Discern Expert. Performed By: #### 2 577272, 7393038, 95797535, 1567091, [id number] ####[address] [address] Basophils/Leukocytes Auto (Bld) [Pure # fraction] 0.1 E9/L Normal 0.0-0.2 [facility] Comment on above: Order Comment: Order Added by Discern Expert. Performed By: #### 2 222308, 4383508, 82657415, 4377350, [id number] ####[address] [address] Eosinophils/100 WBC (Bld) 0.6 % Normal 0.0-8.0 [facility] Comment on above: Order Comment: Order Added by Discern Expert. Performed By: #### 2 143253, 4701854, 22151712, 8176666, [id number] ####[address] [address] Eosinophils/Leukocyte s Auto (Bld) [Pure # fraction] 0.0 E9/L Normal 0.0-0.5 [facility] Comment on above: Order Comment: Order Added by Discern Expert. Performed By: #### 2 076789, 4107774, 20213743, 3526671, 18669219 ####[address] [place] [address] Lymphocytes/100 WBC (Bld) 46.4 % Normal 14.0-50.0 [facility] Comment on above: Order Comment: Order Added by Madeleine Expert. Performed By: #### 2 516569, 1838302, 00439593, 1357328, 71151455 ####[address] [place] [address] Lymphocytes/Leukocyte s Auto (Bld) [Pure # fraction] 3.1 E9/L Normal 1.0-4.0 [facility] Comment on above: Order Comment: Order Added by Discern Expert. Performed By: #### 2 118536, 0619156, 65711419, 4121561, 42879545 ####[address] [place] [address] Monocytes/100 WBC (Bld) 8.2 % Normal 4.0-14.0 [facility] Comment on above: Order Comment: Order Added by Madeleine Expert. Performed By: #### 2 055943, 9690701, 64162072, 8049963, 28924002 ####[address] [address] Monocytes/Leukocytes Auto (Bld) [Pure # fraction] 0.6 E9/L Normal 0.2-1.0 [facility] Comment on above: Order Comment: Order Added by Madeleine Expert. Performed By: #### 2 310707, 5982018, 60819124, 9138839, 00600740 ####[address] [address] Neutrophils/100 WBC (Bld) 43.9 % Normal 36.0-75.0 [facility] Comment on above: Order Comment: Order Added by Madeleine Expert. Performed By: #### 2 606051, 1255985, 14157541, 4701145, 64364723 ####[address] [address] Neutrophils/Leukocyte s Auto (Bld) [Pure # fraction] 3.0 E9/L Normal 2.0-7.5 [facility] Comment on above: Order Comment: Order Added by Madeleine Expert. Performed By: #### 2 424648, 8185762, 61949038, 2456877, [id number] ####[facility] [id number] [place] [address] BB Draw & Holdon 02-13-2022 BB D&H Sample drawn for Blood Ba Normal [facility] Comment on above: Performed By: #### 2 330734, 9227974, 57835168, 8662079, 40679255 ####[facility] [address] [place] [address] CBC w/ Auto Diffon Erythrocyte distribution width (RBC) [Ratio] 13.3 % Normal 10.9-14.2 [facility] Comment on above: Performed By: #### 2 867400, 9109268, 43638144, 9434978, 44106832 ####[facility] [address] [place] [address] Hematocrit (Bld) [Volume fraction] 34.1 % Normal 34.0-46.0 [facility] Comment on above: Performed By: #### 2 801230, 6722680, 34280425, 2950463, 63514193 ####[facility] [address] [place] [address] Hemoglobin (Bld) [Mass/Vol] 11.7 g/dL Low 12.0-16.0 [facility] Comment on above: Performed By: #### 2 513292, 6122891, 39417698, 5131758, 64320310 ####[facility] [address] [place] [address] MCH (RBC) [Entitic mass] 29.9 pg Normal 27.0-34.0 [facility] Comment on above: Performed By: #### 2 168949, 9981262, 43777200, 5397626, 79904536 ####[address] [address] MCHC (RBC) [Mass/Vol] 34.4 g/dL Normal 31.4-36.0 [facility] Comment on above: Performed By: #### 2 641205, 0303509, 05915191, 3411761, 17012613 ####[facility] [address] [place] [address] MCV (RBC) [Entitic vol] 86.8 fL Normal 80.0-100.0 [facility] Comment on above: Performed By: #### 2 693292, 4565206, 90207362, 4039114, 80561757 ####[address] [place] [address] Platelet mean volume (Bld) [Entitic vol] 7.9 fL Normal 6.4-10.8 [facility] Comment on above: Performed By: #### 2 377494, 1994287, 83214240, 9294505, 03622858 ####[address] [address] Platelets (Bld) [#/Vol] 329.0 E9/L Normal 150.0-500.0 [facility] Comment on above: Performed By: #### 2 718923, 2031849, 67273221, 2999462, [id number] ####[address] [address] RBC (Bld) [#/Vol] 3.9 E12/L Low 4.3-5.9 [facility] Comment on above: Performed By: #### 2 505538, 9207929, [id number], 3626512, 87075875 ####[address] [address] WBC corrected for nucl RBC Auto (Bld) [#/Vol] 6.7 E9/L Normal 4.0-11.0 [facility] Comment on above: Performed By: #### 2 280882, 6998203, 15360160, 3259262, 76674423 ####[address] [place] [address] CHEMISTRYOrdered By: SYSTEM SYSTEM on 02-13-2022 Albumin [Mass/Vol] 4.3 g/dL Normal 3.3 - 5.0 gm/dL [facility] [place] Remisol Albumin/Globulin [Mass ratio] 1.3 {ratio} [...] mg/dL Normal 8.9 - 11. 1 mg/dL [facility] Chloride [Moles/Vol] 107 mmol/L Normal 101 - 1 11 mmol/L [facility] Remisol CO2 [Moles/Vol] 23 mmol/L Normal 21 - 31 mmol/L [facility] Remisol Creatinine [Mass/Vol] 0.4 mg/dL Low 0.5 - 1.3 mg/dL [facility] Remisol GFR/1.73 sq M.predicted among blacks MDRD (S/P/Bld) [Vol rate/Area] mL/min/1.73 m2 Normal >=59mL/min/1 .73 m2 [facility] [place] Chem S GFR/1.73 sq M.predicted among non-blacks MDRD (S/P/Bld) [Vol rate/Area] mL/min/1.73 m2 Normal >=59mL/min/1 .73 m2 [facility] [place] Chem S Globulin (S) [Mass/Vol] 3.2 g/dL Normal 1.4 - 4.0 gm/dL [facility] Remisol Glucose [Mass/Vol] 87 mg/dL Normal 55 - 199 mg/dL [facility] Remisol Potassium [Moles/Vol] 3.8 mmol/L Normal 3.5 - 5.3 mmol/L [facility] Remisol Protein [Mass/Vol] 7.5 g/dL Normal 6.0 - 7.8 gm/dL [facility] Remisol Sodium [Moles/Vol] 136 mmol/L Normal 135 - 145 mmol/L [facility] Remisol Urea nitrogen [Mass/Vol] 14 mg/dL Normal 5 - 21 mg/dL [facility] [place] Remisol Urea nitrogen/Creatinine [Mass ratio] 35 mg/mg High 10 - 20 [facility] [place] Remisol CMPon 02-13-2022 Albumin [Mass/Vol] 4.3 g/dL Normal 3.3-5.0 [facility] Comment on above: Performed By: #### 2 998103, 4623177, 17573579, 1454325, [id number] ####[facility] [address] [place] [address] Albumin/Globulin (S) [Mass conc ratio] 1.3 Normal 1.1-2.2 [facility] Comment on above: Performed By: #### 2 520487, 0688131, 45840054, 8960487, 86057946 ####[facility] [address] [place] [address] ALP [Catalytic activity/Vol] 55 Int._Unit/L Normal 21-98 [facility] Comment on above: Performed By: #### 2 560761, 8769036, 08648401, 4059505, 76250133 ####[facility] [address] [place] [address] ALT No additional P-5'-P [Catalytic activity/Vol] 12 Int._Unit/L Normal 6-46 [facility] Comment on above: Performed By: #### 2 625141, 8100536, 37714731, 9441298, [id number] ####[facility] [address] [place] [address] AST [Catalytic activity/Vol] 15 Int._Unit/L Normal 5-43 [facility] Comment on above: Performed By: #### 2 675067, 3321477, 16817767, 7761777, 90712290 ####[facility] [address] [place] [address] Bilirubin [Mass/Vol] 0.4 mg/dL Normal 0.0-1.1 [facility] Comment on above: Performed By: #### 2 522171, 1326156, 56127592, 0714632, [id number] ####[facility] [address] [place] [address] Creatinine [Mass/Vol] 0.4 mg/dL Low 0.5-1.3 [facility] Comment on above: Performed By: #### 2 283622, 6589180, 04739064, 9677564, [id number] ####[facility] [address] [place] [address] Globulin (S) [Mass/Vol] 3.2 g/dL Normal 1.4-4.0 [facility] Comment on above: Performed By: #### 2 713670, 9240838, [id number], [id number], [id number] ####[facility] [address] [place] [address] Protein [Mass/Vol] 7.5 g/dL Normal 6.0-7.8 [facility] Comment on above: Performed By: #### 2 999542, 8087949, 68229642, 1379339, [id number] ####[facility] [address] [place] [address] Urea nitrogen [Mass/Vol] 14 mg/dL Normal 5-21 [facility] Comment on above: Performed By: #### 2 952119, 0701796, 02075329, 2817694, 37442106 ####[facility] [address] [place] [address] Urea nitrogen/Creatinine [Mass ratio] 35 No Units High 10-20 [facility] Comment on above: Performed By: #### 2 446932, 8222344, 51320591, 4064904, [id number] ####[facility] [address] [place] [address] Anion gap [Moles/Vol] 10 mmol/L Normal 6-16 [facility] Comment on above: Performed By: #### 2 522362, 5951422, 68289938, 7099122, 12101124 ####[facility] [address] [facility] [place] [address] Calcium [Mass/Vol] 9.2 mg/dL Normal 8.9-11.1 [facility] Comment on above: Performed By: #### 2 794828, 6508051, 46789738, 4592261, 99235496 ####[facility] [address] [facility] [facility] [place] [place] [address] Chloride [Moles/Vol] 107 mmol/L Normal 101-111 [facility] Comment on above: Performed By: #### 2 362922, 9691204, 86235467, 7340467, 12720590 ####[facility] [address] [place] [address] CO2 [Moles/Vol] 23 mmol/L Normal 21-31 [facility] Comment on above: Performed By: #### 2 313202, 9430747, 83331320, 2924830, 32626046 ####[facility] [address] [facility] [address] Glucose [Mass/Vol] 87 mg/dL Normal 55-199 [facility] Comment on above: Result Comment: If t his glucose result represents a fasting glucose, interpretation should refer to the following reference range: 55-99 mg/dL Performed By: #### 2 999333, 0219219, 03582262, 9038109, 32990961 ####[facility] [address] [place] [address] Potassium [Moles/Vol] 3.8 mmol/L Normal 3.5-5.3 [facility] Comment on above: Performed By: #### 2 548734, 4412288, 54284708, 5940526, 72149459 ####[facility] [address] [place] [address] Sodium [Moles/Vol] 136 mmol/L Normal 135-145 [facility] Comment on above: Performed By: #### 2 826487, 3418602, 23184311, 0411927, 86093580 ####[facility] [address] [place] [address] Consent for Treatmenton Consent for Treatment [id number] 20 [id number] #1.00CD:127 Normal [facility] Discharge Instructionson Discharge Instructions [id number]# 1.00CD:127 Normal [facility] ED Clinical Summaryon 2021 ED Clinical Summary [address] [address] ED Clinical Summary Person Information Name: MARIBEL VELEZ/[place] Age: 21 Years : 2000 Sex: Female Language: Kyrgyz PCP: CAITIE MARSHALL CNP Marital Status: Single [...] 02/13/2022 07:28:36 02/13/2022 07:28:36 02/13/2022 07:28:36 ADDRESS: [address] [facility] [id number] PHYS DOC NOTES: Addendum by Kevin Santoro DO on February 13, 2022 07:22:06 EDT MEDICAL INFORMATION: Prescriptions Given: New Medications [id number], [address] [place], [place] [id number], [phone] pramoxine topical (ProctoFoam 1% Foam) apply By rectum 2 times a day for 7 Days. Refills: 0. Medications to Continue with No Changes Other Medications ethinyl estradiol-norgestima te (Sprintec oral tablet) Ib By Mouth every day. ibuprofen (ibuprofen 600 mg Tab) 1 Tablets By Mouth every 6 hours as needed as needed for pain. PATIENT EDUCATION INFORMATION: Instructions: Rectal Bleeding, Zjdj-ss-Uxgd; Hemorrhoids, Tynn-do-Dodo Follow up: With: Address: When: [facility], [address], [place] [address] Business (1) In 3 days 02/16/2022 With: Address: When: CAITIE MARSHALL In 3 days DIAGNOSIS: Acute hemorrhoid Normal [facility] ED Note-Physicianon 02-14-20 ED Note-Physician Basic [...] change or worsen. Diagnosis: Rectal bleeding Normal [facility] Comment on above: Result Comment: Elec tronically Signed By: Kevin Santoro DO\.br\Date and Time Signed: 02/13/22 07:23 EDT ED [...] 02/10/2012 Document Revised: 05/13/2018 Document Reviewed: 07/26/2016 [employer] Patient Education ? 2020 [employer]. Hemorrhoids Hemorrhoids are swollen veins that may [...] times a day. General instructions ? Take ibtj-zso-hopxqrx and prescription medicines only (more content not included)... Normal [facility] ED Patient Summaryon 022 ED Patient Summary [place] [id number] Patient Discharge Instructions Person Information Name: MARIBEL VELEZ Age: 21 Years Arrival Date: 02/13/2022 06:16:54 Discharge Diagnosis: Acute hemorrhoid Primary Care Physician: CAITIE MARSHALL CNP Provider Information Primary Provider: Ana Braxton DO Advanced Maintenance Team Leader:None The exam and treatment you received in the Emergency Department were for an urgent problem and are not intended as complete care. It is important that you follow up with a doctor, nurse practitioner, or physician?s dental ceramist assistant for ongoing care. If your symptoms become worse or you do not improve as expected and you are unable to reach your usual health care provider, you should return to the Emergency Department. We are available 24 hours a day. AMRIBEL VELEZ has been given the following list of patient education materials, prescriptions and follow-up instructions: Follow-up Instructions: With: Address: When: [facility], [address] [place] [address] Business (1) In 3 days 02/16/2022 With: Address: When: CAITIE MARSHALL In 3 days In the event that this physician does not participate in your insurance network, please consult with your insurance company to find a nearby participating provider. Patient Education Materials: Rectal Bleeding, Unql-hp-Hbyn; Hemorrhoids, Rqtk-eq-Xfug A MESSAGE TO ALL PATIENTS REGARDING OPIOIDS PRESCRIPTION OPIOIDS: WHAT YOU NEED TO KNOW Prescription opioids can be used to help relieve xkiatzjl-ln-qessgn pain and are often prescribed following a [...] care professi (more content not included)... Normal [facility] HEMATOLOGYOrdered By: SYSTEM SYSTEM on 02-13-2022 Basophils/100 WBC (Bld) 0.9 % Normal 0.0 - 2.0 % [facility] HemeAutoSS Basophils/Leukocytes Auto (Bld) [Pure # fraction] 0.1 E9/L Normal 0.0 - 0.2 E9/L [facility] HemeAutoSS Eosinophils/100 WBC (Bld) 0.6 % Normal 0.0 - 8.0 % [facility] HemeAutoSS Eosinophils/Leukocyte s Auto (Bld) [Pure # fraction] 0.0 E9/L Normal 0.0 - 0.5 E9/L [facility] HemeAutoSS Lymphocytes/100 WBC (Bld) 46.4 % Normal 14.0 - 50.0 % [facility] HemeAutoSS Lymphocytes/Leukocyte s Auto (Bld) [Pure # [...] 34.1 % Normal 34.0 - 46.0 % [facility] HemeAutoSS Hemoglobin (Bld) [Mass/Vol] 11.7 g/dL Low [...] MDRD (S/P/Bld) [Vol rate/Area] mL/min/{1.73_m2} Normal >=59 [facility] Comment on above: Order Comment: Order added by Discern Expert. Result Comment: eGFR is race adjusted. AA=. Performed By: #### 2 806985, 3506227, 66923745, 8698348, [id number] ####[facility] [address] [place] [address] GFR/1.73 sq M.predicted among non-blacks MDRD (S/P/Bld) [Vol rate/Area] mL/min/{1.73_m2} Normal >=59 [facility] Comment on above: Order Comment: Order added by Discern Expert. Result Comment: Training Generalist linwood kidney disease could be indicated at eGFR's of less than 60 mL/min/1.73m2. Kidney failure is indicated at less than 15 mL/min/1.73m2. Performed By: #### 2 575933, 7880564, 26890711, 0381875, [id number] ####[facility] [address] [place] [address] Coding Summary.on 02-06-2022 Coding Summary. CD:[id number] Gh0bWw+PGhlYWQ+PE1FV OUhE85biJXuhQ7JA6sAM B8WQBUUPTZYWW5KTD2sl LA0BOivX9DktaSc KllrmWNjHU71BTc5UEK3 dDkuXHbuuK4txIAnE9y6 KxRlUG16pT90DOkpHGYt VrT7RvKfbzlrqLPe T2hcPrXvnSKxFol+PHRh YmxlIHdpZHRoPScxMDAl VmIguNbeWD4fWy3iIBCv LWNvbGxhcHNlOiBj z6quIIGfAIjgZV1peNii R4EowEX8AHIac8z9Pc44 dHI+KGVvHNB4cSxmFGpb y314YgMfm9drGPX4 uCWwQYurTWZ0Q48yg3G8 NNDaVICaAYY9fYO5hQ0k wUwocxroV8DxjBGaYiY4 JCC1uBMxwS1dbKha uywkiB9vBwp+Z41ISJ5C JEOMPX7ZUpk1H1VxZmti dHI+SH00AFJtWX73xUUp iXGxl1izfRp2EcDi NPTrOLP8pCabOCjng0Mi VMDcO34rzRUpc1H3BOXf iRhatAAqLsHvhGL9zN8y LLntjhfyf3pnklnv Mvfbn1ywhb44rN23Y67x NDfrUNJmHUI2RGTpZRUe oUwltb4fvZ2wIv6+IDxj m5spy2haaWi2SvDq YFAoyuTokBhwOJM3p5Nb Dt92E6BsaSzax5EkZow2 my58mAQzs2K7sJE5FMyi GFDhoR7hNHtbKzR6 FGHdBmHlsU61fAElEQcv Yu8esKactPggCV0iHTCz yoijVXKvyB2lZMGspVLz pIvuPG5yEYSfzaug k020ZrMuKYZ8ZHQnxJHu N3DeqY5xAtVgQKNeTEDc S2QhbIDsQWfhY455HMsw XgS1IMWyfzDhU4Kn NRAifQnmYqZ6b8H5Dy3Y e7BwaiiiBMZ0PAseKBI7 EgS5LuMpPzV9J1IuSek2 LFFztOpgLR6yI9Kx EWYweajfvunpsVJ8ASQv WRFwhI47wGHiMNmzGp2u m8W1y447EDPoIDCshY39 Yt6weJmfMIWzrKME eD6gigrvf1pxzizrOmIc NBIdCDy3OGf0NZQvaBbt TrDpVTP3GsH9CQS9tJTu fQ7rnShvusiqxP3b Oyc+X58llZ4xAIK6ZNZ8 lrozWIFsbbLpXB69QW71 X2ClQvajjXNveZI+PGRp akYozWfxLN9mSbIz k5yjb7IvFZoqP0ZzBQDq FTbbVtv2MXEvEGT3jON4 hQ4cQOPqZCuqp7L3rYT5 L2MhgtPvkc7fx8mr UWZvUAbrS24miDVam5U8 ZAYzaUJ0MCVwoOtfSeDc kN04Amy+WZVoqCkgv4Fx Chdik4qxv4kiiAw6 IjMwJSIgdmFsaWduPSJ0 r1YrAa45D27zLFdaPMIl LMMeIORzUSSqyKwwik7a fL4jDx3+PGNvbCB3 iDV0kX8dVMCwAwR5TScs K482NgHgaNHpCsamn4sr s5ocyCf6TbNyGYYtetCb mAzmTIY8a0HhLt26 D26mWNtvZDEhVJMiGQAn XHWlcLiuhw0heS7cDs8+ LH2ad8teux38tP94rBZ+ KIQmYIJ4cXjrAKbp AIYvvV4aZAxjOcR6GYAo WrBvsG61aRGhRTjkLf3t mBabvKcyEC1xXIQkpmzw r054UvBjh7nuQCZh yUYaFGhmLTP9U11fn7K6 XTBfXLVxKJX9cBA3fN4x bGlnbjogbGVmdDsgdmVy zWjrIYeuCCbwV655 IHRvcDsnPlBhdGllbnQg KaPrXZj0C8PzHso1AQKy aEnfLB6sdNFyBDlzJd8f aIbhwAgvZP4kQFBx hhprz417TrGpt2wmYJMz zJMmAOmlCNB5T15di4P2 LAPsYNKcUUX8gLR7tR5l bGlnbjogbGVmdDsg moKufYnsURixIJvmZ523 IHRvcDsnPkJpcnRoIERh nBD3BU94UQ59zKPea8N4 yDV2V0UnSZNudqrr ioczpEE7KNAqYPDicT48 Rh2iyZbiXj1aVTHzVWG3 CWDxoOAvR6BqgB4gMdXx GRZiEVNwI8ZxhWHp XWibP961VUpqIvS5AQMn mwMdR1JiJOIqkFnxNeC9 b2B7Xr9RT7M6AK33LA77 gGTlg8I1zUN2R9Hg VHHbpdnxkrlspHP7PGUv BXMibZ02Fk6gnRdqMl5h KCVuCHP1DCXheDShK3Ph lC9xCnEvAUWaGQOu J1WhzBGaETxyW502NCzq OcD9BFCjizFuO4PxOZJm kWrfFqZ8m2Q3Oy9NXPc3 HN14CP48aAGbn5K2 lBK4Z9TgXBUztbvjiqmd qAT8WHLfFFAqmP46Qe4b xPavCk8xMMEuWSG1PXRa sCMhL9QvxS9aTkGj CBUaJSBmT0SevDQlDMqz D158LSgvBkS9DCPtyiHe S1MvGMXvzUkbGjD9i8H2 Az5HFUWmKO72BWC3 iGS9DD11WL56A8PcKlzg dGFibGU+PHRhYmxlIHdp ZHRoPScxMDAlJyBzdHls JM6iIv1uTONqQSPr kCzwySIsCgCro9juYOWv APweSR4rvAvtF1SroGM8 RLKox4g9Cq77U28zB8Om dXA+KKRrhPG8mIS4 oL4xZkDwAcS9BQtiT125 RbEtvQQlXymxg5pzq1ne hCp4RbD2DFJcgsUflMyv ZLR3u1VxFu36O00m IHdpZHRoPSIxNSUiIHZh aWxpgl6gnE4eQj7+PGNv xZA2mHW7kM1kEfJoEdJ1 ZEumC667QrQaoZQf Iyroh5haj6lppSh9PqIt SEOhhtXaqDwyWUH9z0Wo Ll33N5JmgHqpi9TqXrd1 ay65zYGos5H2tMY5 G6GdIEJmiogvsWQztWcx AS9cAIPaqbcjCEIdaL6w ZMJqM6q4IgYaRpV5JBhc A7WqliO1RIJkuSSj DZdyJLD1L84cs2E6JLSh ZNVcIEB9xTP0fW4jnQze bjogbGVmdDsgdmVydGlj ZNdfKFbzJ253WFGg hRdkBMYqoK7nNCCieHAr mVuoMM5dPUWbwntzNgIK JQjWANnmW2SNXMuEPhkF RZ44YZ12qZSke9N3 sZW7O4WiDAErimppjhkf fPP4ZNSbGVGlrV96bSDv GPfkYu5xz4Q5x274LWOh HZMlwP33Zg1emGuc BBOolHKOzT5ilfovg2ch phihMfUvPWXhMCw1MSy2 JJShtLkqKpIoCTI0ZtH3 KHP7xRQimS3ycInu lvxcjF8nWbk+MDIvMTkv MjAwMzwvdGQ+PHRkIHN0 yKejFDbuHAYiuL3eYLQy R4k7GvDdWbL8PJhs W1QnHDVgumhdZk72uY4g YkItYfI6IQajD7HsywS7 LZFnaXHoGZokKKX3Y61q m7J9WLZcBLXaLRZ1 qVG4bT7rmTbogdftxRGu dDsgdmVydGljYWwtYWxp X659QVVnfXssZeG6BVws BXOlCC95XY08wPWh l5V1lTO9O2IjFFJhnvmz sapxnAV2LXFrBNIphH10 cPLbWWnyMe5ok5R9h488 ZBFrYBIjfI05Kx5f lQviJDGovSHZrO5mppyy e7artayqFeYrHIMfIIk1 KQd5HLNlsAgvMkMwPJR1 NnT8BCV9yQXvuT0l iAhjyzesjG9sTjy+RmVt UXlnEN84WA19xDKzs4A8 bCX1V6MhKQXqbddlqngn dUX0APZlSCHpcQ58 yZClCJgyNg8ry5T1b841 TIExVXTlrQ81Oq9bdBsx MWLzmTLYxM0clbtkc7eb cjogIzAwMDAwMDt0 SQd3KPLxqMqxUkMePTA5 WtO9ERO3qHJzyF6ksNyr dttdnE3hUip+I7M7xZN4 aWVudDwvdGQ+PC90 xy14K7WiDaknCke0TWRp CBB4lFQ8wX5yREZgYQso i0O3hIT6J6PsguBtuc2y o9akFTElYFuoG59d oMVrj5R3SXHkkAY8VHDo jBloMoEnyM97Atw+PGNv fHwco9GgGqkxs5hky7gj mNv9DxQxWRSbovHl fHmnLKZ8f4ScAi00P06i IHdpZHRoPSIzMCUiIHZh eWswvx6qzY6eMx2+PGNv yBW8tHN8pC1pJpSk XyK7WAwyK554AnMnjTUl Vuhqx3jym4jyoYy1SsMg ZHZxzvKzjXodBXO4t7Qh Gh43O3IkkElxd3Pk Zmd5nq83nRDse7D2jQB2 F8JuGHQcvqlzoOOssWay YJ3vQZTauwzqZIWwcY0c CWMiJ5u6FoMvNzN1 KUyzH3KowxF2YXPrxSYr USKbpISDmJ2jyvump4pz cjxsJlBtMBMmFEy1UVv0 LWFsaWduOiBsZWZ0 WbN5POA8gWGqaN5mqIkj cawjuD5hTov+YGi1a1am pXKeXV4jdXI8UW50UW98 eUZcm4S2yRU6Y4Pj BESfdhwpxnihuYQ8KCQl GQVwfG10Ye0rfEdcYs4h FWEaUQJ4POAuaVHaN0Cf oJ0xWnByMMEfORRg P1CnsCMtBVbzY882RDzv DjJ3PBFscwOhK8PyRDJi dVdnZqI0b1Q6Fj5KBM53 IA54MX40rOVfn1F2 sDG6W7VgUJBjvhlhyusl dVW7MJExRWVkrD41Va0g rIbhZe9cFSGyXSU0SRDv wGNxQ6DquO2jBwIn FGSvUSVcZ7GztWYpIWwn G627PKeqVsD8JKKzpiRp V9VeXJWvgCzdYoQ2o2A7 Mu6UDx13KF67VE65 uMAqs5I6bQW2A2AkMUGg erdmbfxrhLL7KGRySMCa mT55Iu8kkYuxGk6vWNAm TLO9GQHsjJZyI7Yn lU8aSzTdUQVkJEPvS7Ie fORhLXeuD960NMueDuO5 COAeyiVuK6OlVTQmlAxm BsG3t8F0Mr8LCWjc ckm1S7XnZxrleTE+PC90 JFQeWF43hSOlvFWgb5dy kEr8DhYmEVXxGSE5vJrg VBqfl0IhMGWdG60d bGFw (more content not included)... Normal [facility] Consent for Treatmenton 01-13 Consent for Treatment [id number] 20 [id number] #1.00CD:127 Normal [facility] Physician Orderon 02-03-2022 Physician Order [id number] #1.00CD:127 Normal [facility] XR Shoulder Complete Righton 02-03-2022 XR [...] M.D. Transcribed by: CHRIS Technologist: JULITO Hanson [facility] CBC AUTO DIFFon 01-15-2022 BASO # 0.0 103/ul Normal 0.0-0.1 [facility] Comment on above: Performed By: #### C BC #### [facility] [address] [address] [address] Venancio Soriano Basophils/100 WBC (Bld) 0.6 % Normal 0.2-2.0 [facility] Comment on above: Performed By: #### C BC #### [facility] [address] [address] [address] Venancio Soriano EO # 0.1 103/ul Normal 0.0-0.7 [facility] Comment on above: Performed By: #### C BC #### [facility] [address] [address] [address] Venancio Soriano Eosinophils/100 WBC (Bld) 1.3 % Normal 0.9-7.0 [facility] Comment on above: Performed By: #### C BC #### [facility] [address] [address] [address] Venancio Soriano Erythrocyte distribution width (RBC) [Ratio] 12.8 % Normal 11.0-15.0 [facility] Comment on above: Performed By: #### C BC #### [facility] [address] [address] [address] Venancio Soriano Hematocrit (Bld) [Volume fraction] 36.5 % Normal 36.0-48.0 [facility] Comment on above: Performed By: #### C BC #### [facility] [address] [place] [address] Dr. Venancio Soriano Hemoglobin (Bld) [Mass/Vol] 12.2 g/dL Normal 12.0-16.0 [facility] Comment on above: Performed By: #### C BC #### [facility] [address] [place] [address] Dr. Venancio Soriano IG # 0.01 10e3/ul Normal 0.00-0.03 [facility] Comment on above: Performed By: #### C BC #### [facility] [address] [place] [address] Dr. Venancio Soriano IG % 0.2 % Normal 0.0-0.5 [facility] Comment on above: Performed By: #### C BC #### [facility] [address] [place] [address] Dr. Venancio Soriano LYMPH # 2.7 103/ul Normal 1.2-3.8 [facility] Comment on above: Performed By: #### C BC #### [facility] [address] [place] [address] Dr. Venancio Soriano Lymphocytes/100 WBC (Bld) 42.9 % Normal 20.5-60.0 [facility] Comment on above: Performed By: #### C BC #### [facility] [address] [place] [address] Dr. Venancio Soriano MANUAL DIFF REQ NO Normal [facility] Comment on above: Performed By: #### C BC #### [facility] [address] [place] [address] Dr. Venancio Soriano MCH (RBC) [Entitic mass] 29.4 pg Normal 26.7-34.0 [facility] Comment on above: Performed By: #### C BC #### [facility] [address] [place] [address] Dr. Venancio Soriano MCHC (RBC) [Mass/Vol] 33.4 g/dL Normal 29.9-35.2 [facility] Comment on above: Performed By: #### C BC #### [facility] [address] [address] [address] Venancio Soriano MCV (RBC) [Entitic vol] 88.0 fL Normal 81.0-99.0 [facility] Comment on above: Performed By: #### C BC #### [facility] [address] [address] [address] Venancio Soriano MONO # 0.5 103/ul Normal 0.3-0.8 [facility] Comment on above: Performed By: #### C BC #### [facility] [address] [address] [address] Venancio Soriano Monocytes/100 WBC (Bld) 7.2 % Normal 1.7-12.0 [facility] Comment on above: Performed By: #### C BC #### [facility] [address] [address] [address] Venancio Soriano NEUT # 3.0 103/ul Normal 1.4-6.5 [facility] Comment on above: Performed By: #### C BC #### [facility] [address] [place] [address] Dr. Venancio Soriano Neutrophils/100 WBC (Bld) 47.8 % Normal 43.0-75.0 [facility] Comment on above: Performed By: #### C BC #### [facility] [address] [address] [address] Venancio Soriano Platelet mean volume (Bld) [Entitic vol] 9.5 fL Normal 9.5-13.5 [facility] Comment on above: Performed By: #### C BC #### [facility] [address] [place] [address] Dr. Venancio Soriano PLT 323 103/ul Normal 150-450 [facility] Comment on above: Performed By: #### C BC #### [facility] [address] [address] [address] Venancio Soriano RBC 4.15 106/ul Critically low 4.20-5.40 [facility] Comment on above: Performed By: #### C BC #### [facility] [address] [address] [address] Venancio Soriano WBC 6.2 103/ul Normal 4.0-11.0 [facility] Comment on above: Performed By: #### C BC #### [facility] [address] [place] [address] Dr. Venancio Soriano PROF 14(COMP METB)on 022 Albumin [Mass/Vol] 4.0 g/dL Normal 3.4-5.0 [facility] Comment on above: Performed By: #### C MP #### [facility] [address] [place] [address] Dr. Venancio Soriano Albumin/Globulin [Mass ratio] 1.2 {ratio} Normal [facility] Comment on above: Performed By: #### C MP #### [facility] [address] [place] [address] Dr. Venancio Soriano ALP [Catalytic activity/Vol] 67 U/L Normal 46-116 [facility] Comment on above: Performed By: #### C MP #### [facility] [address] [place] [address] Dr. Venancio Soriano ALT [Catalytic activity/Vol] 16 U/L Normal 14-59 [facility] Comment on above: Performed By: #### C MP #### [facility] [address] [place] [address] Dr. Venancio Soriano Anion gap [Moles/Vol] 11.8 mmol/L Normal [facility] Comment on above: Performed By: #### C MP #### [facility] [address] [place] [address] Dr. Venancio Soriano AST [Catalytic activity/Vol] 9 U/L Critically low 15-37 [facility] Comment on above: Performed By: #### C MP #### [facility] [address] [place] [address] Dr. Venancio Soriano Bilirubin [Mass/Vol] 0.3 mg/dL Normal 0.2-1.0 [facility] Comment on above: Performed By: #### C MP #### [facility] [address] [place] [address] Dr. Venancio Soriano Calcium [Mass/Vol] 8.6 mg/dL Normal 8.5-10.1 [facility] Comment on above: Performed By: #### C MP #### [facility] [address] [place] [address] Dr. Venancio Soriano Chloride [Moles/Vol] 106 mmol/L Normal 98-107 [facility] Comment on above: Performed By: #### C MP #### [facility] [address] [address] [address] Venancio Soriano CO2 [Moles/Vol] 24.9 mmol/L Normal 21.0-32.0 [facility] Comment on above: Performed By: #### C MP #### [facility] [address] [place] [address] Dr. Venancio Soriano Creatinine [Mass/Vol] 0.58 mg/dL Normal 0.55-1.02 [facility] Comment on above: Performed By: #### C MP #### [facility] [address] [place] [address] Dr. Venancio Soriano EGFR-AF SUDANESE >60 Normal >=60 [facility] Comment on above: Performed By: #### C MP #### [facility] [address] [place] [address] Dr. Venancio Soriano EGFR-NON AF SUDANESE >60 Normal >=60 [facility] Comment on above: Performed By: #### C MP #### [facility] [address] [place] [address] Dr. Venancio Soriano Globulin (S) [Mass/Vol] 3.3 g/dL Normal [facility] Comment on above: Performed By: #### C MP #### [facility] [address] [address] [address] Venancio Soriano Glucose [Mass/Vol] 94 mg/dL Normal 74-106 [facility] Comment on above: Performed By: #### C MP #### [facility] [address] [place] [address] Dr. Venancio Soriano Potassium [Moles/Vol] 3.7 mmol/L Normal 3.5-5.1 [facility] Comment on above: Performed By: #### C MP #### [facility] [address] [address] [address] Venancio Soriano Protein [Mass/Vol] 7.3 g/dL Normal 6.4-8.2 [facility] Comment on above: Performed By: #### C MP #### [facility] [address] [address] [address] Venancio Soriano Sodium [Moles/Vol] 139 mmol/L Normal 136-145 [facility] Comment on above: Performed By: #### C MP #### [facility] [address] [address] [address] Venancio Soriano Urea nitrogen [Mass/Vol] 9.0 mg/dL Normal 6.4-19.3 [facility] Comment on above: Performed By: #### C MP #### [facility] [address] [address] [address] Venancio Soriano Urea nitrogen/Creatinine [Mass ratio] 15.5 mg/mg Normal [facility] Comment on above: Performed By: #### C MP #### [facility] [address] [address] [address] Venancio Soriano Discharge Instructionson Discharge Instructions [id number]#[id number]:127 Normal [facility] ED Note-Physicianon 10-23-19 ED Note-Physician Basic [...] Orders: Influenza A&B Ag Rapid COVID Antigen ([facility] [place]) Disposition Plan Patient Discharge Condition Stable Discharge Disposition Home Discharge Prescription List Prescriptions No active prescription medications Follow-up With When Contact Information Michelle Mata In 3 days 10/22/2021 EDT Additional Instructions: Patient Education Viral Respiratory Infection, Mzwl-Lx-Zyci Attestation This visit was performed by both [...] Diagnostic Results No qualifying data available. Normal [facility] Comment on above: Result Comment: Elec tronically Signed By: Cherry Hazel PA-C\.br\Date and Time Signed: 10/19/21 17:19 EDT\.br\Electronically Co-Signed By: Miko Kaur MD\.br\Date and Time Co-Signed: 10/22/21 10:35 EDT Coding Summary.on 10-20-2021 Coding Summary. [id number] Gh0bWw+PGhlYWQ+PE1FV GXzZ33wjISspY8DN7bTA Q4AVBAIGJNBOU5CBL6hv FX4UTzjN1LnoiMb HjsfsIJaRP82YFc1RVV4 mKfgPAxzqM6baUDtY5g9 GlWjCM48eZ09IYvvUNLs PpI8JyDnedyqaUBh I4vqNoMsfYHtSnr+PHRh YmxlIHdpZHRoPScxMDAl XnFblXphPI1oIb4wVYGa LWNvbGxhcHNlOiBj b8iiYOEtIFgpZS0cvMqo E4QnhKJ5LEWjq6m5Qh37 dHI+WDRfGIN2zHraCZxd g997JaUpd8opVAE4 bLXkNTxwKJQ9D98cl4D4 MFBvSZUkRHT3jSV9tJ2d uGligmtvX5WbeGTrMjT1 MMN3rYObnU6yvIpm zbvgxZ6kCiz+E89MRQ3G FJAUXF7PGvr6W1UiGqaq dHI+UA78GGVaPS99iPZb aIMcq0zsoQd0JiIb JSSvCZA1fVbuUUnwb1Gv IYJeO88woMPpl7X7GUUs eBmgaYBtMfQcpAQ3yI1d VJexosgdl3uipgvp Ijkxo7dsfs21jY46A31s IKarURSdUFH6IWBbKRCn sRhwzj8ztY5bGi1+IDxj x2rob6qazAh1KzDk SWYynyBhlZoxKJG8r4Xt Ub36W4XecYuli4ZfDms1 ob55wSCqg2B0uCX2UHqh UNGdcD8sVDljYjQ1 GQOlBjGgdL00cKEsANfh Zh0ywEseiVmqMS2uSIHu krnuOIYclP4sBKMymBCt lPxxGK6eOBZsvuwf u509FlKsXQQ6UPUlcDRp F1PcdI8dAsEeMOXrXKZp S7LtjVRcUJznN485EAsz TkD1RRPlapXeT2Bo CCMklMfbAsQ4o3I6Pn7I v7IsdfpjYUW5RUzeHGB0 RzX1UyXdJiG2F6TsKgs2 LVIrjOivVL2dL4Oj KIFodiagjcclsZD5RTGu DPAwcX34uXOzPOlaUa9u x3U0u183ARIcNGXvcX20 Aj6roBflASKxvSER sY3fyrtta1rmuzjcJeHy PPNyLNs1DFl1FRHpoZaw YiRbAGI2LjS5COR3mIKt dP4xwNvsrmirfS6d Oyc+J36kzM6mMSJ9JDG1 yjagIBYfjtOhMY95OX54 H6PqAedoeFKyrRY+PGRp byFrmSpeNM3jRvFs n6vrk0HcDWizN0LlVTLl SKldAtl9EWMjPZZ8aCV5 eP0lAGCeYMemg9B0zJQ7 W6NysmJlfw2dm0tm JZZhARlaO31ahOHoi3L6 XHDkaJP8WYAktRnmJyAh aF02Uub+AJGrzCgsm3Va Rabaw2evg6mlpZk2 IjMwJSIgdmFsaWduPSJ0 f6PhAz07P25cMNptAYYa BHXfXKOsXYGppBames3f hI2gVn2+PGNvbCB3 eJD3kV0qUHBtHmB4PLaa Z844YrHekAYnMhist8iy u5wmrMj3OzEgHELfbhPb rIdqTIN4z3AqTq89 Z33iJXlrDMZmAVDeTYFp ONUkaBsaqk5yrK6mAz9+ YJ2fl1wwmt50hI87qAM+ WLBcSKK1sCriTSaq ROJfaQ0sHXxlFvT3GWIx XpKkzV76nMGwTTnqBj6c zVchwMgiMY8cAGWyexwf b587DhXcg3wwBPDv jVJhDNhgQEM8M78up8O1 BAPyMRIaHQF0dVI6yS1l bGlnbjogbGVmdDsgdmVy dFhuWMbuWRzkV702 IHRvcDsnPlBhdGllbnQg ZoFtRPq7Z6DzCsd0RCJa rQgzOR6qpAFyZSgrVr8h hSuqvTbbWF9dIKTv fmcvn952WqVgf9hmPYLp kZKrTVlcQNX9S94ib4L9 OTHqTGZsVOQ4pYI0sO9h bGlnbjogbGVmdDsg owIqpEecFNkoWNxcW367 IHRvcDsnPkJpcnRoIERh bUW0BJ61TQ37dIWva4V6 gXK6Y6TbRKMkpnll udkwzBW3GSAfTYYuaH61 Ue0axYjpOt1cLYKeCYZ6 KFVtyXTlW5MvaI7oNdXb SEDxYYCdR4OgoNDd BTtqY901ZGifMpJ1BQVu nwGcI8UzIWGckOomVdS8 u2F2Wj4IW5H9IY82ZQ07 zAQke0L6bAN4F1Ea FRQjmgesrgnwcDM5CITt ALUesH98Mf1qdOzcNq5y AXQvPTX0DAGrwKDxJ7Vk sX0nZoYyWPRmUFXo T9NxcMFtMBluE741OYkq FyM5EGPnrgKkP9McTSTl hCteScI6f9U1Xd0WSAj0 HO33LQ28wEShk7Z9 vMT6M0XzIPPkienzxcqe fLT1ZTLpNECqgX24Dd7d jSpkHj2fUGMtEXJ9YASx eNNdU3IpaZ1hMhFf HWNdROCeR5KetSGsBPts F919GRsoVzU6TAPysfHs O1EjMPEmlRywYqB3j8S9 Sg8LYLLsHA84VWD0 kQY6LC06VO60B0VsRuep dGFibGU+PHRhYmxlIHdp ZHRoPScxMDAlJyBzdHls TG9lRt0uUUOnIJDg bVxvnJUrQbYyp4onPHVt CRjsJM9neYsoT7HylWN8 ZZMgk5z9Xw85B28jZ2Wa dXA+KLZrfMK7iKI2 zP9xZkZuHwY9XVjnK084 OtCseZNjNympz2zua1ud qBf1RxL1KPWxeuDnhItc TFT1n2CyFz11W67k IHdpZHRoPSIxNSUiIHZh fXpkqq4rvV8vMu0+PGNv hJL5eLH5eF3jTnLzNdR1 UHpbE468KmQmjBLh Xmqza6hxy4jkuMd0IsTv ITRvosHecIpnBYO6e7Jh Tg09Z7XnsIlee4IuMni4 fs76qNRni2P0eUY1 F4LeTMBmewxzoSWxoRla PB8nNZEbbvjuSINzsR0j NXOiF1a5FkFrClI2BJwf W0RwmwO9CTZikPJq UUguWAX8H16zo1D5FPXb FZTrNAF0nPC1tC6djHax bjogbGVmdDsgdmVydGlj CAbaHZyqF545IXBd dEqtTEPgoU2xVQAyvIAx zFajMZ7jRKBsarghVwCC IRyXTSrxC7LJZVfIWvqS YS16FL93uJZeu9C7 eEA1E9PqJWLumrgxlmax kHX0YYIiKWEwnB69sDOl KYmmCe1uc6L6r909STId GRWppE50Zv7wkAhx WBZjaKXIdU7dnflpm6me rzpjFuHvWVYhBQd8BOl1 ILZxiTwwVoDiMHG0FaW2 UQD9gXPnxV9jzTuu fzmasS2sXta+MDIvMTkv MjAwMzwvdGQ+PHRkIHN0 aSeaSHvfNPRohR0oYHEj Z7m7DsQfSwP4VZmd K5UvQSBeduroXu32dB2q SbXeUxZ7KAttL4LcvlL2 VIZxlDNqQEphBFK9V48u y9Z2WRBvGXLaPDN0 kZJ2sA8teRxhtfcoiGUv dDsgdmVydGljYWwtYWxp U763JDEfoFpjYbJ6MKcp YNBpFI02KN86nDFe a8S4zID4C0HrQYTgfnak auagdHF2EANqOGPvwO35 dCQbNAybBw9tc5K0n066 OHFlLAJbeT38Gu9x lWgzVZZqwPXOhQ4wykjc l1oroqvsAaDdMCKmEPg4 MXt5OTJegSkbMkKzCQC0 PkQ6XDB2vDHftJ5u gIetqkckjP9pOna+RmVt ZDetKF81NI38pKAei0Q1 bPQ0D2ZdJCRnfoewqdvo dME6OYKmIIYcsE10 xIYlSDynWz5ss5C5r511 GZJhCDPnaF25Kn4dsUwf IDDfxNAFlI8qichws4qr cjogIzAwMDAwMDt0 EQw1RRNcsCuhYzDaMUU7 QsA6PRD8jYXdqX6yoKtd nzjkdM2vMkx+JE0qdbfj wtD4RO38RC79E7Vb PjwvdGFibGU+PHRhYmxl IHdpZHRoPScxMDAlJyBz nJyrJG6eDg1fPLWrNZHb wRcbmDYfCjWfz8rt MQVyNLooYM4yyNvyM8My vUF0IOPof4n1Ij46Q64b O5UyyRN+VBJlaPC3iLG8 kC4zGmPkMtZ4ULap U187IzPtvHOvIigpy3dv z3gycJl5JiKySJKkkdGh dApxYHO3u5HzYt28K01j IHdpZHRoPSIyMCUi HGGsnPicfq1eeI3cAf0+ MKHyuYQ0uKG5dV4nNtTw FbS8NVyeZ486WtImlBYc MiafC37gA9JogHF+ UFBuXrt7QDIunPxxSZ9h aYMrYBreUn9kRJC4OjPi ScTiDJowP7EnYQCyxgzu wcuchOQ8CUUxPKSh lX81Bp0baQzxVl2nOZMm OBA2MQEyaPPyI8FkfC5k IsEjHEUlNSPaV4QtoTKi OYpmK439KPrnWbU3 HLBcleBbW0MaFVXjoFaj ZnB7a7S8Hq4BuApbcWOj YP9pZuZqTZu5I8IeExz3 XNFdwTtcEL1txCTv NNjsAi5poOcyhEzdIK3t UVWaiykex005RdTrg3rr MQKfcWCpCAsjVXY9A94t p4H5ALKoNKDoLSV7 gTB7aR1fcCvmekigmMUn dDsgdmVydGljYWwtYWxp S232QBMjeAwfKzOORzq2 I8WlTfn9XXGqtRbb AS6gbRMmVDaqGf7ueQua tIkyGX7xGUHbyhegn972 IjVjj0vtDESsoOZnIXrn WEQ6P33wj9N9MXAm AHOtJUT9rEI2zP4lmIrq bjogbGVmdDsgdmVydGlj JStsGXylN141PHFvzSxl Za2JMpp9M3NnXsr1 BSXjnRvmUA8clDIzUAne Wg4apLuunUxnAI5vBUJz hmjmt706ElLio2cvEOLr qNLoZNdhJAD1K33l b8X5ECRqVTMqRGT7vKK5 fJ2fkBzhplsgxIKfnWob imLyrMepDGvvVMudV033 IHRvcDsnPlBheWVy OjwvdGQ+AW37kq32K0Nu GjyhFtn3ZIXwQKB3jRW0 qC4kCIKhGRrgm1H7jYZ8 I1EikaYpol6cj1xx YXBz (more content not included)... Normal [facility] Consent for Treatmenton Consent for Treatment [id number] 20 [id number] Normal [facility] ED Clinical Summaryon 2021 ED Clinical Summary [place] [id number] ED Clinical Summary Person Information Name: MARIBEL VELEZ/[facility] Age: 21 Years : 2000 Sex: Female Language: Kyrgyz PCP: NAIMA PEREZ MD Marital Status: Single [...] 10/19/2021 17:27:21 10/19/2021 17:27:21 10/19/2021 17:27:21 ADDRESS: [address] [phone] PHYS DOC NOTES: MEDICAL INFORMATION: Prescriptions Given: Medications to Continue with No Changes Other Medications ethinyl estradiol-norgestima te (Sprintec oral tablet) Ib By Mouth every day. ibuprofen (ibuprofen 600 mg Tab) 1 Tablets By Mouth every 6 hours as needed as needed for pain. PATIENT EDUCATION INFORMATION: Instructions: Viral Respiratory Infection, Ofxl-Sz-Webi Follow up: With: Address: When: Salena ANTONIOMichelle In 3 days 10/22/2021 DIAGNOSIS: 1:Viral respiratory illness; Other viral agents as the cause of diseases classified elsewhere Normal [facility] ED Patient Education Noteon 10-19-2021 ED [...] home: Managing pain and congestion ? Take ixlb-fih-kqspict and prescription medicines only as told by [...] and water are not available, use hand hvac residential service technician. ? Avoid contact with people who are [...] 05/13/2009 Document Revised: 06/08/2019 Document Reviewed: 07/11/2018 collegefeed Patient Education ? 2019 C[employer] Podium. Normal [facility] ED Patient Summaryon 022 ED Patient Summary [place] [id number] Patient Discharge Instructions Person Information Name: MARIBEL VELEZ Age: 21 Years Arrival Date: 10/19/2021 17:05:16 Discharge Diagnosis: 1:Viral respiratory illness; Other viral agents as the cause of diseases classified elsewhere Primary Care Physician: JOSE G VENCES, NAIMA Joseph Provider Information Primary Provider: Advanced Maintenance Team Leader:None The exam and treatment you received in the Emergency Department were for an urgent problem and are not intended as complete care. It is important that you follow up with a doctor, nurse practitioner, or physician?s dental ceramist assistant for ongoing care. If your symptoms become worse or you do not improve as expected and you are unable to reach your usual health care provider, you should return to the Emergency Department. We are available 24 hours a day. MARIBEL VELEZ has been given the following list of patient education materials, prescriptions and follow-up instructions: Follow-up Instructions: With: Address: When: Michelle Mata In 3 days 10/22/2021 In the event that this physician does not participate in your insurance network, please consult with your insurance company to find a nearby participating provider. Patient Education Materials: Viral Respiratory Infection, Owuy-Rs-Llsf A MESSAGE TO ALL PATIENTS REGARDING OPIOIDS PRESCRIPTION OPIOIDS: WHAT YOU NEED TO KNOW Prescription opioids can be used to help relieve hmkqbkrc-aq-aaiorg pain and are often prescribed following a [...] be struggling with addiction, tell your health acute care clinical nurse specialist and ask for guidance or call [facility] National Helpline at 0-030-214-THIC. v Source: [place] Departmen (more content not included)... Normal [facility] Influenza A&B Agon 2 Influenzae A Ag Negative Normal Negative [facility] Comment on above: Performed By: #### 1 [id number] ####[facility] [address] [place] [address] Influenzae B Ag Negative Normal Negative [facility] Comment on above: Result Comment: Test sensitivity and specificity vary for age group, specimen type, antigen types, and prevalence of disease. Test results must be evaluated in conjunction with other clinical data available to the physician. Individuals who received nasally administered Influenza A vaccine may have positive test results up to 3 days after vaccination. Performed By: #### 1 [id number] ####[facility] [address] [place] [address] MICRO OTHER TESTSOrdered By: Mya Reza on 10-19-2021 Influenzae A Ag Negative (10/19/21 5:05 PM) Normal Negative [facility] Man Sero Influenzae B Ag Negative (10/19/21 5:05 PM) Normal Negative [facility] Man Sero Rapid COV Int NEG Ctl Pass (10/19/21 5:05 PM) Normal FT Man Sero Rapid COV Int POS Ctl Pass (10/19/21 5:05 PM) Normal [facility] Man Sero SARS-CoV+SARS-CoV-2 (COVID-19) Ag IA.rapid Ql (Resp) Not Detected (10/19/21 5:05 PM) Normal Not Detected [facility] Man Sero Rapid COVID Antigen ([facility])on 10-19-2021 Rapid COV Int NEG Ctl Pass Normal [facility] Comment on above: Performed By: #### 2 [id number] ####[place] [address] [place] [address] Rapid COV Int POS Ctl Pass Normal [facility] Comment on above: Performed By: #### 2 [id number] ####[place] [address] [place] [address] SARS-CoV+SARS-CoV-2 (COVID-19) Ag IA.rapid Ql (Resp) Not detected Normal Not Detected [facility] Comment on above: Result Comment: The Smart Picture Techitor? System for Rapid Detection of SARS-CoV-2 is [...] or revoked sooner. Performed By: #### 2 [id number] ####[place] [address] ADMITTED TO INTENSIVE CARE UNIT FOR CONDITION OF INTEREST:FIND:PT: NO Normal [facility] Comment on above: Performed By: #### 2 [id number] ####[place] [address] EMPLOYED IN A HEALTHCARE SETTING:FIND:PT: NO Normal [facility] Comment on above: Performed By: #### 2 [id number] ####[place] [address] FIRST TEST FOR CONDITION OF INTEREST:FIND:PT: Unknown Normal [facility] Comment on above: Performed By: #### 2 [id number] ####[place] [address] HAS SYMPTOMS RELATED TO CONDITION OF INTEREST:FIND:PT: YES Normal [facility] Comment on above: Performed By: #### 2 [id number] ####[place] [address] HOSPITALIZED FOR CONDITION OF INTEREST:FIND:PT: NO Normal [facility] Comment on above: Performed By: #### 2 [id number] ####[facility] [address] [place] [address] STATUS:FIND:PT: NO Normal [facility] Comment on above: Performed By: #### 2 [id number] ####[facility] [address] [place] [address] RESIDES IN A CONGREGATE CARE SETTING:FIND:PT: NO Normal [facility] Comment on above: Performed By: #### 2 [id number] ####[facility] [address] [place] [address] US SINGLE QUAD RT UPPERon US SINGLE [...] by: SUGAR CAMARENA Date: 2021-09-19 11:51 Normal [facility] 08-05-2021 [facility] [place] [address] Nuclear Medicine Report Signed Patient: Maribel Velze MR#: [id number] : 2000 Acct:[id number] Age/Sex: 21 / F ADM Date: 08/05/21 Loc: [place] Room: Type: [facility] Attending Dr: Amy Tang DO Ordering Provider: [...] Amrit Cevallos M.D.08/05/2021 4:16 PM Dictation Location: [place] [address] Transcribed By: VANIA 08/05/211615 Dictated By: Amrit Cevallos DO 08/05/211610 Signed By: 08/05/211615 Normal [facility] HCG,Urineon 07-29-2021 Beta HCG ( test) Ql (U) Negative Normal [facility] Comment on above: Result Comment: PERF ORMED BY: [place] [address] PATHOLOGIST CIVIL ENGINEER LAND DEVELOPMENT EDDIE CORTÉS M.D. Performed By: #### U HCG #### [address] 07-29-2021 L Specimen: [id number] Received: 07/29/21 Status: AMMY Valdes Num: [id number] Spec Type: Surgical Subm Dr: Amy Tang Jr, DO Tissues: A Colon Biopsy (RANDOM BX) Procedures: HE Stain/2, Gross/Micro L4 Patient Age/Sex Location Account Attending Physician Maribel Velez / [id number] Amy Tang Jr, DO SPEC NUM: [id number] RECD: 07/29/21 STATUS: AMMY VALDES NUM: [id number] DIMITRI: 07/29/211054 [facility] DR: Amy Tang Jr, DO ENTERED: 07/29/21 [facility] DR: ELENA TYPE: Surgical DEPT: S [...] Entirely submitted in one cassette labeled A1. (IVANNA/JS) Microscopic Description Two glass slides with H E stained material have been examined. The microscopic findings support the above pathologic diagnosis. [address] Specimen: [id number] Received: 07/29/21 Status: AMMY Valdes Num: [id number] Spec Type: Surgical Subm Dr: Amy Tang Jr, DO Tissues: A Colon Biopsy (RANDOM BX) Procedures: HE Stain/2, Gross/Micro L4 Patient: Maribel Velez [id number] (Continued) Signed (signature on file) Eddie Cortés MD 07/30/21 6123 [facility] COVID-19 Antigenon 2 COVID-19 Antigen Healthcare [...] its performance Lucas Disclaimer characteristic determined by [employer] and Lucas Disclaimer validated at [facility]. This Lucas Disclaimer test has not been [...] is terminated or revoked sooner. PERFORMED BY: [place] [phone] PATHOLOGIST CIVIL ENGINEER LAND DEVELOPMENT EDDIE CORTÉS M.D. Normal [facility] Comment on above: Performed By: #### C OVID-19 LUCAS, SOFIANEG #### [address] Lucas Ag Negativeon 07-25-19 22 Lucas Ag Negative Negative Normal Negative [facility] Comment on above: Result Comment: This is a duplicate Lucas SARS Antigen (REINIER) result to be used for statistical tracking purpose only. PERFORMED BY: [place] [address] PATHOLOGIST CIVIL ENGINEER LAND DEVELOPMENT EDDIE CORTÉS M.D. Performed By: #### C OVID-19 LUCAS, SOFIANEG #### [facility] [address] [place] [address] COVID-19 Antigenon 2 COVID-19 Antigen Healthcare Worker?: [...] its performance Lucas Disclaimer characteristic determined by [employer] and Lucas Disclaimer validated at [facility]. This Lucas Disclaimer test has not been [...] is terminated or revoked sooner. PERFORMED BY: [place] [address] PATHOLOGIST CIVIL ENGINEER LAND DEVELOPMENT EDDIE CORTÉS M.D. Normal [facility] Comment on above: Performed By: #### S OFJOSE ANGELEG, COVID-19 LUCAS #### [address] Lucas Ag Negativeon 07-16-19 22 Lucas Ag Negative Negative Normal Negative [facility] Comment on above: Result Comment: This is a duplicate Lucas SARS Antigen (REINIER) result to be used for statistical tracking purpose only. PERFORMED BY: [place] [address] PATHOLOGIST CIVIL ENGINEER LAND DEVELOPMENT EDDIE CORTÉS M.D. Performed By: #### C UU #### [facility] [address] [place] [address] #### VAGINITIS+ #### [facility] , Patient Educationon 04-08-20 21 Patient Education Pediatrics BMI for Children and [...] meters squared number. To calculate BMI with Kyrgyz measurements: 1. Measure weight in lb. 2. [...] people from 2?20 years of age. Health rn medicare use the charts to identify underweight and [...] 08/20/2004 Document Revised: 05/13/2018 Document Reviewed: 11/11/2016 collegefeed Patient Education ? 2019 C[employer] Podium. Normal [facility] Urinalysis - AUTOMATEDon Appearance (U) cloudy RNDOMN Other Bilirubin Ql (U) Negative [employer] Other Color (U) yellow [employer] Other Glucose Ql (U) Negative RNDOMN Other Hemoglobin Ql (U) Negative [employer] Other Ketones Ql (U) Negative RNDOMN Other Leukocyte esterase Test strip Ql (U) small [employer] Other Nitrite Ql (U) Negative [employer]NDOMN Other pH (U) 8.5 [pH] [employer] Other Protein Ql (U) Negative RNDOMN Other Specific gravity (U) [Rel density] 1.025 [employer] Other Urobilinogen (U) [Mass/Vol] 1.0 mg/dL [facility] [email or web address] Other Urinalysis - AUTOMATED [facility] [email or web address] Other Urine Cultureon 04-08-2021 Bacteria identified Cx Nom (U) Reason for Exam Vaginal discharge Urine 75,000 colonies/ml mixed bacterial skin contaminants 2 Days PERFORMED BY: [place] [address] PATHOLOGIST CIVIL ENGINEER LAND DEVELOPMENT EDDIE CORTÉS M.D. [facility] Comment on above: Performed By: #### C UU #### [address] #### VAGINITIS+ #### [facility] , Vaginitis Plus (VG+)on 04-08 Atopobium Vaginae Low - 0 Normal . [facility] Comment on above: Order Comment: Reaso n for Exam High risk bisexual behavior Performed By: #### C UU #### [address] #### VAGINITIS+ #### [facility] , BVAB2 Low - 0 Normal . [facility] Comment on above: Order Comment: Reaso n for Exam High risk bisexual behavior Performed By: #### C UU #### [facility] [address] [place] [address] #### VAGINITIS+ #### [facility] , Makayla Albicans, YUNIOR Positive Critically abnormal Negative [facility] Comment on above: Order Comment: Reaso n for Exam High risk bisexual behavior Result Comment: This test was developed and its performance characteristics determined by [facility]. It has not been cleared or approved by the Food and Drug Administration. Performed By: #### C UU #### [facility] [address] [place] [address] [place] #### VAGINITIS+ #### [facility] , Makayla Glabrata, YUNIOR Negative Normal Negative [facility] Comment on above: Order Comment: Reaso n for Exam High risk bisexual behavior Result Comment: This test was developed and its performance characteristics determined by [facility]. It has not been cleared or approved by the Food and Drug Administration. PERFORMED BY: [place] [address] PATHOLOGIST CIVIL ENGINEER LAND DEVELOPMENT EDDIE CROTÉS M.D. Performed By: #### C UU #### [address] #### VAGINITIS+ #### [facility] , Chlamydia Trachomotis, YUNIOR Negative Normal Negative [facility] Comment on above: Order Comment: Reaso n for Exam High risk bisexual behavior Performed By: #### C UU #### [facility] [address] [place] [address] #### VAGINITIS+ #### [facility] , Megasphaera Low - 0 Normal . [facility] Comment on above: Order Comment: Reaso n [...] Administration. Performed By: #### C UU #### [facility] [address] [place] [address] [place] #### VAGINITIS+ #### [facility] , Neisseria Gonorrhoeae, YUNIOR Negative Normal Negative [facility] Comment on above: Order Comment: Reaso n for Exam High risk bisexual behavior Result Comment: Perf ormed at: =G - [facility] [address] [place] [id number] Skiving Machine Operator: Kim Anderson MD, Phone: [phone] Performed By: #### C UU #### [facility] [address] [place] [address] [place] #### VAGINITIS+ #### [facility] , Tric Vag YUNIOR Negative Normal Negative [facility] Comment on above: Order Comment: Reaso n for Exam High risk bisexual behavior Performed By: #### C UU #### [facility] [address] [place] [address] [place] #### VAGINITIS+ #### [facility] , XR [...] Josué Erickson MD 11/15/19 Final result Normal [facility] Normal right femur x-rays. [place], [place] RIGHT FEMUR X-RAYS, 11/15/2019. HISTORY: Right hip and leg pain. COMPARISON: None. FINDINGS: AP and lateral views of the right femur were obtained. Bone mineralization is normal. Alignment is normal. There is no fracture. No dislocation. No degenerative changes. [place], [place] Sam, [facility] Incoming Radiant Results From [employer] - 11/15/2019 6:01 PM EDT RIGHT FEMUR X-RAYS, 11/15/2019. HISTORY: Right hip and leg pain. COMPARISON: None. FINDINGS: AP and lateral views of the right femur were obtained. Bone mineralization is normal. Alignment is normal. There is no fracture. No dislocation. No degenerative changes. IMPRESSION: Normal right femur x-rays. [place], [place] ED Provider Noteon 9 Protein mass conc B [facility] eMERGENCY dEPARTMENT eNCOUnter Pt Name: Maribel Velez Birthdate 2000 Date of evaluation: 08/10/2018 Provider: Marek Watts, RETORT OPERATOR - AGRICULTURAL AIRCRAFT PILOT I have evaluated this patient on my own, per my scope of practice with attending physician available for consultation CHIEF COMPLAINT Chief Complaint Patient presents with ? URI HISTORY OF PRESENT ILLNESS (Location/Symptom, Timing/Onset,Context /Setting, Quality, Duration, Modifying Factors, Severity) Note limiting factors. HPI Maribel Velez is a 18 y.o. female who [...] the Claritin, Tessalon, increase fluids, rest. Take hwza-orv-pzulqel Tylenol or ibuprofen as if her pain. [...] Discharge 08/10/2018 10:34:25 AM PATIENT REFERRED TO: [place] [address] [address] [facility] [phone] Call As needed DISCHARGE MEDICATIONS: New [...] Provider KARMEN Urrutia CNP 08/10/18 1037 Normal [facility] Vital Signs Date Time Vital Sign Value Performing Clinician Facility 02-13-2022 07:25-0400 Diastolic blood pressure 98 mm[Hg] Kevin Santoro [employer] 02-13-2022 07:25-0400 Systolic blood pressure 153 mm[Hg] Kevin Santoro [employer] 02-13-2022 06:20-0400 Body temperature 98.24 [degF] Kevin Santoro [facility] 02-13-2022 06:20-0400 Diastolic blood pressure 74 mm[Hg] Keivn Santoro [employer] 02-13-2022 06:20-0400 Heart rate 75 /min Kevin Santoro [employer] 02-13-2022 06:20-0400 Respiratory rate 20 /min Kevin Santoro [employer] 02-13-2022 06:20-0400 SaO2% (BldA) [Mass fraction] 98 % Kevin Santoro [facility] 02-13-2022 06:20-0400 Systolic blood pressure 119 mm[Hg] Kevin Santoro [facility] 10-19-2021 17:09-0400 Body temperature 98.96 [degF] Miko Kaur [facility] 10-19-2021 17:09-0400 Diastolic blood pressure 84 mm[Hg] Miko Kaur [facility] 10-19-2021 17:09-0400 Heart rate 89 /min Miko Kaur [facility] 10-19-2021 17:09-0400 Respiratory rate 17 /min Miko Kaur [facility] 10-19-2021 17:09-0400 SaO2% (BldA) [Mass fraction] 100 % Miko Kaur [facility] 10-19-2021 17:09-0400 Systolic blood pressure 138 mm[Hg] Miko Kaur [facility] 09-17-2021 15:00-0400 Body weight 61.69 kg Amy Tang Other [facility] 06-25-2021 15:15-0500 Body weight 62.6 kg Amy Tang Other [facility] 04-08-2021 14:50-0400 Body height 163.83 cm Maribel Randall Other [facility] 04-08-2021 14:50-0400 Body mass index (BMI) [Ratio] 24.84 kg/m2 Maribel Randall Other [facility] 04-08-2021 14:50-0400 Body temperature 98.2 [degF] Maribel Randall Other [facility] 04-08-2021 14:50-0400 Body weight 66.68 kg Maribel Randall Other [facility] 04-08-2021 14:50-0400 Diastolic blood pressure 80 mm[Hg] Maribel Randall Other [facility] 04-08-2021 14:50-0400 Respiratory rate 18 /min Maribel Randall Other [facility] 04-08-2021 14:50-0400 SaO2% (BldA) [Mass fraction] 100 % Maribel Randall Other [facility] 04-08-2021 14:50-0400 Systolic blood pressure 131 mm[Hg] Maribel Randall Other [facility] Other Encounters Encounter Date Encounter Type Care Provider Facility Start: 01-20-2024 End: 01-20-2024 ambulatory KEITH JARRELL Not Available Start: 08-12-2023 End: 08-12-2023 ambulatory AMBREEN DAN Not Available Start: 07-10-2022 End: 07-10-[address] AMRIT VEE Facility:[facility] Start: 06-17-2022 End: 06-17-[address] JAYSON FIORE Facility:[facility] Start: 03-02-2022 End: 03-02-2022 ambulatory Lucia Thoren Facility:[facility] Start: 03-02-2022 End: 03-02-2022 Departed Referred MD Lucia Thorne Work Phone: [facility] Start: 02-13-2022 End: 02-13-2022 Emergency department patient visit Kevin Santoro [facility] Start: 02-03-2022 End: 02-03-2022 Patient encounter procedure CAITIE MARSHALL [facility] Start: 01-15-2022 End: 01-16-[address] NAIMA PEREZ Facility:[facility] Start: 10-19-2021 End: 10-19-2021 Emergency department patient visit Miko Kaur [facility] Start: 09-19-2021 End: 09-20-[address] NAIMA PEREZ Facility:[facility] Start: 09-17-2021 End: 09-17-2021 ambulatory Amy Tang Other [facility] Other Start: 09-17-2021 Office outpatient visit 15 minutes Amy Tang [facility] Start: 08-05-2021 End: 08-05-2021 ambulatory Amy Tang Facility:[facility] Start: 08-01-2021 End: 08-01-2021 ambulatory Amy Tang Other [facility] Other Start: 08-01-2021 Telephone encounter Amy Tang [facility] Start: 07-29-2021 Telephone encounter Amy Tang [facility] Start: 07-29-2021 End: 07-29-2021 ambulatory Amy Tang [facility] Other Start: 07-25-2021 End: 07-25-2021 ambulatory Amy Tang Facility:[facility] Start: 07-16-2021 End: 07-16-2021 ambulatory Amy Tang Facility:[facility] Start: 06-25-2021 End: 06-25-2021 ambulatory Amy Tang Other [facility] Other Start: 06-25-2021 Office outpatient visit 25 minutes Amy Tang [facility] Start: 04-08-2021 End: 04-08-2021 ambulatory Maribel Randall Facility:[facility] Start: 04-08-2021 Office outpatient visit 15 minutes Maribel Randall [facility] Start: 11-15-2019 End: 11-18-2019 Patient encounter procedure MICHAEL SMALLS [facility] Start: 11-15-2019 End: 11-17-2019 Subsequent hospital visit by physician Pauline Munoz Rad [facility] Rad[facility] Comment on above: Injury of right knee , initial encounter Start: 11-15-2019 End: 11-18-2019 Patient encounter procedure MICHAEL SMALLS [facility] Start: 11-15-2019 End: 11-17-2019 Subsequent hospital visit by physician Naima Perez [facility] Start: 08-10-2018 Emergency department patient visit UNKNOWN PROVIDER [facility] Procedures Date Procedure Procedure Detail Performing Clinician Start: 01-24-2020 Arthroscopy of knee Miko Kaur Start: 11-15-2019 Radiologic examinati on femur minimum 2 views MIHCAEL SMALLS Start: 11-15-2019 Radiologic examinati on femur minimum 2 views Michael Smalls Other Phone: Plan of Treatment Date Care Activity Detail Author Start: 02-13-2020 Influenza vaccination Flu vaccine (Season Ended) [place], [place] Start: 2018 Meningococcal (ACWY) vaccine (1 - 2-dose series) Meningococcal (ACWY) vaccine (1 - 2-dose series) [place] Start: 2018 Screening for Chlamydia trachomatis Chlamydia screen [place], [place] Start: 2017 HIV screening HIV screen [place] Start: 2013 HPV vaccine (1 - 2-dose series) HPV vaccine (1 - 2-dose series) [place] Start: 2009 DTaP/Tdap/Td vaccine (1 - Tdap) DTaP/Tdap/Td vaccine (1 - Tdap) [place] Start: 2003 Hepatitis A vaccine (1 of 2 - 2-dose series) Hepatitis A vaccine (1 of 2 - 2-dose series) [place] Start: 2003 Measles,Mumps,Rubella (MMR) vaccine (1 of 2 - Standard series) Measles,Mumps,Rubella (MMR) vaccine (1 of 2 - Standard series) [place] Start: 2003 Varicella vaccine (1 of 2 - 2-dose childhood series) Varicella vaccine (1 of 2 - 2-dose childhood series) [place] Start: 2002 Polio vaccine (1 of 3 - 4-dose series) Polio vaccine (1 of 3 - 4-dose series) [place] Start: 2002 Hepatitis B vaccine (1 of 3 - 3-dose primary series) [place] Atopobium vaginae DN A [Presence] in Vaginal fluid by YUNIOR with probe detection [facility] Work Phone: Bacteria identified in Urine by Culture [facility] Bacterial vaginosis associated bacterium 2 DNA [Presence] in Vaginal fluid by YUNIOR with probe detection [facility] Work Phone: Megasphaera sp type 1 DNA [Presence] in Vaginal fluid by YUNIOR with probe detection [facility] Work Phone: Payers Date Payer Category Payer Medicaid [id number] 2021 Self-pay [id number] 2018 Unknown [employer] xxxxxxxxxxx 2018-Present [phone] [address] [place] [address] xxxxxxxxxxx [id number] 2018 Unknown [id number] 2002 Unknown [id number] [id number]. 593 2002 Unknown [id number] 2.16.840.1.703560.3.579.2. 593 2002 Unknown [id number] 2.16.840.1.029644.3.579.2. 593 2002 Unknown [id number] 2.16.840.1.878304.3.579.2. 593 2002 Unknown [id number] 2.16.840.1.337284.3.579.2. 1259 1989 Unknown [id number] 2.16.840.1.558563.3.579.2. 174 1989 Unknown [id number] 2.16.840.1.609981.3.579.2. 174 1984 Unknown [id number] 2.16.840.1.104812.3.579.2. 668 1959 Medicaid [id number] Medicaid Private Health Insurance [facility] [id number] Unknown [id number] 2.16.840.1.865963.3.579.2. 531 Unknown [id number] [id number]. 531 Unknown [id number] 2.16840.1.014345.3.579.2. 531 Unknown [id number] 2.840.1.667427.3.579.2. 531 Unknown [id number] 2.840.1.278514.3.579.2. 531 Unknown [id number] [id number]. 531 Social History Date Type Detail Facility Start: 08-10-[address] [facility] Never smoker [facility] [place] Start: 08-10-2018 Alcohol intake Current non-dr electronic industrial controls mechanic of alcohol (finding) [place], [place] Sex Assigned At Not on file [place], [place] Sex Assigned At Female [facility] Other Tobacco smoking status No Smokin g Status Entered [facility] Start: 2002 Sex Assigned At Female F [facility] Functional Status Date Assessment Result Facility 02-13-2022 Functional Status N/A [facility] Clinical Notes 04-08-2021 to 02-13-2022 Note Date & Type Note Facility 02-13-2022 Evaluation + Plan note Extrac kasey from: Title:ED Note Author:Ana Braxton DO Date :02/13/22 Acute hemorrhoid (K64.9: Uns pecified [...] Rectal bleeding [facility]09-02-2022 Hospital Discharge instructions Patient Education 02/13/2022 07:28:37 Rectal Bleeding, Saoy-ek-Cvxz Rectal Bleeding Rectal bleeding is when blood [...] 02/10/2012 Document Revised: 05/13/2018 Document Reviewed: 07/26/2016 [employer] Patient Education 2020 [employer]. 02/13/2022 07:28:37 Hemorrhoids, Ugmp-sc-Hojl Hemorrhoids Hemorrhoids are swollen veins that may [...] 3 times a day. General instructions Take urkq-cld-esgidgp and prescription medicines only as told by [...] 03/09/2009 Document Revised: 06/08/2019 Document Reviewed: 10/20/2018 [employer] Patient Education 2020 [employer] Follow Up Care 02/13/2022 06:18:09 With:Yu GREENE Address: [facility] [address] [place], [place] [address] [address]- Business (1) When:02/16/2022 07:21:18 With:CAITIE MARSHALL Address:Unknown When:Within 3 Day(s) [facility]05-08-2022 Hospital Discharge instructions Patient Education 10/19/2021 17:18:27 Viral Respiratory Infection, Evuw-Uw-Oudm Viral Respiratory Infection A viral respiratory infection [...] at home: Managing pain and congestion Take jefv-vsf-petxqgk and prescription medicines only as told by [...] and water are not available, use hand hvac residential service technician. Avoid contact with people who are sick [...] 05/13/2009 Document Revised: 06/08/2019 Document Reviewed: 07/11/2018 [employer] Patient Education 2020 [employer] Follow Up Care 10/19/2021 17:07:38 With:Michelle Mata Address:Unknown When:10/22/2021 [facility]04-06-2022 Evaluation note* Encounter Date Diagnosis Assessment Notes Treatment Notes Treatment Clinical Notes Sep, Rectal bleeding (ICD-10 - K62.5) PATIENT STATES THIS HAPPENS EVERY COUPLE OF MONTHS Sep, Abdominal pain (ICD-10 - R10.9) PATIENT DID HAVE THIS LAST NIGHT ON THE RIGHT SIDE UNDER HER RIBS PATIENT DOES CONTINUE ON THE MEDICATION WILL ORDER SOME TESTING Sep, Diarrhea (ICD-10 - R19.7) [facility] Other 02-15-2022 Evaluation note* Encounter Date Diagnosis Assessment Notes Treatment Notes Treatment Clinical Notes Jul, Blood in stool (ICD-10 - K92.1) Jul, Abdominal pain (ICD-10 - R10.9) [facility] Other 01-12-2022 Evaluation note* Encounter Date Diagnosis Assessment Notes Treatment Notes Treatment Clinical Notes Jun, Diarrhea (ICD-10 - R19.7) Jun, Rectal bleeding (ICD-10 - K62.5) PATIENT ENCOURAGED TO HAVE A COLONOSCOPY START ABOVE MEDICATION Jun, Abdominal pain (ICD-10 - R10.9) [facility] Other 10-26-2021 Evaluation note* Encounter Date Diagnosis [...] up to a week to get back. [facility] Other Evaluation + Plan note No data available for this section [facility] noteNo InformationN[facility] [email or web address] Other Evaluation noteNo assessment information available [facility] Work Phone: History general Narrative - Reported* Type Description Date Medical History IBS Medical History Constipation Medical History allergies Surgical History right torn lateral meniscus [place] [facility] Other Hospital Discharge instructions No data available for this section [facility] No data available for this section [facility] Summary Purpose Family History No Family History Records Found Relationship Condition Age at Onset Recorded Date/T patrice grandparent Cardiovascular disease Unknown grandparent Malignant neoplasm of thyroid gland Unkno wn Not Specified Malignant neoplasm of ovary Unknown father Asthma Unknown brother Asthma Unknown Advance Directives No Advanced Directives Records FoundDocuments on File Type Date Recorded Patient Treer Expl anation Advance Directives and Living Will 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 Relations 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 Advance Directive Response Recorded Date/ Time Advance Directives No April 16, 2021 2:28pm Assessments Diagnosis Injury of right knee, initial encounter Chief Complaint and Reason for Visit Chief Complaint Dysuria Vaginal odor Additional Source Comments INFORMATION SOURCE (unrecogn ized section and content) DATE CREATED AUTHOR 08/20/2018 [employer] [facility] DATE CREATED AUTHOR AUTHOR'S ORGANIZ ATION 11/18/2019 [facility] DATE CREATED AUTHOR AUTHOR'S ORGANIZ ATION 02/17/2022 [facility] DATE CREATED AUTHOR AUTHOR'S ORGANIZ ATION 03/14/2022 [facility] DATE CREATED AUTHOR AUTHOR'S ORGANIZ ATION 07/13/2022 [facility] DATE CREATED AUTHOR AUTHOR'S ORGANIZ ATION 01/22/2024 [facility] Specialists EPIC REASON FOR VISIT (unrecogniz [...] BE BASED ON THE PRIMARY CLINICAL RECORDS. [facility] [employer] [facility]. provides no warranty or guarantee of the accuracy or completeness of information in this document.
--- NOTE | 2024-02-03 21:45 | ED.SKABFB1 ---
HPI - Skin/Abscess/Foreign Bdy General Chief complaint: Skin/Abscess/Foreign Body Stated complaint: RASH Time Seen by Provider: 02/03/24 21:40 Source: patient Mode of arrival: walk-in Limitations: no limitations History of Present Illness HPI narrative: patient presents with rash bilat legs at popliteal space. R>>L. mild itch. No fever or pain. no systemic symptoms Related Data Home Medications ?Medication ?Instructions ?Recorded ?Confirmed No Known Home Medications 05/31/23 05/31/23 Allergies Allergy/AdvReac Type Severity Reaction Status Date / Time red dye Allergy Unknown Hives Verified 02/03/24 21:29 Review of Systems ROS Status of ROS 10 or more systems reviewed and unremarkable except as noted in history and below [facility] Social History Smoking status: Current every day smoker Exam Constitutional Vital Signs, click to edit/add: Last Vital Signs Temp 98.4 F 02/03/24 21:29 Pulse 106 H 02/03/24 21:29 Resp 18 02/03/24 21:29 BP 149/93 H 02/03/24 21:29 Pulse Ox 100 02/03/24 21:29 O2 Del Method Room Air 02/03/24 21:29 Common normals: no apparent distress, average body habitus, oriented x3, no limitations, healthy appearing, alert and well nourished [facility] Common normals: normocephalic and head/scalp atraumatic Eye Common normals: PERRL, EOMs intact bilaterally and conjunctivae normal Respiratory Common normals: normal respiratory effort, no retractions, no use of accessory muscles and clear to auscultation bilaterally Cardio Common normals: regular rate, regular rhythm, S1 normal heart sound and S2 normal heart sound Extremity Extremity image (back): 1. rash-dry Neuro Common normals: oriented x3, CN's II-XII intact bilaterally, moves all extremities, no focal motor deficits and no sensory deficits noted Psych Appearance: grossly normal Course Vital Signs Vital signs: Vital Signs Temperature 98.4 F 02/03/24 21:29 Pulse Rate 106 H 02/03/24 21:29 Respiratory Rate 18 02/03/24 21:29 Blood Pressure 149/93 H 02/03/24 21:29 Pulse Oximetry 100 02/03/24 21:29 Oxygen Delivery Method Room Air 08/22/24 21:29 Temperature 98.4 F 02/03/24 21:29 Pulse Rate 106 H 02/03/24 21:29 Respiratory Rate 18 02/03/24 21:29 Blood Pressure 149/93 H 02/03/24 21:29 Pulse Oximetry 100 02/03/24 21:29 Oxygen Delivery Method Room Air 02/03/24 21:29 MDM - Skin/Abscess/Foreign Bdy MDM Narrative Medical decision making narrative: presents with eczematous appearing rash on her legs positioned mainly at the popliteal spaces. will plan to treat with Lidex cream and have her follow up with a family doctor Discharge Plan Discharge Stand Alone Forms: Work/School Release, Portal Instructions Chief Complaint: Skin/Abscess/Foreign Body Clinical Impression: Rash Patient Disposition: Home, Self-Care Prescriptions / Home Meds: No Action No Known Home Medications Print Language: [place] Instructions: Acute Rash (ED) Additional Instructions: follow up with your doctor next week Referrals: Physician,Non-Staff, MD [Primary Care Provider] - 1 week
--- NOTE | 2024-02-03 21:45 | PC.NURSE ---
Pt has rash to posterior right knee, has had for 14 weeks with no improvement using steroid cream. Pt is 14 weeks , no complaints at this time.
[2024-02-03 22:00] VITALS: BP 132/80; PULSE 87; O2SAT 99
== END 2024-02-03 22:00 | disposition home or self-care (01) ==
PROVIDERS: Emergency Provider Internal Medicine
DX: R21 Rash and other nonspecific skin eruption (principal); F17.200 Nicotine dependence, unspecified, uncomplicated
CPT/HCPCS: 99283

== ENCOUNTER 2024-02-17 11:40 | Outpatient (OUT) | payer MEDICAID, SELFPAY ==
[2024-02-19 01:07] LABS: AFP Value 26.1 ng/mL (.); Gest. Age on Collection Date 17.6 weeks (.); Insulin Dep Diabetes No (.); Maternal Age At EDD 21.9 yr (.); OSBR Risk 1 IN 10000 (.); Results Report (.)
== END 2024-02-17 11:41 | disposition home or self-care (01) ==
LOC: LAB 11:41
PROVIDERS: Visit Provider Obstetrics & Gynecology
DX: Z34.92 Encounter for supervision of normal pregnancy, unspecified, second trimester (principal); Z3A.17 17 weeks gestation of pregnancy
CPT/HCPCS: 36415; 82105

== ENCOUNTER 2024-02-17 19:14 | Outpatient (REF) | payer MEDICAID, SELFPAY ==
--- OUTSIDE RECORDS SUMMARY | 2024-02-17 19:18 | XMS_ITS | CCD ---
Author Organization [facility] Care Team Providers Care Disassembler Product Name Role Phone PROVIDER, UNKNOWN Attending Unavailable PROVIDER, UNKNOWN Referring Unavailable [place], PCP Primary Care Unavailable Naima Perez Primary Care Provider UnavailMICHAEL Staley Referring Unavailab NAIMA Asif Primary Care Unavailable MICHAEL SMALLS Referring Unavailab NAIMA Asif Primary Care Unavailable NAIMA PEREZ Primary Care Physician Maribel Randall Unavailable Amy Tang Unavailable CAITIE MARSHALL Primary Care Physician CAITIE MARSHALL Primary Care Physician ( [phone] MD Lucia Thorne Attending Provider Lucia Thorne Admitting Unavailable Lucia Thorne Attending Unavailable NON STAFF Primary Care Unavailable Amy Tang Attending Unavailable Amy Tang Admitting Unavailable Naima Perez Primary Care Unavailable Amy Tang Attending Unavailable Naima Perez Primary Care Unavailable Amy Tang Admitting Unavailable Maribel Randall Admitting Unavailable Maribel Randall Attending Unavailable [facility] Primary Care Unavaila ble Amy [...] G, DR NAIMA Joseph Primary Care Unavailable JOSEG, DR NAIMA Joseph Admitting Unavailable JOSE G, [...] media; 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: [red dye] Drug allergy 01-23-2017 19pay Other Medications Current Medications Medication Drug Class(es) [...] for 7 day(s), 15 gm, Refill(s) 0, 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 Venancio Soriano ER URINE PROFILEon 3 Bilirubin Ql (U) Negative Normal NEGATIVE [facility] Comment on above: Performed By: #### U MICRO, PREGU, ERUR #### [facility] [address] [address] [address] Venancio Soriano Clarity (U) CLEAR Normal CLEAR [facility] Comment on above: Performed By: #### U MICRO, PREGU, ERUR #### [facility] [address] [place] [place] [address] Dr. Venancio Soriano Color (U) LT. YELLOW Normal YELLOW [facility] Comment on above: Performed By: #### U MICRO, PREGU, ERUR #### [facility] [address] [address] [address] Venancio FREEMAN A micrscopic examination will be performed if indicated. Normal [facility] Comment on above: Performed By: #### U MICRO, PREGU, ERUR #### [facility] [address] [address] [address] Venancio Soriano Glucose Ql (U) Negative Normal NEGATIVE [facility] Comment on above: Performed By: #### U MICRO, PREGU, ERUR #### [facility] [address] [address] [address] Venancio Soriano Hemoglobin Ql (U) TRACE-INTACT Abnormal NEGATIVE [facility] Comment on above: Performed By: #### U MICRO, PREGU, ERUR #### [facility] [address] [place] [place] [address] Dr. Venancio Soriano Ketones Ql (U) Negative Normal NEGATIVE [facility] Comment on above: Performed By: #### U MICRO, PREGU, ERUR #### [facility] [address] [place] [address] Dr. Venancio Soriano LEUKOCYTES SMALL Abnormal NEGATIVE [facility] Comment on above: Performed By: #### U MICRO, PREGU, ERUR #### [facility] [address] [address] [address] Venancio Soriano Nitrite Ql (U) Negative Normal NEGATIVE [facility] Comment on above: Performed By: #### U MICRO, PREGU, ERUR #### [facility] [address] [address] [address] Venacnio Soriano pH (U) 6.0 [pH] Normal 5-9 [facility] Comment on above: Performed By: #### U MICRO, PREGU, ERUR #### [facility] [address] [address] [address] Venancio Soriano SPEC GRAVITY 1.025 Normal 1.005-<=1.02 5 [facility] Comment on above: Performed By: #### U MICRO, PREGU, ERUR #### [facility] [address] [address] [address] Venancio Soriano UA PROTEIN Negative Normal NEGATIVE/ TRACE [facility] Comment on above: Performed By: #### U MICRO, PREGU, ERUR #### [facility] [address] [address] [address] Venancio Soriano UR MICRO IND INDICATED Normal [facility] Comment on above: Performed By: #### U MICRO, PREGU, ERUR #### [facility] [address] [address] [address] Venancio Soriano Urobilinogen Qn (U) 0.2 {Erick'U}/dL Normal 0.2 - 1. 0 [facility] Comment on above: Performed By: #### U MICRO, PREGU, ERUR #### [facility] [address] [address] [address] Venancio Soriano URon 07-10-2022 , QUAL Negative Normal NEGATIVE [facility] Comment on above: Performed By: #### U MICRO, PREGU, ERUR #### [facility] [address] [address] [address] Venancio Soriano URINE MICROSCOPIC ONLYon 01- 27-2023 BACTERIA TRACE Abnormal NONE SEEN [facility] Comment on above: Performed By: #### U MICRO, PREGU, ERUR #### [facility] [address] [address] [address] Venancio Soriano Bacteria identified Cx Nom (U) INDICATED Normal [facility] Comment on above: Performed By: #### U MICRO, PREGU, ERUR #### [facility] [address] [address] [address] Venancio Soriano CAST NONE SEEN Normal NONE SEEN [facility] Comment on above: Performed By: #### U MICRO, PREGU, ERUR #### [facility] [address] [address] [address] Venancio Soriano Crystals LM Nom (Urine sed) NONE SEEN Normal NONE SEEN [facility] Comment on above: Performed By: #### U MICRO, PREGU, ERUR #### [facility] [address] [place] [address] Dr. Venancio Soriano Epithelial cells LM Ql (Urine sed) RARE Normal NONE SEEN /RARE [facility] Comment on above: Performed By: #### U MICRO, PREGU, ERUR #### [facility] [address] [address] [address] Venancio Soriano MUCOUS NONE SEEN Normal NONE SEEN [facility] Comment on above: Performed By: #### U MICRO, PREGU, ERUR #### [facility] [address] [address] [address] Venancio Soriano RBC 0-2 Normal 0-2 [facility] Comment on above: Performed By: #### U MICRO, PREGU, ERUR #### [facility] [address] [address] [address] Venancio Soriano WBC 5-10 Abnormal NONE SEEN [facility] Comment on above: Performed By: #### U MICRO, PREGU, ERUR #### [facility] [address] [address] [address] Venancio Soriano Urine Cultureon 03-02-2022 Bacteria identified Cx Nom (U) Reason for Exam Dysuria Urine No Growth 2 Days PERFORMED BY: [facility] [address] [place] [address] PATHOLOGIST HEAVY THREADER EDDIE CORTÉS M.D. Normal [facility] Comment on above: Performed By: #### V AGINITIS+ #### [facility] , #### CUU #### [facility] [address] [place] [address] Vaginitis Plus (VG+)on 03-02 Atopobium Vaginae Moderate - 1 Normal . [facility] Comment on above: Order Comment: Reaso n for Exam Vaginal odor Performed By: #### V AGINITIS+ #### [facility] , #### CUU #### [facility] [address] [place] [address] BVAB2 Low - 0 Normal . [facility] Comment on above: Order Comment: Reaso n for Exam Vaginal odor Performed By: #### V AGINITIS+ #### [facility] , #### CUU #### [address] Makayla Albicans, YUNIOR Negative Normal Negative [facility] Comment on above: Order Comment: Reaso n for Exam Vaginal odor Result Comment: This test was developed and its performance characteristics determined by [facility]. It has not been cleared or approved by the Food and Drug Administration. Performed By: #### V AGINITIS+ #### [facility] , #### CUU #### [facility] [address] [place] [address] Makayla Glabrata, YUNIOR Negative Normal Negative [facility] Comment on above: Order Comment: Reaso n for Exam Vaginal odor Result Comment: This test was developed and its performance characteristics determined by [facility]. It has not been cleared or approved by the Food and Drug Administration. PERFORMED BY: [place] [address] PATHOLOGIST HEAVY THREADER EDDIE CORTÉS M.D. Performed By: #### V AGINITIS+ #### [facility] , #### CUU #### [facility] [address] Chlamydia Trachomotis, YUNIOR Negative Normal Negative [facility] Comment on above: Order Comment: Reaso n for Exam Vaginal odor Performed By: #### V AGINITIS+ #### [facility] , #### CUU #### [address] Megasphaera Low - 0 Normal . [facility] Comment on above: Order Comment: [...] developed and its performance characteristics determined by [employer]. It has not been cleared or approved by the Food and Drug Administration. Performed By: #### V AGINITIS+ #### [facility] , #### CUU #### [address] Neisseria Gonorrhoeae, YUNIOR Negative Normal Negative [facility] Comment on above: Order Comment: Reaso n for Exam Vaginal odor Result Comment: Perf ormed at: =G - [facility] [address] [id number] Help Desk Manager: Kim Anderson MD, Phone: [phone] Performed By: #### V AGINITIS+ #### [facility] , #### CUU #### [address] Tric Vag YUNIOR Negative Normal Negative [facility] Comment on above: Order Comment: Reaso n for Exam Vaginal odor Performed By: #### V AGINITIS+ #### [facility] , #### CUU #### [address] Coding Summary.on 02-17-2022 Coding Summary. [id number] Gh0bWw+PGhlYWQ+PE1FV LYsD72wpSZjnH0MZ5kCP X2SGTZFLFNHBQ2USQ7ed RO4CAyuL0UxefWi BbuajLBsWO47OIb1NJB2 hHhjHRwbkD1xsKKgH6p6 BtWbZI87hD70HOgpCGFi HaQ7JzPfipyirCLw F3ysRaJzkFBfFby+PHRh YmxlIHdpZHRoPScxMDAl AsPubFwfHL9xKo5pOTOw LWNvbGxhcHNlOiBj a3ypMKYbOWucEJ3plWmd I4YczSF5DUJgu5t8Cg15 dHI+DCVeSQO7kJbfPQsf h283IhVkw2ioNSD4 jDYmJOicORN1T58gp8A9 GBQeNZKsXTA2bYA8cT4t jXwnrqnsW2SarFMzSbL8 ODT9iRFraS6doHby vyfkqS9eVeb+V52ZTK2Y NGRNTP2RXec1A9XmYehd dHI+YL02VIZlEB72kQYz tMBuu0zyhRw1KpSl ARPjHNV6kYnaAXhfq4Lp THXkG48leLZic9R3SJEy kAnmqAKaXzDngMN0yL3n FBpfapjmc1umsyie Iegos9fdnt27hZ48L10d HUopILZrADT0KLQsPHSc jVtbap0zhW2rJf4+IDxj b4ovo9rxxCa2OhGm LDWjcyUsaVlbRZI9k6Ig Dz90K0BadTmts3OzEbj6 re65rIKmo2X3tMI2CCyw MEUbbP2qIMecTjE6 MHVfDpHupO77lZElLEpk Qd6ydFulaOogGU3tBSFb njqzIXNhbA1wOSCbhFWr oRfmSZ9nGCXkfvrn v725AcElOEX7WUHywTIt N6YnvG1nBlNdNRIcUWHk Y3ZrwNSbFSvfY591XFhn VdH3KQRpjlHpE9Nl YDAudJxfPtZ1i5W6Ve5G z4BssdmnETJ3IItzYQG4 QyR6AbZcVqO1M9MhTpu5 JSDjfPblMX5xA0Io TEQchmipcbwilKS1BZQe SVRzcI18lVVyMZggOw1w z3A6s417TOKbRUMuvA50 Jw4ybNzkXVTwdVCT hP4hnbbgf1ukouwkNkRe WILaOVr1OPu4CQHukZce WzVmEJR9XfE4DNA6vRCf wF4loTqyypfzgX7g Oyc+C42nfA9lSNA7SEZ8 croyYCYfqrRuAC67II85 M6LkKcpyuKKadVY+PGRp pdWvvVnuYU8kGfTa b7hle3GeYZbkF7BrHPHn LScbIod4LPNbQII0zZQ3 sU1sAJDdJNsay2Z9hWU6 B2LdvfTdbo8zt5bk LZVfCBgbI88wtBWfg3U9 CRPxlDZ6VSNcgVwhFwEz rR29Acn+FUFqfOuxp5Af Xoisa9qvy0rrlIt9 IjMwJSIgdmFsaWduPSJ0 q5WpNn14I41hNBkyFLCy CITmEIDdMXBblGnzrh9z cU8iTa8+PGNvbCB3 pCS9tR0eYXIpIoO5BHob S712LzHxpXRwXsumh0zy q1jssAa1QqWwMHYmbeUx wUnqCWC2s4WdHr52 A58oQCwqHXAiGLGkPYOo YIXzrSprhw6xqL5rPm5+ JC8lj0ponp76hQ36bQP+ RIVrGNF2tXwyEJms AXUcgE7pDXztOgK3WUBi HvDvqM33jRWvFTacDi0c mNmttOukIY2sZBUlkyjd w106ZjIsy9ibOXZb nCViLVgjZEE7D25eg8O8 VTFwQPPoOGL0cTL0kY5g bGlnbjogbGVmdDsgdmVy yEraCRloUMtfI501 IHRvcDsnPlBhdGllbnQg UdXdEXk6E6HoZzq1DWBm qOpfWR9jsHVlOUkfDt4m xAtiwGejGG0xETCl qdczo262IbKvf4xrDUGu rJJtCDsqUQC4Y66du8H4 YTEtSRRwHKX2iMA8aE7r bGlnbjogbGVmdDsg fmAzjRmtVZjzWNisR652 IHRvcDsnPkJpcnRoIERh wFV4ZE29EH49kEAgc3E7 nCU4P6QjPEHpgubh tcwetRB2KJKcQOWylM49 Yc0opCmvHk8fLIOtHKN9 KFGzgROrN7YmgO4fBnPp JZYsGCIkX0UxfHZy FNayT127FWjpOfB0SQMw byFtB1MpBHGgeFjcQlD1 p7C7St1JD1N9CE98XE95 uMIhs4Y8fEU6E3Mq MSJygaaqsptruOP6XJFl EWWdeE71Mp3psGgaZm5a VJGnPWB7SSRteWVxN9Sy yL4zCrEeCLNnLWRl X1CntIOdEAokO565PTuh CqM0QQJhuvLoI4MgVMYf hEllIlO7e0V6Ja5UIAg4 SZ89OP02tVOiu1S1 fNB0I3YvIOBekdfwxccj cCN1GUOyBHRcnD57Vb0h qWfuPl9cUYNhAAP5FLSr rCMqU5JuaH0fLcSu ENTkNDUzT7SieYPeYXfj S250IZhhVwL8AULdmvSe Q7NtBPTpgLfzRoI7w3P2 Vt5OLVZxWA68HUL4 yNP4ZX63PM32R1YtHgry dGFibGU+PHRhYmxlIHdp ZHRoPScxMDAlJyBzdHls LU6oHb3zUQGaAPCn eIfhzZUzImRwx5uiSPTp RXlrDS5dsScdT7BpoHO5 DWLuh1u4Uv69N35eR0Dt dXA+YKDmpCR7aGF2 hA6rNlMoSiI5BDjcK838 RbMseEIpPjvmf3nec1op lUp1ZxY1IJUezkGswYzm WQU7h6JxCj90Y52i IHdpZHRoPSIxNSUiIHZh jPiypj7heF7zKu3+PGNv xQF3hDV8fD7iZvNeZiB6 ZCedH807BmDxjVXj Caxcx2poq5uywWy8AoBc RWUfvpTsbOyaLZB0p8Ya Kz54Q6HcoXuss9QaNfz8 vf85cIZcq3B0tYG4 F2BzSFEcljvyeIVpqXhg XQ3zFWXaccvkCZWwmU0y PKVdB0l8PwMsPzD8GLtq L0DpooJ5IMQorTMq PKwvZOM3I41xr2M4YKEa OUUuDWN7zVE2eM7qnQyy bjogbGVmdDsgdmVydGlj HEkbBXmgC137GZXo hMhyRQFohR9wONMqxEHu cIkpNK9jFXBdsgukIoWI QLoSLHfxG3GAFQwWOmdJ AR61ZY33jHDop7E1 nME7W9EhBHJtccgumhxe zHU3JVNvDIFwqJ87yISr QIhjYy2pd0U7z700KHHd WMEebO88La3diXel FVZphZSIdL1alzets2bc ndkaQxWgYIMaQXm4YBv9 OVNfbThmTwFjFVZ9ZhA4 MAL7eRMphE9xoGvw zwdivH0lNqn+MDIvMTkv MjAwMzwvdGQ+PHRkIHN0 rTtmIMzsMOKjoT1eWYNl D2r4QgVyKiF6OPqu N7UzPZArarpoTf78dM5x EfQcOdF4COnvL9GefsE1 WCNtrVOtBHzqRCV9T95s d4S1HNEgGERgUEW6 jZL7fG2cuKzkxsxaxPLq dDsgdmVydGljYWwtYWxp A272GKEjtKazGpM6BDka IVNuUT50BF97dFYu w8B5iPN5W6PzSIQcmttc pmakkXL0HCXdCVNvnP69 kTIzCZtmAo6he9I7d006 YUFmYZWvxZ35Dn1t xIhtWJGdtUUNaM2ujbun m5bkrkgvAySoZXJwXYi5 CYv4YZRhtKjuGrAlSPO6 EmQ7QCO2fRFgeG6s hEenqwutkG9xZfc+RmVt YXauHQ67SY99tIRnw1N5 lAP9A1ZtSDIorhhnwfgk dVW4GGVlJJHmlQ64 bKPjBHvdEh6sk8A2o029 QDHmYZSrrH27Ms3rwVzh BGResMIVwJ4szqmmz1yc cjogIzAwMDAwMDt0 MBh5ORTdlZlhRhNuUKS1 UsV0XAG1kFGglZ5dfOxz fbsgdI5zLdv+HX0exidf mtS1BZ68HI23R0Zy PjwvdGFibGU+PHRhYmxl IHdpZHRoPScxMDAlJyBz jIxjKA5kOh9dHWKcHBSk lKvtaFGnXkPhc7tb TEGoHMgoXQ5ncBksD9Rc oTZ1HUQso9y8Or89F89q U8YisTW+OIZrgGM4xJF8 zC6wViFtWgO8TPjj C581KgUjdSApXmwew2na o1ensHj2InIeVRMzoxNu tGssDDO4h4FwMv09K80p IHdpZHRoPSIyMCUi DUTapIngut2jvG3wRb1+ YTUcuVA7oIP6wA5hYyVl KqO7FPpoC036TjRwtQXw EeunW23iR6HjzZS+ CNQgWjr3SCZsdGoyGG6o rWQuDIsdUq8hDJC8FsUr QyCnDIgmG6EcUDSuuhuu yriqeRT1IGEkZJIm uL51Tt3vjFjoHs3qMQAn SVT1RMLbxAXrJ3BoiR6k PjJdTSPcPMGmO8OjlJLb SNkhF734BXirPiR1 OVDnndHvZ4BwNULweVhs WfB2n1F5Cj7GlRnadHXn PD8aZbIcXSt8U9SfIdx5 IKAchZjpTK7uaMXn NCeaKw0haGxhiEmsSN3v JUYehxcoy806CqBjt2hq QSFlmLVkVCmqJZP4W48u i3N6ULTbJZRwPUT3 lQN7qY2aqAdacmerbCTl dDsgdmVydGljYWwtYWxp T204CVYajDfmHuXYLfp2 D6WhQti5OROjuBjz CM7hcJYuBPrzCe9htEcx fZgsRB3mWAFvlfdng017 BxEml4wsKATkzCXpKTga FHB3D18ry9K5KCWn VXPgFXJ2uFP0fQ2ukTez bjogbGVmdDsgdmVydGlj OVemWWqtQ963PWKqiAut Tf0TRmh4K3QaRdo9 EJNfeGtsXU5dgOKtQLnp Yd4puHfeiTnjNT4eLYGs eyvig012ZxKuo5usORZb aGYqAVbeWRZ2B57w f9S3SZPxIVRaKTI9bYB4 zJ5msTbzfgvhpFYxoKwg tgNyzSxuBAspAYgcA122 IHRvcDsnPlBheWVy OjwvdGQ+RU53pf74D8Sl ZabnLtq2GGIlDVR2oRW3 wY1vNBHrUEmsd8Q5oLK6 Z0LrzqZkqp5di5ww YXBz (more content not included)... Normal [facility] Auto Diffon 02-13-2022 Basophils/100 WBC (Bld) 0.9 % Normal 0.0-2.0 [facility] Comment on above: Order Comment: Order Added by Discern Expert. Performed By: #### 2 252690, 9573666, 18356992, 8426358, 04573149 ####[address] [address] Basophils/Leukocytes Auto (Bld) [Pure # fraction] 0.1 E9/L Normal 0.0-0.2 [facility] Comment on above: Order Comment: Order Added by Discern Expert. Performed By: #### 2 691798, 8419061, 39239602, 0237720, 03864061 ####[address] [address] Eosinophils/100 WBC (Bld) 0.6 % Normal 0.0-8.0 [facility] Comment on above: Order Comment: Order Added by Discern Expert. Performed By: #### 2 907344, 0801772, 55765204, 5731529, 22519342 ####[address] [address] Eosinophils/Leukocyte s Auto (Bld) [Pure # fraction] 0.0 E9/L Normal 0.0-0.5 [facility] Comment on above: Order Comment: Order Added by Discern Expert. Performed By: #### 2 408229, 5268888, 73605779, 1912268, 54839883 ####[address] [place] [address] Lymphocytes/100 WBC (Bld) 46.4 % Normal 14.0-50.0 [facility] Comment on above: Order Comment: Order Added by Madeleine Expert. Performed By: #### 2 736477, 4660911, 39008165, 6289561, 95095830 ####[address] [place] [address] Lymphocytes/Leukocyte s Auto (Bld) [Pure # fraction] 3.1 E9/L Normal 1.0-4.0 [facility] Comment on above: Order Comment: Order Added by Discern Expert. Performed By: #### 2 332115, 4811813, 30458304, 7444334, 20397532 ####[address] [place] [address] Monocytes/100 WBC (Bld) 8.2 % Normal 4.0-14.0 [facility] Comment on above: Order Comment: Order Added by Madeleine Expert. Performed By: #### 2 013823, 5770794, 13333455, 0417565, 13028813 ####[address] [address] Monocytes/Leukocytes Auto (Bld) [Pure # fraction] 0.6 E9/L Normal 0.2-1.0 [facility] Comment on above: Order Comment: Order Added by Madeleine Expert. Performed By: #### 2 992469, 0258588, 52242478, 6564661, 72344255 ####[address] [address] Neutrophils/100 WBC (Bld) 43.9 % Normal 36.0-75.0 [facility] Comment on above: Order Comment: Order Added by Madeleine Expert. Performed By: #### 2 769702, 4626627, 88765050, 0760376, 99587234 ####[address] [address] Neutrophils/Leukocyte s Auto (Bld) [Pure # fraction] 3.0 E9/L Normal 2.0-7.5 [facility] Comment on above: Order Comment: Order Added by Madeleine Expert. Performed By: #### 2 492053, 9004165, 30644355, 6709413, 99669403 ####[facility] [address] [place] [address] BB Draw & Holdon 02-13-2022 BB D&H Sample drawn for Blood Ba Normal [facility] Comment on above: Performed By: #### 2 351158, 5859051, 85864867, 3470667, 10391538 ####[facility] [address] [place] [address] CBC w/ Auto Diffon Erythrocyte distribution width (RBC) [Ratio] 13.3 % Normal 10.9-14.2 [facility] Comment on above: Performed By: #### 2 067757, 2412426, 73563264, 6531799, 75679846 ####[facility] [address] [place] [address] Hematocrit (Bld) [Volume fraction] 34.1 % Normal 34.0-46.0 [facility] Comment on above: Performed By: #### 2 128738, 4938169, 03277452, 8893887, 66170920 ####[facility] [address] [place] [address] Hemoglobin (Bld) [Mass/Vol] 11.7 g/dL Low 12.0-16.0 [facility] Comment on above: Performed By: #### 2 387076, 9339875, 32209220, 1646626, 15584856 ####[facility] [address] [place] [address] MCH (RBC) [Entitic mass] 29.9 pg Normal 27.0-34.0 [facility] Comment on above: Performed By: #### 2 091600, 3360325, 67481278, 0962514, 95966157 ####[address] [address] MCHC (RBC) [Mass/Vol] 34.4 g/dL Normal 31.4-36.0 [facility] Comment on above: Performed By: #### 2 802245, 1088033, 06230574, 8474100, 72638078 ####[facility] [address] [place] [address] MCV (RBC) [Entitic vol] 86.8 fL Normal 80.0-100.0 [facility] Comment on above: Performed By: #### 2 034121, 2954939, 61209212, 0895994, 73982462 ####[address] [place] [address] Platelet mean volume (Bld) [Entitic vol] 7.9 fL Normal 6.4-10.8 [facility] Comment on above: Performed By: #### 2 288757, 6266754, 62163537, 3108301, 28794528 ####[address] [address] Platelets (Bld) [#/Vol] 329.0 E9/L Normal 150.0-500.0 [facility] Comment on above: Performed By: #### 2 955950, 5470905, 12116975, 4487163, 36295792 ####[address] [address] RBC (Bld) [#/Vol] 3.9 E12/L Low 4.3-5.9 [facility] Comment on above: Performed By: #### 2 051820, 4896223, 85530977, 4377570, 36737405 ####[address] [address] WBC corrected for nucl RBC Auto (Bld) [#/Vol] 6.7 E9/L Normal 4.0-11.0 [facility] Comment on above: Performed By: #### 2 841414, 4196464, 49083064, 2753116, 26964221 ####[address] [place] [address] CHEMISTRYOrdered By: SYSTEM SYSTEM on 02-13-2022 Albumin [Mass/Vol] 4.3 g/dL Normal 3.3 - 5.0 gm/dL [facility] Remisol Albumin/Globulin [Mass ratio] 1.3 {ratio} Normal [...] rate/Area] mL/min/1.73 m2 Normal >=59mL/min/1 .73 m2 [facility] Chem S GFR/1.73 sq M.predicted among non-blacks MDRD (S/P/Bld) [Vol rate/Area] mL/min/1.73 m2 Normal >=59mL/min/1 .73 m2 [facility] Chem S Globulin (S) [Mass/Vol] 3.2 g/dL [...] 14 mg/dL Normal 5 - 21 mg/dL [facility] Remisol Urea nitrogen/Creatinine [Mass ratio] 35 mg/mg High 10 - 20 [facility] Remisol CMPon 02-13-2022 Albumin [Mass/Vol] 4.3 g/dL Normal 3.3-5.0 [facility] Comment on above: Performed By: #### 2 655380, 4197118, 99059293, 6179534, [id number] ####[facility] [address] [place] [address] Albumin/Globulin (S) [Mass conc ratio] 1.3 Normal 1.1-2.2 [facility] Comment on above: Performed By: #### 2 961331, 1633645, 96997956, 9054856, [id number] ####[facility] [address] [place] [address] ALP [Catalytic activity/Vol] 55 Int._Unit/L Normal 21-98 [facility] Comment on above: Performed By: #### 2 783298, 9466145, 18169467, 8655999, [id number] ####[facility] [address] [place] [address] ALT No additional P-5'-P [Catalytic activity/Vol] 12 Int._Unit/L Normal 6-46 [facility] Comment on above: Performed By: #### 2 067622, 6239263, 30932657, 7427819, 27765410 ####[facility] [address] [place] [address] AST [Catalytic activity/Vol] 15 Int._Unit/L Normal 5-43 [facility] Comment on above: Performed By: #### 2 033563, 2657047, 93597492, 9911448, 35193320 ####[facility] [address] [place] [address] Bilirubin [Mass/Vol] 0.4 mg/dL Normal 0.0-1.1 [facility] Comment on above: Performed By: #### 2 537159, 0620843, 23982305, 1865492, 30066056 ####[facility] [address] [place] [address] Creatinine [Mass/Vol] 0.4 mg/dL Low 0.5-1.3 [facility] Comment on above: Performed By: #### 2 832226, 2057313, 58396665, 7290300, 50676906 ####[facility] [address] [place] [address] Globulin (S) [Mass/Vol] 3.2 g/dL Normal 1.4-4.0 [facility] Comment on above: Performed By: #### 2 129860, 6734140, 41137267, 0129705, 77470686 ####[facility] [address] [place] [address] Protein [Mass/Vol] 7.5 g/dL Normal 6.0-7.8 [facility] Comment on above: Performed By: #### 2 061072, 7871376, 53170296, 8449937, 94995963 ####[facility] [address] [place] [address] Urea nitrogen [Mass/Vol] 14 mg/dL Normal 5-21 [facility] Comment on above: Performed By: #### 2 618390, 9933345, 08425726, 8014192, 51310095 ####[facility] [address] [place] [address] Urea nitrogen/Creatinine [Mass ratio] 35 No Units High 10-20 [facility] Comment on above: Performed By: #### 2 320598, 9286481, 38183611, 9701166, 78017600 ####[facility] [address] [place] [address] Anion gap [Moles/Vol] 10 mmol/L Normal 6-16 [facility] Comment on above: Performed By: #### 2 035886, 5480587, 06626281, 2472515, 68909960 ####[facility] [address] [facility] [place] [address] Calcium [Mass/Vol] 9.2 mg/dL Normal 8.9-11.1 [facility] Comment on above: Performed By: #### 2 697459, 4191528, 55004978, 8467777, 08699680 ####[facility] [address] [place] [address] Chloride [Moles/Vol] 107 mmol/L Normal 101-111 [facility] Comment on above: Performed By: #### 2 487827, 4183200, 80396462, 6970364, 95178052 ####[facility] [address] [place] [address] CO2 [Moles/Vol] 23 mmol/L Normal 21-31 [facility] Comment on above: Performed By: #### 2 216886, 0631761, 43323032, 5397024, 63633897 ####[facility] [address] [place] [address] Glucose [Mass/Vol] 87 mg/dL Normal 55-199 [facility] Comment on above: Result Comment: If t his glucose result represents a fasting glucose, interpretation should refer to the following reference range: 55-99 mg/dL Performed By: #### 2 162776, 5128936, 14930600, 8303645, 10298298 ####[facility] [address] [place] [address] Potassium [Moles/Vol] 3.8 mmol/L Normal 3.5-5.3 [facility] Comment on above: Performed By: #### 2 [id number], [id number], [id number], [id number], [id number] ####[facility] [address] [place] [address] Sodium [Moles/Vol] 136 mmol/L Normal 135-145 [facility] Comment on above: Performed By: #### 2 [id number], [id number], [id number], [id number], [id number] ####[facility] [address] [place] [address] Consent for Treatmenton Consent for Treatment [id number] 20 [id number] #1.00CD:127 Normal [facility] Discharge Instructionson Discharge Instructions [id number]# 1.00CD:127 Normal [facility] ED Clinical Summaryon 2021 ED Clinical Summary [address] [address] ED Clinical Summary Person Information Name: MARIBEL VELEZ/[place] Age: 21 Years : 2000 Sex: Female Language: Tajik PCP: CAITIE MARSHALL CNP Marital Status: Single [...] 02/13/2022 07:28:36 ADDRESS: [address] [facility] [id number] PHYS DOC NOTES: Addendum by Kevin Santoro DO on February 13, 2022 07:22:06 EDT MEDICAL INFORMATION: Prescriptions Given: New Medications [id number], [address], [place] [id number], [phone] pramoxine topical (ProctoFoam 1% Foam) apply By rectum 2 times a day for 7 Days. Refills: 0. Medications to Continue with No Changes Other Medications ethinyl estradiol-norgestima te (Sprintec oral tablet) Ib By Mouth every day. ibuprofen (ibuprofen 600 mg Tab) 1 Tablets By Mouth every 6 hours as needed as needed for pain. PATIENT EDUCATION INFORMATION: Instructions: Rectal Bleeding, Odgq-xh-Arfd; Hemorrhoids, Srnr-gz-Ucgm Follow up: With: Address: When: [facility], [address] [facility], [place] [address] Business (1) In 3 days 02/16/2022 With: Address: When: CAITIE MARSHALL In 3 days DIAGNOSIS: Acute hemorrhoid Normal [facility] ED Note-Physicianon 02-14-20 ED Note-Physician Basic [...] change or worsen. Diagnosis: Rectal bleeding Normal [facility] Comment on above: Result Comment: Elec [...] 02/10/2012 Document Revised: 05/13/2018 Document Reviewed: 07/26/2016 ANPI Patient Education ? 2020 [employer]. Hemorrhoids Hemorrhoids are swollen veins that may [...] times a day. General instructions ? Take floe-eju-uvxjava and prescription medicines only (more content not included)... Normal [facility] ED Patient Summaryon 022 ED Patient Summary [place] [id number] Patient Discharge Instructions Person Information Name: MARIBEL VELEZ Age: 21 Years Arrival Date: 02/13/2022 06:16:54 Discharge Diagnosis: Acute hemorrhoid Primary Care Physician: CAITIE MARSHALL CNP Provider Information Primary Provider: Ana Braxton DO Advanced Team Leader:None The exam and treatment you received in the Emergency Department were for an urgent problem and are not intended as complete care. It is important that you follow up with a doctor, nurse practitioner, or physician?s assistant head cashier for ongoing care. If your symptoms become worse or you do not improve as expected and you are unable to reach your usual health care provider, you should return to the Emergency Department. We are available 24 hours a day. MARIBEL VELEZ has been given the following list of patient education materials, prescriptions and follow-up instructions: Follow-up Instructions: With: Address: When: [facility], [address] [place] [address] Business (1) In 3 days 02/16/2022 With: Address: When: CAITIE MARSHALL In 3 days In the event that this physician does not participate in your insurance network, please consult with your insurance company to find a nearby participating provider. Patient Education Materials: Rectal Bleeding, Opzv-ve-Irvh; Hemorrhoids, Onfg-ao-Brmh A MESSAGE TO ALL PATIENTS REGARDING OPIOIDS PRESCRIPTION OPIOIDS: WHAT YOU NEED TO KNOW Prescription opioids can be used to help relieve rcwsqpvy-st-qbacpt pain and are often prescribed following a [...] care professi (more content not included)... Normal [facility] HEMATOLOGYOrdered By: SYSTEM SYSTEM on 02-13-2022 Basophils/100 WBC (Bld) 0.9 % Normal 0.0 - 2.0 % [facility] HemeAutoSS Basophils/Leukocytes Auto (Bld) [Pure # fraction] 0.1 E9/L Normal 0.0 - 0.2 E9/L [facility] HemeAutoSS Eosinophils/100 WBC (Bld) 0.6 % Normal 0.0 - 8.0 % [facility] HemeAutoSS Eosinophils/Leukocyte s Auto (Bld) [Pure # fraction] 0.0 E9/L Normal 0.0 - 0.5 E9/L [facility] HemeAutoSS Lymphocytes/100 WBC (Bld) 46.4 % Normal [...] MDRD (S/P/Bld) [Vol rate/Area] mL/min/{1.73_m2} Normal >=59 [facility] Comment on above: Order Comment: Order added by Discern Expert. Result Comment: eGFR is race adjusted. AA=. Performed By: #### 2 [id number], [id number], [id number], [id number] ####[facility] [address] [place] [address] GFR/1.73 sq M.predicted among non-blacks MDRD (S/P/Bld) [Vol rate/Area] mL/min/{1.73_m2} Normal >=59 [facility] Comment on above: Order Comment: Order added by Discern Expert. Result Comment: Herpetologist linwood kidney disease could be indicated at eGFR's of less than 60 mL/min/1.73m2. Kidney failure is indicated at less than 15 mL/min/1.73m2. Performed By: #### 2 [id number], [id number], [id number] ####[facility] [address] [place] [address] Coding Summary.on 02-06-2022 Coding Summary. CD:[id number] Gh0bWw+PGhlYWQ+PE1FV NZpV61xqUWanG1SZ2qPM J2RUQCXATCFZO1UDE0ga ZH1HEdeO0LeywQj YozjcZLnJN53QBz6GAD1 pPcaSRqbsR4ihMNtM6t2 YwViFN09jI76POgeDYBq DkE6MxCjxpotiCQm V3aqIsPknTTcVoo+PHRh YmxlIHdpZHRoPScxMDAl BcPeuHkpLX3jJq9wXMGq LWNvbGxhcHNlOiBj z6ylWKQkNAkgZQ2ioRhz V5PpyIP0ZRIlz3p2Np05 dHI+ZECwGDS9eXlxUOov x685UwLmt0vqOST0 qXNbSDvoGHL8D19fs6T1 WAVwBLReCJZ3yTS6iT7g sLvytcrqN5DoiVJpCtP8 YIT7cUJouM6guSqb ntxzjI9xQua+N18MEE9X JGVIOI5IEha0G1UpKgcj dHI+UI50XMUhWT26aUDl nZAxo9znpYb2EiOn YWInHJQ9sNeqHKpwd6Vt QPYkD36etLLkj2F7DWXz aPeccTQxWhDjjZE5mE9i ATtcvddpt6cotcuj Fctew1txyy18uQ47V02j CLxnALKpSQW4RUNmQRHa mRopfx3bkK0sOq2+IDxj y7tqf1gswPt0VqPa JELwgkUncMyaLGF0j8Ni Va96V7MzxGilh6CaRcb2 yh56yHJyf6K7fAO7WNmb PCLskV1jDYqiPeC3 IJVlLjHxoI47hVAwZMhc Id7teIoadYaqMZ6qUOUh mddrTBJrxL6cJAKsiBEb mWqcMO7hOWSixqjd g412AyNeLCU8UJSnmNZt S0MkeH4sMpCzYWXaGUFe E2WjmVZvOQdrS408RRho LgC7ITZhacTxC5Av NLFhcNkiXcO0i4X4Dg1G f1JnfjjeIVC4WFykDNR3 EoI5OpCaPoN9W4IgQyn8 NBMhtGezSQ1tZ1Tc ANKsiciztnpycXT4KRLb KOTijQ65pFXpRMjeHg1h f0B7q228PYPxVHYkoW44 Ks0dfQfmANAdrZKA jR0mlunde0jdgbumHlIa URLcUPy0UUp9MAKkkTuz DzHsIYH6JtE6YZR0yBNw dF6lnModgknbnD6n Oyc+U82yyB4yTZC0HIV4 suxxJLMbzcLxRE67QV57 X4JnXhmvpCXouFA+PGRp eiPhkOrmDJ5aVgIe m3mhn0OuXYubX1IoDSRx ISybNju5ZCXiKIL6oVN1 pJ2yNMCqBMajt6V7dYJ0 Z2WgktOyjf6rq3dz WSWwADghA47diJNdi5L8 DQHyfNV2ZKOxuScyXhHu pA02Tfy+JRNmxRocc0Ac Czlua8cor9mccLf1 IjMwJSIgdmFsaWduPSJ0 m6CwXt39D89hATaeBPNh NTTqQGTmOTOvcPuedo0h qL4lNi0+PGNvbCB3 cNS0zY8qZHLyHhR3EHrl Y709KcYygIBhDbhor1py s4xefJb0BdEiJHOixaPf nOplVTZ3v1XmSk47 Z05tGNacAQNuWMZcAMHm DSCcpAqwuh5jlU8nXl8+ GU5oe8lyvm99pV94xRM+ EEJnAUJ1cDozCMqy FCRmqV4fGSziFwE0DNLo QjLjdG82qONkHFjfPx3p rQvmxGecQL6uHXEvcooh s986VzCcm6ejYXTo qAVrCFnmFQT1M82kq0J7 JYBrZGYlAFK8zSF0vK0r bGlnbjogbGVmdDsgdmVy gDyeSSqvAUfkI308 IHRvcDsnPlBhdGllbnQg UkXaWSi0T4RhRon2ITWe hIjpKA3czABiKBwuPx7u hIyjmIxjTD7cRBVc nlpzg606BeZeu6qdLFKg jHFmDTjrIBQ4F53jn4L0 EUKfPYZsBVZ8pQN5sG0i bGlnbjogbGVmdDsg uaKplLoeUXlbIIfjS088 IHRvcDsnPkJpcnRoIERh sYT1WT56CM77rOMjr7N1 yMO1W2GiCFOlpved lrrwwQF4RIPfJYPabF14 Tj4rhAywOn1dMULeRYM1 RHTzwGDkL4XraM8jSlMu WNOiEBLkR7SqrZLl XZcsZ371GPkbWnT3VKFo jePgF4WpNUUqjApoWtV8 n7A9Jd4WX9J1AB83KP75 tHSoe7E1tNZ0I0Nl HKUygvnffzmybBR9NCCq DKTuxJ34Tx1kqAzyIz5a TISbPWP4PCAftNChI3Hy lJ4vBaElQEVeJBFz Z2UovXKuHPhgI851ZWow WsQ3UXWyruLvA4RdQZGy bImxArZ0p6Z2Ra1KOBt0 EL74WY73mBPzv5F3 oMB6M9FkUUHmrjhsxncw fWF4FIHtUQJxoC61Bl5a aGhxRe9wHKNhMKP4GIGc vMYcP7GbkZ8jKkRv SCGlZDWiW4LgyTZoOSnp S879RXwrBvX6PRUxcvMw Y1EuQZNoaLsmVwL4j3G2 Ej9EGEKcLT65FMU0 qYD2OK20GY59N4OkQymn dGFibGU+PHRhYmxlIHdp ZHRoPScxMDAlJyBzdHls NO6dDq2iMPOqQNTn nQfucKGoAcVsb3fkFHWa VOlvGO8icYolO6UarTJ2 BFOox3k1Ee33X67rR6Yc dXA+LVUmlME6nBA0 qB8lIcEfSnX3HYssA107 LcDwcNDhLdojx5kea0ud vOh0NlL0UJEczqBqyZar GHV2x5OpCb46E31w IHdpZHRoPSIxNSUiIHZh sKynwc2hdZ6gJf6+PGNv iTR8sZF0uU4hCgJfCsB5 ZCswZ525SbGxdLGx Emqlu1aep1ydrDf6VyHw OBSwmhJnkChdRTN0l3Ly Ka77H1YxuSphy9EeSav1 no69dZCmx3H5hVW6 I5MvYBXjincfcYGdrHsf FZ4pNRDdjsffGQVwoW2m FICpO4m6RzFpQfO0SBvy R0ZflbJ7LWOkdQVo MAbzDPH0B52lo6C9ZEAw BGNjPYP7eHB9wB8hzAse bjogbGVmdDsgdmVydGlj KTewGBgkW729BUTr rWprELZkaD8aKUIxcADm hXnaRI2wGGTeejqaHqWW EVoOFAybQ5OSYWpVDtxT SF76BA62lETei3Z1 lDB7I0PrLDTbohpuxzjl rMC5EURgVQNzaK58pFFs PZfrEw7rv1S2l536WFAa RGTzgJ20Zt7ueYnx PUVawCBSrF2kreptd8tv xkjrUhOjMTZdIHz8ZKg0 RKHcfSvyJmCtJJE1JlL5 RUH3xASvyK8eaPuh ckzduL1jYtr+MDIvMTkv MjAwMzwvdGQ+PHRkIHN0 fQksJOrnTRTtmF0zDGEb F6o3OkLqWsF3RGgb M8GrLGNaetwbGk41rK0t QrRtUkP9IFtxU5PdnrE3 CHRayMYwPUxeXLO7W85h j6N1IWKtHUBqYLF9 mEP9vS8bcAyatatexXWk dDsgdmVydGljYWwtYWxp R620LXFxtMimXsK2SGov EQOyRO10OJ25rRCa l1U9bDJ2I4QqAURkdgoq nvclzKN4XQZyLZZapM17 wYTbXMxvGm6vn0Y1l194 XHQvEIIhtJ45Xg9s qLmsILEpgJYQlK5okaom f6uceuxsAuJkYKOzTOi3 JQg5NHSpiBkrVmXgXPL1 KrU7MQZ9nMWcqR8s lHfhuflvfE4qFin+RmVt SNkiBP22IQ10uGPom8I2 sIQ1P3YcURUdfxaojklx wAB6AZTsEGEidJ35 dOJeJWutLz2mf3O0v986 KDOxYEKhwT29Qu6akGqo TNMmvPRSsV5akznae8uq cjogIzAwMDAwMDt0 EFm6GUHwdRpxGcSrTSO1 JfI7VTB4lDBkeE4uzNzu rhutrA1kDsd+Q7W5zQF7 aWVudDwvdGQ+PC90 xc43A5WxGizoTwl8FXUu XVK8nVW9gQ3zYFRmHSts e2V6fQD7J9GwgdMvjz6r y2xjMTItRKznD82h hQWxn9T0HGIypDL9PMJr kYysLhXvdS58Flm+PGNv mNltv2JeNhahy8mge3ck wMa2McJjHOMaysDu qLpfVXH0j7UfUl24L18n IHdpZHRoPSIzMCUiIHZh bCpdoa7dtB4nWc1+PGNv kIG0aSB8qZ9oZiMl CdU1QEawW986PdWwuVKi Pqteh6sqy5oqsHm1JtUc QZUacyRatUbnIFZ0p1Pa Mg14Y5RtdLtkw0Lc Xhm0an77lNPzv5S0bRW7 I3JhZCOyugystYDdoXer PS1gFRYcftapETQdfD7g NYEcE4s6TqRhDaA9 DKbeD2ZgpvG2OZPreLSq LMBjzZIAhO8vxzlhz6oe zqnjSdPjYBNjMBo0ERh1 LWFsaWduOiBsZWZ0 MbR6QUO1jPFakB8mdQps sdonmA7oThx+GJp2j2qz sUZiVC7tjNV8YM52JJ94 iMGsf5X7qHA3J4Px DTDbmflqpdplvKX1YBAx UIItoT19Mm8eiJnfXz3l JBBwJZM5LTKguCIeK4Xy hV4jVfRrQHPjCKVq C0VheGYfFLxgQ479PDer RyT6BBQitsCdA1CjXDCn cFfpQsI3p2I6Vs0YDH10 XA83YB35pJJgn2U0 gKA8G1RpNBGoaizgdqiv aNG4FFWuIUGmjX55Cj1h wXizRg7lPHOjMIE0TBPi dVLmT5MsrR7oBmGo LXCcAHRrI1AmbBGxHWbw M043KHxkMeY9QNIivuWo R3HaIBToiNhlOtI2i5W6 Vx2AWm13AZ65DQ87 zSIjj3P0yWW8N3CiZXOx kqkpszeweQW6ZQZzNYIo oN36Ii3tnWdpCn7bFJLu YIT9JXOsvABfL0Ct sR1zZiVvCYUaHOSpR2Oe gHWxPUagL854MPybJcG2 NVTcwnCzU7WaPHRpsNop NkU7q6B3Do4EKLpv din0Y2BmGiuqoSC+PC90 PHUrEE30jFAwoZXis8tl zXu0MeMrGCAfOYX5rVvo HHdtb3EcDTCbH33w bGFw (more content not included)... Normal [facility] Consent for Treatmenton 01-13 Consent for Treatment [id number] 20 [id number] #1.00CD:127 Normal [facility] Physician Orderon 02-03-2022 Physician Order [id number] #1.00CD:127 Normal [facility] XR Shoulder Complete Righton 02-03-2022 XR [...] M.D. Transcribed by: CHRIS Technologist: JULITO Hanson [facility] CBC AUTO DIFFon 01-15-2022 BASO # 0.0 103/ul Normal 0.0-0.1 [facility] [place] Comment on above: Performed By: #### C BC #### [facility] [address] [place] [address] [address] Venancio Soriano Basophils/100 WBC (Bld) 0.6 % Normal 0.2-2.0 [facility] [place] Comment on above: Performed By: #### C BC #### [facility] [address] [place] [address] [address] Venancio Soriano EO # 0.1 103/ul Normal 0.0-0.7 [facility] [place] Comment on above: Performed By: #### C BC #### [facility] [address] [place] [address] [address] Venancio Soriano Eosinophils/100 WBC (Bld) 1.3 % Normal 0.9-7.0 [facility] Comment on above: Performed By: #### C BC #### [facility] [address] [place] [address] [address] Venancio Soriano Erythrocyte distribution width (RBC) [Ratio] 12.8 % Normal 11.0-15.0 [facility] [place] Comment on above: Performed By: #### C BC #### [facility] [address] [place] [address] [address] Venancio Soriano Hematocrit (Bld) [Volume fraction] 36.5 % Normal 36.0-48.0 [facility] [place] Comment on above: Performed By: #### C BC #### [facility] [address] [place] [address] Dr. Venancio Soriano Hemoglobin (Bld) [Mass/Vol] 12.2 g/dL Normal 12.0-16.0 [facility] [place] Comment on above: Performed By: #### C BC #### [facility] [address] [place] [address] Dr. Venancio Soriano IG # 0.01 10e3/ul Normal 0.00-0.03 [facility] [place] Comment on above: Performed By: #### C BC #### [facility] [address] [place] [address] Dr. Venancio Soriano IG % 0.2 % Normal 0.0-0.5 [facility] [place] Comment on above: Performed By: #### C BC #### [facility] [address] [place] [address] Dr. Venancio Soriano LYMPH # 2.7 103/ul Normal 1.2-3.8 [facility] Comment on above: Performed By: #### C BC #### [facility] [address] [place] [address] Dr. Venancio Soriano Lymphocytes/100 WBC (Bld) 42.9 % Normal 20.5-60.0 [facility] [place] Comment on above: Performed By: #### C BC #### [facility] [address] [place] [address] Dr. Venancio Soriano MANUAL DIFF REQ NO Normal [facility] Comment on above: Performed By: #### C BC #### [facility] [address] [place] [address] Dr. Venancio Soriano MCH (RBC) [Entitic mass] 29.4 pg Normal 26.7-34.0 [facility] Comment on above: Performed By: #### C BC #### [facility] [address] [place] [address] Dr. Venancio Soriano MCHC (RBC) [Mass/Vol] 33.4 g/dL Normal 29.9-35.2 [facility] Comment on above: Performed By: #### C BC #### [facility] [address] [place] [address] [address] Venancio Soriano MCV (RBC) [Entitic vol] 88.0 fL Normal 81.0-99.0 [facility] [place] Comment on above: Performed By: #### C BC #### [facility] [address] [place] [address] [address] Venancio Soriano MONO # 0.5 103/ul Normal 0.3-0.8 [facility] [place] Comment on above: Performed By: #### C BC #### [facility] [address] [place] [address] [address] Venancio Soriano Monocytes/100 WBC (Bld) 7.2 % Normal 1.7-12.0 [facility] [place] Comment on above: Performed By: #### C BC #### [facility] [address] [place] [address] [address] Venancio Soriano NEUT # 3.0 103/ul Normal 1.4-6.5 [facility] [place] Comment on above: Performed By: #### C BC #### [facility] [address] [place] [address] Dr. Venancio Soriano Neutrophils/100 WBC (Bld) 47.8 % Normal 43.0-75.0 [facility] [place] Comment on above: Performed By: #### C BC #### [facility] [address] [place] [address] [address] Venancio Soriano Platelet mean volume (Bld) [Entitic vol] 9.5 fL Normal 9.5-13.5 [facility] Comment on above: Performed By: #### C BC #### [facility] [address] [place] [address] Dr. Venancio Soriano PLT 323 103/ul Normal 150-450 [facility] Comment on above: Performed By: #### C BC #### [facility] [address] [place] [address] [address] Venancio Soriano RBC 4.15 106/ul Critically low 4.20-5.40 [facility] Comment on above: Performed By: #### C BC #### [facility] [address] [place] [address] [address] Venancio Soriano WBC 6.2 103/ul Normal 4.0-11.0 [facility] [place] Comment on above: Performed By: #### C BC #### [facility] [address] [place] [address] Dr. Venancio Soriano PROF 14(COMP METB)on 022 Albumin [Mass/Vol] 4.0 g/dL Normal 3.4-5.0 [facility] Comment on above: Performed By: #### C MP #### [facility] [address] [place] [address] Dr. Venancio Soriano Albumin/Globulin [Mass ratio] 1.2 {ratio} Normal [facility] [place] Comment on above: Performed By: #### C MP #### [facility] [address] [place] [address] Dr. Venancio Soriano ALP [Catalytic activity/Vol] 67 U/L Normal 46-116 [facility] [place] Comment on above: Performed By: #### C MP #### [facility] [address] [place] [address] Dr. Venancio Soriano ALT [Catalytic activity/Vol] 16 U/L Normal 14-59 [facility] [place] Comment on above: Performed By: #### C MP #### [facility] [address] [place] [address] Dr. Venancio Soriano Anion gap [Moles/Vol] 11.8 mmol/L Normal [facility] Comment on above: Performed By: #### C MP #### [facility] [address] [place] [address] Dr. Venancio Soriano AST [Catalytic activity/Vol] 9 U/L Critically low 15-37 [facility] [place] Comment on above: Performed By: #### C MP #### [facility] [address] [place] [address] Dr. Venancio Soriano Bilirubin [Mass/Vol] 0.3 mg/dL Normal 0.2-1.0 [facility] [place] Comment on above: Performed By: #### C MP #### [facility] [address] [place] [address] Dr. Venancio Soriano Calcium [Mass/Vol] 8.6 mg/dL Normal 8.5-10.1 [facility] Comment on above: Performed By: #### C MP #### [facility] [address] [place] [address] Dr. Venancio Soriano Chloride [Moles/Vol] 106 mmol/L Normal 98-107 [facility] Comment on above: Performed By: #### C MP #### [facility] [address] [address] [address] Venancio Soriano CO2 [Moles/Vol] 24.9 mmol/L Normal 21.0-32.0 [facility] Comment on above: Performed By: #### C MP #### [facility] [address] [place] [address] Dr. Venancio Soriano Creatinine [Mass/Vol] 0.58 mg/dL Normal 0.55-1.02 [facility] [place] Comment on above: Performed By: #### C MP #### [facility] [address] [place] [address] Dr. Venancio Soriano EGFR-AF [place] >60 Normal >=60 [facility] Comment on above: Performed By: #### C MP #### [facility] [address] [place] [address] Dr. Venancio Soriano EGFR-NON AF [place] >60 Normal >=60 [facility] [place] Comment on above: Performed By: #### C MP #### [facility] [address] [place] [address] Dr. Venancio Soriano Globulin (S) [Mass/Vol] 3.3 g/dL Normal [facility] Comment on above: Performed By: #### C MP #### [facility] [address] [address] [address] Venancio Soriano Glucose [Mass/Vol] 94 mg/dL Normal 74-106 [facility] Comment on above: Performed By: #### C MP #### [facility] [address] [place] [address] Dr. Venancio Soriano Potassium [Moles/Vol] 3.7 mmol/L Normal 3.5-5.1 [facility] [place] Comment on above: Performed By: #### C MP #### [facility] [address] [address] [address] Venancio Soriano Protein [Mass/Vol] 7.3 g/dL Normal 6.4-8.2 [facility] Comment on above: Performed By: #### C MP #### [facility] [address] [address] [address] Venancio Soriano Sodium [Moles/Vol] 139 mmol/L Normal 136-145 [facility] Comment on above: Performed By: #### C MP #### [facility] [address] [address] [address] Venancio Soriano Urea nitrogen [Mass/Vol] 9.0 mg/dL Normal 6.4-19.3 [facility] [place] Comment on above: Performed By: #### C MP #### [facility] [address] [address] [address] Venancio Soriano Urea nitrogen/Creatinine [Mass ratio] 15.5 mg/mg Normal [facility] [place] Comment on above: Performed By: #### C MP #### [facility] [address] [address] [address] Venancio Soriano Discharge Instructionson Discharge Instructions [id number] 3#1.00CD:127 Normal [facility] ED Note-Physicianon 10-23-19 ED Note-Physician Basic [...] Orders: Influenza A&B Ag Rapid COVID Antigen ([facility]) Disposition Plan Patient Discharge Condition Stable Discharge Disposition Home Discharge Prescription List Prescriptions No active prescription medications Follow-up With When Contact Information Michelle Mata In 3 days 10/22/2021 EDT Additional Instructions: Patient Education Viral Respiratory Infection, Sqea-Bm-Bpmq Attestation This visit was performed by both [...] Diagnostic Results No qualifying data available. Normal [facility] Comment on above: Result Comment: Elec tronically Signed By: Cherry Hazel PA-C\.br\Date and Time Signed: 10/19/21 17:19 EDT\.br\Electronically Co-Signed By: Miko Kaur MD\.br\Date and Time Co-Signed: 10/22/21 10:35 EDT Coding Summary.on 10-20-2021 Coding Summary. CD:[id number] Gh0bWw+PGhlYWQ+PE1FV PVvN99atWTghG2VC8tBA F1XYWGVOZMHUP4TTL5by WJ7PMyaR4ToecVw AbdemVHmLU95PKs5GUM0 qQvuWBicpQ4aiGOqB2v1 MpErKY56jH77SXgrJQZq YdF9HkXaufgnsJLu X0qdQtTifHGoDmf+PHRh YmxlIHdpZHRoPScxMDAl XgXzfYoyIX2lNz0xHYKa LWNvbGxhcHNlOiBj b4izXCRbTJliUW4urWuh A2FgbQL8MUDyt1g6Zw29 dHI+BIAiGBV9eRdwUZmh s619AhKjy2lqZSQ3 iSDhGWhsBAK6W74ny2M7 MFQvSUMvSLW5tMA2dV7u cScvuqfnU3DmlRGuBtF5 ZJG4sJZqrM4cyCqy khewpK3gPjc+U72KSO7H ZEZOWZ0THbr1U2AwUgby dHI+OB64XHHdAB24yIMb uXCii7qrjKv6WjLm XCXdNUX0qOdrUSccy9Lq WSTgI13vvGTea1B8LNIe nOrxdVMhIpFjsDT1nB9b PTuselldf7oszkjz Titmx9iutn85kP83Q62m HHobHWPxHHH6PIJqTAIu rQblua3cmK6bKx0+IDxj w0liy8hhnFo3GwSb ZUIklnTasJxlDKN0n7Dm Vv08F0PbfVxtg6KwTwv5 el45eNIgj5L2fVB2QLhe CZGobH3uMHhbGbN4 JAPzEwZkkM32eMGvHMsq Qq8fqRqkhBtoAN9rTMTe ooycEEUrkE2gYQRmxUHe pOabJT0wJJMkwsyd e714WeVoZDU5MIZfxGAx L8WvxQ5fTwMpIUMrOPJg N7SlzCHbTTlrR697PWxk EnH4VZUkdkUhM9Ej ZSDtmWzsJwD3t7W1Ob5K d1SvfzshDQQ4WEemCOV0 ZpW5TiSsQlA1J3QqCnb8 KEOjrNduFX8iU7Lm MASchyswnkhevHP1RKMl UFHfxP10yLZwYHoiDz3a b0L0a404OOOwDQGmrA54 Zl0umLoaPMOlxANI kC1ypcqzi4lmeucbDeJr UKHpTOb1WSg6DJPrqFrs EmXqKHW2DtZ0DPS2yERu mY5idNroeikcpI5m Oyc+E61gnM2oIMH1BOC5 sddpLWUhorBvHO05SR89 D5HrTfqowIPgzQO+PGRp cuIdgWpkTH0gOpZb c4lbx8PsHXonO7DrTDYn IHwzOzf2CZNtKZL2uPM2 xX0zHYQaUPzlw7F3xTY4 O7PgpqAdww6ce4jl VSAsHWndK48fmKCqs6F6 VGOpnZT3GSCifFduLpSz rM31Gnw+GRCflQmvs2Wa Elhys6gop9wwwLl2 IjMwJSIgdmFsaWduPSJ0 z3OpGq14A57gOXgpWDZf COTlPGQeVMXiwEyhdw3w lG5hWz4+PGNvbCB3 bPZ1sD8rTFJzYtX0MHbf O274UuJylUJqTibfx1dp h7ofxQb4CuVdUGSzcuDn fCnfFUO7c5LwLu49 O70aXTvbNQGkWWWrBCOz RFQaiHyzze0krR4fTb8+ II1fa0kmqi39mT98aJQ+ JNWmKZB4iFilVQwb QUOqrD6eCRiwCzY4QZHl SzJqcA78cYXbPBcoJl0o jNiibPvuEB1cJNJhkeng x059XuPla0seYDNc wOAmBDnbEBQ2E67ge6V6 GHAmIVEfTOB7vLX4bP0d bGlnbjogbGVmdDsgdmVy nLaxJTzaCGbeJ093 IHRvcDsnPlBhdGllbnQg KdWhTSa9H1YvVnp1MCLh zWrbOB8lgQRkCHffZn8z vXnezBylQX1tYRDd znich893NpRqc8ujUNVp oHUaKYskPNC3M74bs1I0 SPUdXCBgJQH4bUK1kW3s bGlnbjogbGVmdDsg kzOsqPhkQFkyMVunK462 IHRvcDsnPkJpcnRoIERh uNT2DT00QI67gUZxp3S9 uRS3N5PwHIKqaudv boraxPA8TBJqTRLvgB14 Gd2csIweYe6fQBDfYCD0 QTIqdJTdN4YscS1cZiMr FJQdRGWrC7VoaQXg WTwoP096KKheRsX7AUBd ujCpG7PkJOXloFjmWaE3 i7O7Xi5LU9P5QA05AX42 xFQiv9C0vKD4A0Cq GIOkvwnyiewbtJA3HNFk OAJyrC24Jo4wxFfgXk0w XOAxPMN6QIIjxTTaM5Oq zG8lBvOxEAOwCIVo G8GkgULpXAqkK552WTqh UmX2VUMxtoXxH0RuSPKa iXyaStP3c4U8Jz2DIGp3 ZN29MI19zISlx3U1 iOK5S3PmPAMtrxpjockv uYI2DKDtWRFvaP84Tx3f hHddEi6rZUGrEFY5LEBa nSCbU7YucR6pNdGf SFJmRLVlJ0RtqPDwFIni T416BUzsIbE1ZAVyhwAg C7FvGASzqSrrRsB8b4X0 Dh6GDUJxLO89IRQ1 aYV5KW05QW27K7GvZmee dGFibGU+PHRhYmxlIHdp ZHRoPScxMDAlJyBzdHls HJ7iLh9qKIHhDPYc dHxagHYzCfQae4sbXMPi UFypNO3wyAyhM1LkhIG4 TSKkb1f1Zp47Q91jZ4Sz dXA+JBScjAC2aZL7 pO8bRzJbUyW0RFznS877 QeObqFObEvntb1mbn9nq xBe9DbN3RVWgwyFhkHhq OHN9c6EuUb17O24v IHdpZHRoPSIxNSUiIHZh vVfoko2wgH5kUo9+PGNv mJS5cWI3fX6xBgHeGiZ3 GGqcO913XmPewQVk Jkaox5rpb9zwjZw5KlLt RTElfxDrsBrnBPG7p2Xw Vh30W4LtyOxhi3CmAff5 jg55bTCte0A5wDT5 W3FiAUOjplbnkFGjlYuf XO2aUSGjxldpVQTzrD2n UYFjP9n5NsEzNrV3UJkt H4BhqwG6CPBgwLZk XNexRDP6L25zr6Z9VJIi BNQuOSC3uKC9dV5jfGjj bjogbGVmdDsgdmVydGlj EAaqJVyiY739DGCj zDapESLjtY9hOBXbgRMf gOezYD8lHJSftymuCnZD IWjHSGdnZ7NZHFnTQuqZ RB99JB09xVHbu9A9 nDY7J4IfGTKdsqqohpjy pWF4BHHwMJPvnR16mXDm MSkfDp3cl9T8c564ARKs DJRtbF93Dn6rsMvk EMYrcLRKhM0mocsyp1qf bybnNzNqDFTuUQq3KQu1 HZWeoFloOpXxSPY4PiT6 KDB4sORumT1giYwe nyteuH4jFcy+MDIvMTkv MjAwMzwvdGQ+PHRkIHN0 gEuuKFlqQRZtbG9oTJJx Y5v7IbFfQaT0QZwb T5OrMZWjythlBj32sU7f YyZhKrG6RXhnJ4MuvxF3 QAXgdYGiDMbhBGT0U04l e1W7KFUjQPSvBXN7 uBV0tR5gmZlpkywsrNAb dDsgdmVydGljYWwtYWxp C206RWTclIwfEcG1OCjm ZCYqGX82UE99oEQs s6X6qKU5F5QoEEIdiiaz gxqqkNA9DIEwVQPqzO41 uAWlCMnuKl0mt1N8s559 MVXyITQepW95Pm6e qCqrRMIzpAAYkR6zinxc m1cqqoicAeBqZTMqCMm0 MFm2GULynHswLtPnDOW8 UrE0QMW9aRLcrI8u wOipmljytQ1yWdu+RmVt FJxtZI11OL18kXVrr1A2 nUM2D7LrATKpykcgtqme qXN6SGSfOFRdnE89 xIIhNVheCz2hl5X4k043 YGNuAPHqzW14Kf2wpDlk YUZwnSSCiB3cwbcij3ni cjogIzAwMDAwMDt0 VCm6OOJucSpoHaGwBBH2 VpM5WNO9pZMmeC2edInx yrrotJ3pEli+FS0cmsqk usE8MN96JN36X3Hi PjwvdGFibGU+PHRhYmxl IHdpZHRoPScxMDAlJyBz bCzmDQ3oWu9cXINxKCXx uZtxtVUdSnLjq5rc ZHHmOAyxDU4aoUlsS3Wv sZF2OOIwo5a7Ap07G13f H4WrmPP+BBVsrYD1kKW7 lR4eUpJrZhF1AHbz U049XnFjjOAcEtonr8fh k1qbxPu9TfEhSJEqnkCn nKrnVIR7i8MaKg63A54x IHdpZHRoPSIyMCUi UYUwfBarrh1ujR5gPt9+ BPBczNS9uVO5nN7eGzCh VeR7ICfdQ320ZgVyoRQm YgngC21iE5LghQG+ KSCwSmk9WMSbmNpzUX1t hKVzPHryOh9wQFH3ZjZh NpOsZErgG2RdVKStbbmv poabfWN8OHBlHTOk mW30Mm8imRfwYm3fNEQk TZG1QLKvaUJgD6EemL6d AjTfQXJnKGHrR4TjzWQz CRybN714DIonMkT4 QXDugcPwT0IkAQVwsFwx WtU3q9X4Sh9RwQwvsPXs XP9qCbYoIIc6W9NrJof2 QBDzgEwsIN4tkTPp GZrvDf1bmAkflLrxSM5k VBCmeeakd941FgPym6nz TXZzmEYiNLelWWD2P36f n6R8JPFlYFYxWBK4 eOQ3aD0mcHszmecmrERg dDsgdmVydGljYWwtYWxp M322UEUgcUvaGsDXBkp3 R6KkSbq1WVRrcClr PA0veFBzIIazGl4dzCff dAoeKH7jZTVzaotez751 BhXwp6yjRUItnCIwUEdi SRQ1A15qc0S7YFTa ZCMoHSU7tWA2dT7wrKum bjogbGVmdDsgdmVydGlj LVebSNoxF800HIWftIor Mo5BBfi6G2RwUhr6 KFWrzVjnME5zqBFiOEuq Az7bkTlncMzfVS6mGBDv zigcf035LaGor8kyZUXx jKKfEHzxDES5I90m d8G6XOZxSIJwLXQ5fXI0 hM2rjAzzanjscQWfmWry lbKheAkdBSpjVUwiR956 IHRvcDsnPlBheWVy OjwvdGQ+QX27bk39N7Vz EsviXii2SQNpRCY1bRC0 tI0hYDDpQDbfc7L0pKK2 T3FgxpRhjh4gd1as YXBz (more content not included)... Normal [facility] Consent for Treatmenton Consent for Treatment [id number] 20 [id number] #[id number] Normal [facility] ED Clinical Summaryon 2021 ED Clinical Summary [place] [id number] ED Clinical Summary Person Information Name: MARIBEL VELEZ/[facility] Age: 21 Years : 2000 Sex: Female Language: Tajik PCP: NAIMA PEREZ MD Marital Status: Single [...] 10/19/2021 17:27:21 10/19/2021 17:27:21 10/19/2021 17:27:21 ADDRESS: [address] [id number] PHYS DOC NOTES: MEDICAL INFORMATION: Prescriptions Given: Medications to Continue with No Changes Other Medications ethinyl estradiol-norgestima te (Sprintec oral tablet) Ib By Mouth every day. ibuprofen (ibuprofen 600 mg Tab) 1 Tablets By Mouth every 6 hours as needed as needed for pain. PATIENT EDUCATION INFORMATION: Instructions: Viral Respiratory Infection, Yxoq-Zl-Wdsv Follow up: With: Address: When: Salena ANTONIOMichelle In 3 days 10/22/2021 DIAGNOSIS: 1:Viral respiratory illness; Other viral agents as the cause of diseases classified elsewhere Normal [facility] ED Patient Education Noteon 10-19-2021 ED [...] home: Managing pain and congestion ? Take ysrg-wkr-ghkalwd and prescription medicines only as told by [...] and water are not available, use hand healthcare receptionist. ? Avoid contact with people who are [...] 05/13/2009 Document Revised: 06/08/2019 Document Reviewed: 07/11/2018 ANPI Patient Education ? 2019 [employer]. Normal [facility] ED Patient Summaryon 022 ED Patient Summary [place] [id number] Patient Discharge Instructions Person Information Name: MARIBEL VELEZ Age: 21 Years Arrival Date: 10/19/2021 17:05:16 Discharge Diagnosis: 1:Viral respiratory illness; Other viral agents as the cause of diseases classified elsewhere Primary Care Physician: JOSE G VENCES, NAIMA Joseph Provider Information Primary Provider: Advanced Team Leader:None The exam and treatment you received in the Emergency Department were for an urgent problem and are not intended as complete care. It is important that you follow up with a doctor, nurse practitioner, or physician?s assistant head cashier for ongoing care. If your symptoms become [...] provider. Patient Education Materials: Viral Respiratory Infection, Gbqh-Zv-Znzd A MESSAGE TO ALL PATIENTS REGARDING OPIOIDS PRESCRIPTION OPIOIDS: WHAT YOU NEED TO KNOW Prescription opioids can be used to help relieve vyixnwyx-pe-dmzgjt pain and are often prescribed following a [...] be struggling with addiction, tell your health landcare officer and ask for guidance or call [facility] National Helpline at 0-801-249-URNC. v Source: [place] Departmen (more content not included)... Normal [facility] Influenza A&B Agon 2 Influenzae A Ag Negative Normal Negative [facility] Comment on above: Performed By: #### 1 [id number] ####[facility] [address] [place] [address] Influenzae B Ag Negative Normal Negative [facility] Comment on above: Result Comment: Test sensitivity and specificity vary for age group, specimen type, antigen types, and prevalence of disease. Test results must be evaluated in conjunction with other clinical data available to the physician. Individuals who received nasally administered Influenza A vaccine may have positive test results up to 3 days after vaccination. Performed By: #### 1 [id number] ####[facility] [address] [place] [address] MICRO OTHER TESTSOrdered By: Mya Reza on 10-19-2021 Influenzae A Ag Negative (10/19/21 5:05 PM) Normal Negative [facility] Man Sero Influenzae B Ag Negative (10/19/21 5:05 PM) Normal Negative [facility] Man Sero Rapid COV Int NEG Ctl Pass (10/19/21 5:05 PM) Normal [facility] Man Sero Rapid COV Int POS Ctl Pass (10/19/21 5:05 PM) Normal [facility] Man Sero SARS-CoV+SARS-CoV-2 (COVID-19) Ag IA.rapid Ql (Resp) Not Detected (10/19/21 5:05 PM) Normal Not Detected [facility] Man Sero Rapid COVID Antigen ([facility])on 10-19-2021 Rapid COV Int NEG Ctl Pass [facility] Comment on above: Performed By: #### 2 [id number] ####[place] [address] [place] [address] Rapid COV Int POS Ctl Pass Normal [facility] Comment on above: Performed By: #### 2 [id number] ####[place] [address] [place] [address] SARS-CoV+SARS-CoV-2 (COVID-19) Ag IA.rapid Ql (Resp) Not detected Normal Not Detected [facility] Comment on above: Result Comment: The [employer] Foundation[employer]? System for Rapid Detection of SARS-CoV-2 is [...] or revoked sooner. Performed By: #### 2 [id number] ####[place] [address] ADMITTED TO INTENSIVE CARE UNIT FOR CONDITION OF INTEREST:FIND:PT: NO Normal [facility] Comment on above: Performed By: #### 2 [id number] ####[place] [address] EMPLOYED IN A HEALTHCARE SETTING:FIND:PT: NO Normal [facility] Comment on above: Performed By: #### 2 [id number] ####[place] [address] FIRST TEST FOR CONDITION OF INTEREST:FIND:PT: Unknown Normal [facility] Comment on above: Performed By: #### 2 [id number] ####[place] [address] HAS SYMPTOMS RELATED TO CONDITION OF INTEREST:FIND:PT: YES Normal [facility] Comment on above: Performed By: #### 2 [id number] ####[place] [address] HOSPITALIZED FOR CONDITION OF INTEREST:FIND:PT: NO Normal [facility] Comment on above: Performed By: #### 2 [id number] ####[facility] [address] [place] [address] STATUS:FIND:PT: NO Normal [facility] Comment on above: Performed By: #### 2 [id number] ####[facility] [address] [place] [address] RESIDES IN A CONGREGATE CARE SETTING:FIND:PT: NO Normal [facility] Comment on above: Performed By: #### 2 [id number] ####[facility] [address] [place] [address] US SINGLE QUAD RT UPPERon US SINGLE [...] by: SUGAR CAMARENA Date: 2021-09-19 11:51 Normal [facility] 08-05-2021 [place] [address] Nuclear Medicine Report Signed Patient: Maribel Velez MR#: [id number] : 2000 Acct:[id number] Age/Sex: 21 / F ADM Date: 08/05/21 Loc: [place] Room: Type: [facility] Attending Dr: Amy Tang DO Ordering [...] Amrit Cevallos M.D.08/05/2021 4:16 PM Dictation Location: [place] [address] Transcribed By: VANIA 08/05/211615 Dictated By: Amrit Cevallos DO 08/05/211610 Signed By: 08/05/211615 Normal [facility] HCG,Urineon 07-29-2021 Beta HCG ( test) Ql (U) Negative Normal [facility] Comment on above: Result Comment: PERF ORMED BY: [place] [address] PATHOLOGIST HEAVY THREADER EDDIE CORTÉS M.D. Performed By: #### U HCG #### [address] 07-29-2021 L Specimen: [id number] Received: 07/29/21 Status: AMMY Valdes Num: [id number] Spec Type: Surgical Subm Dr: Amy Tang Jr, DO Tissues: A Colon Biopsy (RANDOM BX) Procedures: HE Stain/2, Gross/Micro L4 Patient Age/Sex Location Account Attending Physician Maribel Velez / [id number] Amy Tang Jr, DO SPEC NUM: [id number] RECD: 07/29/21 STATUS: AMMY VALDES NUM: [id number] DIMITRI: 07/29/211054 [facility] DR: Amy Tang Jr, DO ENTERED: 07/29/[address] [facility] [address]: ELENA TYPE: Surgical DEPT: S [...] microscopic findings support the above pathologic diagnosis. [id number] Specimen: [id number] Received: 07/29/21 Status: AMMY Valdes Num: [id number] Spec Type: Surgical Subm Dr: Amy Tang Jr, DO Tissues: A Colon Biopsy (RANDOM BX) Procedures: HE Stain/2, Gross/Micro L4 Patient: Maribel Velez [id number] (Continued) Signed (signature on file) Eddie Cortés MD 07/30/21 9272 [facility] COVID-19 Antigenon 2 COVID-19 Antigen Healthcare [...] its performance Lucas Disclaimer characteristic determined by [employer] and Lucas Disclaimer validated at [facility]. This Lucas Disclaimer test has not been [...] is terminated or revoked sooner. PERFORMED BY: [place] [phone] PATHOLOGIST HEAVY THREADER EDDIE CORTÉS M.D. Normal [facility] Comment on above: Performed By: #### C OVID-19 LUCAS, SOFIANEG #### [address] Lucas Ag Negativeon 07-25-19 22 Lucas Ag Negative Negative Normal Negative [facility] Comment on above: Result Comment: This is a duplicate Lucas SARS Antigen (REINIER) result to be used for statistical tracking purpose only. PERFORMED BY: [place] [address] PATHOLOGIST HEAVY THREADER EDDIE CORTÉS M.D. Performed By: #### C OVID-19 LUCAS, SOFIANEG #### [facility] [address] [place] [address] COVID-19 Antigenon 2 COVID-19 Antigen Healthcare Worker?: [...] its performance Lucas Disclaimer characteristic determined by [employer] and Lucas Disclaimer validated at [facility]. This Lucas Disclaimer test has not been [...] is terminated or revoked sooner. PERFORMED BY: [place] [address] PATHOLOGIST HEAVY THREADER EDDIE CORTÉS M.D. Normal [facility] Comment on above: Performed By: #### S OFJOSE ANGELEG, COVID-19 LUCAS #### [address] Lucas Ag Negativeon 07-16-19 22 Lucas Ag Negative Negative Normal Negative [facility] Comment on above: Result Comment: This is a duplicate Lucas SARS Antigen (REINIER) result to be used for statistical tracking purpose only. PERFORMED BY: [place] [address] PATHOLOGIST HEAVY THREADER EDDIE CORTÉS M.D. Performed By: #### C UU #### [facility] [address] [place] [address] #### VAGINITIS+ #### [facility] , Patient Educationon [...] meters squared number. To calculate BMI with Tajik measurements: 1. Measure weight in lb. 2. [...] people from 2?20 years of age. Health managed care director use the charts to identify underweight and [...] 08/20/2004 Document Revised: 05/13/2018 Document Reviewed: 11/11/2016 ANPI Patient Education ? 2019 [employer]rink. Normal [facility] Urinalysis - AUTOMATEDon Appearance (U) cloudy [employer] Other Bilirubin Ql (U) Negative [employer] Other Color (U) yellow [employer] Other Glucose Ql (U) Negative [employer] Other Hemoglobin Ql (U) Negative [employer] Other Ketones Ql (U) Negative [employer] Other Leukocyte esterase Test strip Ql (U) small [employer] Other Nitrite Ql (U) Negative [employer] Other pH (U) 8.5 [pH] [employer] Other Protein Ql (U) Negative [employer] Other Specific gravity (U) [Rel density] 1.025 [employer] Other Urobilinogen (U) [Mass/Vol] 1.0 mg/dL [facility] [employer] Other Urinalysis - AUTOMATED [facility] [employer] Other Urine Cultureon 04-08-2021 Bacteria identified Cx Nom (U) Reason for Exam Vaginal discharge Urine 75,000 colonies/ml mixed bacterial skin contaminants 2 Days PERFORMED BY: [place] [address] PATHOLOGIST HEAVY THREADER EDDIE CORTÉS M.D. [facility] Comment on above: Performed By: #### C UU #### [address] #### VAGINITIS+ #### [facility] , Vaginitis Plus (VG+)on 04-08 Atopobium Vaginae Low - 0 Normal . [facility] Comment on above: Order Comment: Reaso n for Exam High risk bisexual behavior Performed By: #### C UU #### [address] #### VAGINITIS+ #### [facility] , BVAB2 Low - 0 Normal . [facility] Comment on above: Order Comment: Reaso n for Exam High risk bisexual behavior Performed By: #### C UU #### [facility] [address] [place] [address] #### VAGINITIS+ #### [facility] , Makayla Albicans, YUNIOR Positive Critically abnormal Negative [facility] Comment on above: Order Comment: Reaso n for Exam High risk bisexual behavior Result Comment: This test was developed and its performance characteristics determined by [facility]. It has not been cleared or approved by the Food and Drug Administration. Performed By: #### C UU #### [facility] [address] [place] [address] [place] #### VAGINITIS+ #### [facility] , Makayla Glabrata, YUNIOR Negative Normal Negative [facility] Comment on above: Order Comment: Reaso n for Exam High risk bisexual behavior Result Comment: This test was developed and its performance characteristics determined by [facility]. It has not been cleared or approved by the Food and Drug Administration. PERFORMED BY: [place] [address] PATHOLOGIST HEAVY THREADER EDDIE CORTÉS M.D. Performed By: #### C UU #### [address] #### VAGINITIS+ #### [facility] , Chlamydia Trachomotis, YUNIOR Negative Normal Negative [facility] Comment on above: Order Comment: Reaso n for Exam High risk bisexual behavior Performed By: #### C UU #### [facility] [address] [place] [address] #### VAGINITIS+ #### [facility] , Megasphaera Low - 0 Normal . [facility] Comment on above: Order Comment: [...] Administration. Performed By: #### C UU #### [facility] [address] [place] [address] [place] #### VAGINITIS+ #### [facility] , Neisseria Gonorrhoeae, YUNIOR Negative Normal Negative [facility] Comment on above: Order Comment: Reaso n for Exam High risk bisexual behavior Result Comment: Perf ormed at: =G - [facility] [address] [place] [id number] Help Desk Manager: Kim Anderson MD, Phone: [phone] Performed By: #### C UU #### [facility] [address] [place] [address] [place] #### VAGINITIS+ #### [facility] , Tric Vag YUNIOR Negative Normal Negative [facility] Comment on above: Order Comment: Reaso n for Exam High risk bisexual behavior Performed By: #### C UU #### [facility] [address] [place] [address] [place] #### VAGINITIS+ #### [facility] , XR [...] Josué Erickson MD 11/15/19 Final result Normal [facility] Normal right femur x-rays. [place] RIGHT FEMUR X-RAYS, 11/15/2019. HISTORY: Right hip and leg pain. COMPARISON: None. FINDINGS: AP and lateral views of the right femur were obtained. Bone mineralization is normal. Alignment is normal. There is no fracture. No dislocation. No degenerative changes. [place], [place] Sam, M[facility] Incoming Radiant Results From [employer] - 11/15/2019 6:01 PM EDT RIGHT FEMUR X-RAYS, 11/15/2019. HISTORY: Right hip and leg pain. COMPARISON: None. FINDINGS: AP and lateral views of the right femur were obtained. Bone mineralization is normal. Alignment is normal. There is no fracture. No dislocation. No degenerative changes. IMPRESSION: Normal right femur x-rays. [place], [place] ED Provider Noteon 9 Protein mass conc B [facility] ED eMERGENCY dEPARTMENT eNCOUnter Pt Name: Maribel Velez Birthdate 2000 Date of evaluation: 08/10/2018 Provider: Marek Watts, MOTOR VEHICLE ASSEMBLER - WILLOW MACHINE TENDER I have evaluated this patient on my [...] the Claritin, Tessalon, increase fluids, rest. Take gmgo-pxy-hifxqdw Tylenol or ibuprofen as if her pain. [...] Discharge 08/10/2018 10:34:25 AM PATIENT REFERRED TO: [place] [address] [address] [facility] [id number] Call As needed DISCHARGE [...] Provider KARMEN Urrutia CNP 08/10/18 1037 Normal [facility] Vital Signs Date Time Vital Sign Value Performing Clinician Facility 02-13-2022 07:25-0400 Diastolic blood pressure 98 mm[Hg] Kevin Santoro [facility] 02-13-2022 07:25-0400 Systolic blood pressure 153 mm[Hg] Kevin Santoro [facility] 02-13-2022 06:20-0400 Body temperature 98.24 [degF] Kevin Santoro [facility] 02-13-2022 06:20-0400 Diastolic blood pressure 74 mm[Hg] Kevin Santoro [facility] 02-13-2022 06:20-0400 Heart rate 75 /min Kevin Santoro [facility] 02-13-2022 06:20-0400 Respiratory rate 20 /min Kevin Santoro [facility] 02-13-2022 06:20-0400 SaO2% (BldA) [Mass fraction] 98 % Kevin Santoro [facility] 02-13-2022 06:20-0400 Systolic blood pressure 119 mm[Hg] Kevin Santoro [facility] 10-19-2021 17:09-0400 Body temperature 98.96 [degF] Miko Kaur [facility] 10-19-2021 17:09-0400 Diastolic blood pressure 84 mm[Hg] Miko Kaur [facility] 10-19-2021 17:09-0400 Heart rate 89 /min Miko Kaur [facility] 10-19-2021 17:09-0400 Respiratory rate 17 /min Miko Kaur [facility] 10-19-2021 17:09-0400 SaO2% (BldA) [Mass fraction] 100 % Miko Kaur [facility] 10-19-2021 17:09-0400 Systolic blood pressure 138 mm[Hg] Miko Kaur [facility] 09-17-2021 15:00-0400 Body weight 61.69 kg Amy Tang Other [facility] Other 06-25-2021 15:15-0500 Body weight 62.6 kg Amy Tang Other [facility] Other 04-08-2021 14:50-0400 Body height 163.83 cm Maribel Randall Other [facility] Other 04-08-2021 14:50-0400 Body mass index (BMI) [Ratio] 24.84 kg/m2 Maribel Randall Other [facility] Other 04-08-2021 14:50-0400 Body temperature 98.2 [degF] Maribel Randall Other [facility] Other 04-08-2021 14:50-0400 Body weight 66.68 kg Maribel Randall Other [facility] Other 04-08-2021 14:50-0400 Diastolic blood pressure 80 mm[Hg] Maribel Randall Other [facility] Other 04-08-2021 14:50-0400 Respiratory rate 18 /min Maribel Randall Other [facility] Other 04-08-2021 14:50-0400 SaO2% (BldA) [Mass fraction] 100 % Maribel Randall Other [facility] Other 04-08-2021 14:50-0400 Systolic blood pressure 131 mm[Hg] Maribel Randall Other [employer] Other Encounters Encounter Date Encounter Type Care Provider Facility Start: 01-20-2024 End: 01-20-2024 ambulatory KEITH JARRELL Not Available Start: 08-12-2023 End: 08-12-2023 ambulatory AMBREEN DAN Not Available Start: 07-10-2022 End: 07-10-[address] AMRIT VEE Facility:[facility] Start: 06-17-2022 End: 06-17-[address] JAYSON FIORE Facility:[facility] Start: 03-02-2022 End: 03-02-2022 ambulatory Lucia Thorne Facility:[facility] Start: 03-02-2022 End: 03-02-2022 Departed Referred MD Lucia Thorne Work Phone: [facility] Start: 02-13-2022 End: 02-13-2022 Emergency department patient visit Kevin Santoro [facility] Start: 02-03-2022 End: 02-03-2022 Patient encounter procedure CAITIE MARSHALL [facility] Start: 01-15-2022 End: 01-16-[address] NAIMA PEREZ Facility:[facility] Start: 10-19-2021 End: 10-19-2021 Emergency department patient visit Miko Kaur [facility] Start: 09-19-2021 End: 09-20-[address] NAIMA PEREZ Facility:[facility] Start: 09-17-2021 End: 09-17-2021 ambulatory Amy aTng Other [facility] Other Start: 09-17-2021 Office outpatient visit 15 minutes Amy Tang [facility] Start: 08-05-2021 End: 08-05-2021 ambulatory Amy Tang Facility:[facility] Start: 08-01-2021 End: 08-01-2021 ambulatory Amy Tang Other [facility] Other Start: 08-01-2021 Telephone encounter Amy Tang [facility] Start: 07-29-2021 Telephone encounter Amy Tang [facility] Start: 07-29-2021 End: 07-29-2021 ambulatory Amy Tang [facility] [employer] Other Start: 07-25-2021 End: 07-25-2021 ambulatory Amy Tang Facility:[facility] Start: 07-16-2021 End: 07-16-2021 ambulatory Amy Tang Facility:[facility] Start: 06-25-2021 End: 06-25-2021 ambulatory Amy Tang Other [facility] Other Start: 06-25-2021 Office outpatient visit 25 minutes mAy Tang [facility] Start: 04-08-2021 End: 04-08-2021 ambulatory Maribel Randall Facility:[facility] Start: 04-08-2021 Office outpatient visit 15 minutes Maribel Randall [facility] Start: 11-15-2019 End: 11-18-2019 Patient encounter procedure MICHAEL SMALLS [facility] Start: 11-15-2019 End: 11-17-2019 Subsequent hospital visit by physician Pauline Munoz Rad [address] [facility] Radiology Comment on above: Injury of right knee , initial encounter Start: 11-15-2019 End: 11-18-2019 Patient encounter procedure MICHAEL SMALLS [facility] Start: 11-15-2019 End: 11-17-2019 Subsequent hospital visit by physician Naima Perez [facility] Start: 08-10-2018 Emergency department patient visit UNKNOWN PROVIDER [facility] Procedures Date Procedure Procedure Detail Performing Clinician Start: 01-24-2020 Arthroscopy of knee Miko Kaur Start: 11-15-2019 Radiologic examinati on femur minimum 2 views MICHAEL SMALLS Start: 11-15-2019 Radiologic examinati on femur minimum 2 views Michael Smalls Other Phone: Plan of Treatment Date Care Activity Detail Author Start: 02-13-2020 Influenza vaccination Flu vaccine (Season Ended) [place] Start: 2018 Meningococcal (ACWY) vaccine (1 - 2-dose series) Meningococcal (ACWY) vaccine (1 - 2-dose series) [place] Start: 2018 Screening for Chlamydia trachomatis Chlamydia screen [place] Start: 2017 HIV screening HIV screen [place] Start: 2013 HPV vaccine (1 - 2-dose series) HPV vaccine (1 - 2-dose series) [place] Start: 2009 DTaP/Tdap/Td vaccine (1 - Tdap) DTaP/Tdap/Td vaccine (1 - Tdap) [place] Start: 2003 Hepatitis A vaccine (1 of 2 - 2-dose series) Hepatitis A vaccine (1 of 2 - 2-dose series) [place] Start: 2003 Measles,Mumps,Rubella (MMR) vaccine (1 of 2 - Standard series) Measles,Mumps,Rubella (MMR) vaccine (1 of 2 - Standard series) [place] Start: 2003 Varicella vaccine (1 of 2 - 2-dose childhood series) Varicella vaccine (1 of 2 - 2-dose childhood series) [place] Start: 2002 Polio vaccine (1 of 3 - 4-dose series) Polio vaccine (1 of 3 - 4-dose series) [place] Start: 2002 Hepatitis B vaccine (1 of 3 - 3-dose primary series) [place] Atopobium vaginae DN A [Presence] in Vaginal fluid by YUNIOR with probe detection [facility] Work Phone: Bacteria identified in Urine by Culture [facility] Bacterial vaginosis associated bacterium 2 DNA [Presence] in Vaginal fluid by YUNIOR with probe detection [facility] Work Phone: Megasphaera sp type 1 DNA [Presence] in Vaginal fluid by YUNIOR with probe detection [facility] Work Phone: Payers Date Payer Category Payer Medicaid [id number] 2021 Self-pay [id number] 2018 Unknown [employer] xxxxxxxxxxx 2018-Present [phone] [address] [place] [address] xxxxxxxxxxx [id number] 2018 Unknown [id number] 2002 Unknown [id number] 2.16.840.1.329286.3.579.2. 593 2002 Unknown [id number] 2.16.840.1.169357.3.579.2. 593 2002 Unknown [id number] 2.16.840.1.878790.3.579.2. 593 2002 Unknown [id number] 2.16.840.1.264009.3.579.2. 593 2002 Unknown [id number] 2.16.840.1.543394.3.579.2. 1259 1989 Unknown [id number] 2.16.840.1.170855.3.579.2. 174 1989 Unknown [id number] 2.16.840.1.660827.3.579.2. 174 1984 Unknown [id number] 2.16.840.1.208880.3.579.2. 668 1959 Medicaid [id number] Medicaid Private Health Insurance [facility] [id number] Unknown [id number] 2.16.840.1.229031.3.579.2. 531 Unknown [id number] 2.16840.1.851655.3.579.2. 531 Unknown [id number] 2.16840.1.740254.3.579.2. 531 Unknown [id number] 2.840.1.516670.3.579.2. 531 Unknown [id number] 2.840.1.720730.3.579.2. 531 Unknown [id number] 2.16840.1.770497.3.579.2. 531 Social History Date Type Detail Facility Start: 08-10-2018 Tobacco smoking stat [facility] Never smoker [facility] [place] Start: 08-10-2018 Alcohol intake Current non-dr capacity planning analyst of alcohol (finding) [place], [place] Sex Assigned At Not on file [place] Sex Assigned At Female [employer] Other Tobacco smoking status No Smokin g Status Entered [facility] Start: 2000 Sex Assigned At Female F [facility] Functional Status Date Assessment Result Facility 02-13-2022 Functional Status N/A [facility] Clinical Notes 04-08-2021 to 02-13-2022 Note [...] should change or worsen. Diagnosis: Rectal bleeding [facility]09-02-2022 Hospital Discharge instructions Patient Education 02/13/2022 07:28:37 Rectal Bleeding, Ubav-dm-Hwwz Rectal Bleeding Rectal bleeding is when blood [...] 02/10/2012 Document Revised: 05/13/2018 Document Reviewed: 07/26/2016 ANPI Patient Education 2020 [employer]. 02/13/2022 07:28:37 Hemorrhoids, Dkod-vs-Zwpc Hemorrhoids Hemorrhoids are swollen veins that may [...] 3 times a day. General instructions Take ygcj-brz-ooogwtz and prescription medicines only as told by [...] 03/09/2009 Document Revised: 06/08/2019 Document Reviewed: 10/20/2018 ANPI Patient Education 2020 [employer] Follow Up Care 02/13/2022 06:18:09 With:Yu GREENE Address: [facility] [address] [place], [place] [address]C[place] [address]- Business (1) When:02/16/2022 07:21:18 With:CAITIE MARSHALL Address:Unknown When:Within 3 Day(s) [facility]05-08-2022 Hospital Discharge instructions Patient Education 10/19/2021 17:18:27 Viral Respiratory Infection, Rrjg-Xp-Dwxd Viral Respiratory Infection A viral respiratory infection [...] at home: Managing pain and congestion Take hjgk-vum-vohatjz and prescription medicines only as told by [...] and water are not available, use hand healthcare receptionist. Avoid contact with people who are sick [...] 05/13/2009 Document Revised: 06/08/2019 Document Reviewed: 07/11/2018 ANPI Patient Education 2020 [employer] Follow Up Care 10/19/2021 17:07:38 With:Michelle Mata Address:Unknown When:10/22/2021 [facility]04-06-2022 Evaluation note* Encounter Date Diagnosis Assessment Notes Treatment Notes Treatment Clinical Notes Sep, Rectal bleeding (ICD-10 - K62.5) PATIENT STATES THIS HAPPENS EVERY COUPLE OF MONTHS Sep, Abdominal pain (ICD-10 - R10.9) PATIENT DID HAVE THIS LAST NIGHT ON THE RIGHT SIDE UNDER HER RIBS PATIENT DOES CONTINUE ON THE MEDICATION WILL ORDER SOME TESTING Sep, Diarrhea (ICD-10 - R19.7) [facility] Other 02-15-2022 Evaluation note* Encounter Date Diagnosis Assessment Notes Treatment Notes Treatment Clinical Notes Jul, Blood in stool (ICD-10 - K92.1) Jul, Abdominal pain (ICD-10 - R10.9) [facility] Other 01-12-2022 Evaluation note* Encounter Date Diagnosis Assessment Notes Treatment Notes Treatment Clinical Notes Jun, Diarrhea (ICD-10 - R19.7) Jun, Rectal bleeding (ICD-10 - K62.5) PATIENT ENCOURAGED TO HAVE A COLONOSCOPY START ABOVE MEDICATION Jun, Abdominal pain (ICD-10 - R10.9) [facility] Other 10-26-2021 Evaluation note* Encounter Date Diagnosis [...] up to a week to get back. [facility] Other Evaluation + Plan note No data available for this section [facility] [employer] Other Evaluation noteNo assessment information available [facility] Work Phone: History general Narrative - Reported* Type Description Date Medical History IBS Medical History Constipation Medical History allergies Surgical History right torn lateral meniscus [facility] [employer] Other Hospital Discharge instructions No data available for this section [facility] No data available for this section [facility] Summary Purpose Family History No Family History Records Found Relationship Condition Age at Onset Recorded Date/T patrice grandparent Cardiovascular disease Unknown grandparent Malignant neoplasm of thyroid gland Unkno wn Not Specified Malignant neoplasm of ovary Unknown father Asthma Unknown brother Asthma Unknown Advance Directives No Advanced Directives Records FoundDocuments on File Type Date Recorded Patient Director Of In Service Education Expl anation Advance Directives and Living Will Power of Garbage Worker Advance Directive Response Recorded Date/ Time Advance Directives No April 16, 2021 2:28pm Assessments Diagnosis Injury of right knee, initial encounter Chief Complaint and Reason for Visit Chief Complaint Dysuria Vaginal odor Additional Source Comments INFORMATION SOURCE (unrecogn ized section and content) DATE CREATED AUTHOR 08/20/2018 [employer] [facility] DATE CREATED AUTHOR AUTHOR'S ORGANIZ ATION 11/18/2019 [facility] DATE CREATED AUTHOR AUTHOR'S ORGANIZ ATION 02/17/2022 [facility] DATE CREATED AUTHOR AUTHOR'S ORGANIZ ATION 03/14/2022 [facility] DATE CREATED AUTHOR AUTHOR'S ORGANIZ ATION 07/13/2022 [facility] DATE CREATED AUTHOR AUTHOR'S ORGANIZ ATION 01/22/2024 [facility] Specialists EPIC REASON FOR VISIT [...] BE BASED ON THE PRIMARY CLINICAL RECORDS. [facility] [employer] [facility]. provides no warranty or guarantee of the accuracy or completeness of information in this document.
[2024-02-22 15:09] LABS: Age Gdln ACOG Testing Note (.); IGP, rfx Aptima HPV ASCU Note (.)
== END 2024-02-17 19:15 | disposition home or self-care (01) ==
LOC: LAB 19:14
PROVIDERS: Visit Provider Physician Assistant
DX: Z34.92 Encounter for supervision of normal pregnancy, unspecified, second trimester (principal); Z3A.17 17 weeks gestation of pregnancy; Z01.419 Encounter for gynecological examination (general) (routine) without abnormal findings
CPT/HCPCS: 36415; 82105; 88175

== ENCOUNTER 2024-03-16 10:40 | Outpatient (OUT) | payer MEDICAID, SELFPAY ==
--- NOTE | 2024-03-16 10:42 | US_ITS ---
[address] [address] Patient Name: AKILAH WEST MRN: [id number] date: 2000 Sex: F Assigned Patient Location: [facility] Current Patient Location: [facility] Accession/Order Number: [id number] Exam Date: 03/16/2024 10:43 Report Date: 03/16/2024 12:13 At the request of: HARSH ROWAN Procedure: US OB cervical length EXAMINATION: US OB anatomy, US OB cervical length HISTORY: ANATOMY COMPARISON: No relevant comparison available. TECHNIQUE: Transabdominal sonographic examination was performed for obstetrical and evaluation. FINDINGS: Number: 1 Heart Rate: 153 bpm H.B. /min Amniotic Fluid Volume: Subjectively normal position: Cephalic presentation, longitudinal lie Placental Location: Posterior, grade 1. The placental edge is 4.8 cm from the internal cervical os Cervix Length: 4.52 cm , closed Normal anatomy: Lateral ventricles, cerebellum, posterior fossa, nose, lips, orbits, four-chamber heart, diaphragm, stomach, kidneys, abdominal cord insertion, bladder, umbilical arteries, three-vessel cord, spine, extremities Nonvisualization: RVOT, LVOT BIOMETRY: BPD: 4.77 cm; 143 Day; 61.80 % HC: 18.19 cm; 144 Day; 62.90 % AC: 15.27 cm; 143 Day; 55.60 % FL: 3.35 cm; 143 Day; 55.10 % EFW:369.01 g; 65.70 % FL/AC: 21.94 FL/BPD: 70.23 HC/AC: 1.19 GESTATIONAL AGE: Age by EDC: 20 weeks 1 day WYATT by EDC: 2024-08-02 Age by current US: 20 weeks 3 days WYATT by current US: 2024-07-31 US/US OB cervical length IMPRESSION: Nonvisualization of the ventricular outflow tracts Otherwise normal anatomy scan Closed cervix measuring 4.5 cm in length *Reference: [employer] Practice Guideline for the performance of Obstetric Ultrasound Examinations, March 14, 2007. Electronically authenticated by: AMY ESCALANTE Date: 03/16/2024 12:13
--- NOTE | 2024-03-16 10:42 | US_ITS ---
[address] [address] Patient Name: AKILAH WEST MRN: [id number] date: 2000 Sex: F Assigned Patient Location: [facility] Current Patient Location: [facility] Accession/Order Number: [id number] Exam Date: 03/16/2024 10:43 Report Date: 03/16/2024 12:13 At the request of: HARSH ROWAN Procedure: US OB anatomy EXAMINATION: US OB anatomy, US OB cervical length HISTORY: ANATOMY COMPARISON: No relevant comparison available. TECHNIQUE: Transabdominal sonographic examination was performed for obstetrical and evaluation. FINDINGS: Number: 1 Heart Rate: 153 bpm H.B. /min Amniotic Fluid Volume: Subjectively normal position: Cephalic presentation, longitudinal lie Placental Location: Posterior, grade 1. The placental edge is 4.8 cm from the internal cervical os Cervix Length: 4.52 cm , closed Normal anatomy: Lateral ventricles, cerebellum, posterior fossa, nose, lips, orbits, four-chamber heart, diaphragm, stomach, kidneys, abdominal cord insertion, bladder, umbilical arteries, three-vessel cord, spine, extremities Nonvisualization: RVOT, LVOT BIOMETRY: BPD: 4.77 cm; 143 Day; 61.80 % HC: 18.19 cm; 144 Day; 62.90 % AC: 15.27 cm; 143 Day; 55.60 % FL: 3.35 cm; 143 Day; 55.10 % EFW:369.01 g; 65.70 % FL/AC: 21.94 FL/BPD: 70.23 HC/AC: 1.19 GESTATIONAL AGE: Age by EDC: 20 weeks 1 day WYATT by EDC: 2024-08-02 Age by current US: 20 weeks 3 days WYATT by current US: 2024-07-31 US/US OB anatomy IMPRESSION: Nonvisualization of the ventricular outflow tracts Otherwise normal anatomy scan Closed cervix measuring 4.5 cm in length *Reference: [employer] Practice Guideline for the performance of Obstetric Ultrasound Examinations, March 14, 2007. Electronically authenticated by: AMY ESCALANTE Date: 03/16/2024 12:13
== END 2024-03-16 10:41 | disposition home or self-care (01) ==
LOC: NOMS 10:40
PROVIDERS: Visit Provider Physician Assistant
DX: Z36.89 Encounter for other specified antenatal screening (principal); Z3A.20 20 weeks gestation of pregnancy
CPT/HCPCS: 76805; 76817

== ENCOUNTER 2024-04-28 10:15 | Outpatient (OUT) | payer MEDICAID, SELFPAY ==
--- NOTE | 2024-04-28 10:17 | US_ITS ---
[address] [address] Patient Name: AKILAH WEST MRN: [id number] date: 2000 Sex: F Assigned Patient Location: Current Patient Location: Accession/Order Number: [id number] Exam Date: 04/28/2024 10:30 Report Date: 04/29/2024 06:21 At the request of: KEITH JARRELL Procedure: US OB incomplete anatomy EXAM: US OB incomplete anatomy HISTORY: Follow Up Ultrasound Of Anatomy COMPARISON: Ultrasound OB anatomy 03/16/2024 TECHNIQUE: Transabdominal ultrasound FINDINGS: Heart rate: 134 bpm Presentation: Cephalic Anatomy: Four-chamber heart and cardiac outflow tracts adequately seen without appreciable abnormality. GA: 26 weeks 2 days WYATT: 08/02/2024 US/US OB incomplete anatomy IMPRESSION: 1. Single live intrauterine . 2. Adequate visualization of the cardiac outflow tracts; no appreciable abnormality. Electronically authenticated by: SUGAR CAMARENA Date: 04/29/2024 06:21
--- OUTSIDE RECORDS SUMMARY | 2024-04-28 10:33 | XMS_ITS | CCD ---
Author Organization [facility] Care Team Providers Care Drawer In Jacquard Loom Name Role Phone PROVIDER, UNKNOWN Attending Unavailable PROVIDER, UNKNOWN Referring Unavailable Balbina, PCP Primary Care Unavailable Joe Perez Primary Care Provider UnavailMICHAEL Staley Referring Unavailab JOE Asif Primary Care Unavailable MICHAEL SMALLS Referring Unavailab JOE Asif Primary Care Unavailable JOE PEREZ Primary Care Physician Maribel Randall Unavailable Amy Tang Unavailable CAITIE MARSHALL Primary Care Physician CAITIE MARSHALL Primary Care Physician [phone] MD Lucia Thorne Attending Provider [phone] Lucia Thorne Admitting Unavailable Lucia Thorne Attending Unavailable NON STAFF Primary Care Unavailable Amy Tang Attending Unavailable Amy Tang Admitting Unavailable Joe Perez Primary Care Unavailable Amy Tang Attending Unavailable Joe Perez Primary Care Unavailable Amy Tang Admitting Unavailable Maribel Randall Admitting Unavailable Maribel Randall Attending Unavailable [facility] Primary Care Unavaila ble Amy Tang Attending Unavailable Joe Perez Primary Care Unavailable Amy Tang Admitting Unavailable Amy Tang Attending Unavailable Joe Perez Primary Care Unavailable Amy Tang Admitting Unavailable PAY, DR MARCUS Admitting Unavailable PAY, DR MARCUS Attending Unavailable PAY, DR MARCUS Consulting Unavailable PEREZ, DR JOE Joseph Primary Care Unavailable MEDHAT PEREZ Consulting Unavailable JOSE G, DR JOE Joseph Primary Care Unavailable AMY TANG JR Admitting Unavailable ZIBIBI, DR SUGAR Zhang Consulting Unavailable AMY TANG JR Attending Unavailable AMY TANG JR Consulting Unavailable JOSE G, DR JOE Joseph Consulting Unavailable JOSE G, DR JOE Joseph Primary Care Unavailable JOSE G, DR JOE Joseph Admitting Unavailable JOSE G, DR JOE Joseph Attending Unavailable MACARENA, DR TYLER Admitting Unavailable JOSE G, DR JOE Joseph Primary Care Unavailable MACARENA, DR TYLER Attending Unavailable MACARENA, DR TYLER Consulting Unavailable Timmy VENCES, [facility] Provider Primary Care Provi fatuma AMBREEN DAN Attending Unavailable ELDON MCCRACKEN Attending Unavailable MARYCARMEN ROWAN Attending Unavailable MARYCARMEN ROWAN Attending Unavailable ELDON MCCRACKEN Attending Unavailable Allergies Allergy Classification Reported Allergen(s) Allergy Type Date of Onset Reaction(s) Facility (15 sources) Contrast media; 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: [red dye] Drug allergy 7 [facility] Other (6 sources) Red Dye #40 (Allura Red) Allergy to substance 3 [facility] Work Phone: Medications Current Medications Medication Drug Class(es) Dates Sig (Normalized) Sig (Original) sensor 200 actuat albuterol 0.09 mg/actuat dry powder inhaler (6 sources) beta2-Adrenergic Agonist Start: 03-08-2024 take 2 puff(s) by inhalation every four hours albuterol (ProAir Digihaler) 90 mcg/act breath-activated inhaler (w/ sensor) Inhale 2 puffs every 4 (four) hours if needed 03/08/2024 Active Start: 03-08-2024 Albuterol Sulf ate Active 2 INH INHALATION EVERY 4-6 HOURS 6.7 March 08, 2024 12:00am dicyclomine hydrochloride 20 mg oral tablet (2 sources) Anticholinergic Start: 08-01-2021 take 1 tablet by mouth every twelve hours Dicyclomine HCl 20 MG 1 tablet Orally TWICE A DAY for 30 day(s) Jul, Active docusate sodium 100 mg oral capsule (2 sources) Start: 03-16-2024 End: 04-15-2024 take 1 capsule by mouth twice daily as needed for constipation docusate sodium (Colace) 100 MG capsule Indications: Constipation, unspecified constipation type Take 1 capsule (100 mg) by mouth 2 (two) times a day as needed for constipation 30 capsule 2 03/16/2024 04/15/2024 Active {21 (Ethinyl Estradiol 0.035 MG / norgestimate 0.25 MG Oral Tablet) / 7 (Inert Ingredients 1 MG Oral Tablet) } Pack [Sprintec 28 Day] (2 sources) Progestin, Estrogen Start: 01-24-2020 take 1 tablet by mouth once daily Sprintec oral tablet Ib, Oral, Daily, control/menstrual regulation Start Date: 01/24/20 Status: Ordered fluconazole 150 mg oral tablet (1 source) Azole Antifungal Start: 04-08-2021 Diflucan 150 MG 1 tablet Orally take 1 tablet now for 1 days Mar, Active hydrOXYzine hydrochloride 10 mg oral tablet (1 source) Antihistamine Start: 08-20-2023 take 10 mg by mouth three times daily Hydroxyzine Hcl Active 10 MG PO Three times daily August 20, 2023 1:00am ibuprofen 600 mg oral tablet (3 sources) [...] mouth daily 30 tablet 0 08/10/2018 Active magnesium oxide 400 mg oral tablet (6 sources) Start: 02-17-2024 End: 09-14-2024 take 1 tablet by mouth once daily magnesium oxide (Mag-Ox) 400 MG tablet Indications: Nonintractable headache, unspecified chronicity pattern, unspecified headache type Take 1 tablet (400 mg) by mouth Daily 30 tablet 6 02/17/2024 09/14/2024 Active pramoxine hydrochloride 10 mg/ml rectal foam (1 source) Start: 02-13-2022 End: 02-20-2022 take 15 g rectal route twice daily ProctoFoam 1% Foam apply, Rectal, BID for 7 day(s), 15 gm, Refill(s) 0, [id number], 162, cm, 02/13/22 6:24:00 EDT, Height/Length Dosing, 61, kg, 02/13/22 6:24:00 EDT, Weight Dosing Start Date: 02/13/22 Stop Date: 02/20/22 Status: Ordered Lxetjsie-Ouc-Vo-FA ( 1 + IRON PO) (6 sources) Hrwmkadw-Kil-Va-FA ( 1 + IRON PO) Take by mouth Active Sprintec 28 (5 sources) Sprintec 28 Acti ve Sprintec oral tablet (1 source) Start: 01-24-2020 take 1 tablet by mouth once daily Sprintec oral tablet Ib, Oral, Daily, control/menstrual regulation Start Date: 01/24/20 Status: Ordered Completed/Discontinued Medications Medication Drug Class(es) Dates Sig (Normalized) Sig (Original) Cetirizine (1 source) Histamine-1 Receptor Antagonist Cetirizine HCl Not-Taking dextromethorphan hydrobromide 15 mg / guaiFENesin 400 mg / pseudoephedrine hydrochloride 60 mg oral tablet (1 source) alpha-Adrenergic Agonist, Uncompetitive G-chvaro-V-aspartat e Receptor Antagonist, Sigma-1 Agonist Start: 08-20-2023 End: 03-08-2024 take 4 tablets by mouth every twenty-four hours Pseudoephedrine-D m-Guaifenesin (Capmist Dm) 60-15-400 mg tablet Discontinued 1 TAB PO EVERY 4-6 HOURS August 20, 2023 1:00am March 08, 2024 6:15pm do not exceed 4 doses per 24 hrs Drospirenone-Ethinyl Estradiol (2 sources) Progestin, Estrogen Start: 07-28-2021 End: 08-20-2023 take 1 tablet by mouth once daily Drospirenone-Ethi nyl Estradiol Discontinued 1 TAB PO Daily July 28, 2021 1:00am August 20, 2023 3:21pm Start: 07-28-2021 take 1 tablet by get th once daily Drospirenone-Ethinyl Estradiol Active 1 TAB PO Daily July 28, 2021 1:00am hydrocortisone 25 mg/ml topical cream (4 sources) Corticosteroid Start: 06-25-2021 Anusol-HC 2.5 % 1 application Externally Twice a day for 14 days Jun, Not-Taking Hyoscyamine (1 source) Hyoscyamine Sulf ate Not-Taking predniSONE 20 mg oral tablet (1 source) Start: 08-20-2023 End: 03-08-2024 take 20 mg by mouth twice daily Prednisone Discontinued 20 MG PO Twice daily 03 18August 20, 2023 1:00am March 08, 2024 6:16pm Senna Leaves (1 source) Senna Not-Taking Problems Active Problems Problem Classification Problem Date Documented Da te Episodic/Chronic Abdominal pain (10 sources) Unspecified abdominal pain; 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: [Abdominal pain] Onset: 06-25-2021 Resolved: 09-17-2021 Episodic Anal and rectal conditions (5 sources) Rectal pain; 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: [Other specified diseases of anus and rectum] Episodic E Codes: Natural/environment (1 source) Bitten by cat, initial encounter; 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: [BITTEN BY CAT INITIAL ENCOUNTER] Onset: 06-18-2022 Episodic Gastrointestinal hemorrhage (11 sources) Rectal hemorrhage; 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: [Hemorrhage of anus and rectum] Onset: 06-25-2021 Resolved: 09-17-2021 Episodic Genitourinary symptoms and ill-defined conditions (4 sources) Dysuria; 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: [Dysuria] Onset: 03-02-2022 Episodic Hemorrhoids (1 source) Hemorrhoids; 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: [Unspecified hemorrhoids] Onset: 02-13-2022 Episodic Immunizations and screening for infectious disease (1 source) Contact with or exposure to other viral diseases; 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: [Exposure to 2019 novel coronavirus] 03-08-2024 Episodic Joint disorders and dislocations; trauma-related (3 sources) Tear of lateral meniscus of knee 01-24-2020 Episodic Open wounds of extremities (4 sources) Open bite of right hand, initial encounter; 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: [OPEN BITE RIGHT HAND INITIAL ENC] Onset: 06-17-2022 Episodic Other aftercare (1 source) snf (current) use of hormonal contraceptives; 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: [MCFP HORMONAL CONTRACEPTIVES] Onset: 06-18-2022 Episodic Other circulatory [...] syndrome with constipation] Chronic Other gastrointestinal disorders (2 sources) Diarrhea; 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: [Diarrhea, unspecified] 07-29-2021 Episodic Other gastrointestinal disorders (2 sources) Constipation; 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: [Constipation, unspecified] 03-16-2024 Episodic Other lower respiratory disease (1 source) Disorder of respiratory system; 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: [Other specified respiratory disorders] Onset: 10-19-2021 Episodic Other and delivery including normal (4 sources) Second trimester ; 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: [Encounter for supervision of normal , unspecified, second trimester] 03-16-2024 Episodic Other screening for suspected conditions (not mental disorders or infectious disease) (2 sources) Patient encounter status; 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: [Encounter for screening for diabetes mellitus] 04-17-2024 Episodic Other upper respiratory infections (3 sources) Acute upper respiratory infection, unspecified; 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: [Acute pharyngitis, unspecified] Onset: 08-10-2018 03-08-2024 Episodic Residual codes; unclassified (2 sources) Gestation period, 20 weeks; 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: [20 weeks gestation of ] 03-16-2024 Episodic Residual codes; unclassified (4 sources) Gestation period, 24 weeks; 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: [24 weeks gestation of ] Onset: 04-17-2024 04-17-2024 Episodic Skin and subcutaneous tissue infections (1 [...] Classification Problem Date Documented Da te Episodic/Chronic Malaise and fatigue (4 sources) Other fatigue; [...] Test Name Value Interpretation Reference Range Facility Urinalysis macro (dipstick) panel (U)on 04-17-2024 Bilirubin, UA Negative Negative - 4(70) +++ mg/dL [facility] Blood, UA Negative Negative - 50 Erwin/mcL [facility] Clarity, UA Clear [facility] Healthca re Color, UA Yellow [facility] Healthcar e Glucose, UA Negative Negative - 2000(110) ++++ mg/dL [facility] Interpretation and review of laboratory results Normal [facility] Ketones, UA Negative Negative - 160(16) ++++ mg/dL [facility] Leukocytes, UA Negative Negative - 500+++ Kevin/mcL [facility] Nitrite, UA Negative Negative - Positive [facility] Healthcare pH, UA 6 5 - 9 [facility] Protein, UA Negative Negative - 1999(20) ++++ mg/dL [facility] Healthcare Spec Grav, UA 1.02 1 - 1.03 [facility] care Urobilinogen, UA 0.2 0.2 - 12 mg/dL [facility] Healthcare [facility] Healthcar e Urinalysis macro (dipstick) panel (U)on 03-16-2024 Bilirubin, UA Negative Negative - 4(70) +++ mg/dL [facility] Blood, UA Negative Negative - 50 Erwin/mcL [facility] Clarity, UA Clear [facility] Healthny re Color, UA Yellow [facility] Healthcar e Glucose, UA Negative Negative - 1999(110) ++++ mg/dL [facility] Interpretation and review of laboratory results Normal [facility] Ketones, UA Negative Negative - 160(16) ++++ mg/dL [facility] Leukocytes, UA Negative Negative - 500+++ Kevin/mcL [facility] Nitrite, UA Negative Negative - Positive [facility] pH, UA 5.5 5 - 9 [facility] Healthcar e Protein, UA Negative Negative - 1999(20) ++++ mg/dL [facility] Spec Grav, UA 1.020 1 - 1.03 [facility] Urobilinogen, UA 1.0 0.2 - 12 mg/dL [facility] Healthcar e No Panel InformationOrdered By: Shanice Bustamante on 03-08-2024 Quick Strep (POC) [facility] CULTURE URINEon 07-12-2022 CULTURE URINE Isolate 1 [...] S F Tetracycline >=16 R F Normal [facility] Comment on above: Performed By: #### U RCX #### [facility] [address] [place] [address] Dr. Venancio Soriano ER URINE PROFILEon 3 Bilirubin Ql (U) Negative Normal NEGATIVE [facility] Comment on above: Performed By: #### U MICRO, PREGU, ERUR #### [facility] [address] [address] [address] Venancio Soriano Clarity (U) CLEAR Normal CLEAR [facility] Comment on above: Performed By: #### U MICRO, PREGU, ERUR #### [facility] [address] [address] [address] Venancio Soriano Color (U) LT. YELLOW Normal YELLOW [facility] Comment on above: Performed By: #### U MICRO, PREGU, ERUR #### [facility] [address] [address] [address] Venancio SALINASD A micrscopic examination will be performed if indicated. Normal [facility] Comment on above: Performed By: #### U MICRO, PREGU, ERUR #### [facility] [address] [address] [address] Venancio Soriano Glucose Ql (U) Negative Normal NEGATIVE [facility] Comment on above: Performed By: #### U MICRO, PREGU, ERUR #### [facility] [address] [address] [address] Venancio Soriano Hemoglobin Ql (U) TRACE-INTACT Abnormal NEGATIVE [facility] Comment on above: Performed By: #### U MICRO, PREGU, ERUR #### [facility] [address] [address] [address] Venancio Soriano Ketones Ql (U) Negative Normal NEGATIVE [facility] Comment on above: Performed By: #### U MICRO, PREGU, ERUR #### [facility] [address] [address] [address] Venancio Soriano LEUKOCYTES SMALL Abnormal NEGATIVE [facility] Comment on above: Performed By: #### U MICRO, PREGU, ERUR #### [facility] [address] [address] [address] Venancio Soriano Nitrite Ql (U) Negative Normal NEGATIVE [facility] Comment on above: Performed By: #### U MICRO, PREGU, ERUR #### [facility] [address] [address] [address] Venancio Soriano pH (U) 6.0 [pH] Normal 5-9 [facility] Comment on above: Performed By: #### U MICRO, PREGU, ERUR #### [facility] [address] [address] [address] Venancio Soriano SPEC GRAVITY 1.025 Normal 1.005-<=1.02 5 [facility] Comment on above: Performed By: #### U MICRO, PREGU, ERUR #### [facility] [address] [address] [address] Venancio Soriano UA PROTEIN Negative Normal NEGATIVE/ TRACE [facility] Comment on above: Performed By: #### U MICRO, PREGU, ERUR #### [facility] [address] [place] [address] Dr. Venancio Soriano UR MICRO IND INDICATED Normal [facility] Comment on above: Performed By: #### U MICRO, PREGU, ERUR #### [facility] [address] [address] [address] Venancio Soriano Urobilinogen Qn (U) 0.2 {Erick'U}/dL Normal 0.2 - 1. 0 [facility] Comment on above: Performed By: #### U MICRO, PREGU, ERUR #### [facility] [address] [address] [address] Venancio Soriano URon 07-10-2022 , QUAL Negative Normal NEGATIVE [facility] Comment on above: Performed By: #### U MICRO, PREGU, ERUR #### [facility] [address] [address] [address] Venancio Soriano URINE MICROSCOPIC ONLYon BACTERIA TRACE Abnormal NONE SEEN [facility] Comment on above: Performed By: #### U MICRO, PREGU, ERUR #### [facility] [address] [place] [address] Dr. Venancio Soriano Bacteria identified Cx Nom (U) INDICATED Normal [facility] Comment on above: Performed By: #### U MICRO, PREGU, ERUR #### [facility] [address] [address] [address] Venancio Soriano CAST NONE SEEN Normal NONE SEEN [facility] Comment on above: Performed By: #### U MICRO, PREGU, ERUR #### [facility] [address] [address] [address] Venancio Soriano Crystals LM Nom (Urine sed) NONE SEEN Normal NONE SEEN [facility] Comment on above: Performed By: #### U MICRO, PREGU, ERUR #### [facility] [address] [address] [address] Venancio Soriano Epithelial cells LM Ql (Urine sed) RARE Normal NONE SEEN /RARE [facility] Comment on above: Performed By: #### U MICRO, PREGU, ERUR #### [facility] [address] [place] [address] Dr. Venancio Soriano MUCOUS NONE SEEN Normal NONE SEEN [facility] Comment on above: Performed By: #### U MICRO, PREGU, ERUR #### [facility] [address] [address] [address] Venancio Soriano RBC 0-2 Normal 0-2 [facility] Comment on above: Performed By: #### U MICRO, PREGU, ERUR #### [facility] [address] [address] [address] Venancio Soriano WBC 5-10 Abnormal NONE SEEN [facility] Comment on above: Performed By: #### U MICRO, PREGU, ERUR #### [facility] [address] [address] [address] Venancio Soriano Urine Cultureon 03-02-2022 Bacteria identified Cx Nom (U) Reason for Exam Dysuria Urine No Growth 2 Days PERFORMED BY: [place] [address] LIGHT SERVICER EDDIE CORTÉS M.D. Normal [facility] Comment on above: Performed By: #### V AGINITIS+ #### [facility] , #### CUU #### [facility] [address] [place] [address] [place] Vaginitis Plus (VG+)on 03-02 Atopobium Vaginae Moderate - 1 Normal . [facility] Comment on above: Order Comment: Reaso n for Exam Vaginal odor Performed By: #### V AGINITIS+ #### [facility] , #### CUU #### [address] BVAB2 Low - 0 Normal . [facility] Comment on above: Order Comment: Reaso n for Exam Vaginal odor Performed By: #### V AGINITIS+ #### [facility] , #### CUU #### [address] Makayla Albicans, YUNIOR Negative Normal Negative [facility] Comment on above: Order Comment: Reaso n for Exam Vaginal odor Result Comment: This test was developed and its performance characteristics determined by [facility]. It has not been cleared or approved by the Food and Drug Administration. Performed By: #### V AGINITIS+ #### [facility] , #### CUU #### [address] Makayla Glabrata, YUNIOR Negative Normal Negative [facility] Comment on above: Order Comment: Reaso n for Exam Vaginal odor Result Comment: This test was developed and its performance characteristics determined by [facility]. It has not been cleared or approved by the Food and Drug Administration. PERFORMED BY: [place] [address] LIGHT SERVICER EDDIE CORTÉS M.D. Performed By: #### V AGINITIS+ #### [facility] , #### CUU #### [address] Chlamydia Trachomotis, YUNIOR Negative Normal Negative [facility] Comment on above: Order Comment: Reaso n for Exam Vaginal odor Performed By: #### V AGINITIS+ #### [facility] , #### CUU #### [facility] [address] Megasphaera Low - 0 Normal . [facility] Comment on above: Order Comment: Reaso [...] AGINITIS+ #### [facility] , #### CUU #### [address] Neisseria Gonorrhoeae, YUNIOR Negative Normal Negative [facility] Comment on above: Order Comment: Reaso n for Exam Vaginal odor Result Comment: Perf ormed at: =G - [facility] [address] [id number] Risk Mgr: Kim Anderson MD, Phone: [phone] Performed By: #### V AGINITIS+ #### [facility] , #### CUU #### [facility] [address] [place] [address] Tric Vag YUNIOR Negative Normal Negative [facility] Comment on above: Order Comment: Reaso n for Exam Vaginal odor Performed By: #### V AGINITIS+ #### [facility] , #### CUU #### [facility] [address] [place] [address] Coding Summary.on 02-17-2022 Coding Summary. [id number] Gh0bWw+PGhlYWQ+PE1FV ZZnC58tdSMzpB8JC4uXA Z0ZYPVBWVFUHP9MIA6lb DC2EPtpS5AzglAn XiuzjGOlFH39ARm1USU5 gVfuDAjkbW7ecSVqH7y9 DuHkIA53mD52LGmpLCRd DrS2AeKbhleazIUp D2bhMaMvqVZbIfg+PHRh YmxlIHdpZHRoPScxMDAl QvPxyJrcAU8fXw4oCAPq LWNvbGxhcHNlOiBj k6wvMNAiYUodWQ6wrQma Y3MabDE4CVUue5u7Dr76 dHI+NMWwCVT3aRdqZKya f787FoXsy0iiZNY8 mIGhCWrtGFJ0P04yk8T4 LVXoVIMcOWD9bQL0mL4n fUfmnukjC8CcyQOkEuP3 XSV0pCMkpE4dwLds eqimeV5vYdh+Q88HCM4H RZFJAD6SQhr8H4HyVlui dHI+AT89DEKoWT67aAAt hCSid7wjxCl4IjRn PKZhGIO5dNhkDDkwr8Eg XZAjC64efFSvp7N6GPAi bKpgrNGoGaXweFK2sW7o RErlmhxiq1ikpomy Xtzxj8vism37jC72N19f BLwkVLSiTJF5OUWqPAEy aUxdhk1deX0oFx5+IDxj d6sht6bosYa2LlUy TJPlezFrmPzmODP0p9Dw Pb20X7KpgAldu7GcQhu5 tf02dGHnj6L3gJL6WTym HWVyzA2jPHghSnF7 UAKvBnQshK98qDAoVWqh Er8ltEkhqDwyWR3aDEIx kkpfEVWlnH4tZOEetYIp sJdrEF2lYHVoromn k624IzVzOGR4HFYwuAUm G2VgsT0zWnZyDDTeKDQd A3EjuZNpPBjhJ346JAsf LbU4WUGvavMmV8Bi BWCbpYrpLkD1d0T0Bb1J c8VaejuhPMI1POvzUJT7 TaD4AbUtDoM1G9KjEtd6 OAHxaSpoUL8eQ4Pm LZEnpopftvhboVD2AWLb DXEvnS37dSTmLMipGl1u q4P1a016UEIvTVQjqT09 Pa9awVmvVUKgrYRW kR2ddcdzl3zzrszfIcOy VQUkLIh1QVp7JYWlaFhr AcJcADH0JmI9CWO4xDAy jU4ixNzjgphjfK8i Oyc+Q13roF0bNIK2DFK2 nhpwCEQarjBlAU50KX33 J5AmKufdrDJmpLF+PGRp jcEgzRpqBM6nWfXk m3dpj4TtUWtwM6EyVCRi LKsdJfb2RSWeBBG6fBQ3 rS5fCBDvQPjju3N2sFI3 A4JnqfOedl0zs0wf UPAmTMjbX16rzTZly9X8 OSCkmFL9PHFytPoePzGp xY66Bci+KVNvuBppo8Cw Hrkua4xhr5axqZx7 IjMwJSIgdmFsaWduPSJ0 g2TdHv25K77lUVkeFLJn UKVdXUDqGZJgjFxalx7h pL8hMe1+PGNvbCB3 cVC5hY5lKAIvVoO6HTuy G871YmDijAPlDmksi4bh e1fjqDd8CqQhGIGwapDf xUaoBUT0d8OkQc98 P75qPKxmMTLyYRXjSPQj ZTGwuXacwb2vwI0yLb5+ VL3zd5nvew51qY07nTN+ FMAkEDB3aRnlVSyw CGArgW2eLVpiGbB6PBBg EwAtbI81cEKsATwxHx5x gLmavLggKF9pJZOdzuhs f176UaVfh0mnXLXx rBCuCZzeHEU3I14jj2T7 GFZeTJHxJLM1iNZ6kQ0f bGlnbjogbGVmdDsgdmVy iSnpYApmXIenP555 IHRvcDsnPlBhdGllbnQg BbYgXUh7S6GaZsm6WCTv xKzuDX5rwWVwXOmgOq8v sPvrkBtuTH0jXIKk rkywy388KyQxf5epBPZy zAWvZTjpRVV7A69hz1L3 UAIyDMUvFQP2rBY9zN7k bGlnbjogbGVmdDsg glFwsNirKTzlIArvL999 IHRvcDsnPkJpcnRoIERh yRC2HD03SF47zZXpj9A5 sPY8F6OuABIsxwjd swjikQF0GDDeZDVhpM91 Ca1hwTciPt8bKHAjEPW5 ZCWahVQbR9HksN1pIeZn ASDmQTGtP7OwtNMv FZhkD872ZExyPxF5IBHj lmMhJ7XiBQChjMhdYvB6 a3K3Sa5CI7K9RJ09MQ01 dFDuz7D4qKK7I1Hi ZHKjvgqukwismQG0DUQy UAVnpW95Bq2zwBumFl9s VGOqTDA8TTLfbOJkC5Td uC5pCaOsEOYsCGSh Q6CdeWEbGQmzH337SOwb RqI8JYZbvfJgV2VcUVKu mKyzDpI2m5S1It8ZGPe5 JC76IS87vRNkr1X7 sQP8V6HoPCDpkqgphhej nPH8JYWvTSLcjZ30Gu6t rTtqIl7cFNPrRZK5GIYa aWLrF4ZovE8wRmSq DWEqDHRzJ0MsuZXeSEmr A504JNrjJeI4EMAubwJl Q4OzKZMjiFlpPlX5r2R7 Ez9QQLReTG26QDP2 mNK6ZQ25FL66Y3YuKjnj dGFibGU+PHRhYmxlIHdp ZHRoPScxMDAlJyBzdHls JQ8xDm6xGGBzKQHl tOvizQDeHbXzg1ajYPMk IUvhRT8daEjcH4ZcgSB7 OXKgj9o8Ec52K40uW0Ik dXA+WYMssOW3eYY2 gQ5aVbErUoU6QQlnO966 TqHyiLIxKwvfz8vnj9bg tRw4MkV1YXIzheYswLiv GWZ9x4BsZs32Y29j IHdpZHRoPSIxNSUiIHZh eTddpg1euC9fQr6+PGNv nNL7dDW6zW8cCrGdGiM0 QTzpV589MaDwvQPn Fvoin0bud3xzyFr8IrJc GWLkdeOqlIbuLBG8r4Gx Pg01C1IryZzmu8OeLxs6 bz24nMPiw6Z0bEG6 I1NiUUQyuiavoPImqYkr OB6bJGNrfxajNXVumC7q GOLlA2n8EmDxJuX3XOiq Q6KegjT7KGMsbYVt YScgYQZ3W32rz8W2AYEz DXVgGQX0gOK0lN7zkNmq bjogbGVmdDsgdmVydGlj OHtqFEqgT414FTKf tNdiZMTrfF1hYFFwnYAq gIfcKM0cQMFzmoavNhQW SPeEEJroF5LRKYgMOgqA YJ56YU53yFDzx4H9 nQE3Q9RxAXNgypauvury rDW4FGNeUZYrbR47dFVo RUviPv9xm1L3o885AAGj YASwcL81Rs8whFow CHPeoMHAgT0vfhyzm8ny cmpyGdDeYLDlZOq6QBp3 ANOioFamAyKfWFI6OrO6 PEX9cRNhaB7rhOak nvxpiA9kKaz+MDIvMTkv MjAwMzwvdGQ+PHRkIHN0 uUetBBkeIHYquV7rANHs B9r0HjVtMtW1NYev D6DiDCCdcardVt77gS9u PtEkSvW1LEmbE4OvtiW1 YGAyjJSoLPrcDCE6D26w e3E6WNIfSQMjMED9 cCT0dM2ubCqoqkownZAz dDsgdmVydGljYWwtYWxp W448FQZjdUijCwI2HBwz XERaQY50KD97kUGq r1D9qRH8A4VoGYAgtllm yoezlAA2FKPeIIVkzW46 aYWtKNiuNy1er0D7o267 YREeTZZvdH05Vq8b zHbpKDWxaAFJkI5bjjps x4qtvefzJxAsYQOrGIo2 YOk2LVWnrGalFhHyIOA5 EmW5VJA4yKHloR6d vNoumurytT4uCdv+RmVt LLbqBB11GT88fKRyw5W7 fIV9I8IuWHQdttnfeeaw pDT9QZSlVFFxeV09 hTXxYDsoFw0or9T0w561 VZQyTFFllW19Ad7atFcw XZMaoMGZhO3snydsh5dd cjogIzAwMDAwMDt0 MGm5DCIuoDgpAfRhZIP8 KiQ9JZV2eUMspM5xkYkv wftshV4bRsw+AR1pjvop ugD2PO15CP16Y9Jf PjwvdGFibGU+PHRhYmxl IHdpZHRoPScxMDAlJyBz yCoyAE5uDs2dSUNuQJQt pVoyhSFxSzXem7ny OXTjWRmtCT0bkCowX5Uq qXQ1JEEbr9y8If82Y55m D4MgoDC+UPDeiGY9vJU2 uP0sBeHmNpJ4UWan Z556YrZhyCPfIwcbj4lv f4qiwBk5HbRuYRTvyoWt kUgfXEX3a0FhAt41X63p IHdpZHRoPSIyMCUi ATPmuClagd2loJ6eBf0+ JYUwrZB9hRC7cO5kOrTe BlA4IQsfJ736TlYlkIAi KgbxO49lD4WuoYW+ OYBfOlb3YZOlhTtlYP1m tVRyRCdhUq7eBBQ4OjCw FdLnMCeaZ0JeHUWfcxot xjduaVG4VRGlQQGv sS32Us0elCyaDh4lFZMq IEM4OWUqlWGoO5GzjT9k UeOkGFCsRDJcD1GqtKIw GEyuP313NQzgDrY8 VFUhznQbN8DfMVSicWaa OnI9r2P5Ru9QaXmcnQVq NM8hRxJfPEl0R9ClJuo1 DYCldYkkFI9auYGd NXxeJw9zvNizoImrRI1p URLlemtqf658UyCag5yy GSXarSFgYVluSOU3T62y p4G3XVDlOCZgPNZ4 oMW0wA8tiNhymewquPMw dDsgdmVydGljYWwtYWxp A733NIRusKgvDhMOIsp2 O8FzOpg5JOCjvAci TW1jtPYuVZvxVd0uzZlr vKzlCQ0jMVLwmhlju480 ZvSpf5pxINKcgZAgOFfr FDY2M77zt1X3YFLe CJIrGHO1tQG2yH9hiXws bjogbGVmdDsgdmVydGlj BQceNUxoQ294GECcdKkh Iq7TAdu2C9IzAjl5 NIFuuZyoXO4xnWVaBSid Jd4tzPtieHbkZQ8cVSBr yhlzl396TbUtj9ykWYFf xOFcGJelLJU4R63v a1B4FAOeTMIvHCH7vOI4 aH5rxGinnbgngLUhaKby nvOggOulVYckYHpcE944 IHRvcDsnPlBheWVy OjwvdGQ+NW18tq95J7Qf NvjwUyj4VGQlSLS5yJW1 yR4sKRVaRKoge0V0qXZ0 W0EjoeIqmo7sb9gs YXBz (more content not included)... Normal [facility] Auto Diffon 02-13-2022 Basophils/100 WBC (Bld) 0.9 % Normal 0.0-2.0 [facility] Comment on above: Order Comment: Order Added by Discern Expert. Performed By: #### 2 536290, 5890427, 34873509, 1510850, [id number] ####[address] [place] [address] Basophils/Leukocytes Auto (Bld) [Pure # fraction] 0.1 E9/L Normal 0.0-0.2 [facility] Comment on above: Order Comment: Order Added by Discern Expert. Performed By: #### 2 729978, 2608168, 76522472, 6843958, 70766537 ####[address] [address] Eosinophils/100 WBC (Bld) 0.6 % Normal 0.0-8.0 [facility] Comment on above: Order Comment: Order Added by Discern Expert. Performed By: #### 2 815242, 4167612, 28040724, 6447653, 07039584 ####[address] [address] Eosinophils/Leukocyte s Auto (Bld) [Pure # fraction] 0.0 E9/L Normal 0.0-0.5 [facility] Comment on above: Order Comment: Order Added by Discern Expert. Performed By: #### 2 741251, 5966524, 41638806, 2154158, 35548438 ####[address] [address] Lymphocytes/100 WBC (Bld) 46.4 % Normal 14.0-50.0 [facility] Comment on above: Order Comment: Order Added by Discern Expert. Performed By: #### 2 705563, 7777911, 24790875, 2871417, 51031699 ####[address] [place] [address] Lymphocytes/Leukocyte s Auto (Bld) [Pure # fraction] 3.1 E9/L Normal 1.0-4.0 [facility] Comment on above: Order Comment: Order Added by Madeleine Expert. Performed By: #### 2 660885, 2869219, 21742449, 6029886, 59226362 ####[address] [place] [address] Monocytes/100 WBC (Bld) 8.2 % Normal 4.0-14.0 [facility] Comment on above: Order Comment: Order Added by Discern Expert. Performed By: #### 2 127866, 9379070, 88854060, 1867175, 77593680 ####[address] [place] [address] Monocytes/Leukocytes Auto (Bld) [Pure # fraction] 0.6 E9/L Normal 0.2-1.0 [facility] Comment on above: Order Comment: Order Added by Madeleine Expert. Performed By: #### 2 078532, 0094530, 61402343, 7600077, 58458950 ####[address] [address] Neutrophils/100 WBC (Bld) 43.9 % Normal 36.0-75.0 [facility] Comment on above: Order Comment: Order Added by Madeleine Expert. Performed By: #### 2 206595, 8540202, 59844800, 5142816, 17842291 ####[address] [address] Neutrophils/Leukocyte s Auto (Bld) [Pure # fraction] 3.0 E9/L Normal 2.0-7.5 [facility] Comment on above: Order Comment: Order Added by Madeleine Expert. Performed By: #### 2 965106, 1675485, 61471580, 6433179, 42588591 ####[address] [address] BB Draw & Holdon 02-13-2022 BB D&H Sample drawn for Blood Ba Normal [facility] Comment on above: Performed By: #### 2 265757, 0538395, 60255029, 6058122, 28475162 ####[address] [address] CBC w/ Auto Diffon Erythrocyte distribution width (RBC) [Ratio] 13.3 % Normal 10.9-14.2 [facility] Comment on above: Performed By: #### 2 475122, 2233981, 04718772, 7887185, 31887897 ####[address] [address] Hematocrit (Bld) [Volume fraction] 34.1 % Normal 34.0-46.0 [facility] Comment on above: Performed By: #### 2 967118, 4488207, 39600461, 0272723, 63240822 ####[address] [address] Hemoglobin (Bld) [Mass/Vol] 11.7 g/dL Low 12.0-16.0 [facility] Comment on above: Performed By: #### 2 968605, 8900823, 00947305, 1681420, 58789377 ####[address] [address] MCH (RBC) [Entitic mass] 29.9 pg Normal 27.0-34.0 [facility] Comment on above: Performed By: #### 2 854094, 6415454, 59893830, 3855116, 89778579 ####[address] [address] MCHC (RBC) [Mass/Vol] 34.4 g/dL Normal 31.4-36.0 [facility] Comment on above: Performed By: #### 2 244221, 8853569, 68563231, 1759223, 58239169 ####[address] [address] MCV (RBC) [Entitic vol] 86.8 fL Normal 80.0-100.0 [facility] Comment on above: Performed By: #### 2 173802, 5527931, 69484750, 6874226, 72803197 ####[facility] [address] [place] [address] Platelet mean volume (Bld) [Entitic vol] 7.9 fL Normal 6.4-10.8 [facility] Comment on above: Performed By: #### 2 537967, 4786414, 79565847, 4367322, 86640777 ####[facility] [address] [place] [address] Platelets (Bld) [#/Vol] 329.0 E9/L Normal 150.0-500.0 [facility] Comment on above: Performed By: #### 2 920412, 7162752, 51361804, 3215668, 19422066 ####[address] [place] [address] RBC (Bld) [#/Vol] 3.9 E12/L Low 4.3-5.9 [facility] Comment on above: Performed By: #### 2 057710, 4222829, 94571917, 4255256, 98620710 ####[facility] [address] [place] [address] WBC corrected for nucl RBC Auto (Bld) [#/Vol] 6.7 E9/L Normal 4.0-11.0 [facility] Comment on above: Performed By: #### 2 095562, 3276890, 50656173, 3409388, 56421055 ####[address] [address] CHEMISTRYOrdered By: SYSTEM SYSTEM on 02-13-2022 Albumin [Mass/Vol] 4.3 g/dL Normal 3.3 - 5.0 gm/dL [facility] Albumin/Globulin [Mass ratio] 1.3 {ratio} Normal 1.1 - 2.2 [facility] ALP [Catalytic activity/Vol] 55 [iU]/d Normal 21 - 98 Int._Unit/L [facility] ALT No additional P-5'-P [Catalytic activity/Vol] 12 [iU]/d Normal 6 - 46 Int._Unit/L [facility] Anion gap [Moles/Vol] 10 mmol/L Normal 6 - 16 mEq/L [facility] AST [Catalytic activity/Vol] 15 [iU]/d Normal 5 - 43 Int._Unit/L [facility] Bilirubin [Mass/Vol] 0.4 mg/dL Normal 0.0 - 1 .1 mg/dL [facility] Calcium [Mass/Vol] 9.2 mg/dL Normal 8.9 - 11. 1 mg/dL [facility] Chloride [Moles/Vol] 107 mmol/L Normal 101 - 1 11 mmol/L [facility] CO2 [Moles/Vol] 23 mmol/L Normal 21 - 31 mmol/L [facility] Creatinine [Mass/Vol] 0.4 mg/dL Low 0.5 - 1.3 mg/dL [facility] GFR/1.73 sq M.predicted among blacks MDRD (S/P/Bld) [Vol rate/Area] mL/min/1.73 m2 Normal >=59mL/min/1 .73 m2 [facility] Chem S GFR/1.73 sq M.predicted among non-blacks MDRD (S/P/Bld) [Vol rate/Area] mL/min/1.73 m2 Normal >=59mL/min/1 .73 m2 [facility] Chem S Globulin (S) [Mass/Vol] 3.2 g/dL Normal 1.4 - 4.0 gm/dL [facility] Glucose [Mass/Vol] 87 mg/dL Normal 55 - 199 mg/dL [facility] Potassium [Moles/Vol] 3.8 mmol/L Normal 3.5 - 5.3 mmol/L [facility] Protein [Mass/Vol] 7.5 g/dL Normal 6.0 - 7.8 gm/dL [facility] Sodium [Moles/Vol] 136 mmol/L Normal 135 - 145 mmol/L [facility] Urea nitrogen [Mass/Vol] 14 mg/dL Normal 5 - 21 mg/dL [facility] Urea nitrogen/Creatinine [Mass ratio] 35 mg/mg High 10 - 20 [facility] CMPon 02-13-2022 Albumin [Mass/Vol] 4.3 g/dL Normal 3.3-5.0 [facility] Comment on above: Performed By: #### 2 920233, 3400371, 86377189, 3259375, 87813400 ####[address] [place] [address] Albumin/Globulin (S) [Mass conc ratio] 1.3 Normal 1.1-2.2 [facility] Comment on above: Performed By: #### 2 107707, 9111739, 60888818, 2307157, 54421818 ####[facility] [address] [place] [address] ALP [Catalytic activity/Vol] 55 Int._Unit/L Normal 21-98 [facility] Comment on above: Performed By: #### 2 200684, 4877754, 99912325, 7099492, 18511500 ####[address] [address] ALT No additional P-5'-P [Catalytic activity/Vol] 12 Int._Unit/L Normal 6-46 [facility] Comment on above: Performed By: #### 2 000023, 2447803, 54043430, 3105622, 52984345 ####[address] [address] AST [Catalytic activity/Vol] 15 Int._Unit/L Normal 5-43 [facility] Comment on above: Performed By: #### 2 025444, 5626874, 05371646, 0418165, 95028381 ####[facility] [address] [place] [address] Bilirubin [Mass/Vol] 0.4 mg/dL Normal 0.0-1.1 [facility] Comment on above: Performed By: #### 2 828446, 2371927, 91574429, 3676733, 64286229 ####[facility] [address] [place] [address] Creatinine [Mass/Vol] 0.4 mg/dL Low 0.5-1.3 [facility] Comment on above: Performed By: #### 2 083775, 4572478, 56038552, 6866122, 58456914 ####[facility] [address] [place] [address] Globulin (S) [Mass/Vol] 3.2 g/dL Normal 1.4-4.0 [facility] Comment on above: Performed By: #### 2 207987, 3771803, 66979042, 4250506, 09414252 ####[facility] [address] [place] [address] Protein [Mass/Vol] 7.5 g/dL Normal 6.0-7.8 [facility] Comment on above: Performed By: #### 2 529967, 4323661, 03093268, 8164845, 68539434 ####[facility] [address] [place] [address] Urea nitrogen [Mass/Vol] 14 mg/dL Normal 5-21 [facility] Comment on above: Performed By: #### 2 592916, 9853125, 04497644, 2470077, 33490943 ####[facility] [address] [place] [address] Urea nitrogen/Creatinine [Mass ratio] 35 No Units High 10-20 [facility] Comment on above: Performed By: #### 2 904334, 5703124, 69257013, 9593187, 73074111 ####[facility] [address] [place] [address] Anion gap [Moles/Vol] 10 mmol/L Normal 6-16 [facility] Comment on above: Performed By: #### 2 187170, 0566086, 98924864, 4622960, 55665337 ####[facility] [address] [place] [address] Calcium [Mass/Vol] 9.2 mg/dL Normal 8.9-11.1 [facility] Comment on above: Performed By: #### 2 198812, 7433131, 16229142, 1015196, 27029788 ####[facility] [address] [place] [address] Chloride [Moles/Vol] 107 mmol/L Normal 101-111 [facility] Comment on above: Performed By: #### 2 848343, 3208056, 46393436, 0068417, 49845110 ####[facility] [address] [place] [address] CO2 [Moles/Vol] 23 mmol/L Normal 21-31 [facility] Comment on above: Performed By: #### 2 956220, 9573942, 90304539, 8761958, 62262843 ####[facility] [address] [place] [address] Glucose [Mass/Vol] 87 mg/dL Normal 55-199 [facility] Comment on above: Result Comment: If t his glucose result represents a fasting glucose, interpretation should refer to the following reference range: 55-99 mg/dL Performed By: #### 2 179818, 5970149, 62776011, 7615799, 97962838 ####[facility] [address] [place] [address] Potassium [Moles/Vol] 3.8 mmol/L Normal 3.5-5.3 [facility] Comment on above: Performed By: #### 2 182144, 7198050, 20274133, 4554179, 29135122 ####[facility] [address] [place] [address] Sodium [Moles/Vol] 136 mmol/L Normal 135-145 [facility] Comment on above: Performed By: #### 2 624010, 9253071, 13345494, 7756267, 80502993 ####[facility] [address] [place] [address] Consent for Treatmenton Consent for Treatment [id number] 20 [id number] #1.00CD:127 Normal [facility] Discharge Instructionson Discharge Instructions [id number]# 1.00CD:127 Normal [facility] ED Clinical Summaryon 2021 ED Clinical Summary [address] [address] ED Clinical Summary Person Information Name: MARIBEL VELEZ/[place] Age: 21 Years : 2000 Sex: Female Language: Surinamese PCP: CAITIE MARSHALL CNP Marital Status: Single [...] 02/13/2022 07:28:36 02/13/2022 07:28:36 ADDRESS: [address] [facility] [id number] PHYS DOC NOTES: Addendum by Kevin Santoro DO on February 13, 2022 07:22:06 EDT MEDICAL INFORMATION: Prescriptions Given: New Medications [id number], [address], [place] [id number], [phone] pramoxine topical (ProctoFoam 1% Foam) apply By rectum 2 times a day for 7 Days. Refills: 0. Medications to Continue with No Changes Other Medications ethinyl estradiol-norgestima te (Sprintec oral tablet) Ib By Mouth every day. ibuprofen (ibuprofen 600 mg Tab) 1 Tablets By Mouth every 6 hours as needed as needed for pain. PATIENT EDUCATION INFORMATION: Instructions: Rectal Bleeding, Qmgw-af-Gavj; Hemorrhoids, Wzbq-vc-Waki Follow up: With: Address: When: [facility], [address], [place] [address] [employer] (1) In 3 days 02/16/2022 With: Address: When: CAITIE MARSHALL In 3 days DIAGNOSIS: Acute hemorrhoid Normal [facility] ED Note-Physicianon 02-14-20 ED Note-Physician Basic Information [...] change or worsen. Diagnosis: Rectal bleeding Normal [facility] Comment on above: Result Comment: Bernie shannon [...] 02/10/2012 Document Revised: 05/13/2018 Document Reviewed: 07/26/2016 Elsevier Patient Education ? 2019 [employer] Hemorrhoids Hemorrhoids are swollen veins that may [...] times a day. General instructions ? Take gxco-tiq-mywsgzh and prescription medicines only (more content not included)... Normal [facility] ED Patient Summaryon 022 ED Patient Summary [address] [address] Patient Discharge Instructions Person Information Name: MARIBEL VEELZ Age: 21 Years Arrival Date: 02/13/2022 06:16:54 Discharge Diagnosis: Acute hemorrhoid Primary Care Physician: CAITIE MARSHALL CNP Provider Information Primary Provider: Ana Braxton DO Advanced Dress Draper:None The exam and treatment you received in the Emergency Department were for an urgent problem and are not intended as complete care. It is important that you follow up with a doctor, nurse practitioner, or physician?s power plant assistant for ongoing care. If your symptoms become worse or you do not improve as expected and you are unable to reach your usual health care provider, you should return to the Emergency Department. We are available 24 hours a day. MARIBEL VELEZ has been given the following list of patient education materials, prescriptions and follow-up instructions: Follow-up Instructions: With: Address: When: [facility], [address] [place] [address] [place] [address] Business (1) In 3 days 02/16/2022 With: Address: When: CAITIE MARSHALL In 3 days In the event that this physician does not participate in your insurance network, please consult with your insurance company to find a nearby participating provider. Patient Education Materials: Rectal Bleeding, Wkum-lz-Eixb; Hemorrhoids, Aekh-se-Igrb A MESSAGE TO ALL PATIENTS REGARDING OPIOIDS PRESCRIPTION OPIOIDS: WHAT YOU NEED TO KNOW Prescription opioids can be used to help relieve vbheshxk-ou-hcucgo pain and are often prescribed following a [...] care professi (more content not included)... Normal [facility] HEMATOLOGYOrdered By: SYSTEM SYSTEM on 02-13-2022 Basophils/100 WBC (Bld) 0.9 % Normal 0.0 - 2.0 % [facility] HemeAutoSS Basophils/Leukocytes Auto (Bld) [Pure # fraction] 0.1 E9/L Normal 0.0 - 0.2 E9/L [facility] HemeAutoSS Eosinophils/100 WBC (Bld) 0.6 % Normal 0.0 - 8.0 % [facility] HemeAutoSS Eosinophils/Leukocyte s Auto (Bld) [Pure # fraction] 0.0 E9/L Normal 0.0 - 0.5 E9/L [facility] HemeAutoSS Lymphocytes/100 WBC (Bld) 46.4 % Normal [...] MDRD (S/P/Bld) [Vol rate/Area] mL/min/{1.73_m2} Normal >=59 [facility] Comment on above: Order Comment: Order added by Discern Expert. Result Comment: eGFR is race adjusted. AA=. Performed By: #### 2 281688, 6538780, 23646835, 9929609, 31905975 ####[facility] [address] [place] [address] GFR/1.73 sq M.predicted among non-blacks MDRD (S/P/Bld) [Vol rate/Area] mL/min/{1.73_m2} Normal >=59 [facility] Comment on above: Order Comment: Order added by Discern Expert. Result Comment: Ballistics Expert Forensic linwood kidney disease could be indicated at eGFR's of less than 60 mL/min/1.73m2. Kidney failure is indicated at less than 15 mL/min/1.73m2. Performed By: #### 2 630015, 4683694, 59241001, 6163719, 08426968 ####[facility] [address] [place] [address] Coding Summary.on 02-06-2022 Coding Summary. [id number] Gh0bWw+PGhlYWQ+PE1FV RQaB03kfQOcbO1WA3hJK X2WPWYXPNXMUW8DEL4em SB7FRmzT8JmrjSk CdykwHIiKU76LQl7VKT4 nCskYEchrE2mdDVnU5p1 YgHcJX87cS70KUbeKHJn LiP7AaYdxrhasRXe N8crMlHpzXDgTvq+PHRh YmxlIHdpZHRoPScxMDAl GiZtaHykXO8uQo8wYRMq LWNvbGxhcHNlOiBj j0wgHACxYJqxPY6fhRgb C9GysKG5VBRcy2e6Tn49 dHI+MGOyDQS0fYlnWJlr k203CtZda1wjFDW8 rDNbHHdcXKX1Q12au7U0 MBYzWOBqJHT3sCC6dG3i oTpshasfL9TycHOgExR3 PKG5hSRjhT2bqVao mclhuY4jZxx+V23UWM5C DKZXRS6ZJhz2X3TlBmlt dHI+EC90YZFuHE34wDEh yFSsz5llgRw9EiTd RNMmHHE3bTnvQQrds8Ny LXAtN25lfERxa6F9COXh aJmusANpKbWkvJA9iG5e IWfqpzfiu9ngidlc Jxgve1yoyn83bE85E62s JJmmLLPrSHI7FAFlHMCe cLoomr1tqK3vIc4+IDxj a1bxr4ljjXu4YtYp AKWwcfXzqCteNED7q0Hl Bq44P4WztDbwd1JmPjv5 fl15qPKvj6U4uGH8FFug EFFxkA6mQRlsHdN0 VSCaJeFtxM26mYUeHAac Xo9qpPfdyIhiNX9cZMHp emypEDYavX6fEUBmrRPb hLbaWR8dHCRrgfmo p723UzGkPCO3ZNRseVXw A4FgbP0fCoMeSOQhXVZu N3KgtVGvBOtuC006HYwt NjP1JCTuflTeZ8Cw GIWtgGzzZwY4z3E9Xf1P y0SqzkqlSAG5GGmkXIM2 ZyK5CoXnAyL1Z7DcHcb2 UNMabZklVL6iZ7Gg HWViylwobburiCR1XWQm RYJwgH35uULeLSqaUp0s m1Y6p352KGDeDPQjqA91 Zi9rrJvxGSUvfONH hL9hnhzkn8plsotwYjFd YKEoBOf4HWn4NVKtnUej JhHgBCX9ZxX4YKO1gWOj uY3aqUpfsqxffV3d Oyc+Z66xoI0oMAG6NZF0 grwiHHJisaXcOR90JM92 A1DoAhbqwXXbjMX+PGRp qqCwhBauPZ6uPfFv t4avp5ZzQMgwZ9UvTWUl QUuxSho5REIoWYE5gSC9 nR6oSLDkFYien9H5vSE7 D1GxfxXhvp0kd4kp XPMgLIpzY96djAExn2R6 QASzjHU0ROMhhYxfAcZm hT16Uoj+NPDzkOuog1Vi Nxlkh0ldg1shtEc6 IjMwJSIgdmFsaWduPSJ0 i6QsPx91N04fCVpwQMOq SSHnIXVuAVTlbJrxtq5u wT1kDl7+PGNvbCB3 yXG4eF6bDSTbZcO0WBjz H345CbVpwXNiJqaek8gc k6iphVl3TsGvVJKivxXh gXqkRHI3f5YlPt13 Q95fOZkkSPFzWKYnUADb BTVjrYkgue2ocD6gMz4+ EG9iq6orfw54bU71iND+ FGRvCUD4pKxmUWmu HSKvbS4mPYutSeF0OMWz CmShiK50rYVrXAugKm4n kSrqhXcdMC2sOPBjwhgx k555UaAba0mfBBRa cYZtZLpbGJD9S87xq8V5 BYBeOLJiZJZ9vQT7vY9v bGlnbjogbGVmdDsgdmVy jUlcWClnUNxiC349 IHRvcDsnPlBhdGllbnQg JeRmHPr4C7NfQjy0YYXu jTqlDF0qfDUuCLpiHg9n iVmkoHnqXB0hMJJk zozxf392ZsUpy8rnJMOa pBQiSBudRSY5Z01hv8E5 TKNyTMSnCEZ0uFM3eG7i bGlnbjogbGVmdDsg iqWooHcvSRjfQLnhM569 IHRvcDsnPkJpcnRoIERh xAH7QF83FQ12hTSaj1Q6 bIJ0Q0PyAZZptbbf xomcbYA4PCBaZMIymH51 Jq5iiPaaBh0fYSAbGEE4 JJXdpYXyW2TdlI0pFpJh FMFoFGYwJ0BnpOGr MVucU448KTbnFxF3GAIf xoCzB4ZzNYJgpIwmVlE9 m8Q9Lw4IS3A8AQ53NR28 pEXbx9R9vHE8C5Jx NMPsdhphnibmbKW6EIPz FBNgyB01Th7qoYvdMk9d RZGrMMO8JPDomDPaP3Yw kM0sNoTeIAVcFOFg I7EcjIOrGQgpR032STzd ZiK1WXNboeYtO9TdEGCu zEqpIhO2w8P3Lb9KJDj7 DU27ZL10lPKnz4Y2 xFS6I0VaTHOrsspalcjs sYM4ZSEaLNQnoI90Fi6i xDusOu6eGRKtXAC8OBHp mWIfZ8VahI0rLcBi YEKeJFLvE9OizZJsODiw U920HGbdTnB6NTAnjlIf R6MjLPBfiPkdAsP6b4J2 Lk5UTXAbFB10PGJ0 uQE7QS08ZL17X9JjVeon dGFibGU+PHRhYmxlIHdp ZHRoPScxMDAlJyBzdHls XP8wKn3zTSClVNPe nQiqyYTlTlWmt2sgXTEo YKlzXI1ahZcyK0WexQU9 MOEaf9v8Ad23U05kV2Mx dXA+HVVqdWG7gCP5 yV0yBdAuFgQ0UOieH108 YlZvhEChCeequ8quh1jl oYw2OhV1VMMkpxDrySre BVM9m6SfJj13B06z IHdpZHRoPSIxNSUiIHZh jDglcs9xyE8lSy6+PGNv oJE6vQF1jB0iBkOjDnE6 MAowY899JfIveGCy Lkqwy1qss1szhEq9VjOr XBIwbrGgtRxiABY9s0Dr Vh73N0GfrNkld6KgVad6 zg02wDQgn2C4vBX2 O5QvPNAmoomchHRvyJis XE7hWQGksqkoAUZuzF9m WWYaH8q3OgMmFkU7AQdf Q7RyplY4SPLlhCWe VBagUTM7P56bg1Q7TJHo QVYtPAY8pIT7fZ2fjVuv bjogbGVmdDsgdmVydGlj MFfmCBlkU516HRXl wTalKXGmeK6wDUVzrQQy vKneHQ8eCYAkfvsbBzRW BNjYCPiyH1XNRSeEWneE MD52DB85yRMpv0V5 tAO1L3HiFFLzyebhmybw tCN8ZFXzVSTxuT15uTZz OTxoZv0br7W7g684ZEBc UUZbzT66Vq9zsLnq CDEzrFREfX4jjkxyg4ec iacmGbPhPNCjOAb4WDe4 WKXwzQvvGlFhZVU4BdH2 GGT1pYGvnS3rwGdg cmybpI6yGxg+MDIvMTkv MjAwMzwvdGQ+PHRkIHN0 dCodTHjpWMCriL9mQYXq F4c2PaPhNlS1UGrr Z5WpQUKqkvotQs64tA3p XbDqEmZ0TClbV0VoddQ4 AEVsgQGgJTurNDW4P58f h7P6TPNlQFKwUXT8 lRA5wR9geRapxqixvLRz dDsgdmVydGljYWwtYWxp A462IXZpvEckLhJ9MCcd PLLaKQ71VK38lFBy b1V2nFW1A3LqLEPixutq wmcucEP0IJBzAACxiY54 aADdYPngTc5ey0H1j287 DPHtIKRdlD62Vo9k eJtrSPFmtGVJzE1zmpth n7tjsvsoDzHuJJNwTGw0 MRl0ZJQriFpeBwSiZJD3 IuY7OWM7oLWinN8s zPlousnbbK7dJnm+RmVt IPfwSU73JT56yYYtd4D0 qCH1Y9WvIEZfzartsrmn iUX2AMKmXYUvnN55 uTPwUIpjAm8pd7J4v182 GGYvOBSryY17Fz4ghEwt FIBwzCQEiZ5wkmrfr3bw cjogIzAwMDAwMDt0 RTg3SHPnzJqeNtFaAVK8 CzH6AEX0kODbeF9guIwg djvvkG1eXgy+Z7E1cKL4 aWVudDwvdGQ+PC90 sr60P0AbZdlqCbe0TECy SOK9dXU0tQ8qEUHrRMcm r8V1rWC7W8FpojXpjq3o t5spMWEqFQtuF03l lVWom4P0UIZcqCL5XZOx kOmyCnKqgV73Xbp+PGNv vYvro9TvHewxl4ohp5zj bWg8WjXsNCEbucOt pNbrCES7s4YoFr38E40m IHdpZHRoPSIzMCUiIHZh bTvzbt2qiH3kYd2+PGNv iSA1nXV8qL9lCrGv AxS8BVzlA472WaMzmNVg Lsslq7tgq9wncTj3OdCi MMDamxUmbTswTFI5i5Za Wi17E8MxaAcwd0Fi Nkd7xn84eOBdu2V9jIE2 Y4KzVJWywxzqqEBnpVkc OU9rSIKecatuFISwiV4d IVXxO4x2KyUlWiB5 JCmhL9ViqhO2RJBinHIj OVXpzPNFsU8vrnrvn8jc cwybWiAhAIEeGUr3OMv6 LWFsaWduOiBsZWZ0 QyA6PYN8aFNspP9vwEif zecldS6pPkv+KIc3x5eo bDBpTQ9xvSX2AP42GL91 nVIyt4Z4kPY5F2Jy GMQtixehikvmuTC8YGVb JORjsA99Dy3aiIdiKn4t CCAuNMV9LELhyJEgT5Tn sX6bDrKbTTVmOMXg K7KcwYYrLKogA186TFrz AuJ6ENXqurUsY6SjKPUq eMlcSvA9d8S3Ji8EGF89 DI85PK71iEZqw5L2 eND0M9MwRMYkzlvuyxdf yLG2YGOfGXUjjC29Pr5u hXwkTu7sQXWqLSE1NPGi sAKeM3IavG5bIjAh KGIiETJrO7UgsYZeVNpc E900UMzsNvB5PMCevhGa Q9EwIDJffItiVaX5a1U7 Ek5GAf12QD43KK84 fSIfh0E4cYM7Z0DtBCTb ssieghusqKB1HQZzEXUu bT38Qa3tbQueQb1lYPYt MHA8YXHdrEPwE3Rp bX3hBxQiYZSjSLWiQ8Da uKSaGBayZ718CYshWaG1 GDJulwAvT9VtTEUzbDgj MwZ5b2F4Al6WXMwh dpq8N9PeMzlafGJ+PC90 JROiVJ25dHQapVTvp1hf eBh5PxDjSDAzWON4zVmp KZnsi4FrJODkY78r bGFw (more content not included)... Normal [facility] Consent for Treatmenton 01-13 Consent for Treatment [id number] 20 [id number] [id number] [facility] Physician Orderon 02-03-2022 Physician Order [id number] #1.00CD:127 [facility] XR Shoulder Complete Righton 02-03-2022 XR [...] Reis M.D. Transcribed by: CHRIS Technologist: JULITO [facility] CBC AUTO DIFFon 01-15-2022 BASO # 0.0 103/ul Normal 0.0-0.1 [facility] Comment on above: Performed By: #### C BC #### [facility] [address] [address] [address] Venancio Soriano Basophils/100 WBC (Bld) 0.6 % Normal 0.2-2.0 [facility] Comment on above: Performed By: #### C BC #### [facility] [address] [place] [address] Dr. Venancio Soriano EO # 0.1 103/ul Normal 0.0-0.7 [facility] Comment on above: Performed By: #### C BC #### [facility] [address] [place] [address] Dr. Venancio Soriano Eosinophils/100 WBC (Bld) 1.3 % Normal 0.9-7.0 [facility] Comment on above: Performed By: #### C BC #### [facility] [address] [place] [address] Dr. Venancio Soriano Erythrocyte distribution width (RBC) [Ratio] 12.8 % Normal 11.0-15.0 [facility] Comment on above: Performed By: #### C BC #### [facility] [address] [place] [address] Dr. Venancio Soriano Hematocrit (Bld) [Volume fraction] 36.5 % Normal 36.0-48.0 [facility] Comment on above: Performed By: #### C BC #### [facility] [address] [place] [address] Dr. Venancio Soriano Hemoglobin (Bld) [Mass/Vol] 12.2 g/dL Normal 12.0-16.0 [facility] Comment on above: Performed By: #### C BC #### [facility] [address] [place] [address] Dr. Venancio Soriano IG # 0.01 10e3/ul Normal 0.00-0.03 [facility] Comment on above: Performed By: #### C BC #### [facility] [address] [place] [address] Dr. Venancio Soriano IG % 0.2 % Normal 0.0-0.5 [facility] Comment on above: Performed By: #### C BC #### [facility] [address] [place] [address] Dr. Venancio Soriano LYMPH # 2.7 103/ul Normal 1.2-3.8 [facility] Comment on above: Performed By: #### C BC #### [facility] [address] [place] [address] Dr. Venancio Soriano Lymphocytes/100 WBC (Bld) 42.9 % Normal 20.5-60.0 [facility] Comment on above: Performed By: #### C BC #### [facility] [address] [place] [address] Dr. Venancio Soriano MANUAL DIFF REQ NO Normal [facility] Comment on above: Performed By: #### C BC #### [facility] [address] [place] [address] Dr. Venancio Soriano MCH (RBC) [Entitic mass] 29.4 pg Normal 26.7-34.0 [facility] Comment on above: Performed By: #### C BC #### [facility] [address] [place] [address] Dr. Venancio Soriano MCHC (RBC) [Mass/Vol] 33.4 g/dL Normal 29.9-35.2 [facility] Comment on above: Performed By: #### C BC #### [facility] [address] [place] [address] Dr. Venancio Soriano MCV (RBC) [Entitic vol] 88.0 fL Normal 81.0-99.0 [facility] Comment on above: Performed By: #### C BC #### [facility] [address] [place] [address] Dr. Venancio Soriano MONO # 0.5 103/ul Normal 0.3-0.8 [facility] Comment on above: Performed By: #### C BC #### [facility] [address] [place] [address] Dr. Venancio Soriano Monocytes/100 WBC (Bld) 7.2 % Normal 1.7-12.0 [facility] Comment on above: Performed By: #### C BC #### [facility] [address] [place] [address] Dr. Venancio Sorinao NEUT # 3.0 103/ul Normal 1.4-6.5 [facility] Comment on above: Performed By: #### C BC #### [facility] [address] [place] [address] Dr. Venancio Soriano Neutrophils/100 WBC (Bld) 47.8 % Normal 43.0-75.0 [facility] Comment on above: Performed By: #### C BC #### [facility] [address] [place] [address] Dr. Venancio Soriano Platelet mean volume (Bld) [Entitic vol] 9.5 fL Normal 9.5-13.5 [facility] Comment on above: Performed By: #### C BC #### [facility] [address] [place] [address] Dr. Venancio Soriano PLT 323 103/ul Normal 150-450 [facility] Comment on above: Performed By: #### C BC #### [facility] [address] [place] [address] Dr. Venancio Soriano RBC 4.15 106/ul Critically low 4.20-5.40 [facility] Comment on above: Performed By: #### C BC #### [facility] [address] [place] [address] Dr. Venancio Soriano WBC 6.2 103/ul Normal 4.0-11.0 [facility] Comment on above: Performed By: #### C BC #### [facility] [address] [place] [address] Dr. Venancio Soriano PROF 14(COMP METB)on 022 Albumin [Mass/Vol] 4.0 g/dL Normal 3.4-5.0 [facility] Comment on above: Performed By: #### C MP #### [facility] [address] [place] [address] Dr. Venancio Soriano Albumin/Globulin [Mass ratio] 1.2 {ratio} Normal [facility] Comment on above: Performed By: #### C MP #### [facility] [address] [address] [address] Venancio Soriano ALP [Catalytic activity/Vol] 67 U/L Normal 46-116 [facility] Comment on above: Performed By: #### C MP #### [facility] [address] [place] [address] Dr. Venancio Soriano ALT [Catalytic activity/Vol] 16 U/L Normal 14-59 [facility] Comment on above: Performed By: #### C MP #### [facility] [address] [place] [address] Dr. Venancio Soriano Anion gap [Moles/Vol] 11.8 mmol/L Normal [facility] Comment on above: Performed By: #### C MP #### [facility] [address] [address] [address] Venancio Soriano AST [Catalytic activity/Vol] 9 U/L Critically low 15-37 [facility] Comment on above: Performed By: #### C MP #### [facility] [address] [place] [address] Dr. Venancio Soriano Bilirubin [Mass/Vol] 0.3 mg/dL Normal 0.2-1.0 [facility] Comment on above: Performed By: #### C MP #### [facility] [address] [place] [address] Dr. Venancio Soriano Calcium [Mass/Vol] 8.6 mg/dL Normal 8.5-10.1 [facility] Comment on above: Performed By: #### C MP #### [facility] [address] [place] [address] Dr. Venancio Soriano Chloride [Moles/Vol] 106 mmol/L Normal 98-107 [facility] Comment on above: Performed By: #### C MP #### [facility] [address] [address] [address] Venancio Soriano CO2 [Moles/Vol] 24.9 mmol/L Normal 21.0-32.0 [facility] Comment on above: Performed By: #### C MP #### [facility] [address] [address] [address] Venancio Soriano Creatinine [Mass/Vol] 0.58 mg/dL Normal 0.55-1.02 [facility] Comment on above: Performed By: #### C MP #### [facility] [address] [address] [address] Venancio Soriano EGFR-AF UGANDAN >60 Normal >=60 [facility] Comment on above: Performed By: #### C MP #### [facility] [address] [place] [address] Dr. Venancio Soriano EGFR-NON AF UGANDAN >60 Normal >=60 [facility] Comment on above: Performed By: #### C MP #### [facility] [address] [address] [address] Venancio Soriano Globulin (S) [Mass/Vol] 3.3 g/dL Normal [facility] Comment on above: Performed By: #### C MP #### [facility] [address] [address] [address] Venancio Soriano Glucose [Mass/Vol] 94 mg/dL Normal 74-106 [facility] Comment on above: Performed By: #### C MP #### [facility] [address] [address] [address] Venancio Soriano Potassium [Moles/Vol] 3.7 mmol/L Normal 3.5-5.1 [facility] Comment on above: Performed By: #### C MP #### [facility] [address] [address] [address] Venancio Soriano Protein [Mass/Vol] 7.3 g/dL Normal 6.4-8.2 [facility] Comment on above: Performed By: #### C MP #### [facility] [address] [address] [address] Venancio Soriano Sodium [Moles/Vol] 139 mmol/L Normal 136-145 [facility] Comment on above: Performed By: #### C MP #### [facility] [address] [address] [address] Venancio Soriano Urea nitrogen [Mass/Vol] 9.0 mg/dL Normal 6.4-19.3 [facility] Comment on above: Performed By: #### C MP #### [facility] [address] [address] [address] Venancio Soriano Urea nitrogen/Creatinine [Mass ratio] 15.5 mg/mg Normal [facility] Comment on above: Performed By: #### C MP #### [facility] [address] [address] [address] Venancio Soriano Discharge Instructionson Discharge Instructions [id number] 3#1.00CD:127 Normal [facility] ED Note-Physicianon 10-23-19 ED Note-Physician Basic Information [...] Orders: Influenza A&B Ag Rapid COVID Antigen ([facility]) Disposition Plan Patient Discharge Condition Stable Discharge Disposition Home Discharge Prescription List Prescriptions No active prescription medications Follow-up With When Contact Information Michelle Mata In 3 days 10/22/2021 EDT Additional Instructions: Patient Education Viral Respiratory Infection, Fadb-Vo-Uzdt Attestation This visit was performed by both [...] Diagnostic Results No qualifying data available. Normal [facility] Comment on above: Result Comment: Elec tronically Signed By: Yasemin RUTHERFORD, Cherry E.\.br\Date and Time Signed: 10/19/21 17:19 EDT\.br\Electronically Co-Signed By: Miko Yepez MD\.br\Date and Time Co-Signed: 10/22/21 10:35 EDT Coding Summary.on 10-20-2021 Coding Summary. CD:[id number] Gh0bWw+PGhlYWQ+PE1FV EUxR92qwZYpjG6RJ9cFX J1TSPGXEIIYSC4RHW8ti DJ6VLjfD6JyckHw ClpvtPXpFF37XRc3BHM8 tCatWZiowN5mqWMpD2m8 MlTkBL74dA10CLsyWKLv UoA6PpEflmgdrKQd Z8qaIcEeqIFjDvp+PHRh YmxlIHdpZHRoPScxMDAl AjPrnLbkUI3rJe7vRBWp LWNvbGxhcHNlOiBj m6rcYFTaNLoeOE0lrLtk D4FboFQ2QRUzj7f9An27 dHI+SGVqZPK6oHrpAUki x407RpFlp3sbCPQ6 vQGaAVhtKIT8G79cl5N8 NATmTXZaJSQ2hRR6mS1j nTwggxwmP1WnmNUpGuR0 TMU1dHOklW4fgHrt glmonE7rRre+N53GSL8X NEQSVQ6YNto7M3FsLubz dHI+KE10AIUyOK60uFZo sQHtt7algOh0MdWv RTDaKKX6tKctQNrbq2Pr AAMqE06leOBei5A7CAXu zKzisJRkYoRfhFM6jI3w VZpyfnaro1dnaxch Lnaly4hbey47kX01Q42f TFmdSHByCWJ3QNOhHHBj oIadxg0tvS3dAo7+IDxj i7njz1nfyOd2TiUh AVIvseAzdZbxECZ0e7Vn Sa22T1MgePtjr5BfWci1 hg98bSSyo3T5nUU7QRtm RHBgzJ5cIStdYbQ3 TQJjXoBnzM18tQBiIKil Le2jcXmrzPvdYJ3yFGDz cxgtSUPzvZ7dAQMncGDt iVrkHZ7eKMHdjwgg t844LiCmELB7ZWLegSMz H2YgmC0eCzMlEPAiTSPt X1MjpQErOAvzZ253WKcv DeD3FQKtxfYwX1Gn ONOsrHmlUsA2z1Y2Ym3B h4RshmvrEFQ9FGqyBUN5 AoB5CkXnUtF2P5YuYye2 WDQprJukGT5jR3Yf TCJyolccironaRG0HDNr XOTrkL99eYZoXAivKy8r x3X1l988YQApSBDspA85 Ss2zvYtgHXAtsBEP yF0lltxzl4dqhzbwGtEc WTPsCGe7KUn1BGEslDdx LvDtTWF9NzL1NPP2iBBo rM6jkKymfkuiaH9i Oyc+R82piN8lCTL7LTX4 qqoiFMHzekUmXE46RY36 J0WqOlskuNFawEN+PGRp ezXptElfYG0qQvAh s4wkv9TwTBijO3SnGLWa GRytDqc9VDXgSZF5wWK5 xN6tTMHkKYhjm4J9qFM2 H5HpuyYtxj7wp9gb QVZkKIysE74svOEoy8B6 CBLrkMO4WFXjrXhdPmZh tX10Oew+VJAacEzac8Mt Ovetk7iye3eaaRu5 IjMwJSIgdmFsaWduPSJ0 k0ItYq99X56rMYetUCOt BQFzFCOoRMXduOngtq6v tI5dSd6+PGNvbCB3 uDS6fG1kKHLbKoP7EPch O987LsXgxIQkGgeud7uu z9vzrPu2CqVxYIRadcTq sNcmJBP3r4QbNl79 P76bMSckQBNhFRAbCQXd UPYggRxwio9dfX8yWk8+ TS2sx4ehwv81dU23tXN+ LGNqHUI3mLvwSPab TVXckN8mYAjxUnD4EMSv MpAlsO70nVMuLPeqYv8j bGsglKqiHR0tTPFwhuuy c512IsMut8veGQVc dYTrQCacNWS7U28ry7U6 LIEuJQTtXTE6oBH1jP4y bGlnbjogbGVmdDsgdmVy hUkkCZmkRWplU319 IHRvcDsnPlBhdGllbnQg ImXuVUl6Z3UeYcq2ZHBq rAutTJ4ngPHeZLebYx7n lVzawZzqAR8eXNAb epkmi268IuLgo3jfMMOc oUQqHLvxDHI2F23gw7O5 HXFbTKLuBIX3vJE7dX9k bGlnbjogbGVmdDsg kdJuqUiqZLoxURwlH749 IHRvcDsnPkJpcnRoIERh jYT3HX43OX58aADbg4B6 dDH4E6IaVTValbou zthzlUU4VGCgWKLngI89 Et0wxCtvWf8wSHGyATJ0 JBJquPKdJ6GnzV6kGbSo HCNhKPRrA6XfoYYr LMfqB380DOnwNjJ7FSSt wlFsS9ByKMBmhKivNbL2 j4Q7Fe2CP5M2MF95MA90 zFBfr5U1pCQ0D3Kp RCZgpzwqohswsCB0PBBj JIGwtZ96Rs8nbVzoSg4n HDPjJTY2PUYhuFCiL1Sj kH8qIoOfRKMfMCGq K1UiaAGsSApuM445MDmd LzE1ZIDdteNkM0QgVMIh lZciThE0i1H7Ju3MMPj2 AC40KU08mXBuu3D2 fKT1Z0JnJZDnovscbtun lSX5DSOiZHQqyH56Dr2h cTvnKw8bSETbRDJ6FVSh nBAvR5IimW0zEyTf AQEnXBDiB9FddDEtLRew C012CEabVdB1GVVpszJt S9QkKGXlfHafLlV9a1U4 Ah5ANYQxKR80ZHK1 aRT6LH86IW88M0MmOdhm dGFibGU+PHRhYmxlIHdp ZHRoPScxMDAlJyBzdHls MZ3zZd8bTTUvERBh oZpfvWSfFnChw2djMSZl MHlnSE3ypZkzO2JxuIA1 QWQzk1h6Ou34C52sK4Iu dXA+RSRpwJX0iON1 yA7hWxEeAnM9GNobZ367 MgKbcLBlIgbvk1jsr0my yBw8HmZ7QCKvdmZneRul KAU0u4AhKb71D97l IHdpZHRoPSIxNSUiIHZh kAqqme2ycG8iYb8+PGNv aSE6rJI4iZ5jXiInXlY1 ZQmfI579BpQhhJAn Ulktt7urt1cxeTt7TcMn GISswuXpdOtqUJY9d0Rs Bh62A0UmtCxoe2ZoFbj3 ku98pNHtt1Z5kDA5 X8YzXIThjxousUXdhTzw QK5sDFCzndwwLKRadB6t AOEsL2g8DoWmJjI3PXnp C8YjgzQ0FAHihVNx VBvyCDB0Z68nk5C5VHWe VNAnTML7uGJ3nR0puApi bjogbGVmdDsgdmVydGlj LQwkBKifX528FVOs jEcuHAYkoG9kUTWrdPDr bCdsTO7oGQLgsshtHvPQ SGaTCKcnW9YEVCkLEafX DK71ZF65gKSch7E4 pOE3V8ZxMIZlxlumvmmi nBQ0YSBsBLWnjA57aDSb TYauBz5pf8C5n974FWIm EZClyH00In0anWbi OYYauDMXkV2wxnfxb6fl cfyrJnXfEGIiKBm0PPk9 JHHhiRgsEeZyBSN9VjW8 WJU1oJIrhL3nbXos wdnxmK1oZqs+MDIvMTkv MjAwMzwvdGQ+PHRkIHN0 zSviKIzoNWNrcD2lQDSi H3e0NaGcKkZ1DYkg Y3CyKPZqdlkvKd46kC2a HrIjIzA2YIbmB1PbdoC5 SQZooBLvZDqqHER0H10i r0F2PPJsZIZrFJR3 gFD5dF7pjGcqeskgaTCg dDsgdmVydGljYWwtYWxp F886ACBxbQvcSwW9HStn IFFbLL23JS51eTMq c3J0uXV7P6QiZPVsryej ybeqtIF0JQZjPDPjcJ29 dCEaSGlwCi1ig7X6v109 VFStKIKhvW88Xj0q wSylFAVpdGBFnG0elfjx q8tfgayiMvWnRQHwXSc6 PVm5MEHlaQcsTgKrMFI9 LfM3VIA3zQNlqP1b cIgfoeywsY6sPmi+RmVt OKtiCM95MI35hFNpz7K1 aGR7W7DlBYDkdmsylfbp bCU7EKMjROCtmZ29 zNMvMNbiPr5pf2M3w749 VEEyVOKkuP63Rn0xrIcv QNFgySELaU4nvcmaj8tk cjogIzAwMDAwMDt0 RDc9BTPfeZelOtNsMFM3 MzF0ITI4hFAeoC0ysKib cpnkwU7rQsg+OZ2oggpd cgT0GY80SF75Q3Xi PjwvdGFibGU+PHRhYmxl IHdpZHRoPScxMDAlJyBz rOrlYJ2aHz6cLSKlWCYe gJyumMFyXmKmc0xs NTTqUQszOJ3kyWobJ0Fq sHT4OIZsb5b9Vc40H61p X1BemVE+QSOjvJS9bBJ5 fM3fXdTkUiQ0LEij L047FvNfxGVgBcngp4yi w3hggAf7GcTfBGQssbYb kLwsQNG2s7OuTk61N67c IHdpZHRoPSIyMCUi CDMxzXiodi5xkG6rWr2+ MJDreST6tSD6qG0xQyPo EcG4GEsaL707KhVypYUs XhuaC01yY8PvkTU+ WLPtXvo5KMAcnPxsLF8q xHIxBOzqYc6lJGG0DaCz UxVnBQfkV7AbTJIqtobm ytabhNR5EKDgQNWh xH28On2yhLxyXw7oZBCr PUI8VIVldZNoO3ZloD0y ZgCyZDDxXWKcN8ZxaROd ZGeqN748TYbbOcV9 HUQevtXkO9GmRYXtbBso PoF7e9V5Qk0VvTnrlEMy NS7rUrZgCUn5O8WfPax1 JTXqoAksEQ6adIBd KRsoFg9qlNvmtIbgLQ7j XXYwwlgdh021PuXhd6js GBGxrYNgMRslAVW3P73q w5S0VWOmYIHmBCB3 rVO1zL0cuUiltugjjFSn dDsgdmVydGljYWwtYWxp P219KRKxrCrqVuLOZgp7 G7AcMcs5DERquSda JF0ceYKrLEizGl7dvQjm vXgvRK4sLCKejwtij823 EdUxq5jeUNYltQMnCDuv ZAN7Z33zo4L1CJWz OSJoWWH6uGS0xT0qiBzp bjogbGVmdDsgdmVydGlj YWclPYfaU008EPRsdHmv Mc0JNip7Q1SaTkc5 LQOpfSccTF1fpNWdJEvp Qz7wdBuuyBakRU6pLAEq nzszn271XvVat5jdOXJl hKOpIVkcHLO8O51g o5H5QTRoEKGmYDS5dSQ4 mX8piKuwxbkahWNgqCbr xxIpdKogXXxyCLgyN560 IHRvcDsnPlBheWVy OjwvdGQ+VX03og26T5Ok WmzvGyz4CALaQDB0kKQ7 dY3tQNXtVQicc3F3pYZ1 T9OxgqXfzp8xf8df YXBz (more content not included)... Normal [facility] Consent for Treatmenton Consent for Treatment [id number] #1.00CD:127 Normal [facility] ED Clinical Summaryon 2021 ED Clinical Summary [place] [id number] ED Clinical Summary Person Information Name: MARIBEL VELEZ/[facility] Age: 21 Years : 2000 Sex: Female Language: Surinamese PCP: JOSE G VENCES, JOE Joseph Marital Status: Single Visit Id: Visit Reason: [...] 10/19/2021 17:27:21 10/19/2021 17:27:21 10/19/2021 17:27:21 AD[address]ESS: [address] [id number] [facility] DOC NOTES: MEDICAL INFORMATION: Prescriptions Given: Medications to Continue with No Changes Other Medications ethinyl estradiol-norgestima te (Sprintec oral tablet) Ib By Mouth every day. ibuprofen (ibuprofen 600 mg Tab) 1 Tablets By Mouth every 6 hours as needed as needed for pain. PATIENT EDUCATION INFORMATION: Instructions: Viral Respiratory Infection, Drqq-Wk-Fycr Follow up: With: Address: When: Michelle Mata In 3 days 10/22/2021 DIAGNOSIS: 1:Viral respiratory illness; Other viral agents as the cause of diseases classified elsewhere Normal [facility] ED Patient Education Noteon 10-19-2021 ED Patient [...] home: Managing pain and congestion ? Take kijv-goh-erskgmj and prescription medicines only as told by [...] and water are not available, use hand senior talent management consultant. ? Avoid contact with people who are [...] 05/13/2009 Document Revised: 06/08/2019 Document Reviewed: 07/11/2018 [employer] Patient Education ? 2019 [email or web address]. Normal [facility] ED Patient Summaryon 022 ED Patient Summary [place] [id number] Patient Discharge Instructions Person Information Name: MARIBEL VELEZ Age: 21 Years Arrival Date: 10/19/2021 17:05:16 Discharge Diagnosis: 1:Viral respiratory illness; Other viral agents as the cause of diseases classified elsewhere Primary Care Physician: JOSE G VENCES, JOE Joseph Provider Information Primary Provider: Advanced Dress Draper:None The exam and treatment you received in the Emergency Department were for an urgent problem and are not intended as complete care. It is important that you follow up with a doctor, nurse practitioner, or physician?s power plant assistant for ongoing care. If your symptoms [...] provider. Patient Education Materials: Viral Respiratory Infection, Dnnb-Mb-Zojq A MESSAGE TO ALL PATIENTS REGARDING OPIOIDS PRESCRIPTION OPIOIDS: WHAT YOU NEED TO KNOW Prescription opioids can be used to help relieve hbrjzcha-pk-byhjay pain and are often prescribed following a [...] be struggling with addiction, tell your health director of medicare and ask for guidance or call [facility]?S National Helpline at [phone]-BGOP. [place] Source: [facility] (more content not included)... Normal [facility] Influenza A&B Agon Influenzae A Ag Negative Normal Negative [facility] Comment on above: Performed By: #### 1 [id number] ####[facility] [id number] [place] [address] Influenzae B Ag Negative Normal Negative [facility] Comment on above: Result Comment: Test sensitivity and specificity vary for age group, specimen type, antigen types, and prevalence of disease. Test results must be evaluated in conjunction with other clinical data available to the physician. Individuals who received nasally administered Influenza A vaccine may have positive test results up to 3 days after vaccination. Performed By: #### 1 [id number] ####[facility] [id number] [place] [address] MICRO OTHER TESTSOrdered By: Mya Reza on 10-19-2021 Influenzae A Ag Negative (10/19/21 5:05 PM) Normal Negative [facility] Man Sero Influenzae B Ag Negative (10/19/21 5:05 PM) Normal Negative [facility] Man Sero Rapid COV Int NEG Ctl Pass (10/19/21 5:05 PM) Normal [facility] Man Sero Rapid COV Int POS Ctl Pass (10/19/21 5:05 PM) Normal [facility] Man Sero SARS-CoV+SARS-CoV-2 (COVID-19) Ag IA.rapid Ql (Resp) Not Detected (10/19/21 5:05 PM) Normal Not Detected [facility] Man Sero Rapid COVID Antigen ([facility])on 10-19-2021 Rapid COV Int NEG Ctl Pass Normal [facility] Comment on above: Performed By: #### 2 [id number] ####[facility] [id number] [place] [address] Rapid COV Int POS Ctl Pass Normal [facility] Comment on above: Performed By: #### 2 [id number] ####[place] [id number] [place] [id number] SARS-CoV+SARS-CoV-2 (COVID-19) Ag IA.rapid Ql (Resp) Not detected Normal Not Detected [facility] Comment on above: Result Comment: The [employer]? System for Rapid Detection of SARS-CoV-2 is [...] or revoked sooner. Performed By: #### 2 [id number] ####[place] [address] ADMITTED TO INTENSIVE CARE UNIT FOR CONDITION OF INTEREST:FIND:PT: NO Normal [facility] Comment on above: Performed By: #### 2 [id number] ####[place] [address] EMPLOYED IN A HEALTHCARE SETTING:FIND:PT: NO Normal [facility] Comment on above: Performed By: #### 2 [id number] ####[place] [address] FIRST TEST FOR CONDITION OF INTEREST:FIND:PT: Unknown Normal [facility] Comment on above: Performed By: #### 2 [id number] ####[place] [address] HAS SYMPTOMS RELATED TO CONDITION OF INTEREST:FIND:PT: YES Normal [facility] Comment on above: Performed By: #### 2 [id number] ####[place] [address] HOSPITALIZED FOR CONDITION OF INTEREST:FIND:PT: NO Normal [facility] Comment on above: Performed By: #### 2 [id number] ####[place] [id number] STATUS:FIND:PT: NO Normal [facility] Comment on above: Performed By: #### 2 [id number] ####[place] [address] RESIDES IN A CONGREGATE CARE SETTING:FIND:PT: NO Normal [facility] Comment on above: Performed By: #### 2 [id number] ####[facility] [id number] [address] US SINGLE QUAD RT UPPERon US SINGLE [...] by: SUGAR CAMARENA Date: 2021-09-19 11:51 Normal [facility] 08-05-2021 [place] [address] Nuclear Medicine Report Signed Patient: Maribel Velez MR#: [id number] : 2000 Acct:[id number] Age/Sex: 21 / F ADM Date: 08/05/21 Loc: CT Room: Type: [facility] Attending Dr: Amy Tang DO Ordering Provider: Amy Tang Jr, DO Date of Service: 08/05/21 CT/CT Meckel's: Blood in stool;Abdominal pain Copies to: DO Joe Rodriguez Jr, MD Ward, Jeffrey S DO Nuclear medicine Meckel's scan TECHNIQUE: 12.0 mCi technetium 99m labeled sodium pertechnetate administered intravenously. Sequential planar imaging of the abdomen performed. HISTORY: Upper abdominal pain. Cramping. Blood clots in stool. No abnormal uptake is seen to suggest active Meckel's diverticulum. NM/NM Meckel's IMPRESSION: No findings to suggest active Meckel's diverticulum. Impression dictated by: Naseem Cevallos M.D.08/05/2021 4:16 PM Dictation Location: [facility]- Transcribed By: [facility] 08/05/211615 Dictated By: Naseem Cevallos DO 08/05/211610 Signed By: 08/05/211615 Normal [facility] HCG,Urineon 07-29-2021 Beta HCG ( test) Ql (U) Negative Normal [facility] Comment on above: Result Comment: PERF ORMED BY: [place] [address] LIGHT SERVICER EDDIE CORTÉS M.D. Performed By: #### U HCG #### [address] 07-29-2021 L Specimen: [id number] Received: 07/29/21 Status: AMMY Valdes Num: [id number] Spec Type: Surgical Subm Dr: Amy Tang Jr, Tissues: A Colon Biopsy (RANDOM BX) Procedures: HE Stain/2, Gross/Micro L4 Patient Age/Sex Location Account Attending Physician Maribel Velez 20/F [id number] Amy Tang Jr, DO SPEC NUM: [id number] RECD: 07/29/21 STATUS: AMMY VALDES NUM: [id number] DIMITRI: 07/29/[address] [facility] [address]: Amy Tang Jr, DO ENTERED: 07/29/[address]: ELENA TYPE: Surgical DEPT: S ORDERED: [...] microscopic findings support the above pathologic diagnosis. [id number] Specimen: [id number] Received: 07/29/21 Status: AMMY Valdes Num: [id number] Spec Type: Surgical Subm Dr: Amy Tang Jr, DO Tissues: A Colon Biopsy (RANDOM BX) Procedures: HE Stain/2, Gross/Micro L4 Patient: Maribel Velez [id number] (Continued) Signed (signature on file) Eddie Cortés MD 07/30/21 [facility] COVID-19 Antigenon 2 COVID-19 Antigen Healthcare Worker?: N Luacs Reference Lucas Reference Negative SARS-CoV+SARS-CoV-2 (COVID-19) Ag [...] its performance Lucas Disclaimer characteristic determined by [employer] and Lucas Disclaimer validated at [facility]. This Lucas Disclaimer test has not been [...] Emergency Use Authorization for Coronavirus Lucas Disclaimer isease-2018 during the Public Health Emergency) Lucas Disclaimer [...] is terminated or revoked sooner. PERFORMED BY: [place] [address] LIGHT SERVICER EDDIE CORTÉS M.D. Normal [facility] Comment on above: Performed By: #### C OVID-19 LUCAS, SOFIANEG #### [facility] [address] [place] [address] Lucas Ag Negativeon 07-25-19 22 Lucas Ag Negative Negative Normal Negative [facility] Comment on above: Result Comment: This is a duplicate Lucas SARS Antigen (REINIER) result to be used for statistical tracking purpose only. PERFORMED BY: [place] [address] LIGHT SERVICER EDDIE CORTÉS M.D. Performed By: #### C OVID-19 LUCAS, SOFIANEG #### [address] COVID-19 Antigenon 2 COVID-19 Antigen Healthcare Worker?: [...] its performance Lucas Disclaimer characteristic determined by [employer] and Lucas Disclaimer validated at [facility]. This Lucas Disclaimer test has not been [...] is terminated or revoked sooner. PERFORMED BY: [place] [phone] LIGHT SERVICER EDDIE CORTÉS M.D. Normal [facility] Comment on above: Performed By: #### S OFIANEG, COVID-19 LUCAS #### [address] Lucas Ag Negativeon 07-16-19 22 Lucas Ag Negative Negative Normal Negative [facility] Comment on above: Result Comment: This is a duplicate Lucas SARS Antigen (REINIER) result to be used for statistical tracking purpose only. PERFORMED BY: [place] [phone] LIGHT SERVICER EDDIE CORTÉS M.D. Performed By: #### C UU #### [address] #### VAGINITIS+ #### [facility] , Patient [...] meters squared number. To calculate BMI with Surinamese measurements: 1. Measure weight in lb. 2. [...] people from 2?20 years of age. Health critical care specialist use the charts to identify underweight and [...] 08/20/2004 Document Revised: 05/13/2018 Document Reviewed: 11/11/2016 [employer] Patient Education ? 2019 [employer]. [facility] Urinalysis - AUTOMATEDon Appearance (U) cloudy [employer] Other Bilirubin Ql (U) Negative [employer] Other Color (U) yellow [employer] Other Glucose Ql (U) Negative [employer] Other Hemoglobin Ql (U) Negative [employer] Other Ketones Ql (U) Negative [employer] Other Leukocyte esterase Test strip Ql (U) small [employer] Other Nitrite Ql (U) Negative [employer] Other pH (U) 8.5 [pH] [employer] Other Protein Ql (U) Negative [employer] Other Specific gravity (U) [Rel density] 1.025 [employer] Other Urobilinogen (U) [Mass/Vol] 1.0 mg/dL [employer] Other Urinalysis - AUTOMATED [employer] Other Urine Cultureon 04-08-2021 Bacteria identified Cx Nom (U) Reason for Exam Vaginal discharge Urine 75,000 colonies/ml mixed bacterial skin contaminants 2 Days PERFORMED BY: [address] [place] [address] LIGHT SERVICER EDDIE CORTÉS M.D. Normal [facility] Comment on above: Performed By: #### C UU #### [address] #### VAGINITIS+ #### [facility] , Vaginitis Plus (VG+)on 04-08 Atopobium Vaginae Low - 0 Normal . [facility] Comment on above: Order Comment: Reaso n for Exam High risk bisexual behavior Performed By: #### C UU #### [address] #### VAGINITIS+ #### [facility] , BVAB2 Low - 0 Normal . [facility] Comment on above: Order Comment: Reaso n for Exam High risk bisexual behavior Performed By: #### C UU #### [address] #### VAGINITIS+ #### [facility] , Makayla Albicans, YUNIOR Positive Critically abnormal Negative [facility] Comment on above: Order Comment: Reaso n for Exam High risk bisexual behavior Result Comment: This test was developed and its performance characteristics determined by [facility]. It has not been cleared or approved by the Food and Drug Administration. Performed By: #### C UU #### [place] [address] [place] #### VAGINITIS+ #### [facility] , Makayla Glabrata, YUNIOR Negative Normal Negative [facility] Comment on above: Order Comment: Reaso n for Exam High risk bisexual behavior Result Comment: This test was developed and its performance characteristics determined by [facility]. It has not been cleared or approved by the Food and Drug Administration. PERFORMED BY: [address] [place] [address] LIGHT SERVICER EDDIE CORTÉS M.D. Performed By: #### C UU #### [facility] [address] [place] [address] [place] #### VAGINITIS+ #### [facility] , Chlamydia Trachomotis, YUNIOR Negative Normal Negative [facility] Comment on above: Order Comment: Reaso n for Exam High risk bisexual behavior Performed By: #### C UU #### [facility] [address] [place] [address] [place] #### VAGINITIS+ #### [facility] , Megasphaera Low - 0 Normal . [facility] Comment on above: Order Comment: Reaso [...] Administration. Performed By: #### C UU #### [place] [address] [place] #### VAGINITIS+ #### [facility] , Neisseria Gonorrhoeae, YUNIOR Negative Normal Negative [facility] Comment on above: Order Comment: Reaso n for Exam High risk bisexual behavior Result Comment: Perf ormed at: =G - [facility] [address] [id number] Risk Mgr: Kim Anderson MD, Phone: [phone] Performed By: #### C UU #### [facility] [address] [place] [address] [place] #### VAGINITIS+ #### [facility] , Tric Vag YUNIOR Negative Normal Negative [facility] Comment on above: Order Comment: Reaso n for Exam High risk bisexual behavior Performed By: #### C UU #### [facility] [address] #### VAGINITIS+ #### [facility] , XR FEMUR [...] MD 11/15/19 Final result Normal [facility] Normal right femur x-rays. [place], [place] RIGHT FEMUR X-RAYS, 11/15/2019. HISTORY: Right hip and leg pain. COMPARISON: None. FINDINGS: AP and lateral views of the right femur were obtained. Bone mineralization is normal. Alignment is normal. There is no fracture. No dislocation. No degenerative changes. [place], [place] Sam, [facility] Incoming Radiant Results From [email or web address] - 11/15/2019 6:01 PM EDT RIGHT FEMUR X-RAYS, 11/15/2019. HISTORY: Right hip and leg pain. COMPARISON: None. FINDINGS: AP and lateral views of the right femur were obtained. Bone mineralization is normal. Alignment is normal. There is no fracture. No dislocation. No degenerative changes. IMPRESSION: Normal right femur x-rays. [place], [place] ED Provider Noteon 9 Protein mass conc [facility] ED eMERGENCY dEPARTMENT eNCOUnter Pt Name: Maribel [...] the Claritin, Tessalon, increase fluids, rest. Take hweq-iic-ckyxopt Tylenol or ibuprofen as if her pain. [...] Discharge 08/10/2018 10:34:25 AM PATIENT REFERRED TO: [place] [address] [place] [address] Call As needed DISCHARGE MEDICATIONS: New [...] Emergency Medicine Provider KARMEN Urrutia CNP 08/10/[address] [place] [address] Vital Signs Date Time Vital Sign Value Performing Clinician Facility 04-17-2024 10:11-050 Body weight 71.22 kg Eldon Kaykay DO Work Phone: [facility] 04-17-2024 10:11-0500 Diastolic blood pressure 62 mm[Hg] Eldon Kaykay DO Work Phone: [facility] 04-17-2024 10:11-0500 Systolic blood pressure 110 mm[Hg] Eldon Kaykay DO Work Phone: [facility] 03-16-2024 12:06-0400 Body weight 68.04 kg Marycarmen MELÉNDEZ Work Phone: [facility] 03-16-2024 12:06-0400 Diastolic blood pressure 66 mm[Hg] Marycarmen MELÉNDEZ Work Phone: [facility] 03-16-2024 12:06-0400 Systolic blood pressure 108 mm[Hg] Marycarmen MELÉNDEZ Work Phone: [facility] 03-08-2024 18:24-0400 Body height 165.1 cm [facility] 03-08-2024 18:24-0400 Body mass index (BMI) [Ratio] 24.7 kg/m2 [facility] 03-08-2024 18:24-0400 Body temperature 99.1 [degF] [facility] 03-08-2024 18:24-0400 Body weight 67.58 kg [facility] 03-08-2024 18:24-0400 Diastolic blood pressure 88 mm[Hg] [facility] 03-08-2024 18:24-0400 Heart rate 84 /min [facility] 03-08-2024 18:24-0400 Respiratory rate 18 /min [facility] 03-08-2024 18:24-0400 SaO2% (BldA) [Mass fraction] 96 % [facility] 03-08-2024 18:24-0400 Systolic blood pressure 130 mm[Hg] [facility] 02-13-2022 07:25-0400 Diastolic blood pressure 98 mm[Hg] Kevin Alvaradoe [facility] 02-13-2022 07:25-0400 Systolic blood pressure 153 mm[Hg] Kevin Alvaradoe [facility] 02-13-2022 06:20-0400 Body temperature 98.24 [degF] Kevin Alvaradoe [facility] 02-13-2022 06:20-0400 Diastolic blood pressure 74 mm[Hg] Kevin Alvaradoe [facility] 02-13-2022 06:20-0400 Heart rate 75 /min Kevin Alvaradoe [facility] 02-13-2022 06:20-0400 Respiratory rate 20 /min Kevin Santoro [facility] 02-13-2022 06:20-0400 SaO2% (BldA) [Mass fraction] 98 % Kevin Santoro [facility] 02-13-2022 06:20-0400 Systolic blood pressure 119 mm[Hg] Kevin Alvaradoe [facility] 10-19-2021 17:09-0400 Body temperature 98.96 [degF] Miko Yepez [facility] 10-19-2021 17:09-0400 Diastolic blood pressure 84 mm[Hg] Miko Yepez [facility] 10-19-2021 17:09-0400 Heart rate 89 /min Miko Yepez [facility] 10-19-2021 17:09-0400 Respiratory rate 17 /min Miko Yepez [facility] 10-19-2021 17:09-0400 SaO2% (BldA) [Mass fraction] 100 % Miko Yepez [facility] 10-19-2021 17:09-0400 Systolic blood pressure 138 mm[Hg] Miko Yepez [facility] 09-17-2021 15:00-0400 Body weight 61.69 kg Amy Tang Other [employer] [facility] [employer] Other 06-25-2021 15:15-0500 Body weight 62.6 kg Amy Tang Other [employer] [facility] [employer] Other 04-08-2021 14:50-0400 Body height 163.83 cm Maribel Randall Other [employer] Other 04-08-2021 14:50-0400 Body mass index (BMI) [Ratio] 24.84 kg/m2 Maribel Randall Other [employer] Other 04-08-2021 14:50-0400 Body temperature 98.2 [degF] Maribel Randall Other [employer] Other 04-08-2021 14:50-0400 Body weight 66.68 kg Maribel Randall Other [employer] Other 04-08-2021 14:50-0400 Diastolic blood pressure 80 mm[Hg] Maribel Randall Other [employer] Other 04-08-2021 14:50-0400 Respiratory rate 18 /min Maribel Randall Other [employer] Other 04-08-2021 14:50-0400 SaO2% (BldA) [Mass fraction] 100 % Maribel Randall Other [employer] Other 04-08-2021 14:50-0400 Systolic blood pressure 131 mm[Hg] Maribel Randall Other [employer] Other Encounters Encounter Date Encounter Type Care Provider Facility Start: 04-17-2024 End: 04-17-2024 Bamboo flowsheet Eldon Kaykay DO Work Phone: [facility] Start: 04-17-2024 End: 04-17-2024 Bamboo flowsheet Eldon Kaykay DO Work Phone: [facility] Start: 04-17-2024 End: 04-17-2024 ambulatory ELDON KAYKAY Not Available Start: 04-17-2024 End: 04-17-2024 Office outpatient visit 15 minutes Eldon Kaykay DO Work Phone: [facility] Comment on above: Second trimester pre gnancy; 24 weeks gestation of ; Diabetes mellitus screening Start: 03-16-2024 End: 03-16-2024 Bamboo flowsheet Marycarmen MELÉNDEZ Work Phone: [facility] Start: 03-16-2024 End: 03-16-2024 Bamboo flowsheet Marycarmen MELÉNDEZ Work Phone: [facility] Start: 03-16-2024 End: 03-16-2024 ambulatory MARYCARMEN ROWAN Not Available Start: 03-16-2024 End: 03-16-2024 Office outpatient visit 15 minutes Marycarmen MELÉNDEZ Work Phone: [facility] Comment on above: 20 weeks gestation o f (Primary Dx); Second trimester ; Constipation, unspecified constipation type Start: 03-08-2024 End: 03-08-2024 ambulatory [facility] Work Phone: Start: 03-08-2024 End: 03-08-2024 Patient encounter procedure [facility] Work Phone: Start: 02-17-2024 End: 02-17-2024 ambulatory MARYCARMEN ROWAN Not Available Start: 01-20-2024 End: 01-20-2024 ambulatory ELDON MCCRACKEN Not Available Start: 08-12-2023 End: 08-12-2023 ambulatory AMBREEN DAN Not Available Start: 07-10-2022 End: 07-10-[address] NASEEM VEE Facility:[facility] Start: 06-17-2022 End: 06-17-[address] JAYSON FIORE Facility:[facility] Start: 03-02-2022 End: 03-02-2022 ambulatory Lucia Thorne Facility:[facility] Start: 03-02-2022 End: 03-02-2022 Departed Referred MD Lucia Thorne Work Phone: [facility] Start: 02-13-2022 End: 02-13-2022 Emergency department patient visit Kevin Santoro [facility] Start: 02-03-2022 End: 02-03-2022 Patient encounter procedure CAITIE MARSHALL [facility] Start: 01-15-2022 End: 01-16-[address] JOE PEREZ Facility:[facility] Start: 10-19-2021 End: 10-19-2021 Emergency department patient visit Miko Yepez [facility] Start: 09-19-2021 End: 09-20-[address] JOE PEREZ Facility:[facility] Start: 09-17-2021 End: 09-17-2021 ambulatory Amy Tang Other [employer] Other Start: 09-17-2021 Office outpatient visit 15 minutes Amy Tang [facility] Start: 08-05-2021 End: 08-05-2021 ambulatory Amy Tang Facility:[facility] Start: 08-01-2021 End: 08-01-2021 ambulatory Amy Tang Other [employer] Other Start: 08-01-2021 Telephone encounter Amy Tang [facility] Start: 07-29-2021 Telephone encounter Amy Tang [facility] Start: 07-29-2021 End: 07-29-2021 ambulatory Amy Tang [facility] [employer] Other Start: 07-25-2021 End: 07-25-2021 ambulatory Amy Tang Facility:[facility] Start: 07-16-2021 End: 07-16-2021 ambulatory Amy Tang Facility:[facility] Start: 06-25-2021 End: 06-25-2021 ambulatory Amy Tang Other [employer] Other Start: 06-25-2021 Office outpatient visit 25 minutes Amy Tang [facility] Start: 04-08-2021 End: 04-08-2021 ambulatory Maribel Randall Facility:[facility] Start: 04-08-2021 Office outpatient visit 15 minutes Maribel Randall [facility] Start: 11-15-2019 End: 11-18-2019 Patient encounter procedure MICHAEL YEPEZ SERINA [facility] Start: 11-15-2019 End: 11-17-2019 Subsequent hospital visit by physician Pauline Ko 1 [facility] Comment on above: Injury of right knee , initial encounter Start: 11-15-2019 End: 11-18-2019 Patient encounter procedure MICHAEL YEPEZ SMALLS [facility] Start: 11-15-2019 End: 11-17-2019 Subsequent hospital visit by physician Joe Perez [facility] Start: 08-10-2018 Emergency department patient visit UNKNOWN PROVIDER [facility] Procedures Date Procedure Procedure Detail Performing Clinician Start: 04-17-2024 Urnls dip stick/tabl et rgnt non-auto w/o micrscp Eldon Mccracken DO Work Phone: Start: 03-16-2024 Urnls dip stick/tabl et rgnt non-auto w/o micrscp Marycarmen MELÉNDEZ Work Phone: Start: 03-08-2024 Quick Strep (POC) Start: 01-24-2020 Arthroscopy of knee Miko Yepez Start: 11-15-2019 Radiologic examinati on femur minimum 2 views MICHAEL SMALLS Start: 11-15-2019 Radiologic examinati on femur minimum 2 views Vincent Smalls Other Phone: Plan of Treatment Date Care Activity Detail Author Start: 05-24-2024 End: 05-24-2024 Patient encounter procedure 05/24/2024 11:10 AM EST Routine [facility] [address] [place] [id number] Eldon Mccrackne DO [address] [place] [address] [facility] Start: 05-08-2024 End: 05-08-2024 Patient encounter procedure 05/08/2024 10:30 AM EST Routine [facility] [address] [facility] [place] [id number] Marycarmen Rowan PA [address] [place] [address] [facility] Start: 04-17-2024 End: 04-17-2025 CBC panel - Blood by Automated count CBC Lab Routine Diabetes mellitus screening Expected: 04/17/2024 (Approximate), Expires: 04/17/2025 [facility] Work Phone: Comment on above: Expected: 04/17/2024 (Approximate), Expires: 04/17/2025 Start: 04-17-2024 End: 04-17-2025 Measurement of glucose 1 hour after glucose challenge for glucose tolerance test Glucose tolerance, 1 hour Lab Routine Diabetes mellitus screening Expected: 04/17/2024 (Approximate), Expires: 04/17/2025 [facility] Comment on above: Expected: 04/17/2024 (Approximate), Expires: 04/17/2025 Start: 04-17-2024 End: 04-17-2024 Patient encounter procedure 04/17/2024 9:50 AM EST Routine [facility] [address] [place] [id number] Eldon Mccracken, DO [address] [place] [address] [facility] Start: 02-13-2024 Influenza vaccination Influenza Vacc ine (#1) [facility] Start: 02-13-2020 Influenza vaccination Flu vacc ine (Season Ended) [place], [place] Start: 2018 Meningococcal (ACWY) vaccine (1 - 2-dose series) Meningococcal (ACWY) vaccine (1 - 2-dose series) [place] Start: 2018 Screening for Chlamy nkechi trachomatis Chlamydia screen [place], [place] Start: 2017 HIV screening HIV screen [place], [place] Start: 2013 HPV vaccine (1 - 2-d ose series) HPV vaccine (1 - 2-dose series) [place] Start: 2009 DTaP/Tdap/Td vaccine (1 - Tdap) DTaP/Tdap/Td vaccine (1 - Tdap) [place] Start: 2003 Hepatitis A vaccine (1 of 2 - 2-dose series) Hepatitis A vaccine (1 of 2 - 2-dose series) [place] Start: 2003 Measles,Mumps,Rubell a (MMR) vaccine (1 of 2 - Standard series) Measles,Mumps,Rubella (MMR) vaccine (1 of 2 - Standard series) [place] Start: 2003 Varicella vaccine (1 of 2 - 2-dose childhood series) Varicella vaccine (1 of 2 - 2-dose childhood series) [place] Start: 2002 Polio vaccine (1 of 3 - 4-dose series) Polio vaccine (1 of 3 - 4-dose series) [place] Start: 2002 Hepatitis B vaccine (1 of 3 - 3-dose primary series) [place] Atopobium vaginae DN A [Presence] in Vaginal fluid by YUNIOR with probe detection [facility] Work Phone: Bacteria identified in Urine by Culture [facility] Bacterial vaginosis associated bacterium 2 DNA [Presence] in Vaginal fluid by YUNIOR with probe detection [facility] Work Phone: Megasphaera sp type 1 DNA [Presence] in Vaginal fluid by YUNIOR with probe detection [facility] Work Phone: Payers Date Payer Category Payer Medicaid 2022 Unknown [id number] 2021 Self-pay [id number] 2018 Unknown [employer] xxxxxxxxxxx 2018-Present [phone] [address] [place] [address] xxxxxxxxxxx [id number] 2018 Unknown [id number] 2002 Unknown [id number] 2.16.840.1.923028.3.579.2. 593 2002 Unknown [id number] 2.16.840.1.231458.3.579.2. 593 2002 Unknown [id number] 2.16.840.1.171602.3.579.2. 593 2002 Unknown [id number] 2.840.1.923382.3.579.2. 593 2002 Unknown [id number] 2.16.840.1.469305.3.579.2. 1259 2002 Unknown [id number] 2.16.840.1.706286.3.579.2. 1259 2002 Unknown [id number] 2.840.1.628875.3.579.2. 1259 2002 Unknown [id number] 2.16.840.1.734013.3.579.2. 1259 1989 Unknown [id number] 2.840.1.691552.3.579.2. 174 1989 Unknown [id number] 2.16840.1.078344.3.579.2. 174 1984 Unknown [id number] 2.840.1.373005.3.579.2. 668 1959 Medicaid [id number] Private Health Insurance [facility] [id number] Unknown [id number] 07.30.830.1.035752.3.579.2. 531 Unknown [id number] 07.30.830.1.729665.3.579.2. 531 Unknown [id number] 07.30.830.1.257850.3.579.2. 531 Unknown [id number] 07.30.830.1.101501.3.579.2. 531 Unknown [id number] 07.30.830.1.493443.3.579.2. 531 Unknown [id number] 07.30.830.1.344674.3.579.2. 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) [facility] Start: 2002 Sex Assigned At Not on file M [facility]rike [facility] Sex Assigned At Female [employer] Other Tobacco smoking status No Smoking Status Entered [facility] Start: 2002 Sex Assigned At Female F [facility] Start: 08-20-2023 Tobacco smoking status NHIS Unknown if ever smoked [facility] Start: 11-10-2023 [facility] Functional Status Date Assessment Result Facility 02-13-2022 Functional Status N/A [facility] Clinical Notes 04-08-2021 to 04-17-2024 Carole Jade LPN - 04/17/2024 9:50 AM [facility] - 03/16/2024 11:30 AM EDT Note Date & Type Note Facility 04-17-2024 History of Presen t illness Narrative Reason for Appointment: Patient ID: Maribel Velez is a 23 y.o. female who presents for Routine Visit Patient presents today for Return OB appointment. MEDICATIONS Current Outpatient Medications Medication Instructions albuterol (ProAir Digihaler) 90 mcg/act breath-activated inhaler (w/ sensor) 2 puffs, Inhalation, Every 4 hours PRN magnesium oxide (MAG-OX) 400 mg, Oral, Daily Exrtlrhn-Tga-Fs-FA ( 1 + IRON PO) Oral ALLERGIES Allergies Allergen Reactions Red Dye Other Reaction(s): Swelling of Lip/Tongue/Throat Red Dye #40 (Allura Red) Rash PROBLEMS Active Ambulatory Problems Diagnosis Date Noted No Active Ambulatory Problems Resolved Ambulatory Problems Diagnosis Date Noted No Resolved Ambulatory Problems No Additional Past Medical History HISTORY PAST MEDICAL HISTORY SOCIAL HISTORY No past medical history on file. Social History Tobacco Use Smoking status: Not on file Smokeless tobacco: Not on file Substance Use Topics Alcohol use: Not on file Drug use: Not on file FAMILY HISTORY No family history on file. SURGICAL HISTORY History reviewed. No pertinent surgical history. REVIEW OF SYSTEMS Review of Systems: Review of Systems All other systems reviewed and are negative. OBJECTIVE Objective: Physical Exam Constitutional: Appearance: Normal appearance. She is well-developed. Cardiovascular: Rate and Rhythm: Normal rate and regular rhythm. Pulmonary: Effort: Pulmonary effort is normal. Breath sounds: Normal breath sounds. Abdominal: General: Bowel sounds are normal. There is no distension. Palpations: Abdomen is soft. Tenderness: There is no abdominal tenderness. There is no guarding or rebound. Musculoskeletal: General: No swelling. Normal range of motion. Right lower leg: No edema. Left lower leg: No edema. Neurological: Mental Status: She is alert and oriented to person, place, and time. Skin: General: Skin is warm and dry. Psychiatric: Mood and Affect: Mood normal. Behavior: Behavior normal. Vitals and nursing note reviewed. Exam conducted with a academic support center director present. Vitals: Estimated body mass index is 21.8 kg/m as calculated from the following: Height as of 04/04/20: 5' 4.75 . Weight as of 04/04/20: 130 lb. BP: 110/62 Patient's last menstrual period was 10/27/2023. ASSESSMENT & PLAN ICD-10-CM 1. Second trimester Z34.92 POCT urinalysis dipstick manually resulted 2. 24 weeks gestation of Z3A.24 3. Diabetes mellitus screening Z13.1 CBC Glucose tolerance, 1 hour Patient presents today for a routine obstetrics appointment. Patient is currently 24w5d with a Estimated Date of Delivery: 08/02/24. Patient given orders for 1hour gtt and CBC to be drawn sometime prior to next appointment. Patient to return to clinic in 4 weeks for routine OB appointment. Patient complaints of lower back pain and repeat ultrasound order given to patient today as well. Documented by Carole Jade LPN on behalf of: Eldon Mccracken DO documented in this encounter [facility] History of Presen t illness Narrative Reason for Appointment: Patient ID: Maribel Velez is a 23 y.o. female who presents for Routine Visit Patient presents today for Return OB appointment. MEDICATIONS Current Outpatient Medications Medication Instructions albuterol (ProAir Digihaler) 90 mcg/act breath-activated inhaler (w/ sensor) 2 puffs, Inhalation, Every 4 hours PRN docusate sodium (COLACE) 100 mg, Oral, 2 times daily PRN magnesium oxide (MAG-OX) 400 mg, Oral, Daily Rybygndn-Myj-Gf-FA ( 1 + IRON PO) Oral ALLERGIES Allergies Allergen Reactions Red Dye Other Reaction(s): Swelling of Lip/Tongue/Throat Red Dye #40 (Allura Red) Rash PROBLEMS Active Ambulatory Problems Diagnosis Date Noted No Active Ambulatory Problems Resolved Ambulatory Problems Diagnosis Date Noted No Resolved Ambulatory Problems No Additional Past Medical History HISTORY PAST MEDICAL HISTORY SOCIAL HISTORY History reviewed. No pertinent past medical history. Social History Tobacco Use Smoking status: Not on file Smokeless tobacco: Not on file Substance Use Topics Alcohol use: Not on file Drug use: Not on file FAMILY HISTORY No family history on file. SURGICAL HISTORY History reviewed. No pertinent surgical history. REVIEW OF SYSTEMS Review of Systems: Review of Systems Constitutional: Negative. HENT: Negative. Eyes: Negative. Respiratory: Negative. Cardiovascular: Negative. Gastrointestinal: Negative. Genitourinary: Negative. Musculoskeletal: Negative. Skin: Negative. Neurological: Negative. All other systems reviewed and are negative. Hematological: Negative. Endocrine: Negative. Allergic/Immunologic: Negative. OBJECTIVE Objective: Physical Exam Constitutional: Appearance: Normal appearance. She is normal weight. HENT: Head: Normocephalic. Cardiovascular: Rate and Rhythm: Normal rate. Pulses: Normal pulses. Pulmonary: Effort: Pulmonary effort is normal. Breath sounds: Normal breath sounds. Abdominal: Palpations: Abdomen is soft. Musculoskeletal: General: Normal range of motion. Neurological: General: No focal deficit present. Mental Status: She is alert and oriented to person, place, and time. Psychiatric: Mood and Affect: Mood normal. Behavior: Behavior normal. Thought Content: Thought content normal. Judgment: Judgment normal. Vitals and nursing note reviewed. Vitals: Estimated body mass index is 21.8 kg/m as calculated from the following: Height as of 04/04/20: 5' 4.75 . Weight as of 04/04/20: 130 lb. BP: 108/66 Patient's last menstrual period was 10/27/2023. ASSESSMENT & PLAN ICD-10-CM 1. Second trimester Z34.92 Urine dip 2. Constipation, unspecified constipation type K59.00 docusate sodium (Colace) 100 MG capsule Return OB: Patient presents today for a routine obstetrics appointment. Patient is currently 20w1d . Patient states she is doing well but has complaints of being tired due to current . Patient has verbalizes frequent movement. Orders Placed This Encounter Procedures Urine dip Follow Up: Patient is to return to office in 4 week for routine OB appointment. Documented by MEDHAT Conde on behalf of: MEDHAT Conde documented in this encounter [facility] [place] 02-13-[facility] Evaluation + Plan note Extrac kasey [...] or worsen. Diagnosis: Rectal bleeding [facility]09-02-2022 Hospital Discharge instructions Patient Education 02/13/2022 07:28:37 Rectal Bleeding, Ukum-zj-Lrqa Rectal Bleeding Rectal bleeding is when blood [...] 02/10/2012 Document Revised: 05/13/2018 Document Reviewed: 07/26/2016 [employer] Patient Education 2020 [email or web address]. 02/13/2022 07:28:37 Hemorrhoids, Yrhd-iu-Awvk Hemorrhoids Hemorrhoids are swollen veins that may [...] 3 times a day. General instructions Take dqsr-abr-wvftgwu and prescription medicines only as told by [...] 03/09/2009 Document Revised: 06/08/2019 Document Reviewed: 10/20/2018 [employer] Patient Education 2020 [email or web address]. Follow Up Care 02/13/2022 06:18:09 With:Yu GREENE Address: [facility] [address] [place] [address] Cristofer Burns [facility] [place] [address]- [facility] (1) When:02/16/2022 07:21:18 With:CAITIE MARSHALL Address:Unknown When:Within 3 Day(s) [facility]05-08-2022 Hospital Discharge instructions Patient Education 10/19/2021 17:18:27 Viral Respiratory Infection, Rrdm-Ub-Btfd Viral Respiratory Infection A viral respiratory infection [...] at home: Managing pain and congestion Take edhd-dgk-tbelmtd and prescription medicines only as told by [...] and water are not available, use hand senior talent management consultant. Avoid contact with people who are sick [...] 05/13/2009 Document Revised: 06/08/2019 Document Reviewed: 07/11/2018 [employer] Patient Education 2020 [email or web address]. Follow Up Care 10/19/2021 17:07:38 With:Michelle Mata Address:Unknown When:10/22/2021 [facility]04-06-2022 Evaluation note* Encounter Date Diagnosis Assessment Notes Treatment Notes Treatment Clinical Notes Sep, Rectal bleeding (ICD-10 - K62.5) PATIENT STATES THIS HAPPENS EVERY COUPLE OF MONTHS Sep, Abdominal pain (ICD-10 - R10.9) PATIENT DID HAVE THIS LAST NIGHT ON THE RIGHT SIDE UNDER HER RIBS PATIENT DOES CONTINUE ON THE MEDICATION WILL ORDER SOME TESTING Sep, Diarrhea (ICD-10 - R19.7) [facility] [employer] Other 02-15-2022 Evaluation note* Encounter Date Diagnosis Assessment Notes Treatment Notes Treatment Clinical Notes Jul, Blood in stool (ICD-10 - K92.1) Jul, Abdominal pain (ICD-10 - R10.9) [facility] [employer] Other 01-12-2022 Evaluation note* Encounter Date Diagnosis Assessment Notes Treatment Notes Treatment Clinical Notes Jun, Diarrhea (ICD-10 - R19.7) Jun, Rectal bleeding (ICD-10 - K62.5) PATIENT ENCOURAGED TO HAVE A COLONOSCOPY START ABOVE MEDICATION Jun, Abdominal pain (ICD-10 - R10.9) [facility] [employer] Other 10-26-2021 Evaluation note* Encounter Date Diagnosis [...] up to a week to get back. [employer] Other Chief complaint+Reason for visit Narrative* Chief Complaint Cough, sinus congest ion Reason for Visit Contact with and (mckee spected) exposure to covid-19 Sore throat [facility] Work Phone: Evaluation + Plan note No data available for this section [facility] [employer] Other Evaluation noteNo assessment information available [facility] Work Phone: Evaluation note* Diagnosis Onset Date Resolution Status Contact with and (suspected) exposure to covid-19 noneactive Sore throat noneactive [facility] Work Phone: Evaluation note* Diagnosis 20 weeks gestation of - Primary Second trimester state, incidental Constipation, unspecified constipation type [facility] Diagnosis Second trimester state, incidental 24 weeks gestation of Diabetes mellitus screening Screening for diabetes mellitus documented [facility] Narrative - Reported* Type Description Date Medical History IBS Medical History Constipation Medical History allergies Surgical History right torn lateral meniscus [employer] Other Hospital Discharge instructions No data [facility] this [facility] No data available for this section [facility] Summary Purpose Family History Relationship Condition Age at Onset Recorded Date/T patrice grandparent Cardiovascular disease Unknown grandparent Malignant neoplasm of thyroid gland Unkno wn Not Specified Malignant neoplasm of ovary Unknown father Asthma Unknown brother Asthma Unknown Relationship Condition Age at Onset Recorded Date/T patrice grandparent Cardiovascular disease Unknown grandparent Malignant neoplasm of thyroid gland Unkno wn mother Malignant neoplasm of ovary Unknown father Asthma Unknown brother Asthma Unknown father Heart disease Unknown mother Hypertension Unknown Family history of mental disorder Unknown Malignant neoplasm Unknown Advance Directives Documents on File Type Date Recorded Patient Assistant Curator Expl anation Advance Directives and Living Will Power of Content Engineer Advance Directive Response Recorded Date/ Time Advance Directives No April 16, 2021 2:28pm Advance Directive Response Recorded Date/ Time Advance Directives No August 19 3:12pm Assessments Diagnosis Injury of right knee, initial encounter Chief Complaint and Reason for Visit Chief Complaint Dysuria Vaginal odor Additional Source Comments INFORMATION SOURCE (unrecogn ized section and content) DATE CREATED AUTHOR 08/20/2018 [employer] DATE CREATED AUTHOR AUTHOR'S ORGANIZ ATION 11/18/2019 [facility] DATE CREATED AUTHOR AUTHOR'S ORGANIZ ATION 02/17/2022 [facility] DATE CREATED AUTHOR AUTHOR'S ORGANIZ ATION 03/14/[address] [facility] DATE CREATED AUTHOR AUTHOR'S ORGANIZ ATION 07/13/2022 [facility] DATE CREATED AUTHOR AUTHOR'S ORGANIZ ATION 04/18/2024 [facility] EPIC REASON FOR VISIT (unrecogniz ed section and content) Reason Comments Routine Visit Care Team (unrecognized sect ion and content) Team Status: Inactive Member Role Status Dates Lucia Thorne MD RES Attending Provider Active Team Status: Active Member Role Status Dates NON STAFF Primary Care Provider Active Team Status: Inactive Member Role Status Dates NON STAFF Primary Care Provider Active Start: March 08, 2024 End: March 08, 2024 Shanice Bustamante APRN Attending Provider Active S tart: March 08, 2024 End: March 08, 2024 Drawer In Jacquard Loom Relationship Specialty Start Date End Date Unallocated, Chente Heredia MD [facility] [place] [address] PCP - General Family Medicine 08/12/23 Drawer In Jacquard Loom Relationship Specialty Start Date End Date Unallocated, Chente Heredia MD [facility] [place] [address] PCP - General Family Medicine 08/12/23 Drawer In Jacquard Loom Relationship Specialty Start Date End Date Unallocated, Chente Heredia MD [facility] [place] [address] PCP - General Family Medicine 08/12/23 Drawer In Jacquard Loom Relationship Specialty Start Date End Date Unallocated, Chente Heredia MD [facility] [place] [address] PCP - General Family Medicine 08/12/23 Goals (unrecognized section and content) Goals may [...] BE BASED ON THE PRIMARY CLINICAL RECORDS. [facility], [facility]. provides no warranty or guarantee of the accuracy or completeness of information in this document.
== END 2024-04-28 10:16 | disposition home or self-care (01) ==
LOC: US 10:15
PROVIDERS: Visit Provider Obstetrics & Gynecology
DX: O26.893 Other specified pregnancy related conditions, third trimester (principal); Z3A.26 26 weeks gestation of pregnancy; Z13.1 Encounter for screening for diabetes mellitus
CPT/HCPCS: 76815

== ENCOUNTER 2024-05-09 15:26 | Outpatient (OUT) | payer MEDICAID, SELFPAY ==
--- OUTSIDE RECORDS SUMMARY | 2024-05-09 15:51 | XMS_ITS | CCD ---
Author Organization 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 Name Role Phone PROVIDER, UNKNOWN Attending Unavailable PROVIDER, UNKNOWN Referring Unavailable Bal[place], PCP Primary Care Unavailable Joe Perez Primary Care Provider UnavailMICHAEL Staley Referring Unavailab JOE Asif Primary Care Unavailable MICHAEL SMALLS Referring Unavailab JOE Asif Primary Care Unavailable JOE PEREZ Primary Care Physician Maribel Randall Unavailable Amy Tang Unavailable CAITIE MARSHALL Primary Care Physician [phone] CAITIE MARSHALL Primary Care Physician [phone] MD Lucia Thorne Attending Provider Lucia Thorne Admitting Unavailable Lucia Thorne Attending Unavailable NON STAFF Primary Care Unavailable Amy Tang Attending Unavailable Amy Tang Admitting Unavailable Joe Perez Primary Care Unavailable Amy Tang Attending Unavailable Joe Perez Primary Care Unavailable Amy Tang Admitting Unavailable Maribel Randall Admitting Unavailable Maribel Randall Attending Unavailable [facility] Services Primary Care Unavaila ble Amy [...] MACARENA, DR TYLER Consulting Unavailable Timmy VENCES, [facility] Provider Primary Care Provi fatuma AMBREEN DAN Attending Unavailable ELDON MCCRACKEN Attending Unavailable MARYCARMEN ROWAN Attending Unavailable MARYCARMEN ROWAN Attending Unavailable ELDON MCCRACKEN Attending Unavailable Allergies Allergy Classification Reported Allergen(s) Allergy Type Date of Onset Reaction(s) Facility (18 sources) Contrast media; 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: [red dye] Drug allergy 7 [employer] Other (9 sources) Red Dye #40 (Allura Red) Allergy to substance 3 [facility] Work Phone: Medications Current Medications Medication Drug Class(es) Dates Sig (Normalized) Sig (Original) sensor 200 actuat albuterol 0.09 mg/actuat dry powder inhaler (9 sources) beta2-Adrenergic Agonist Start: 03-08-2024 take 2 [...] Active magnesium oxide 400 mg oral tablet (9 sources) Start: 02-17-2024 End: 09-14-2024 take 1 [...] Date: 02/13/22 Stop Date: 02/20/22 Status: Ordered Luwvqqae-Jyv-Et-FA ( 1 + IRON PO) (9 sources) Ommpgyzv-Gbt-Pp-FA ( 1 + IRON PO) Take by [...] oral tablet (1 source) alpha-Adrenergic Agonist, Uncompetitive N-lrsnje-X-aspartat e Receptor Antagonist, Sigma-1 Agonist Start: 08-20-2023 [...] Onset: 06-17-2022 Episodic Other aftercare (1 source) retirement (current) use of hormonal contraceptives; 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: [RESIDENTIAL [...] 10-19-2021 Episodic Other and delivery including normal (6 sources) Second trimester ; 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: [Encounter for [...] of ] 03-16-2024 Episodic Residual codes; unclassified (7 sources) Gestation period, 24 weeks; 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: [24 weeks gestation of ] Onset: 04-17-2024 04-17-2024 Episodic Residual codes; unclassified (2 sources) Gestation period, 29 weeks; 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: [29 weeks gestation of ] 05-08-2024 Episodic Skin and subcutaneous tissue infections (1 [...] Range Facility Urinalysis macro (dipstick) panel (U)on 05-08-2024 Bilirubin, UA Negative Negative - 4(70) +++ mg/dL [facility] Blood, UA Negative Negative - 50 Erwin/mcL [facility] Clarity, UA Clear [facility] Color, UA Yellow [facility] Glucose, UA Negative Negative - 2000(110) ++++ mg/dL [facility] Interpretation and review of laboratory results Normal [facility] Ketones, UA Negative Negative - 160(16) ++++ mg/dL [facility] Leukocytes, UA Negative Negative - 500+++ Kevin/mcL [facility] Healthcare Nitrite, UA Negative Negative - Positive [facility] Healthcare pH, UA 6 5 - 9 [facility] Protein, UA Negative Negative - 1999(20) ++++ mg/dL [facility] Spec Grav, UA 1.02 1 - 1.03 [facility] care Urobilinogen, UA 1.0 0.2 - 12 mg/dL [facility] Urinalysis macro (dipstick) panel (U)on 04-17-2024 Bilirubin, UA Negative Negative - 4(70) +++ mg/dL [facility] Blood, UA Negative Negative - 50 Erwin/mcL [facility] Clarity, UA Clear [facility] Color, UA Yellow [facility] Glucose, UA Negative Negative - 1999(110) ++++ mg/dL [facility] Interpretation and review of laboratory results Normal [facility] Ketones, UA Negative Negative - 160(16) ++++ mg/dL [facility] Healthcare Leukocytes, UA Negative Negative - 500+++ Kevin/mcL [facility] Healthcare Nitrite, UA Negative Negative - Positive [facility] pH, UA 6 5 - 9 [facility] Protein, UA Negative Negative - 1999(20) ++++ mg/dL [facility] Healthcare Spec Grav, UA 1.02 1 - 1.03 [facility] Urobilinogen, UA 0.2 0.2 - 12 mg/dL [facility] Urinalysis macro (dipstick) panel (U)on 03-16-2024 Bilirubin, UA Negative Negative - 4(70) +++ mg/dL [facility] Blood, UA Negative Negative - 50 Erwin/mcL [facility] Healthcare Clarity, UA Clear [facility] Color, UA Yellow [facility] Glucose, UA Negative Negative - 1999(110) ++++ mg/dL [facility] Interpretation and review of laboratory results Normal [facility] Healthcare Ketones, UA Negative Negative - 160(16) ++++ mg/dL [facility] Healthcare Leukocytes, UA Negative Negative - 500+++ Kevin/mcL [facility] Healthcare Nitrite, UA Negative Negative - Positive [facility] pH, UA 5.5 5 - 9 [facility] Protein, UA Negative Negative - 1999(20) ++++ mg/dL [facility] Healthcare Spec Grav, UA 1.020 1 - 1.03 [facility] Health care Urobilinogen, UA 1.0 0.2 - 12 mg/dL [facility] Healthcare [facility] No Panel InformationOrdered By: Shanice Bustamante on 03-08-2024 Quick Strep (POC) [facility] CULTURE URINEon 07-12-2022 CULTURE URINE [...] S F Tetracycline >=16 R F Normal [facility] Comment on above: Performed By: #### U RCX #### [facility] [address] [address] [address] Venancio Soriano ER URINE PROFILEon 3 Bilirubin Ql (U) Negative Normal NEGATIVE [facility] Comment on above: Performed By: #### U MICRO, PREGU, ERUR #### [facility] [address] [place] [address] Dr. Venancio Soriano Clarity (U) CLEAR Normal CLEAR [facility] Comment on above: Performed By: #### U MICRO, PREGU, ERUR #### [facility] [address] [address] [address] Venancio Soriano Color (U) LT. YELLOW Normal YELLOW [facility] Comment on above: Performed By: #### U MICRO, PREGU, ERUR #### [facility] [address] [place] [address] Dr. Venancio FREEMAN A micrscopic examination will be performed if indicated. Normal The [facility] Comment on above: Performed By: #### U MICRO, PREGU, ERUR #### [facility] [address] [place] [address] Dr. Venancio Soriano Glucose Ql (U) Negative Normal NEGATIVE [facility] Comment on above: Performed By: #### U MICRO, PREGU, ERUR #### [facility] [address] [address] [address] Venancio Soriano Hemoglobin Ql (U) TRACE-INTACT Abnormal NEGATIVE [facility] Comment on above: Performed By: #### U MICRO, PREGU, ERUR #### [facility] [address] [address] [address] Venancio Soriano Ketones Ql (U) Negative Normal NEGATIVE [facility] Comment on above: Performed By: #### U MICRO, PREGU, ERUR #### [facility] [address] [place] [address] Dr. Venancio Soriano LEUKOCYTES SMALL Abnormal NEGATIVE [facility] Comment on above: Performed By: #### U MICRO, PREGU, ERUR #### [facility] [address] [place] [address] Dr. Venancio Soriano Nitrite Ql (U) Negative Normal NEGATIVE [facility] Comment on above: Performed By: #### U MICRO, PREGU, ERUR #### [facility] [address] [place] [address] Dr. Venancio Soriano pH (U) 6.0 [pH] Normal 5-9 [facility] Comment on above: Performed By: #### U MICRO, PREGU, ERUR #### [facility] [address] [place] [address] Dr. Venancio Soriano SPEC GRAVITY 1.025 Normal 1.005-<=1.02 5 [facility] Comment on above: Performed By: #### U MICRO, PREGU, ERUR #### [facility] [address] [place] [address] Dr. Venancio Soriano UA PROTEIN Negative Normal NEGATIVE/ TRACE [facility] Comment on above: Performed By: #### U MICRO, PREGU, ERUR #### [facility] [address] [place] [address] Dr. Venancio Soriano UR MICRO IND INDICATED Normal [facility] Comment on above: Performed By: #### U MICRO, PREGU, ERUR #### [facility] [address] [place] [address] Dr. Venancio Soriano Urobilinogen Qn (U) 0.2 {Erick'U}/dL Normal 0.2 - 1. [address] [facility] Comment on above: Performed By: #### U MICRO, PREGU, ERUR #### [facility] [address] [address] [address] Venancio Soriano URon 07-10-2022 , QUAL Negative Normal NEGATIVE [facility] Comment on above: Performed By: #### U MICRO, PREGU, ERUR #### [facility] [address] [address] [address] Venancio Soriano URINE MICROSCOPIC ONLYon BACTERIA TRACE Abnormal NONE SEEN The [facility] Comment on above: Performed By: #### U MICRO, PREGU, ERUR #### [facility] [address] [place] [address] Dr. Venancio Soriano Bacteria identified Cx Nom (U) INDICATED Normal [facility] Comment on above: Performed By: #### U MICRO, PREGU, ERUR #### [facility] [address] [address] [address] Venancio Soriano CAST NONE SEEN Normal NONE SEEN The [facility] Comment on above: Performed By: #### U MICRO, PREGU, ERUR #### [facility] [address] [place] [address] Dr. Venancio Soriano Crystals LM Nom (Urine sed) NONE SEEN Normal NONE SEEN The [facility] Comment on above: Performed By: #### U MICRO, PREGU, ERUR #### [facility] [address] [address] [address] Venancio Soriano Epithelial cells LM Ql (Urine sed) RARE Normal NONE SEEN /RARE [facility] Comment on above: Performed By: #### U MICRO, PREGU, ERUR #### [facility] [address] [place] [address] Dr. Venancio Soriano MUCOUS NONE SEEN Normal NONE SEEN The [facility] Comment on above: Performed By: #### U MICRO, PREGU, ERUR #### [facility] [address] [address] [address] Venancio Soriano RBC 0-2 Normal 0-[address] [facility] Comment on above: Performed By: #### U MICRO, PREGU, ERUR #### [facility] [address] [address] [address] Venancio Soriano WBC 5-10 Abnormal NONE SEEN The [facility] Comment on above: Performed By: #### U MICRO, PREGU, ERUR #### [facility] [address] [address] [address] Venancio Soriano Urine Cultureon 03-02-2022 Bacteria identified Cx Nom (U) Reason for Exam Dysuria Urine No Growth 2 Days PERFORMED BY: [place] [address] PATHOLOGIST [employer] LABORATORY DIRECTOR EDDIE CORTÉS M.D. [facility] Comment on above: Performed By: #### V AGINITIS+ #### [facility] , #### CUU #### [facility] [address] [place] [address] Vaginitis Plus (VG+)on 03-02 Atopobium Vaginae Moderate - 1 Normal . [facility] Comment on above: Order Comment: Reaso n for Exam Vaginal odor Performed By: #### V AGINITIS+ #### [facility] , #### CUU #### [facility] [address] [place] [address] BVAB2 Low - 0 Normal . [facility] Comment on above: Order Comment: Reaso n for Exam Vaginal odor Performed By: #### V AGINITIS+ #### [facility] , #### CUU #### [facility] [address] [place] [address] [place] Makayla Albicans, YUNIOR Negative Normal Negative [facility] Comment on above: Order Comment: Reaso n for Exam Vaginal odor Result Comment: This test was developed and its performance characteristics determined by [facility]. It has not been cleared or approved by the Food and Drug Administration. Performed By: #### V AGINITIS+ #### [facility] , #### CUU #### [address] Makayla Glabrata, YUNIOR Negative Normal Negative [facility] Comment on above: Order Comment: Reaso n for Exam Vaginal odor Result Comment: This test was developed and its performance characteristics determined by [facility]. It has not been cleared or approved by the Food and Drug Administration. PERFORMED BY: [place] [address] PATHOLOGIST [employer] LABORATORY DIRECTOR EDDIE CORTÉS M.D. Performed By: #### V AGINITIS+ #### [facility] , #### CUU #### [address] Chlamydia Trachomotis, YUNIOR Negative Normal Negative [facility] Comment on above: Order Comment: Reaso n for Exam Vaginal odor Performed By: #### V AGINITIS+ #### [facility] , #### CUU #### [address] Megasphaera Low - 0 Normal . [facility] Comment on above: Order Comment: [...] AGINITIS+ #### [facility] , #### CUU #### [address] Neisseria Gonorrhoeae, YUNIOR Negative Normal Negative [facility] Comment on above: Order Comment: Reaso n for Exam Vaginal odor Result Comment: Perf ormed at: =G - [facility] [address] [id number] Hvac R Instructor: Kim Anderson MD, Phone: [phone] Performed By: #### V AGINITIS+ #### [facility] , #### CUU #### [facility] [address] Tric Vag YUNIOR Negative Normal Negative [facility] Comment on above: Order Comment: Reaso n for Exam Vaginal odor Performed By: #### V AGINITIS+ #### [facility] , #### CUU #### [facility] [address] Coding Summary.on 02-17-2022 Coding Summary. [id number] Gh0bWw+PGhlYWQ+PE1FV GFyF18ffMLpsB0XG9dGT E6FTCRGAIFZDJ3FSW8ip HO3WHoyU8QnsnEo PddtjPMbHR41DIw3GFQ6 tNpkIGaidH1zbCFvP8d4 YpGjLV70vD58LXupEZEi IgR9JlXoiildxFUn B5sqClFskICmIwv+PHRh YmxlIHdpZHRoPScxMDAl OjZdyNrcEZ7xBp1wTDYs LWNvbGxhcHNlOiBj m8rfBPAbAJqvMW2qvSfr D3GelFN5PYJxa5x1Ek31 dHI+PEIgAPD9fVxnSJyp t221RuExk8iwYWB4 zHUiKUazIXE5V73fs0V1 BEHeHDYvPGE8kOO3rE6k zCflcxihM6HebRYlXlN1 WNG8pFUwpY9pkOzq lxwowV7tJds+J64LDU4X IFZZPJ1FGqj6O8BrTvpw dHI+AX68VMWvEQ16kKWo mWJrf1zosHd2NdSk TKNuKIY4zKilHZlgi6Vf MGKbQ27igOUou9M7DUCp eCtziLPcCkBrjBR3aN8y LPazihnmh0cqssws Qxwfl1ibdu22cU11I13o DIdpLXXuYVD6XNNwWEXe kGxwua0tnF2fAc2+IDxj n3fxy9inpSp8WkAd NHVbgaCjnFdfRVC6a8Uy Pu40I7MibLung2PzKsq8 li91eXIks4Y5yXO5SByi XYMgoI6aLDvvXkY9 TIYeWxCkhP82jWPiMVoz Gh8lsOfbjQdlAO2eYKWa pbzcSIWbjA5wXCNhmABw rKirWP5zRPWifftd t815IiPaKMJ1ZDEpsDQh A3UawX7mNzHmLXEzIUUh H1JycEFsXTzbA961AHce CiA8MMGoqxJmF6Iv LCQpeRwkNxV9h9R0Qo0U j7YzigczGGO8IYsyXYT9 KuK6KpXfHxF9C2LxAkh7 QGBxhKkvAH7sS4Xe UGVeezmceytmyTX1REYg VJWypX85yHOzJZiyBj2h t3C3n343RPWtBRGqjU96 Ts9ilOxeWTVzfZHD eG5slcuzk7prcecdLhMy WYGwZDh7VBh6NHRpcRur EvYzYCQ5VeS3HEC5vBKg wA7teAjylvjstM0q Oyc+N59ngB3aRUV0ZDX0 kfskKGPuzgJoNO78XC85 H7CmQycxrHRszYK+PGRp epCzdQjxFS4qUkTd f9jbb9WqPZyqW1GnSVYq MYphLsr7JHXrDRI4tMJ3 sG7jGCQsUYlwc6W4pKG8 W7KnagRbhh6sm0qo LFXjBRrtI27xxSJuj5Y1 WBFnrTB9YDPapPasGwQr bT00Ihw+UVMqwSngp8Cg Jwdct5wmy7bllRr2 IjMwJSIgdmFsaWduPSJ0 i3TjAl45K06nJWmpECUp HTXsDXZhOFRktOsfrm8i zZ9iJl9+PGNvbCB3 nJI5vU9vLJInZvY9VEbo K524DeHxxQBxLbhwr2hy v6vsuHy3UeZvRJXoyxWo jQakORJ9k9HcXk83 E77uTCpxCOWdTPEfOBDk ZCJngZovee5gaK8oYy8+ FS7tw1zysd14kT37cVJ+ FVPlAPG8wSgzRPzo NIYugT1zKNbhNoK0ATZq GfVxbF45sUCcTQgfHa3s uPikiFdpVY8xBCHwkczi h020ApOgb3rgJEPe nDMsSQsqRZP5T38vz6B2 KTMqLZDmOLV2zZD0bE2l bGlnbjogbGVmdDsgdmVy bJmvVCvdRDgrJ665 IHRvcDsnPlBhdGllbnQg GlXvTCl6R2JdGah6XLNs uUprCR0pcSIhKFblYk9j yHhpqQobWR6aMKJr qgryd133ZbZxe6tnDIOn xHAxKTfqWMK6L07yx5Z1 CDEkYUFmJTS5bLS7vA8x bGlnbjogbGVmdDsg pfKktWivDXwlAKkuF537 IHRvcDsnPkJpcnRoIERh dMO6EZ29KB59xAQou9L2 mUT7S2DpSTMfinss hooxkTI5RJCyJBZdzX49 Cd0yyJwsVj8rPAYzQEH7 GRHvgQTtP5GvjV4qYmLz CBCtSVAoF4RsgQVr AJjgD324QIhuQbA2WMGr sbXrR8AhCANilXakPrF1 z6S1Mw9JL4W8KX20YN99 yZFvd4O8gUJ8N0Wq YXXubkpqeryzxMA7NWKc ZJIjdO94Vl0btBgsHg6z PWZnXNZ6VDMphJYsT3Bb sV3uDoMhYIIcDIVy B5WmjVHnOKerT908XZgp TyK5MCEuceZjS9ZpQLDa sWhsTzA0o0V4Ff2ZOJa1 SJ92YJ86wUWqx1E6 mNP2S7QvIOZjmzmpnxwi zQE5JRDzREQlrB24Am2r kZwfDs1ePKOeRBZ6GWDb vSMhD2QveD4kFuZj NCCxFHBrY1FhxHWwZJak Z013YGadKgI2GLZefiPy Q4KxTZAptSckIfW0m7A6 Tz5XEFKaOF28DLW0 wJE3TG89RC98V4XzLvos dGFibGU+PHRhYmxlIHdp ZHRoPScxMDAlJyBzdHls CA7gHl0kAPQuRSPa eKsleTXrAtKso5acDMYu TXmbZV1buJtgN1JgxDS4 SXSrj1f2Cb20S70zE6Bz dXA+BBQgtCK5uJO3 nR0wQoFpImI5WWqaE840 WoFtsWDpVjtjv1jie1qb rJn3KxQ3XFOcapAicLgr ZZT3t3QaYl53G09n IHdpZHRoPSIxNSUiIHZh oZufpb0avX0lIc0+PGNv zPE3lOJ9rO5aTlAsFdR1 UWwwU738FxLwxDWv Fnxwg6ezi1kdrBf5RoXs LKQakzMmhXazCNP6b7Xy Nf38K9PseVupt4GeZmm0 ls03uWUcf1X8lOQ6 S6FpKQKygdyhjABdfItq DJ2hSBUyqhzoEGLvcK6i ISOsK3p0CeJpKeO5LJip T9QvwzY1PNOowIJz PJiaTTH1X47as9I3EGSo ZCVgONF4gUH4mJ9wgJth bjogbGVmdDsgdmVydGlj VAxnKZwpO901CPQp gOueBNPyrS5qAEXbqBTs iJxiYH5gBSVxjtfqIvYC FOhHWJnnJ7BSCVnZOefO ZV55ZA27tCLlx5X6 yXF1N9PoISQfdcmucznw uAB7MHUyXOWymI75cQUy FFykSp6yd4O1k382YJTw JAPhvB83Jq1dhFqs ARJuuFEAvI7usjvnt2dj kqbtQwKuYNTlYGn5YAu1 BPQxtTmuPcEiZFW2ZwV1 EDF7dGJhiK4xmMcb ypvnkP3pYxx+MDIvMTkv MjAwMzwvdGQ+PHRkIHN0 sSqkFCikLJGwdY2wCAIs O8h1TnSaFqY9BZkf S0NsRTJmsosvVv86yQ8h ZnYgUxZ2ZTmbD3ZgzyT6 SPUukUTiBXsbNJM1N41s a2S9TQDiANXjPMH9 uOE0iF1zqGrvxzwubLPt dDsgdmVydGljYWwtYWxp X578UCQmfQnqLbJ6XZbr BUUwPB00YS58xACq l9K8qJK1C2PpYCTiwdet mltflNL2LVFeFVWxoW63 uYKgULflPk4sm7R5s215 JFYdCMPkpY06Mu1v jOsgIINqaPEIsX3decyt c5biwiciLkHySTCeQLm6 RPm2QRXkjOxaNzUsNRS1 WnY3DKR7oTLysJ4j sGqwimvbeE0kPrj+RmVt MAlzQB35GB44fOOwa3G9 vJR0J2FvWQDlfnlcwamj pTF2XVNjQZOuwT40 oYJmWArdKp7bh2R6r052 MENxVLUtqG64Ht5czEii EXUmgWBOmY2duwdre4qy cjogIzAwMDAwMDt0 JWu7LJIlsOnlFtRdAUV6 MlU0DES7kOVixY4pdVmw zwnzjF4aYtm+QG4udjwr doR4YH77WE19L7Vh PjwvdGFibGU+PHRhYmxl IHdpZHRoPScxMDAlJyBz uDepJK7dXl0hWBDeKSYv dAkubQKyFhYfy3yw LTCwRWfuCL4fsGirE4Xu wSB3TFNao0b0Ms13N21b V6OdqNX+NZPezVZ3xIQ6 sB9mJeQeDeA6ECnu N314MiCyzUMrNhele6mx d8sofTn8MtVjCUBskqAg sSmoEVD8z0KyXs14U69b IHdpZHRoPSIyMCUi JFUayBklev7woB7sZn7+ VSCtoJK5aNP0dG7xMqHl GlD5BPedT868MfEbmJNa KdshG88eS5WwxYI+ LNXwFmd1XJMrmXujEB9i qCIgMTyyXn2yJZH3OjZf IaOaAAhrW8BdKBUxfitq wvrboVO3TNViIWRc hT15Gh9erXxpHp9hIYQa APC7BWMmlVMvZ1IchC6j YqMjFQEiYEEbZ6BgdZTt COnrE684EBzcPgI1 XWRdhxMaN9JcCFSrnOqv YlY3r1X3Kk6OlDzcrZHe SB9qRmRjUUe1W3NaBuv6 SQJtmGvoGE1drSHt UJwfKq2yxTuvlXmtTC7c SPLiygtcp569JwIsb5mo CEUxxEImGImfSXW9E38s g3H2LPMvGSNwMDU9 rRR7xW8qrZfunwfrjYJb dDsgdmVydGljYWwtYWxp C273DOSvcNwnBgEIKid4 C7AhZoc1YVVwdIko RQ6qzWIgVSfdIi6gmYoo hJxbHD4nHFCavrjrz999 MrBzy5enJARmyFHeIYmc ZTL0B44un5U2QKHh LALnVTA9tQJ4kE0rwIzv bjogbGVmdDsgdmVydGlj JGdjSYodX288VUOogKdu Ot3YVvg9D7GtOli1 QMVwrHnzLE2qpFXmVOrz Hx6xdCyzbZcvSI0fATSp wamdu345DbLes4deHLWp oSTxLDlvOMR5C88g g4G6ZMFiNNEoQYA4fAY2 zP4gmPhlivcdfGNskQui tuPklUqjPWylSCyeW036 IHRvcDsnPlBheWVy OjwvdGQ+TJ08pl22X1Zn IkreJpx6DJDqTPJ6fHG2 xT7oIMSuTFykg7F8gNT9 M5LrrrGdfh5em7hl YXBz (more content not included)... Normal [facility] Auto Diffon 02-13-2022 Basophils/100 WBC (Bld) 0.9 % Normal 0.0-2.0 [facility] Comment on above: Order Comment: Order Added by Discern Expert. Performed By: #### 2 [id number] ####[facility] [address] [place] [address] Basophils/Leukocytes Auto (Bld) [Pure # fraction] 0.1 E9/L Normal 0.0-0.2 [facility] Comment on above: Order Comment: Order Added by Discern Expert. Performed By: #### 2 [id number], [id number] ####[facility] [address] [place] [address] Eosinophils/100 WBC (Bld) 0.6 % Normal 0.0-8.0 [facility] Comment on above: Order Comment: Order Added by Discern Expert. Performed By: #### 2 [id number], [id number] ####[address] [place] [address] Eosinophils/Leukocyte s Auto (Bld) [Pure # fraction] 0.0 E9/L Normal 0.0-0.5 [facility] Comment on above: Order Comment: Order Added by Discern Expert. Performed By: #### 2 010799, 3567606, 77547472, 5786574, [id number] ####[address] [place] [address] Lymphocytes/100 WBC (Bld) 46.4 % Normal 14.0-50.0 [facility] Comment on above: Order Comment: Order Added by Discern Expert. Performed By: #### 2 503006, 1799888, 33925605, 8404762, [id number] ####[address] [address] Lymphocytes/Leukocyte s Auto (Bld) [Pure # fraction] 3.1 E9/L Normal 1.0-4.0 [facility] Comment on above: Order Comment: Order Added by Discern Expert. Performed By: #### 2 747671, 2273042, [id number], 2161884, [id number] ####[address] [address] Monocytes/100 WBC (Bld) 8.2 % Normal 4.0-14.0 [facility] Comment on above: Order Comment: Order Added by Discern Expert. Performed By: #### 2 037356, 4195939, 07378927, 8410887, [id number] ####[address] [place] [address] Monocytes/Leukocytes Auto (Bld) [Pure # fraction] 0.6 E9/L Normal 0.2-1.0 [facility] Comment on above: Order Comment: Order Added by Discern Expert. Performed By: #### 2 601456, 9950947, 33573902, 2338350, [id number] ####[address] [address] Neutrophils/100 WBC (Bld) 43.9 % Normal 36.0-75.0 [facility] Comment on above: Order Comment: Order Added by Discern Expert. Performed By: #### 2 892331, 3721219, 41379306, 0819520, [id number] ####[facility] [address] [place] [address] Neutrophils/Leukocyte s Auto (Bld) [Pure # fraction] 3.0 E9/L Normal 2.0-7.5 [facility] Comment on above: Order Comment: Order Added by Discern Expert. Performed By: #### 2 743129, 7046163, 63752750, 1399784, [id number] ####[address] [address] BB Draw & Holdon 02-13-2022 BB D&H Sample drawn for Blood Ba Normal [facility] Comment on above: Performed By: #### 2 409111, 7663410, 17640306, 2554774, 16406958 ####[address] [address] CBC w/ Auto Diffon Erythrocyte distribution width (RBC) [Ratio] 13.3 % Normal 10.9-14.2 [facility] Comment on above: Performed By: #### 2 148729, 8821333, 52004308, 7123076, 91465154 ####[address] [place] [address] Hematocrit (Bld) [Volume fraction] 34.1 % Normal 34.0-46.0 [facility] Comment on above: Performed By: #### 2 913441, 9715114, 80499839, 8100641, [id number] ####[facility] [address] [place] [address] Hemoglobin (Bld) [Mass/Vol] 11.7 g/dL Low 12.0-16.0 [facility] Comment on above: Performed By: #### 2 090444, 7686369, 15290222, 5705301, 90152905 ####[facility] [address] [place] [address] MCH (RBC) [Entitic mass] 29.9 pg Normal 27.0-34.0 [facility] Comment on above: Performed By: #### 2 346056, 8123078, 30275491, 9696121, 83715230 ####[address] [address] MCHC (RBC) [Mass/Vol] 34.4 g/dL Normal 31.4-36.0 [facility] Comment on above: Performed By: #### 2 132852, 5091208, 83155867, 7630315, 67504293 ####[address] [address] MCV (RBC) [Entitic vol] 86.8 fL Normal 80.0-100.0 [facility] Comment on above: Performed By: #### 2 136504, [id number], 04530573, 2560682, [id number] ####[address] [address] Platelet mean volume (Bld) [Entitic vol] 7.9 fL Normal 6.4-10.8 [facility] Comment on above: Performed By: #### 2 542157, 2113181, 47001377, 0960631, 72734498 ####[address] [address] Platelets (Bld) [#/Vol] 329.0 E9/L Normal 150.0-500.0 [facility] Comment on above: Performed By: #### 2 322950, 3638783, 01386807, 8492866, 79673443 ####[address] [address] RBC (Bld) [#/Vol] 3.9 E12/L Low 4.3-5.9 [facility] Comment on above: Performed By: #### 2 346968, 9582843, 48055264, 2709780, 45594332 ####[facility] [address] [place] [address] WBC corrected for nucl RBC Auto (Bld) [#/Vol] 6.7 E9/L Normal 4.0-11.0 [facility] Comment on above: Performed By: #### 2 631075, 4565883, 70490568, 1376998, 75166800 ####[facility] [address] [place] [address] CHEMISTRYOrdered By: SYSTEM SYSTEM on 02-13-2022 Albumin [...] rate/Area] mL/min/1.73 m2 Normal >=59mL/min/1 .73 m2 [facility] Chem S GFR/1.73 sq M.predicted among non-blacks MDRD (S/P/Bld) [Vol rate/Area] mL/min/1.73 m2 Normal >=59mL/min/1 .73 m2 [facility] Chem S Globulin (S) [Mass/Vol] 3.2 g/dL [...] 14 mg/dL Normal 5 - 21 mg/dL [facility] Remisol Urea nitrogen/Creatinine [Mass ratio] 35 mg/mg High 10 - 20 [facility] Remisol CMPon 02-13-2022 Albumin [Mass/Vol] 4.3 g/dL Normal 3.3-5.0 [facility] Comment on above: Performed By: #### 2 361701, 1658911, 96467721, 8781332, 46494349 ####[facility] [address] [place] [address] Albumin/Globulin (S) [Mass conc ratio] 1.3 Normal 1.1-2.2 [facility] Comment on above: Performed By: #### 2 924704, 0828952, 38816431, 0336749, 52012967 ####[facility] [address] [place] [address] ALP [Catalytic activity/Vol] 55 Int._Unit/L Normal 21-98 [facility] Comment on above: Performed By: #### 2 426903, 4731779, 61669844, 8461496, 35097455 ####[facility] [address] [place] [address] ALT No additional P-5'-P [Catalytic activity/Vol] 12 Int._Unit/L Normal 6-46 [facility] Comment on above: Performed By: #### 2 911116, 2828022, 00862971, 4787530, 51278953 ####[facility] [address] [place] [address] AST [Catalytic activity/Vol] 15 Int._Unit/L Normal 5-43 [facility] Comment on above: Performed By: #### 2 148652, 4787476, 11290028, 9570743, 83116443 ####[facility] [address] [place] [address] Bilirubin [Mass/Vol] 0.4 mg/dL Normal 0.0-1.1 [facility] Comment on above: Performed By: #### 2 821033, 2084991, 35885970, 2482217, 07597148 ####[address] [address] Creatinine [Mass/Vol] 0.4 mg/dL Low 0.5-1.3 [facility] Comment on above: Performed By: #### 2 351820, 1271299, 67747311, 3349596, 11841441 ####[facility] [address] [place] [address] Globulin (S) [Mass/Vol] 3.2 g/dL Normal 1.4-4.0 [facility] Comment on above: Performed By: #### 2 297024, 1990835, 40095829, 1856451, 06480437 ####[facility] [address] [place] [address] Protein [Mass/Vol] 7.5 g/dL Normal 6.0-7.8 [facility] Comment on above: Performed By: #### 2 708485, 6237547, 92334487, 6622704, 98643010 ####[facility] [address] [place] [address] Urea nitrogen [Mass/Vol] 14 mg/dL Normal 5-21 [facility] Comment on above: Performed By: #### 2 688960, 3616326, 47535322, 5861366, 12933622 ####[facility] [address] [place] [address] Urea nitrogen/Creatinine [Mass ratio] 35 No Units High 10-20 [facility] Comment on above: Performed By: #### 2 933980, 9254820, 21241496, 2556780, 78266790 ####[facility] [address] [place] [address] Anion gap [Moles/Vol] 10 mmol/L Normal 6-16 [facility] Comment on above: Performed By: #### 2 807595, 6223126, 19304265, 7746199, 98398670 ####[facility] [address] [place] [place] [address] Calcium [Mass/Vol] 9.2 mg/dL Normal 8.9-11.1 [facility] Comment on above: Performed By: #### 2 795604, 7544730, 86607770, 7296374, 71276700 ####[facility] [address] [place] [address] Chloride [Moles/Vol] 107 mmol/L Normal 101-111 [facility] Comment on above: Performed By: #### 2 192168, 7754263, 87292742, 1437043, 17518009 ####[facility] [address] [place] [place] [address] CO2 [Moles/Vol] 23 mmol/L Normal 21-31 [facility] Comment on above: Performed By: #### 2 631872, 4839394, 67816100, 6581665, 12821804 ####[facility] [address] [place] [address] Glucose [Mass/Vol] 87 mg/dL Normal 55-199 [facility] Comment on above: Result Comment: If t his glucose result represents a fasting glucose, interpretation should refer to the following reference range: 55-99 mg/dL Performed By: #### 2 282967, 3795585, 56123952, 9860099, 12872272 ####[facility] [address] [place] [address] Potassium [Moles/Vol] 3.8 mmol/L Normal 3.5-5.3 [facility] Comment on above: Performed By: #### 2 442457, 1386301, 40094568, 5901107, 45108292 ####[facility] [address] [place] [address] Sodium [Moles/Vol] 136 mmol/L Normal 135-145 [facility] Comment on above: Performed By: #### 2 653741, 6358241, 22788861, 3405708, 43416705 ####[facility] [address] [place] [address] Consent for Treatmenton Consent for Treatment [id number] 20 [id number] #1.00CD:127 Normal [facility] Discharge Instructionson Discharge Instructions [id number]# 1.00CD:127 Normal [facility] ED Clinical Summaryon 2021 ED Clinical Summary [place] [id number] ED Clinical Summary Person Information Name: MARIBEL VELEZ/[facility] Age: 21 Years : 2000 Sex: Female Language: Libyan PCP: CAITIE MARSHALL CNP Marital Status: Single [...] 02/13/2022 07:28:36 02/13/2022 07:28:36 02/13/2022 07:28:36 ADDRESS: [address] [facility] [id number] PHYS DOC NOTES: Addendum by Kevin Santoro DO on February 13, 2022 07:22:06 EDT MEDICAL INFORMATION: Prescriptions Given: New Medications [id number], [address], [place] [id number], [phone] pramoxine topical (ProctoFoam 1% Foam) apply By rectum 2 times a day for 7 Days. Refills: 0. Medications to Continue with No Changes Other Medications ethinyl estradiol-norgestima te (Sprintec oral tablet) Ib By Mouth every day. ibuprofen (ibuprofen 600 mg Tab) 1 Tablets By Mouth every 6 hours as needed as needed for pain. PATIENT EDUCATION INFORMATION: Instructions: Rectal Bleeding, Ncqk-ex-Nrpi; Hemorrhoids, Cota-bd-Brro Follow up: With: Address: When: [facility], [address], [place] [address] Business (1) In 3 days 02/16/2022 With: Address: When: CAITIE MARSHALL In 3 days DIAGNOSIS: Acute hemorrhoid Normal [facility] ED Note-Physicianon 02-14-20 ED Note-Physician Basic [...] change or worsen. Diagnosis: Rectal bleeding Normal [facility] Comment on above: Result Comment: Elec [...] 02/10/2012 Document Revised: 05/13/2018 Document Reviewed: 07/26/2016 [facility] Patient Education ? 2019 [employer]. Hemorrhoids Hemorrhoids are swollen veins that may [...] times a day. General instructions ? Take nrtf-eqy-xvlzzdv and prescription medicines only (more content not included)... Normal [facility] ED Patient Summaryon 022 ED Patient Summary [address] [address] Patient Discharge Instructions Person Information Name: MARIBEL VELEZ Age: 21 Years Arrival Date: 02/13/2022 06:16:54 Discharge Diagnosis: Acute hemorrhoid Primary Care Physician: CAITIE MARSHALL CNP Provider Information Primary Provider: Ana Braxton DO Advanced Supervisor Slashing Department:None The exam and treatment you received in the Emergency Department were for an urgent problem and are not intended as complete care. It is important that you follow up with a doctor, nurse practitioner, or physician?s pharmacy technician assistant for ongoing care. If your symptoms become worse or you do not improve as expected and you are unable to reach your usual health care provider, you should return to the Emergency Department. We are available 24 hours a day. MARIBEL VELEZ has been given the following list of patient education materials, prescriptions and follow-up instructions: Follow-up Instructions: With: Address: When: [facility], [address] [facility], [place] [address] [facility] (1) In 3 days 02/16/2022 With: Address: When: CAITIE MARSHALL In 3 days In the event that this physician does not participate in your insurance network, please consult with your insurance company to find a nearby participating provider. Patient Education Materials: Rectal Bleeding, Rjji-wy-Ysxv; Hemorrhoids, Aowd-uv-Qfeh A MESSAGE TO ALL PATIENTS REGARDING OPIOIDS PRESCRIPTION OPIOIDS: WHAT YOU NEED TO KNOW Prescription opioids can be used to help relieve uekpanuk-ln-sankvk pain and are often prescribed following a [...] care professi (more content not included)... Normal [facility] HEMATOLOGYOrdered By: SYSTEM SYSTEM on [...] 86.8 fL Normal 80.0 - 100.0 fL [facility] HemeAutoSS Platelet mean volume (Bld) [Entitic vol] 7.9 fL Normal 6.4 - 10.8 fL FT HemeAutoSS Platelets (Bld) [#/Vol] 329.0 E9/L Normal 150.0 - 500.0 E9/L FT HemeAutoSS RBC (Bld) [#/Vol] 3.9 E12/L Low 4.3 - 5.9 E12/L FT HemeAutoSS WBC corrected for nucl RBC Auto (Bld) [#/Vol] 6.7 E9/L Normal 4.0 - 11.0 E9/L FT HemeAutoSS eGFRon 02-13-2022 GFR/1.73 sq M.predicted among blacks MDRD (S/P/Bld) [Vol rate/Area] mL/min/{1.73_m2} Normal >=59 [facility] Comment on above: Order Comment: Order added by Discern Expert. Result Comment: eGFR is race adjusted. AA=. Performed By: #### 2 570993, 5005296, 96455481, 3830347, 62491058 ####[facility] [address] [place] [address] GFR/1.73 sq M.predicted among non-blacks MDRD (S/P/Bld) [Vol rate/Area] mL/min/{1.73_m2} Normal >=59 [facility] Comment on above: Order Comment: Order added by Discern Expert. Result Comment: Neonatal Icu Coordinator linwood kidney disease could be indicated at eGFR's of less than 60 mL/min/1.73m2. Kidney failure is indicated at less than 15 mL/min/1.73m2. Performed By: #### 2 331258, 7899535, 65427920, 7555481, 87912065 ####[facility] [address] [place] [address] Coding Summary.on 02-06-2022 Coding Summary. CD:[id number] Gh0bWw+PGhlYWQ+PE1FV MPhY09chHBneM2LC5iHF S5WXCQBFOIBLH7VXQ4fo CS1NJhkO6NqnuBx KsoaaYFlYX68PCr4CFO7 aJjaYZhyyL5dpRGnQ9f5 SgNyMR16uZ45OYscHVVp RmR3HbOvtvyrqTQz R6vzYtFhoWRgWwp+PHRh YmxlIHdpZHRoPScxMDAl TfWfsCqgWL9wRz8wGBIw LWNvbGxhcHNlOiBj v2xcAKXkNYjbHS1mrWeg G3GymPW6QMPmh3i4Ai04 dHI+VJKaHFN2xWaxLDbv x285SfIfb6vfOKL0 yMKvIQrhVEP2V20sw2E9 XUChTZKgVEJ0zSX6iY0z oCsvxxztT7CoyFFuOnI8 YHS4qIAseS5eoDrn uzckiW9mHez+P58KHZ0W WUXHEC4GOpn3K6OjTadf dHI+DD89RAUoVS20lETe eZKba1xluCo3JwYn SQVuUOQ3cWegMPxdd9Sa XOPpD23lcQIiv5E1BTDx wYevrSImWhIrxKL5jL3n KPjtozxwq8eyynjf Rwugy0lvbl18mK81I97o VCpzMEPdYNM8FFXcIAOf tVbdae9knT4vSh4+IDxj f6lxl3lwqDm7XwRq EWMpotUwtVfxIEO6m9Tw Eu41X3ScbUmhv7JiPun0 pz25aAMhz1V1vGK1JJje TESinV1bVWwoInQ2 DXOlQyAcdY68bTOdNAzw Wy4qtVhobIkpUA4vOYZv wptbHWGwgM0xQUMtcKHh xHehHQ5aZBYdbdds p356YjOnUYT3CLBszWHv O3BjsO2bAdAhWXHbGGHl P4XrnXAcBAvqJ713YSqe OqK9IALyrwPlG4Kb KUYlxLyjPbT5o6E0Cw1B u6TueiaeBYU4EVnxSOK3 FxX1KvMlJuD3A1OhJke2 RVHjmCxsPU7xF8Fm VXYacmjgwkjkjQE9OMVd XOUxqG75uVMbPFieCb0z q5Q7o000YRDxYGGyxR83 Ww2xnDstUXBymMZR fP0cbzwdk8sxhtegQiUz PFZhKSj1MAw2BWHukGdx GuJyESA8ZjZ4WYJ2vLUu jR9kuGopjvyqwZ0k Oyc+E56nuV3rPBD7YZI8 irzpWRWgngVgBT16RF63 D4SzEvwpvLTveTQ+PGRp zcZkvJlnIU0bKkFt m8xmv6FdTIpdS5JaVAPb QWvcSoq7YOQfZMT4xHL9 hN0uWKEfWXzna9V0xOV3 D2HgqlLyxp9wx6su TFBfGYosK44jmIOco9W3 UKBclTK9ZVKewYtaFzAt iZ65Alt+YLRggVgxf8Od Ybnih6hah3sidFp6 IjMwJSIgdmFsaWduPSJ0 q6JbMe85S90oBNajYAWc ESEcECZcAYSqyOofei2o rM1oHm3+PGNvbCB3 kST6pH5lAPRhXaO5UNxn T572UoYmiCUoFdjxn4ky f1scxQu5XtQgTJQlzsWp cZjpQMB9u8BiEu91 V52vAMwxFBYoCJGnFOPx UPLqzKkvtw9uxT8lSk6+ KV8ss1udon08uS48eGS+ BXQlIIB5rNdzUEgk FXBhbB9oMDggEtC2SLDb XoOzwP53rHNoLErtGl7j jXtshFewEH5tHSUcmook y872ZpVyu5lsWEAq cOIhYDhdLHE5Z04wf0L6 ETLkWTFtEIL3tRO2fU8a bGlnbjogbGVmdDsgdmVy kHqvYVueCNtqK602 IHRvcDsnPlBhdGllbnQg TgOhWJa6D5JbPda0OVKw yBncBK9ebLZxCMqsMl6g lAjpaDtrEF4tPZUj jqkrd289DjYjt2juWBXk iYTlUVlrOHS6A91ll8L1 HFWeMMNlKCI1cRF4lH7l bGlnbjogbGVmdDsg uxSjhRnxKYprJUgiY286 IHRvcDsnPkJpcnRoIERh ySX0SJ34AB44lGZgr8Z7 tHA9D9RpSQOgzybn ginscXD7ENYwMNEowD51 Kd6jwGmgJx2xPJBnMZA5 QIIwvZYiU0GtlP4bLcAz DFXoXWReF7JgkJOe PUacZ842YHbtOpC5WSYd afEyJ5QbWNHxuIlsJkT8 b5U0Lj1BZ7B7AE05TS41 sAThk1O4bQV3M0Ag FJGufewtigfheFD2JDPm KQTjeQ86Wb8tyZvrPq2s JRSsEDK4KNTxxDUoG7Ox lA0xBcOwHFVtGSSy K3GliSZnPRhiU419LQqu VwC1IUJxnuDzK4DoSZVx lZmtClD2t3Y7Gn7BDWi7 KG38OR24eSPvw5G7 zGG4W5NtFLIlohnqffvi rMK4DSMfUTGtuO21Jk0k qTghGl5kAYZjLYX4IWMs kJStY1EiyT7dAcDd WTWrFAPbT3VfwBMgZCpv X590NTfbHrD2HTNmbsDy B2NaGVIeqUegWmV6e9I4 Fs0OKONrIQ64JDD7 wTH5VT48VI91P7FnMpac dGFibGU+PHRhYmxlIHdp ZHRoPScxMDAlJyBzdHls BX5yIe4iEPSaZJWs hBusrTMmNkUrq6shRZBp STqvKW5uuVzaM0WslDE9 WIJef7r2Qv58Y75bD7Dw dXA+VJTxyCM1mUP2 cL9nWpDiPeF0LVwbI945 CgPckUHoIlkss9cya3yi iEj2ApV6SDYljwQvwIce MLQ4g0RqYc11E96k IHdpZHRoPSIxNSUiIHZh lFcejh2agN1fXd9+PGNv uSM9lND6lI7rMdOzWcI0 UWvnM417WkWtsYDz Amizl5fsh5sjqVk3RvFa ONShccMtyYzbXDE3o2Kr Mz24M9WtfXunu5DdPqs7 fo61gFZfl2X6wLV7 I3XlJBFdsiirmDAyuCbp TS3tABZvupbpZPSfhM2m ELWgE6f3XcSbPbN6CRzu I8SydvA2RMGwoBEm FKdaNWH7Z16ln4Y4QITy OSFsJCN5jCI4bI4kdKzb bjogbGVmdDsgdmVydGlj UHobFWkvP347SHZu gDtoMLJzgC5qZKBtiJUa eVcvLD6bVWKyxufqMrVX RQzHJQgvC6EQTDyQSjiX XJ01QP90iTVlq2L9 tCY5R1RtJMScctgpcbid oNA9NLHkNRJxmW86zOQx GEeuSc5cc7B6i032KITj GCTifM67Ih6fxEdp EVPetKZMyD5hjycll9yx hxenStKgAYHyDTq5NJh5 IWNhcUnyEyNxWJF9RkA0 YTM6vHUawN4ouRjj mrglaE5yTix+MDIvMTkv MjAwMzwvdGQ+PHRkIHN0 pDljGLczFXZzzT3sPAIw I8y4EfNqEbR5NCac W2MnKXLzdlzxTy24zV3r SmUkSvZ7CBawP0XubvQ0 BTWfeEFsQMwrQSQ0R54f j0B7CKRyCDEmOUP2 xYB8aJ0dgLkytdsndDLh dDsgdmVydGljYWwtYWxp F520WDTbrOtaClT1XTja RTFpYK82OT62xPEt s8H3jSU5U4IiJBSwsgdo kgcbzQM6ZXSrNSLzaT79 yRFmAJnvBs0sk0E6j003 ARJjQCFitV64Zo8h nXbxBQOpgHIGrY2ekvsg y0kqycuhIfRjXAAsWIg0 ZDq4DGKyzOiaSkPbWUZ7 FnM9HZB4kCWwgF1q fZuxyxbtsX4oAbt+RmVt QTvhTK70AS86lGLyj5M5 tTR5P6HgKPNqncdixbxy pOH5RMUsJBUugQ50 wZKqFPzqVg5wl5L1p659 XAFtPYMmsO45Ar3pkZel HSQshFPFuJ2mjcgsd7fc cjogIzAwMDAwMDt0 YCx7KLOyyFrgTcNtDDU2 WmP3DHA7uNKmaX0ysIzs qnuslO7tJqr+J1H3wRR7 aWVudDwvdGQ+PC90 tt41O7BpFrsaEdy4AUQh JTZ9iWQ8uY1cBEYaMZgc p0M5ePZ7K0SdgpYwod1c l0ofZKLnMEutD75f oEIak8E5IUQkyZS3SGQm pVywVnTltL88Ski+PGNv yCxuz4OqOqqow7xne7pm wUp3YvJyVHUmsaLj jFroXMJ4j2MjDd52U59x IHdpZHRoPSIzMCUiIHZh tDzxjz4qsS1bZe7+PGNv yTN0oMK1vH9vNeYy LhD7TQmnY546OiVndBAv Mtwxr1xrg9nsdLq3GaKn PMBsupZphRivEQE3s5Fp Bc92F0EgdLlhv0Xv Uxl4un45oUYzd5D4cJC3 K1JcDWYqgobghAHgcUqy KO1yWANlxwivHDAwwH4q TCTtE2p6QnIcIqY5 GXywZ3NmdyM0TAZvnUGb UNJrqWVSsE7pkwyww1ib hsnlAdUuYAZxIMy5VTj2 LWFsaWduOiBsZWZ0 CeX6BVH4nHJtsA9vrXas fhhifU5cCvm+USt6i3gu zMKrXC7ykEQ0KI46MP60 aJQux9X9vDA6S8Mc HSSoupbehoxkiNY4UPBa ZPOmmC36Ee1vdOdbJg0b CDKnJGM3OPHsvVZvB0Bu uI8bJcTeQGSzMQPm N8EjlJAxKMqtV652YNux JmR6HFQvufRoY4LwNJRt dLlkGvZ3y0L1Ms9YTI89 KL72BQ30mBWlq3I6 tKB0L2RbUDHzhxlvloxe bLD5IDNoKTCjwS18Xi0o bDpoGg4yYOMoNBN1YJDw tGWoY0GmrT4rYsRc GDFbMLEjM8KgdXGnMEpw X566UAvfTeR7BYMyprLw V1YtXINgsWrtZuS0r8O9 Dw2GEx69KS57DI44 lRUcd0B1nQV3L8PbQHGv aanwopufeEL2LTSyMLJr vU08In8leOooAw9hRPKp XDT5RZTxwXAsE9Rc dJ7bZkBlVNSkELHpS8Vd aRDiGOrcZ774MIqsFqM1 VIYphjQvI3TgKVJfdCvr UpA3r3W0Hh3WXKtm azi6K3HaNnbmdIQ+PC90 DFQuKB60zOXmhJUdc9fr wMx9QmVzXQNpIQU1dSda YGhcm6FdYSCeA54z bGFw (more content not included)... Normal [facility] Consent for Treatmenton 01-13 Consent for Treatment [id number] 20 [id number] #1.00CD:127 Normal [facility] Physician Orderon 02-03-2022 Physician Order [id number] #1.00CD:127 Normal [facility] XR Shoulder Complete Righton 02-03-2022 XR [...] Reis M.D. Transcribed by: CHRIS Technologist: JULITO Normal [facility] CBC AUTO DIFFon 01-15-2022 BASO # 0.0 103/ul Normal 0.0-0.1 [facility] Comment on above: Performed By: #### C BC #### [facility] [address] [place] [address] Dr. Venancio Soriano Basophils/100 WBC (Bld) 0.6 % Normal 0.2-2.0 [facility] Comment on above: Performed By: #### C BC #### [facility] [address] [place] [address] Dr. Venancio Soriano EO # 0.1 103/ul Normal 0.0-0.7 [facility] Comment on above: Performed By: #### C BC #### [facility] [address] [place] [address] Dr. Venancio Soriano Eosinophils/100 WBC (Bld) 1.3 % Normal 0.9-7.0 [facility] Comment on above: Performed By: #### C BC #### [facility] [address] [place] [address] Dr. Venancio Soriano Erythrocyte distribution width (RBC) [Ratio] 12.8 % Normal 11.0-15.0 [facility] Comment on above: Performed By: #### C BC #### [facility] [address] [place] [address] Dr. Venancio Soriano Hematocrit (Bld) [Volume fraction] 36.5 % Normal 36.0-48.0 [facility] Comment on above: Performed By: #### C BC #### [facility] [address] [place] [address] Dr. Venancio Soriano Hemoglobin (Bld) [Mass/Vol] 12.2 g/dL Normal 12.0-16.0 [facility] Comment on above: Performed By: #### C BC #### [facility] [address] [place] [address] Dr. Venancio Soriano IG # 0.01 10e3/ul Normal 0.00-0.03 [facility] Comment on above: Performed By: #### C BC #### [facility] [address] [place] [address] Dr. Venancio Soriano IG % 0.2 % Normal 0.0-0.5 [facility] Comment on above: Performed By: #### C BC #### [facility] [address] [place] [address] Dr. Venancio Soriano LYMPH # 2.7 103/ul Normal 1.2-3.[address] [facility] Comment on above: Performed By: #### C BC #### [facility] [address] [place] [address] Dr. Venancio Soriano Lymphocytes/100 WBC (Bld) 42.9 % Normal 20.5-60.0 [facility] Comment on above: Performed By: #### C BC #### [facility] [address] [place] [address] Dr. Venancio Soriano MANUAL DIFF REQ NO Normal [facility] Comment on above: Performed By: #### C BC #### [facility] [address] [place] [address] Dr. Venancio Soriano MCH (RBC) [Entitic mass] 29.4 pg Normal 26.7-34.0 [facility] Comment on above: Performed By: #### C BC #### [facility] [address] [place] [address] Dr. Venancio Soriano MCHC (RBC) [Mass/Vol] 33.4 g/dL Normal 29.9-35.2 [facility] Comment on above: Performed By: #### C BC #### [facility] [address] [place] [address] Dr. Venancio Soriano MCV (RBC) [Entitic vol] 88.0 fL Normal 81.0-99.0 [facility] Comment on above: Performed By: #### C BC #### [facility] [address] [place] [address] Dr. Veanncio Soriano MONO # 0.5 103/ul Normal 0.3-0.8 [facility] Comment on above: Performed By: #### C BC #### [facility] [address] [place] [address] Dr. Venancio Soriano Monocytes/100 WBC (Bld) 7.2 % Normal 1.7-12.0 [facility] Comment on above: Performed By: #### C BC #### [facility] [address] [place] [address] Dr. Venancio Soriano NEUT # 3.0 103/ul Normal 1.4-6.[address] [facility] Comment on above: Performed By: #### C BC #### [facility] [address] [place] [address] Dr. Venancio Soriano Neutrophils/100 WBC (Bld) 47.8 % Normal 43.0-75.0 [facility] Comment on above: Performed By: #### C BC #### [facility] [address] [place] [address] Dr. Venancio Soriano Platelet mean volume (Bld) [Entitic vol] 9.5 fL Normal 9.5-13.5 [facility] Comment on above: Performed By: #### C BC #### [facility] [address] [place] [address] Dr. Venancio Soriano PLT 323 103/ul Normal 150-450 [facility] Comment on above: Performed By: #### C BC #### [facility] [address] [address] [address] Venancio Soriano RBC 4.15 106/ul Critically low 4.20-5.40 [facility] Comment on above: Performed By: #### C BC #### [facility] [address] [place] [address] Dr. Venancio Soriano WBC 6.2 103/ul Normal 4.0-11.0 [facility] Comment on above: Performed By: #### C BC #### [facility] [address] [place] [address] Dr. Venancio Soriano PROF 14(COMP METB)on 022 Albumin [Mass/Vol] 4.0 g/dL Normal 3.4-5.0 [facility] Comment on above: Performed By: #### C MP #### [facility] [address] [place] [address] Dr. Venancio Soriano Albumin/Globulin [Mass ratio] 1.2 {ratio} Normal [facility] Comment on above: Performed By: #### C MP #### [facility] [address] [place] [address] Dr. Venancio Soriano ALP [Catalytic activity/Vol] 67 U/L Normal 46-116 [facility] Comment on above: Performed By: #### C MP #### [facility] [address] [place] [address] Dr. Venancio Soriano ALT [Catalytic activity/Vol] 16 U/L Normal 14-59 [facility] Comment on above: Performed By: #### C MP #### [facility] [address] [place] [address] Dr. Venancio Soriano Anion gap [Moles/Vol] 11.8 mmol/L Normal [facility] Comment on above: Performed By: #### C MP #### [facility] [address] [address] [address] Venancio Soriano AST [Catalytic activity/Vol] 9 U/L Critically low 15-37 [facility] Comment on above: Performed By: #### C MP #### [facility] [address] [address] [address] Venancio Soriano Bilirubin [Mass/Vol] 0.3 mg/dL Normal 0.2-1.0 [facility] Comment on above: Performed By: #### C MP #### [facility] [address] [address] [address] Venancio Soriano Calcium [Mass/Vol] 8.6 mg/dL Normal 8.5-10.1 [facility] Comment on above: Performed By: #### C MP #### [facility] [address] [address] [address] Venancio Soriano Chloride [Moles/Vol] 106 mmol/L Normal 98-107 [facility] Comment on above: Performed By: #### C MP #### [facility] [address] [address] [address] Venancio Soriano CO2 [Moles/Vol] 24.9 mmol/L Normal 21.0-32.0 [facility] Comment on above: Performed By: #### C MP #### [facility] [address] [address] [address] Venancio Soriano Creatinine [Mass/Vol] 0.58 mg/dL Normal 0.55-1.02 [facility] Comment on above: Performed By: #### C MP #### [facility] [address] [address] [address] Venancio Soriano EGFR-AF JAPANESE >60 Normal >=60 [facility] Comment on above: Performed By: #### C MP #### [facility] [address] [address] [address] Venancio Soriano EGFR-NON AF JAPANESE >60 Normal >=60 [facility] Comment on above: Performed By: #### C MP #### [facility] [address] [address] [address] Venancio Soriano Globulin (S) [Mass/Vol] 3.3 g/dL Normal [facility] Comment on above: Performed By: #### C MP #### [facility] [address] [place] [address] Dr. Venancio Soriano Glucose [Mass/Vol] 94 mg/dL Normal 74-106 [facility] Comment on above: Performed By: #### C MP #### [facility] [address] [address] [address] Venancio Soriano Potassium [Moles/Vol] 3.7 mmol/L Normal 3.5-5.1 [facility] Comment on above: Performed By: #### C MP #### [facility] [address] [place] [address] Dr. Venancio Soriano Protein [Mass/Vol] 7.3 g/dL Normal 6.4-8.2 [facility] Comment on above: Performed By: #### C MP #### [facility] [address] [place] [address] Dr. Venancio Soriano Sodium [Moles/Vol] 139 mmol/L Normal 136-145 [facility] Comment on above: Performed By: #### C MP #### [facility] [address] [place] [address] Dr. Venancio Soriano Urea nitrogen [Mass/Vol] 9.0 mg/dL Normal 6.4-19.3 [facility] Comment on above: Performed By: #### C MP #### [facility] [address] [place] [address] Dr. Venancio Soriano Urea nitrogen/Creatinine [Mass ratio] 15.5 mg/mg Normal [facility] Comment on above: Performed By: #### C MP #### [facility] [address] [place] [address] Dr. Venancio Soriano Discharge Instructionson Discharge Instructions [id number]#1.00CD:127 Normal [facility] ED Note-Physicianon 10-23-19 ED Note-Physician Basic Information Time Seen: Yasemin RUTHERFORD Cherry E. 10/19/2021 17:10 Chief Complaint pt states starting [...] Orders: Influenza A&B Ag Rapid COVID Antigen ([facility]) Disposition Plan Patient Discharge Condition Stable Discharge Disposition Home Discharge Prescription List Prescriptions No active prescription medications Follow-up With When Contact Information Michelle Mata In 3 days 10/22/2021 EDT Additional Instructions: Patient Education Viral Respiratory Infection, Unia-Jz-Toca Attestation This visit was performed by both [...] Diagnostic Results No qualifying data available. Normal [facility] Comment on above: Result Comment: Elec tronically Signed By: Cherry Hazel PA-C\.br\Date and Time Signed: 10/19/21 17:19 EDT\.br\Electronically Co-Signed By: Miko Yepez MD\.br\Date and Time Co-Signed: 10/22/21 10:35 EDT Coding Summary.on 10-20-2021 Coding Summary. [id number] Gh0bWw+PGhlYWQ+PE1FV KCvB68joWWmaB9YT4cNX P1HEFNUCSYKPJ7LAK2rn ES8QOtrX7VqzhWz CvujcRAjAI03ORx6VHB4 jNuwXUujmR1wfLNgL1m4 BfToUR22dF88YNteYQOj BsU6IbNmlxwwlBPn M0izPrTucYUrMlg+PHRh YmxlIHdpZHRoPScxMDAl XcCllOxyIQ0fLo1pDFWu LWNvbGxhcHNlOiBj a0hvRDTnGYbyLF2uhHzs O4XkzOW1JQAwg4z8Mi33 dHI+QYMgXNW5tDxiGDhw n683JeCnp3maBSO1 xTXvUKziCXT3E78qf9B3 DQMgMYJpNLC5mIY9tG9i iUzemcixE3DlkQXqMaW4 SDE4oVWleX4elYkd ehfqzP9pKin+V44ITF0C EJQMIU7XQpr5Q3RtHpez dHI+NZ76USVlYV30rVPs qNIxe2vogDx7WlIa FHPrJBK4tAdcXGfpt5Ve TEPwD89cfJSoi4R7JTXm bYjtsAYgBiLtrWO1tO1v MHomutejd6nmanhq Evtdi8gtzm02sT76Y19f JAbaIZJwYWN6PVEtFSKf xLgxzs7mxX7rXq2+IDxj j9dxw4gqrXy6RtYs XZOhevZcjVvdLRX1p7Qt Kx28M8WbzAlez4RaNrg0 vl73rJFuz5Y4bBL5INxu CHCaaI7mVPfzJiN1 VNNnSlYmeZ64oHOzPYqd Tu3hpFmqyNaaSY1pCRMz mlbkZOLdqW1hRBDcxVUn uGofSL5fYRAgnfux k775XbYqATR5RQAkzFOj V4UtwT2yLvYnMUAuZSQo E7JivOUrFTwrJ026OTvo AeZ8IYMaaaRfL3Wi IJHhsQngWjB7j6M4Pc3U a3QzhcgjJIZ4ZWqdYLU4 LjK5PbRjZcW6V8ApOuk0 QFKprIxqLJ4hJ3Or YAJhkpcyzlrdbJY8GGRf IPMccU30zEYgHRriGj3p d3X1t147FTQdYCGqqF75 Xs4bhIlkMXUdwQYU oE7awhppn0ikkvooKdCy GCByDKo0RSh4OBZzuJfo DuOxQIM5QgY6YGF3cYDt xD0gbXchlvbbqT5v Oyc+P95ufM9aTVB7EVP8 hrfoVKIdwhJnFL75JD21 X1FbXppveMCqjPJ+PGRp nwIrxMsxKJ6sVgAt i8bet0YjCTzzL0YmARDt FTpyIye6RWMzTDU3oAI8 eW2gRCUrLThrr8G5xTG7 E5BpwbEozk8fs0gs BGDbTSrfV68iaENyy0V7 KSIsvUR1LABhkUvwIwPk nM53Ved+MBMsyWvpi3Wx Ymtam2vyl7gytOu4 IjMwJSIgdmFsaWduPSJ0 y6JiQe64E58uEYacCAWa PZWtCRFwIFYmjVnenf3b tG1mFq3+PGNvbCB3 ySB1bZ6fOHXaHtX3EYcu Y964FoXegQEoRvecy1pl a1sxpKf8LqUbOAUasyUq qIhtGTL8h7PxLm38 D49xPKdrVVJcZNBhZXIr NXDgzVyius1piI8pFf7+ JA1qe9iydj69vL61pXJ+ EUZdGPY4sCliZFuk SOOpzV4hNQzdFeG3JOBs AtPhaJ33mJPpNNlcXa9q cUgxhRihSW3eREZdcdfq h649HfItf1caATNk eTEtPPkdDRG7H49bz0P3 DLAnKFDzWGQ6jPY9eC7v bGlnbjogbGVmdDsgdmVy mPztFCjlRHfcZ036 IHRvcDsnPlBhdGllbnQg LxOwWFe8G7FwPsu7PPOy cYnlDP9dbXHyQZnpGa9u tOnxnOslSR0fKRMu mamid687ZzRbd9keRVSi jPNsKYvjHRR1W93pr9P4 ONJyFDRwELZ9zLN4aJ8p bGlnbjogbGVmdDsg gxWerCwtFFmaEOvwE932 IHRvcDsnPkJpcnRoIERh nIY2IN29WB24lWMvn3N6 qCW2E4UyYUJwiciu gfczpGF1EZZjXAAasN14 Dy3ayUvxHk8iSDBtNVT2 UGAshMBkH3KvdP6wWcJd PRAaAMPeI3GwrPQh VFjwU908KIvgPwZ6PYBq jzHuB1LtKKFxnXasUkM6 y3O5Yg9JB8L6EZ40CK12 hCEth9D1mCC1G2Tc VFXjuumupkippQO7QPEx DRXziL64Wl0vkFicEx7s EJFqFIJ7YMUjoLNrR2Xk gF4tZiSdIDDlDHMt J2BfwPToIPbbB731AGll ZqD7UZSlejFgZ6JgNKTa hHryFcT6x6M5Sf5ZZPh1 VZ14EB66tFWgr2N3 uEO7N9TnFDMhlzmscywx iFP1MXTgDMCrkF69Ei2d xYlrIa0aQEWzJIY1APWi uPQiY2QtrL2jJuSl NTCqDTEkV5FytEWkKHey G977HEawCtF3XXTfknFh R1XzTZDltXtwMnA1u3M4 Pd2NGQXbST82TMU1 cIF2QZ23DU38H8OjCdvw dGFibGU+PHRhYmxlIHdp ZHRoPScxMDAlJyBzdHls QV2zXn6rXAUpCBUr gCjthOEtIzZly4ciRWKq DUonWX5cwIybP6WscCX7 BLTcz1f5Ym27C03yA5Vn dXA+CSCuuKL8pOR0 xR9yIvNvMjB7MGoiC727 HlQvkRPwLxjjz1bcj9nh vGr9VmP5XYNzbxAlxVfz WLC4j1GiMb90C70h IHdpZHRoPSIxNSUiIHZh fIrwlt4qsZ6hVo2+PGNv xNJ0iSJ2rE8gStWqUaR0 SKmsF233IpWepNKd Vetmg4tqm4plrLp1PwGk GPGoqfCxgMalSQS4p1Hj Xc43G8AkvFdlt0QmPgf8 eq90xIDge3X7bUF6 U0XoJRMxsegpvRBmuJrr EE1tLPEavlglXXZcjV1l DDGrJ7j5NlPuPaU6LAmh E7YkueD7TLQxaOPe PPboPXI0L27sn6L6MXGm RTVaBKB2pRC0oU6oiOkn bjogbGVmdDsgdmVydGlj UFgiUExxA278DHBc hWkrOORyxW8nCFNpfTWz aUkzTD2jCXCyncwoOjDU KNhTBKssI3ORZCpZHolM KO63WY69qPRbj3K6 qQX5M3KqGFYsewfkmsvm gOV9XLCuBZBrmC22qHNr IMzqGj5vd6V0k792QBXl QCNblT10Pl3riGrk FGUwlMONuM6oawjmm0tt udymHkDqQLGyVVc4MJe8 EASjgKpyGuHsRER2QpV9 TSY2gNXxnM0wlXmb sypnuD8hEkk+MDIvMTkv MjAwMzwvdGQ+PHRkIHN0 jKloYVakITVelF8yDSGo Q6y9IxUtGtE5XKvb K7ZwEAXcetxjSy98gS5y IxZyVhF9FYugO4ObsoT3 PQKhpEBoOLgbLTS9M82v e1H1QNVgCYSrFST2 hMJ7tS9vkLatrdiwbYEy dDsgdmVydGljYWwtYWxp K187JMNmyMzqDgI2GNui OVRlZF11MR31oODp b7F0hEL8F1FuDQNjabsg ddctdZL5LSElXIPczN27 xPCoERuiWu6gx9Q9r835 UKNrTCFygN30Ds2t qElgXTXjcIPRrT3bzfdq l5aknnyaYcQsMLFrKCb8 AXh4IXCsjQdeXxTaJUT2 ZlZ5QDI9pTMlsH8z dJntmnkohT0ySyx+RmVt PMsyYK23MY89yJLek1E5 xVN0N1QbYIGtlvftokcf tTH7WLAeQKVowR63 lBUhQKswNi8vp6Y1r913 VIBuDGSdyS10Ng7gtKeh FUVrlTLYpP1vodgcj8cx cjogIzAwMDAwMDt0 IYw6BOJquHtwDtAfTQU7 OnE2WNB6qHUjnL4rzTrv pmlznQ9fGjz+BA1bzadj voO6IG36FY30J6Cc PjwvdGFibGU+PHRhYmxl IHdpZHRoPScxMDAlJyBz kAmuMT6nGg9fIQJiWZGa kPqrjQKdCpDvk5wl BCGxORhyPX4bgNcmV8Kp kWE2BNLeq4h9Pw52Z34c I3ZpbEH+QMFuwYG2gHS6 gT9eIrYfSsF9ENqo D699IkJvuRLePtjgs6xh y4qstBy6NlBqPASgyeSe xVpiWPZ3a7SbEw27D63o IHdpZHRoPSIyMCUi EQSbvMjnvg0cjR4dMz7+ UYNqvIW6qQP8yC7cLbZx ChD2GGfhJ914DlRfqQNe RcneI01eJ9XuzHR+ YECpHyx6XEPbwJbuZK0n vQEcVJgbXy6sVHS4SmEu RnYqRDxuP5OcEJMsnunn vsipeNV0INTsLWWa dM93Or3ojGjkVl8sXYQn MMK7SIBqmEVcF7XrcT6t LcIkXVOqBLLrN6TfwDBc NBhrV182XKllZlP1 QUHqnxFrQ5RvRSKwnLtf NlZ4c9Y5Nf8HgLvxcYTa OH9wFmHuJVw2C3TxNim9 EGGzhDfkGR6liEOf SRctUe5zxWezeYhqJC9w DHUhwrzwj683MwJpg8gx BUVruSUsZChwQDK3I97x n5K2ERMkQHMcVCB9 rDG9jC9ciYysgwpypDYs dDsgdmVydGljYWwtYWxp Q858DWGccRjhRzWNTiw6 B5YwIqt7OAPtiAbk OD3zrWPgOGtqZb3ouWyh mUjrTI0gYZSpsvlte691 YlNti1kqFFSbsWNaTGag DBS0I34rq1X8IDCn BULvRQB5tCI5fW1hrOkr bjogbGVmdDsgdmVydGlj TYjdNRrgA662JILnuPkk Nu5UEoc3G4MrRpg3 HSAodMnaGZ6vqZWwTXaw Wi6mbBoxqXkjYF6fDKXd txbpq755DlWwu2qjUMUr nCLyIBrjBCG6T73a r4M1LMNiRPVpHJC1sZU6 aL2kwTzqxzlbcFEdyCmo bwAihNzeYYxbZTfaM836 IHRvcDsnPlBheWVy OjwvdGQ+ZQ35xu97B2Bw ZljkGpq8IJUzZBA3qZU4 aQ7mWCKwLEyfy3A2mIT3 I8JtniTdnn3qn0db YXBz (more content not included)... Normal [facility] Consent for Treatmenton Consent for Treatment [id number] #1.00CD:127 Normal [facility] ED Clinical Summaryon 2021 ED Clinical Summary [id number] ED Clinical Summary Person Information [facility] Age[facility] 21 Years : 2000 Sex: Female Language: Libyan PCP: JOSE G VENCES, JOE Joseph Marital [...] 10/19/2021 17:27:21 10/19/2021 17:27:21 10/19/2021 17:27:21 ADDRESS: [address] [id number] PHYS DOC NOTES: MEDICAL INFORMATION: Prescriptions Given: Medications to Continue with No Changes Other Medications ethinyl estradiol-norgestima te (Sprintec oral tablet) Ib By Mouth every day. ibuprofen (ibuprofen 600 mg Tab) 1 Tablets By Mouth every 6 hours as needed as needed for pain. PATIENT EDUCATION INFORMATION: Instructions: Viral Respiratory Infection, Eaol-Sh-Ntbp Follow up: With: Address: When: Michelle Mata In 3 days 10/22/2021 DIAGNOSIS: 1:Viral respiratory illness; Other viral agents as the cause of diseases classified elsewhere Normal [facility] ED Patient Education Noteon 10-19-2021 ED [...] home: Managing pain and congestion ? Take mklc-hzu-kwenqkw and prescription medicines only as told by [...] and water are not available, use hand plant inspector. ? Avoid contact with people who are [...] 05/13/2009 Document Revised: 06/08/2019 Document Reviewed: 07/11/2018 Elsevier Patient Education ? 2019 [employer] Normal [facility] ED Patient Summaryon 022 ED Patient Summary [address] [id number] Patient Discharge Instructions Person Information Name: MARIBEL VELEZ Age: 21 Years Arrival Date: 10/19/2021 17:05:16 Discharge Diagnosis: 1:Viral respiratory illness; Other viral agents as the cause of diseases classified elsewhere Primary Care Physician: JOSE G VENCES, JOE Joseph Provider Information Primary Provider: Advanced Supervisor Slashing Department:None The exam and treatment you received in the Emergency Department were for an urgent problem and are not intended as complete care. It is important that you follow up with a doctor, nurse practitioner, or physician?s pharmacy technician assistant for ongoing care. If your symptoms [...] provider. Patient Education Materials: Viral Respiratory Infection, Widv-Ga-Uqau A MESSAGE TO ALL PATIENTS REGARDING OPIOIDS PRESCRIPTION OPIOIDS: WHAT YOU NEED TO KNOW Prescription opioids can be used to help relieve sxilfvmy-ko-jakbiu pain and are often prescribed following a [...] struggling with addiction, tell your health director medicare sales and ask for guidance or call SAM[employer]?S National Helpline at 7-703-976-HELP. v Source: [place] Departmen (more content not included)... [facility] Influenza A&B Agon Influenzae A Ag Negative Normal Negative [facility] Comment on above: Performed By: #### 1 [id number] ####[facility] [address] [place] [address] Influenzae B Ag Negative Normal Negative [facility] Comment on above: Result Comment: Test sensitivity and specificity vary for age group, specimen type, antigen types, and prevalence of disease. Test results must be evaluated in conjunction with other clinical data available to the physician. Individuals who received nasally administered Influenza A vaccine may have positive test results up to 3 days after vaccination. Performed By: #### 1 [id number] ####[address] [place] [address] MICRO OTHER TESTSOrdered By: Mya Reza on 10-19-2021 Influenzae A Ag Negative (10/19/21 5:05 PM) Normal Negative [facility] Man Sero Influenzae B Ag Negative (10/19/21 5:05 PM) Normal Negative [facility] Man Sero Rapid COV Int NEG Ctl Pass (10/19/21 5:05 PM) Normal [facility] Man Sero Rapid COV Int POS Ctl Pass (10/19/21 5:05 PM) Normal [facility] Man Sero SARS-CoV+SARS-CoV-2 (COVID-19) Ag IA.rapid Ql (Resp) Not Detected (10/19/21 5:05 PM) Normal Not Detected [facility] Man Sero Rapid COVID Antigen ([facility])on 10-19-2021 Rapid COV Int NEG Ctl Pass Normal [facility] Comment on above: Performed By: #### 2 [id number] ####[facility] [address] [place] [address] Rapid COV Int POS Ctl Pass Normal [facility] Comment on above: Performed By: #### 2 [id number] ####[address] [place] [address] SARS-CoV+SARS-CoV-2 (COVID-19) Ag IA.rapid Ql (Resp) Not detected Normal Not Detected [facility] Comment on above: Result Comment: The [employer] System for Rapid Detection of SARS-CoV-2 is [...] or revoked sooner. Performed By: #### 2 [id number] ####[address] [place] [address] ADMITTED TO INTENSIVE CARE UNIT FOR CONDITION OF INTEREST:FIND:PT: NO Normal [facility] Comment on above: Performed By: #### 2 [id number] ####[address] [place] [address] EMPLOYED IN A HEALTHCARE SETTING:FIND:PT: NO Normal [facility] Comment on above: Performed By: #### 2 [id number] ####[address] [place] [address] FIRST TEST FOR CONDITION OF INTEREST:FIND:PT: Unknown Normal [facility] Comment on above: Performed By: #### 2 [id number] ####[place] [address] HAS SYMPTOMS RELATED TO CONDITION OF INTEREST:FIND:PT: YES Normal [facility] Comment on above: Performed By: #### 2 [id number] ####[place] [address] HOSPITALIZED FOR CONDITION OF INTEREST:FIND:PT: NO Normal [facility] Comment on above: Performed By: #### 2 [id number] ####[address] [place] [address] STATUS:FIND:PT: NO Normal [facility] Comment on above: Performed By: #### 2 [id number] ####[place] [address] RESIDES IN A [facility] CARE SETTING:FIND:PT: NO Normal [facility] Comment on above: Performed By: #### 2 [id number] ####[place] [address] US SINGLE QUAD RT UPPERon US SINGLE [...] by: SUGAR CAMARENA Date: 2021-09-19 11:51 Normal [facility] Meckelson 08-05-2021 [facility] [place] [address] [place] [address] Nuclear Medicine Report Signed Patient: Maribel Velez MR#: [id number] : 2000 Acct:[id number] Age/Sex: 21 / F ADM Date: 08/05/21 Loc: PR Room: Type: [facility] Attending Dr: Amy Tang DO Ordering Provider: Amy Tang Jr, DO Date of Service: 08/05/21 PR/PR Meckel's: Blood in stool;Abdominal pain Copies to: DO Joe Rodriguez Jr, MD Ward, Jeffrey S DO Nuclear medicine Meckel's scan TECHNIQUE: 12.0 mCi technetium 99m labeled sodium pertechnetate administered intravenously. Sequential planar imaging of the abdomen performed. HISTORY: Upper abdominal pain. Cramping. Blood clots in stool. No abnormal uptake is seen to suggest active Meckel's diverticulum. PR/PR Meckel's IMPRESSION: No findings to suggest active Meckel's diverticulum. Impression dictated by: Naseem Cevallos M.D.08/05/2021 4:16 PM Dictation Location: [place] [address] Transcribed By: [facility] 08/05/21 161 Dictated By: Naseem Cevallos DO 08/05/21 1611 Signed By: 08/05/21 1616 Normal [facility] HCG,Urineon 07-29-2021 Beta HCG ( test) Ql (U) Negative Normal [facility] Comment on above: Result Comment: PERF ORMED BY: [place] [address] PATHOLOGIST ENERGY SYSTEMS LABORATORY DIRECTOR EDDIE CORTÉS M.D. Performed By: #### U HCG #### [address] 07-29-2021 L Specimen: [id number] Received: 07/29/21 Status: AMMY Valdes Num: [id number] Spec Type: Surgical Subm Dr: Amy Tang Jr, DO Tissues: A Colon Biopsy (RANDOM BX) Procedures: HE Stain/2, Gross/Micro L4 Patient Age/Sex Location Account Attending Physician Maribel Velez 20/F [id number] Amy Tang Jr, DO SPEC NUM: [id number] RECD: 07/29/21 STATUS: AMMY VALDES NUM: [id number] DIMITRI: 07/29/[address]: Amy Tang Jr, DO ENTERED: 07/29/[address] [facility] DR: SPEC TYPE: Surgical DEPT: S ORDERED: HE Stain/2, [...] microscopic findings support the above pathologic diagnosis. [id number] Specimen: [id number] Received: 07/29/21 Status: AMMY Lucio Num: [id number] Spec Type: Surgical Subm Dr: Amy Tang Jr, DO Tissues: A Colon Biopsy (RANDOM BX) Procedures: HE Stain/2, Gross/Micro L4 Patient: Maribel Velez [id number] (Continued) Signed (signature on file) Eddie Cortés MD 07/30/21 8397 [facility] COVID-19 Antigenon COVID-19 Antigen Healthcare Worker?: N Lucas Reference [...] the presence of clinical signs and symptoms Luacs Disclaimer consistent with COVID-19. COVID19 Blank Space Lucas Disclaimer The Lucas SARS Antigen REINIER does not differentiate Lucas Disclaimer between SARS-CoV and SARS-CoV-2. COVID19 Blank Space Lucas Disclaimer This test was developed and its performance Lucas Disclaimer characteristic determined by [employer] and Lucas Disclaimer validated at [facility]. This Lucas Disclaimer test has [...] is terminated or revoked sooner. PERFORMED BY: [facility] [address] [place] [address] PATHOLOGIST ENERGY SYSTEMS LABORATORY DIRECTOR EDDIE CORTÉS M.D. Normal [facility] Comment on above: Performed By: #### C OVID-19 LUCAS, SOFIANEG #### [facility] [address] [place] [address] [facility] Lucas Ag Negativeon 07-25-19 22 Lucas Ag Negative Negative Normal Negative [facility] Comment on above: Result Comment: This is a duplicate Lucas SARS Antigen (REINIER) result to be used for statistical tracking purpose only. PERFORMED BY: [place] [address] PATHOLOGIST ENERGY SYSTEMS LABORATORY DIRECTOR EDDIE CORTÉS M.D. Performed By: #### C OVID-19 LUCAS, SOFIANEG #### [address] COVID-19 Antigenon 2 COVID-19 Antigen Healthcare [...] its performance Lucas Disclaimer characteristic determined by [employer] and Lucas Disclaimer validated at [facility]. This Lucas Disclaimer test has [...] is terminated or revoked sooner. PERFORMED BY: [place] [address] PATHOLOGIST [employer]S LABORATORY DIRECTOR EDDIE CORTÉS M.D. Normal [facility] Comment on above: Performed By: #### S NAVEEN, COVID-19 LUCAS #### [address] Lucas Ag Negativeon 07-16-19 22 Lucas Ag Negative Negative Normal Negative [facility] Comment on above: Result Comment: This is a duplicate Lucas SARS Antigen (REINIER) result to be used for statistical tracking purpose only. PERFORMED BY: [place] [address] PATHOLOGIST ENER[employer]S LABORATORY DIRECTOR EDDIE CORTÉS M.D. Performed By: #### C UU #### [facility] [address] #### VAGINITIS+ #### [facility] , Patient [...] meters squared number. To calculate BMI with Libyan measurements: 1. Measure weight in lb. 2. [...] people from 2?20 years of age. Health hospice care transitions coordinator use the charts to identify underweight and [...] 08/20/2004 Document Revised: 05/13/2018 Document Reviewed: 11/11/2016 [employer] Patient Education ? 2019 [employer] Normal [facility] Urinalysis - AUTOMATEDon Appearance (U) cloudy [employer] Other Bilirubin Ql (U) Negative [employer] Other Color (U) yellow [employer] Other Glucose Ql (U) Negative [employer] Other Hemoglobin Ql (U) Negative [employer] Other Ketones Ql (U) Negative [employer] Other Leukocyte esterase Test strip Ql (U) small [employer] Other Nitrite Ql (U) Negative [employer] Other pH (U) 8.5 [pH] [employer] Other Protein Ql (U) Negative [employer] Other Specific gravity (U) [Rel density] 1.025 [employer] Other Urobilinogen (U) [Mass/Vol] 1.0 mg/dL [employer] Other Urinalysis - AUTOMATED [employer] Other Urine Cultureon 04-08-2021 Bacteria identified Cx Nom (U) Reason for Exam Vaginal discharge Urine 75,000 colonies/ml mixed bacterial skin contaminants 2 Days PERFORMED BY: [place] [address] PATHOLOGIST EN[employer] SYSTEMS LABORATORY DIRECTOR EDDIE CORTÉS M.D. [facility] Comment on above: Performed By: #### C UU #### [facility] [address] [place] [address] #### VAGINITIS+ #### [facility] , Vaginitis Plus (VG+)on 04-08 Atopobium Vaginae Low - 0 Normal . [facility] Comment on above: Order Comment: Reaso n for Exam High risk bisexual behavior Performed By: #### C UU #### [facility] [address] [place] [address] #### VAGINITIS+ #### [facility] , BVAB2 Low - 0 Normal . [facility] Comment on above: Order Comment: Reaso n for Exam High risk bisexual behavior Performed By: #### C UU #### [place] [address] [place] #### VAGINITIS+ #### [facility] , Makayla Albicans, YUNIOR Positive Critically abnormal Negative [facility] Comment on above: Order Comment: Reaso n for Exam High risk bisexual behavior Result Comment: This test was developed and its performance characteristics determined by [facility]. It has not been cleared or approved by the Food and Drug Administration. Performed By: #### C UU #### [facility] [address] [place] [address] [place] #### VAGINITIS+ #### [facility] , Makayla Glabrata, YUNIOR Negative Normal Negative [facility] Comment on above: Order Comment: Reaso n for Exam High risk bisexual behavior Result Comment: This test was developed and its performance characteristics determined by [facility]. It has not been cleared or approved by the Food and Drug Administration. PERFORMED BY: [place] [address] PATHOLOGIST [employer]OR[employer] DIRECTOR EDDIE CORTÉS M.D. Performed By: #### C UU #### [facility] [address] [place] [address] [place] #### VAGINITIS+ #### [facility] , Chlamydia Trachomotis, YUNIOR Negative Normal Negative [facility] Comment on above: Order Comment: Reaso n for Exam High risk bisexual behavior Performed By: #### C UU #### [facility] [address] [place] [address] [place] #### VAGINITIS+ #### [facility] , Megasphaera Low - 0 Normal . [facility] Comment on above: Order Comment: [...] Administration. Performed By: #### C UU #### [facility] [address] [place] [address] [place] #### VAGINITIS+ #### [facility] , Neisseria Gonorrhoeae, YUNIOR Negative Normal Negative [facility] Comment on above: Order Comment: Reaso n for Exam High risk bisexual behavior Result Comment: Perf ormed at: =G - [facility] [address] [id number] Hvac R Instructor: Kim Anderson MD, Phone: [phone] Performed By: #### C UU #### [facility] [address] [place] [address] #### VAGINITIS+ #### [facility] , Tric Vag YUNIOR Negative Normal Negative [facility] Comment on above: Order Comment: Reaso n for Exam High risk bisexual behavior Performed By: #### C UU #### [facility] [address] [place] [address] [place] #### VAGINITIS+ #### [facility] , XR [...] Josué Erickson MD 11/15/19 Final result Normal [facility] Normal right femur x-rays. [facility], [place] RIGHT FEMUR X-RAYS, 11/15/2019. HISTORY: Right hip and leg pain. COMPARISON: None. FINDINGS: AP and lateral views of the right femur were obtained. Bone mineralization is normal. Alignment is normal. There is no fracture. No dislocation. No degenerative changes. [facility] [place] Sam, Mhpn Incoming Radiant Results From [employer] - 11/15/2019 6:01 PM EDT RIGHT FEMUR X-RAYS, 11/15/2019. HISTORY: Right hip and leg pain. COMPARISON: None. FINDINGS: AP and lateral views of the right femur were obtained. Bone mineralization is normal. Alignment is normal. There is no fracture. No dislocation. No degenerative changes. IMPRESSION: Normal right femur x-rays. [place], [place] ED Provider Noteon 9 Protein mass conc [facility] ED eMERGENCY dEPARTMENT eNCOUnter Pt Name: Maribel Velez Birthdate 2000 Date of evaluation: 08/10/2018 Provider: KARMEN Urrutia CNP I have evaluated this patient on my [...] the Claritin, Tessalon, increase fluids, rest. Take nbci-yvg-gserjsa Tylenol or ibuprofen as if her pain. [...] Discharge 08/10/2018 10:34:25 AM PATIENT REFERRED TO: [address] [address] Call As needed DISCHARGE MEDICATIONS: New [...] Provider KARMEN Urrutia CNP 08/10/18 1037 Normal [facility] Vital Signs Date Time Vital Sign Value Performing Clinician Facility 05-08-2024 11:03-0500 Body weight 73.03 kg Marycarmen MELÉNDEZ Work Phone: [facility] 05-08-2024 11:03-0500 Diastolic blood pressure 72 mm[Hg] Marycarmen MELÉNDEZ Work Phone: [facility] 05-08-2024 11:03-0500 Systolic blood pressure 110 mm[Hg] Marycarmen MELÉNDEZ Work Phone: [facility] 04-17-2024 10:11-0500 Body weight 71.22 kg Eldon Kaykay DO Work Phone: [facility] 04-17-2024 10:11-0500 Diastolic blood pressure 62 mm[Hg] Eldon Kaykay DO Work Phone: [facility] 04-17-2024 10:11-0500 Systolic blood pressure 110 mm[Hg] Eldon Kaykay DO Work Phone: [facility] 03-16-2024 12:06-0400 Body weight 68.04 kg Marycarmen MELÉNDEZ Work Phone: [facility] 03-16-2024 12:06-0400 Diastolic blood pressure 66 mm[Hg] Marycarmen MELÉNDEZ Work Phone: [facility] 03-16-2024 12:06-0400 Systolic blood pressure 108 mm[Hg] Marycarmen MELÉNDEZ Work Phone: [facility] 03-08-2024 18:24-0400 Body height 165.1 cm [facility] 03-08-2024 18:24-0400 Body mass index (BMI) [Ratio] 24.7 kg/m2 [facility] 03-08-2024 18:24-0400 Body temperature 99.1 [degF] [facility] 03-08-2024 18:24-0400 Body weight 67.58 kg [facility] 03-08-2024 18:24-0400 Diastolic blood pressure 88 mm[Hg] [facility] 03-08-2024 18:24-0400 Heart rate 84 /min [facility] 03-08-2024 18:24-0400 Respiratory rate 18 /min [facility] 03-08-2024 18:24-0400 SaO2% (BldA) [Mass fraction] 96 % [facility] 03-08-2024 18:24-0400 Systolic blood pressure 130 mm[Hg] [facility] 02-13-2022 07:25-0400 Diastolic blood pressure 98 mm[Hg] Kevin Santoro [facility] 02-13-2022 07:25-0400 Systolic blood pressure 153 mm[Hg] Kevin Santoro [facility] 02-13-2022 06:20-0400 Body temperature 98.24 [degF] Kevin Santoro [facility] 02-13-2022 06:20-0400 Diastolic blood pressure 74 mm[Hg] Kevin Satnoro [facility] 02-13-2022 06:20-0400 Heart rate 75 /min Kevin Santoro [facility] 02-13-2022 06:20-0400 Respiratory rate 20 /min Kevin Santoro [facility] 02-13-2022 06:20-0400 SaO2% (BldA) [Mass fraction] 98 % Kevin Santoro [facility] 02-13-2022 06:20-0400 Systolic blood pressure 119 mm[Hg] Kevin Santoro [facility] 10-19-2021 17:09-0400 Body temperature 98.96 [degF] Miko Yepez [facility] 10-19-2021 17:09-0400 Diastolic blood pressure 84 mm[Hg] Miko Vincent [facility] 10-19-2021 17:09-0400 Heart rate 89 /min Miko Vincent [facility] 10-19-2021 17:09-0400 Respiratory rate 17 /min Miko Vincent [facility] 10-19-2021 17:09-0400 SaO2% (BldA) [Mass fraction] 100 % Miko Vincent [facility] 10-19-2021 17:09-0400 Systolic blood pressure 138 mm[Hg] Miko Yepez [facility] 09-17-2021 15:00-0400 Body weight 61.69 kg Amy Tang Other [facility] Other 06-25-2021 15:15-0500 Body weight 62.6 kg Amy Tang Other [facility] Other 04-08-2021 14:50-0400 Body height 163.83 cm Maribel Randall Other [facility] Other 04-08-2021 14:50-0400 Body mass index (BMI) [Ratio] 24.84 kg/m2 Maribel Randall Other [facility] Other 04-08-2021 14:50-0400 Body temperature 98.2 [degF] Maribel Tonia Other [facility] Other 04-08-2021 14:50-0400 Body weight 66.68 kg Maribel Tonia Other [facility] Other 04-08-2021 14:50-0400 Diastolic blood pressure 80 mm[Hg] Maribel Randall Other [facility] Other 04-08-2021 14:50-0400 Respiratory rate 18 /min Maribel Randall Other [facility] Other 04-08-2021 14:50-0400 SaO2% (BldA) [Mass fraction] 100 % Maribel Randall Other [facility] Other 04-08-2021 14:500400 Systolic blood pressure 131 mm[Hg] Maribel Randall Other [facility] [employer] Other Encounters Encounter Date Encounter Type Care Provider Facility Start: 05-08-2024 End: 05-08-2024 Bamboo flowsheet Marycarmen MELÉNDEZ Work Phone: [facility] Start: 05-08-2024 End: 05-08-2024 Bamboo flowsheet Marycarmen MELÉNDEZ Work Phone: [facility] Start: 05-08-2024 End: 05-08-2024 Office outpatient visit 15 minutes Marycarmen MELÉNDEZ Work Phone: [facility] Comment on above: Third trimester preg katie; 29 weeks gestation of Start: 04-17-2024 End: 04-17-2024 Bamboo flowsheet Eldon [...] constipation type Start: 03-08-2024 End: 03-08-2024 ambulatory [facility] Work Phone: Start: 03-08-2024 End: 03-08-2024 Patient encounter procedure [facility] Work Phone: Start: 02-17-2024 End: 02-17-2024 ambulatory MARYCARMEN ROWAN Not Available Start: 01-20-2024 End: 01-20-2024 ambulatory ELDON MCCRACKEN Not Available Start: 08-12-2023 End: 08-12-2023 ambulatory AMBREEN DAN Not Available Start: 07-10-2022 End: 07-10-[address] NASEEM VEE Facility:[facility] Start: 06-17-2022 End: 06-17-[address] JAYSON FIORE Facility:[facility] Start: 03-02-2022 End: 03-02-2022 ambulatory Lucia Thorne Facility:[facility] Start: 03-02-2022 End: 03-02-2022 Departed Referred MD Lucia Thorne Work Phone: [facility] Start: 02-13-2022 End: 02-13-2022 Emergency department patient visit Kevin Santoro [facility] Start: 02-03-2022 End: 02-03-2022 Patient encounter procedure CAITIE MARSHALL [facility] Start: 01-15-2022 End: 01-16-[address] JOE PEREZ Facility:[facility] Start: 10-19-2021 End: 10-19-2021 Emergency department patient visit Miko Yepez [facility] Start: 09-19-2021 End: 09-20-[address] JOE PEREZ Facility:[facility] Start: 09-17-2021 End: 09-17-2021 ambulatory Amy Tang Other [facility] Other Start: 09-17-2021 Office outpatient visit 15 minutes Amy Tang [facility] Start: 08-05-2021 End: 08-05-2021 ambulatory Amy Tang Facility:[facility] Start: 08-01-2021 End: 08-01-2021 ambulatory Amy Tang Other [facility] Other Start: 08-01-2021 Telephone encounter Amy Tang [facility] Start: 07-29-2021 Telephone encounter Amy Tang [facility] Start: 07-29-2021 End: 07-29-2021 ambulatory Amy Tang [facility] [employer] Other Start: 07-25-2021 End: 07-25-2021 ambulatory Amy Tang Facility:[facility] Start: 07-16-2021 End: 07-16-2021 ambulatory Amy Tang Facility:[facility] Start: 06-25-2021 End: 06-25-2021 ambulatory Amy Tang Other [facility] Other Start: 06-25-2021 Office outpatient visit 25 minutes Amy Tang [facility] Start: 04-08-2021 End: 04-08-2021 ambulatory Maribel Randall Facility:[facility] Start: 04-08-2021 Office outpatient visit 15 minutes Maribel Randall [facility] Start: 11-15-2019 End: 11-18-2019 Patient encounter procedure MICHAEL YEPEZ SERINA [facility] Start: 11-15-2019 End: 11-17-2019 Subsequent hospital visit by physician Pauline Ko 1 [facility] Comment on above: Injury of right knee , initial encounter Start: 11-15-2019 End: 11-18-2019 Patient encounter procedure MICHAEL YEPEZ SMALLS [facility] Start: 11-15-2019 End: 11-17-2019 Subsequent hospital visit by physician Joe Perez [facility] Start: 08-10-2018 Emergency department patient visit UNKNOWN PROVIDER [facility] Procedures Date Procedure Procedure Detail Performing Clinician Start: 05-08-2024 Urnls dip stick/tabl et rgnt non-auto w/o micrscp Marycarmen MELÉNDEZ Work Phone: Start: 04-17-2024 Urnls dip stick/tabl et rgnt [...] AM EST Routine [facility] [address] [place] [phone] Eldon Mccracken DO [address] [place] [address] [facility] Start: 05-08-2024 End: 05-08-2024 Patient encounter procedure 05/08/2024 10:30 AM EST Routine [facility] [address] [place] [address] Marycarmen Rowan PA [address] [place], [place] [address] [facility] Start: 04-17-2024 End: 04-17-2025 CBC panel - Blood by Automated count CBC Lab Routine Diabetes mellitus screening Expected: 04/17/2024 (Approximate), Expires: 04/17/2025 [facility] Work Phone: Comment on above: Expected: 04/17/2024 (Approximate), Expires: 04/17/2025 Start: 04-17-2024 End: 04-17-2025 Measurement of glucose 1 hour after glucose challenge for glucose tolerance test Glucose tolerance, 1 hour Lab Routine Diabetes mellitus screening Expected: 04/17/2024 (Approximate), Expires: 04/17/2025 [facility] Comment on above: Expected: 04/17/2024 (Approximate), Expires: 04/17/2025 Start: 04-17-2024 End: 04-17-2024 Patient encounter procedure 04/17/2024 9:50 AM EST Routine [facility] [address] [place] [phone] Eldon Mccracken DO [address] [place] [address] [facility] Start: 02-13-2024 Influenza vaccination Influenza Vacc ine (#1) [facility] Start: 02-13-2020 Influenza vaccination Flu vacc ine (Season Ended) [place] Start: 2018 Meningococcal (ACWY) vaccine (1 - 2-dose series) Meningococcal (ACWY) vaccine (1 - 2-dose series) [place] Start: 2018 Screening for Chlamy nkechi trachomatis Chlamydia screen [place] Start: 2017 HIV screening HIV screen [place], [place] Start: 2013 HPV vaccine (1 - 2-d ose series) HPV vaccine (1 - 2-dose series) [place] Start: 2009 DTaP/Tdap/Td vaccine (1 - Tdap) DTaP/Tdap/Td vaccine (1 - Tdap) [place] Start: 2003 Hepatitis A vaccine (1 of 2 - 2-dose series) Hepatitis A vaccine (1 of 2 - 2-dose series) [place] Start: 2003 Measles,Mumps,Rubell a (MMR) vaccine (1 of 2 - Standard series) Measles,Mumps,Rubella (MMR) vaccine (1 of 2 - Standard series) [place] Start: 2003 Varicella vaccine (1 of 2 - 2-dose childhood series) Varicella vaccine (1 of 2 - 2-dose childhood series) [place] Start: 2002 Polio vaccine (1 of 3 - 4-dose series) Polio vaccine (1 of 3 - 4-dose series) [place] Start: 2002 Hepatitis B vaccine (1 of 3 - 3-dose primary series) [place] Atopobium vaginae DN A [Presence] in Vaginal fluid by YUNIOR with probe detection [facility] Work Phone: Bacteria identified in Urine by Culture [facility] Bacterial vaginosis associated bacterium 2 DNA [Presence] in Vaginal fluid by YUNIOR with probe detection [facility] Work Phone: Megasphaera sp type 1 DNA [Presence] in Vaginal fluid by YUNIOR with probe detection [facility] Work Phone: Payers Date Payer Category Payer Medicaid 2022 Unknown [id number] 2021 Self-pay [id number] 2018 Unknown [employer] xxxxxxxxxxx 2018-Present [phone] [address] [place] [address] xxxxxxxxxxx [id number] 2018 Unknown [id number] 2002 Unknown [id number] 2.16.840.1.256290.3.579.2. 593 2002 Unknown [id number] 2.16.840.1.952275.3.579.2. 593 2002 Unknown [id number] 2.16.840.1.089129.3.579.2. 593 2002 Unknown [id number] 2.16.840.1.140854.3.579.2. 593 2002 Unknown [id number] 2.16.840.1.687238.3.579.2. 1259 2002 Unknown [id number] 2.16.840.1.966381.3.579.2. 1259 2002 Unknown [id number] 2.16.840.1.144072.3.579.2. 1259 2002 Unknown [id number] 2.16.840.1.220386.3.579.2. 1259 1989 Unknown [id number] 2.16.840.1.729330.3.579.2. 174 1989 Unknown [id number] 2.16.840.1.942972.3.579.2. 174 1984 Unknown [id number] 2.16.840.1.748997.3.579.2. 668 1959 Medicaid [id number] Private Health Insurance [facility] [id number] Unknown [id number] 2.16.840.1.143258.3.579.2. 531 Unknown [id number] 2.16.840.1.905270.3.579.2. 531 Unknown [id number] 2.16.840.1.272348.3.579.2. 531 Unknown [id number] 2.16.840.1.362444.3.579.2. 531 Unknown [id number] 2.16.840.1.295338.3.579.2. 531 Unknown [id number] 2.16.840.1.872670.3.579.2. 531 Social History Date Type Detail Facility Start: 08-10-2018 Tobacco smoking status NHIS Never smoker [facility] Start: 08-10-2018 Alcohol intake Current non-dr signals officer of alcohol (finding) [facility] WILL Start: 2000 Sex Assigned At Not on file [place] Sex Assigned At Female [facility] Other Tobacco smoking status No Smoking Status Entered [facility] Start: 2000 Sex Assigned At Female F [facility] Start: 08-20-2023 Tobacco smoking status INIS Unknown if ever smoked [facility] Start: 11-10-2023 [facility] Functional Status Date Assessment Result Facility 02-13-2022 Functional Status N/A [facility] Clinical Notes 04-08-2021 to 05-08-2024 [facility] Conde - 05/08/2024 10:30 AM Aurelio Jade LPN - 04/17/2024 9:50 AM [facility] Meeks - 03/16/2024 11:30 AM EDT Note Date & Type Note Facility 05-08-2024 History of Presen t illness Narrative Reason for Appointment: Patient ID: Maribel Velez is a 23 y.o. female who presents for Routine Visit Patient presents today for Return OB appointment. MEDICATIONS Current Outpatient Medications Medication Instructions albuterol (ProAir Digihaler) 90 mcg/act breath-activated inhaler (w/ sensor) 2 puffs, Inhalation, Every 4 hours PRN magnesium oxide (MAG-OX) 400 mg, Oral, Daily Lqmahivl-Ohw-Wy-FA ( 1 + IRON PO) Oral ALLERGIES Allergies Allergen Reactions Red Dye Other Reaction(s): Swelling of Lip/Tongue/Throat Red Dye #40 (Allura Red) Rash PROBLEMS Active Ambulatory Problems Diagnosis Date Noted 24 weeks gestation of 04/17/2024 Resolved Ambulatory Problems Diagnosis Date Noted No Resolved Ambulatory Problems No Additional Past Medical History HISTORY PAST MEDICAL HISTORY SOCIAL HISTORY No past medical history on file. Social History Tobacco Use Smoking status: Not on file Smokeless tobacco: Not on file Substance Use Topics Alcohol use: Not on file Drug use: Not on file FAMILY HISTORY No family history on file. SURGICAL HISTORY No past surgical history on file. REVIEW OF SYSTEMS Review of Systems: Review [...] Weight as of 04/04/20: 130 lb. BP: 110/72 Patient's last menstrual period was 10/27/2023. ASSESSMENT & PLAN ICD-10-CM 1. Third trimester Z34.93 POCT urinalysis dipstick manually resulted 2. 29 weeks gestation of Z3A.29 Return OB: Patient presents today for a routine obstetrics appointment. Patient is currently 27w5d . Patient states she is doing well but has complaints of being tired due to current . Patient has verbalizes frequent movement. labor precautions was discussed/given and patient was instructed to perform kick counts three times a day. Orders Placed This Encounter Procedures POCT urinalysis dipstick manually resulted Patient has not done her 1 hour glucose due to allergy to red dye. Pt is waiting for TB to call her as soon as her clear glucose drink comes in. Pt states she will call [facility] after the appt today. Follow Up: Patient is to return to office in 2 week for routine OB appointment. Documented by Alexus Brown MA on behalf of: [facility]de documented in this encounter [facility] 04-17-2024 History of Presen t illness Narrative Reason for Appointment: Patient ID: Maribel Velez is a 23 y.o. female who presents for Routine Visit Patient presents today for Return OB appointment. MEDICATIONS Current Outpatient Medications Medication Instructions albuterol (ProAir Digihaler) 90 mcg/act breath-activated inhaler (w/ sensor) 2 puffs, Inhalation, Every 4 hours PRN magnesium oxide (MAG-OX) 400 mg, Oral, Daily Wpvfvnxt-Wjq-Mo-FA ( 1 + IRON PO) Oral ALLERGIES [...] nursing note reviewed. Exam conducted with a caterer's aide present. Vitals: Estimated body mass index is [...] Eldon Mccracken DO documented in this encounter [facility] 03-16-2024 History of Presen t illness Narrative [...] magnesium oxide (MAG-OX) 400 mg, Oral, Daily Ywiqqrbc-Jmf-Gt-FA ( 1 + IRON PO) Oral ALLERGIES [...] of: [facility] Conde documented in this encounter [facility] 02-13-2022 Evaluation + Plan note Extrac kasey [...] should change or worsen. Diagnosis: Rectal bleeding [facility]09-02-2022 Hospital Discharge instructions Patient Education 02/13/2022 07:28:37 Rectal Bleeding, Bfnd-pr-Tmoz Rectal Bleeding Rectal bleeding is when blood [...] 02/10/2012 Document Revised: 05/13/2018 Document Reviewed: 07/26/2016 [employer] Patient Education 2020 [employer] [facility] [employer] 02/13/2022 07:28:37 Hemorrhoids, Zluu-lj-Tbui Hemorrhoids Hemorrhoids are swollen veins that may [...] 3 times a day. General instructions Take pzhd-nmt-txnarxr and prescription medicines only as told by [...] 03/09/2009 Document Revised: 06/08/2019 Document Reviewed: 10/20/2018 [employer] [facility] Patient Education 2020 [employer] [facility] [employer] Follow Up Care 02/13/2022 06:18:09 With:Yu GREENE Address: [facility] [address] [place] [address]- Business (1) When:02/16/2022 07:21:18 With:CAITIE JAKE Address:Unknown When:Within 3 Day(s) [facility]05-08-2022 Hospital Discharge instructions Patient Education 10/19/2021 17:18:27 Viral Respiratory Infection, Teuz-Uf-Xcfa Viral Respiratory Infection A viral respiratory infection [...] at home: Managing pain and congestion Take drwj-adv-kjgabcc and prescription medicines only as told by [...] and water are not available, use hand plant inspector. Avoid contact with people who are sick [...] 05/13/2009 Document Revised: 06/08/2019 Document Reviewed: 07/11/2018 [employer] [facility] Patient Education 2020 [employer] Follow Up Care 10/19/2021 17:07:38 With:Michelle Mata Address:Unknown When:10/22/2021 [facility]04-06-2022 Evaluation note* Encounter Date Diagnosis Assessment Notes Treatment Notes Treatment Clinical Notes Sep, Rectal bleeding (ICD-10 - K62.5) PATIENT STATES THIS HAPPENS EVERY COUPLE OF MONTHS Sep, Abdominal pain (ICD-10 - R10.9) PATIENT DID HAVE THIS LAST NIGHT ON THE RIGHT SIDE UNDER HER RIBS PATIENT DOES CONTINUE ON THE MEDICATION WILL ORDER SOME TESTING Sep, Diarrhea (ICD-10 - R19.7) [facility] Other 02-15-2022 Evaluation note* Encounter Date Diagnosis Assessment Notes Treatment Notes Treatment Clinical Notes Jul, Blood in stool (ICD-10 - K92.1) Jul, Abdominal pain (ICD-10 - R10.9) [facility] Other 01-12-2022 Evaluation note* Encounter Date Diagnosis Assessment Notes Treatment Notes Treatment Clinical Notes Jun, Diarrhea (ICD-10 - R19.7) Jun, Rectal bleeding (ICD-10 - K62.5) PATIENT ENCOURAGED TO HAVE A COLONOSCOPY START ABOVE MEDICATION Jun, Abdominal pain (ICD-10 - R10.9) [facility] Other 10-26-2021 Evaluation note* Encounter Date Diagnosis [...] up to a week to get back. [facility] Other Chief complaint+Reason for visit Narrative* Chief Complaint Cough, sinus congest ion Reason for Visit Contact with and (mckee spected) exposure to covid-19 Sore throat [facility] Work Phone: Evaluation + Plan note No data available for this section [facility] [employer] Other Evaluation noteNo assessment information available [facility] Work Phone: Evaluation note* Diagnosis Onset Date Resolution Status Contact with and (suspected) exposure to covid-19 noneactive Sore throat noneactive [facility] Work Phone: Evaluation note* Diagnosis 20 weeks gestation of - Primary Second trimester state, incidental Constipation, unspecified constipation type [facility] Diagnosis Second trimester state, incidental 24 weeks gestation of Diabetes mellitus screening Screening for diabetes mellitus documented in this encounter [facility]* Diagnosis Third trimester state, incidental 29 weeks gestation of documented in this encounter [facility] Narrative - Reported* Type Description Date Medical History IBS Medical History Constipation Medical History allergies Surgical History right torn lateral meniscus [facility] Other Hospital Discharge instructions No data available for this section [facility] No data available for this section [facility] Summary Purpose Family History Relationship Condition Age [...] Documents on File Type Date Recorded 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 Advance Directives and Living Will Power of Dental Ceramist Helper Advance Directive Response Recorded Date/ Time Advance Directives No April 16, 2021 2:28pm Advance Directive Response Recorded Date/ Time Advance Directives No August 19 3:12pm Assessments Diagnosis Injury of right knee, initial encounter Chief Complaint and Reason for Visit Chief Complaint Dysuria Vaginal odor Additional Source Comments INFORMATION SOURCE (unrecogn ized section and content) DATE CREATED AUTHOR 08/20/[address] [facility] DATE CREATED AUTHOR AUTHOR'S ORGANIZ ATION [facility] DATE CREATED AUTHOR AUTHOR'S ORGANIZ ATION 02/17/[address] 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 Specialty Start Date End Date Unallocated, Noms Provider, MD [address] [place] [address] PCP - General Family Medicine 08/12/23 Tube Machine Operator Relationship Specialty Start Date End Date Unallocated, Chente Heredia MD [address] [address] PCP - General Family Medicine 08/12/23 Tube Machine Operator Relationship Specialty Start Date End Date Unallocated, Chente Heredia MD [address] [facility] [address] PCP - General Family Medicine 08/12/23 Tube Machine Operator Relationship Specialty Start Date End Date Unallocated, Chente Heredia MD [address] [place] [address] PCP - General Family Medicine 08/12/23 Tube Machine Operator Relationship Specialty Start Date End Date Unallocated, Chente Heredia MD [address] [facility] [address] PCP - General Family Medicine 08/12/23 Tube Machine Operator Relationship Specialty Start Date End Date Unallocated, Chente Heredia MD [address] [place] [address] PCP - General Family Medicine 08/12/23 Goals [...] BE BASED ON THE PRIMARY CLINICAL RECORDS. [facility]. provides no warranty or guarantee of the accuracy or completeness of information in this document.
== END 2024-05-09 15:27 | disposition home or self-care (01) ==
LOC: LAB 15:26
PROVIDERS: Visit Provider Obstetrics & Gynecology
DX: O26.893 Other specified pregnancy related conditions, third trimester (principal); Z67.91 Unspecified blood type, Rh negative
CPT/HCPCS: 36415; 86850; 86900; 86901

== ENCOUNTER 2024-05-10 07:37 | Outpatient (RCR) | payer MEDICAID, SELFPAY ==
[2024-05-10 10:38] VITALS: BP 118/74; PULSE 88; TEMP 37.1; O2SAT 99
[2024-05-10] MEDS: RHO(D) IMMUNE GLOBULIN 1,500 UNIT SYRINGE 1500 UNIT IM (10:52)
--- NOTE | 2024-05-10 11:05 | PC.NURSE ---
Pt here for Rhogam injection. Rhogam info card complete and given to pt. Injection given without incident. Pt d/c'd stable.
== END 2024-05-10 13:31 | disposition home or self-care (01) ==
LOC: INF 07:37
PROVIDERS: Visit Provider Obstetrics & Gynecology
DX: O26.893 Other specified pregnancy related conditions, third trimester (principal); Z67.91 Unspecified blood type, Rh negative
CPT/HCPCS: 96372; J2791

== ENCOUNTER 2024-06-05 10:40 | Outpatient (OUT) | payer MEDICAID, SELFPAY ==
--- NOTE | 2024-06-05 10:42 | US_ITS ---
[address] [address] Patient Name: AKILAH WEST MRN: [id number] date: 2000 Sex: F Assigned Patient Location: [facility] Current Patient Location: LAB Accession/Order Number: [id number] Exam Date: 06/05/2024 10:43 Report Date: 06/05/2024 12:46 At the request of: KEITH JARRELL Procedure: US OB growth EXAMINATION: US OB growth HISTORY: LARGE FOR GESTATIONAL AGE COMPARISON: 03/16/2024 FINDINGS: Heart Rate: 150 bpm Amniotic Fluid Volume: 19.3 cm Number: 1 Position: Cephalic presentation, longitudinal lie BIOMETRY: BPD: 8.45 cm; 34 weeks 0 days; 94.30 % HC: 29.74 cm; 32 weeks 6 days; 45 % AC: 29.43 cm; 33 weeks 3 days; 89.90 % FL: 6.32 cm; 32 weeks 5 days; 64 % EFW: 2234.93 g; 85 %, 4 lbs. 12 oz. FL/AC: 21.47 FL/BPD: 74.79 HC/AC: 1.01 GESTATIONAL AGE: Age by EDC: 31 weeks 5 days WYATT by EDC: 2024-08-02 Age by US: 33 weeks 2 days WYATT by US: 2024-07-22 US/US OB growth IMPRESSION: Normal interval growth Electronically authenticated by: AMY ESCALANTE Date: 06/05/2024 12:46
== END 2024-06-05 10:41 | disposition home or self-care (01) ==
LOC: NOMS 10:41
PROVIDERS: Visit Provider Obstetrics & Gynecology
DX: O36.63X0 Maternal care for excessive fetal growth, third trimester, not applicable or unspecified (principal); Z3A.31 31 weeks gestation of pregnancy; Z34.93 Encounter for supervision of normal pregnancy, unspecified, third trimester
CPT/HCPCS: 36415; 76816; 83036

== ENCOUNTER 2024-06-05 11:29 | Outpatient (OUT) | payer MEDICAID, SELFPAY ==
--- OUTSIDE RECORDS SUMMARY | 2024-06-05 11:49 | XMS_ITS | CCD ---
Author Organization [facility] Care Team Providers Care Heat Plant Specialist Name Role Phone PROVIDER, UNKNOWN Attending Unavailable PROVIDER, UNKNOWN Referring Unavailable Balbina, PCP Primary Care Unavailable Joe Perez Primary Care Provider UnavailMICHAEL Staley Referring Unavailab JOE Asif Primary Care Unavailable MICHAEL SMALLS Referring Unavailab JOE Asif Primary Care Unavailable JOE PEREZ Primary Care Physician [phone] Maribel Randall Unavailable Amy Tang Unavailable CAITIE MARSHALL Primary Care Physician CAITIE MARSHALL Primary Care Physician MD Lucia Thorne Attending Provider [phone] Lucia Thorne Admitting Unavailable Lucia Thorne Attending Unavailable NON STAFF Primary Care Unavailable Amy Tang Attending Unavailable Amy Tang Admitting Unavailable Joe Perez Primary Care Unavailable Amy Tang Attending Unavailable Joe Perez Primary Care Unavailable Amy Tang Admitting Unavailable Maribel Randall Admitting Unavailable Maribel Randall Attending Unavailable [facility], Services Primary Care Unavaila ble [...] MACARENA, DR TYLER Consulting Unavailable Timmy VENCES, [facility] Provider Primary Care Provi fatuma AMBREEN DAN Attending Unavailable ELDON MCCRACKEN Attending Unavailable MARYCARMEN ROWAN Attending Unavailable HARPAL, MARYCARMEN Attending Unavailable ELDON MCCRACKEN Attending Unavailable HARPAL, MARYCARMEN Attending Unavailable ELDON MCCRACKEN Attending Unavailable Timmy VENCES, [facility] Provider Primary Care Provi fatuma Allergies Allergy Classification Reported Allergen(s) Allergy Type Date of Onset Reaction(s) Facility (20 sources) Contrast media; 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: [red dye] Drug allergy 7 [place] Other (18 sources) Red Dye #40 (Allura Red) Allergy to substance 3 [facility] Work Phone: Medications Current Medications Medication Drug Class(es) Dates Sig (Normalized) Sig (Original) sensor 200 actuat albuterol 0.09 mg/actuat dry powder inhaler (13 sources) beta2-Adrenergic Agonist Start: 03-08-2024 take 2 [...] Active magnesium oxide 400 mg oral tablet (17 sources) Start: 02-17-2024 End: 09-14-2024 take 1 tablet by mouth once daily magnesium oxide (Mag-Ox) 400 MG tablet Indications: Nonintractable headache, unspecified chronicity pattern, unspecified headache type Take 1 tablet (400 mg) by mouth Daily 30 tablet 6 02/17/2024 09/14/2024 Active polysaccharide iron complex 391 mg oral capsule (2 sources) Start: 05-24-2024 End: 06-23-2024 take 1 capsule by mouth once daily iron polysaccharides (ProFe) 391.3 (180 Fe) MG capsule Indications: Anemia during in third trimester Take 1 capsule (391.3 mg) by mouth Daily 30 capsule 6 05/24/2024 06/23/2024 Active pramoxine hydrochloride 10 mg/ml rectal foam (1 source) Start: 02-13-2022 End: 02-20-2022 take 15 g rectal route twice daily ProctoFoam 1% Foam apply, Rectal, BID for 7 day(s), 15 gm, Refill(s) 0, [facility]/pharmacy #[id number], 162, cm, 02/13/22 6:24:00 EDT, Height/Length Dosing, 61, kg, 02/13/22 6:24:00 EDT, Weight Dosing Start Date: 02/13/22 Stop Date: 02/20/22 Status: Ordered Dtghabux-Fww-Hc-FA ( 1 + IRON PO) (18 sources) Ecoxcojw-Eaa-Nm-FA ( 1 + IRON PO) Take by [...] oral tablet (1 source) alpha-Adrenergic Agonist, Uncompetitive L-lxmbza-Y-aspartat e Receptor Antagonist, Sigma-1 Agonist Start: 08-20-2023 [...] Prednisone Discontinued 20 MG PO Twice daily 10 August 20, 2023 1:00am March 08, 2024 6:16pm [...] Episodic Immunizations and screening for infectious disease (3 sources) Contact with or exposure to other viral diseases; 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: [Exposure to 2019 novel coronavirus] 03-08-2024 Episodic Joint disorders and dislocations; trauma-related (3 sources) Tear of lateral meniscus of knee 01-24-2020 Episodic Open wounds of extremities (4 sources) Open bite of right hand, initial encounter; 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: [OPEN BITE RIGHT HAND INITIAL ENC] Onset: 06-17-2022 Episodic Other aftercare (1 source) alf (current) use of hormonal contraceptives; 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: [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 CONTRACEPTIVES] Onset: 06-18-2022 Episodic Other circulatory disease (2 sources) Other specified symptoms and signs involving the circulatory and respiratory systems; 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: [Oth symptoms and signs involving the circ and resp systems] Onset: 08-10-2018 Episodic Other complications of (2 sources) Anemia of ; 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: [Anemia complicating , third trimester] 05-24-2024 Chronic Other complications of (2 sources) Excessive growth affecting management of mother; 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: [Maternal care for excessive growth, unspecified trimester, not applicable or unspecified] 05-24-2024 Episodic Other female genital disorders (2 sources) [...] 10-19-2021 Episodic Other and delivery including normal (8 sources) Second trimester ; 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: [Encounter for supervision of normal , unspecified, second trimester] 03-16-2024 Episodic Other screening for suspected conditions (not mental disorders or infectious disease) (4 sources) Patient encounter status; 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: [Encounter for screening for diabetes mellitus] 04-17-2024 Episodic Other upper respiratory infections (3 sources) Acute upper respiratory infection, unspecified; 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: [Acute pharyngitis, unspecified] Onset: 08-10-2018 03-08-2024 Episodic Residual codes; unclassified (2 sources) Gestation period, 20 weeks; 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: [20 weeks gestation of ] 03-16-2024 Episodic Residual codes; unclassified (11 sources) Gestation period, 24 weeks; 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: [24 weeks gestation of ] Onset: 04-17-2024 04-17-2024 Episodic Residual codes; unclassified (2 sources) Gestation period, 29 weeks; 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: [29 weeks gestation of ] 05-08-2024 Episodic Residual codes; unclassified (2 sources) Gestation period, 30 weeks; 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: [30 weeks gestation of ] 05-24-2024 Episodic Skin and subcutaneous tissue infections (1 [...] Classification Problem Date Documented Da te Episodic/Chronic Headache; including migraine (2 sources) Headache; 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: [Nonintractable headache, unspecified chronicity pattern, unspecified headache type] 02-17-2024 Episodic Malaise and fatigue (4 sources) Other fatigue; 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: [OTHER FATIGUE] Onset: 01-15-2022 Episodic Other eye disorders (1 source) Other disorders of sclera; 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: [OTHER DISORDERS OF SCLERA] Onset: 01-18-2022 Episodic Other female genital disorders (2 sources) Vaginal discharge; 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: [Other specified noninflammatory disorders of vagina] 02-17-2024 Episodic Other gastrointestinal disorders (2 sources) Diarrhea, unspecified Onset: 06-25-2021 Resolved: 09-17-2021 Episodic Residual codes; unclassified (2 sources) High risk bisexual behavior; 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: [High risk bisexual behavior Z72.53] Onset: 04-08-2021 Resolved: 04-08-2021 Episodic Residual codes; unclassified (2 sources) Gestation period, 17 weeks; 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: [17 weeks gestation of ] 02-17-2024 Episodic Results Test Name Value Interpretation Reference Range Facility Urinalysis macro (dipstick) panel (U)on 05-24-2024 Bilirubin, UA Negative Negative - 4(70) +++ mg/dL [facility] Blood, UA Negative Negative - 50 Erwin/mcL [facility] Clarity, UA Clear [facility] re Color, UA Yellow [facility] Glucose, UA Negative Negative - 1999(110) ++++ mg/dL [facility] Interpretation and review of laboratory results Abnormal [facility] Ketones, UA Negative Negative - 160(16) ++++ mg/dL [facility] Leukocytes, UA Negative Negative - 500+++ Kevin/mcL [facility] Nitrite, UA Negative Negative - Positive [facility] pH, UA 6.5 5 - 9 [facility] Protein, UA Many Negative - 2000(20) ++++ mg/dL [facility] Spec Grav, UA 1.025 1 - 1.[address] [facility] Urobilinogen, UA 1.0 0.2 - 12 mg/dL [facility] ALL TYPE AND SCREENon 2023 ABO and Rh group Nom (Bld) Blood group A Rh(D) negative [facility] , [facility] Urinalysis macro (dipstick) panel (U)on 05-08-2024 Bilirubin, UA Negative Negative - 4(70) +++ mg/dL [facility] Healthcare Blood, UA Negative Negative - 50 Rewin/mcL [facility] Healthcare Clarity, UA Clear [facility] Color, UA Yellow [facility] Glucose, UA Negative Negative - 1999(110) ++++ mg/dL [facility] Interpretation and review of laboratory results Normal [facility] Ketones, UA Negative Negative - 160(16) ++++ mg/dL [facility] Healthcare Leukocytes, UA Negative Negative - 500+++ Kevin/mcL [facility] Healthcare Nitrite, UA Negative Negative - Positive [facility] pH, UA 6 5 - 9 [facility] Protein, UA Negative Negative - 1999(20) ++++ mg/dL [facility] Healthcare Spec Grav, UA 1.02 1 - 1.03 [facility] care Urobilinogen, UA 1.0 0.2 - 12 mg/dL [facility] Urinalysis macro (dipstick) panel (U)on 04-17-2024 Bilirubin, UA Negative Negative - 4(70) +++ mg/dL [facility] Blood, UA Negative Negative - 50 Erwin/mcL [facility] Healthcare Clarity, UA Clear [facility] re Color, UA Yellow [facility] Glucose, UA Negative Negative - 1999(110) ++++ mg/dL [facility] Interpretation and review of laboratory results Normal [facility] Ketones, UA Negative Negative - 160(16) ++++ mg/dL [facility] Leukocytes, UA Negative Negative - 500+++ Kevin/mcL [facility] Healthcare Nitrite, UA Negative Negative - Positive [facility] pH, UA 6 5 - 9 [facility] Protein, UA Negative Negative - 1999(20) ++++ mg/dL [facility] Healthcare Spec Grav, UA 1.02 1 - 1.03 [facility] care Urobilinogen, UA 0.2 0.2 - 12 mg/dL [facility] Urinalysis macro (dipstick) panel (U)on 03-16-2024 Bilirubin, UA Negative Negative - 4(70) +++ mg/dL [facility] Blood, UA Negative Negative - 50 Erwin/mcL [facility] Healthcare Clarity, UA Clear [facility] re Color, UA Yellow [facility] Glucose, UA Negative Negative - 1999(110) ++++ mg/dL [facility] Interpretation and review of laboratory results Normal [facility] Ketones, UA Negative Negative - 160(16) ++++ mg/dL [facility] Leukocytes, UA Negative Negative - 500+++ Kevin/mcL [facility] Nitrite, UA Negative Negative - Positive [facility] pH, UA 5.5 5 - 9 [facility] Protein, UA Negative Negative - 2000(20) ++++ mg/dL [facility] Spec Grav, UA 1.020 1 - 1.[address] [facility] Urobilinogen, UA 1.0 0.2 - 12 mg/dL [facility] No Panel InformationOrdered By: Shanice Bustamante on 03-08-2024 Quick Strep (POC) [facility] AFP, SERUM, OPEN SPINA BIFID Aon 02-19-2024 AFP MOM 0.63 . [facility] AFP VALUE 26.1 ng/mL . [facility] COMMENT: Comment . [facility] Comment on above: So Carcamo , Ph.D., [facility] Director References: Available Upon Request. Multiples Of Median Cutoffs For AFP Elevations Barajas 2.5 Black 2.8 IDD 2.0 Twins 4.5 Abbreviation Definitions IDD - Insulin Dep Diabetes OSBR - Open Spina Bifida Risk For further inquiries contact [facility] at [phone]. This test was developed and its performance characteristics determined by [employer]. It has not been cleared or approved by the Food and Drug Administration. Performed at: [facility] [address] [place], [place] [id number] Ladle Liner Helper: Marci Lewis [facility], Phone: [phone] GEST. AGE ON COLLECTION DATE 17.6 . weeks [facility] GESTAT. AGE BASED ON LMP . [facility] Comment on above: Recalculations are n ot recommended when gestational dating by LMP and ultrasound are within 10 days. INSULIN DEP DIABETES No . [facility] Healthcare INTERPRETATION Comment . [facility] Healt hcare Comment on above: Interpretation: Scre en Negative This result is screen negative for OSB. The AFP MoM calculated is based on the gestational age provided. MS-AFP can identify up to 80% of open neural tube defects. Closed neural tube defects and some open defects may not be detected by this test. This test does not screen for Down Syndrome or Trisomy 18. If screening for Down Syndrome or Trisomy 18 is desired, contact [facility] to discuss available options. The [employer] recommends amniocentesis be offered to women age 35 and older. [age] [facility] MULTIPLE GESTATION No . [facility] [place] [address] [address] [place] [id number] . [facility] . [facility] RESULTS Report . [facility] TEST RESULTS: Negative . [facility] WEIGHT 147 . lbs [facility] N N LMP [phone] 17 N 1 Y 147 N N N N N White/ [facility] e URETHRITIS/DISCHARGE PLUS VA GINITIS (HTRX)on 02-19-2024 ATOPOBIUM VAGINAE 15.349 Abnormal [facility] ATOPOBIUM VAGINAE Detected Abnormal [facility] BVAB 2,3 (BACTERIAL VAGINOSIS ASSOCIATED BACTERIA 2, 3); MOBILUNCUS SPP 0.000 [facility] BVAB 2,3 (BACTERIAL VAGINOSIS ASSOCIATED BACTERIA 2, 3); MOBILUNCUS SPP Not detected [facility] ALLAN ALBICANS, PARAPSILOSIS, TROPICALIS 0.000 [facility] ALLAN ALBICANS, PARAPSILOSIS, TROPICALIS Not detected [facility] ALLAN GLABRATA 0.000 [facility] ALLAN GLABRATA Not detected [facility] ALLAN KRUSEI 0.000 [facility] ALLAN KRUSEI Not detected [facility] CHLAMYDIA TRACHOMATIS 0.000 [facility] CHLAMYDIA TRACHOMATIS Not detected [facility] ERMB, C; MEFA 18.780 Abnormal [facility] care ERMB, C; MEFA Detected Abnormal [facility] GARDNERELLA VAGINALIS 16.918 Abnormal [facility] GARDNERELLA VAGINALIS Detected Abnormal [facility] Interpretation and review of laboratory results Abnormal [facility] MEGASPHAERA (TYPES 1, 2) 0.000 [facility] MEGASPHAERA (TYPES 1, 2) Not detected [facility] MYCOPLASMA GENITALIUM 0.000 [facility] MYCOPLASMA GENITALIUM Not detected [facility] NEISSERIA GONORRHOEAE 0.000 [facility] NEISSERIA GONORRHOEAE Not detected [facility] TET B, TET M 18.993 Abnormal [facility] are TET B, TET M Detected Abnormal [facility] are TRICHOMONAS VAGINALIS 0.000 [facility] TRICHOMONAS VAGINALIS Not detected N [facility] Urinalysis macro (dipstick) panel (U)on 02-17-2024 Bilirubin, UA Negative Negative - 4(70) +++ mg/dL [facility] Blood, UA Positive Negative - 50 Erwin/mcL [facility] Comment on above: trace-intact Clarity, UA Clear [facility] re Color, UA Yellow [facility] e Glucose, UA Negative Negative - 1999(110) ++++ mg/dL [facility] Interpretation and review of laboratory results Abnormal [facility] Ketones, UA Negative Negative - 160(16) ++++ mg/dL [facility] Leukocytes, UA Positive Negative - 500+++ Kevin/mcL [facility] Comment on above: moderate Nitrite, UA Negative Negative - Positive [facility] pH, UA 7.0 5 - 9 [facility] Protein, UA Negative Negative - 1999(20) ++++ mg/dL [facility] Spec Grav, UA 1.030 1 - 1.[address] [facility] Urobilinogen, UA 0.2 0.2 - 12 mg/dL [facility] e CULTURE URINEon 07-12-2022 CULTURE URINE Isolate 1 [...] F Tetracycline >=16 R F Normal [facility] Comment on above: Performed By: #### U RCX #### [facility] [address] [place] [address] Dr. Venancio SAINI URINE PROFILEon 3 Bilirubin Ql (U) Negative Normal NEGATIVE [facility] Comment on above: Performed By: #### U MICRO, PREGU, ERUR #### [facility] [address] [address] [address] Venancio Soriano Clarity (U) CLEAR Normal CLEAR [facility] Comment on above: Performed By: #### U MICRO, PREGU, ERUR #### [facility] [address] [address] [address] Venancio Soriano Color (U) LT. YELLOW Normal YELLOW [facility] Comment on above: Performed By: #### U MICRO, PREGU, ERUR #### [facility] [address] [address] [address] Venancio QUEENAHD A micrscopic examination will be performed if indicated. Normal [facility] Comment on above: Performed By: #### U MICRO, PREGU, ERUR #### [facility] [address] [place] [address] Dr. Venancio Soriano Glucose Ql (U) Negative Normal NEGATIVE [facility] Comment on above: Performed By: #### U MICRO, PREGU, ERUR #### [facility] [address] [address] [address] Venancio Soriano Hemoglobin Ql (U) TRACE-INTACT Abnormal NEGATIVE [facility] Comment on above: Performed By: #### U MICRO, PREGU, ERUR #### [facility] [address] [place] [address] Dr. Venancio Soriano Ketones Ql (U) Negative Normal NEGATIVE [facility] Comment on above: Performed By: #### U MICRO, PREGU, ERUR #### [facility] [address] [address] [address] Venancio Soriano LEUKOCYTES SMALL Abnormal NEGATIVE [facility] Comment on above: Performed By: #### U MICRO, PREGU, ERUR #### [facility] [address] [address] [address] Venancio Soriano Nitrite Ql (U) Negative Normal NEGATIVE [facility] Comment on above: Performed By: #### U MICRO, PREGU, ERUR #### [facility] [address] [address] [address] Venancio Soriano pH (U) 6.0 [pH] Normal 5-9 [facility] Comment on above: Performed By: #### U MICRO, PREGU, ERUR #### [facility] [address] [address] [address] Venancio Soriano SPEC GRAVITY 1.025 Normal 1.005-<=1.02 5 [facility] Comment on above: Performed By: #### U MICRO, PREGU, ERUR #### [facility] [address] [address] [address] Venancio Soriano UA PROTEIN Negative Normal NEGATIVE/ TRACE [facility] Comment on above: Performed By: #### U MICRO, PREGU, ERUR #### [facility] [address] [address] [address] Venancio Soriano UR MICRO IND INDICATED Normal [facility] Comment on above: Performed By: #### U MICRO, PREGU, ERUR #### [facility] [address] [address] [address] Venancio Soriano Urobilinogen Qn (U) 0.2 {Erick'U}/dL Normal 0.2 - 1. 0 [facility] Comment on above: Performed By: #### U MICRO, PREGU, ERUR #### [facility] [address] [address] [address] Venancio Soriano URon 07-10-2022 , QUAL Negative Normal NEGATIVE [facility] Comment on above: Performed By: #### U MICRO, PREGU, ERUR #### [facility] [address] [address] [address] Venancio Soriano URINE MICROSCOPIC ONLYon BACTERIA TRACE Abnormal NONE SEEN [facility] Comment on above: Performed By: #### U MICRO, PREGU, ERUR #### [facility] [address] [address] [address] Venancio Soriano Bacteria identified Cx Nom (U) INDICATED Normal [facility] Comment on above: Performed By: #### U MICRO, PREGU, ERUR #### [facility] [address] [address] [address] Venancio Soriano CAST NONE SEEN Normal NONE SEEN [facility] Comment on above: Performed By: #### U MICRO, PREGU, ERUR #### [facility] [address] [address] [address] Venancio Soriano Crystals LM Nom (Urine sed) NONE SEEN Normal NONE SEEN [facility] Comment on above: Performed By: #### U MICRO, PREGU, ERUR #### [facility] [address] [address] [address] Venancio Soriano Epithelial cells LM Ql (Urine sed) RARE Normal NONE SEEN /RARE [facility] Comment on above: Performed By: #### U MICRO, PREGU, ERUR #### [facility] [address] [address] [address] Venancio Soriano MUCOUS NONE SEEN Normal NONE SEEN [facility] Comment on above: Performed By: #### U MICRO, PREGU, ERUR #### [facility] [address] [address] [address] Venancio Soriano RBC 0-2 Normal 0-2 [facility] Comment on above: Performed By: #### U MICRO, PREGU, ERUR #### [facility] [address] [address] [address] Venancio Soriano WBC 5-10 Abnormal NONE SEEN [facility] Comment on above: Performed By: #### U MICRO, PREGU, ERUR #### [facility] [address] [address] [address] Venancio Soriano Urine Cultureon 03-02-2022 Bacteria identified Cx Nom (U) Reason for Exam Dysuria Urine No Growth 2 Days PERFORMED BY: [place] [address] PATHOLOGIST SIDING MECHANIC EDDIE CORTÉS M.D. Normal [facility] Comment on above: Performed By: #### V AGINITIS+ #### [facility] , #### CUU #### [address] Vaginitis Plus (VG+)on 03-02 Atopobium Vaginae Moderate - 1 Normal . [facility] Comment on above: Order Comment: Reaso n for Exam Vaginal odor Performed By: #### V AGINITIS+ #### [facility] , #### CUU #### [facility] [address] [place] [address] BVAB2 Low - 0 Normal . [facility] Comment on above: Order Comment: Reaso n for Exam Vaginal odor Performed By: #### V AGINITIS+ #### [facility] , #### CUU #### [address] Allan Albicans, YUNIOR Negative Normal Negative [facility] Comment on above: Order Comment: Reaso n for Exam Vaginal odor Result Comment: This test was developed and its performance characteristics determined by [facility]. It has not been cleared or approved by the Food and Drug Administration. Performed By: #### V AGINITIS+ #### [facility] , #### CUU #### [address] Allan Glabrata, YUNIOR Negative Normal Negative [facility] Comment on above: Order Comment: Reaso n for Exam Vaginal odor Result Comment: This test was developed and its performance characteristics determined by [facility]. It has not been cleared or approved by the Food and Drug Administration. PERFORMED BY: [place] [address] PATHOLOGIST SIDING MECHANIC EDDIE CORTÉS M.D. Performed By: #### V AGINITIS+ #### [facility] , #### CUU #### [facility] [address] [place] [address] [place] Chlamydia Trachomotis, YUNIOR Negative Normal Negative [facility] Comment on above: Order Comment: Reaso n for Exam Vaginal odor Performed By: #### V AGINITIS+ #### [facility] , #### CUU #### [facility] [address] [place] [address] [place] Megasphaera Low - 0 Normal . [facility] Comment on above: Order Comment: [...] AGINITIS+ #### [facility] , #### CUU #### [facility] [address] [place] [address] Neisseria Gonorrhoeae, YUNIOR Negative Normal Negative [facility] Comment on above: Order Comment: Reaso n for Exam Vaginal odor Result Comment: Perf ormed at: =G - [facility] [address] [id number] Ladle Liner Helper: Kim Anderson MD, Phone: [phone] Performed By: #### V AGINITIS+ #### [facility] , #### CUU #### [facility] [address] [place] [address] Tric Vag YUNIOR Negative Normal Negative [facility] Comment on above: Order Comment: Reaso n for Exam Vaginal odor Performed By: #### V AGINITIS+ #### [facility] , #### CUU #### [facility] [address] [place] [address] Coding Summary.on 02-17-2022 Coding Summary. [id number] Gh0bWw+PGhlYWQ+PE1FV ZTsZ16xjGKyaL6WV2sID B8BMRGRCPYMRL4LWK7fj HC0TTvnY4SndzIg PdwbgMHtHH86BUp4IZK2 eMvbBQfvmY0wfHJxD2j0 PnDzBG32zP19BAwgYYYm UfS6NrPzonyzaWCo T3owIuGnxVNbMib+PHRh YmxlIHdpZHRoPScxMDAl QwDgeOwgFB1cSa4kOGQw LWNvbGxhcHNlOiBj h4xiADDxUQarIG9kwKrn B5VgmDM7JDBxb6g5Yd23 dHI+DDAcIMV1rKxrYUkd r989QxSnm1feQLK6 bIIgDBylJSN7X88yg1E9 QIOiQGGfROS8eBA3gL1e hGglajyaV3QthIMhGbY5 RIU1aFYyqC9czYmj glhjfA3zSii+O77ZTA5K IVSSUB8DLas5K6VzLhdg dHI+IK94QMPtEP89pWVk fXZnq8ofiCj8CbIt FKSeJOI1qFreFNwnp3Dq PLAgD42awACoc8K4IMKa kDwqnPXpAqZrjZQ3lM4m WTlutnlil7zuaozx Undjp4lxuw74tV40T89j TInfOLUeBCM5YJKeUPTl zRhdza9osF6rYt2+IDxj l1iaj8gyrKa2AxMm FKIicbPwnMtvWDN0w0Sk Kd94B5CdfEhme0SoBoq2 co07mZCic4Y0cRZ5GMtn WXGkjQ0dZPyxRvT9 XPWgYqRgyL58eCMzZXvu Ex0zuSpwfGtaUO8tNYYe kmpbGKFnfS7kLJGcjQDn aHuxNY8cWQXnisqa d453SkYcQZX8AYEgbOEe H7OhsM6wWfDmQJVeYSRz K1LoiYDhKLieG305QVoq BhM2BQYqbaQyL9De CJXmsPkrGoA3p6Z7Ea0E m5RbmcsfTTG9VRrxOYY3 YcA2XoVpRrE1F4BlEii5 LVBeiIjbEY1mD2Px FKOcufeeegigyNX6QCPu NYCwzK01bWYdGIbtLa4u j3P3e392XNWuNQTxzF89 Cw5nzJkaVUErsZNW bS0fjvszs4gychepKxQh XJVuKWo5OIf4PWCnwFum DbYxNWH1XrC3EGW0iUYo xG2kyYslozmfkT5o Oyc+Z97rlY0fZFG1KIF1 rnqiSIIyvxJvGB20YP96 R9HeFwnqrJSpsMN+PGRp ijZzaFajMP1nGxNs m1xim1AoXNfsC2AxQFJw HFxjEwy9MZKbPSU4aDP1 wC5mBPVgTOtih3S9kYC6 E8IjeoFhni8pn0et AFAjMPwwQ24hhHOus8R0 EUEsbCU3TZZygOgoPlLj xU45Rsq+JNIgaDzlo6Lg Nsihr7boe9afnDl7 IjMwJSIgdmFsaWduPSJ0 n9FgEf53A79rNQjmRHBm SJYfOHJuQMPijFfhup1k uP4qNt3+PGNvbCB3 qUF5lF9yZLXmYzJ8OVmx T759LwDzsLOsGnamq0mp o4zwrOx5PzCrEUAmxyRd bLfhUGD1i7ZjEj48 D01qNIngSDKjLKTnOSYp FRWgaDbqba7udV3qGx7+ VI6nn3hygo70vE62tLH+ YGXsULR7qJttKZda ITPzgP6xWQnvCfY9AEQo QgQakZ94aQCpCMbkCt1a aCyskCkjZZ3rPCLekdkd m908DsAtx3lyIYRh tISoBNemNMZ9X50bt7K8 TCMoUETtBNA6nJQ8hJ7w bGlnbjogbGVmdDsgdmVy vBtkGXybHPfiY460 IHRvcDsnPlBhdGllbnQg YnDpHWi0J4XvVna4XWYg hUixUK7kmHGfOFayPj3k vAonjKuhOJ3ySQIl gsixl029RmOgn0bdXHTk gVEyIDypYDM7K96qm7M3 AJAzDBUfSJN9mTA6mO0h bGlnbjogbGVmdDsg qlSknBmmBPtnOYxgE365 IHRvcDsnPkJpcnRoIERh jLQ7KI73MN19oRHzk8A0 zSI2U8RlAMQuvlix fjqawIG8PYRdCRIbrX73 Ze0yxYmxRt1nTOGfANJ3 BVYmxNFeQ5LweP9fFxZa YUIpPARjQ9PetSFw TUwoC556JEavGnN8JVFb vjUwI2XdGCOnxOsyXcS4 d3U9Ef7OH4K8DB06TA09 pEEmu7A8xET5T1Xk HELzpjfeworwzZT3SITe FPGzgJ98Kr2zqIprAa6g PURmVJL1LEAscQYhO1Tb rN3sCkInSQCaFXTb E6XinHWbQSnjS507OZnn LmE4OHGlraVvM2DlBVEf dPzeVkS5d1M6Ak4XEFy8 GY31UW98cFFhr5T3 fZJ1H9HuYAXpydmeoupl eKA7PACsLTLutS28Xh0l lSvsHl4fWPQsNBC4KZZe vBNxD2FibN3sZcTc YQYnPMRjC3DubOLaKMud B364VDlsJfV4PATyyaNx B9HwJLFppBsvZiC1o0N9 Bl6QIRJdWS24SNT7 hJI9UK94MA91D7JbWigb dGFibGU+PHRhYmxlIHdp ZHRoPScxMDAlJyBzdHls MJ7yDn2aLYQoGHWb oUzsyFPzTrQwp9cjPQMd XCphWG6jcKogQ9LamQK9 NCZzg9n5Gd62G06eR2Jh dXA+DGAzrJD4oNW3 lC1gTfRcPyN0SRmmA901 CuDxrZUwJhmny2hof3eo cTq4VxJ4CTDpvmAwxWoa RKF0s2FaLg17E51i IHdpZHRoPSIxNSUiIHZh vSuwde4yjC0oUf0+PGNv uBE7bIY3nH6vEzXfHpY3 HHswF376UrXhpNPz Ckahq4zwh4hhlPg2IkXj VLDniuHihKozRQB1e4Xx Nh21V9SchWpfk4PtVeo5 ab30yYWvf4M5yQN5 D5NcJJEncfzcgFYqeSog IZ0sIVNuxnrmEBDlfC7q FRHnK4x9DdTfHdI0ZTpu X8GdvbH1NQObgGWa OLsdHCE1H89zq5W6CATj AGMqZAD2wRG8dS7bxDwo bjogbGVmdDsgdmVydGlj RPjmYMhnW679KCCv uGxtBPSfmU1gFFGfnXOg sZipIO4nFYXgalxzUsQO VUiVIHkvS6LVCCrXWcsZ VN37IF78rICdp9V8 tJM6I9LnLHVhlykzazut zNS5TGEtOVNoaZ14tSDg ISsbWf2qz6T2x113SLUf OKUmsX35Fr1apHbd EUDpqSZHmB5mzyjxj2pq cnwqRzKrFUWlUTl5ZNl3 FHBgqCsyBnZwJON1SvA6 OBT8tTFvzN7ojPaz vqtrbM6lLtt+MDIvMTkv MjAwMzwvdGQ+PHRkIHN0 uXquIZfrGIEquB0gUIEz D4k4ScMbGnR8CYjw G0MlNTEyxmchTf63vL8k EsQyJlD8GGzxU5KnzeS8 FYXjiIBoUPaxDKB4X68a v7A2MIVeRPYjQKC2 nRZ3pM9ziGjcgelvuPLp dDsgdmVydGljYWwtYWxp E036HRUknJihJrP2FHwq QLTjTP21UN89wKBw k5Y9gVJ8P4XxYHKppqvt bsjqrJB4TUNaKDGgaC58 jIAdKQpwPj8zm8D1y787 SXZjJZRfaN08Pt6j hYfaZGBhgJZDcQ4louts v7rzpijtXaDeQYGrRJs4 EUr7MTLffNfpQgScVFP9 KeS0SWB4bRHuyO8y rUcwqjpcrP0xEup+RmVt SNgqED89HD56qJQwj0X1 kFH4W0TfLDHphvgmleym tIG5KODfDTEooO32 yPQjKFjlZf7qh8O7h206 RODjBHBigU54Ot6waOyt NQRxuRVXaR0obaapk2je cjogIzAwMDAwMDt0 FDx5TDRnmCclAnLjEDW6 XqB0COR5sWTniA6zuRev ypotoL1qDbb+SX8znkdv yaE4SK49WO87Y9Jy PjwvdGFibGU+PHRhYmxl IHdpZHRoPScxMDAlJyBz aVesRT8nJt8tBKXdOBEy gXmdjFSnOwSmo4rc FNQlZXhrHQ7eoTrkT9Tm lAN9YBXki0u1Wb69S08d J3VwlWC+HKLhnPX0oCB2 rK6jEzLaDiA1MPnb L501SlQooWWmOjyvy8ld a3tkuZx9HnOzSTPaguOi zNebTHX9k4OrVo88J44f IHdpZHRoPSIyMCUi VMOwcAgqcf0hyS9cNs6+ SVOoiKQ5kMM2tW5bYgSs YxO6AOckD072UjAiqSUw WldsX59hX3NahSC+ FPYeHxg9YSDilLucEV8n hUWbXKlwZh2tDYK0OuCy TzEtZFzhW9FmYOUimrro vrblvJM4MEYaMJCu zT47Ax1khJfuAd3gRNWo ZOR1LNSxmNMhS7XdoH7w GwMcFFOaVWDtL3DfvVSs RRkkG312RWbbMzS8 LVMfbxRiH0RqYEJefCki DwS4w6Y8Sj4WyRiuyBHq ER5uCxEnAVu4N1IwHwz2 WOMgqAkxBD7psMUf OMdoQn8moOhllUzeZW0d MQHqopqsv038CwYpg2va SOVxyRBhJGkdCNQ2K63v y2G4CQMnIOHgJFP5 sXN6aT3rwFoqzsdkyFDa dDsgdmVydGljYWwtYWxp S055FWLfsYrsGlJWGub9 N3XoAuw4JFBxaZhy AT6fuLLkMKrjVn5geApq mZpvOQ5fFVNgskbgh232 LjNki2gxWDHemGYmWRrv NOL2D35so3Q0LZCy QZJgLJZ9yEE5dO6fnOwi bjogbGVmdDsgdmVydGlj SDscUHwrW724MVOhiEzw Ew5RNit4U3WvHql1 VWNygOywLG9gqDUtMOfb Ok6vkSyptCvaBU3dISJj rtslg558NbPvy6jvZOPd sSTvEIwhQVI2U06e e9S0ISGeVIDvMXA0rKL6 rF3bkKqxhdhloMNglUkj zmKueMvbQHpdLMsrQ931 IHRvcDsnPlBheWVy OjwvdGQ+XD90vj06O2Rz KklqTzf1NBGiEJJ6gYM5 gO2zNUEfZZxxy6N2dSE4 T4HefpXuul6rb5uj YXBz (more content not included)... Normal [facility] Auto Diffon 02-13-2022 Basophils/100 WBC (Bld) 0.9 % Normal 0.0-2.0 [facility] Comment on above: Order Comment: Order Added by Discern Expert. Performed By: #### 2 481956, 7811310, 41441823, 7695163, 10799261 ####[address] [place] [address] Basophils/Leukocytes Auto (Bld) [Pure # fraction] 0.1 E9/L Normal 0.0-0.2 [facility] Comment on above: Order Comment: Order Added by Discern Expert. Performed By: #### 2 648494, 2738995, 78027613, 6398686, 15575548 ####[address] [address] Eosinophils/100 WBC (Bld) 0.6 % Normal 0.0-8.0 [facility] Comment on above: Order Comment: Order Added by Madeleine Expert. Performed By: #### 2 324029, 6403779, 17585754, 9764947, 64014511 ####[address] [address] Eosinophils/Leukocyte s Auto (Bld) [Pure # fraction] 0.0 E9/L Normal 0.0-0.5 [facility] Comment on above: Order Comment: Order Added by Madeleine Expert. Performed By: #### 2 357283, 5978260, 95458192, 4158482, 68464351 ####[address] [address] Lymphocytes/100 WBC (Bld) 46.4 % Normal 14.0-50.0 [facility] Comment on above: Order Comment: Order Added by Madeleine Expert. Performed By: #### 2 079603, 6607796, 73028455, 9928545, 02228964 ####[address] [address] Lymphocytes/Leukocyte s Auto (Bld) [Pure # fraction] 3.1 E9/L Normal 1.0-4.0 [facility] Comment on above: Order Comment: Order Added by Madeleine Expert. Performed By: #### 2 893196, 6024029, 50971147, 9659183, 42462669 ####[facility] [address] [place] [address] Monocytes/100 WBC (Bld) 8.2 % Normal 4.0-14.0 [facility] Comment on above: Order Comment: Order Added by Discern Expert. Performed By: #### 2 948379, 6128610, 85134944, 7901811, 63630480 ####[address] [place] [address] Monocytes/Leukocytes Auto (Bld) [Pure # fraction] 0.6 E9/L Normal 0.2-1.0 [facility] Comment on above: Order Comment: Order Added by Discern Expert. Performed By: #### 2 889491, 1301287, 14473807, 6415355, 08534649 ####[address] [address] Neutrophils/100 WBC (Bld) 43.9 % Normal 36.0-75.0 [facility] Comment on above: Order Comment: Order Added by Discern Expert. Performed By: #### 2 813891, 0015608, 97949957, 3548820, 56081683 ####[address] [address] Neutrophils/Leukocyte s Auto (Bld) [Pure # fraction] 3.0 E9/L Normal 2.0-7.5 [facility] Comment on above: Order Comment: Order Added by Discern Expert. Performed By: #### 2 103558, 9601327, 56471796, 8009767, 48208882 ####[facility] [address] [place] [address] BB Draw & Holdon 02-13-2022 BB D&H Sample drawn for Blood Ba Normal [facility] Comment on above: Performed By: #### 2 620924, 8261627, 29142509, 1587231, 56060089 ####[address] [place] [address] CBC w/ Auto Diffon Erythrocyte distribution width (RBC) [Ratio] 13.3 % Normal 10.9-14.2 [facility] Comment on above: Performed By: #### 2 287294, 4824866, 38843913, 9797132, 98374177 ####[facility] [address] [place] [address] Hematocrit (Bld) [Volume fraction] 34.1 % Normal 34.0-46.0 [facility] Comment on above: Performed By: #### 2 238066, 8058593, 82711463, 6159543, 73446366 ####[address] [address] Hemoglobin (Bld) [Mass/Vol] 11.7 g/dL Low 12.0-16.0 [facility] Comment on above: Performed By: #### 2 401377, 2801143, 29352707, 1130234, 92123976 ####[place] [address] MCH (RBC) [Entitic mass] 29.9 pg Normal 27.0-34.0 [facility] Comment on above: Performed By: #### 2 518894, 8400718, 12503796, 9089274, 80554865 ####[address] [address] MCHC (RBC) [Mass/Vol] 34.4 g/dL Normal 31.4-36.0 [facility] Comment on above: Performed By: #### 2 167196, 9975039, 49121126, 7253115, 29134204 ####[facility] [address] [place] [address] MCV (RBC) [Entitic vol] 86.8 fL Normal 80.0-100.0 [facility] Comment on above: Performed By: #### 2 269906, 1471422, 98976966, 9915237, 68877900 ####[address] [place] [address] Platelet mean volume (Bld) [Entitic vol] 7.9 fL Normal 6.4-10.8 [facility] Comment on above: Performed By: #### 2 292194, 2886626, 43392318, 1515317, 08593292 ####[facility] [address] [place] [address] Platelets (Bld) [#/Vol] 329.0 E9/L Normal 150.0-500.0 [facility] Comment on above: Performed By: #### 2 758553, 5685774, 16682878, 3255463, 35647701 ####[facility] [address] [place] [address] RBC (Bld) [#/Vol] 3.9 E12/L Low 4.3-5.9 [facility] Comment on above: Performed By: #### 2 083570, 0753552, 67899495, 7284184, 32910167 ####[facility] [address] [place] [address] WBC corrected for nucl RBC Auto (Bld) [#/Vol] 6.7 E9/L Normal 4.0-11.0 [facility] Comment on above: Performed By: #### 2 296780, 8162505, 16706157, 5485438, 12875270 ####[facility] [address] [place] [address] CHEMISTRYOrdered By: SYSTEM SYSTEM on 02-13-2022 Albumin [Mass/Vol] 4.3 g/dL Normal 3.3 - 5.0 gm/dL FT Remisol Albumin/Globulin [Mass ratio] 1.3 {ratio} Normal [...] rate/Area] mL/min/1.73 m2 Normal >=59mL/min/1 .73 m2 [facility] S GFR/1.73 sq M.predicted among non-blacks MDRD (S/P/Bld) [Vol rate/Area] mL/min/1.73 m2 Normal >=59mL/min/1 .73 m2 [facility] S Globulin (S) [Mass/Vol] 3.2 g/dL [...] 02-13-2022 Albumin [Mass/Vol] 4.3 g/dL Normal 3.3-5.0 [facility] Comment on above: Performed By: #### 2 426703, 3469999, 56249059, 8467797, 06937374 ####[facility] [address] [place] [address] Albumin/Globulin (S) [Mass conc ratio] 1.3 Normal 1.1-2.2 [facility] Comment on above: Performed By: #### 2 787980, 0306086, 76713331, 7552740, 42428061 ####[facility] [address] [place] [address] ALP [Catalytic activity/Vol] 55 Int._Unit/L Normal 21-98 [facility] Comment on above: Performed By: #### 2 444903, 0052059, 74705528, 5231922, 03561857 ####[address] [address] ALT No additional P-5'-P [Catalytic activity/Vol] 12 Int._Unit/L Normal 6-46 [facility] Comment on above: Performed By: #### 2 495451, 8065007, 93386108, 4486927, 01996192 ####[facility] [address] [place] [address] AST [Catalytic activity/Vol] 15 Int._Unit/L Normal 5-43 [facility] Comment on above: Performed By: #### 2 913364, 4003221, 60304957, 5036573, 93083041 ####[facility] [address] [place] [address] Bilirubin [Mass/Vol] 0.4 mg/dL Normal 0.0-1.1 [facility] Comment on above: Performed By: #### 2 277327, 8773645, 15255824, 2891400, 99996518 ####[facility] [address] [place] [address] Creatinine [Mass/Vol] 0.4 mg/dL Low 0.5-1.3 [facility] Comment on above: Performed By: #### 2 646607, 3319056, 00391960, 7864501, 45589667 ####[address] [address] Globulin (S) [Mass/Vol] 3.2 g/dL Normal 1.4-4.0 [facility] Comment on above: Performed By: #### 2 570892, 9981072, 82386352, 6845116, 55119899 ####[facility] [address] [place] [address] Protein [Mass/Vol] 7.5 g/dL Normal 6.0-7.8 [facility] Comment on above: Performed By: #### 2 448352, 2871083, 69942383, 8086830, 72988587 ####[facility] [address] [place] [address] Urea nitrogen [Mass/Vol] 14 mg/dL Normal 5-21 [facility] Comment on above: Performed By: #### 2 478241, 3068561, 92666582, 7255366, 71878684 ####[facility] [address] [place] [address] Urea nitrogen/Creatinine [Mass ratio] 35 No Units High 10-20 [facility] Comment on above: Performed By: #### 2 630447, 1297491, 44878021, 0804203, 74109605 ####[facility] [address] [place] [address] Anion gap [Moles/Vol] 10 mmol/L Normal 6-16 [facility] Comment on above: Performed By: #### 2 123565, 4384442, 05418976, 7906404, 35335962 ####[facility] [address] [place] [address] Calcium [Mass/Vol] 9.2 mg/dL Normal 8.9-11.1 [facility] Comment on above: Performed By: #### 2 986345, 5843455, 51689018, 3302694, 25320998 ####[facility] [address] [place] [address] Chloride [Moles/Vol] 107 mmol/L Normal 101-111 [facility] Comment on above: Performed By: #### 2 158439, 5119065, 73711799, 3045630, 94391656 ####[facility] [address] [place] [address] CO2 [Moles/Vol] 23 mmol/L Normal 21-31 [facility] Comment on above: Performed By: #### 2 294864, 9699412, 42944295, 9483211, 96436000 ####[facility] [address] [place] [address] Glucose [Mass/Vol] 87 mg/dL Normal 55-199 [facility] Comment on above: Result Comment: If t his glucose result represents a fasting glucose, interpretation should refer to the following reference range: 55-99 mg/dL Performed By: #### 2 735198, 9085235, 09571428, 0919202, 21949035 ####[facility] [address] [place] [address] Potassium [Moles/Vol] 3.8 mmol/L Normal 3.5-5.3 [facility] Comment on above: Performed By: #### 2 054825, 4245991, 36424393, 6036108, 22515029 ####[facility] [address] [place] [address] Sodium [Moles/Vol] 136 mmol/L Normal 135-145 [facility] Comment on above: Performed By: #### 2 522222, 7991605, 47070278, 6582298, 59082878 ####[facility] [address] [place] [address] Consent for Treatmenton Consent for Treatment [id number] #1.00CD:127 Normal [facility] Discharge Instructionson Discharge Instructions [id number]# 1.00CD:127 Normal [facility] ED Clinical Summaryon 2021 ED Clinical Summary [address] [address] ED Clinical Summary Person Information Name: MARIBEL VELEZ/New_Tyrell Age: 21 Years : 2000 Sex: Female Language: Mongolian PCP: CAITIE MARSHALL CNP Marital Status: Single [...] 02/13/2022 07:28:36 02/13/2022 07:28:36 ADDRESS: [address] [facility] [id number] PHYS DOC NOTES: Addendum by Kevin Santoro DO on February 13, 2022 07:22:06 EDT MEDICAL INFORMATION: Prescriptions Given: New Medications [facility]/pharmacy #[id number], [address], [place] [id number], [phone] pramoxine topical (ProctoFoam 1% Foam) apply By rectum 2 times a day for 7 Days. Refills: 0. Medications to Continue with No Changes Other Medications ethinyl estradiol-norgestima te (Sprintec oral tablet) Ib By Mouth every day. ibuprofen (ibuprofen 600 mg Tab) 1 Tablets By Mouth every 6 hours as needed as needed for pain. PATIENT EDUCATION INFORMATION: Instructions: Rectal Bleeding, Mxru-lo-Ufbt; Hemorrhoids, Xttb-zq-Dggf Follow up: With: Address: When: [facility], [address] [place] [address] Business (1) In 3 days 02/16/2022 With: Address: When: CAITIE MARSHALL In 3 days DIAGNOSIS: Acute hemorrhoid Normal [facility] ED Note-Physicianon 02-14-20 ED Note-Physician [...] change or worsen. Diagnosis: Rectal bleeding Normal [facility] Comment on above: Result Comment: [...] 02/10/2012 Document Revised: 05/13/2018 Document Reviewed: 07/26/2016 [employer] Patient Education ? 2019 [employer] Hemorrhoids Hemorrhoids are swollen veins that [...] times a day. General instructions ? Take vvuo-szb-jwmoyiv and prescription medicines only (more content not included)... Normal [facility] ED Patient Summaryon 022 ED Patient Summary [address] [address] Patient Discharge Instructions Person Information Name: MARIBEL VELEZ Age: 21 Years Arrival Date: 02/13/2022 06:16:54 Discharge Diagnosis: Acute hemorrhoid Primary Care Physician: CAITIE MARSHALL CNP Provider Information Primary Provider: Ana Braxton DO Advanced Commercial Teller:None The exam and treatment you received in the Emergency Department were for an urgent problem and are not intended as complete care. It is important that you follow up with a doctor, nurse practitioner, or physician?s cardiovascular physician assistant for ongoing care. If your symptoms become worse or you do not improve as expected and you are unable to reach your usual health care provider, you should return to the Emergency Department. We are available 24 hours a day. MARIBEL VELEZ has been given the following list of patient education materials, prescriptions and follow-up instructions: Follow-up Instructions: With: Address: When: [facility], [address] [place] [address] [place] [address] Business (1) In 3 days 02/16/2022 With: Address: When: CAITIE MARSHALL In 3 days In the event that this physician does not participate in your insurance network, please consult with your insurance company to find a nearby participating provider. Patient Education Materials: Rectal Bleeding, Hdcg-rl-Krjw; Hemorrhoids, Nbxl-bm-Krff A MESSAGE TO ALL PATIENTS REGARDING OPIOIDS PRESCRIPTION OPIOIDS: WHAT YOU NEED TO KNOW Prescription opioids can be used to help relieve etliramj-tc-tnyvjy pain and are often prescribed following a [...] care professi (more content not included)... Normal [facility] HEMATOLOGYOrdered By: SYSTEM SYSTEM on [...] 3.0 E9/L Normal 2.0 - 7.5 E9/L FT [facility] HEMATOLOGYOrdered By: Edie Martini on 02-13-2022 Erythrocyte distribution width (RBC) [Ratio] 13.3 % Normal 10.9 - 14.2 % [facility] Hematocrit (Bld) [Volume fraction] 34.1 % Normal 34.0 - 46.0 % FT [facility] Hemoglobin (Bld) [Mass/Vol] 11.7 g/dL Low 12.0 - 16.0 gm/dL FT [facility] MCH (RBC) [Entitic mass] 29.9 pg Normal 27.0 - 34.0 pg FTMC [facility] MCHC (RBC) [Mass/Vol] 34.4 g/dL Normal 31.4 - 36.0 gm/dL FT [facility] MCV (RBC) [Entitic vol] 86.8 fL Normal 80.0 - 100.0 fL FT [facility] Platelet mean volume (Bld) [Entitic vol] [...] MDRD (S/P/Bld) [Vol rate/Area] mL/min/{1.73_m2} Normal >=59 [facility] Comment on above: Order Comment: Order added by Discern Expert. Result Comment: eGFR is race adjusted. AA=. Performed By: #### 2 [id number] ####[facility] [address] [place] [address] GFR/1.73 sq M.predicted among non-blacks MDRD (S/P/Bld) [Vol rate/Area] mL/min/{1.73_m2} Normal >=59 [facility] Comment on above: Order Comment: Order added by Discern Expert. Result Comment: Foot Caster linwood kidney disease could be indicated at eGFR's of less than 60 mL/min/1.73m2. Kidney failure is indicated at less than 15 mL/min/1.73m2. Performed By: #### 2 [id number] ####[facility] [address] [place] [address] Coding Summary.on 02-06-2022 Coding Summary. CD:[id number] Gh0bWw+PGhlYWQ+PE1FV GBnZ85iyNZezK7XG0zBR P5GWINYJKFKCE9OCJ0jf YZ6SAqeG4GhocQa UzzhgQGeLE78MQf6QSG1 iRxeXHyyyH0bdHGrT8i2 ImOmLR23jM56FRrzWFLv AlN1HyVjlwjzwYLe E4rlVqDzcPByBwy+PHRh YmxlIHdpZHRoPScxMDAl BzMzkBrpLL9pHf0eNTGb LWNvbGxhcHNlOiBj c3ztKKHjHFuyCZ5xcKpx O7EyuJX0WLDpj9u9Hc24 dHI+JBSqYFH7kIgwYKgy g732XpTat4upHBD8 oSPiLIqaWIW9F88ht5W1 QGBfQBEnDLA0wOU6gA7l lLjjjqqyU5PujYBqUrY6 AJY0bXXjlH5jsNrk sfzvcP6zVvz+E29WXN9H JXIVGE8WXwm9S6AdSbwj dHI+NX83BDDjFM87jKTq hKXwh8vemVp8TbFx ZWIbUZC7tWuuXNvce0Dw QNVjR70qyITud7T5ARZr qLkogKYaWaEjkIF9cE7d WZkvzvmxw8wicgjx Zyvep9cvji72yI74O37x WZhiFFTuTHF3MMChZINi rBtyow6ccQ6jWc7+IDxj h0eac5qibGe8TqRf WFTvejHdqHuzPEF6v4Jl Kf87P9JifNwqg8GtWpj4 hq33kULsz7Z3eAG7QIpy KFRdcU9gPUptEyC2 PODcKkUooF90uERvNObn Mt9djVfzlOwrEY7hIITs lztnSIBztE6nIABspRVo jNfvFG8tAJEvbugj v825RzGzTOA0ZTCdqLGg D5DgzY6jDeRrJQFcWTSy D8EnoNSzJLqnX357HBoq FiY7UEJchmRsW1Xy DAWgxOylNwC3c8J8Kz6J o8FnbixvCAV5JDcdKSJ9 CeB9PcKvVqR5J0FiGba8 JTAxoPodEO0oZ9Do YZGmdpqsmcunhUW2ZYCu HOYefC78oHYuWEcsEl0g q7P9z512PZFoWCKsnI44 Za7tpQbfCQBzaAHI yG2cdwrcw8wysyhzLxVu AXQaNLg8DCl1OGIidHax GcUqHPK1YuF0DIT0wZWh lS5onWqjbdrdkM8c Oyc+R56dkX1xGJG9OIT0 akzzWVXpwpCsSF82RX18 B1QcMqivgKIteBG+PGRp eyTujDgjXL2bPoEc i5sta2PsKSdgU0RpJTZq MVoyFjh8YPFhZDT6fWB6 tR3kKBSpOPdzq5N9zLC3 A1ChdqYiun7om7gi SKCwJNbpM18qbXQts6W0 FBSksGV7HHBwyQpqYrNv yA70Lwj+AKGqqXblu0Ni Ofqad5nkw1yqqRj5 IjMwJSIgdmFsaWduPSJ0 d9HcHf24C99rQUyjSOKe NKQzJDGyYNSngXutwl9a eK9eJc4+PGNvbCB3 qWI9uA0mGFZaSkR2KXcq C531KrBipOPdLcsac0dt y4zolXt6DtAkECAfnhUm jCzhYIF5s8IgLn75 Q96uUEiaBUNbVYFbXFTi QTJkvNtngs7bmX1wMe7+ DZ2mq0uthf64hN22aTP+ JETbJFK4pLdaGLrn ZQAfsB2pQYqmYwJ7IPNj ZmPsfN28tTWaFFaiLo1b vGjvpHvtBW1hEYRmvenr d191TbKbo0vnTTOg cZGaEHohIFV2O82wk3U9 MEEuJPGdFOZ9lXW0gQ3j bGlnbjogbGVmdDsgdmVy bWcoKGybTEtqZ944 IHRvcDsnPlBhdGllbnQg WtIhXAy6S7HdOkp2OPYe jPmbFK7hmIVhQMvlJg0p mMlsqMfgDT8xDOPb eeaid839EfDtw0irXRHg yPVgWDkxYKY6H52np9K7 STFvDUQdMZY1rHE5gH8d bGlnbjogbGVmdDsg zlUkmCgiFMowOLdtK837 IHRvcDsnPkJpcnRoIERh fQO8MU03MY47mKCrm8O0 sXN4G1QvAQNutles jzuqxEU2DFMhQYZqdC11 Lf7swItyJi9hJWTtKVD9 UCAbiYTvU8ZdoN9lGrEd QDUqLZAoM4HqoNId GUqwH765EBxbHbG9CETp gaMgN4IxTOZdlFftMjD7 g5J3Fl2RN9B4JO82AA28 bMSzw4D2rAS1X3Bt BAMkbcsqszelhEX8QHIu NIKrbA05Cp1pgJoyJx9y LPBcOMR6SQLvjHVeK4Nf sA4dRzPaQYIgLGDn D3OhwRZuGOsnO523QLbk RoQ5GGGvowMwD7AmXCYe oEldHrZ7c6V9Jl4NWMl2 DK54GB26qJWfp2A1 rBM3F9PxYAMcamyawqxu eTG0LUZpOJXhiA51Oc2x uPtaHg8dZDBxMBE3MHMz cGFyE2QucH8uHdPf HSMyDRMuV9LolOAxPOyi R452ONxxPkX3IXSnyiWc S2InWLLyjBskJbU7b2I1 Cd9XKRMdIX07MVB8 fDM1ZT16MB39D9YrCdbl dGFibGU+PHRhYmxlIHdp ZHRoPScxMDAlJyBzdHls BR5gEi1gQJSmNJWh zCpgnQAlLlLyw1niPJLw MIiqMV7rwUmjB8KspOG5 TFQbr8t1Sn95S54oC3Yp dXA+FLYtgPE1pWW7 dF2uDhOzElT9OMdrK200 CnUrtNGmVktta9cvc3ly sIp0EtY9GFMgwpZdnJbt HSM5l8UcJa49X82p IHdpZHRoPSIxNSUiIHZh vOxmrj6kuX7kWw6+PGNv dXC9qKE9oX5pSeTvHgS1 UZvvC202HnIktHSi Rkdoc4oxi1hczFd2IhBy LYMbpdNozNvuLBY1s1Go Cy42E8LphJdjx8XeLao2 pm63fUQlp1F5rSH0 X1GrDWKuawivxNSxgQmg QX1pFXNgcbbdMLBrqF0g FAYfT8i0IuGlXxI9ZAqm U7FgpxD8NWDulFTm WDziBPJ5P74jl6R0LXVd JBWaMZJ8nTF1wL9xlUns bjogbGVmdDsgdmVydGlj OWgvKNynY748WONk nDlbLXByqL3vSNEfoOUd oFykSY9gUYLzeertAySV UBjZKQonJ4ZKCHxFYfrH YF22BZ94yJArh3B6 wCP8W6WgRXQteucfhsqr tYE3MZFxLYLxtI11fKCx WDbaZv0tg2F5a595FSGi DIXvsL08Uh0sbErz BAVunOZWbN5xqbifi8nl fxdtZpUmTRKeUSi5QMp7 AXIleUroEqEbRFW1XsR9 SUK8oBJgdT3ttHub nijsjE4vBdy+MDIvMTkv MjAwMzwvdGQ+PHRkIHN0 uTyuUHafCMXjcS3vLBKk E6y0JbLpInF6YJoj V6EmYXSapsdgAl88aK6y MkXtBrU9XXpfU3HfvhM2 ROKejRHaLUwxVSK1Q44d b9U8FNEaGRDzRWZ0 tIU7lE8adAwccktjcYOd dDsgdmVydGljYWwtYWxp Q320VTMuhKzuKdK4BEwl KFReAA65WP10oLJz s3L4kAZ9S7ByTPZiloeo dcgtjTJ3COXiSVRggO48 hYSjGLwiZx2hi7T9j775 GYUvVBIyoE71Ho8w sLxyDHLjoYVXlJ8plbws j9ouebasLnRbHMFzBLh6 BGj5UHXisTdoIcGtKEE1 SuO6BBI5lZJeqX0y aUnqaxdmjX5xGed+RmVt XJsdKC33TX09yOZfo0M4 gYM1V1OtBUYyakfbregm rUS5NPNaNAZakS42 rGGgCJglHv9hc9C1t532 PKRpRRFccC11Tv6wyMsh PNZjhUUWoD9wzhccq3ph cjogIzAwMDAwMDt0 MHw0JQWqxNzpDlTmYLI3 StY3GGW0nSAtvO0izIhj vdrfvF7cHom+R6H9mBS5 aWVudDwvdGQ+PC90 yo80W8QrRscbTzd4WMWq CDC7jIB8qK4yKRXxAPwn i1O2dIH1B1MlqdQrxm6c s7kmLIDgXUpmM85f hYOvf2R8HHJdmBK4CVIu fAguPbUmxV78Ohs+PGNv uAcgs4HfEzyrt9wjb4um nLe7SoIqVATxyhJh qJpuCGQ3j0DhEu25O43p IHdpZHRoPSIzMCUiIHZh tRadvy9enH5sPj0+PGNv kTC1zQJ8lR7iGaUo EvP3KMptR313WzCgyITf Ibgex4ayt1ozmDl4UoKz WJBmkwDjmNuyYIX6h9Li Tm99T6OceYtre1Cz Rdw9lq60dPMnb9P0iDH5 V9DsWYOdulfcpSLxcLlf TR2xSDNivramPSUtxO3f WIHcV3f5VhEnHpG1 MKmqZ5DvacD8VOGrwINl GSJouWCZwI9bqbjbu6in xqgiThGsVAEvPOw3DAg9 LWFsaWduOiBsZWZ0 PeR5UZZ4jFLorE3snFnj mrlmyD7oCkk+XGu4a1mp sHDnDJ5toRK8BG56KC50 oWKvp5G8wLC0Y3Su RUKbojioengipCW8CWEj HCRawW46Sw5fuPmaYm1d NGFhBTK3LYYlsFOsW1Uy dX9lJkAcWZTaNZKj Y4BirCBlHAsoC895AHns ZzF0RYJhstQpG4MmQNIh mIceJtR0a3M6Fm5DWE68 KR30XP43zLVke1S7 rWH6O1KpNIIkamvehnts vLA1PPWyQNCulW20Pd7b wPpcFa0uPDBwLCA0NCHj nSTzM0ZvhG9lOdQs MMEvJEPwZ8HerSDlSGet S491SRtsFfO9YDFnnkYt P1TeQZEcmSktXsH0u3K5 Bm6UEv95DW38AG24 iSDjr4V3qOL6N4UoSRFg ysnelfzziBM3OTDkOMIx zB30Zb6njDfeKf6nOZYb CIO3CPLgbAYfW2Hj eE5oNoSvIOAxSEFrX4Ds yDGnMIgvW632MAmzUoO4 MJQrleSnH9ClMZChbLty JpB6e2D0Ra1TPKjv mgz9M7BrQlciwBT+PC90 UIPwZK75rAUgoVByw2td mEv0UrSsCPXcAYJ6gRve ODjpf4YeXBNyW48c bGFw (more content not included)... Normal [facility] Consent for Treatmenton 01-13 Consent for Treatment [id number] 20 [id number] #1.00CD:127 Normal [facility] Physician Orderon 02-03-2022 Physician Order [id number] #1.00CD:127 Normal [facility] XR Shoulder Complete Righton 02-03-2022 [...] M.D. Transcribed by: CHRIS Technologist: JULITO Hanson [facility] CBC AUTO DIFFon 01-15-2022 BASO # 0.0 103/ul Normal 0.0-0.1 [facility] Comment on above: Performed By: #### C BC #### [facility] [address] [address] [address] Venancio Soriano Basophils/100 WBC (Bld) 0.6 % Normal 0.2-2.0 [facility] Comment on above: Performed By: #### C BC #### [facility] [address] [address] [address] Venancio Soriano EO # 0.1 103/ul Normal 0.0-0.7 [facility] Comment on above: Performed By: #### C BC #### [facility] [address] [place] [address] Dr. Venancio Soriano Eosinophils/100 WBC (Bld) 1.3 % Normal 0.9-7.0 [facility] Comment on above: Performed By: #### C BC #### [facility] [address] [place] [address] Dr. Venancio Soriano Erythrocyte distribution width (RBC) [Ratio] 12.8 % Normal 11.0-15.0 [facility] Comment on above: Performed By: #### C BC #### [facility] [address] [place] [address] Dr. Venancio Soriano Hematocrit (Bld) [Volume fraction] 36.5 % Normal 36.0-48.0 [facility] Comment on above: Performed By: #### C BC #### [facility] [address] [place] [address] Dr. Venancio Soriano Hemoglobin (Bld) [Mass/Vol] 12.2 g/dL Normal 12.0-16.0 [facility] Comment on above: Performed By: #### C BC #### [facility] [address] [place] [address] Dr. Venancio Soriano IG # 0.01 10e3/ul Normal 0.00-0.03 [facility] Comment on above: Performed By: #### C BC #### [facility] [address] [place] [address] Dr. Venancio Soriano IG % 0.2 % Normal 0.0-0.5 [facility] Comment on above: Performed By: #### C BC #### [facility] [address] [place] [address] Dr. Venancio Soriano LYMPH # 2.7 103/ul Normal 1.2-3.8 [facility] Comment on above: Performed By: #### C BC #### [facility] [address] [place] [address] Dr. Venancio Soriano Lymphocytes/100 WBC (Bld) 42.9 % Normal 20.5-60.0 [facility] Comment on above: Performed By: #### C BC #### [facility] [address] [place] [address] Dr. Venancio Soriano MANUAL DIFF REQ NO Normal [facility] Comment on above: Performed By: #### C BC #### [facility] [address] [place] [address] Dr. Venancio Soriano MCH (RBC) [Entitic mass] 29.4 pg Normal 26.7-34.0 [facility] Comment on above: Performed By: #### C BC #### [facility] [address] [place] [address] Dr. Venancio Soriano MCHC (RBC) [Mass/Vol] 33.4 g/dL Normal 29.9-35.2 [facility] Comment on above: Performed By: #### C BC #### [facility] [address] [place] [address] Dr. Venancio Soriano MCV (RBC) [Entitic vol] 88.0 fL Normal 81.0-99.0 [facility] Comment on above: Performed By: #### C BC #### [facility] [address] [place] [address] Dr. Venancio Soriano MONO # 0.5 103/ul Normal 0.3-0.8 [facility] Comment on above: Performed By: #### C BC #### [facility] [address] [place] [address] Dr. Venancio Soriano Monocytes/100 WBC (Bld) 7.2 % Normal 1.7-12.0 [facility] Comment on above: Performed By: #### C BC #### [facility] [address] [place] [address] Dr. Venancio Soriano NEUT # 3.0 103/ul Normal 1.4-6.5 [facility] Comment on above: Performed By: #### C BC #### [facility] [address] [place] [address] Dr. Venancio Soriano Neutrophils/100 WBC (Bld) 47.8 % Normal 43.0-75.0 [facility] Comment on above: Performed By: #### C BC #### [facility] [address] [place] [address] Dr. Venancio Soriano Platelet mean volume (Bld) [Entitic vol] 9.5 fL Normal 9.5-13.5 [facility] Comment on above: Performed By: #### C BC #### [facility] [address] [place] [address] Dr. Venancio Soriano PLT 323 103/ul Normal 150-450 [facility] Comment on above: Performed By: #### C BC #### [facility] [address] [place] [address] Dr. Venancio Soriano RBC 4.15 106/ul Critically low 4.20-5.40 [facility] Comment on above: Performed By: #### C BC #### [facility] [address] [place] [address] Dr. Venancio Soriano WBC 6.2 103/ul Normal 4.0-11.0 [facility] Comment on above: Performed By: #### C BC #### [facility] [address] [place] [address] Dr. Venancio Soriano PROF 14(COMP METB)on 022 Albumin [Mass/Vol] 4.0 g/dL Normal 3.4-5.0 [facility] Comment on above: Performed By: #### C MP #### [facility] [address] [place] [address] Dr. Venancio Soriano Albumin/Globulin [Mass ratio] 1.2 {ratio} Normal [facility] Comment on above: Performed By: #### C MP #### [facility] [address] [place] [address] Dr. Venancio Soriano ALP [Catalytic activity/Vol] 67 U/L Normal 46-116 [facility] Comment on above: Performed By: #### C MP #### [facility] [address] [place] [address] Dr. Venancio Soriano ALT [Catalytic activity/Vol] 16 U/L Normal 14-59 [facility] Comment on above: Performed By: #### C MP #### [facility] [address] [place] [address] Dr. Venancio Soriano Anion gap [Moles/Vol] 11.8 mmol/L Normal [facility] Comment on above: Performed By: #### C MP #### [facility] [address] [place] [address] Dr. Venancio Soriano AST [Catalytic activity/Vol] 9 U/L Critically low 15-37 [facility] Comment on above: Performed By: #### C MP #### [facility] [address] [place] [address] Dr. Venancio Soriano Bilirubin [Mass/Vol] 0.3 mg/dL Normal 0.2-1.0 [facility] Comment on above: Performed By: #### C MP #### [facility] [address] [place] [address] Dr. Venancio Soriano Calcium [Mass/Vol] 8.6 mg/dL Normal 8.5-10.1 [facility] Comment on above: Performed By: #### C MP #### [facility] [address] [place] [address] Dr. Venancio Soriano Chloride [Moles/Vol] 106 mmol/L Normal 98-107 [facility] Comment on above: Performed By: #### C MP #### [facility] [address] [place] [address] Dr. Venancio Soriano CO2 [Moles/Vol] 24.9 mmol/L Normal 21.0-32.0 [facility] Comment on above: Performed By: #### C MP #### [facility] [address] [place] [address] Dr. Venancio Soriano Creatinine [Mass/Vol] 0.58 mg/dL Normal 0.55-1.02 [facility] Comment on above: Performed By: #### C MP #### [facility] [address] [address] [address] Venancio Soriano EGFR-AF INDONESIAN >60 Normal >=60 [facility] Comment on above: Performed By: #### C MP #### [facility] [address] [address] [address] Venancio Soriano EGFR-NON AF INDONESIAN >60 Normal >=60 [facility] Comment on above: Performed By: #### C MP #### [facility] [address] [place] [address] Dr. Venancio Soriano Globulin (S) [Mass/Vol] 3.3 g/dL Normal [facility] Comment on above: Performed By: #### C MP #### [facility] [address] [place] [address] Dr. Venancio Soriano Glucose [Mass/Vol] 94 mg/dL Normal 74-106 [facility] Comment on above: Performed By: #### C MP #### [facility] [address] [place] [address] Dr. Venancio Soriano Potassium [Moles/Vol] 3.7 mmol/L Normal 3.5-5.1 [facility] Comment on above: Performed By: #### C MP #### [facility] [address] [place] [address] Dr. Venancio Soriano Protein [Mass/Vol] 7.3 g/dL Normal 6.4-8.2 [facility] Comment on above: Performed By: #### C MP #### [facility] [address] [place] [address] Dr. Venancio Soriano Sodium [Moles/Vol] 139 mmol/L Normal 136-145 [facility] Comment on above: Performed By: #### C MP #### [facility] [address] [place], [place] [address] Dr. Venancio Soriano Urea nitrogen [Mass/Vol] 9.0 mg/dL Normal 6.4-19.3 [facility] Comment on above: Performed By: #### C MP #### [facility] [address] [place], [place] [address] Dr. Venancio Soriano Urea nitrogen/Creatinine [Mass ratio] 15.5 mg/mg Normal [facility] Comment on above: Performed By: #### C MP #### [facility] [address] [place], [place] [address] Dr. Venancio Soriano Discharge Instructionson Discharge Instructions [id number] 3#1.00CD:127 Normal [facility] ED Note-Physicianon 10-23-19 ED Note-Physician [...] Orders: Influenza A&B Ag Rapid [place]position Plan Patient Discharge Condition Stable Discharge Disposition Home Discharge Prescription List Prescriptions No active prescription medications Follow-up With When Contact Information Michelle Mata In 3 days 10/22/2021 EDT Additional Instructions: Patient Education Viral Respiratory Infection, [id number] Attestation This visit was performed by both [...] Diagnostic Results No qualifying data available. Normal [facility] Comment on above: Result Comment: Elec tronically Signed By: Cherry Hazel PA-C\.br\Date and Time Signed: 10/19/21 17:19 EDT\.br\Electronically Co-Signed By: Miko Kaur MD\.br\Date and Time Co-Signed: 10/22/21 10:35 EDT Coding Summary.on 10-20-2021 Coding Summary. [id number] Gh0bWw+PGhlYWQ+PE1FV NUrF22dhRReqU5OB2eBN T1LSAULRCJBWA1LGM8fp DY7VAmwI0EgcyCo WtaqjWPfSL15PDb7PIN4 qKylSGngfB0yqJQcN8u1 DzJgNB38dT95QRgjXSSw WjL2CpPtlvvhyKRu Q2woEnZijTPoMap+PHRh YmxlIHdpZHRoPScxMDAl YiNvcDwaDZ6zIn7dTLUf LWNvbGxhcHNlOiBj p7fcPOFxDNuoAL0yfSwx Z0GilAS4GFJzq8o1Rt58 dHI+XBYsSYK6vPfnTVcs t155QsSum5nlIFN7 gKGiMCovLHR3Y72ji4G8 HILyXLFcDGX7xII5tK1w gMchnzvpJ1DixRJcSpD1 CQB8yMZzxS5nsXux iamttS5zOsy+Z33SIS5G WUUOEY9DZpc0D8HpUmwn dHI+IC09DAFjQP64cPKx pKBah9xqhIk3KeXx MOGqCSP9rDqhIFuxk7Dh CQDsG90vfQCno4S6ENRz eFkavJAxJrZaaAW9hR9f RPhmdcgfo9fxovgj Vldvf1puxu36rG57S84q ROygXBUrMCH2EVRkTCOi tAxjgk6orN1tPx1+IDxj g5kck9fxdYl2UmNd TLWfpxSkcFidYRQ0i5Tj Og23T8ZwrAooj9SbRnq4 sv38iZKkq8M6xDR4FLmb IKNqfT5xFPfdAwS5 LHEfKaCtaH69dDNlXThy Gb0ipYkxoAkbQZ8hUEGf sjljMWQgiQ0nMHAyqUIg uBkhCR8nVIXxlbqq j789XqLhOGB3QYTpbYSf L8NtaR9yZaSyCWMiDQTt B2WndLNqKWanK142OUpm JbK6OZYhifVyY0Iu PFEnqPfoXnO1w8Z4Fi3K o2HwgrhvLLG6VBwbAMN4 KdH4ZhXoAhF4E2FuXrl3 JBDhjLpjYW7mI5Np YBOneeflpkxjzEI8XCZb YHWzkT03iYYhMXzpMb9m i3S5b079PLZuIWSpnJ47 Ds4daJfxSDGxtQYG vC1dfqjoa2exkvvkUbFr YVRnQLs7JZf0VKBmzQyg KxVjCYC0JiA1GPL5xBFk yU9gvKabdfthwJ5d Oyc+D40reL5eFQZ1ZTP6 zncbRWSdsiVwAJ19TO21 G8HsPpjygVQuyHM+PGRp uvCeaBflEJ3gSeWu j9gpj9DbMNouO5AiBYNv ZUpuZuu6DDAiFAE1uCL2 vR0dTAFuSAonn9B1oPQ6 B4OabmKals6xr2le FXKnCXnjK07hlOQyo9X2 GLVpuOS0JUYlmHhrTrBi tQ13Hnm+WDAxyOlyl4Fn Yuvxf0jkq5ngmMl7 IjMwJSIgdmFsaWduPSJ0 m1VaBc93C71wQDpvTBJv GYBwKVFhDIBwvGnamz6h lL1gEx9+PGNvbCB3 iBF8yE4cKZKoFhF1CMby X243JdHyqYKtHtwnz8cz e4mxnTo8GsJwTFSiahKp fUplOJD8b2JzZc92 O22tSRgrPMFwFKZnQNMj XWJgqInkfm2uhF2wVa4+ JJ1sa8olgm41zO67dSB+ JFFiOIG6oMbcULdy WOQyjC5jBUsrPrV2PGUa GzSzeR78jPLmWVnkNp0a qKrdrEqlKM8lZLXjcbqi u173KjSpp8xgDTYh vSQbYDytPOR4G53ga5R2 ALCeNJCnABK5mNG6aK3w bGlnbjogbGVmdDsgdmVy wLpgJNsjWIitK418 IHRvcDsnPlBhdGllbnQg JqWqVUd7U5YqHbl7IGGl zDvfZA6fyMXoJTtrSz8k tIllpSzbRH1jJBXg sighe895CgMul6lbQTHt xGKrZGghIJZ0I04ug6O9 XGVzSKMbWOP9gDS3mA2m bGlnbjogbGVmdDsg ppEacWsjWUezQCgkT687 IHRvcDsnPkJpcnRoIERh wGS2ZW54HY69nRXyl4M1 vVQ6R8UtLEHxofee reepnRG9XQDhFXGyqR00 Ji8vcBwiTr3kMGBbGAM0 FVFguXWiY2OiwD1mUaKm ECGlKJOcK4AefVVm HKfiE151SEidArM8CIIb qjGmF8RxUKNatGsqRhU3 m2N8Wl6US5U8EK19CW26 mCBwc9O8cTX9V6Ng OOQzlbhnmhrtfUG0ZYGa WTEnzV54Ql5uwIerGt5g RKBgYHF2LWHkgPCjO0Wn eW1fZpSgRFZrCWFu O7TnpWRpGVlhP655HFbr MrU3WLTpdvCeS0EbDPUg cQqyOrS7h7I0On0WHUg0 BJ84YV29wZXgh8J8 vRY9D5KqCZLbxqsjyvtv sJQ7HZDwESDikH76Um7a sKhwUd5eAAWtIJX3PGAq uQBnX1MieA8yDtMp YZCcVQZlA9XwqAJbDExq I312WFboEdZ6NPSsavPe B2QiURUzfAgdKbF6c7U8 Yk7WRJUcVV22DJV6 uEW8FF11CG02U0AcNuyz dGFibGU+PHRhYmxlIHdp ZHRoPScxMDAlJyBzdHls VL6aMu6xYPAeQCTh eVstbMNjEnOoh4zkXYGx XNlvRU7ahDtkI6UveNV0 CGDts7x3Qk06C81uD2Eo dXA+MTKhpNL0fHK4 pB8oGoOdVfK6PVqeQ566 CkHxyJNyOjiwk4kot9fw sLc2IcD7ZHRnpiTtwTlw AFS1q3XvLr76P24j IHdpZHRoPSIxNSUiIHZh tOvjfq3pqF6vEx4+PGNv xEM4yXN8vY4tWnHlEoY3 YIxoY064KoLwlSBp Eqoju2uki4xdsBn0TfQx GQQqseXoqMfuLVT1u5Kd Tw84I6UlrYgqe8RkFwo7 td21oTTvr8V2uYP8 W9JfWKZrukhcaHTsmUrl NS6oHEWkintiZNBwdJ5h IMIsF8i0LePpOmS4KOza Y9RiboV4RFWiqCLr KFkpHEH0P47mc1A9HPIc DCTiGSF7lKH4qS9heAte bjogbGVmdDsgdmVydGlj RNwqORwdZ844SSWc bSjmJMYokQ7hHUFwjBMz eZeqSX7yXYAvclleHiBN HKcUCQjcR5WMFGuIIynZ CI84PO92eGHww2N6 gWW4N7XkPTCedhbsiubq jJQ6ZSYxVYGelS19kPJp VQkdCr3qi7Q1g660ATAz PVRaeY60Jp8dgJgw GNMcdRRNoV1ujcsdh5bq qtypQrSbMKHpEXn9TMh0 IUDtcRcdJiZlDVP1FwY9 JUP3xZAdeP2ggUws wklnmS8zIre+MDIvMTkv MjAwMzwvdGQ+PHRkIHN0 tUqvXWswIMGqdP4sREPx X0v2XpVdTvO1ZBxp E9MlDOWnsifsQx65vT4h NiGtRyH1VJyvM4VhuwF7 EHAffJLvNEbiHKH6C19b z0N3WUJkZZWuYPD7 cAO1fM0lnWjuqbugtEBf dDsgdmVydGljYWwtYWxp U968ETOreXtdJyH7KEra UBOiCJ03FH57zDCc b3E2yNP0N1XgEKDsbuue mlwbpII3ZKYwQPWhcQ06 hWWsRAgvOx3wj6U5r350 CTNgZNBqwV44Jn3m qHebYWYxtVELjY6jihad d6dswopeWnEuWUSvSIl3 FUh6WUPxrJscDoLcVRO0 EmZ1VOK9pIIulY4a rSdtgxknrL3cHcm+RmVt SSmjQI33GP55eXQjq6Q1 fUQ1C2WiUAGcwfrzpihf qWD6WERnRNGbmL01 bXDlFKjjDg1cu0R2m652 ZSUoRDIizJ08Gs0yyFix VHJyrMZNhU5xweoou8nl cjogIzAwMDAwMDt0 AKo7AAGzhAgcLwFuEJL7 QtI8DPS7gFOimG3guTic atcfcY2kAqt+GS3ioray ysG3WS61FQ99L5Cr PjwvdGFibGU+PHRhYmxl IHdpZHRoPScxMDAlJyBz yUqvDO8lVx9nGAXkGAOa aJabwIVoZhTez5ht GZYnAYveCA5klBrtC3Es fNH0FYOwq5y2Tw77G05t U9CmwSE+IPLomXR5vFK3 sD6eUsXtHyO0GLis O594RtPojIIxBcrdl3ki t9zhcLn7PxBaCTNthuGe lMcjOPF2o3AwIk62Z58r IHdpZHRoPSIyMCUi TRVqbWbzop8fkT9fEh9+ WAFniYA7oGT4tO5mTvUz GyY7JThkW675VhOazMDq GohzA59xC6VauFE+ NLIfGtu6OKTgdZlkZL2c dEUvDTbfVb5wFUP8MyPz VoMgLWquY5WyVILhpqyq okkapXZ4NVGwPJDe vQ28Nb8tqVqtPm2yINJi PFO3XEJvaUVdU5ZanP7n SyMkCICuMIUeD9RstUWl TFupN014QIorByF9 WJHshgAkX5IgSHTlkEsr WbE9w3Y4Wy7KiEsdsIMz MH8uMzLnASm2Y6WfZre5 DANyuScgCY8nrFCe ETnjFp6hzHqenDbgCY8l IIVaklcki748XiCkj6nd OUSrlVYrRCusQDU9W00t d6A2FDEmDHYdKWM2 tYE2uD3kvGzantywnQUc dDsgdmVydGljYWwtYWxp B185QNAlwBdjRhVXXxc9 V4ApEma3YJScpXta FR3zsQZjPWsxYx1xwUrn wMhwPF0xGXKylihgl054 CaOzf1tsUCEkbLVfCEmo GFW9W98as6W0LLGf TQXwUFK4tTR1vD3aqNdl bjogbGVmdDsgdmVydGlj QLfzUAtkP005BIVobAnr Kg3HXgu4R1OzAar5 UVMlsNtwWJ5hfOBcWYsk Nk7ftAudxFtmDA0nZHZx fudqn983SoJym2cqFFHq pIIzIEbmMSM2P37u o9B4AVFjEGTaBSO7dIV0 eO0hmGihxadshGCtrGeh grPbnXsvPOyeZGycG589 IHRvcDsnPlBheWVy OjwvdGQ+YZ03pr23K5Pb OntcQqy2HCUlKCK9dRY6 sN5vUNHxHPlzc8Q5pRF3 U6YiejIgle9mn7lk YXBz (more content not included)... Normal [facility] Consent for Treatmenton Consent for Treatment [id number] 20 [id number] #[id number] Normal [facility] ED Clinical Summaryon 2021 ED Clinical Summary [place] [id number] ED Clinical Summary Person Information Name: MARIBEL VELEZ/[facility] Age: 21 Years : 2000 Sex: Female Language: Mongolian PCP: JOE PEREZ MD Marital Status: Single Visit Id: [...] 10/19/2021 17:27:21 10/19/2021 17:27:21 10/19/2021 17:27:21 ADDRESS: [address] [id number] PHYS DOC NOTES: MEDICAL INFORMATION: Prescriptions Given: Medications to Continue with No Changes Other Medications ethinyl estradiol-norgestima te (Sprintec oral tablet) Ib By Mouth every day. ibuprofen (ibuprofen 600 mg Tab) 1 Tablets By Mouth every 6 hours as needed as needed for pain. PATIENT EDUCATION INFORMATION: Instructions: Viral Respiratory Infection, Jfjg-Ck-Vxub Follow up: With: Address: When: Michelle Mata In 3 days 10/22/2021 DIAGNOSIS: 1:Viral respiratory illness; Other viral agents as the cause of diseases classified elsewhere Normal [facility] ED Patient Education Noteon 10-19-2021 [...] home: Managing pain and congestion ? 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 ? Avoid contact with people who are [...] 05/13/2009 Document Revised: 06/08/2019 Document Reviewed: 07/11/2018 [employer] Patient Education ? 2019 [employer]. Normal [facility] ED Patient Summaryon 022 ED Patient Summary [place] [id number] Patient Discharge Instructions Person Information Name: MARIBEL VELEZ Age: 21 Years Arrival Date: 10/19/2021 17:05:16 Discharge Diagnosis: 1:Viral respiratory illness; Other viral agents as the cause of diseases classified elsewhere Primary Care Physician: JOE PEREZ MD Provider Information Primary Provider: Advanced Commercial Teller:None The exam and treatment you received in the Emergency Department were for an urgent problem and are not intended as complete care. It is important that you follow up with a doctor, nurse practitioner, or physician?s cardiovascular physician assistant for ongoing care. If your symptoms [...] provider. Patient Education Materials: Viral Respiratory Infection, Wpii-Rl-Wlgk A MESSAGE TO ALL PATIENTS REGARDING OPIOIDS PRESCRIPTION OPIOIDS: WHAT YOU NEED TO KNOW Prescription opioids can be used to help relieve rrszfpwf-yq-deetaf pain and are often prescribed following a [...] be struggling with addiction, tell your health senior care specialist and ask for guidance or call [facility]?S National Helpline at 6-744-695-IAFG. m Source: [facility] (more content not included)... Normal [facility] Influenza A&B Agon Influenzae A Ag Negative Normal Negative [facility] Comment on above: Performed By: #### 1 [id number] ####[facility] [address] [place] [address] Influenzae B Ag Negative Normal Negative [facility] Comment on above: Result Comment: Test sensitivity and specificity vary for age group, specimen type, antigen types, and prevalence of disease. Test results must be evaluated in conjunction with other clinical data available to the physician. Individuals who received nasally administered Influenza A vaccine may have positive test results up to 3 days after vaccination. Performed By: #### 1 [id number] ####[facility] [address] [place] [address] MICRO OTHER TESTSOrdered By: Mya Reza on 10-19-2021 Influenzae A Ag Negative (10/19/21 5:05 PM) Normal Negative [facility] Influenzae B Ag Negative (10/19/21 5:05 PM) Normal Negative [facility] Rapid COV Int NEG [place]l [place] (10/19/21 5:05 PM) Normal [facility] Rapid COV Int POS Ctl [place] (10/19/21 5:05 PM) Normal [facility] SARS-CoV+SARS-CoV-2 (COVID-19) Ag IA.rapid Ql (Resp) Not Detected (10/19/21 5:05 PM) Normal Not Detected [facility] Rapid COVID Antigen (FT)on 10-19-2021 Rapid COV Int NEG Ctl Pass Normal [facility] Comment on above: Performed By: #### 2 [id number] ####[facility] [address] [place] [address] Rapid COV Int POS Ctl Pass Normal [facility] Comment on above: Performed By: #### 2 [id number] ####[facility] [address] [place] [address] SARS-CoV+SARS-CoV-2 (COVID-19) Ag IA.rapid Ql (Resp) Not detected Normal Not Detected [facility] Comment on above: Result Comment: The [employer] System for Rapid Detection of SARS-CoV-2 is [...] or revoked sooner. Performed By: #### 2 [id number] ####[place] [address] ADMITTED TO INTENSIVE CARE UNIT FOR CONDITION OF INTEREST:FIND:PT: NO Normal [facility] Comment on above: Performed By: #### 2 [id number] ####[place] [address] EMPLOYED IN A HEALTHCARE SETTING:FIND:PT: NO Normal [facility] Comment on above: Performed By: #### 2 [id number] ####[place] [address] FIRST TEST FOR CONDITION OF INTEREST:FIND:PT: Unknown Normal [facility] Comment on above: Performed By: #### 2 [id number] ####[place] [address] HAS SYMPTOMS RELATED TO CONDITION OF INTEREST:FIND:PT: YES Normal [facility] Comment on above: Performed By: #### 2 [id number] ####[place] [address] HOSPITALIZED FOR CONDITION OF INTEREST:FIND:PT: NO Normal [facility] Comment on above: Performed By: #### 2 [id number] ####[place] [address] STATUS:FIND:PT: NO Normal [facility] Comment on above: Performed By: #### 2 [id number] ####[place] [address] RESIDES IN A CONGREGATE CARE SETTING:FIND:PT: NO Normal [facility] Comment on above: Performed By: #### 2 [id number] ####[place] [address] [place] [address] US SINGLE QUAD RT UPPERon US SINGLE [...] CAMARENA Date: 2021-09-19 11:51 Normal [facility] 08-05-2021 [facility] [place] [address] Nuclear Medicine Report Signed Patient: Maribel Velez MR#: [id number] : 2000 Acct:[id number] Age/Sex: 21 / F ADM Date: 08/05/21 Loc: [place] Room: Type: [facility] Attending Dr: Amy Tang DO Ordering Provider: Amy Tang Jr, DO Date of Service: 08/05/21 [place] Meckel's: Blood in stool;Abdominal pain Copies to: [...] Naseem Cevallos M.D.08/05/2021 4:16 PM Dictation Location: [facility]--13 Transcribed By: [facility] 08/05/211615 Dictated By: Naseem Cevallos DO 08/05/211610 Signed By: 08/05/211615 Normal [facility] HCG,Urineon 07-29-2021 Beta HCG ( test) Ql (U) Negative Normal [facility] Comment on above: Result Comment: PERF ORMED BY: [place] [address] PATHOLOGIST SIDING MECHANIC EDDIE CORTÉS M.D. Performed By: #### U HCG #### [address] 07-29-2021 L Specimen: [id number] Received: 07/29/21 Status: AMMY Lucio Num: [id number] Spec Type: Surgical Subm Dr: Amy Tang Jr, DO Tissues: A Colon Biopsy (RANDOM BX) Procedures: HE Stain/2, Gross/Micro L4 Patient Age/Sex Location Account Attending Physician Maribel Velez 20/F [id number] Amy Tang Jr, DO SPEC NUM: [id number] RECD: 07/29/21 STATUS: AMMY VALDES NUM: [id number] DIMITRI: 07/29/[address] [facility] [address]: Amy Tang Jr, DO ENTERED: 07/29/[address]: ELENA TYPE: Surgical DEPT: S ORDERED: [...] microscopic findings support the above pathologic diagnosis. [id number] Specimen: [id number] Received: 07/29/21 Status: AMMY Valdes Num: [id number] Spec Type: Surgical Subm Dr: Amy Tang Jr, DO Tissues: A Colon Biopsy (RANDOM BX) Procedures: HE Stain/2, Gross/Micro L4 Patient: Maribel Velez [id number] (Continued) Signed (signature on file) Eddie Cortés MD 07/30/21 5185 [facility] COVID-19 Antigenon 2 COVID-19 Antigen [...] its performance Lucas Disclaimer characteristic determined by Environmental Operations and Lucas Disclaimer validated at [facility]. This Lucas Disclaimer test has not [...] is terminated or revoked sooner. PERFORMED BY: [place] [id number] PATHOLOGIST SIDING MECHANIC EDDIE CORTÉS M.D. Normal [facility] Comment on above: Performed By: #### C OVID-19 LUCAS, SOFIANEG #### [address] Lucas Ag Negativeon 07-25-19 22 Lucas Ag Negative Negative Normal Negative [facility] Comment on above: Result Comment: This is a duplicate Lucas SARS Antigen (REINIER) result to be used for statistical tracking purpose only. PERFORMED BY: [place] [address] PATHOLOGIST SIDING MECHANIC EDDIE CORTÉS M.D. Performed By: #### C OVID-19 LUCAS, SOFIANEG #### [address] COVID-19 Antigenon 2 COVID-19 Antigen Healthcare [...] its performance Lucas Disclaimer characteristic determined by Environmental Operations and Lucas Disclaimer validated at [facility]. This Lucas Disclaimer test has not [...] Emergency Use Authorization for Coronavirus Lucas Disclaimer iseas2019 during the Public Health Emergency) Lucas Disclaimer [...] is terminated or revoked sooner. PERFORMED BY: [place] [address] PATHOLOGIST SIDING MECHANIC EDDIE CORTÉS M.D. Normal [facility] Comment on above: Performed By: #### S OFJOSE ANGELEG, COVID-19 LUCAS #### [address] Lucas Ag Negativeon 07-16-19 22 Lucas Ag Negative Negative Normal Negative [facility] Comment on above: Result Comment: This is a duplicate Lucas SARS Antigen (REINIER) result to be used for statistical tracking purpose only. PERFORMED BY: [place] [address] PATHOLOGIST SIDING MECHANIC EDDIE CORTÉS M.D. Performed By: #### C UU #### [address] #### VAGINITIS+ #### [facility] , Patient [...] meters squared number. To calculate BMI with Mongolian measurements: 1. Measure weight in lb. 2. [...] people from 2?20 years of age. Health primary care coordinator use the charts to identify underweight [...] 08/20/2004 Document Revised: 05/13/2018 Document Reviewed: 11/11/2016 [employer] Patient Education ? 2019 [employer]. [facility] Urinalysis - AUTOMATEDon Appearance (U) cloudy [employer] Other Bilirubin Ql (U) Negative [employer] Other Color (U) yellow [email or web address] Other Glucose Ql (U) Negative [employer] Other Hemoglobin Ql (U) Negative [employer] Other Ketones Ql (U) Negative [employer] Other Leukocyte esterase Test strip Ql (U) small [email or web address] Other Nitrite Ql (U) Negative [employer] Other pH (U) 8.5 [pH] [email or web address] Other Protein Ql (U) Negative [employer] Other Specific gravity (U) [Rel density] 1.025 [email or web address] Other Urobilinogen (U) [Mass/Vol] 1.0 mg/dL [email or web address] Other Urinalysis - AUTOMATED [email or web address] Other Urine Cultureon 04-08-2021 Bacteria identified Cx Nom (U) Reason for Exam Vaginal discharge Urine 75,000 colonies/ml mixed bacterial skin contaminants 2 Days PERFORMED BY: [facility] [place] [address] PATHOLOGIST SIDING MECHANIC EDDIE CORTÉS M.D. Normal [facility] Comment on above: Performed By: #### C UU #### [place] [address] [place] #### VAGINITIS+ #### [facility] , Vaginitis Plus (VG+)on 04-08 Atopobium Vaginae Low - 0 Normal . [facility] Comment on above: Order Comment: Reaso n for Exam High risk bisexual behavior Performed By: #### C UU #### [address] #### VAGINITIS+ #### [facility] , BVAB2 Low - 0 Normal . [facility] Comment on above: Order Comment: Reaso n for Exam High risk bisexual behavior Performed By: #### C UU #### [place] [address] [place] #### VAGINITIS+ #### [facility] , Allan Albicans, YUNIOR Positive Critically abnormal Negative [facility] Comment on above: Order Comment: Reaso n for Exam High risk bisexual behavior Result Comment: This test was developed and its performance characteristics determined by [facility]. It has not been cleared or approved by the Food and Drug Administration. Performed By: #### C UU #### [place] [address] [place] #### VAGINITIS+ #### [facility] , Allan Glabrata, YUNIOR Negative Normal Negative [facility] Comment on above: Order Comment: Reaso n for Exam High risk bisexual behavior Result Comment: This test was developed and its performance characteristics determined by [facility]. It has not been cleared or approved by the Food and Drug Administration. PERFORMED BY: [place] [address] PATHOLOGIST SIDING MECHANIC EDDIE CORTÉS M.D. Performed By: #### C UU #### [place] [address] [place] #### VAGINITIS+ #### [facility] , Chlamydia Trachomotis, YUNIOR Negative Normal Negative [facility] Comment on above: Order Comment: Reaso n for Exam High risk bisexual behavior Performed By: #### C UU #### [facility] [address] [place] [address] [place] #### VAGINITIS+ #### [facility] , Megasphaera Low - 0 Normal . [facility] Comment on above: Order Comment: [...] developed and its performance characteristics determined by [facility]. It has not been cleared or approved by the Food and Drug Administration. Performed By: #### C UU #### [facility] [address] [place] [address] [place] #### VAGINITIS+ #### [facility] , Neisseria Gonorrhoeae, YUNIOR Negative Normal Negative [facility] Comment on above: Order Comment: Reaso n for Exam High risk bisexual behavior Result Comment: Perf ormed at: = - [facility] [id number] Ladle Liner Helper: Kim Anderson MD, Phone: [phone] Performed By: #### C UU #### [facility] [address] [place] [address] [place] #### VAGINITIS+ #### [facility] , Tric Vag YUNIOR Negative Normal Negative [facility] Comment on above: Order Comment: Reaso n for Exam High risk bisexual behavior Performed By: #### C UU #### [facility] [address] [place] [address] [place] #### VAGINITIS+ #### [facility] , XR [...] Josué Erickson MD 11/15/19 Final result Normal [facility] Normal right femur x-rays. [place], [place] RIGHT FEMUR X-RAYS, 11/15/2019. HISTORY: Right hip and leg pain. COMPARISON: None. FINDINGS: AP and lateral views of the right femur were obtained. Bone mineralization is normal. Alignment is normal. There is no fracture. No dislocation. No degenerative changes. [place], [place] Sam, [facility] Incoming Radiant Results From [employer] - 11/15/2019 6:01 PM EDT RIGHT FEMUR X-RAYS, 11/15/2019. HISTORY: Right hip and leg pain. COMPARISON: None. FINDINGS: AP and lateral views of the right femur were obtained. Bone mineralization is normal. Alignment is normal. There is no fracture. No dislocation. No degenerative changes. IMPRESSION: Normal right femur x-rays. [place], [place] ED Provider Noteon 08-10- 9 Protein mass conc [facility] ED eMERGENCY dEPARTMENT eNCOUnter Pt Name: Maribel [...] the Claritin, Tessalon, increase fluids, rest. Take [id number] Tylenol or ibuprofen as if her pain. [...] Discharge 08/10/2018 10:34:25 AM PATIENT REFERRED TO: [place] [address] [address] [facility] [id number] Call As needed DISCHARGE MEDICATIONS: New [...] Emergency Medicine Provider KARMEN Urrutia CNP 08/10/[address] [place] [address] Vital Signs Date Time Vital Sign Value Performing Clinician Facility 05-24-2024 12:00-0500 Body weight 75.66 kg Eldon Kaykay DO Work Phone: [facility] 05-24-2024 12:00-0500 Diastolic blood pressure 76 mm[Hg] Eldon Kaykay DO Work Phone: [facility] 05-24-2024 12:00-0500 Systolic blood pressure 108 mm[Hg] Eldon Kaykay DO Work Phone: [facility] 05-08-2024 11:03-0500 Body weight 73.03 kg Marycarmen MELÉNDEZ Work Phone: [facility] 05-08-2024 11:03-0500 Diastolic blood pressure 72 mm[Hg] Marycarmen MELÉNDEZ Work Phone: [facility] 05-08-2024 11:03-0500 Systolic blood pressure 110 mm[Hg] Marycarmen MELÉNDEZ Work Phone: [facility] 04-17-2024 10:11-0500 Body weight 71.22 kg Eldon Kaykay DO Work Phone: [facility] 04-17-2024 10:11-0500 Diastolic blood pressure 62 mm[Hg] Eldon Kaykay DO Work Phone: [facility] 04-17-2024 10:11-0500 Systolic blood pressure 110 mm[Hg] Eldon Kaykay DO Work Phone: [facility] 03-16-2024 12:06-0400 Body weight 68.04 kg Marycarmen MELÉNDEZ Work Phone: [facility] 03-16-2024 12:06-0400 Diastolic blood pressure 66 mm[Hg] Marycarmen MELÉNDEZ Work Phone: [facility] 03-16-2024 12:06-0400 Systolic blood pressure 108 mm[Hg] Marycarmen MELÉNDEZ Work Phone: [facility] 03-08-2024 18:24-0400 Body height 165.1 cm [facility] 03-08-2024 18:24-0400 Body mass index (BMI) [Ratio] 24.7 kg/m2 [facility] 03-08-2024 18:24-0400 Body temperature 99.1 [degF] [facility] 03-08-2024 18:24-0400 Body weight 67.58 kg [facility] 03-08-2024 18:24-0400 Diastolic blood pressure 88 mm[Hg] [facility] 03-08-2024 18:24-0400 Heart rate 84 /min [facility] 03-08-2024 18:24-0400 Respiratory rate 18 /min [facility] 03-08-2024 18:24-0400 SaO2% (BldA) [Mass fraction] 96 % [facility] 03-08-2024 18:24-0400 Systolic blood pressure 130 mm[Hg] [facility] 02-17-2024 11:13-0400 Body weight 66.68 kg Marycarmen MELÉNDEZ Work Phone: [facility] 02-17-2024 11:13-0400 Diastolic blood pressure 66 mm[Hg] Marycarmen MELÉNDEZ Work Phone: [facility] 02-17-2024 11:13-0400 Systolic blood pressure 108 mm[Hg] Marycarmen MELÉNDEZ Work Phone: [facility] 02-13-2022 07:25-0400 Diastolic blood pressure 98 mm[Hg] Kevin Santoro [facility] 02-13-2022 07:25-0400 Systolic blood pressure 153 mm[Hg] Kevin Santoro [facility] 02-13-2022 06:20-0400 Body temperature 98.24 [degF] Kevin Santoro [facility] 02-13-2022 06:20-0400 Diastolic blood pressure 74 mm[Hg] Kevin Santoro [facility] 02-13-2022 06:20-0400 Heart rate 75 /min Kevin Santoro [facility] 02-13-2022 06:20-0400 Respiratory rate 20 /min Kevin Santoro [facility] 02-13-2022 06:20-0400 SaO2% (BldA) [Mass fraction] 98 % Kevin Santoro [facility] 02-13-2022 06:20-0400 Systolic blood pressure 119 mm[Hg] Kevin Santoro [facility] 10-19-2021 17:09-0400 Body temperature 98.96 [degF] Miko Kaur [facility] 10-19-2021 17:09-0400 Diastolic blood pressure 84 mm[Hg] Miko Vincent [facility] 10-19-2021 17:09-0400 Heart rate 89 /min Miko Vincent [facility] 10-19-2021 17:09-0400 Respiratory rate 17 /min Miko Vincent [facility] 10-19-2021 17:09-0400 SaO2% (BldA) [Mass fraction] 100 % Miko Vincent [facility] 10-19-2021 17:09-0400 Systolic blood pressure 138 mm[Hg] Miko Vincent [facility] 09-17-2021 15:00-0400 Body weight 61.69 kg Amy Tang Other [email or web address] Other 06-25-2021 15:15-0500 Body weight 62.6 kg Amy Tang Other [email or web address] Other 04-08-2021 14:50-0400 Body height 163.83 cm Maribel Randall Other [email or web address] Other 04-08-2021 14:50-0400 Body mass index (BMI) [Ratio] 24.84 kg/m2 Maribel Tonia Other [email or web address] Other 04-08-2021 14:50-0400 Body temperature 98.2 [degF] Maribel Randall Other [email or web address] Other 04-08-2021 14:50-0400 Body weight 66.68 kg Maribel Tonia Other [email or web address] Other 04-08-2021 14:50-0400 Diastolic blood pressure 80 mm[Hg] Maribel Randall Other [email or web address] Other 04-08-2021 14:50-0400 Respiratory rate 18 /min Maribel Randall Other [email or web address] Other 04-08-2021 14:50-0400 SaO2% (BldA) [Mass fraction] 100 % Maribel Randall Other [email or web address] Other 04-08-2021 14:50-0400 Systolic blood pressure 131 mm[Hg] Maribel Randall Other [email or web address] Other Encounters Encounter Date Encounter Type Care Provider Facility Start: 05-24-2024 End: 05-24-2024 Bamboo flowsheet Eldon Kaykay DO Work Phone: [facility] Start: 05-24-2024 End: 05-24-2024 Bamboo flowsheet Eldon Kaykay DO Work Phone: [facility] Start: 05-24-2024 End: 05-24-2024 Office outpatient visit 15 minutes Eldon Kaykay DO Work Phone: [facility] Comment on above: Third trimester preg katie; 30 weeks gestation of ; Anemia during in third trimester; Excessive growth affecting management of , antepartum, single or unspecified fetus Start: 05-24-2024 End: 05-24-2024 ambulatory ELDON KAYKAY Not Available Start: 05-09-2024 End: 05-09-2024 Clinisync Result Encounter Eldon Kaykay DO Work Phone: [facility] Unsolicited Start: 05-09-2024 End: 05-09-2024 Clinisync Result Encounter Eldon Kaykay DO Work Phone: [facility] Unsolicited Start: 05-08-2024 End: 05-08-2024 Bamboo flowsheet Marycarmen MELÉNDEZ Work Phone: [facility] Start: 05-08-2024 End: 05-08-2024 Bamboo flowsheet Marycarmen MELÉNDEZ Work Phone: [facility] Start: 05-08-2024 End: 05-08-2024 ambulatory MARYCARMEN ROWAN Not Available Start: 05-08-2024 End: 05-08-2024 Office outpatient visit [...] visit 15 minutes Marycarmen MELÉNDEZ Work Phone: [facility] Comment on above: 20 weeks gestation o f (Primary Dx); Second trimester ; Constipation, unspecified constipation type Start: 03-08-2024 End: 03-08-2024 ambulatory [facility] Work Phone: Start: 03-08-2024 End: 03-08-2024 Patient encounter procedure On License Of [facility] Work Phone: Start: 02-17-2024 End: 02-17-2024 Bamboo flowsheet Marycarmen MELÉNDEZ Work Phone: [facility] Start: 02-17-2024 End: 02-19-2024 Bamboo flowsheet Marycarmen MELÉNDEZ Work Phone: [facility] Start: 02-17-2024 End: 02-19-2024 Clinisync Result Encounter Eldon Kaykay DO Work Phone: [facility] Unsolicited Start: 02-17-2024 End: 02-19-2024 External Result Encounter Marycarmen MELÉNDEZ Work Phone: [facility] Unsolicited Start: 02-17-2024 End: 02-17-2024 ambulatory MARYCARMEN ROWAN Not Available Start: 02-17-2024 End: 02-17-2024 Office outpatient visit 15 minutes Marycarmen MELÉNDEZ Work Phone: [facility] Comment on above: Screening, , for anatomic survey; Well woman exam with routine gynecological exam; 17 weeks gestation of ; Screen for STD (sexually transmitted disease); Vaginal discharge; Nonintractable headache, unspecified chronicity pattern, unspecified headache type Start: 02-17-2024 End: 02-17-2024 Patient encounter procedure Marycarmen MELÉNDEZ Work Phone: [facility] Start: 01-20-2024 End: 01-20-2024 ambulatory ELDON MCCRACKEN Not Available Start: 08-12-2023 End: 08-12-2023 ambulatory AMBREEN DAN Not Available Start: 07-10-2022 End: 07-10-[address] NASEEM VEE Facility:[facility] Start: 06-17-2022 End: 06-17-[address] JAYSON FIORE Facility:[facility] Start: 03-02-2022 End: 03-02-2022 ambulatory Lucia Thorne Facility:[facility] Start: 03-02-2022 End: 03-02-2022 Departed Referred MD Lucia Thorne Work Phone: [facility] Start: 02-13-2022 End: 02-13-2022 Emergency department patient visit Kevin Santoro [facility] Start: 02-03-2022 End: 02-03-2022 Patient encounter procedure CAITIE MARSHALL [facility] Start: 01-15-2022 End: 01-16-[address] JOE PEREZ Facility:[facility] Start: 10-19-2021 End: 10-19-2021 Emergency department patient visit Miko Kaur [facility] Start: 09-19-2021 End: 09-20-[address] JOE PEREZ Facility:[facility] Start: 09-17-2021 End: 09-17-2021 ambulatory Amy Tang Other [email or web address] Other Start: 09-17-2021 Office outpatient vi sit 15 minutes Amy Tang [facility] Start: 08-05-2021 End: 08-05-2021 ambulatory Amy Alvarengakes Facility:[facility] Start: 08-01-2021 End: 08-01-2021 ambulatory Amy Alvarengakes Other [email or web address] Other Start: 08-01-2021 Telephone encounter Amy Alvarengakes [facility] Start: 07-29-2021 Telephone encounter Amy Tang [facility] Start: 07-29-2021 End: 07-29-2021 ambulatory Amy Tang [facility] Other Start: 07-25-2021 End: 07-25-2021 ambulatory Amy L Lylekes Facility:[facility] Start: 07-16-2021 End: 07-16-2021 ambulatory Amy L Hykes Facility:[facility] Start: 06-25-2021 End: 06-25-2021 ambulatory Amy Hykes Other [email or web address] Other Start: 06-25-2021 Office outpatient vi sit 25 minutes Amy Hykes [facility] Start: 04-08-2021 End: 04-08-2021 ambulatory Maribel Randall Facility:[facility] Start: 04-08-2021 Office outpatient vi sit 15 minutes Maribel Randall [facility] Start: 11-15-2019 End: 11-18-2019 Patient encounter procedure MICHAEL SMALLS [facility] Start: 11-15-2019 End: 11-17-2019 Subsequent hospital visit by physician Pauline Munoz Rad 1 [facility] Comment on above: Injury of right knee , initial encounter Start: 11-15-2019 End: 11-18-2019 Patient encounter procedure MICHAEL SMALLS [facility] Start: 11-15-2019 End: 11-17-2019 Subsequent hospital visit by physician Joe Perez [facility] Start: 08-10-2018 Emergency department patient visit UNKNOWN PROVIDER [facility] Procedures Date Procedure Procedure Detail Performing Clinician Start: 05-24-2024 Urnls dip stick/tabl et rgnt non-auto w/o micrscp Eldon Kaykay DO Work Phone: Start: 05-09-2024 Antibody screen Eldon F azio DO Work Phone: Start: 05-09-2024 ALL TYPE AND SCREEN Cor ey Kaykay DO Work Phone: Start: 05-08-2024 Urnls dip stick/tabl et rgnt non-auto w/o micrscp Marycarmen MELÉNDEZ Work Phone: Start: 04-17-2024 Urnls dip stick/tabl et rgnt non-auto w/o micrscp Eldon Kaykay DO Work Phone: Start: 03-16-2024 Urnls dip stick/tabl et rgnt non-auto w/o micrscp Marycarmen MELÉNDEZ Work Phone: Start: 03-08-2024 Quick Strep (POC) Start: 02-17-2024 URETHRITIS/DISCHARGE PLUS VAGINITIS (HTRX) Marycarmen MELÉNDEZ Work Phone: Start: 02-17-2024 AFP, SERUM, OPEN SPI NA BIFIDA Eldon Kaykya DO Work Phone: Start: 02-17-2024 Urnls dip stick/tabl et rgnt non-auto w/o micrscp Marycarmen MELÉNDEZ Work Phone: Start: 01-24-2020 Arthroscopy of knee Miko Kaur Start: 11-15-2019 Radiologic examinati on femur minimum 2 views MICHAEL SMALLS Start: 11-15-2019 Radiologic examinati on femur minimum 2 views Michael Kaur [facility] Other Phone: Plan of Treatment Date Care Activity Detail Author Start: 06-08-2024 End: 06-08-2024 Patient encounter procedure 06/08/2024 10:10 AM EST Routine [facility] [address] [place] [place] [id number] Eldon Mccracken DO [address] [place] [address] [facility] Start: 06-05-2024 End: 06-05-2024 Professional / ancillary services management 06/05/2024 10:30 AM EST Ancillary Procedure [facility] [address] [place] [phone] [facility] Start: 05-24-2024 End: 05-24-2025 US for US OB SCAN FOR GROWTH Imaging Routine Excessive growth affecting management of , antepartum, single or unspecified fetus Expected: 05/24/2024 (Approximate), Expires: 05/24/2025 [facility] Work Phone: Comment on above: Expected: 05/24/2024 (Approximate), Expires: 05/24/2025 Start: 05-24-2024 End: 05-24-2024 Patient encounter procedure [facility] Comment on above: Arrived Start: 05-08-2024 End: 05-08-2024 Patient encounter procedure 05/08/2024 10:30 AM EST Routine [facility] [address] [place] [phone] Marycarmen Rowan PA [address] [place] [address] [facility] Start: 04-17-2024 End: 04-17-2025 [...] mellitus screening Expected: 04/17/2024 (Approximate), Expires: 04/17/2025 [facility] Comment on above: Expected: 04/17/2024 (Approximate), Expires: 04/17/2025 Start: 04-17-2024 End: 04-17-2024 Patient encounter procedure 04/17/2024 9:50 AM EST Routine [facility] [address] [place] [phone] Eldon Mccracken DO [address] [place], [place] [id number] [facility] Start: 03-16-2024 End: 03-16-2024 Patient encounter procedure 03/16/2024 11:30 AM EDT Routine [facility] [address] [place] [phone] Marycarmen Rowan PA [address] [place] [address] [facility] Start: 03-16-2024 End: 03-16-2024 Professional / ancillary services management 03/16/2024 10:30 AM EDT Ancillary Procedure [facility] [address] [place] [id number] [facility] [place] [facility] Start: 02-17-2024 End: 02-16-2025 Alpha fetoprotein, maternal Alpha fetoprotein, maternal Lab Routine 17 weeks gestation of Expected: 02/17/2024 (Approximate), Expires: 02/16/2025 [facility] Comment on above: Expected: 02/17/2024 (Approximate), Expires: 02/16/2025 Start: 02-17-2024 End: 02-16-2025 US for US OB ANATOMY SINGLE W US OB CERVICAL LENGTH Imaging Routine Screening, , for anatomic survey Expected: 02/17/2024 (Approximate), Expires: 02/16/2025 [facility] Comment on above: Expected: 02/17/2024 (Approximate), Expires: 02/16/2025 Start: 02-13-2024 Influenza vaccination Influenza Vacc ine (#1) [facility] Start: 02-13-2020 Influenza vaccination Flu vacc ine (Season Ended) [place], [place] Start: 2018 Meningococcal (ACWY) vaccine (1 - 2-dose series) Meningococcal (ACWY) vaccine (1 - 2-dose series) [place] Start: 2018 Screening for Chlamy nkechi trachomatis Chlamydia screen [place] Start: 2017 HIV screening HIV screen [place], [place] Start: 2013 HPV vaccine (1 - 2-d ose series) HPV vaccine (1 - 2-dose series) [place] Start: 2009 DTaP/Tdap/Td vaccine (1 - Tdap) DTaP/Tdap/Td vaccine (1 - Tdap) [place] Start: 2003 Hepatitis A vaccine (1 of 2 - 2-dose series) Hepatitis A vaccine (1 of 2 - 2-dose series) [place] Start: 2003 Measles,Mumps,Rubell a (MMR) vaccine (1 of 2 - Standard series) Measles,Mumps,Rubella (MMR) vaccine (1 of 2 - Standard series) [place] Start: 2003 Varicella vaccine (1 of 2 - 2-dose childhood series) Varicella vaccine (1 of 2 - 2-dose childhood series) [place] Start: 2002 Polio vaccine (1 of 3 - 4-dose series) Polio vaccine (1 of 3 - 4-dose series) [place] Start: 2002 Hepatitis B vaccine (1 of 3 - 3-dose primary series) [place] Atopobium vaginae DN A [Presence] in Vaginal fluid by YUNIOR with probe detection [facility] Work Phone: Bacteria identified in Urine by Culture [facility] Bacterial vaginosis associated bacterium 2 DNA [Presence] in Vaginal fluid by YUNIOR with probe detection [facility] Work Phone: CHLAMYDIA TRACHOMATI S (GENITO/STI) CHLAMYDIA TRACHOMATIS (GENITO/STI) Lab Routine 17 weeks gestation of Screen for STD (sexually transmitted disease) Vaginal discharge Ordered: 02/17/2024 [facility] Comment on above: Ordered: 02/17/2024 Cytology Cervical or vaginal smear or scraping study Pap Smear Pathology and Cytology Routine Well woman exam with routine gynecological exam Ordered: 02/17/2024 [facility] [employer] Work Phone: Comment on above: Ordered: 02/17/2024 Megasphaera sp type 1 DNA [Presence] in Vaginal fluid by YUNIOR with probe detection [facility] Work Phone: Neisseria gonorrhoea e DNA [Presence] in Unspecified specimen by YUNIOR with probe detection Neisseria gonorrhea DNA probe, direct Lab Routine 17 weeks gestation of Screen for STD (sexually transmitted disease) Vaginal discharge Ordered: 02/17/2024 [facility] Comment on above: Ordered: 02/17/2024 SURESWAB(R) ADVANCED VAGINITIS PLUS, TMA SURESWAB(R) ADVANCED VAGINITIS PLUS, TMA Pathology and Cytology Routine 17 weeks gestation of Screen for STD (sexually transmitted disease) Vaginal discharge Ordered: 02/17/2024 [facility] Comment on above: Ordered: 02/17/2024 Payers Date Payer Category Payer Medicaid 2022 Unknown [id number] 2021 Self-pay [id number] 2018 Unknown [employer] xxxxxxxxxxx 2018-Present [phone] [address] [place] [address] xxxxxxxxxxx [id number] 2018 Unknown [id number] 2002 Unknown [id number] 2.16.840.1.129079.3.579.2. 593 2002 Unknown [id number] 2.16.840.1.445220.3.579.2. 593 2002 Unknown [id number] 2.16.840.1.171092.3.579.2. 593 2002 Unknown [id number] 2.16.840.1.232991.3.579.2. 593 2002 Unknown [id number] 2.16.840.1.615912.3.579.2. 1259 2002 Unknown [id number] 2.16.840.1.106004.3.579.2. 1259 2002 Unknown [id number] 2.16.840.1.847465.3.579.2. 1259 2002 Unknown [id number] 2.16.840.1.551263.3.579.2. 1259 2002 Unknown [id number] 2.16.840.1.541458.3.579.2. 1259 2002 Unknown [id number] 2.16.840.1.660910.3.579.2. 1259 1989 Unknown [id number] 2.16.840.1.547838.3.579.2. 174 1989 Unknown [id number] 2.16.840.1.108253.3.579.2. 174 1984 Unknown [id number] 2.16.840.1.096145.3.579.2. 668 1959 Medicaid [id number] Private Health Insurance [facility] [place] [id number] Unknown [id number] 2.16.840.1.547680.3.579.2. 531 Unknown [id number] 2.16.840.1.535705.3.579.2. 531 Unknown [id number] 2.16.840.1.809033.3.579.2. 531 Unknown [id number] 2.16.840.1.554220.3.579.2. 531 Unknown [id number] 2.16.840.1.905663.3.579.2. 531 Unknown [id number] 2.16.840.1.824894.3.579.2. 531 Social History Date Type Detail Facility Start: 08-10-2018 Tobacco smoking status NHIS Never smoker [place] Start: 08-10-2018 Alcohol intake Current non-dr art specialist of alcohol (finding) [place], [place] Start: 2002 Sex Assigned At Not on file [place] Sex Assigned At Female [email or web address] Other Tobacco smoking status No Smoking Status Entered [facility] Start: 2002 Sex Assigned At Female F [facility] Start: 08-20-2023 Tobacco smoking status IAIS Unknown if ever smoked [facility] Start: 11-10-2023 [facility] Functional Status Date Assessment Result Facility 02-13-2022 Functional Status N/A [facility] Clinical Notes 04-08-2021 to 05-24-2024 Vicki Nickerson LPN - 05/24/2024 11:10 AM MEDHAT Meeks - 05/08/2024 10:30 AM Aurelio Jade DROP FORGER - 04/17/2024 9:50 AM [facility] - 03/16/2024 11:30 AM EDT Note Date & Type Note Facility 05-24-2024 History of Presen t illness Narrative Reason for Appointment: Patient ID: Maribel Velez is a 23 y.o. female who presents for Routine Visit Patient presents today for Return OB appointment. MEDICATIONS Current Outpatient Medications Medication Instructions albuterol (ProAir Digihaler) 90 mcg/act breath-activated inhaler (w/ sensor) 2 puffs, Inhalation, Every 4 hours PRN magnesium oxide (MAG-OX) 400 mg, Oral, Daily Ckcqyjif-Xkg-Lj-FA ( 1 + IRON PO) Oral ALLERGIES [...] nursing note reviewed. Exam conducted with a plant utilities engineer present. Vitals: Estimated body mass index is 21.8 kg/m as calculated from the following: Height as of 04/04/20: 5' 4.75 . Weight as of 04/04/20: 130 lb. BP: 108/76 Patient's last menstrual period was 10/27/2023. ASSESSMENT & PLAN ICD-10-CM 1. Third trimester Z34.93 POCT urinalysis dipstick manually resulted 2. 30 weeks gestation of Z3A.30 POCT urinalysis dipstick manually resulted 3. Anemia during in third trimester O99.013 Return OB: Patient presents today for a routine obstetrics appointment. Patient is currently 30w0d . Patient states she is doing well but has complaints of being tired due to current . Patient has verbalizes frequent movement. labor precautions was discussed/given and patient was instructed to perform kick counts three times a day. Orders Placed This Encounter Procedures POCT urinalysis dipstick manually resulted Follow Up: Patient is to return to office in 2 week for routine OB appointment. Documented by Vicki Nickerson LPN on behalf of: Eldon Mccracken DO documented in this encounter [facility] 05-08-2024 History of Presen t illness Narrative Reason for Appointment: Patient ID: Maribel Velez is a 23 y.o. female who presents for Routine Visit Patient presents today for Return OB appointment. MEDICATIONS Current Outpatient Medications Medication Instructions albuterol (ProAir Digihaler) 90 mcg/act breath-activated inhaler (w/ sensor) 2 puffs, Inhalation, Every 4 hours PRN magnesium oxide (MAG-OX) 400 mg, Oral, Daily Xuveobwq-Ufh-Kh-FA ( 1 + IRON PO) Oral ALLERGIES [...] of: MEDHAT Conde documented in this encounter [facility] 04-17-2024 History of Presen t illness Narrative Reason for Appointment: Patient ID: Maribel Velez is a 23 y.o. female who presents for Routine Visit Patient presents today for Return OB appointment. MEDICATIONS Current Outpatient Medications Medication Instructions albuterol (ProAir Digihaler) 90 mcg/act breath-activated inhaler (w/ sensor) 2 puffs, Inhalation, Every 4 hours PRN magnesium oxide (MAG-OX) 400 mg, Oral, Daily Feqfeari-Gwh-Xc-FA ( 1 + IRON PO) Oral ALLERGIES [...] nursing note reviewed. Exam conducted with a plant utilities engineer present. Vitals: Estimated body mass index is [...] Eldon Mccracken DO documented in this encounter [facility] 03-16-2024 History of Presen t illness Narrative [...] magnesium oxide (MAG-OX) 400 mg, Oral, Daily Gmolyguk-Aox-Ae-FA ( 1 + IRON PO) Oral ALLERGIES [...] of: MEDHAT Conde documented in this encounter [facility] 02-17-2024 History of Presen t illness Narrative Reason for Appointment: Patient ID: Maribel Velez is a 23 y.o. female who presents for Routine Visit Patient presents today for Return OB appointment. MEDICATIONS Current Outpatient Medications Medication Instructions magnesium oxide (MAG-OX) 400 mg, Oral, Daily Qnyqrxrv-Lnu-Ch-FA ( 1 + IRON PO) Oral ALLERGIES Allergies Allergen Reactions Red Dye #40 (Allura Red) Rash PROBLEMS [...] was 10/27/2023. ASSESSMENT & PLAN ICD-10-CM 1. Screening, , for anatomic survey Z36.89 US OB ANATOMY SINGLE W US OB CERVICAL LENGTH 2. Well woman exam with routine gynecological exam Z01.419 Pap Smear 3. 17 weeks gestation of Z3A.17 POCT urinalysis dipstick manually resulted Alpha fetoprotein, maternal SURESWAB(R) ADVANCED VAGINITIS PLUS, TMA CHLAMYDIA TRACHOMATIS (GENITO/STI) Neisseria gonorrhea DNA probe, direct Alpha fetoprotein, maternal 4. Screen for STD (sexually transmitted disease) Z11.3 SURESWAB(R) ADVANCED VAGINITIS PLUS, TMA CHLAMYDIA TRACHOMATIS (GENITO/STI) Neisseria gonorrhea DNA probe, direct 5. Vaginal discharge N89.8 SURESWAB(R) ADVANCED VAGINITIS PLUS, TMA CHLAMYDIA TRACHOMATIS (GENITO/STI) Neisseria gonorrhea DNA probe, direct 6. Nonintractable headache, unspecified chronicity pattern, unspecified headache type R51.9 magnesium oxide (Mag-Ox) 400 MG tablet Return OB: Patient presents today for a routine obstetrics appointment. Patient is currently 16w1d . Patient states she is doing well but has complaints of being tired due to current . Orders Placed This Encounter Procedures US OB ANATOMY SINGLE W US OB CERVICAL LENGTH Alpha fetoprotein, maternal CHLAMYDIA TRACHOMATIS (GENITO/STI) Neisseria gonorrhea DNA probe, direct POCT urinalysis dipstick manually resulted Follow Up: Patient is to return to office in 4 week for routine OB appointment. Documented by MEDHAT Conde on behalf of: MEDHAT Conde documented in this encounter [facility] 02-13-2022 Evaluation + Plan note Extrac kasey [...] should change or worsen. Diagnosis: Rectal bleeding [facility]09-02-2022 Hospital Discharge instructions Patient Education 02/13/2022 07:28:37 Rectal Bleeding, Fqsb-us-Dugt Rectal Bleeding Rectal bleeding is when blood [...] 02/10/2012 Document Revised: 05/13/2018 Document Reviewed: 07/26/2016 [employer] Patient Education 2020 [employer]. 02/13/2022 07:28:37 Hemorrhoids, Alcr-dg-Wxtd Hemorrhoids Hemorrhoids are swollen veins that may [...] 3 times a day. General instructions Take gulf-epa-gzduceu and prescription medicines only as told by [...] 03/09/2009 Document Revised: 06/08/2019 Document Reviewed: 10/20/2018 [employer] Patient Education 2020 [email or web address] Follow Up Care 02/13/2022 06:18:09 With:Yu GREENE Address: [facility] [address] [place] [address] [place] [address]- [facility] (1) When:02/16/2022 07:21:18 With:CAITIE MARSHALL Address:Unknown When:Within 3 Day(s) [facility]05-08-2022 Hospital Discharge instructions Patient Education 10/19/2021 17:18:27 Viral Respiratory Infection, Eafd-Ze-Onwv Viral Respiratory Infection A viral respiratory infection [...] at home: Managing pain and congestion Take jugp-ueu-vumfigk and prescription medicines only as told by [...] water are not available, use hand senior product development engineer. Avoid contact with people who are sick [...] 05/13/2009 Document Revised: 06/08/2019 Document Reviewed: 07/11/2018 [employer] Patient Education 2019 [employer]. Follow Up Care 10/19/2021 17:07:38 With:Michelle Mata Address:Unknown When:10/22/2021 [facility]04-06-2022 Evaluation note* Encounter Date Diagnosis Assessment Notes Treatment Notes Treatment Clinical Notes Sep, Rectal bleeding (ICD-10 - K62.5) PATIENT STATES THIS HAPPENS EVERY COUPLE OF MONTHS Sep, Abdominal pain (ICD-10 - R10.9) PATIENT DID HAVE THIS LAST NIGHT ON THE RIGHT SIDE UNDER HER RIBS PATIENT DOES CONTINUE ON THE MEDICATION WILL ORDER SOME TESTING Sep, Diarrhea (ICD-10 - R19.7) [email or web address] Other 02-15-2022 Evaluation note* Encounter Date Diagnosis Assessment Notes Treatment Notes Treatment Clinical Notes Jul, Blood in stool (ICD-10 - K92.1) Jul, Abdominal pain (ICD-10 - R10.9) [email or web address] Other 01-12-2022 Evaluation note* Encounter Date Diagnosis Assessment Notes Treatment Notes Treatment Clinical Notes Jun, Diarrhea (ICD-10 - R19.7) Jun, Rectal bleeding (ICD-10 - K62.5) PATIENT ENCOURAGED TO HAVE A COLONOSCOPY START ABOVE MEDICATION Jun, Abdominal pain (ICD-10 - R10.9) [email or web address] Other 10-26-2021 Evaluation note* Encounter Date Diagnosis [...] up to a week to get back. [email or web address] Other Chidp complaint+Reason for visit Narrative* Chief Complaint Cough, sinus congest ion Reason for Visit Contact with and (mckee spected) exposure to covid-[address] [facility] Work Phone: Evaluation + Plan note No data available for this section [facility] note[facility] InformationN[facility]Al[facility] [employer] Other Evaluation noteNo assessment information available [facility] Work Phone: Evaluation note* Diagnosis Onset Date Resolution Status Contact with and (suspected) exposure to covid-19 noneactive Sore throat noneactive [facility] Work Phone: Evaluation note* Diagnosis 20 [...] gestation of [facility] in [facility]* Diagnosis Third trimester state, incidental 30 weeks gestation of Anemia during in third trimester Excessive growth affecting management of , antepartum, single or unspecified fetus [facility]* Diagnosis Screening, , for anatomic survey Encounter for anatomic survey Well woman exam with routine gynecological exam Routine gynecological examination 17 weeks gestation of Screen for STD (sexually transmitted disease) Screening examination for venereal disease Vaginal discharge Leukorrhea, not specified as infective Nonintractable headache, unspecified chronicity pattern, unspecified headache type documented in this encounter [facility] Narrative - Reported* Type Description Date Medical History IBS Medical History Constipation Medical History allergies Surgical History right torn lateral meniscus [facility] [employer] Other Hospital Discharge instructions No data available for this section [facility] No data available for this section [facility] Summary Purpose Family History Relationship Condition Age [...] Documents on File Type Date Recorded Patient Applications Intern Expl anation Advance Directives and Living Will Power of Guard Supervisor Advance Directive Response Recorded Date/ Time Advance Directives No April 16, 2021 2:28pm Advance Directive Response Recorded Date/ Time Advance Directives No August 19 3:12pm Assessments Diagnosis Injury of right knee, initial encounter Chief Complaint and Reason for Visit Chief Complaint Dysuria Vaginal odor Additional Source Comments INFORMATION SOURCE (unrecogn ized section and content) DATE CREATED AUTHOR 08/20/2018 [employer] DATE CREATED AUTHOR AUTHOR'S ORGANIZ ATION 11/18/2019 [facility] DATE CREATED AUTHOR AUTHOR'S ORGANIZ ATION 02/17/2022 [facility] DATE CREATED AUTHOR AUTHOR'S ORGANIZ ATION 03/14/2022 [facility] DATE CREATED AUTHOR AUTHOR'S ORGANIZ ATION 07/13/2022 [facility] DATE CREATED AUTHOR AUTHOR'S ORGANIZ ATION 05/27/2024 [facility] dical Specialists EPIC REASON FOR VISIT [...] March 08, 2024 End: March 08, 2024 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 Start Date End Date Unallocated, [place] [address] PCP - General Family Medicine 08/12/23 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 Start Date End Date Unallocated, [facility] [place] [address] PCP - General Family Medicine 08/12/23 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 Start Date End Date Unallocated, MD Satnam Gregorio [facility] [place] [address] PCP - General Family Medicine 08/12/23 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 Start Date End Date Unallocated, Chente Heredia MD [facility] [address]THEW [place]URNS [facility] [place] [address] PCP - General Family Medicine 08/12/23 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 Start Date End Date Unallocated, Chente Heredia MD [facility] [place] [address] PCP - General Family Medicine 08/12/23 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 Start Date End Date Unallocated, Chente Heredia MD [facility] [place] [address] PCP - General Family Medicine 08/12/23 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 Start Date End Date Unallocated, Chente Heredia MD [facility] [place]URNS [facility] [place] [address] PCP - General Family Medicine 08/12/23 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 Start Date End Date Unallocated, Chente Heredia MD [facility] [place]THEW BURNS [facility] [place] [address] PCP - General Family Medicine 08/12/23 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 Start Date End Date Unallocated, Chente Heredia MD [facility] [place]THEW BURNS [facility] [place] [address] PCP - General Family Medicine 08/12/23 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 Start Date End Date Unallocated, Chente Heredia MD [address] [place] [address] [place] [address] PCP - General Family Medicine 08/12/23 Goals [...] BE BASED ON THE PRIMARY CLINICAL RECORDS. [employer] [facility]. provides no warranty or guarantee of the accuracy or completeness of information in this document.
[2024-06-05 12:00] LABS: Estimated Average Glucose 111 mg/dL; Glycohemoglobin A1C 5.5 % (4.5-6.2)
== END 2024-06-05 11:30 | disposition home or self-care (01) ==
LOC: LAB 11:29
PROVIDERS: Visit Provider Obstetrics & Gynecology
DX: Z34.93 Encounter for supervision of normal pregnancy, unspecified, third trimester (principal)
CPT/HCPCS: 36415; 83036

== ENCOUNTER 2024-06-22 10:23 | Outpatient (OUT) | payer MEDICAID, SELFPAY ==
[2024-06-22 11:00] LABS: Basophils Percent Auto 0.2 % (0.2-2.0); Eosinophils Absolute Auto 0.1 10^3/uL (0.0-0.7); Eosinophils Percent Auto 0.6 % (0.9-7.0); Hemoglobin 8.3 g/dL (12.0-16.0); Lymphocytes Absolute Auto 2.1 10^3/uL (1.2-3.8); Lymphocytes Percent Auto 22.1 % (20.5-60.0); Mean Corpuscular HGB Conc 30.7 g/dL (29.9-35.2); Mean Corpuscular Hemoglobin 25.5 pg (26.7-34.0); Mean Corpuscular Volume 82.8 fL (81.0-99.0); Mean Platelet Volume 9.1 fL (9.5-13.5); Monocytes Absolute Auto 0.8 10^3/uL (0.3-0.8); Monocytes Percent Auto 8.5 % (1.7-12.0); Neutrophils Absolute Auto 6.4 10^3/uL (1.4-6.5); Neutrophils Percent Auto 67.6 % (43.0-75.0); Platelet Count 282 10^3/uL (150-450); Red Blood Count 3.26 10^6/uL (4.20-5.40); Red Cell Distribution Width 13.5 % (11.0-15.0); White Blood Count 9.5 10^3/uL (4.0-11.0)
== END 2024-06-22 10:24 | disposition home or self-care (01) ==
LOC: LAB 10:24
PROVIDERS: Visit Provider Obstetrics & Gynecology
DX: Z13.1 Encounter for screening for diabetes mellitus (principal)
CPT/HCPCS: 36415; 85025

== ENCOUNTER 2024-06-29 10:17 | Outpatient (OUT) | payer MEDICAID, SELFPAY ==
--- OUTSIDE RECORDS SUMMARY | 2024-06-29 10:35 | XMS_ITS | CCD ---
Author Organization [facility] Care Team Providers Care Accounting Lecturer Name Role Phone PROVIDER, UNKNOWN Attending Unavailable PROVIDER, UNKNOWN Referring Unavailable Bal[place], PCP Primary Care Unavailable Joe Perez Primary Care Provider UnavailMICHAEL Staley Referring Unavailab JOE Asif Primary Care Unavailable MICHAEL SMALLS Referring Unavailab JOE Asif Primary Care Unavailable JOE PEREZ Primary Care Physician [phone] Maribel Randall Unavailable Amy Goodrich Unavailable CAITIE MARSHALL Primary Care Physician CAITIE MARSHALL Primary Care Physician MD Lucia Thorne Attending Provider Lucia Thorne Admitting Unavailable Lucia Thorne Attending Unavailable NON STAFF Primary Care Unavailable Amy Goodrich Attending Unavailable Amy Goodrich Admitting Unavailable Joe Perez Primary Care Unavailable Amy Goodrich Attending Unavailable Joe Perez Primary Care Unavailable Amy Goodrich Admitting Unavailable Maribel Randall Admitting Unavailable Maribel Randall Attending Unavailable [facility] Primary Care Unavaila ble Amy Goodrich Attending Unavailable Joe Perez Primary Care Unavailable Amy Goodrich Admitting Unavailable Amy Goodrich Attending Unavailable Joe Perez Primary Care Unavailable Amy Goodrich Admitting Unavailable PAY, DR MARCUS Admitting Unavailable PAY, DR MARCUS Attending Unavailable PAY, DR MARCUS Consulting Unavailable PEREZ, DR JOE Joseph Primary Care Unavailable MEDHAT PEREZ Consulting Unavailable JOSE G, DR JOE Joseph Primary Care Unavailable AMY GOODRICH JR Admitting Unavailable ZIBIBI, DR SUGAR Zhang Consulting Unavailable AMY GOODRICH JR Attending Unavailable AMY GOODRICH JR Consulting Unavailable JOSE G, DR JOE Joseph Consulting Unavailable JOSE G, DR JOE Joseph Primary Care Unavailable JOSE G, DR JOE Joseph Admitting Unavailable JOSE G, DR JOE Joseph Attending Unavailable MACARENA, DR TYLER Admitting Unavailable JOSE G, DR JOE Joseph Primary Care Unavailable MACARENA, DR TYLER Attending Unavailable MACARENA, DR TYLER Consulting Unavailable Unallocated , [facility] Provider Primary Care Provi fatuma Unallocated , [facility] Provider Primary Care Provi fatuma AMBREEN DAN Attending Unavailable KAYKAY, ELDON Attending Unavailable MORELIA, MARYCARMEN Attending Unavailable MORELIA, MARYCARMEN Attending Unavailable KAYKAY, ELDON Attending Unavailable MORELIA, MARYCARMEN Attending Unavailable KAYKAY, ELDON Attending Unavailable KAYKAY, ELDON Attending Unavailable MORELIA, MARYCARMEN Attending Unavailable Allergies Allergy Classification Reported Allergen(s) Allergy Type Date of Onset Reaction(s) Facility (20 sources) Contrast media; 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: [red dye] Drug allergy 7 [employer] Other (20 sources) Red Dye #40 (Allura Red) Allergy to substance 3 [facility] Resource [employer]uru Work Phone: Medications Current Medications Medication Drug Class(es) Dates Sig (Normalized) Sig (Original) sensor 200 actuat albuterol 0.09 mg/actuat dry powder inhaler (17 sources) beta2-Adrenergic Agonist Start: 03-08-2024 End: 06-08-2024 take 2 puff(s) by inhalation every four hours albuterol (ProAir Digihaler) 90 mcg/act breath-activated inhaler (w/ sensor) Inhale 2 puffs every 4 (four) hours if needed 03/08/2024 06/08/2024 Discontinued Start: 03-08-2024 Albuterol Sulf ate Active 2 [...] Active magnesium oxide 400 mg oral tablet (20 sources) Start: 02-17-2024 End: 09-14-2024 take 1 tablet by mouth once daily magnesium oxide (Mag-Ox) 400 MG tablet Indications: Nonintractable headache, unspecified chronicity pattern, unspecified headache type Take 1 tablet (400 mg) by mouth Daily 30 tablet 6 02/17/2024 09/14/2024 Active polysaccharide iron complex 391 mg oral capsule (6 sources) Start: 05-24-2024 End: 06-23-2024 take 1 capsule by mouth once daily iron polysaccharides (ProFe) 391.3 (180 Fe) MG capsule Indications: Anemia during in third trimester Take 1 capsule (391.3 mg) by mouth Daily 30 capsule 6 05/24/2024 06/08/2024 Discontinued pramoxine hydrochloride 10 mg/ml rectal foam (1 source) Start: 02-13-2022 End: 02-20-2022 take 15 g rectal route twice daily ProctoFoam 1% Foam apply, Rectal, BID for 7 day(s), 15 gm, Refill(s) 0, [facility]/pharmacy #[id number], 162, cm, 02/13/22 6:24:00 EDT, Height/Length Dosing, 61, kg, 02/13/22 6:24:00 EDT, Weight Dosing Start Date: 02/13/22 Stop Date: 02/20/22 Status: Ordered Nlzrovru-Fyt-Cx-FA ( 1 + IRON PO) (20 sources) Nbykpsuv-Mwo-Lm-FA ( 1 + IRON PO) Take by [...] oral tablet (1 source) alpha-Adrenergic Agonist, Uncompetitive F-etjydz-E-aspartat e Receptor Antagonist, Sigma-1 Agonist Start: 08-20-2023 [...] Onset: 06-17-2022 Episodic Other aftercare (1 source) ocean transportation intermediary (current) use of hormonal contraceptives; 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: [[facility] HORMONAL CONTRACEPTIVES] Onset: 06-18-2022 Episodic Other circulatory disease (2 sources) Other specified symptoms and signs involving the circulatory and respiratory systems; 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: [Oth symptoms and signs involving the circ and resp systems] Onset: 08-10-2018 Episodic Other complications of (2 sources) Anemia of ; 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: [Anemia complicating , third trimester] 05-24-2024 Chronic Other complications of (4 sources) Excessive growth affecting management of mother; [...] 10-19-2021 Episodic Other and delivery including normal (12 sources) Second trimester ; 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: [Encounter for [...] of ] 03-16-2024 Episodic Residual codes; unclassified (19 sources) Gestation period, 24 weeks; 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: [24 weeks gestation of ] Onset: 04-17-2024 04-17-2024 Episodic Residual codes; unclassified (2 sources) Gestation period, 29 weeks; 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: [29 weeks gestation of ] 05-08-2024 Episodic Residual codes; unclassified (2 sources) Gestation period, 30 weeks; 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: [30 weeks gestation of ] 05-24-2024 Episodic Residual codes; unclassified (2 sources) Gestation period, 32 weeks; 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: [32 weeks gestation of ] 06-08-2024 Episodic Residual codes; unclassified (2 sources) Gestation period, 34 weeks; 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: [34 weeks gestation of ] 06-22-2024 Episodic Skin and subcutaneous tissue infections (1 [...] Test Name Value Interpretation Reference Range Facility ALL CBC WITH AUTO DIFFon BASOPHILS ABSOLUTE AUTO 0 [facility] Healthcare Basophils/100 WBC (Bld) 0.2 % 0.2 - 2.0 % [facility] Eosinophils/100 WBC (Bld) 0.6 % Low 0.9 - 7.0 % [facility] Erythrocyte distribution width (RBC) [Ratio] 13.5 % 11.0 - 15.0 % [facility] Hematocrit (Bld) [Volume fraction] 27 % Low 36.0 - 48.0 % [facility] Hemoglobin (Bld) [Mass/Vol] 8.3 g/dL Low 12.0 - 16.0 g/dL [facility] IMMATURE GRANULOCYTES ABS AUTO 0.1 High [facility] Immature granulocytes/100 WBC (Bld) 1 % High 0.0 - 0.5 % [facility] Interpretation and review of laboratory results Abnormal [facility] LYMPHOCYTES ABSOLUTE AUTO 2.1 [facility] Lymphocytes/100 WBC (Bld) 22.1 % 20.5 - 60.0 % [facility] MCH (RBC) [Entitic mass] 25.5 pg Low 26.7 - 34.0 pg [facility] MCHC (RBC) [Mass/Vol] 30.7 g/dL 29.9 - 35.2 g/dL [facility] MCV (RBC) [Entitic vol] 82.8 fL 81.0 - 99.0 fL [facility] MONOCYTES ABSOLUTE AUTO 0.8 [facility] Monocytes/100 WBC (Bld) 8.5 % 1.7 - 12.0 % [facility] NEUTROPHILS ABSOLUTE AUTO 6.4 [facility] Neutrophils/100 WBC (Bld) 67.6 % 43.0 - 75.0 % [facility] Platelet mean volume (Bld) [Entitic vol] 9.1 fL Low 9.5 - 13.5 fL [facility] TBH EO # 0.1 [facility] TB PLT 282 [facility] TB RBC 3.26 Low [facility] TBH WBC 9.5 [facility] Healthcar e [facility] Urinalysis macro (dipstick) panel (U)on 06-22-2024 Bilirubin, UA Negative Negative - 4(70) +++ mg/dL [facility] Blood, UA Negative Negative - 50 Erwin/mcL [facility] Clarity, UA Clear [facility] re Color, UA Yellow [facility] Glucose, UA Negative Negative - 1999(110) ++++ mg/dL [facility] Interpretation and review of laboratory results Abnormal [facility] Ketones, UA Negative Negative - 160(16) ++++ mg/dL [facility] Leukocytes, UA Negative Negative - 500+++ Kevin/mcL [facility] Nitrite, UA Negative Negative - Positive [facility] pH, UA 6.5 5 - 9 [facility] Protein, UA Trace Negative - 1999(20) ++++ mg/dL [facility] Spec Grav, UA 1.025 1 - 1.03 [facility] Urobilinogen, UA 0.2 0.2 - 12 mg/dL [facility] Urinalysis macro (dipstick) panel (U)on 06-08-2024 Bilirubin, UA Negative Negative - 4(70) +++ mg/dL [facility] Blood, UA Negative Negative - 50 Erwin/mcL [facility] Healthcare Clarity, UA Clear [facility] Healthca re Color, UA Yellow [facility] Healthcar e Glucose, UA Negative Negative - 1999(110) ++++ mg/dL [facility] Interpretation and review of laboratory results Normal [facility] Ketones, UA Negative Negative - 160(16) ++++ mg/dL [facility] Leukocytes, UA Negative Negative - 500+++ Kevin/mcL [facility] Nitrite, UA Negative Negative - Positive [facility] pH, UA 6 5 - 9 [facility] Healthcar e Protein, UA Negative Negative - 1999(20) ++++ mg/dL [facility] Spec Grav, UA 1.025 1 - 1.03 [facility] Urobilinogen, UA 0.2 0.2 - 12 mg/dL [facility] MLR HEMOGLOBIN A1Con 024 Glucose [Mass/Vol] 111 mg/dL [facility] HbA1c (Bld) [Mass fraction] 5.5 % 4.5 - 6.2 % [facility] Comment on above: ADA RECOMMENDED LIMI T 4.0 - 6.0 ADA THERAPEUTIC TARGET < 7.0 ACTION SUGGESTED > 7.0 [facility] Healthcar e Urinalysis macro (dipstick) panel (U)on 05-24-2024 Bilirubin, UA Negative Negative - 4(70) +++ mg/dL [facility] Blood, UA Negative Negative - 50 Erwin/mcL [facility] Clarity, UA Clear [facility] Healthga re Color, UA Yellow [facility] Healthcar e Glucose, UA Negative Negative - 1999(110) ++++ mg/dL [facility] Interpretation and review of laboratory results Abnormal [facility] Ketones, UA Negative Negative - 160(16) ++++ mg/dL [facility] Leukocytes, UA Negative Negative - 500+++ Kevin/mcL [facility] Nitrite, UA Negative Negative - Positive [facility] pH, UA 6.5 5 - 9 [facility] Healthcar e Protein, UA Many Negative - 1999(20) ++++ mg/dL [facility] Spec Grav, UA 1.025 1 - 1.03 [facility] Urobilinogen, UA 1.0 0.2 - 12 mg/dL [facility] ALL TYPE AND SCREENon 2023 ABO and Rh group Nom (Bld) Blood group A Rh(D) negative [facility] , [facility] Urinalysis macro (dipstick) panel (U)on 05-08-2024 Bilirubin, UA Negative Negative - 4(70) +++ mg/dL [facility] Healthcare Blood, UA Negative Negative - 50 Erwin/mcL [facility] Healthcare Clarity, UA Clear [facility] re Color, UA Yellow [facility] Glucose, UA Negative Negative - 1999(110) ++++ mg/dL [facility] Interpretation and review of laboratory results Normal [facility] Ketones, UA Negative Negative - 160(16) ++++ mg/dL [facility] Healthcare Leukocytes, UA Negative Negative - 500+++ Kevin/mcL [facility] Healthcare Nitrite, UA Negative Negative - Positive [facility] Healthcare pH, UA 6 5 - 9 [facility] Protein, UA Negative Negative - 1999(20) ++++ mg/dL [facility] Healthcare Spec Grav, UA 1.02 1 - 1.03 [facility] Health [facility] Urobilinogen, UA 1.0 0.2 - 12 mg/dL [facility] Urinalysis macro (dipstick) panel (U)on 04-17-2024 Bilirubin, UA Negative Negative - 4(70) +++ mg/dL [facility] Blood, UA Negative Negative - 50 Erwin/mcL [facility] Healthcare Clarity, UA Clear [facility] Color, UA Yellow [facility] Glucose, UA Negative Negative - 1999(110) ++++ mg/dL [facility] Interpretation and review of laboratory results Normal [facility] Ketones, UA Negative Negative - 160(16) ++++ mg/dL [facility] Healthcare Leukocytes, UA Negative Negative - 500+++ Kevin/mcL [facility] Healthcare Nitrite, UA Negative Negative - Positive [facility] Healthcare pH, UA 6 5 - 9 [facility] Protein, UA Negative Negative - 1999(20) ++++ mg/dL [facility] Healthcare Spec Grav, UA 1.02 1 - 1.03 [facility] Urobilinogen, UA 0.2 0.2 - 12 mg/dL [facility] Urinalysis macro (dipstick) panel (U)on 03-16-2024 Bilirubin, UA Negative Negative - 4(70) +++ mg/dL [facility] Blood, UA Negative Negative - 50 Erwin/mcL [facility] Clarity, UA Clear [facility] re Color, UA Yellow [facility] Glucose, UA Negative Negative - 1999(110) ++++ mg/dL [facility] Interpretation and review of laboratory results Normal [facility] Ketones, UA Negative Negative - 160(16) ++++ mg/dL [facility] Leukocytes, UA Negative Negative - 500+++ Kevin/mcL [facility] Nitrite, UA Negative Negative - Positive [facility] pH, UA 5.5 5 - 9 [facility] Healthcar e Protein, UA Negative Negative - 1999(20) ++++ mg/dL [facility] Spec Grav, UA 1.020 1 - 1.03 [facility] Urobilinogen, UA 1.0 0.2 - 12 mg/dL [facility] No Panel InformationOrdered By: Shanice Bustamante on 03-08-2024 Quick Strep (POC) [place] AFP, SERUM, OPEN SPINA BIFID Aon 02-19-2024 AFP MOM 0.63 . [facility] AFP VALUE 26.1 ng/mL . [facility] COMMENT: Comment . [facility] Healthcar e Comment on above: So Carcamo , Ph.D., [facility] Director References: Available Upon Request. Multiples Of Median Cutoffs For AFP Elevations Barajas 2.5 Black 2.8 IDD 2.0 Twins 4.5 Abbreviation Definitions IDD - Insulin Dep Diabetes OSBR - Open Spina Bifida Risk For further inquiries contact [facility] at [phone]. This test was developed and its performance characteristics determined by [employer]. It has not been cleared or approved by the Food and Drug Administration. Performed at: [facility] [address], [place], [place] [id number] Audit Reviewer: Marci Lewis [facility], Phone: [phone] GEST. AGE ON COLLECTION DATE 17.6 . weeks [facility] GESTAT. AGE BASED ON LMP . [facility] Comment on above: Recalculations are n ot recommended when gestational dating by LMP and ultrasound are within 10 days. INSULIN DEP DIABETES No . [facility] Healthcare INTERPRETATION Comment . [facility] Comment on above: Interpretation: Scre [...] Customer Services to discuss available options. The [employer] recommends amniocentesis be offered to women age 35 and older. [age] [facility] MULTIPLE GESTATION No . [facility] [place] [address] [place] [phone] . [facility] RACE . [facility] Healthcar e RESULTS Report . [facility] Healthcar e TEST RESULTS: Negative . [facility] WEIGHT 147 . lbs [facility] Healthcar e N N LMP [id number] 17 N 1 Y 147 N N N N N White/ [facility] URETHRITIS/DISCHARGE PLUS VA GINITIS (HTRX)on 02-19-2024 ATOPOBIUM VAGINAE 15.349 Abnormal [facility]care ATOPOBIUM VAGINAE Detected Abnormal [facility] BVAB 2,3 (BACTERIAL VAGINOSIS ASSOCIATED BACTERIA 2, 3); MOBILUNCUS SPP 0.000 [facility] BVAB 2,3 (BACTERIAL VAGINOSIS ASSOCIATED BACTERIA 2, 3); MOBILUNCUS SPP Not detected [facility] ALLAN ALBICANS, PARAPSILOSIS, TROPICALIS 0.000 [facility] ALLAN ALBICANS, PARAPSILOSIS, TROPICALIS Not detected [facility] ALLAN GLABRATA 0.000 [facility] ALLAN GLABRATA Not detected [facility] ALLAN KRUSEI 0.000 [facility] ALLAN KRUSEI Not detected [facility] ltare CHLAMYDIA TRACHOMATIS 0.000 [facility] CHLAMYDIA TRACHOMATIS Not detected N [facility] ERMB, C; MEFA 18.780 Abnormal [facility] care ERMB, C; MEFA Detected Abnormal [facility] care GARDNERELLA VAGINALIS 16.918 Abnormal [facility] GARDNERELLA VAGINALIS Detected Abnormal [facility] Healthcare Interpretation and review of laboratory results Abnormal [facility] MEGASPHAERA (TYPES 1, 2) 0.000 [facility] MEGASPHAERA (TYPES 1, 2) Not detected [facility] MYCOPLASMA GENITALIUM 0.000 [facility] MYCOPLASMA GENITALIUM Not detected [facility] NEISSERIA GONORRHOEAE 0.000 [facility] NEISSERIA GONORRHOEAE Not detected [facility] TET B, TET M 18.993 Abnormal [facility] are TET B, TET M Detected Abnormal [facility] are TRICHOMONAS VAGINALIS 0.000 [facility] TRICHOMONAS VAGINALIS Not detected [facility] Urinalysis macro (dipstick) panel (U)on 02-17-2024 Bilirubin, UA Negative Negative - 4(70) +++ mg/dL [facility] Blood, UA Positive Negative - 50 Erwin/mcL [facility] Comment on above: trace-intact Clarity, UA Clear [facility] re Color, UA Yellow [facility] e Glucose, UA Negative Negative - 1999(110) ++++ mg/dL [facility] Interpretation and review of laboratory results Abnormal [facility] Ketones, UA Negative Negative - 160(16) ++++ mg/dL [facility] Leukocytes, UA Positive Negative - 500+++ Kevin/mcL [facility] Comment on above: moderate Nitrite, UA Negative Negative - Positive [facility] pH, UA 7.0 5 - 9 [facility] e Protein, UA Negative Negative - 1999(20) ++++ mg/dL [facility] Spec Grav, UA 1.030 1 - 1.03 [facility] Urobilinogen, UA 0.2 0.2 - 12 mg/dL [facility] e CULTURE URINEon 07-12-2022 CULTURE URINE Isolate [...] F Tetracycline >=16 R F Normal [facility] Comment on above: Performed By: #### U RCX #### [facility] [address] [place] [address] Dr. Venancio Soriano ER URINE PROFILEon 3 Bilirubin Ql (U) Negative Normal NEGATIVE [facility] Comment on above: Performed By: #### U MICRO, PREGU, ERUR #### [facility] [address] [address] [address] Venancio Soriano Clarity (U) CLEAR Normal CLEAR [facility] Comment on above: Performed By: #### U MICRO, PREGU, ERUR #### [facility] [address] [address] [address] Venancio Soriano Color (U) LT. YELLOW Normal YELLOW [facility] Comment on above: Performed By: #### U MICRO, PREGU, ERUR #### [facility] [address] [place] [address] Dr. Venancio SALINASD A micrscopic examination will be performed if indicated. Normal [facility] Comment on above: Performed By: #### U MICRO, PREGU, ERUR #### [facility] [address] [address] [address] Venancio Soriano Glucose Ql (U) Negative Normal NEGATIVE The [facility] Comment on above: Performed By: #### U MICRO, PREGU, ERUR #### [facility] [address] [address] [address] Venancio Soriano Hemoglobin Ql (U) TRACE-INTACT Abnormal NEGATIVE [facility] Comment on above: Performed By: #### U MICRO, PREGU, ERUR #### [facility] [address] [address] [address] Venancio Soriano Ketones Ql (U) Negative Normal NEGATIVE The [facility] Comment on above: Performed By: #### U MICRO, PREGU, ERUR #### [facility] [address] [address] [address] Venancio Soriano LEUKOCYTES SMALL Abnormal NEGATIVE [facility] Comment on above: Performed By: #### U MICRO, PREGU, ERUR #### [facility] [address] [place] [address] Dr. Venancio Soriano Nitrite Ql (U) Negative Normal NEGATIVE [facility] Comment on above: Performed By: #### U MICRO, PREGU, ERUR #### [facility] [address] [address] [address] Venancio Soriano pH (U) 6.0 [pH] Normal 5-9 [facility] Comment on above: Performed By: #### U MICRO, PREGU, ERUR #### [facility] [address] [address] [address] Venancio Soriano SPEC GRAVITY 1.025 Normal 1.005-<=1.02 5 [facility] Comment on above: Performed By: #### U MICRO, PREGU, ERUR #### [facility] [address] [address] [address] Venancio Soriano UA PROTEIN Negative Normal NEGATIVE/ TRACE [facility] Comment on above: Performed By: #### U MICRO, PREGU, ERUR #### [facility] [address] [address] [address] Venancio Soriano UR MICRO IND INDICATED Normal [facility] Comment on above: Performed By: #### U MICRO, PREGU, ERUR #### [facility] [address] [address] [address] Venancio Soriano Urobilinogen Qn (U) 0.2 {Erick'U}/dL Normal 0.2 - 1. 0 [facility] Comment on above: Performed By: #### U MICRO, PREGU, ERUR #### [facility] [address] [address] [address] Venancio Soriano URon 07-10-2022 , QUAL Negative Normal NEGATIVE [facility] Comment on above: Performed By: #### U MICRO, PREGU, ERUR #### [facility] [address] [address] [address] Venancio Soriano URINE MICROSCOPIC ONLYon BACTERIA TRACE Abnormal NONE SEEN [facility] Comment on above: Performed By: #### U MICRO, PREGU, ERUR #### [facility] [address] [address] [address] Venancio Soriano Bacteria identified Cx Nom (U) INDICATED Normal [facility] Comment on above: Performed By: #### U MICRO, PREGU, ERUR #### [facility] [address] [address] [address] Venancio Soriano CAST NONE SEEN Normal NONE SEEN [facility] Comment on above: Performed By: #### U MICRO, PREGU, ERUR #### [facility] [address] [address] [address] Venancio Soriano Crystals LM Nom (Urine sed) NONE SEEN Normal NONE SEEN [facility] Comment on above: Performed By: #### U MICRO, PREGU, ERUR #### [facility] [address] [address] [address] Venancio Soriano Epithelial cells LM Ql (Urine sed) RARE Normal NONE SEEN /RARE [facility] Comment on above: Performed By: #### U MICRO, PREGU, ERUR #### [facility] [address] [place] [address] Dr. Venancio Soriano MUCOUS NONE SEEN Normal NONE SEEN [facility] Comment on above: Performed By: #### U MICRO, PREGU, ERUR #### [facility] [address] [address] [address] Venancio Soriano RBC 0-2 Normal 0-2 [facility] Comment on above: Performed By: #### U MICRO, PREGU, ERUR #### [facility] [address] [address] [address] Venancio Soriano WBC 5-10 Abnormal NONE SEEN [facility] Comment on above: Performed By: #### U MICRO, PREGU, ERUR #### [facility] [address] [address] [address] Venancio Soriano Urine Cultureon 03-02-2022 Bacteria identified Cx Nom (U) Reason for Exam Dysuria Urine No Growth 2 Days PERFORMED BY: [facility] Rina BAKER [place] [address] PATHOLOGIST PERSONNEL REPRESENTATIVE EDDIE CORTÉS M.D. Normal [facility] Comment on above: Performed By: #### V AGINITIS+ #### [facility] , #### CUU #### [address] Vaginitis Plus (VG+)on 03-02 Atopobium Vaginae Moderate - 1 Normal . [facility] Comment on above: Order Comment: Reaso n for Exam Vaginal odor Performed By: #### V AGINITIS+ #### [facility] , #### CUU #### [facility] [address] [place] [address] [place] BVAB2 Low - 0 Normal . [facility] Comment on above: Order Comment: Reaso n for Exam Vaginal odor Performed By: #### V AGINITIS+ #### [facility] , #### CUU #### [address] Allan Albicans, YUNIOR Negative Normal Negative [facility] Comment on above: Order Comment: Reaso n for Exam Vaginal odor Result Comment: This test was developed and its performance characteristics determined by [facility]. It has not been cleared or approved by the Food and Drug Administration. Performed By: #### V AGINITIS+ #### [facility] , #### CUU #### [place] [address] [place] Allan Glabrata, YUNIOR Negative Normal Negative [facility] Comment on above: Order Comment: Reaso n for Exam Vaginal odor Result Comment: This test was developed and its performance characteristics determined by [facility]. It has not been cleared or approved by the Food and Drug Administration. PERFORMED BY: [place] [address] PATHOLOGIST PERSONNEL REPRESENTATIVE EDDIE CORTÉS M.D. Performed By: #### V AGINITIS+ #### [facility] , #### CUU #### [address] Chlamydia Trachomotis, YUNIOR Negative Normal Negative [facility] Comment on above: Order Comment: Reaso n for Exam Vaginal odor Performed By: #### V AGINITIS+ #### [facility] , #### CUU #### [facility] [address] Megasphaera Low - 0 Normal . [facility] Comment on above: Order Comment: Reaso [...] developed and its performance characteristics determined by [facility]. It has not been cleared or approved by the Food and Drug Administration. Performed By: #### V AGINITIS+ #### [facility] , #### CUU #### [address] Neisseria Gonorrhoeae, YUNIOR Negative Normal Negative [facility] Comment on above: Order Comment: Reaso n for Exam Vaginal odor Result Comment: Perf ormed at: =G - [facility] [address] [id number] Audit Reviewer: Kim Anderson MD, Phone: [phone] Performed By: #### V AGINITIS+ #### [facility] , #### CUU #### [facility] [address] [place] [address] Tric Vag YUNIOR Negative Normal Negative [facility] Comment on above: Order Comment: Reaso n for Exam Vaginal odor Performed By: #### V AGINITIS+ #### [facility] , #### CUU #### [facility] [address] [place] [address] Coding Summary.on 02-17-2022 Coding Summary. CD:[id number] Gh0bWw+PGhlYWQ+PE1FV EKcN72vcFCgnP4QB2kSB N0NHWRSHFRZCN6BPE0tm PX7PWcyK6MfviQa ZsfcxNGsAP59IAn6AEU1 gDcrDSgcnY7fyNAhF9t0 ZaHiOY89gQ18SHkkUUFn JgW9QmMhkrigwHMy P4bhByQyvBHqExr+PHRh YmxlIHdpZHRoPScxMDAl JiGksShbFY6dDb6oZSYn LWNvbGxhcHNlOiBj v9bnIOEcGAztXO1elJev O4JrqZH4UBGgb4k3Sk48 dHI+FFGxZNY4qFmfLDvu r836ElCgo4syWPK1 mNPeWTxiCUE4J75kp4R1 BTHgBPXzKBW9oYU5lB6c bJfgmhqbE4QfbRTbBlW3 SDI4oBGeeH2dvScq hqoryU5fQja+Q95QNK9E NJYUVE5NPdz3O0DrRxlv dHI+NK99DENfWX09fRVg rBGfl0yinNg0IpYb SUHfSJW8iRskGDlko1Yq ZDMyV76jqFPjs5S6NTWu zVpojINcQnJduNF4cW7c AUqsiuaen3mkvryf Eyzps3tqsl02fO23W65w XSifBYFnCMY0JUYmUKKa rJaagb7zeN3oNd1+IDxj d5xzx9sajWw1CdSv ZMHrccNtjZfbYZU9r2Ao Os13V9YmwZkai6StDdh9 fm87rNHsp2Q9aKB5ODch XSYujA6bRSiwPhK1 CNDyZcShkR35qHSsFUtz Ns0siAoqzGdwAO1dRGDz wpidSZTieR9pUGCzzSGw sVgmIO7sYAMgzbck y209IwFsSBN2FUGswQSc U9TpiX3zUsUqGSTxMGAq G3SrbUHpJYxcL807NYyc ZtV8RSKfmsBpQ6Mw LORivJxzPaL9d0Z7Jd1N h8KfxumkWPE9QCecKFZ8 PjR0StUaBmD4J8PiVim5 KJVvnGxbQN8bW0Dw XEMduurrxblzmJO6AUJv FMVuuN71fHWmKOilYz6m n8T7v018UXVfWGJwbN01 Sw8ziNctXFVaeQKG wD0emdgyj0kosyckJpZf IBQsWHw3BWw5LMKkgWhe UwPxUFD6LhV0LJM1lEAz nB0jfVtirafglX0m Oyc+L09dlN8rTSW8ELW0 htikAHXwnuJpTN74ZJ10 L0EvBoamsVEnlQR+PGRp jbBbkTwnOU5vMfNe j4pbc6VsLIwyK9KzVBOu VCerCtw6AOXzDGP0tDV1 sZ9dTYRyCHsiq1G6dKM7 L8LaniIlui3cz6de CWPlXRtpU07daPDbk6A5 RCPicDH3OAQjdGxnUbGi jQ39Yct+YKJauGrcy0Pb Tynxi5hbg9azpVo0 IjMwJSIgdmFsaWduPSJ0 z0SdLm71Y10mXFyqMSMk QYCzEVQzDYEboIbhez5x xW4wAc3+PGNvbCB3 fPK0kY3uBGSdOaY8BJfh V017MgWudGFjUquyc2wa m6rtvCo6XeKtRRYuurZk nZxyBGD5q9HeSf92 C05aPIyoILHcFAXfFEWi CHXvhCgkjj0vzU5tAo1+ DW8pz1pzae79qG79qNO+ BPYcKHO0vHgpIKqz SPCujB6aYKwtUjA4DHPv JiYdsX97kNFeWKliEl1j nNxsvEzyFP1wZYXjszlp t172SeXrr6slXIIh mRPnXBwmRHQ2Y34yk4X7 ZWYtSAVhEZP0sAX0zF0v bGlnbjogbGVmdDsgdmVy uBcdJKfxXDacF380 IHRvcDsnPlBhdGllbnQg WtVfHPc2N0EuNwa9GQLf jVbaGM9maEMhMYatNe1n lQvyqDunCD1fCTSi uyhvb638GuUdw0osOYIn iUNxQSicAAI6V66xv1W0 AGKmXDVlETE8aHR1iW5z bGlnbjogbGVmdDsg faYjuSphQPamGLtoS430 IHRvcDsnPkJpcnRoIERh cJZ9NV41LY07aKDxu1R6 vDP5X4XyGMGjfetw mzzpjCX1UZOrUCIsfO56 Un5bjIiqDp2tJXPbURB3 XUFcvOPhZ8FibM0vUgKx TNPeMZQnY5BqjZWh JUbqK217GXrxUdE6JZIr wzZpM1RsGJYkxNwlFfE5 w7Z7Wu8LU1R4YK60SY00 pFHib5T6qUS6W7Ut SORgesipsadknOU3UOGt SIXbjP33Fv3ciFcbWi2v HLThEFM0JJScvIJrZ9Mu iV5sVgNmKNIbGZVn A3TroATbWVlbM375BXnn LoW9SJUnyrAcI2HtQQKm oLueLvL3u9N3Vc8MGUt8 QU94LK45wZJlo3B2 bED5W6QoUYBxptaktwfz kYL7TUVfDXHmuC55Ts3f yLemJl4aKTAtRSH1ZUNp gCCuT9HtzW5xCpKh DPSwZOPeL3UkzDVbNNeg H971WOqmQeW6FUDnknEt B6BoTJVirVnpNjT6w7F7 Gg6DIXSpOP16ZNV3 hWF9FG69GH00A4EnHckd dGFibGU+PHRhYmxlIHdp ZHRoPScxMDAlJyBzdHls TZ5fIr0uCBEiBSMu tXxjzXAtQxRvd4nzBYTt YVaoLW3duXnbZ4PgsRF1 HCMgu5q2Ey74O04lV2Qg dXA+PWGzjIR0jIC6 oD7pOjDjSrE8NUfvF126 KgCdpNAwBdyli4oil8cp tXx0UnF5TDLunjIquYwr WQB5q2KxEk62U35i IHdpZHRoPSIxNSUiIHZh yUxtwq9ciV8mSz2+PGNv rWR1lGP7kA8sXiDxHrE4 VAyoB857QoMhaZFe Vhcra3iyn6pjsLa0RyLa PBRogrGjpYgtRVG4h8Fh Mr73F7QpuWhqo4ThOdy3 hg36zTKde2U2tIY2 R1GcBVBfaqdguAZobLlh XR8vDJSwvgpmTWXueG2y EYFrM3r8WeWaWmV8FLpq X8BgepY7VNUduYYt UAylUBI3D56of7M4BDKi ZUDjQVV1yJS8cK7eiSlv bjogbGVmdDsgdmVydGlj NYycCViuU866NAAy mGmtNYHetE5aECAppFYt rPezRN5dEWXdtfuwEfLN UEeMDLwmA5TRRUbTNjpW KG69XR72fSHhk0V0 bLN5H1AkSLTaiwibbdeg oZH8ABRdOHWhrZ78nNGl NJliSl0sv5Z8i931LEMe WRNzlL34Vk7pmZbx SOYefPZKsF5qmpssn3gk ftyqYyXcCPPfYVf2AMd0 DKYpwOnnAyHeYYJ9XpL1 LDW7uRYsdD4doLgk wcvwoA3vEmd+MDIvMTkv MjAwMzwvdGQ+PHRkIHN0 tQkoREciZUDvkS0sGUWe G2t7VpJjFsB1TLpl O7IiRVLvrelhVb08sU8c PfTdQeE4ZCqtJ6VzpdQ9 YKTffWYmSAigGAI5S10u w9T1ZTJsQXEkMJH7 aNW4iY2xqHzgcojwiFHl dDsgdmVydGljYWwtYWxp V951SKEqeSniFeO4LMfm DXPeTT17PS02gEQi u0K8zJE1Z1UtRWFqilem vhloyHW1ZPXmXWDlcR99 qWTcGPyrOl4ly2L3n524 CUSaVCJksI82Kq7v sNskMJMzaOPKgZ5zuejw s6xqbvbhXpAnVCOqTHv5 TCk7RUYkjZxuIoNnCZU4 JwU9TRD0rFFkrA3u rLshcsmtgP5aBzw+RmVt TAmqWX96MX22iNSah6B5 qRW5A0QsUWZuyvcenzfz lZQ8MYIiULArbE42 bADzEFutJd2af0X6z100 AEJcIQZbrV15Xu9dgTod IRTghRWZpG6cxcoyj7lb cjogIzAwMDAwMDt0 XIy3XBNfrKekAaLiKTP1 KfD6VLJ8tEAfkC5gbYto npitqS7yPaj+FP3qsypn orG6AG03XK68U5Re PjwvdGFibGU+PHRhYmxl IHdpZHRoPScxMDAlJyBz pTerLP6iJy5nJFKbCKKv hUclzKLpLnGpf0wz ETIeOGhmCM7buDzxQ4Iv mJY4MKCja2c4Fa00Z55d O3IrnQH+XVMcuKO3wLG8 wZ0fRiCfAtR9ANoj D481QjVvoDWeMncbt7fd j9wyaBt6JsOrHECdciSi aPfuFXJ5f6PjUs44N56m IHdpZHRoPSIyMCUi NQDnvVmfxn3doW6uQk9+ OWGtwJR8lET8lF8uXoLw EqO6NWifA868IcXgoVGi VbtiK49sE4CvlYL+ FUKhMan3MPTgkDleXW1z cGTlTCwgKo7nHOV2TpSd MrWxGHxgJ0MbTCYexgrx sjtxsYS1MJAzZFQk sZ26Pz3ftHfiOq9ePTLb DKU2HOBrvJPbV3LwmI7f UrGkPFHvNCBtL8RofABx RFitT409UOaqWrX1 LDApflTcP0ZgRNEbtGsj ImY6p4S9Ce3LhFofrUAi JJ8qEdOwXNt8H3GkUij2 MFRbaIrbGI0ckKUx ASnaLj8zyNweiBsnCI9u UAYmdvcwf753AmDmh7yd WQCmtRKwZZghMRX9P65d r9N6DDEeEZFeFYR1 lIF1gD1cxXufyxbemMRa dDsgdmVydGljYWwtYWxp Z600ZNZxfKgyGvZAGhi5 U5YoPeh4HZUinFde PF3bmYIvYIkjMw5taObs cAgmPL9jBXUhximyh144 IjRtd9xzBYYwiJAbOYtu MTG5B40ql5Y6BJQs JOEnJVJ9eKF7oW4raFqm bjogbGVmdDsgdmVydGlj UIosBWllV460QLIylYlq Gq8PSkd1V1PrDzm7 UJWztZryXK2kuGCpVCuf Ra8frAljfByyVA6cJVYq mtpfj767HeKvb7hsGMYu bGUeUAfhRSZ0G45x m0Q8ROTbGQChXKM8oRY0 mA7qlVtweybyhXZvvRtk nzLliIjsEJpbREcqF452 IHRvcDsnPlBheWVy OjwvdGQ+DY03bi68D8Zl CapyDyq2ZPAtLWZ3zUG3 aA7nPIVkJUrzr9O1fJV6 L8BnfxRikm1xs9gd YXBz (more content not included)... Normal [facility] Auto Diffon 02-13-2022 Basophils/100 WBC (Bld) 0.9 % Normal 0.0-2.0 [facility] Comment on above: Order Comment: Order Added by Discern Expert. Performed By: #### 2 765351, 0039272, 35762613, 3824675, 15640582 ####[address] [address] Basophils/Leukocytes Auto (Bld) [Pure # fraction] 0.1 E9/L Normal 0.0-0.2 [facility] Comment on above: Order Comment: Order Added by Discern Expert. Performed By: #### 2 593377, 7263048, 86900750, 5682116, 08587199 ####[address] [address] Eosinophils/100 WBC (Bld) 0.6 % Normal 0.0-8.0 [facility] Comment on above: Order Comment: Order Added by Discern Expert. Performed By: #### 2 900764, 9238757, 80873887, 9841980, 53892344 ####[address] [place] [address] Eosinophils/Leukocyte s Auto (Bld) [Pure # fraction] 0.0 E9/L Normal 0.0-0.5 [facility] Comment on above: Order Comment: Order Added by Discern Expert. Performed By: #### 2 361400, 4840431, 24989902, 1371056, 75900375 ####[address] [place] [address] Lymphocytes/100 WBC (Bld) 46.4 % Normal 14.0-50.0 [facility] Comment on above: Order Comment: Order Added by Discern Expert. Performed By: #### 2 470817, 1539953, 91260417, 3913693, 04434408 ####[address] [address] Lymphocytes/Leukocyte s Auto (Bld) [Pure # fraction] 3.1 E9/L Normal 1.0-4.0 [facility] Comment on above: Order Comment: Order Added by Discern Expert. Performed By: #### 2 169645, 9445748, 87021510, 5915627, 42637006 ####[facility] [address] [place] [address] Monocytes/100 WBC (Bld) 8.2 % Normal 4.0-14.0 [facility] Comment on above: Order Comment: Order Added by Discern Expert. Performed By: #### 2 617290, 3348816, 44126559, 5851641, 34134638 ####[address] [place] [address] Monocytes/Leukocytes Auto (Bld) [Pure # fraction] 0.6 E9/L Normal 0.2-1.0 [facility] Comment on above: Order Comment: Order Added by Discern Expert. Performed By: #### 2 563055, 4023860, 69491984, 8055411, 50455009 ####[facility] [address] [place] [address] Neutrophils/100 WBC (Bld) 43.9 % Normal 36.0-75.0 [facility] Comment on above: Order Comment: Order Added by Discern Expert. Performed By: #### 2 059898, 1215842, 09151646, 8841030, 24784486 ####[address] [place] [address] Neutrophils/Leukocyte s Auto (Bld) [Pure # fraction] 3.0 E9/L Normal 2.0-7.5 [facility] Comment on above: Order Comment: Order Added by Discern Expert. Performed By: #### 2 236336, 0677150, 58112743, 1049227, 90024062 ####[facility] [address] [place] [address] BB Draw & Holdon 02-13-2022 BB D&H Sample drawn for Blood Ba Normal [facility] Comment on above: Performed By: #### 2 361020, 8387118, 48330290, 9890899, 58389886 ####[address] [address] CBC w/ Auto Diffon 2 Erythrocyte distribution width (RBC) [Ratio] 13.3 % Normal 10.9-14.2 [facility] Comment on above: Performed By: #### 2 059804, 5088741, 37041035, 9138866, 80187946 ####[address] [address] Hematocrit (Bld) [Volume fraction] 34.1 % Normal 34.0-46.0 [facility] Comment on above: Performed By: #### 2 204384, 3559756, 59968131, 5216268, 89067203 ####[address] [address] Hemoglobin (Bld) [Mass/Vol] 11.7 g/dL Low 12.0-16.0 [facility] Comment on above: Performed By: #### 2 045028, 4699372, 19758291, 7362969, 28337997 ####[address] [address] MCH (RBC) [Entitic mass] 29.9 pg Normal 27.0-34.0 [facility] Comment on above: Performed By: #### 2 518812, 1177033, 14523157, 4091257, 54017041 ####[address] [address] MCHC (RBC) [Mass/Vol] 34.4 g/dL Normal 31.4-36.0 [facility] Comment on above: Performed By: #### 2 857255, 3957455, 27504007, 1015732, 30278301 ####[address] [address] MCV (RBC) [Entitic vol] 86.8 fL Normal 80.0-100.0 [facility] Comment on above: Performed By: #### 2 274754, 2950627, 42033881, 7454386, 94328919 ####[facility] [address] [place] [address] Platelet mean volume (Bld) [Entitic vol] 7.9 fL Normal 6.4-10.8 [facility] Comment on above: Performed By: #### 2 591833, 3842178, 21517594, 9897903, 61982996 ####[address] [place] [address] Platelets (Bld) [#/Vol] 329.0 E9/L Normal 150.0-500.0 [facility] Comment on above: Performed By: #### 2 678799, 6233255, 34313678, 8735302, 62922585 ####[address] [address] RBC (Bld) [#/Vol] 3.9 E12/L Low 4.3-5.9 [facility] Comment on above: Performed By: #### 2 792653, 3466955, 08587265, 8714938, 31548233 ####[address] [address] WBC corrected for nucl RBC Auto (Bld) [#/Vol] 6.7 E9/L Normal 4.0-11.0 [facility] Comment on above: Performed By: #### 2 710090, 2941554, 26953781, 7920331, 84583610 ####[address] [address] CHEMISTRYOrdered By: SYSTEM SYSTEM on 02-13-2022 Albumin [...] rate/Area] mL/min/1.73 m2 Normal >=59mL/min/1 .73 m2 [facility] GFR/1.73 sq M.predicted among non-blacks MDRD (S/P/Bld) [Vol rate/Area] mL/min/1.73 m2 Normal >=59mL/min/1 .73 m2 [facility] Globulin (S) [Mass/Vol] 3.2 g/dL [...] High 10 - 20 [facility] Remisol CMPon 09-02-2022 Albumin [Mass/Vol] 4.3 g/dL Normal 3.3-5.0 [facility] Comment on above: Performed By: #### 2 288938, 1343342, 89366690, 7828322, 53166445 ####[facility] [address] [place] [address] Albumin/Globulin (S) [Mass conc ratio] 1.3 Normal 1.1-2.2 [facility] Comment on above: Performed By: #### 2 212367, 9445681, 44898886, 9652014, 26554402 ####[facility] [address] [place] [address] ALP [Catalytic activity/Vol] 55 Int._Unit/L Normal 21-98 [facility] Comment on above: Performed By: #### 2 323660, 6502300, 49912944, 9905256, 30969349 ####[facility] [address] [place] [address] ALT No additional P-5'-P [Catalytic activity/Vol] 12 Int._Unit/L Normal 6-46 [facility] Comment on above: Performed By: #### 2 257010, 5862328, 12882012, 5494524, 76437811 ####[facility] [address] [place] [address] AST [Catalytic activity/Vol] 15 Int._Unit/L Normal 5-43 [facility] Comment on above: Performed By: #### 2 459256, 7631759, 73797320, 3025771, 66959768 ####[facility] [address] [place] [address] Bilirubin [Mass/Vol] 0.4 mg/dL Normal 0.0-1.1 [facility] Comment on above: Performed By: #### 2 745450, 3031785, 54114982, 1943672, 20366041 ####[facility] [address] [place] [address] Creatinine [Mass/Vol] 0.4 mg/dL Low 0.5-1.3 [facility] Comment on above: Performed By: #### 2 886313, 9440369, 86013771, 2044336, 60065168 ####[facility] [address] [place] [address] Globulin (S) [Mass/Vol] 3.2 g/dL Normal 1.4-4.0 [facility] Comment on above: Performed By: #### 2 179441, 3474723, 43496966, 3956761, 86377396 ####[facility] [address] [place] [address] Protein [Mass/Vol] 7.5 g/dL Normal 6.0-7.8 [facility] Comment on above: Performed By: #### 2 987301, 4336252, 80696942, 1389035, 56478230 ####[facility] [address] [place] [address] Urea nitrogen [Mass/Vol] 14 mg/dL Normal 5-21 [facility] Comment on above: Performed By: #### 2 084539, 8660038, 28493748, 1519282, 26177714 ####[facility] [address] [place] [address] Urea nitrogen/Creatinine [Mass ratio] 35 No Units High 10-20 [facility] Comment on above: Performed By: #### 2 145041, 6751097, 06025262, 5246720, 31575783 ####[facility] [address] [place] [address] Anion gap [Moles/Vol] 10 mmol/L Normal 6-16 [facility] Comment on above: Performed By: #### 2 690547, 3408538, 10976397, 9192141, 71383509 ####[facility] [address] [place] [address] Calcium [Mass/Vol] 9.2 mg/dL Normal 8.9-11.1 [facility] Comment on above: Performed By: #### 2 189277, 8776799, 86860712, 9686220, 97370544 ####[facility] [address] [place] [address] Chloride [Moles/Vol] 107 mmol/L Normal 101-111 [facility] Comment on above: Performed By: #### 2 567906, 2134901, 51152987, 1639572, 79636261 ####[facility] [address] [place] [address] CO2 [Moles/Vol] 23 mmol/L Normal 21-31 [facility] Comment on above: Performed By: #### 2 533642, 9582836, 21941033, 1351393, 50024723 ####[facility] [address] [place] [address] Glucose [Mass/Vol] 87 mg/dL Normal 55-199 [facility] Comment on above: Result Comment: If t his glucose result represents a fasting glucose, interpretation should refer to the following reference range: 55-99 mg/dL Performed By: #### 2 781015, 8523961, 18301819, 8945137, 71042658 ####[facility] [address] [facility] [place] [address] Potassium [Moles/Vol] 3.8 mmol/L Normal 3.5-5.3 [facility] Comment on above: Performed By: #### 2 514471, 8982722, 13402567, 5056526, 92515886 ####[facility] [address] [place] [address] Sodium [Moles/Vol] 136 mmol/L Normal 135-145 [facility] Comment on above: Performed By: #### 2 339427, 8486085, 33912119, 7741423, 32530389 ####[facility] [address] [place] [address] Consent for Treatmenton Consent for Treatment [id number] #1.00CD:127 Normal [facility] Discharge Instructionson Discharge Instructions [id number]# 1.00CD:127 Normal [facility] ED Clinical Summaryon 2021 ED Clinical Summary [address] [address] ED Clinical Summary Person Information Name: MARIBEL VELEZ/New_yTrell Age: 21 Years : 2000 Sex: Female Language: Tanzanian PCP: CAITIE MARSHALL CNP Marital Status: Single [...] 02/13/2022 07:28:36 02/13/2022 07:28:36 ADDRESS: [address] [facility] [id number] PHYS DOC NOTES: Addendum by Kevin Santoro DO on February 13, 2022 07:22:06 EDT MEDICAL INFORMATION: Prescriptions Given: New Medications [id number], [address], [place] [id number], [phone] pramoxine topical (ProctoFoam 1% Foam) apply By rectum 2 times a day for 7 Days. Refills: 0. Medications to Continue with No Changes Other Medications ethinyl estradiol-norgestima te (Sprintec oral tablet) Ib By Mouth every day. ibuprofen (ibuprofen 600 mg Tab) 1 Tablets By Mouth every 6 hours as needed as needed for pain. PATIENT EDUCATION INFORMATION: Instructions: Rectal Bleeding, Dcmu-zo-Skar; Hemorrhoids, Twyz-es-Qdhd Follow up: With: Address: When: [facility], [address], [place] [address] Business (1) In 3 days 02/16/2022 With: Address: When: CAITIE MARSHALL In 3 days DIAGNOSIS: Acute hemorrhoid Normal [facility] ED Note-Physicianon 02-14-20 ED Note-Physician Basic [...] change or worsen. Diagnosis: Rectal bleeding Normal [facility] Comment on above: Result Comment: Bernie shannon Signed By: Kevin Santoro DO\clovis\Date and Time Signed: 02/13/22 07:23 EDT ED [...] Reviewed: 07/26/2016 Elsevier Patient Education ? 2019 [employer] Hemorrhoids Hemorrhoids are swollen veins that [...] times a day. General instructions ? Take kbfx-ycs-pufhgok and prescription medicines only (more content not included)... Normal [facility] ED Patient Summaryon 022 ED Patient Summary [place] [id number] Patient Discharge Instructions Person Information Name: MARIBEL VELEZ Age: 21 Years Arrival Date: 02/13/2022 06:16:54 Discharge Diagnosis: Acute hemorrhoid Primary Care Physician: CAITIE MARSHALL CNP Provider Information Primary Provider: Ana Braxton DO Advanced Electric Car Operator:None The exam and treatment you received in the Emergency Department were for an urgent problem and are not intended as complete care. It is important that you follow up with a doctor, nurse practitioner, or physician?s content assistant for ongoing care. If your symptoms become worse or you do not improve as expected and you are unable to reach your usual health care provider, you should return to the Emergency Department. We are available 24 hours a day. MARIBEL VELEZ has been given the following list of patient education materials, prescriptions and follow-up instructions: Follow-up Instructions: With: Address: When: [facility], [address] [place] [address] Business (1) In 3 days 02/16/2022 With: Address: When: CAITIEKENY MARSHALL In 3 days In the event that this physician does not participate in your insurance network, please consult with your insurance company to find a nearby participating provider. Patient Education Materials: Rectal Bleeding, Fwtz-za-Tyct; Hemorrhoids, Kmee-yd-Pbly A MESSAGE TO ALL PATIENTS REGARDING OPIOIDS PRESCRIPTION OPIOIDS: WHAT YOU NEED TO KNOW Prescription opioids can be used to help relieve wpmdpkni-vk-kanxnz pain and are often prescribed following a [...] care professi (more content not included)... Normal [facility] HEMATOLOGYOrdered By: SYSTEM SYSTEM on 02-13-2022 Basophils/100 WBC (Bld) 0.9 % Normal 0.0 - 2.0 % FT HemeAutoSS Basophils/Leukocytes Auto (Bld) [Pure # fraction] [...] MDRD (S/P/Bld) [Vol rate/Area] mL/min/{1.73_m2} Normal >=59 [facility] Comment on above: Order Comment: Order added by Discern Expert. Result Comment: eGFR is race adjusted. AA=. Performed By: #### 2 [id number] ####[place] [id number] [place] [address] GFR/1.73 sq M.predicted among non-blacks MDRD (S/P/Bld) [Vol rate/Area] mL/min/{1.73_m2} Normal >=59 [facility] Comment on above: Order Comment: Order added by Discern Expert. Result Comment: Operational Meteorologist linwood kidney disease could be indicated at eGFR's of less than 60 mL/min/1.73m2. Kidney failure is indicated at less than 15 mL/min/1.73m2. Performed By: #### 2 [id number], [id number] ####[facility] [address] [place] [address] Coding Summary.on 02-06-2022 Coding Summary. [id number] Gh0bWw+PGhlYWQ+PE1FV UMfA17zuJBjgK6JE6eYY Z5AMHBQXUOQUA3BAH7xr BM2JRujW4OmnoJl BvexeRQxIR41IHf9VLF0 kCqbXRltsR5deOHpQ6t9 XzKjPW06fO54SFdgMOTx LhT7VtAiqmnvzRSb J2hjDnLysNYuJuq+PHRh YmxlIHdpZHRoPScxMDAl EkJruIizET8cTn8fVKLq LWNvbGxhcHNlOiBj w5rnPWKkDPotEY8spFvy D0FzxSQ0ZUEsw1u1Pf96 dHI+ENOeDIZ8lSxnMWxf j941BeBle1krUDX8 nWHcFKwuIKO9W67ay8E8 MCQuVLNdESX7hXG7mJ5r fYysjxjzL1DwoWDyOeV8 LJB7yBYxkI7ckNrs rbrjqS7uIzc+T51OMJ5V GXAZES3MAbo3W5BmAuji dHI+YC36ZSVcOM33kKTt wEIwf0tevUc9GaOv WWFzNWA7xNxoQOetd2Fs KSFwB50tyHVvw0H6YLAf aWbtrOIaJdJgvVY8cY6c HJpcqughy7ydnkud Mdcrz2epah34lV82N11s CHvgKWEqAZH2DPWxINNw zUjqij1efR2jDb8+IDxj a4pdy5azfLz5VqUf AGTvmfHzpFriOXD9j5Ho Vb79S6EepYlni1YkCbh4 su13eDIxn5K5fQO6SJez XCUbeM2zGZbhUzM2 TGXhFqTycW46mAOfARdu Cf5ooFstwXiaAJ2xRTHe pehfECMiaC8oZRDwjHZq vJvuRF0fWNXceoue c993OwCtORQ3RFJbuIDv L7FoqS0eZaQjABThYWXx L8AaoTMoCCdkM003KFqq CvX0SCOrgsPtL6Tb YZUgtXslQbR1j3Q5Wx9R w0ImemojIDZ8HPyaAWN5 DvW4OfPpJxF3V4MjIhf4 LYVaaAkmKD5mA0Pg KEEffgukybbjeCG0IOOf NPQnpV25qFCnJRkrRs4z w7A8t551EOJrFMKodF81 Pe7jeLncSVRlvJKG cS6zcyjtt8mbykmoOgIw UAJxVUk5ZXf4LIVonSqz WhIeOMK5VsD6RPM3eTTp qI5nlPbblmtgkN7t Oyc+O92jmI9wCLX5NSJ6 uculLIEzlcFsGF25QI51 J3EiPduvmGAcsFM+PGRp vaFzmJmiDQ0iZbDz m3oxr2UkSBhbD5PjGUUa OHqzQno5ECZvAMP6jKL3 wZ0oLKTeAThvz7A8nSB0 Z8CwhjGwvk5nn6xz OLDpQTdzP75dmUTqt1H2 TZItlDD0OVUvrRtsEbEo oK99Nfy+PWTdfMngu9Ct Pthck2chr5looSj7 IjMwJSIgdmFsaWduPSJ0 p1ZaGs92G58lCNdjKGFr WABkOKOfFWOlyZczqg2a eM7rWu6+PGNvbCB3 kKV1lI1mWABqMdT2RQlw Y129AfMdmXQbUnuqy9vf e7pmjFy9KdQyJGYeifTt vWjhQGE9q6EgDt99 C09eBUkeRZGnLHIqAPYa QXIfsOeidc5uyZ8cTl3+ EB6yq1wozs55wS74iJZ+ ZPRzDAP1pJxlDIfq KJXbjL3oSWqbMgU8RNTf YvQoqQ10bRYmKCnpSl0n eGxgcEffHA1sCATyptsy z870VcWsw7dcDOUt wQZeUSuuAUT4J60wr1O2 QDUsRIEaCKG3fJX2sN2q bGlnbjogbGVmdDsgdmVy kPuhNPbxRCavC886 IHRvcDsnPlBhdGllbnQg IsNmNUm8J4NoHtl8XWGj dJapTK3dfNPkELanSt0c hSkcsNemXX3wPUOy yzaxc645AqRsr3pzLNEl dHGlEZqcBRA5S79yn1P1 MVKnHQEtYVJ0wLM1tO8w bGlnbjogbGVmdDsg aaVkpBdgQSguIUjhM822 IHRvcDsnPkJpcnRoIERh lFT4GZ20DV01wRIwu9F1 dEE7K0GaDTRncwss mzvotFY4QIOsXJIvaR10 El4lcTxuCi2aKBLxDSX8 IAFdnKFmU2RqnT1qPyPm DQIvFNJgA1HaqIJl CZuaK481BEhhSfT6HWLv hmKwA2PePEDvoWqkIuC6 q8J1Hf4DY7M3PX73BJ96 dATok4W9jPG5O4Wj GUMqdmbfltyybOD8CTUq CHXfnS57Vz2cuYmqVk9x GPJnAGI5QPWyvFHzE6Lf bG7qBxQzKDIrLPWy N5RidKWhCEsnB024DZfs SdY7NSRzyxMaM2HuAKKe qFblUeT6v1N9Gk4FMQx6 FS23WF81xFNry0O1 uWL8B3BnXRVhfdewbzaw hSM1QKWaUZWmiG63Ey0l yJcvRi7uLTAsEAE4NWHx tHWmC9PjjU6oZxRv IWEqUPKbR5GqiPBjMGgf J476YZzoMsS7CTLqmjVc Q0SwTHRsfTfwXvI8q2J2 Bp9VJWFoUZ77YVH0 iXA5ZK45WJ75M8UeMtwx dGFibGU+PHRhYmxlIHdp ZHRoPScxMDAlJyBzdHls VZ2vLs0eKFZrCAUy mXaxtNMbVcTxx6kmQQZc UZczOZ2kgSkjA1TrhKQ2 PYOsy0w9Ly33H44rS2Cq dXA+UAHaqTA3pLF0 qX0eCdApUeF3TUlxJ560 SlTrxHTpUjihr8gyz4kj mNp1LnS2FNVlpmXlsYcu RVM3b1NjEr43A90f IHdpZHRoPSIxNSUiIHZh gEccjy1keN5eBe5+PGNv bNM3vAO7hM2uXvWjQrA1 NHzdY134YtNttMJv Dnacj4hsm9dudHl1CwIs XLWypyYuhKkpZWW1n7Ev Ib74A9AcbBika6NcKrb1 aq42yRYab8G9fOW0 D5GxZGYqfytgkQZlfYim LT8tRBCeedeyAPInrD8e VOYbK8l1MlHrLhC1HBoy Y3WfsdO8NVWvxPCb CSeoYJR8P31ke1C5MGZs MDJeUNG5hYO4pK0nkBil bjogbGVmdDsgdmVydGlj EFzxXAvaM258SMAl gZnwVMTrkA6fWLAkySGf bEhrXL0mJNBhfysxLrOS RNrEUQyeA1XXOFkBPhxW VV98ST52hMLto3F0 gTD4T7PmNRAdgilykrra hTG4YPPaFPVexC88iKFr ZIneRx8yz3S3k875LQJz FPRecA28Ev2zoSlb YBOkyLJVeK8xkecnl5kv lemjBsNlFQJbYHm9TOj5 GBOalBdvXkZbXDH7RmN5 PCP0mVRvaJ9atXnh gukhmY6uTjl+MDIvMTkv MjAwMzwvdGQ+PHRkIHN0 rMvpVFsqDLCosZ0lYMQa D4b0NoNfGuP4QSyj I1VbHJPgxmjeJr71xS5m EjXpFhZ2VNdcZ3HvdgE7 CAPvyAHhQOjaPPQ5V54x m9D5VVTgEQTiKIV5 uWA1fV6qmDxigcmvoKEd dDsgdmVydGljYWwtYWxp L569RKMbfLbqQnP3DRyz NIOiKH97CN93xBDj j7L1bON9Q1KmGQDcupcy ghjnvVO9TDFnLFKnmA28 sHHtVUxfBt2bf1D0l902 APLjQOShdC46Rc0b eSmgWGDprWBOdA4ncyzl s7syzrqbOmZsZBYiSUo8 AMa9ENGgbYrgUdRxMQR0 UoK5YMT7sDCyvX5x hAosjsfwtA1bRin+RmVt EWkaRE77ID50qSQbe7H0 uWY6J9LoVRVonjctoovc iAA2BRWjEROuxQ42 hVGiHRibAy8lz4H0a201 VKHdZTOpnF47Uz3odGhj DNVikGEXwP1dnenuw8sv cjogIzAwMDAwMDt0 LZc9NAVpmKtuJtZzXYG5 MuB1LZT6gWYjtD7ogOtf wucvtK9kYag+R4X1yWR8 aWVudDwvdGQ+PC90 av80N7PlWggrYic0SYPj XEG7sCQ2oL3xLJAiPSsq c5P2kEB3G1BmkeHlqd5c p3pgGJNxXIwnD00h eNGpm3A6FLTbeCN0GBMx hIbpZcZzcK49Bik+PGNv tJmei4PjCzshq7auk7ih aXh2JkDoCOQuddBr yQqjQIZ0j1UrXv24J84j IHdpZHRoPSIzMCUiIHZh lPwczi0roE9wJi2+PGNv aRQ6sFH4rE9kHiCn WxS4CKjjS839LyGxtSPb Fsafp6qtv8xpePn7SuAa YPFkzrLheFigFOI4p3Kj Ud14F4VrpCnih5Tz Fir1fp95zGKrw7G8mQY7 T1KwLTPeamiziLLqeBof VO8kKBKetwtdMAQhpC1u SPZhC3q2UvTgFkR7 JBekM2LtcoC2BXBsoYEl IZUmkJLKlE4xfldis9ef fuiyXwQmXZHoDXc4WBl0 LWFsaWduOiBsZWZ0 YmF9DXS3jRWbkT0hmAfz mgplrP5iXwq+UEn0e3js jSMmHR9qvKM3AT83LP97 pARbj2U0pPR4I7Kz BULdlfrjekjqqBJ1MOAd HSFpmO99Ku7wfIapBk9w GDWoYLH9FMJaxGUfT3Hu aX5bDyEkCAZiYKBp U3OvjLJiNEyxP800MCkz DcN4OQFdqlFcI0IwRXUt mLaeFfV7i4B9Ci4FNZ93 CV31KB96yUHbr8P8 yFL9G7BvNMQbshaqbnyh tDC4VLVtRLImjL12Yw7e tWrlWc5yCCZvFIU8PQNb pSLzS1CxpD2aIuSy ILPtSTGnI4BqdYLnYJmd Z495JSweExV3EUFgpmOg U6PlEOTauPxeAxG7r4K2 Lc6EPu19WP51ND95 oSShk2N6bIG3V5LsNSSs lsrwexghsCL8RZSbNLWn vY66Ch1etMdjSk2dWYKu AHY8YPQezUGvN0Km nD2sDsKuHYHzMEIfF5Cb vZAoGZfvJ716HJjvKtJ8 HOWstqOzV5YaUOWjoQea CqI0e8J9Tp6LOGit mmu2Q1FgEtsptUX+PC90 EFGgFC14iPDnnWLgq8kq wUb8VxNjGXHgIOX9wOuj LLbge7CjGQNgY78h bGFw (more content not included)... Normal [facility] Consent for Treatmenton 01-13 Consent for Treatment [id number] 20 [id number] #1.00CD:127 Normal [facility] Physician Orderon 02-03-2022 Physician Order [id number] #1.00CD:127 Normal [facility] XR Shoulder Complete Righton 02-03-2022 XR [...] M.D. Transcribed by: CHRIS Technologist: JULITO Hanson [facility] CBC AUTO DIFFon 01-15-2022 BASO # 0.0 103/ul Normal 0.0-0.1 [facility] Comment on above: Performed By: #### C BC #### [facility] [address] [place] [address] Dr. Venancio Soriano Basophils/100 WBC (Bld) 0.6 % Normal 0.2-2.0 [facility] Comment on above: Performed By: #### C BC #### [facility] [address] [place] [address] Dr. Venancio Soriano EO # 0.1 103/ul Normal 0.0-0.7 [facility] Comment on above: Performed By: #### C BC #### [facility] [address] [place] [address] Dr. Venancio Soriano Eosinophils/100 WBC (Bld) 1.3 % Normal 0.9-7.0 [facility] Comment on above: Performed By: #### C BC #### [facility] [address] [place] [address] Dr. Venancio Soriano Erythrocyte distribution width (RBC) [Ratio] 12.8 % Normal 11.0-15.0 [facility] Comment on above: Performed By: #### C BC #### [facility] [address] [place] [address] Dr. Venancio Soriano Hematocrit (Bld) [Volume fraction] 36.5 % Normal 36.0-48.0 [facility] Comment on above: Performed By: #### C BC #### [facility] [address] [place] [address] Dr. Venancio Soriano Hemoglobin (Bld) [Mass/Vol] 12.2 g/dL Normal 12.0-16.0 [facility] Comment on above: Performed By: #### C BC #### [facility] [address] [place] [address] Dr. Venancio Soriano IG # 0.01 10e3/ul Normal 0.00-0.03 [facility] Comment on above: Performed By: #### C BC #### [facility] [address] [place] [address] Dr. Venancio Soriano IG % 0.2 % Normal 0.0-0.5 [facility] Comment on above: Performed By: #### C BC #### [facility] [address] [place] [address] Dr. Venancio Soriano LYMPH # 2.7 103/ul Normal 1.2-3.8 [facility] Comment on above: Performed By: #### C BC #### [facility] [address] [place] [address] Dr. Venancio Soriano Lymphocytes/100 WBC (Bld) 42.9 % Normal 20.5-60.0 [facility] Comment on above: Performed By: #### C BC #### [facility] [address] [place] [address] Dr. Venancio Soriano MANUAL DIFF REQ NO Normal [facility] Comment on above: Performed By: #### C BC #### [facility] [address] [place] [address] Dr. Venancio Soriano MCH (RBC) [Entitic mass] 29.4 pg Normal 26.7-34.0 [facility] Comment on above: Performed By: #### C BC #### [facility] [address] [place] [address] Dr. Venancio Soriano MCHC (RBC) [Mass/Vol] 33.4 g/dL Normal 29.9-35.2 [facility] Comment on above: Performed By: #### C BC #### [facility] [address] [place] [address] Dr. Venancio Soriano MCV (RBC) [Entitic vol] 88.0 fL Normal 81.0-99.0 [facility] Comment on above: Performed By: #### C BC #### [facility] [address] [place] [address] Dr. Venancio Soriano MONO # 0.5 103/ul Normal 0.3-0.8 [facility] Comment on above: Performed By: #### C BC #### [facility] [address] [place] [address] Dr. Venancio Soriano Monocytes/100 WBC (Bld) 7.2 % Normal 1.7-12.0 [facility] Comment on above: Performed By: #### C BC #### [facility] [address] [place] [address] Dr. Venancio Soriano NEUT # 3.0 103/ul Normal 1.4-6.5 [facility] Comment on above: Performed By: #### C BC #### [facility] [address] [place] [address] Dr. Venancio oSriano Neutrophils/100 WBC (Bld) 47.8 % Normal 43.0-75.0 [facility] Comment on above: Performed By: #### C BC #### [facility] [address] [place] [address] Dr. Venancio Soriano Platelet mean volume (Bld) [Entitic vol] 9.5 fL Normal 9.5-13.5 [facility] Comment on above: Performed By: #### C BC #### [facility] [address] [place] [address] Dr. Venancio Soriano PLT 323 103/ul Normal 150-450 [facility] Comment on above: Performed By: #### C BC #### [facility] [address] [place] [address] Dr. Venancio Soriano RBC 4.15 106/ul Critically low 4.20-5.40 [facility] Comment on above: Performed By: #### C BC #### [facility] [address] [place] [address] Dr. Venancio Soriano WBC 6.2 103/ul Normal 4.0-11.0 [facility] Comment on above: Performed By: #### C BC #### [facility] [address] [place] [address] Dr. Venancio Soriano PROF 14(COMP METB)on 022 Albumin [Mass/Vol] 4.0 g/dL Normal 3.4-5.0 [facility] Comment on above: Performed By: #### C MP #### [facility] [address] [place] [address] Dr. Venancio Soriano Albumin/Globulin [Mass ratio] 1.2 {ratio} Normal [facility] Comment on above: Performed By: #### C MP #### [facility] [address] [place] [address] Dr. Venancio Soriano ALP [Catalytic activity/Vol] 67 U/L Normal 46-116 [facility] Comment on above: Performed By: #### C MP #### [facility] [address] [place] [address] Dr. Venancio Soriano ALT [Catalytic activity/Vol] 16 U/L Normal 14-59 [facility] Comment on above: Performed By: #### C MP #### [facility] [address] [place] [address] Dr. Venancio Soriano Anion gap [Moles/Vol] 11.8 mmol/L Normal [facility] Comment on above: Performed By: #### C MP #### [facility] [address] [place] [address] Dr. Venancio Soriano AST [Catalytic activity/Vol] 9 U/L Critically low 15-37 [facility] Comment on above: Performed By: #### C MP #### [facility] [address] [place] [address] Dr. Venancio Soriano Bilirubin [Mass/Vol] 0.3 mg/dL Normal 0.2-1.0 [facility] Comment on above: Performed By: #### C MP #### [facility] [address] [place] [address] Dr. Venancio Soriano Calcium [Mass/Vol] 8.6 mg/dL Normal 8.5-10.1 [facility] Comment on above: Performed By: #### C MP #### [facility] [address] [place] [address] Dr. Venancio Soriano Chloride [Moles/Vol] 106 mmol/L Normal 98-107 [facility] Comment on above: Performed By: #### C MP #### [facility] [address] [address] [address] Venancio Soriano CO2 [Moles/Vol] 24.9 mmol/L Normal 21.0-32.0 [facility] Comment on above: Performed By: #### C MP #### [facility] [address] [address] [address] Venancio Soriano Creatinine [Mass/Vol] 0.58 mg/dL Normal 0.55-1.02 [facility] Comment on above: Performed By: #### C MP #### [facility] [address] [place] [address] Dr. Venancio Soriano EGFR-AF DOMINICAN >60 Normal >=60 [facility] Comment on above: Performed By: #### C MP #### [facility] [address] [place] [address] Dr. Venancio Soriano EGFR-NON AF DOMINICAN >60 Normal >=60 [facility] Comment on above: Performed By: #### C MP #### [facility] [address] [address] [address] Venancio Soriano Globulin (S) [Mass/Vol] 3.3 g/dL Normal [facility] Comment on above: Performed By: #### C MP #### [facility] [address] [address] [address] Venancio Soriano Glucose [Mass/Vol] 94 mg/dL Normal 74-106 [facility] Comment on above: Performed By: #### C MP #### [facility] [address] [place] [address] Dr. Venancio Soriano Potassium [Moles/Vol] 3.7 mmol/L Normal 3.5-5.1 [facility] Comment on above: Performed By: #### C MP #### [facility] [address] [address] [address] Venancio Soriano Protein [Mass/Vol] 7.3 g/dL Normal 6.4-8.2 [facility] Comment on above: Performed By: #### C MP #### [facility] [address] [place], [place] [address] Dr. Venancio Soriano Sodium [Moles/Vol] 139 mmol/L Normal 136-145 [facility] Comment on above: Performed By: #### C MP #### [facility] [address] [place], [place] [address] Dr. Venancio Soriano Urea nitrogen [Mass/Vol] 9.0 mg/dL Normal 6.4-19.3 [facility] Comment on above: Performed By: #### C MP #### [facility] [address] [place], [place] [address] Dr. Venancio Soriano Urea nitrogen/Creatinine [Mass ratio] 15.5 mg/mg Normal [facility] Comment on above: Performed By: #### C MP #### [facility] [address] [address] [address] Venancio Soriano Discharge Instructionson Discharge Instructions [id number] 3#1.00CD:127 Normal [facility] ED Note-Physicianon 10-23-19 ED Note-Physician Basic [...] Orders: Influenza A&B Ag Rapid COVID Antigen ([facility] Disposition Plan Patient Discharge Condition Stable Discharge Disposition Home Discharge Prescription List Prescriptions No active prescription medications Follow-up With When Contact Information Michelle Mata In 3 days 10/22/2021 EDT Additional Instructions: Patient Education Viral Respiratory Infection, Izxw-Do-Yzbf Attestation This visit was performed by both [...] Diagnostic Results No qualifying data available. Normal [facility] Comment on above: Result Comment: Elec tronically Signed By: Cherry Hazel PA-C\.br\Date and Time Signed: 10/19/21 17:19 EDT\.br\Electronically Co-Signed By: Miko Kaur MD\.br\Date and Time Co-Signed: 10/22/21 10:35 EDT Coding Summary.on 10-20-2021 Coding Summary. CD:[id number] Gh0bWw+PGhlYWQ+PE1FV VUkF76nuSDcnA0QS0mYU B1MWMKUYZLFPE4SPS3pk OC6VOowF8YiznIs TnpvlGMyUV20DJf9MBM7 jKlmWLwdpH8itLAmU6r7 YtIhGP64bM09RKufECAa WhI8KlJqssrejNDm L4zzGxFasFGyKyh+PHRh YmxlIHdpZHRoPScxMDAl DrMvaVoiIL2aWj5tXDCd LWNvbGxhcHNlOiBj z0qoPWDuHHybEV3lcUat V7WbnJJ6WQUoq0v6Wi35 dHI+SKGvYSM3jHwlHIdu t411GkYaj1roIJS6 wUJvLLevNKK1E57gg2V6 DCKrIOWoJMY0rWR1yY0s qXqklsdhS2XgoVLiFuR1 PGH0jTZoiA8zrSqg djuflL5uJbh+Z55YZN4K NMXCJP1FHbs1F6MeNiah dHI+MJ80JPEjEQ93lSLf fUHua0viqEn8VfNj JOFvCVV2mNezBLoxr8Dh BJGkH81qjDHhe7N5QWJr ePlmtXWeSnJlvTH0fF8v GIphqqhcp0jlmian Hkyhi7bxqw05qO56L66a PQafGLEhZDV7BJPpTIPk eJvpwc9ceU0rNu9+IDxj r6qvi8zajWm4WjDe IUXkbrRmsZmdNCJ9z6Qg Rb81A2AeqTibq9TuDux9 xv24eJQnj4L8uGS8YJbs EEVhnO2sUItvReJ3 GYCtNgZioB89dHJxFAdp Ng7ugLvctOkfDQ0cWEUo erkmLJMduB0uUPMsdMOm yQeyGD4zWEFqucsx q537BlDaPUB3PWXbmJOf C7YmlE3aUzXcCYYoBJOi X4JtmRHkHWrmR346ZEau JxC9TRLwyiSrJ5Ez AEKjcDxgOyK9w4D5Nj6R u1UdsbaxQPV3KZuuVPL4 WnJ3OzRpMwS4I2IxNse5 XHNcjHpbVG1qC2Fo WDSmmveghvkpdEC1XEPx XUQtqT45kZAmORwcZc1v v4A6i325BIQmXNCalR47 Ti7mlRrbRHMvzGXH eL5eowmia1jprqfbQxSp GRFkJDk1NYm1IQDkjRaj LmIeSVE3DyV1WNB5kDGh aH6sqPkkoernjA9l Oyc+Y38qjA3qORV0BEP4 ekkxPDHqqbMzHK80VZ03 H1XcLftyqTCrhQV+PGRp arLheLngIV2zIdZu h1zjz5DtHDcjY2XbXMZz UUxoIlg2AUKgRQL5eFX5 hL5vJGCmJNrsi8D0aJF5 Y0JxsbQdbg9pw4zg XRVdXHnmP19jnVZxj2N6 WIDbrFP3XSUjiWfdBjNc vK28Eqy+CTUkkDgfd0Jq Ykfqt0dlg4yykVd4 IjMwJSIgdmFsaWduPSJ0 t1JeXw80Y62mSNwoKIHe NZCmHYSzFSQytFzzlq3a xE4aFv7+PGNvbCB3 iTN1pD6yRXUvWxJ5MXxc M309WtZsoSVpZtfkn4ol h3sdqOr9JnUvGBLxqySa sWhuKJQ3r5PnWh81 N90zMKiiAPHuXZAyAHMu BBMvoWpzhe2rwC9ySe6+ ZF4ox2gpzf73pD65dWA+ LGGrXHC0cCneVRyn QMWuxQ3aTBstCsH2DLIq YrOceV89yNVeBIjbXp9t fPffuAcvQA4xFZEdlymx o271LvKeu3gpWWRg bHDpNAdaEVJ9B05ov1Y9 JZUdSHXzXBJ1eLM6iW7a bGlnbjogbGVmdDsgdmVy cTaqGNnaPYwiQ254 IHRvcDsnPlBhdGllbnQg EoBlNDf9M6ZkOaq3BBNv zZxxUC9zdZUgCIxwLc7k mTqcgJnoWR0eHRJy oniuf095YjAlz6wiCWMu iUSaJOcfLPJ5M92wr9G5 DHWzQJBfUKU2tJZ9iJ9k bGlnbjogbGVmdDsg ltUncDpnPIxcCCyzO756 IHRvcDsnPkJpcnRoIERh oJU5RI10EI51cJPwk4L8 eKS4F6NsHCJudexj fkiewKH6ZXWqIFFvuB80 Rh6qoRlwOa3dNHNoMSO8 SPNcbEXgK1LxsB0nPdPn IYRxOOJaX4BvjOMo MSvmO342VKmtBqF8LSEl rxHyS1UzNUZcsTimDtZ7 g0J4Zu6BR3R1WA54RN40 kDRst3Q5iAJ3Q6Ly VCLirfxjuzjwcZS2PYEj FLIjgT37Ei1vgFlgZt4m FIRyULZ9HNHlbRYwO6Hd fM7gCqXcZDKcBMDa Q1BduAZmTPvxD009UPwe TsH0BFAmiaVrE1ZkXKAt aKvdPzJ3b6V9Rq9REYo0 YJ92LK03lBIyx4K9 sBG4V4JdGIRlxuxnmzah lZE8YWQlYPUsmB78Dx0w hCpyRe2aXNLuBHA5NCGs gDNuJ3AvfG2yGwVk BWCuQFVeP4WydDMxYTot D546NMkxXsK5HJMkfvLh X5OjYMFeqIgdSvU0p0Y1 Ue1FEOTvWF95SPA7 nTZ9CY02BE25E2GvAsvi dGFibGU+PHRhYmxlIHdp ZHRoPScxMDAlJyBzdHls OP7mVf9vCTRuGGWd uPntcUAdQkCjw2weVBJg HDunSV9orRymY4ZrzWI3 PJStf9k2Pf67Q62vW2Lq dXA+QADyzLC5fTH4 xS5fRlXoPmQ5GSfqJ510 WqBwfMVgDxoot6tpx7zs mNi4WsL5EEZdckSwfDix KQQ3q2FyTs17S07d IHdpZHRoPSIxNSUiIHZh pSnsrk0olD3uWw0+PGNv rXW0qMR6dW4hYoCjRyT0 FIrjN561VuRerVJa Ytmdk4gdq2yfoPb2KbKr NBCidvCocZluTOH3h5Tw Zr60K0JmjRiar7VjEcs1 fr65eJUmf3L5lAN9 V7WeFVLlriqapKCynFen IB9pFVRgnffrZKAomQ3z LQNwN3p5AzXoGfE9VAez X3IgvhJ6RMWprGTn GUcjVJD7V88hh5Y7XJPl BLVeZLQ7kYE5pC1kyVry bjogbGVmdDsgdmVydGlj EAcuXHilY325VPRi uTnfLOAeiQ7pCPPfgRLt ePakGE3rDTUleqthEsWJ DZiZMSdgB8YIKTgXJsjQ PF98VU94vINxw4R9 sGQ7V2RwPFUxtzydylza mRE7VAIfGZUtcS77uWDr XVvhWl3sg1K8k237PAPk BFMicV81Ji1nhVlh ROSzbCZCkH0gbstfb3ch jiefJtTwNYRnDVp9FQx8 HAPnuVxvCwNiVQU6SsK9 DOP6rASipC0itHca kpqoxI2iBgh+MDIvMTkv MjAwMzwvdGQ+PHRkIHN0 fOgbGIywSDWnfV4rVSPc C4s0FoWfQbM4UWmg T8VqAZGigjhxOp11iW6r SeCpMwJ3JNvyW1XtuxL1 VINekLKuNEjcBOM5U66u q4G7UMRmVJYaBHR7 uBD2oU2ysJovltzlyLJe dDsgdmVydGljYWwtYWxp G172MDPuuDtjMzS9FIhh AHRiEN48XR86kMKh v7M3zZV7W0JfNTTdyzov mqspvQL2QNKsUTZcmW80 sAKmWHxzRd2gd3E0m397 YPTuDTJgnJ34Lm4a sWyvLTBysRKXfA4msign p0fbfbwtVeXdQHMyONd6 DVb2IACvlGpcPuGkZAW4 HhM4FAX7gYNooH6p sGcyglzwmS6wVkt+RmVt YStdEU25JA10iHJhd4R6 dEI9P0FaXRDqvdkjvfla tZV1DLRmKWZvpT65 bPSsZJjhEf7jg6P5x603 EFBtZIKhfC42Vs0hxZah ZKPxcHQLiO2udfcif1el cjogIzAwMDAwMDt0 EPx3WEWrpKzfLgKaHPR5 QwA4TNE0cUShhP5fnTeo okguoG4vTdg+IC6jxtmm czT7ZF81RD69R8Iz PjwvdGFibGU+PHRhYmxl IHdpZHRoPScxMDAlJyBz jXfzFQ5lIb7tQBBrJWAp gXjurMFzSrRbn5yk HCVtROweKF3tkYruH0Yv nJI9YCDsi4g7Dr58H34s G6HvsLJ+JVWskCZ9mPA5 iN2wLkSySbH9ISdh A935WbImeNHzSgbar1tk j4rzpSs6UeEwVRNnzqOo iOvpUNB9n1VnWh50K60f IHdpZHRoPSIyMCUi FUMvyDvspl8ivU1mJp8+ FGWqaPT8lKL2mU2bTsUv EsM4SCjcI928GiRbwAQd AvteP32rL8WxkWV+ ZHEsUlb8ADZtwPxqFZ2a wRPkDWyaAi9rNHO6OuVw WdSmWZziD4KjTMLremsf fizboEV3GQIuIJHv qT10Oy4pgTqxKs3tYYVz YPE4NFTnaQPiG4WcyO5q KbJkSFUsQFNlH9TgoBXl TLhqR779QSrgDiR5 KJOwjiLmB8TkJARdoDij KoH8e5L3Qa6NwDntjBSx BW0pTaAgPEg4W6SgNbm4 SIUasLryYX0ghVXc AIohZj6bwYswbDxlFI2c VMCuykeoh763DnXyl6jx SHMoaQXfEYhxFWE2Z71v s7R7TAQoQKAwVVS8 xDU0eV0sgYreweburKBa dDsgdmVydGljYWwtYWxp B700WMAogHfwMuKRQye7 E3MdVrl5MLImnXym SO9nwOIqPVveTq4yyWes nRrpTY6zQMAfvddhh612 QmFhx7yzZLGcoXAeFXge PVH9V24fd1Q5DQHl CYXaICZ4hWQ9nM3srAiy bjogbGVmdDsgdmVydGlj PFjmWUapO713GORrzYcb Ud8EOmf0U5KwKbf4 KWHilFykKW5ldTSxHAkl Qc1crUcqaYhuCQ7hTZNi iuleq038YkDbh2prWMBm wLReZVfrBJY9G62e b9B3NKShPYPwZRI2lGR1 pB1ioZipjysgdPOttWxh wjLexJdcKNimAVagP508 IHRvcDsnPlBheWVy OjwvdGQ+EE89km03W2Xc OufrMpy8SLEwAJN6fVX6 hF7iCPFqPQaww4B1wVO3 B8FmedJooe3ca9ly YXBz (more content not included)... Normal [facility] Consent for Treatmenton Consent for Treatment [id number] 20 [id number] #[id number] Normal [facility] ED Clinical Summaryon 2021 ED Clinical Summary [place] [id number] ED Clinical Summary Person Information Name: MARIBEL VELEZ/[facility] Age: 21 Years : 2000 Sex: Female Language: Tanzanian PCP: JOE PEREZ MD Marital Status: Single [...] 10/19/2021 17:27:21 10/19/2021 17:27:21 10/19/2021 17:27:21 ADDRESS: [address] [id number] [facility] DOC NOTES: MEDICAL INFORMATION: Prescriptions Given: Medications to Continue with No Changes Other Medications ethinyl estradiol-norgestima te (Sprintec oral tablet) Ib By Mouth every day. ibuprofen (ibuprofen 600 mg Tab) 1 Tablets By Mouth every 6 hours as needed as needed for pain. PATIENT EDUCATION INFORMATION: Instructions: Viral Respiratory Infection, Jnep-Aj-Qzfl Follow up: With: Address: When: Michelle Mata In 3 days 10/22/2021 DIAGNOSIS: 1:Viral respiratory illness; Other viral agents as the cause of diseases classified elsewhere Normal [facility] ED Patient Education Noteon 10-19-2021 ED [...] home: Managing pain and congestion ? Take quhd-igb-edhdvtw and prescription medicines only as told by [...] and water are not available, use hand certified surgical technician. ? Avoid contact with people who [...] 05/13/2009 Document Revised: 06/08/2019 Document Reviewed: 07/11/2018 [employer] Patient Education ? 2019 [employer]. Normal [facility] ED Patient Summaryon 022 ED Patient Summary [place] [id number] Patient Discharge Instructions Person Information Name: MARIBEL VELEZ Age: 21 Years Arrival Date: 10/19/2021 17:05:16 Discharge Diagnosis: 1:Viral respiratory illness; Other viral agents as the cause of diseases classified elsewhere Primary Care Physician: JOSE G VENCES, JOE Joseph Provider Information Primary Provider: Advanced Electric Car Operator:None The exam and treatment you received in the Emergency Department were for an urgent problem and are not intended as complete care. It is important that you follow up with a doctor, nurse practitioner, or physician?s content assistant for ongoing care. If your symptoms become worse or you do not improve as expected and you are unable to reach your usual health care provider, you should return to the Emergency Department. We are available 24 hours a day. MARIBEL VELEZ has been given the following list of patient education materials, prescriptions and follow-up instructions: Follow-up Instructions: With: Address: When: Salena ALVAREZMichelle In 3 days 10/22/2021 In the event that this physician does not participate in your insurance network, please consult with your insurance company to find a nearby participating provider. Patient Education Materials: Viral Respiratory Infection, Fyax-Aj-Mlfx A MESSAGE TO ALL PATIENTS REGARDING OPIOIDS PRESCRIPTION OPIOIDS: WHAT YOU NEED TO KNOW Prescription opioids can be used to help relieve jhigssjj-yh-nakxth pain and are often prescribed following a [...] be struggling with addiction, tell your health primary care provider and ask for guidance or call [facility]?S National Helpline at [phone]. [place] [facility]: [facility] (more content not included)... Normal [facility] Influenza A&B Agon Influenzae A Ag Negative Normal Negative [facility] Comment on above: Performed By: #### 1 [id number] ####[facility] [id number] [place] [address] Influenzae B Ag Negative Normal Negative [facility] Comment on above: Result Comment: Test sensitivity and specificity vary for age group, specimen type, antigen types, and prevalence of disease. Test results must be evaluated in conjunction with other clinical data available to the physician. Individuals who received nasally administered Influenza A vaccine may have positive test results up to 3 days after vaccination. Performed By: #### 1 [id number] ####[facility] [address] [place] [address] MICRO OTHER TESTSOrdered By: Mya Reza on 10-19-2021 Influenzae A Ag Negative (10/19/21 5:05 PM) Normal Negative [facility] Influenzae B Ag Negative (10/19/21 5:05 PM) Normal Negative [facility] Rapid COV Int NEG Ctl Pass (10/19/21 5:05 PM) Normal [facility] Man [facility] Rapid COV Int POS Ctl Pass (10/19/21 5:05 PM) Normal [facility] SARS-CoV+SARS-CoV-2 (COVID-19) Ag IA.rapid Ql (Resp) Not Detected (10/19/21 5:05 PM) Normal Not Detected [facility] Rapid COVID Antigen ([facility])on 10-19-2021 Rapid COV Int NEG Ctl Pass Normal [facility] Comment on above: Performed By: #### 2 [id number] ####[facility] [address] [place] [address] Rapid COV Int POS Ctl Pass Normal [facility] Comment on above: Performed By: #### 2 [id number] ####[address] [address] SARS-CoV+SARS-CoV-2 (COVID-19) Ag IA.rapid Ql (Resp) Not detected Normal Not Detected [facility] Comment on above: Result Comment: The Ante Upitor? System for Rapid Detection of SARS-CoV-2 is [...] or revoked sooner. Performed By: #### 2 [id number] ####[place] [address] ADMITTED TO INTENSIVE CARE UNIT FOR CONDITION OF INTEREST:FIND:PT: NO Normal [facility] Comment on above: Performed By: #### 2 [id number] ####[place] [address] EMPLOYED IN A HEALTHCARE SETTING:FIND:PT: NO Normal [facility] Comment on above: Performed By: #### 2 [id number] ####[place] [address] FIRST TEST FOR CONDITION OF INTEREST:FIND:PT: Unknown Normal [facility] Comment on above: Performed By: #### 2 [id number] ####[place] [address] HAS SYMPTOMS RELATED TO CONDITION OF INTEREST:FIND:PT: YES Normal [facility] Comment on above: Performed By: #### 2 [id number] ####[place] [address] HOSPITALIZED FOR CONDITION OF INTEREST:FIND:PT: NO Normal [facility] Comment on above: Performed By: #### 2 [id number] ####[place] [address] STATUS:FIND:PT: NO Normal [facility] Comment on above: Performed By: #### 2 [id number] ####[facility] [address] [place] [address] RESIDES IN A CONGREGATE CARE SETTING:FIND:PT: NO Normal [facility] Comment on above: Performed By: #### 2 [id number] ####[facility] [id number] [place] [address] US SINGLE QUAD RT UPPERon US SINGLE [...] by: SUGAR CAMARENA Date: 2021-09-19 11:51 Normal [facility] 08-05-2021 [facility] [place] [address] Nuclear Medicine Report Signed Patient: Maribel Velez MR#: [id number] : 2000 Acct:[id number] Age/Sex: 21 / F ADM Date: 08/05/21 Loc: [place] Room: Type: [facility] Attending Dr: Amy Goodrich DO Ordering Provider: Amy Goodrich Jr, DO Date of Service: 08/05/21 VT/VT Meckel's: Blood in stool;Abdominal pain Copies to: DO Joe Rodriguez Jr, MD Ward, Jeffrey S DO [facility] TECHNIQUE: 12.0 mCi technetium 99m labeled sodium pertechnetate administered intravenously. Sequential planar imaging of the abdomen performed. HISTORY: Upper abdominal pain. Cramping. Blood clots in stool. No abnormal uptake is seen to suggest active Meckel's diverticulum. NM/NM Meckel's IMPRESSION: No findings to suggest active Meckel's diverticulum. Impression dictated by: Naseem Cevallos M.D.08/05/2021 4:16 PM Dictation Location: [facility]--13 Transcribed By: [facility] 08/05/211615 Dictated By: Naseem Cevallos DO 08/05/211610 Signed By: 08/05/211615 Normal [facility] HCG,Urineon 07-29-2021 Beta HCG ( test) Ql (U) Negative Normal [facility] Comment on above: Result Comment: PERF ORMED BY: [place] [address] PATHOLOGIST PERSONNEL REPRESENTATIVE EDDIE CORTÉS M.D. Performed By: #### U HCG #### [address] 07-29-2021 L Specimen: [id number] Received: 07/29/21 Status: ОЛЕГIlya Lucio Num: [id number] Spec Type: Surgical Subm Dr: Amy Goodrich Jr, DO Tissues: A Colon Biopsy (RANDOM BX) Procedures: HE Stain/2, Gross/Micro L4 Patient Age/Sex Location Account Attending Physician Maribel Velez 20/F [id number] Amy Goodrich Jr, DO SPEC NUM: [id number] RECD: 07/29/21 STATUS: AMMY REDDY NUM: [id number] DIMITRI: 07/29/[address] [facility] [address]: Amy Goodrich Jr, DO ENTERED: 07/29/21 [facility] DR: ELENA TYPE: Surgical DEPT: S ORDERED: [...] microscopic findings support the above pathologic diagnosis. [id number] Specimen: [id number] Received: 07/29/21 Status: AMMY Reddy Num: [id number] Spec Type: Surgical Subm Dr: Amy Goodrich Jr, DO Tissues: A Colon Biopsy (RANDOM BX) Procedures: HE Stain/2, Gross/Micro L4 Patient: Maribel Velez [id number] (Continued) Signed (signature on file) Eddie Cortés MD 07/30/21 8084 [facility] COVID-19 Antigenon 2 COVID-19 Antigen Healthcare [...] its performance Lucas Disclaimer characteristic determined by [employer] and Lucas Disclaimer validated at [facility]. This Lucas Disclaimer test has not [...] is terminated or revoked sooner. PERFORMED BY: [place] [phone] PATHOLOGIST PERSONNEL REPRESENTATIVE EDDIE CORTÉS M.D. [facility] Comment on above: Performed By: #### C OVID-19 LUCAS, SOFIANEG #### [facility] [address] [place] [address] Lucas Ag Negativeon 07-25-19 22 Lucas Ag Negative Negative Normal Negative [place] Comment on above: Result Comment: This is a duplicate Lucas SARS Antigen (REINIER) result to be used for statistical tracking purpose only. PERFORMED BY: [place] [address] PATHOLOGIST PERSONNEL REPRESENTATIVE EDDIE CORTÉS M.D. Performed By: #### C OVID-19 LUCAS, SOFIANEG #### [facility] [address] [place] [address] COVID-19 Antigenon 2 COVID-19 Antigen Healthcare Worker?: [...] its performance Lucas Disclaimer characteristic determined by [employer] and Lucas Disclaimer validated at [facility]. This Lucas Disclaimer test has not [...] is terminated or revoked sooner. PERFORMED BY: [place] [address] PATHOLOGIST PERSONNEL REPRESENTATIVE EDDIE CORTÉS M.D. Normal [facility] Comment on above: Performed By: #### S OFIANEG, COVID-19 LUCAS #### [address] Lucas Ag Negativeon 07-16-19 22 Lucas Ag Negative Negative Normal Negative [place] Comment on above: Result Comment: This is a duplicate Lucas SARS Antigen (REINIER) result to be used for statistical tracking purpose only. PERFORMED BY: [place] [address] PATHOLOGIST PERSONNEL REPRESENTATIVE EDDIE CORTÉS M.D. Performed By: #### C UU #### [address] #### VAGINITIS+ #### [facility] , Patient [...] meters squared number. To calculate BMI with Tanzanian measurements: 1. Measure weight in lb. 2. [...] people from 2?20 years of age. Health medicare contact specialist use the charts to identify underweight [...] 08/20/2004 Document Revised: 05/13/2018 Document Reviewed: 11/11/2016 [employer] Patient Education ? 2020 Equals6. [facility] Urinalysis - AUTOMATEDon Appearance (U) cloudy [employer] Other Bilirubin Ql (U) Negative [employer] Other Color (U) yellow [facility] Other Glucose Ql (U) Negative [employer] Other Hemoglobin Ql (U) Negative [employer] Other Ketones Ql (U) Negative [employer] Other Leukocyte esterase Test strip Ql (U) small [facility] Other Nitrite Ql (U) Negative [employer] Other pH (U) 8.5 [pH] [facility] Other Protein Ql (U) Negative [employer] Other Specific gravity (U) [Rel density] 1.025 [facility] Other Urobilinogen (U) [Mass/Vol] 1.0 mg/dL [facility] Other Urinalysis - AUTOMATED [facility] Other Urine Cultureon 04-08-2021 Bacteria identified Cx Nom (U) Reason for Exam Vaginal discharge Urine 75,000 colonies/ml mixed bacterial skin contaminants 2 Days PERFORMED BY: [place] [address] PATHOLOGIST PERSONNEL REPRESENTATIVE EDDIE CORTÉS M.D. [facility] Comment on above: Performed By: #### C UU #### [facility] [address] [place] [address] #### VAGINITIS+ #### [facility] , Vaginitis Plus (VG+)on 04-08 Atopobium Vaginae Low - 0 Normal . [place] Comment on above: Order Comment: Reaso n for Exam High risk bisexual behavior Performed By: #### C UU #### [address] #### VAGINITIS+ #### [facility] , BVAB2 Low - 0 Normal . [facility] Comment on above: Order Comment: Reaso n for Exam High risk bisexual behavior Performed By: #### C UU #### [facility] [address] [place] [address] [place] #### VAGINITIS+ #### [facility] , Allan Albicans, YUNIOR Positive Critically abnormal Negative [facility] Comment on above: Order Comment: Reaso n for Exam High risk bisexual behavior Result Comment: This test was developed and its performance characteristics determined by [facility]. It has not been cleared or approved by the Food and Drug Administration. Performed By: #### C UU #### [facility] [address] [place] [address] [place] #### VAGINITIS+ #### [facility] , Allan Glabrata, YUNIOR Negative Normal Negative [facility] Comment on above: Order Comment: Reaso n for Exam High risk bisexual behavior Result Comment: This test was developed and its performance characteristics determined by [facility]. It has not been cleared or approved by the Food and Drug Administration. PERFORMED BY: [place] [address] PATHOLOGIST PERSONNEL REPRESENTATIVE EDDIE CORTÉS M.D. Performed By: #### C UU #### [place] [address] [place] #### VAGINITIS+ #### [facility] , Chlamydia Trachomotis, YUNIOR Negative Normal Negative [facility] Comment on above: Order Comment: Reaso n for Exam High risk bisexual behavior Performed By: #### C UU #### [place] [address] [place] #### VAGINITIS+ #### [facility] , Megasphaera Low - 0 Normal . [facility] Comment on above: Order Comment: Reaso [...] Administration. Performed By: #### C UU #### [place] [address] [place] #### VAGINITIS+ #### [facility] , Neisseria Gonorrhoeae, YUNIOR Negative Normal Negative [facility] Comment on above: Order Comment: Reaso n for Exam High risk bisexual behavior Result Comment: Perf ormed at: =G - [facility] [address] [place] [id number] Audit Reviewer: Kim Anderson MD, Phone: [phone] Performed By: #### C UU #### [place] [address] [place] #### VAGINITIS+ #### [facility] , Tric Vag YUNIOR Negative Normal Negative [facility] Comment on above: Order Comment: Reaso n for Exam High risk bisexual behavior Performed By: #### C UU #### [facility] [address] #### VAGINITIS+ #### [facility] , XR [...] Normal right femur x-rays. Interpreted by: Josué rEickson MD Signed by: Josué Erickson MD 11/15/19 Final result Normal [facility] Normal right femur x-rays. [place], [place] RIGHT FEMUR X-RAYS, 11/15/2019. HISTORY: Right hip and leg pain. COMPARISON: None. FINDINGS: AP and lateral views of the right femur were obtained. Bone mineralization is normal. Alignment is normal. There is no fracture. No dislocation. No degenerative changes. [place], [place] Sam, [facility] Incoming Radiant Results From Values of n/[facility] - 11/15/2019 6:01 PM EDT RIGHT FEMUR X-RAYS, 11/15/2019. HISTORY: Right hip and leg pain. COMPARISON: None. FINDINGS: AP and lateral views of the right femur were obtained. Bone mineralization is normal. Alignment is normal. There is no fracture. No dislocation. No degenerative changes. IMPRESSION: Normal right femur x-rays. [place], [place] ED Provider Noteon 9 Protein mass conc [facility] ED eMERGENCY dEPARTMENT eNCOUnter Pt Name: [...] the Claritin, Tessalon, increase fluids, rest. Take phwg-[id number]-mzuliyr Tylenol or ibuprofen as if her pain. [...] Discharge 08/10/2018 10:34:25 AM PATIENT REFERRED TO: [facility] [address] [facility] [address] Call As needed DISCHARGE MEDICATIONS: [...] Provider KARMEN Urrutia CNP 08/10/18 1037 Normal [facility] Vital Signs Date Time Vital Sign Value Performing Clinician Facility 06-22-2024 10:01-0500 Body weight 75.81 kg Marycarmen MELÉNDEZ Work Phone: [facility] 06-22-2024 10:01-0500 Diastolic blood pressure 60 mm[Hg] Marycarmen MELÉNDEZ Work Phone: [facility] 06-22-2024 10:01-0500 Systolic blood pressure 110 mm[Hg] Marycarmen MELÉNDEZ Work Phone: [facility] 06-08-2024 10:40-0500 Body weight 76.11 kg Eldon Kaykay DO Work Phone: [facility] 06-08-2024 10:40-0500 Diastolic blood pressure 60 mm[Hg] Eldon Kaykay DO Work Phone: [facility] 06-08-2024 10:40-0500 Systolic blood pressure 120 mm[Hg] Eldon Kaykay DO Work Phone: [facility] 05-24-2024 12:00-0500 Body weight 75.66 kg Eldon Kaykay DO Work Phone: [facility] 05-24-2024 12:00-0500 Diastolic blood pressure 76 mm[Hg] Eldon Kaykay DO Work Phone: [facility] 05-24-2024 12:00-0500 Systolic blood pressure 108 mm[Hg] Eldon Kaykay DO Work Phone: [facility] 05-08-2024 11:03-0500 Body weight 73.03 kg Marycarmen Thibodeaux PA Work Phone: [facility] 05-08-2024 11:03-0500 Diastolic blood pressure 72 mm[Hg] Marycarmen Morelia PA Work Phone: [facility] 05-08-2024 11:03-0500 Systolic blood pressure 110 mm[Hg] Marycarmen Morelia PA Work Phone: [facility] 04-17-2024 10:11-0500 Body weight 71.22 kg Eldon Kaykay DO Work Phone: [facility] 04-17-2024 10:11-0500 Diastolic blood pressure 62 mm[Hg] Eldon Kaykay DO Work Phone: [facility] 04-17-2024 10:11-0500 Systolic blood pressure 110 mm[Hg] Eldon Kaykay DO Work Phone: [facility] 03-16-2024 12:06-0400 Body weight 68.04 kg Marycarmen Thibodeaux PA Work Phone: [facility] 03-16-2024 12:06-0400 Diastolic blood pressure 66 mm[Hg] Marycarmen Thibodeaux PA Work Phone: [facility] 03-16-2024 12:06-0400 Systolic blood pressure 108 mm[Hg] Marycarmen Thibodeaux PA Work Phone: [facility] 03-08-2024 18:24-0400 Body height 165.1 cm [facility] 03-08-2024 18:24-0400 Body mass index (BMI) [Ratio] 24.7 kg/m2 [facility] 03-08-2024 18:24-0400 Body temperature 99.1 [degF] [facility] 03-08-2024 18:24-0400 Body weight 67.58 kg [facility] 03-08-2024 18:24-0400 Diastolic blood pressure 88 mm[Hg] [facility] 03-08-2024 18:24-0400 Heart rate 84 /min [facility] 03-08-2024 18:24-0400 Respiratory rate 18 /min [facility] 03-08-2024 18:24-0400 SaO2% (BldA) [Mass fraction] 96 % [facility] 03-08-2024 18:24-0400 Systolic blood pressure 130 mm[Hg] [facility] 02-17-2024 11:13-0400 Body weight 66.68 kg Marycarmen MELÉNDEZ Work Phone: [facility] 02-17-2024 11:13-0400 Diastolic blood pressure 66 mm[Hg] Marycarmen MELÉNDEZ Work Phone: [facility] 02-17-2024 11:13-0400 Systolic blood pressure 108 mm[Hg] Marycarmen MELÉNDEZ Work Phone: [facility] 02-13-2022 07:25-0400 Diastolic blood pressure 98 mm[Hg] Kevin Santoro [facility] 02-13-2022 07:25-0400 Systolic blood pressure 153 mm[Hg] Kevin Santoro [facility] 02-13-2022 06:20-0400 Body temperature 98.24 [degF] Kevin Santoro [facility] 02-13-2022 06:20-0400 Diastolic blood pressure 74 mm[Hg] Kevin Santoro [facility] 02-13-2022 06:20-0400 Heart rate 75 /min Kevin Alvaradoe [facility] 02-13-2022 06:20-0400 Respiratory rate 20 /min Kevin Santroo [facility] 02-13-2022 06:20-0400 SaO2% (BldA) [Mass fraction] 98 % Kevin Santoro [facility] 02-13-2022 06:20-0400 Systolic blood pressure 119 mm[Hg] Kevin Santoro [facility] 10-19-2021 17:09-0400 Body temperature 98.96 [degF] Miko Kaur [facility] 10-19-2021 17:09-0400 Diastolic blood pressure 84 mm[Hg] Miko Kaur [facility] 10-19-2021 17:09-0400 Heart rate 89 /min Miko Kaur [facility] 10-19-2021 17:09-0400 Respiratory rate 17 /min Miko Kaur [facility] 10-19-2021 17:09-0400 SaO2% (BldA) [Mass fraction] 100 % Miko Kaur [facility] 10-19-2021 17:09-0400 Systolic blood pressure 138 mm[Hg] Miko Kaur [facility] 09-17-2021 15:00-0400 Body weight 61.69 kg Amy Goodrich Other [facility] [employer] Other 06-25-2021 15:15-0500 Body weight 62.6 kg Amy Goodrich Other [facility] Other 04-08-2021 14:50-0400 Body height 163.83 cm Maribel Randall Other [facility] Other 04-08-2021 14:50-0400 Body mass index (BMI) [Ratio] 24.84 kg/m2 Maribel Randall Other [facility] Other 04-08-2021 14:50-0400 Body temperature 98.2 [degF] Maribel Randall Other [facility] Other 04-08-2021 14:50-0400 Body weight 66.68 kg Maribel Randall Other [facility] Other 04-08-2021 14:50-0400 Diastolic blood pressure 80 mm[Hg] Maribel Randall Other [facility] Other 04-08-2021 14:50-0400 Respiratory rate 18 /min Maribel Randall Other [facility] Other 04-08-2021 14:50-0400 SaO2% (BldA) [Mass fraction] 100 % Maribel Randall Other [facility] Other 04-08-2021 14:50-0400 Systolic blood pressure 131 mm[Hg] Maribel Randall Other [facility] Other Encounters Encounter Date Encounter Type Care Provider Facility Start: 06-22-2024 End: 06-22-2024 Bamboo flowsheet Marycarmen MELÉNDEZ Work Phone: [facility] Start: 06-22-2024 End: 06-22-2024 Bamboo flowsheet Marycarmen MELÉNDEZ Work Phone: [facility] Start: 06-22-2024 End: 06-22-2024 Clinisync Result Encounter Eldon Zhouo DO Work Phone: [facility] External Department Unsolicited Start: 06-22-2024 End: 06-22-2024 ambulatory MARYCARMEN THIBODEAUX Not Available Start: 06-22-2024 End: 06-22-2024 Office outpatient visit 15 minutes Marycarmen MELÉNDEZ Work Phone: [facility] Comment on above: 34 weeks gestation o f ; Third trimester Start: 06-08-2024 End: 06-08-2024 Bamboo flowsheet Eldon Kaykay DO Work Phone: [facility] Start: 06-08-2024 End: 06-08-2024 Bamboo flowsheet Eldon Kaykay DO Work Phone: [facility] Start: 06-08-2024 End: 06-08-2024 ambulatory ELDON KAYKAY Not Available Start: 06-08-2024 End: 06-08-2024 Office outpatient visit 15 minutes Eldon Kaykay DO Work Phone: [facility] Comment on above: 32 weeks gestation o f ; Third trimester ; Excessive growth affecting management of , antepartum, single or unspecified fetus Start: 06-05-2024 End: 06-05-2024 Clinisync Result Encounter Eldon Kaykay DO Work Phone: [facility] Unsolicited Start: 06-05-2024 End: 06-05-2024 Clinisync Result Encounter Eldon Kaykay DO Work Phone: [facility] Unsolicited Start: 05-24-2024 End: 05-24-2024 Bamboo flowsheet Eldon [...] Result Encounter Eldon Kaykay DO Work Phone: [facility] External Department Unsolicited Start: 05-08-2024 End: 05-08-2024 Bamboo flowsheet Marycarmen MELÉNDEZ Work Phone: [facility] Start: 05-08-2024 End: 05-08-2024 Bamboo flowsheet Marycarmen MELÉNDEZ Work Phone: [facility] Start: 05-08-2024 End: 05-08-2024 ambulatory MARYCARMEN THIBODEAUX Not Available Start: 05-08-2024 End: 05-08-2024 Office outpatient visit 15 minutes Marycarmen MELÉNDEZ Work Phone: [facility] Comment on above: Third trimester preg katie; 29 weeks gestation of Start: 04-17-2024 End: 04-17-2024 Bamboo flowsheet Eldon Kaykay DO Work Phone: [facility] Start: 04-17-2024 End: 04-17-2024 Bamboo flowsheet Eldon Kaykay DO Work Phone: [facility] Start: 04-17-2024 End: 04-17-2024 ambulatory ELDON KAYKAY Not Available Start: 04-17-2024 End: 04-17-2024 Office outpatient visit 15 minutes Eldon Kaykay DO Work Phone: [facility] Comment on above: Second trimester pre gnancy; 24 weeks gestation of ; Diabetes mellitus screening Start: 03-16-2024 End: 03-16-2024 Bamboo flowsheet Marycarmen MELÉNDEZ Work Phone: [facility] Start: 03-16-2024 End: 03-16-2024 Bamboo flowsheet Marycarmen MELÉNDEZ Work Phone: [facility] Start: 03-16-2024 End: 03-16-2024 ambulatory MARYCARMEN THIBODEAUX Not Available Start: 03-16-2024 End: 03-16-2024 Office outpatient visit 15 minutes Marycarmen MELÉNDEZ Work Phone: [facility] Comment on above: 20 weeks gestation o f (Primary Dx); Second trimester ; Constipation, unspecified constipation type Start: 03-08-2024 End: 03-08-2024 ambulatory [facility] Work Phone: Start: 03-08-2024 End: 03-08-2024 Patient encounter procedure [facility] Work Phone: Start: 02-17-2024 End: 02-17-2024 Bamboo flowsheet Marycarmen MELÉNDEZ Work Phone: [facility] Start: 02-17-2024 End: 02-19-2024 Bamboo flowsheet Marycarmen MELÉNDEZ Work Phone: [facility] Start: 02-17-2024 End: 02-19-2024 Clinisync Result Encounter Eldon Mccracken DO Work Phone: [facility] External Department Unsolicited Start: 02-17-2024 End: 02-19-2024 External Result Encounter Mraycarmen MELÉNDEZ Work Phone: [facility] Unsolicited Start: 02-17-2024 End: 02-17-2024 ambulatory MARYCARMEN THIBODEAUX Not Available Start: 02-17-2024 End: 02-17-2024 Office outpatient visit 15 minutes Marycarmen MELÉNDEZ Work Phone: [facility] Comment on above: Screening, , for anatomic survey; Well woman exam with routine gynecological exam; 17 weeks gestation of ; Screen for STD (sexually transmitted disease); Vaginal discharge; Nonintractable headache, unspecified chronicity pattern, unspecified headache type Start: 02-17-2024 End: 02-17-2024 Patient encounter procedure Marycarmen MELÉNDEZ Work Phone: [facility] Start: 01-20-2024 End: 01-20-2024 ambulatory ELDON MCCRACKEN Not Available Start: 08-12-2023 End: 08-12-2023 ambulatory AMBREEN DAN Not Available Start: 07-10-2022 End: 07-10-[address] NASEEM PAY Facility:[facility] Start: 06-17-2022 End: 06-17-[address] JAYSON FIORE Facility:[facility] Start: 03-02-2022 End: 03-02-2022 ambulatory Lucia Thorne Facility:[facility] Start: 03-02-2022 End: 03-02-2022 Departed Referred MD Lucia Thorne Work Phone: [facility] Start: 02-13-2022 End: 02-13-2022 Emergency department patient visit Kevin Santoro [facility] Start: 02-03-2022 End: 02-03-2022 Patient encounter procedure CAITIE MARSHALL [facility] Start: 01-15-2022 End: 01-16-[address] JOE PEREZ Facility:[facility] Start: 10-19-2021 End: 10-19-2021 Emergency department patient visit Miko Kaur [facility] Start: 09-19-2021 End: 09-20-[address] JOE PEREZ Facility:[facility] Start: 09-17-2021 End: 09-17-2021 ambulatory Amy Goodrich Other [facility] Other Start: 09-17-2021 Office outpatient vi sit 15 minutes Amy Goodrich [facility] Start: 08-05-2021 End: 08-05-2021 ambulatory Amy Goodrich Facility:[facility] Start: 08-01-2021 End: 08-01-2021 ambulatory Amy Goodrich Other [facility] Other Start: 08-01-2021 Telephone encounter Amy Goodrich [facility] Start: 07-29-2021 Telephone encounter Amy Goodrich [facility] Start: 07-29-2021 End: 07-29-2021 ambulatory Amy Goodrich [facility] [employer] Other Start: 07-25-2021 End: 07-25-2021 ambulatory Amy Goodrich Facility:[facility] Start: 07-16-2021 End: 07-16-2021 ambulatory Amy Goodrich Facility:[facility] Start: 06-25-2021 End: 06-25-2021 ambulatory Amy Goodrich Other [facility] [employer] Other Start: 06-25-2021 Office outpatient vi sit 25 minutes Amy Goodrich [facility] Start: 04-08-2021 End: 04-08-2021 ambulatory Maribel Randall Facility:[facility] Start: 04-08-2021 Office outpatient vi sit 15 minutes Maribel Randall [facility] Start: 11-15-2019 End: 11-18-2019 Patient encounter procedure [facility] Start: 11-15-2019 End: 11-17-2019 Subsequent hospital visit by physician Pauline Gallardo [facility] Comment on above: Injury of right knee , initial encounter Start: 11-15-2019 End: 11-18-2019 Patient encounter procedure [facility] Start: 11-15-2019 End: 11-17-2019 Subsequent hospital visit by physician Joe Perez [facility] Start: 08-10-2018 Emergency department patient visit UNKNOWN PROVIDER [facility] Procedures Date Procedure Procedure Detail Performing Clinician Start: 06-22-2024 ALL CBC WITH AUTO DIFF Eldon Kaykay DO Work Phone: Start: 06-22-2024 Urnls dip stick/tabl et rgnt non-auto w/o micrscp Marycarmen Thibodeaux PA Work Phone: Start: 06-08-2024 Urnls dip stick/tabl et rgnt non-auto w/o micrscp Eldon Kaykay DO Work Phone: Start: 06-05-2024 MLR HEMOGLOBIN A1C Core y Kaykay DO Work Phone: Start: 05-24-2024 Urnls dip stick/tabl et rgnt non-auto w/o micrscp Eldon Kaykay DO Work Phone: Start: 05-09-2024 Antibody screen Eldon F alfredio DO Work Phone: Start: 05-09-2024 ALL TYPE [...] AFP, SERUM, OPEN SPI NA BIFIDA Eldon Kaykay DO Work Phone: Start: 02-17-2024 Urnls dip stick/tabl et rgnt non-auto w/o micrscp Marycarmen MELÉNDEZ Work Phone: Start: 01-24-2020 Arthroscopy of knee Miko Vincent Start: 11-15-2019 Radiologic examinati on femur minimum 2 views MICHAEL SMALLS Start: 11-15-2019 Radiologic examinati on femur minimum 2 views Michael Smalls Other Phone: Plan of Treatment Date Care Activity Detail Author Start: 07-06-2024 End: 07-06-2024 Professional / ancillary services management 07/06/2024 9:30 AM EST Ancillary Procedure [facility] [address] [facility] [place] [address] [facility] Start: 06-29-2024 End: 06-29-2024 Patient encounter procedure 06/29/2024 9:00 AM EST Routine [facility] [address] [facility] [id number] Eldon Mccracken DO [address] [place] [address] [place] [address] [facility] Start: 06-22-2024 End: 06-22-2024 Patient encounter procedure 06/22/2024 9:50 AM EST Routine [facility] [address] [facility] [place] [address] Marycarmen Thibodeaux PA [address] [place] [address] [facility] Start: 06-08-2024 End: 06-08-2025 US for US OB SCAN FOR GROWTH Imaging Routine Excessive growth affecting management of , antepartum, single or unspecified fetus Expected: 06/08/2024 (Approximate), Expires: 06/08/2025 [facility] Work Phone: Comment on above: Expected: 06/08/2024 (Approximate), Expires: 06/08/2025 Start: 06-08-2024 End: 06-08-2024 Patient encounter procedure 06/08/2024 10:10 AM EST Routine [facility] [address] [facility] [phone] Eldon Mccracken, [address] [place] [address] [place] [address] [facility] Start: 06-05-2024 End: 06-05-2024 Professional / ancillary services management 06/05/2024 10:30 AM EST Ancillary Procedure [facility] [address] [facility] [place] [id number] [facility] Start: 05-24-2024 End: 05-24-2025 [...] AM EST Routine [facility] [address] [facility] [place] [address] Marycarmen Thibodeaux PA [address] [facility] [address] [place], [place] [id number] [facility] Start: 04-17-2024 End: 04-17-2025 CBC panel - Blood by Automated count CBC Lab Routine Diabetes mellitus screening Expected: 04/17/2024 (Approximate), Expires: 04/17/2025 [facility] Work Phone: Comment on above: Expected: 04/17/2024 (Approximate), Expires: 04/17/2025 Start: 04-17-2024 End: 04-17-2025 Measurement of glucose 1 hour after glucose challenge for glucose tolerance test Glucose tolerance, 1 hour Lab Routine Diabetes mellitus screening Expected: 04/17/2024 (Approximate), Expires: 04/17/2025 [facility] Comment on above: Expected: 04/17/2024 (Approximate), Expires: 04/17/2025 Start: 04-17-2024 End: 04-17-2024 Patient encounter procedure 04/17/2024 9:50 AM EST Routine [facility] [address] [facility] [phone] Eldon Mccracken DO [address] [place] [address] [facility] Start: 03-16-2024 End: 03-16-2024 Patient encounter procedure 03/16/2024 11:30 AM EDT Routine [facility] [address] [facility] [phone] Marycarmen Thibodeaux PA [address] [facility] [address] [place], [place] [id number] [facility] Start: 03-16-2024 End: 03-16-2024 Professional / ancillary services management 03/16/2024 10:30 AM EDT Ancillary Procedure [facility] OB [address] [facility] [place] [phone] [facility] Start: 02-17-2024 End: 02-16-2025 Alpha fetoprotein, maternal Alpha fetoprotein, maternal Lab Routine 17 weeks gestation of Expected: 02/17/2024 (Approximate), Expires: 02/16/2025 [facility] Comment on above: Expected: 02/17/2024 (Approximate), Expires: 02/16/2025 Start: 02-17-2024 End: 02-16-2025 US for US OB ANATOMY SINGLE W US OB CERVICAL LENGTH Imaging Routine Screening, , for anatomic survey Expected: 02/17/2024 (Approximate), Expires: 02/16/2025 [facility] Comment on above: Expected: 02/17/2024 (Approximate), Expires: 02/16/2025 Start: 02-13-2024 Influenza vaccination Influenza Vacc ine (#1) [facility] Start: 02-13-2020 Influenza vaccination Flu vacc ine (Season Ended) [place], [place] Start: 2018 Meningococcal (ACWY) vaccine (1 - 2-dose series) Meningococcal (ACWY) vaccine (1 - 2-dose series) [place] Start: 2018 Screening for Chlamy nkechi trachomatis Chlamydia screen [place] Start: 2017 [facility] [place] Start: 2013 HPV vaccine (1 - 2-d ose series) HPV vaccine (1 - 2-dose series) [place] Start: 2009 DTaP/Tdap/Td vaccine (1 - Tdap) DTaP/Tdap/Td vaccine (1 - Tdap) [place] Start: 2003 Hepatitis A vaccine (1 of 2 - 2-dose series) Hepatitis A vaccine (1 of 2 - 2-dose series) [place] Start: 2003 Measles,Mumps,Rubell a (MMR) vaccine (1 of 2 - Standard series) Measles,Mumps,Rubella (MMR) vaccine (1 of 2 - Standard series) [place] Start: 2003 Varicella vaccine (1 of 2 - 2-dose childhood series) Varicella vaccine (1 of 2 - 2-dose childhood series) [place] Start: 2002 Polio vaccine (1 of 3 - 4-dose series) Polio vaccine (1 of 3 - 4-dose series) [place] Start: 2002 Hepatitis B vaccine (1 of 3 - 3-dose primary series) [place] Atopobium vaginae DN A [Presence] in Vaginal fluid by YUNIOR with probe detection [facility] Work Phone: Bacteria identified in Urine by Culture [facility] Bacterial vaginosis associated bacterium 2 DNA [Presence] in Vaginal fluid by YUNIOR with probe detection [facility] Work Phone: CHLAMYDIA TRACHOMATI S (GENITO/STI) CHLAMYDIA TRACHOMATIS (GENITO/STI) Lab Routine 17 weeks gestation of Screen for STD (sexually transmitted disease) Vaginal discharge Ordered: 02/17/2024 [facility] Comment on above: Ordered: 02/17/2024 Cytology Cervical or vaginal smear or scraping study Pap Smear Pathology and Cytology Routine Well woman exam with routine gynecological exam Ordered: 02/17/2024 [facility] Work Phone: Comment on above: Ordered: 02/17/2024 Megasphaera sp type 1 DNA [Presence] in Vaginal fluid by YUNIOR with probe detection [facility] Work Phone: Neisseria gonorrhoea e DNA [Presence] in Unspecified specimen by YUNIOR with probe detection Neisseria gonorrhea DNA probe, direct Lab Routine 17 weeks gestation of Screen for STD (sexually transmitted disease) Vaginal discharge Ordered: 02/17/2024 [facility] Comment on above: Ordered: 02/17/2024 SURESWAB(R) ADVANCED VAGINITIS PLUS, TMA SURESWAB(R) ADVANCED VAGINITIS PLUS, TMA Pathology and Cytology Routine 17 weeks gestation of Screen for STD (sexually transmitted disease) Vaginal discharge Ordered: 02/17/2024 [facility] Comment on above: Ordered: 02/17/2024 Payers Date Payer Category Payer Medicaid 2022 Unknown [id number] 2021 Self-pay [id number] 2018 Unknown [employer] xxxxxxxxxxx 2018-Present [phone] [address] [place] [address] xxxxxxxxxxx [id number] 2018 Unknown [id number] 2002 Unknown [id number] 2.16.840.1.276414.3.579.2. 593 2002 Unknown [id number] 2.16840.1.955992.3.579.2. 593 2002 Unknown [id number] 2.840.1.713005.3.579.2. 593 2002 Unknown [id number] 2.16.840.1.438343.3.579.2. 593 2002 Unknown [id number] 2.16.840.1.880181.3.579.2. 1259 2002 Unknown [id number] 2.16840.1.197304.3.579.2. 1259 2002 Unknown [id number] 2.16.840.1.664604.3.579.2. 1259 2002 Unknown [id number] 2.16.840.1.127995.3.579.2. 1259 2002 Unknown [id number] 2.16.840.1.644163.3.579.2. 1259 2002 Unknown [id number] 2.16.840.1.571187.3.579.2. 1259 2002 Unknown [id number] 2.16840.1.974632.3.579.2. 1259 2002 Unknown [id number] 2.16.840.1.102927.3.579.2. 1259 1989 Unknown [id number] 2.16840.1.914708.3.579.2. 174 1989 Unknown [id number] 2.16840.1.907425.3.579.2. 174 1984 Unknown [id number] 2.0.1.682895.3.579.2. 668 1959 Medicaid [id number] Private Health Insurance [facility] [id number] Unknown [id number] 2.840.1.052194.3.579.2. 531 Unknown [id number] 07.30.830.1.884046.3.579.2. 531 Unknown [id number] .0.1.165535.3.579.2. 531 Unknown [id number] 2.0.1.431314.3.579.2. 531 Unknown [id number] 2.0.1.317966.3.579.2. 531 Unknown [id number] 2.840.1.239238.3.579.2. 531 Social History Date Type Detail Facility Start: 08-10-2018 Tobacco smoking status NHIS Never smoker [place] Start: 08-10-2018 Alcohol intake Current non-dr baggage screener of alcohol (finding) [facility] Start: 2002 Sex Assigned At Not on file [facility] Sex Assigned At Female [facility] Other Tobacco smoking status No Smoking Status Entered [facility] Start: 2002 Sex Assigned At Female [facility] Start: 08-20-2023 Tobacco smoking status NHIS Unknown if ever smoked [facility] Start: 11-10-2023 [facility] Functional Status Date Assessment Result Facility 02-13-2022 Functional Status N/A [facility] Clinical Notes 04-08-2021 to 06-22-2024 [facility] - 06/22/2024 9:50 AM Lauren Nickerson LPN - 06/08/2024 10:10 AM Lauren Nickerson LPN - 05/24/2024 11:10 AM [facility] - 05/08/2024 10:30 AM [facility] - 03/16/2024 11:30 AM EDT Note Date & Type Note Facility 06-22-2024 History of Presen t illness Narrative Reason for Appointment: Patient ID: Maribel Velez is a 23 y.o. female who presents for Routine Visit Patient presents today for Return OB appointment. MEDICATIONS Current Outpatient Medications Medication Instructions magnesium oxide (MAG-OX) 400 mg, Oral, Daily Kgxjamei-Ucg-To-FA ( 1 + IRON PO) Take by mouth ALLERGIES Allergies Allergen Reactions Red Dye Other [...] nursing note reviewed. Exam conducted with a wine steward/stewardess present. Vitals: Estimated body mass index is 21.8 kg/m as calculated from the following: Height as of 04/04/20: 5' 4.75 . Weight as of 04/04/20: 130 lb. BP: 110/60 Patient's last menstrual period was 10/27/2023. ASSESSMENT & PLAN ICD-10-CM 1. 34 weeks gestation of Z3A.34 POCT urinalysis dipstick manually resulted 2. Third trimester Z34.93 POCT urinalysis dipstick manually resulted Return OB: Patient presents today for a routine obstetrics appointment. Patient is currently 34w1d . Patient states she is doing well but has complaints of being tired due to current . Patient has verbalizes frequent movement. labor precautions was discussed/given and patient was instructed to perform kick counts three times a day. Orders Placed This Encounter Procedures POCT urinalysis dipstick manually resulted Follow Up: Patient is to return to office in 1 week for routine OB appointment. Documented by Jeannette Covarrubias LPN on behalf of: [facility] documented in this encounter [facility] 06-08-2024 History of Presen t illness Narrative Reason for Appointment: Patient ID: Maribel Velez is a 23 y.o. female who presents for Routine Visit Patient presents today for Return OB appointment. MEDICATIONS Current Outpatient Medications Medication Instructions magnesium oxide (MAG-OX) 400 mg, Oral, Daily Tkuamyvl-Rvz-Av-FA ( 1 + IRON PO) Take by mouth ALLERGIES Allergies Allergen Reactions Red Dye Other [...] nursing note reviewed. Exam conducted with a wine steward/stewardess present. Vitals: Estimated body mass index is 21.8 kg/m as calculated from the following: Height as of 04/04/20: 5' 4.75 . Weight as of 04/04/20: 130 lb. BP: 120/60 Patient's last menstrual period was 10/27/2023. ASSESSMENT & PLAN ICD-10-CM 1. 32 weeks gestation of Z3A.32 POCT urinalysis dipstick manually resulted 2. Third trimester Z34.93 POCT urinalysis dipstick manually resulted Return OB: Patient presents today for a routine obstetrics appointment. Patient is currently 32w1d . Patient states she is doing well [...] Eldon Mccracken DO documented in this encounter [facility] 05-24-2024 History of Presen t illness Narrative Reason for Appointment: Patient ID: Maribel Velez is a 23 y.o. female who presents for Routine Visit Patient presents today for Return OB appointment. MEDICATIONS Current Outpatient Medications Medication Instructions albuterol (ProAir Digihaler) 90 mcg/act breath-activated inhaler (w/ sensor) 2 puffs, Inhalation, Every 4 hours PRN magnesium oxide (MAG-OX) 400 mg, Oral, Daily Wbocgfbd-Fht-Ic-FA ( 1 + IRON PO) Oral ALLERGIES [...] nursing note reviewed. Exam conducted with a wine steward/stewardess present. Vitals: Estimated body mass index is [...] Eldon Mccracken DO documented in this encounter [facility] 05-08-2024 History of Presen t illness Narrative Reason for Appointment: Patient ID: Maribel Velez is a 23 y.o. female who presents for Routine Visit Patient presents today for Return OB appointment. MEDICATIONS Current Outpatient Medications Medication Instructions albuterol (ProAir Digihaler) 90 mcg/act breath-activated inhaler (w/ sensor) 2 puffs, Inhalation, Every 4 hours PRN magnesium oxide (MAG-OX) 400 mg, Oral, Daily Sjhjcsig-Yvc-Br-FA ( 1 + IRON PO) Oral ALLERGIES [...] to red dye. Pt is waiting for [facility] to call her as soon as her clear glucose drink comes in. Pt states she will call [facility] after the appt today. Follow Up: Patient is to return to office in 2 week for routine OB appointment. Documented by Alexus Brown MA on behalf of: [facility] documented in this encounter [facility] 04-17-2024 History of Presen t illness Narrative Reason for Appointment: Patient ID: Maribel Velez is a 23 y.o. female who presents for Routine Visit Patient presents today for Return OB appointment. MEDICATIONS Current Outpatient Medications Medication Instructions albuterol (ProAir Digihaler) 90 mcg/act breath-activated inhaler (w/ sensor) 2 puffs, Inhalation, Every 4 hours PRN magnesium oxide (MAG-OX) 400 mg, Oral, Daily Ykjuhlsd-Nqr-Ph-FA ( 1 + IRON PO) Oral ALLERGIES [...] nursing note reviewed. Exam conducted with a wine steward/stewardess present. Vitals: Estimated body mass index is [...] Eldon Mccracken DO documented in this encounter [facility] 03-16-2024 History of Presen t illness Narrative [...] magnesium oxide (MAG-OX) 400 mg, Oral, Daily Ewogrmpm-Wzd-Xr-FA ( 1 + IRON PO) Oral ALLERGIES [...] of: [facility] documented in this encounter [facility] 02-17-2024 History of Presen t illness Narrative Reason for Appointment: Patient ID: Maribel Velez is a 23 y.o. female who presents for Routine Visit Patient presents today for Return OB appointment. MEDICATIONS Current Outpatient Medications Medication Instructions magnesium oxide (MAG-OX) 400 mg, Oral, Daily Oykqqanh-Dxr-Fe-FA ( 1 + IRON PO) Oral ALLERGIES [...] by [facility] on behalf of: [facility]nde documented in this encounter [facility] 02-13-2022 Evaluation + Plan note Extrac kasey from: Title:ED Note Author:Irais Gabe TOUSSAINTsunita Lehman Date :02/13/22 Acute hemorrhoid (K64.9: Uns [...] should change or worsen. Diagnosis: Rectal bleeding [facility]09-02-2022 Hospital Discharge instructions Patient Education 02/13/2022 07:28:37 Rectal Bleeding, Zpsi-we-Qhcx Rectal Bleeding Rectal bleeding is when blood [...] 02/10/2012 Document Revised: 05/13/2018 Document Reviewed: 07/26/2016 [facility] Patient Education 2020 Equ[employer]. 02/13/2022 07:28:37 Hemorrhoids, Almu-gu-Chlk Hemorrhoids Hemorrhoids are swollen veins that may [...] 3 times a day. General instructions Take ubbl-ukc-cqjyuqg and prescription medicines only as told by [...] 03/09/2009 Document Revised: 06/08/2019 Document Reviewed: 10/20/2018 [facility] Patient Education 2020 [employer] Follow Up Care 02/13/2022 06:18:09 With:Yu GREENE Address: [facility] [address] [place] [address]- Business (1) When:02/16/2022 07:21:18 With:CAITIE MARSHALL Address:Unknown When:Within 3 Day(s) [facility]05-08-2022 Hospital Discharge instructions Patient Education 10/19/2021 17:18:27 Viral Respiratory Infection, Xbqh-Hu-Ibpl Viral Respiratory Infection A viral respiratory infection [...] at home: Managing pain and congestion Take gfwq-ivx-rfepomn and prescription medicines only as told by [...] and water are not available, use hand certified surgical technician. Avoid contact with people who are [...] 05/13/2009 Document Revised: 06/08/2019 Document Reviewed: 07/11/2018 [facility] Patient Education 2019 Equ[employer]. Follow Up Care 10/19/2021 17:07:38 With:Michelle Mata Address:Unknown When:10/22/2021 [facility]04-06-2022 Evaluation note* Encounter Date Diagnosis Assessment Notes Treatment Notes Treatment Clinical Notes Sep, Rectal bleeding (ICD-10 - K62.5) PATIENT STATES THIS HAPPENS EVERY COUPLE OF MONTHS Sep, Abdominal pain (ICD-10 - R10.9) PATIENT DID HAVE THIS LAST NIGHT ON THE RIGHT SIDE UNDER HER RIBS PATIENT DOES CONTINUE ON THE MEDICATION WILL ORDER SOME TESTING Sep, Diarrhea (ICD-10 - R19.7) [facility] Other 02-15-2022 Evaluation note* Encounter Date Diagnosis Assessment Notes Treatment Notes Treatment Clinical Notes Jul, Blood in stool (ICD-10 - K92.1) Jul, Abdominal pain (ICD-10 - R10.9) [facility] Other 01-12-2022 Evaluation note* Encounter Date Diagnosis Assessment Notes Treatment Notes Treatment Clinical Notes Jun, Diarrhea (ICD-10 - R19.7) Jun, Rectal bleeding (ICD-10 - K62.5) PATIENT ENCOURAGED TO HAVE A COLONOSCOPY START ABOVE MEDICATION Jun, Abdominal pain (ICD-10 - R10.9) [facility] Other 10-26-2021 Evaluation note* Encounter Date Diagnosis [...] up to a week to get back. [facility] Other Chief complaint+Reason for visit Narrative* Chief Complaint Cough, sinus congest ion Reason for Visit Contact with and (mckee spected) exposure to covid-19 Sore throat [facility] Work Phone: Evaluation + Plan note No data available for this section [facility] [employer] Other Evaluation noteNo assessment information available [facility] Work Phone: Evaluation note* Diagnosis Onset Date Resolution Status Contact with and (suspected) exposure to covid-19 noneactive Sore throat noneactive [facility] Work Phone: Evaluation note* Diagnosis 20 [...] headache type [facility] Diagnosis 32 weeks gestation of Third trimester state, incidental Excessive growth affecting management of , antepartum, single or unspecified fetus documented [facility] Diagnosis 34 weeks gestation of Third trimester state, incidental documented in this encounter [facility] Narrative - Reported* Type Description Date Medical History IBS Medical History Constipation Medical History allergies Surgical History right torn lateral meniscus [facility] Other Hospital Discharge instructions No data available for this section [facility] No data available for this section [facility] Summary Purpose Family History No Family [...] disorder Unknown Malignant neoplasm Unknown Advance Directives No Advanced Directives Records FoundDocuments on File Type Date Recorded Patient 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 Services Specialist Expl anation Advance Directives and Living Will Power of Respiratory Therapy Manager Advance Directive Response Recorded Date/ Time Advance Directives No April 16, 2021 2:28pm Advance Directive Response Recorded Date/ Time Advance Directives No August 19 3:12pm Assessments Diagnosis Injury of right knee, initial encounter Chief Complaint and Reason for Visit Chief Complaint Dysuria Vaginal odor Additional Source Comments INFORMATION SOURCE (unrecogn ized section and content) DATE CREATED AUTHOR 08/20/2018 [facility] DATE CREATED AUTHOR AUTHOR'S ORGANIZ ATION 11/18/2019 [facility] DATE CREATED AUTHOR AUTHOR'S ORGANIZ ATION 02/17/2022 Nicole Ricardo [facility] DATE CREATED AUTHOR AUTHOR'S ORGANIZ ATION 03/14/2022 [facility] DATE CREATED AUTHOR AUTHOR'S ORGANIZ ATION 07/13/2022 [facility] DATE CREATED AUTHOR AUTHOR'S ORGANIZ ATION 06/27/2024 [facility] Special[facility] EPIC REASON FOR VISIT [...] March 08, 2024 End: March 08, 2024 Accounting Lecturer Relationship Specialty Start Date End Date Unallocated, Chente Heredia MD [address] [place] [address] [place] [address] PCP - General Family Medicine 08/12/23 Accounting Lecturer Relationship Specialty Start Date End Date Unallocated, Chente Heredia MD [facility] [place] [address] PCP - General Family Medicine 08/12/23 Accounting Lecturer Relationship Specialty Start Date End Date Unallocated, Chente Heredia MD [facility] [place] [address] PCP - General Family Medicine 08/12/23 Accounting Lecturer Relationship Specialty Start Date End Date Unallocated, Chente Heredia MD [facility] [place] [address] PCP - General Family Medicine 08/12/23 Accounting Lecturer Relationship Specialty Start Date End Date Unallocated, [place] [address] PCP - General Family Medicine 08/12/23 Accounting Lecturer Relationship Specialty Start Date End Date Unallocated, [place] [address] PCP - General Family Medicine 08/12/23 Accounting Lecturer Relationship Specialty Start Date End Date Unallocated, [place] [address] PCP - General Family Medicine 08/12/23 Accounting Lecturer Relationship Specialty Start Date End Date Unallocated, [place] [address] PCP - General Family Medicine 08/12/23 Accounting Lecturer Relationship Specialty Start Date End Date Unallocated, [place] [address] PCP - General Family Medicine 08/12/23 Accounting Lecturer Relationship Specialty Start Date End Date Unallocated, [place] [address] PCP - General Family Medicine 08/12/23 Accounting Lecturer Relationship Specialty Start Date End Date Unallocated, [place] [address] PCP - General Family Medicine 08/12/23 Accounting Lecturer Relationship Specialty Start Date End Date Unallocated, [place] [address] PCP - General Family Medicine 08/12/23 Accounting Lecturer Relationship Specialty Start Date End Date Unallocated, [place] [address] PCP - General Family Medicine 08/12/23 Goals [...] BE BASED ON THE PRIMARY CLINICAL RECORDS. [email or web address] [facility]. provides no warranty or guarantee of the accuracy or completeness of information in this document.
[2024-06-30 04:07] LABS: Transferrin 470 mg/dL (192-364)
== END 2024-06-29 10:18 | disposition home or self-care (01) ==
PROVIDERS: Visit Provider Physician Assistant
DX: E61.1 Iron deficiency (principal)
CPT/HCPCS: 36415; 82728; 84466

== ENCOUNTER 2024-07-06 08:38 | Outpatient (REF) | payer MEDICAID, SELFPAY | END 2024-07-06 08:39 | disposition home or self-care (01) | LOC: LAB 08:38 | PROVIDERS: Visit Provider Obstetrics & Gynecology | DX: Z34.93 Encounter for supervision of normal pregnancy, unspecified, third trimester (principal) | CPT/HCPCS: 36415; 87081 ==

== ENCOUNTER 2024-07-14 07:38 | Outpatient (RCR) | payer MEDICAID, SELFPAY ==
[2024-07-10 13:20] VITALS: BP 126/74; PULSE 103; TEMP 36.4; O2SAT 99
[2024-07-10] MEDS: IRON SUCROSE COMPLEX 100 MG in 0.9 % SODIUM CHLORIDE 100 ML 420 MG IV (13:44)
[2024-07-12 13:27] VITALS: BP 121/75; PULSE 84; TEMP 36.1; O2SAT 98
[2024-07-12] MEDS: IRON SUCROSE COMPLEX 200 MG in 0.9 % SODIUM CHLORIDE 100 ML 220 MG IV (13:50)
[2024-07-14 13:36] VITALS: BP 114/73; PULSE 107; TEMP 36.4; O2SAT 98
[2024-07-14] MEDS: IRON SUCROSE COMPLEX 200 MG in 0.9 % SODIUM CHLORIDE 100 ML 220 MG IV (13:55)
== END 2024-07-14 23:59 | disposition home or self-care (01) ==
LOC: INF 07:38
PROVIDERS: Visit Provider Obstetrics & Gynecology
DX: O99.019 Anemia complicating pregnancy, unspecified trimester (principal); D64.9 Anemia, unspecified; Z3A.00 Weeks of gestation of pregnancy not specified
CPT/HCPCS: 96365; J1756

== ENCOUNTER 2024-07-21 07:40 | Outpatient (RCR) | payer MEDICAID, SELFPAY ==
[2024-07-17 13:36] VITALS: BP 123/78; PULSE 110; TEMP 36.4; O2SAT 94
[2024-07-17] MEDS: IRON SUCROSE COMPLEX 100 MG in 0.9 % SODIUM CHLORIDE 100 ML 420 MG IV (13:50)
[2024-07-19 13:30] VITALS: BP 122/77; PULSE 78; TEMP 36.8; O2SAT 98
[2024-07-19] MEDS: IRON SUCROSE COMPLEX 200 MG in 0.9 % SODIUM CHLORIDE 100 ML 220 MG IV (13:48)
--- NOTE | 2024-07-19 14:35 | PC.NURSE ---
Pt rec'd iron infusion w/o incident. D/c'd stable.
[2024-07-21 13:30] VITALS: BP 118/68; PULSE 98; TEMP 36.6; O2SAT 98
[2024-07-21] MEDS: IRON SUCROSE COMPLEX 200 MG in 0.9 % SODIUM CHLORIDE 100 ML 220 MG IV (13:45)
== END 2024-08-11 23:59 | disposition home or self-care (01) ==
LOC: INF 07:40
PROVIDERS: Visit Provider Obstetrics & Gynecology
DX: O99.019 Anemia complicating pregnancy, unspecified trimester (principal); D64.9 Anemia, unspecified; Z3A.00 Weeks of gestation of pregnancy not specified
CPT/HCPCS: 96365; 96374; J1756

== ENCOUNTER 2024-08-01 15:56 | Inpatient (IN) | payer MEDICAID, SELFPAY ==
[2024-08-01] VITALS (12 sets, daily range): BP systolic 94–127; BP diastolic 50–72; PULSE 67–88; TEMP 36.1–36.7
--- OUTSIDE RECORDS SUMMARY | 2024-08-01 16:07 | XMS_ITS | CCD ---
Author Organization [facility] Care Team Providers Care Labor Standards Director Name Role Phone PROVIDER, UNKNOWN Attending Unavailable PROVIDER, UNKNOWN Referring Unavailable Balbina, PCP Primary Care Unavailable Joe Perez Primary Care Provider UnavailMICHAEL Staley Referring Unavailab JOE Asif Primary Care Unavailable MICHAEL SMALLS Referring Unavailab JOE Asif Primary Care Unavailable JOE PEREZ Primary Care Physician [phone] Maribel Randall Unavailable Amy Goodrich Unavailable CAITIE MARSHALL Primary Care Physician [phone] CAITIE MARSHALL Primary Care Physician MD Lucia Thorne Attending Provider Lucia Thorne Admitting Unavailable Lucia Thorne Attending Unavailable NON STAFF Primary Care Unavailable Amy Goodrich Attending Unavailable Amy Goodrich Admitting Unavailable Joe Perez Primary Care Unavailable Amy Goodrich Attending Unavailable Joe Perez Primary Care Unavailable Amy Goodrich Admitting Unavailable Maribel Randall Admitting Unavailable Maribel Randall Attending Unavailable [facility] Primary Care Unavaila ble Amy Goodrich Attending Unavailable Joe Perez Primary Care Unavailable Amy Goodrich Admitting Unavailable Amy Goodrich Attending Unavailable Joe Perez Primary Care Unavailable Amy Goodrich Admitting Unavailable PAY, DR MARCUS Admitting Unavailable PAY, DR MARCUS Attending Unavailable PAY, DR MARCUS Consulting Unavailable JOSE G, DR JOE Joseph Primary Care Unavailable MEDHAT PEREZ Consulting Unavailable JOSE G, DR JOE Joseph Primary Care Unavailable AMY GOODRICH JR Admitting Unavailable MIGUE, DR SUGAR Zhang Consulting Unavailable AMY GOODRICH JR Attending Unavailable AMY GOODRICH JR Consulting Unavailable JOSE G, DR JOE Joseph Consulting Unavailable JOSE G, DR JOE Joseph Primary Care Unavailable JOSE G, DR JOE Joseph Admitting Unavailable JOSE G, DR JEO Joseph Attending Unavailable MACARENA, DR TYLER Admitting Unavailable JOSE G, DR JOE Joseph Primary Care Unavailable HAY, DR TYLER Attending Unavailable HAY, DR TYLER Consulting Unavailable Unallocated MD, [facility] Provider Primary Care Provi fatuma Unallocated MD, Noms Provider Primary Care Provi fatuma KAYKAY, ELDON Attending Unavailable HARPAL, MARYCARMEN Attending Unavailable KAYKAY, ELDON Attending Unavailable HARPAL, MARYCARMEN Attending Unavailable AMBREEN DAN Attending Unavailable KAYKAY, ELDON Attending Unavailable HARPAL, MARYCARMEN Attending Unavailable HARPAL, MARYCARMEN Attending Unavailable KAYKAY, ELDON Attending Unavailable HARPAL, MARYCARMEN Attending Unavailable KAYKAY, ELDON Attending Unavailable KAYKAY, ELDON Attending Unavailable HARPAL, MARYCARMEN Attending Unavailable KAYKAY, ELDON Attending Unavailable Allergies Allergy Classification Reported Allergen(s) Allergy Type Date of Onset Reaction(s) Facility (20 sources) Contrast media; 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: [red dye] Drug allergy 7 [employer] Other (20 sources) Red Dye #40 (Allura Red) Allergy to substance 3 [facility] Work Phone: Medications Current Medications Medication Drug [...] 4-6 HOURS 6.7 March 08, 2024 12:00am cephalexin 500 mg oral capsule (6 sources) Cephalosporin Antibacterial Start: 07-06-2024 End: 07-13-2024 take 1 capsule by mouth in the morning cephalexin (Keflex) 500 MG capsule Indications: Ear infection Take 1 capsule (500 mg) by mouth in the morning and 1 capsule (500 mg) before bedtime. Do all this for 7 days. 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] Onset: 06-18-2022 Episodic Other circulatory [...] 10-19-2021 Episodic Other and delivery including normal (20 sources) Second trimester ; 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: [Encounter for supervision of normal , unspecified, second trimester] 03-16-2024 Episodic Other screening for suspected conditions (not mental disorders or infectious disease) (4 sources) Patient encounter status; 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: [Encounter for screening for diabetes mellitus] 04-17-2024 Episodic Other upper respiratory infections (3 sources) Acute upper respiratory infection, unspecified; 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: [Acute pharyngitis, unspecified] Onset: 08-10-2018 03-08-2024 Episodic Otitis media and related conditions (2 sources) Infection of ear; 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: [Otitis media, unspecified, unspecified ear] 07-06-2024 Episodic Residual codes; unclassified (2 sources) Gestation period, 20 weeks; 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: [20 weeks gestation of ] 03-16-2024 Episodic Residual codes; unclassified (2 sources) Gestation [...] [34 weeks gestation of ] 06-22-2024 Episodic Residual codes; unclassified (2 sources) Gestation period, 36 weeks; 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: [36 weeks gestation of ] 07-06-2024 Episodic Residual codes; unclassified (2 sources) Gestation period, 35 weeks; 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: [35 weeks gestation of ] 06-29-2024 Episodic Residual codes; unclassified (2 sources) Gestation period, 37 weeks; 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: [37 weeks gestation of ] 07-13-2024 Episodic Residual codes; unclassified (2 sources) Gestation period, 38 weeks; 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: [38 weeks gestation of ] 07-20-2024 Episodic Residual codes; unclassified (2 sources) Gestation period, 39 weeks; 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: [39 weeks gestation of ] 07-27-2024 Episodic Skin and subcutaneous tissue infections (1 [...] 04-08-2021 Resolved: 04-08-2021 Episodic Residual codes; unclassified (20 sources) Gestation period, 24 weeks; 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: [24 weeks gestation of ] Onset: 04-17-2024 04-17-2024 Episodic Residual codes; unclassified (2 sources) Gestation period, 17 weeks; 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: [17 weeks gestation of ] 02-17-2024 Episodic Results Test Name Value Interpretation Reference Range Facility Urinalysis macro (dipstick) panel (U)on 07-27-2024 Bilirubin, UA Negative Negative - 4(70) +++ mg/dL [facility] Blood, UA Negative Negative - 50 Erwin/mcL [facility] Clarity, UA Clear [facility] re Color, UA Yellow [facility] Glucose, UA Negative Negative - 1999(110) ++++ mg/dL [facility] Interpretation and review of laboratory results Normal [facility] Ketones, UA Negative Negative - 160(16) ++++ mg/dL [facility] Leukocytes, UA Negative Negative - 500+++ Kevin/mcL [facility] Nitrite, UA Negative Negative - Positive [facility] pH, UA 6.5 5 - 9 [facility] e Protein, UA Negative Negative - 1999(20) ++++ mg/dL [facility] Spec Grav, UA 1.025 1 - 1.03 [facility] Urobilinogen, UA 0.2 0.2 - 12 mg/dL [facility] Health[facility] e Urinalysis macro (dipstick) panel (U)on 07-13-2024 Bilirubin, UA Negative Negative - 4(70) +++ mg/dL [facility] Blood, UA Negative Negative - 50 Erwin/mcL [facility] Healthcare Clarity, UA Clear [facility] re Color, UA Yellow [facility] Glucose, UA Negative Negative - 1999(110) ++++ mg/dL [facility] Interpretation and review of laboratory results Normal [facility] Ketones, UA Negative Negative - 160(16) ++++ mg/dL [facility] Leukocytes, UA Negative Negative - 500+++ Kevin/mcL [facility] Nitrite, UA Negative Negative - Positive [facility] pH, UA 6.5 5 - 9 [facility] Health[facility] e Protein, UA Negative Negative - 2000(20) ++++ mg/dL [facility] Spec Grav, UA 1.015 1 - 1.03 [facility] Urobilinogen, UA 0.2 0.2 - 12 mg/dL [facility] ALL MISCELLANEOUS TESTon MISCELLANEOUS TEST COMMENT . [facility] ealthcare Comment on above: Test Ordered: [id number] Strep Gp B Culture+Rflx Strep Gp B Culture+Rflx Negative CB Reference Range: Negative Centers for Disease Control and Prevention (CDC) and [place] [employer] of [employer]stetricians and Gynecologists (ACOG) guidelines for prevention of group B streptococcal (GBS) disease specify co-collection of a vaginal and rectal swab specimen to maximize sensitivity of GBS detection. Per the CDC and ACOG, swabbing both the lower vagina and rectum substantially increases the yield of detection compared with sampling the vagina alone. Penicillin G, ampicillin, or cefazolin are indicated for intrapartum prophylaxis of GBS colonization. Reflex susceptibility testing should be performed prior to use of clindamycin only on GBS isolates from penicillin- allergic women who are considered a high risk for anaphylaxis. Treatment with vancomycin without additional testing is warranted if resistance to clindamycin is noted. Performed at: [address] [id number] Transformer Assembly Supervisor: Mayito Shearer PhD, Phone: [phone] GROUP B STREP [id number] Group B Streptococcus Colonization Detection Culture With Re [facility] Health[facility] e US OB FOLLOW UP TRANSABDOMIN AL APPROACHon 07-06-2024 US OB FOLLOW UP TRANSABDOMINAL APPROACH TITLE OF EXAM: OB Ultrasound: REASON FOR EXAM: Growth COMPARISON: None TECHNIQUE: Grayscale and M-mode Doppler imaging is performed. FINDINGS: heart rate: 150 bpm MARIA E: 11.7 cm (7.7-24.8) BPD: 8.8 cm HC: 31.8 cm AC: 32.7 cm FL: 7.1 cm GA for sonogram: 35.7 wk (33.2-38.1) [place] WYATT: 2024 Weight Estimate: Weight: 2896 gm / 6 lbs, 6 oz (2022-7143 gm) [place] Normal: 2844 gm (9362-6366 gm) [place] Wt%: 56% for 36.1 wks Limited for: Growth Presentation: Cephalic Amniotic Fluid: 11.7 cm Between 5th and 95 percentile. Largest Fluid Pocket: 5.4 cm Heart Rate: 150 bpm Somatic Motion: Yes IMPRESSION: Limited survey shows a single viable intrauterine in cephalic position with an estimated ultrasound age of 36 weeks. Dictated and transcribed 07/06/24/dpd This report has been electronically signed and approved by the interpreting radiologist. Normal Not Available Comment on above: Order Comment: US OB SCAN FOR GROWTH Estimated Date of Delivery: 08/02/24 Gestational Age as of 06/08/2024: 36w0d Urinalysis macro (dipstick) panel (U)on 07-06-2024 Bilirubin, UA Negative Negative - 4(70) +++ mg/dL [facility] Blood, UA Positive Negative - 50 Erwin/mcL [facility] Clarity, UA Clear [facility] Health[facility] re Color, UA Yellow [facility] e Glucose, UA Negative Negative - 1999(110) ++++ mg/dL [facility] Interpretation and review of laboratory results Abnormal [facility] Ketones, UA Negative Negative - 160(16) ++++ mg/dL [facility] Leukocytes, UA Negative Negative - 500+++ Kevin/mcL [facility] Nitrite, UA Negative Negative - Positive [facility] pH, UA 7.5 5 - 9 [facility] e Protein, UA Many Negative - 2000(20) ++++ mg/dL [facility] Spec Grav, UA 1.03 1 - 1.03 [facility] Urobilinogen, UA 1.0 0.2 - 12 mg/dL [facility] FERRITINon 06-29-2024 Ferritin [Mass/Vol] 5 ng/mL Low 8.0 - 25 2.0 ng/mL [facility] Interpretation and review of laboratory results Abnormal [facility] Health[facility] e Urinalysis macro (dipstick) panel (U)on 06-29-2024 Bilirubin, UA Negative Negative - 4(70) +++ mg/dL [facility] Blood, UA Negative Negative - 50 Erwin/mcL [facility] Healthcare Clarity, UA Clear [facility] re Color, UA Yellow [facility] Glucose, UA Negative Negative - 1999(110) ++++ mg/dL [facility] Interpretation and review of laboratory results Normal [facility] Ketones, UA Negative Negative - 160(16) ++++ mg/dL [facility] Leukocytes, UA Negative Negative - 500+++ Kevin/mcL [facility] Nitrite, UA Negative Negative - Positive [facility] pH, UA 5 5 - 9 [facility], UA Positive Negative - 1999(20) ++++ mg/dL [facility] Spec Grav, UA 1.02 1 - 1.03 [facility] Urobilinogen, UA 1.0 0.2 - 12 mg/dL [facility] Health[facility] e ALL CBC WITH AUTO DIFFon BASOPHILS ABSOLUTE AUTO 0 [facility] Basophils/100 WBC (Bld) 0.2 % 0.2 - 2.0 % [facility] Eosinophils/100 WBC (Bld) 0.6 % Low 0.9 - 7.0 % [facility] Erythrocyte distribution width (RBC) [Ratio] 13.5 % 11.0 - 15.0 % [facility] Hematocrit (Bld) [Volume fraction] 27 % Low 36.0 - 48.0 % [facility] Hemoglobin (Bld) [Mass/Vol] 8.3 g/dL Low 12.0 - 16.0 g/dL [facility] IMMATURE GRANULOCYTES ABS AUTO 0.1 High [facility] Immature granulocytes/100 WBC (Bld) 1 % High 0.0 - 0.5 % [facility] Interpretation and review of laboratory results Abnormal [facility] LYMPHOCYTES ABSOLUTE AUTO 2.1 [facility] Lymphocytes/100 WBC (Bld) 22.1 % 20.5 - 60.0 % [facility] MCH (RBC) [Entitic mass] 25.5 pg Low 26.7 - 34.0 pg [facility] MCHC (RBC) [Mass/Vol] 30.7 g/dL 29.9 - 35.2 g/dL [facility] MCV (RBC) [Entitic vol] 82.8 fL 81.0 - 99.0 fL [facility] MONOCYTES ABSOLUTE AUTO 0.8 [facility] Monocytes/100 WBC (Bld) 8.5 % 1.7 - 12.0 % [facility] NEUTROPHILS ABSOLUTE AUTO 6.4 [facility] Neutrophils/100 WBC (Bld) 67.6 % 43.0 - 75.0 % [facility] Platelet mean volume (Bld) [Entitic vol] 9.1 fL Low 9.5 - 13.5 fL [facility] TBH EO # 0.1 [facility] e [facility] RBC 3.26 Low [facility] TB WBC 9.5 [facility] Health[facility] e Urinalysis macro (dipstick) panel (U)on 06-22-2024 Bilirubin, UA Negative Negative - 4(70) +++ mg/dL [facility] Blood, UA Negative Negative - 50 Erwin/mcL [facility] Healthcare Clarity, UA Clear [facility] re Color, UA Yellow [facility] e Glucose, UA Negative Negative - 1999(110) ++++ mg/dL [facility] Interpretation and review of laboratory results Abnormal [facility] Ketones, UA Negative Negative - 160(16) ++++ mg/dL [facility] Leukocytes, UA Negative Negative - 500+++ Kevin/mcL [facility] Healthcare Nitrite, UA Negative Negative - Positive [facility] pH, UA 6.5 5 - 9 [facility] Health[facility] e Protein, UA Trace Negative - 1999(20) ++++ mg/dL [facility] Healthcare Spec Grav, UA 1.025 1 - 1.03 [facility] Urobilinogen, UA 0.2 0.2 - 12 mg/dL [facility] e Urinalysis macro (dipstick) panel (U)on 06-08-2024 Bilirubin, UA Negative Negative - 4(70) +++ mg/dL [facility] Blood, UA Negative Negative - 50 Erwin/mcL [facility] Healthcare Clarity, UA Clear [facility] Health[facility] re Color, UA Yellow [facility] e Glucose, UA Negative Negative - 1999(110) ++++ mg/dL [facility] Interpretation and review of laboratory results Normal [facility] Ketones, UA Negative Negative - 160(16) ++++ mg/dL [facility] Leukocytes, UA Negative Negative - 500+++ Kevin/mcL [facility] Healthcare Nitrite, UA Negative Negative - Positive [facility] pH, UA 6 5 - 9 [facility] Healthcar e Protein, UA Negative Negative - 1999(20) ++++ mg/dL [facility] Spec Grav, UA 1.025 1 - 1.03 [facility] Urobilinogen, UA 0.2 0.2 - 12 mg/dL [facility] MLR HEMOGLOBIN A1Con 024 Glucose [Mass/Vol] 111 mg/dL [facility] HbA1c (Bld) [Mass fraction] 5.5 % 4.5 - 6.2 % [facility] Comment on above: ADA RECOMMENDED LIMI T 4.0 - 6.0 ADA THERAPEUTIC TARGET < 7.0 ACTION SUGGESTED > 7.0 [facility] Urinalysis macro (dipstick) panel (U)on 05-24-2024 Bilirubin, UA Negative Negative - 4(70) +++ mg/dL [facility] Blood, UA Negative Negative - 50 Erwin/mcL [facility] Clarity, UA Clear [facility] re Color, UA Yellow [facility] Health[facility] e Glucose, UA Negative Negative - 1999(110) ++++ mg/dL [facility] Interpretation and review of laboratory results Abnormal [facility] Ketones, UA Negative Negative - 160(16) ++++ mg/dL [facility] Leukocytes, UA Negative Negative - 500+++ Kevin/mcL [facility] Nitrite, UA Negative Negative - Positive [facility] pH, UA 6.5 5 - 9 [facility] Health[facility] e Protein, UA Many Negative - 1999(20) ++++ mg/dL [facility] Spec Grav, UA 1.025 1 - 1.03 [facility] Urobilinogen, UA 1.0 0.2 - 12 mg/dL [facility] ALL TYPE AND SCREENon 2023 ABO and Rh group Nom (Bld) Blood group A Rh(D) negative [facility] , [facility] Urinalysis macro (dipstick) panel (U)on 05-08-2024 Bilirubin, UA Negative Negative - 4(70) +++ mg/dL [facility] Blood, UA Negative Negative - 50 Erwin/mcL [facility] Clarity, UA Clear [facility] re Color, UA Yellow [facility] Health[facility] e Glucose, UA Negative Negative - 1999(110) ++++ mg/dL [facility] Interpretation and review of laboratory results Normal [facility] Ketones, UA Negative Negative - 160(16) ++++ mg/dL [facility] Healthcare Leukocytes, UA Negative Negative - 500+++ Kevin/mcL [facility] Healthcare Nitrite, UA Negative Negative - Positive [facility] Healthcare pH, UA 6 5 - 9 [facility] Protein, UA Negative Negative - 1999(20) ++++ mg/dL [facility] Healthcare Spec Grav, UA 1.02 1 - 1.03 [facility] care Urobilinogen, UA 1.0 0.2 - 12 mg/dL [facility] Urinalysis macro (dipstick) panel (U)on 04-17-2024 Bilirubin, UA Negative Negative - 4(70) +++ mg/dL [facility] Blood, UA Negative Negative - 50 Erwin/mcL [facility] Healthcare Clarity, UA Clear [facility] re Color, UA Yellow [facility] Glucose, UA Negative Negative - 1999(110) ++++ mg/dL [facility] Interpretation and review of laboratory results Normal [facility] Ketones, UA Negative Negative - 160(16) ++++ mg/dL [facility] Leukocytes, UA Negative Negative - 500+++ Kevin/mcL [facility] Healthcare Nitrite, UA Negative Negative - Positive [facility] pH, UA 6 5 - 9 [facility] Protein, UA Negative Negative - 1999(20) ++++ mg/dL [facility] Spec Grav, UA 1.02 1 - 1.03 [facility] care Urobilinogen, UA 0.2 0.2 - 12 mg/dL [facility] Urinalysis macro (dipstick) panel (U)on 03-16-2024 Bilirubin, UA Negative Negative - 4(70) +++ mg/dL [facility] Blood, UA Negative Negative - 50 Erwin/mcL [facility] Healthcare Clarity, UA Clear [facility] Color, UA Yellow [facility] Glucose, UA Negative Negative - 1999(110) ++++ mg/dL [facility] Interpretation and review of laboratory results Normal [facility] Healthcare Ketones, UA Negative Negative - 160(16) ++++ mg/dL [facility] Healthcare Leukocytes, UA Negative Negative - 500+++ Kevin/mcL [facility] Nitrite, UA Negative Negative - Positive [facility] pH, UA 5.5 5 - 9 [facility] Protein, UA Negative Negative - 2000(20) ++++ mg/dL [facility] Spec Grav, UA 1.020 1 - 1.03 [facility] Urobilinogen, UA 1.0 0.2 - 12 mg/dL [facility] No Panel InformationOrdered By: Shanice Bustamante on 03-08-2024 Quick Strep (POC) [facility] AFP, SERUM, OPEN SPINA BIFID Aon 02-19-2024 AFP MOM 0.63 . [facility] Health[facility] e AFP VALUE 26.1 ng/mL . [facility] COMMENT: Comment . [facility] Health[facility] Comment on above: So Carcamo , Ph.D., [facility] Director References: Available Upon Request. Multiples Of Median Cutoffs For AFP Elevations Barajas 2.5 Black 2.8 IDD 2.0 Twins 4.5 Abbreviation Definitions IDD - Insulin Dep Diabetes OSBR - Open Spina Bifida Risk For further inquiries contact [employer] [facility] at [phone]. This test was developed and its performance characteristics determined by [employer]. It has not been cleared or approved by the Food and Drug Administration. Performed at: [facility] [place], [place] [id number] Transformer Assembly Supervisor: Marci Lewis [facility], Phone: [phone] GEST. AGE ON COLLECTION DATE 17.6 . weeks [facility] GESTAT. AGE BASED ON LMP . [facility] Comment on above: Recalculations are n ot recommended when gestational dating by LMP and ultrasound are within 10 days. INSULIN DEP DIABETES No . [facility] Healthcare INTERPRETATION Comment . [facility] Healt hcare Comment on above: Interpretation: Scre [...] [age]YATT [age] [facility] MULTIPLE GESTATION No . [facility] H ealthcare [place] [address] [place] [id number] . [facility] . [facility] RESULTS Report . [facility] TEST RESULTS: Negative . [facility] WEIGHT 147 . lbs [facility] N N LMP [phone] N 1 Y 147 N N N N N White/ [facility] e URETHRITIS/DISCHARGE PLUS VA GINITIS (HTRX)on 02-19-2024 ATOPOBIUM VAGINAE 15.349 Abnormal [facility] ATOPOBIUM VAGINAE Detected Abnormal [facility] BVAB 2,3 (BACTERIAL VAGINOSIS ASSOCIATED BACTERIA 2, 3); MOBILUNCUS SPP 0.000 [facility] BVAB 2,3 (BACTERIAL VAGINOSIS ASSOCIATED BACTERIA 2, 3); MOBILUNCUS SPP Not detected [facility] ALLAN ALBICANS, PARAPSILOSIS, TROPICALIS 0.000 [facility] ALLAN ALBICANS, PARAPSILOSIS, TROPICALIS Not detected [facility] ALLAN GLABRATA 0.000 [facility] ALLAN GLABRATA Not detected [facility] ealthcare ALLAN KRUSEI 0.000 [facility] ALLAN KRUSEI Not detected Merged with [facility] CHLAMYDIA TRACHOMATIS 0.000 [facility] CHLAMYDIA TRACHOMATIS Not detected N [facility] ERMB, C; MEFA 18.780 Abnormal [facility] care ERMB, C; MEFA Detected Abnormal [facility] GARDNERELLA VAGINALIS 16.918 Abnormal [facility] GARDNERELLA VAGINALIS Detected Abnormal [facility] Interpretation and review of laboratory results Abnormal [facility] MEGASPHAERA (TYPES 1, 2) 0.000 [facility] MEGASPHAERA (TYPES 1, 2) Not detected [facility] MYCOPLASMA GENITALIUM 0.000 [facility] MYCOPLASMA GENITALIUM Not detected N [facility] NEISSERIA GONORRHOEAE 0.000 [facility] NEISSERIA GONORRHOEAE Not detected N [facility] TET B, TET M 18.993 Abnormal [facility] are TET B, TET M Detected Abnormal [facility] are TRICHOMONAS VAGINALIS 0.000 [facility] TRICHOMONAS VAGINALIS Not detected N [facility] e Urinalysis macro (dipstick) panel (U)on 02-17-2024 Bilirubin, UA Negative Negative - 4(70) +++ mg/dL [facility] Blood, UA Positive Negative - 50 Erwin/mcL [facility] Comment on above: trace-intact Clarity, UA Clear [facility] re Color, UA Yellow [facility] e Glucose, UA Negative Negative - 1999(110) ++++ mg/dL [facility] Interpretation and review of laboratory results Abnormal [facility] Ketones, UA Negative Negative - 160(16) ++++ mg/dL [facility] Leukocytes, UA Positive Negative - 500+++ Kevin/mcL [facility] Comment on above: moderate Nitrite, UA Negative Negative - Positive [facility] pH, UA 7.0 5 - 9 [facility] e Protein, UA Negative Negative - 1999(20) ++++ mg/dL [facility] Spec Grav, UA 1.030 1 - 1.03 [facility] Urobilinogen, UA 0.2 0.2 - 12 mg/dL [facility] e CULTURE URINEon 07-12-2022 CULTURE URINE Isolate [...] F Tetracycline >=16 R F Normal [facility] Comment on above: Performed By: #### U RCX #### [facility] [address] [place] [address] Dr. Venancio Soriano ER URINE PROFILEon 3 Bilirubin Ql (U) Negative Normal NEGATIVE The [facility] Comment on above: Performed By: #### U MICRO, PREGU, ERUR #### [facility] [address] [place] [address] Dr. Venancio Soriano Clarity (U) CLEAR Normal CLEAR [facility] Comment on above: Performed By: #### U MICRO, PREGU, ERUR #### [facility] [address] [place] [address] Dr. Venancio Soriano Color (U) LT. YELLOW Normal YELLOW [facility] Comment on above: Performed By: #### U MICRO, PREGU, ERUR #### [facility] [address] [address] [address] Venancio FREEMAN A micrscopic examination will be performed if indicated. Normal [facility] Comment on above: Performed By: #### U MICRO, PREGU, ERUR #### [facility] [address] [address] [address] Venancio Soriano Glucose Ql (U) Negative Normal NEGATIVE [facility] Comment on above: Performed By: #### U MICRO, PREGU, ERUR #### [facility] [address] [address] [address] Venancio Soriano Hemoglobin Ql (U) TRACE-INTACT Abnormal NEGATIVE [facility] Comment on above: Performed By: #### U MICRO, PREGU, ERUR #### [facility] [address] [address] [address] Venancio Soriano Ketones Ql (U) Negative Normal NEGATIVE [facility] Comment on above: Performed By: #### U MICRO, PREGU, ERUR #### [facility] [address] [address] [address] Venancio Soriano LEUKOCYTES SMALL Abnormal NEGATIVE [facility] Comment on above: Performed By: #### U MICRO, PREGU, ERUR #### [facility] [address] [address] [address] Venancio Soriano Nitrite Ql (U) Negative Normal NEGATIVE [facility] Comment on above: Performed By: #### U MICRO, PREGU, ERUR #### [facility] [address] [address] [address] Venancio Soriano pH (U) 6.0 [pH] Normal 5-9 [facility] Comment on above: Performed By: #### U MICRO, PREGU, ERUR #### [facility] [address] [address] [address] Venancio Soriano SPEC GRAVITY 1.025 Normal 1.005-<=1.02 5 [facility] Comment on above: Performed By: #### U MICRO, PREGU, ERUR #### [facility] [address] [address] [address] Venancio Soriano UA PROTEIN Negative Normal NEGATIVE/ TRACE [facility] Comment on above: Performed By: #### U MICRO, PREGU, ERUR #### [facility] [address] [address] [address] Venancio Soriano UR MICRO IND INDICATED Normal [facility] Comment on above: Performed By: #### U MICRO, PREGU, ERUR #### [facility] [address] [address] [address] Venancio Soriano Urobilinogen Qn (U) 0.2 {Erick'U}/dL Normal 0.2 - 1. [address] [facility] Comment on above: Performed By: #### U MICRO, PREGU, ERUR #### [facility] [address] [place] [address] Dr. Venancio Soriano URon 07-10-2022 , QUAL Negative Normal NEGATIVE [facility] Comment on above: Performed By: #### U MICRO, PREGU, ERUR #### [facility] [address] [address] [address] Venancio Soriano URINE MICROSCOPIC ONLYon BACTERIA TRACE Abnormal NONE SEEN [facility] Comment on above: Performed By: #### U MICRO, PREGU, ERUR #### [facility] [address] [address] [address] Venancio Soriano Bacteria identified Cx Nom (U) INDICATED Normal [facility] Comment on above: Performed By: #### U MICRO, PREGU, ERUR #### [facility] [address] [address] [address] Venancio Soriano CAST NONE SEEN Normal NONE SEEN [facility] Comment on above: Performed By: #### U MICRO, PREGU, ERUR #### [facility] [address] [address] [address] Venancio Soriano Crystals LM Nom (Urine sed) NONE SEEN Normal NONE SEEN [facility] Comment on above: Performed By: #### U MICRO, PREGU, ERUR #### [facility] [address] [address] [address] Venancio Soriano Epithelial cells LM Ql (Urine sed) RARE Normal NONE SEEN /RARE [facility] Comment on above: Performed By: #### U MICRO, PREGU, ERUR #### [facility] [address] [address] [address] Venancio Soriano MUCOUS NONE SEEN Normal NONE SEEN [facility] Comment on above: Performed By: #### U MICRO, PREGU, ERUR #### [facility] [address] [address] [address] Venancio Soriano RBC 0-2 Normal 0-2 [facility] Comment on above: Performed By: #### U MICRO, PREGU, ERUR #### [facility] [address] [address] [address] Venancio Soriano WBC 5-10 Abnormal NONE SEEN [facility] Comment on above: Performed By: #### U MICRO, PREGU, ERUR #### [facility] [address] [address] [address] Venancio Soriano Urine Cultureon 03-02-2022 Bacteria identified Cx Nom (U) Reason for Exam Dysuria Urine No Growth 2 Days PERFORMED BY: [place] [address] PATHOLOGIST [employer] EDDIE CORTÉS M.D. Normal [facility] Comment on above: Performed By: #### V AGINITIS+ #### [facility] , #### CUU #### [facility] [address] [place] [address] Vaginitis Plus (VG+)on 03-02 Atopobium Vaginae Moderate - 1 Normal . [facility] Comment on above: Order Comment: Reaso n for Exam Vaginal odor Performed By: #### V AGINITIS+ #### [facility] , #### CUU #### [facility] [address] [place] [address] [place] BVAB2 Low - 0 Normal . [facility] Comment on above: Order Comment: Reaso n for Exam Vaginal odor Performed By: #### V AGINITIS+ #### [facility] , #### CUU #### [address] Allan Albicans, YUNIOR Negative Normal Negative [facility] Comment on above: Order Comment: Reaso n for Exam Vaginal odor Result Comment: This test was developed and its performance characteristics determined by [facility]. It has not been cleared or approved by the Food and Drug Administration. Performed By: #### V AGINITIS+ #### [facility] , #### CUU #### [address] Allan [place], YUNIOR Negative Normal Negative [facility] Comment on above: Order Comment: Reaso n for Exam Vaginal odor Result Comment: This test was developed and its performance characteristics determined by [facility]. It has not been cleared or approved by the Food and Drug Administration. PERFORMED BY: [place] [address] PATHOLOGIST [employer] EDDIE CORTÉS M.D. Performed By: #### V AGINITIS+ #### [facility] , #### CUU #### [address] Chlamydia Trachomotis, YUNIOR Negative Normal Negative [facility] Comment on above: Order Comment: Reaso n for Exam Vaginal odor Performed By: #### V AGINITIS+ #### [facility] , #### CUU #### [facility] [address] [place] [address] [place] Megasphaera Low - 0 Normal . [...] AGINITIS+ #### [facility] , #### CUU #### [facility] [address] [place] [address] Neisseria Gonorrhoeae, YUNIOR Negative Normal Negative [facility] Comment on above: Order Comment: Reaso n for Exam Vaginal odor Result Comment: Perf ormed at: =G - [facility] [address] [id number] [employer] Supervisor: Kim Anderson MD, Phone: [phone] Performed By: #### V AGINITIS+ #### [facility] , #### CUU #### [facility] [address] [place] [address] Tric Vag YUNIOR Negative Normal Negative [facility] Comment on above: Order Comment: Reaso n for Exam Vaginal odor Performed By: #### V AGINITIS+ #### [facility] , #### CUU #### [facility] [address] [place] [address] Coding Summary.on 02-17-2022 Coding Summary. [id number] Gh0bWw+PGhlYWQ+PE1FV MAaJ63xvUCbzI7OP8vTM G8CMERYUBRORF1POL7qb IF2LGcoO2NkceGi IwjemQCgTG96AJd6JGP4 sGxiRDhmcN4hiLToP6e4 RvSeDE59jK57FLmoQKDb WjV4CyXwummlbPMw B7wjXeQanCGzHgx+PHRh YmxlIHdpZHRoPScxMDAl QdBqpLzaTQ4yRf5kDURc LWNvbGxhcHNlOiBj j9waIHAsCPjkZV3uiOsf N6FnmBC9VOErl7r3Ki94 dHI+KLOpPRQ7hZabHUmo x853JiZeb6cnTDO1 lXHsQTauMXV1W79yc6B2 FDKkSTZkVJN5hWQ1iY7t aFxepsffW3JklBFaThQ3 ACP5cUNjwR4ybEod vzyfrB3pMun+J73VXE9R IHZUQL2SAtv2A8SsUrnu dHI+UX72QOYvFI28gEMm kLNui7dkpFi9ElTf OOLyBDL9jGsbGDnuu9Mj DWJdS67gmSBaq5W0RGTa hDridEQjRvKxaWB3hU6p MGssmfuvl9gajxbq Beaes3oroj08kL04M17f HNdcPZMmDAA4RFMcCGYt hOuhfg0qsD3jAl9+IDxj w0bdl9ezoLp8NwMy NXYsfdYxrUheDHF7n2Yi Yv79U8CopMyux5TrGvo2 fl97kBSfi2E3vHV6LVrq LVXcwM9aSEycAbM4 MBWbBtJikG12xPVmMKew Vg5utAbmzAogIT6oJKKm uttyHOWddE1tNTEkpCAd sKgwPQ9tHLGrykmw g464JpSiPVJ1GSDiuAVd Z2CraS7yMwGsICXeAODd M9UzyYPtFYqgX096NIuu DaN6UBKgywAaZ2Zj QBSjwTnwOgK5u8N6Ej9Z b3BaohzdQQC9XOyzPVK5 PdC0EvBsErY2M3XfRsw3 TEJrsWidTZ5rT3Ua GDWxzdrtntdllAC5YVAq ZKOedD05cMXgIRfbNg1r j0U7o621OYAqBRSdsF89 Zo4ntRusDFOkcAKU oI6hvqkcr3btawosQoWx IYJlGIr3YOy3ZLQesVpc TeMjXTV0GmU9BCQ0fOCn aU2tfLsrtqoynZ1r Oyc+T71emW8vHKB5NEA7 cussYJMzhfPdPF31XU90 Y7GyEsaosJTraLA+PGRp cnZgtBadBC7oMyPs k4tbo5OpJJkvL7DmCQUu TQlcLkr8PJMpRNU2kRJ3 zO8gYSNfBEkai3T4cMF2 B8TewvRhrl4cj8xc BDIgAYcjU37fbIFwc4G7 QDCchDQ0XTQjzBgjTmLo jF97Ubs+PBYooPgxp5Lw Ajolj6efz9dblQv7 IjMwJSIgdmFsaWduPSJ0 p7LnVq21B89rJZxiVJGw JQVvNCHhISLvvCpony6o dR5uAj5+PGNvbCB3 gHH3uO2pKUPdCiD8ACpy G902LoYstCJnAncav1ih a5qfrId3CvTbCHMruaIz dUolVYK5l2HwBg97 Q39kPFetCQVdNUUyYQUf ZTIlqKumaj7nsQ2vMw8+ QK8nr4hqzc39cS54eZW+ GOHnAQZ7gAvaTNsf OZRltR1jZFvwRtQ4CNEr OxAivV21hREpTCieCc3s hNodkCiyJN7mPNMxgstu m436DfGuq4duNTGf cXUtCHgiZJG1N22vd2F2 NJMcVUIsQPE3mGE3cP1f bGlnbjogbGVmdDsgdmVy cCarNHyqJGcxG510 IHRvcDsnPlBhdGllbnQg SvSsTPx6Z3IcJsu5LQIr nBcsSV5anHHrTDxcGo2k iVxdnPxbVK3gBSJq lqztr614KrUxv6qsWUJs tFSeOTkfEXE2O95qt5J9 HMJeILReVHP6lMU7pD2z bGlnbjogbGVmdDsg kxFxlBivUOmsDAjkZ190 IHRvcDsnPkJpcnRoIERh hTU5ZQ74OO56vIRfz3R9 zVX9N9DdSEQmbuww uqmylAF4EBXcBUDisD76 Lk3anAsyPd4kUZVqVXM6 IOCewQQmS5ZyqC0mNeGw NAYePXKqB1EkqQTu DOjsE056FKehMlR5OPZk jnEzR2LuRJXcrJflNzO2 w2C3Sc2YZ9M0AS10JB47 vXHgm0O9fPW6J3So TLLeupxgfbezeAY8LJPc VMRzaX10By5gyZgrDf4b RWUtAOS4FOXpsWLlS9Lx fQ4qGsIgAAPsBCVw P1ComCWmSOejS552XIci OcW8XJIlybXpY9MvBFYa vYdnGyA4p2A2Lb6BHCc8 KZ45HE78qRFas4A4 qVK9E4IsNUGokobyxudb rGM9KVDmZHFspP94He9o hLupAv6iSPBvJTE7ECKm dNAgC1RumJ4wSeNy RRMzZOChA2LtdZSuTVbr N373NPszLyV0NNBcwaBp O3MlWMFmmBcmNiE5j2O3 Pq6MRLEvVK30MFS9 cAW1XS91MB00Y0NwRawc dGFibGU+PHRhYmxlIHdp ZHRoPScxMDAlJyBzdHls NX3cBu7cOKYlOIQd tVmhuZPrMmXpz3xbYYGz FZkgNZ2hpNrgT3IcgAA4 UJKfi7o7Do57Z65qV8Ps dXA+EUHqqZR0vET0 xY0iIlQdAwJ5HMzzO899 KfLykMIqLltkc0rhq7qv lSa1SjJ7XZTpuuHfxHlu XJS4q2VnPo99I99o IHdpZHRoPSIxNSUiIHZh nNmnsr0buK1pBj6+PGNv oLW3bSZ2hO6jFhRwMwC6 QMqtM613TuBkwHSq Vnusa9ohd9yxwKu0HhJx RKJuklXfvFkkEIN0m5Bj Pj30G6SdeWqtf5KsFhi1 pr64tGNyx1G3kDB3 L5TjCIGzxwfznYKlfYyt IX4tUNLfnwahRSIoqY3i ROKqZ0x1OgTwVeK5IXsa C0AfudY6JWXivONl EHqzGGX5A75sz5Y7IFPa MEVgVCW3gUE4sT2nyPqc bjogbGVmdDsgdmVydGlj LRzvTNzzJ437XZRq zBuaRNVjgF5sKDKvkBRv rAlxBJ2pXEBsvofzDbLM CLnEJWanS2VSTDpTWbrM XL85UB73bPJjc3C1 qZO8Q7TwDOEbtlknhvnl pOC4KZVrHBZtsY93iNJi WSqpCf8ms5Z6n005FSZh LQLopI65Vm5hjWeg LIFwnAZVdR0xfzlff1ph hmdwXqDjPYWbHQk0VXd2 ZTQkfBvuMvNtOSZ3DtP3 QJK4vSIjrH9daNzb vxfcvV6lFqz+MDIvMTkv MjAwMzwvdGQ+PHRkIHN0 sSzdBDeoECDiqH6jUDTx K3z3TqQpKrR7HFyd G6MmPNHcxewjRy78zV8m ZeMdSxC9ZMkqC5GmvaD6 JXBrqQWjRRwqUFG7P56h d1D4CYJjEXYqKLN9 rKO9rN2kdUgnjgxkqQWp dDsgdmVydGljYWwtYWxp O764MIWhtPxeWqL1UNyt EBEgWN50KU96wXRn a9B3zKV3M9CzHGYrxkgs kojvrXQ8DLEbWUWznH01 cNYpUDxmQc7du9N8z409 GAGjRYDwzY83Sy5t sLlrYMHpaDQQgH4ewhfz z0obyfsaDfYlYGSaZWr6 ORm9FHVozBffXsDsPTG3 NkT9UYV4fRHwzL4q mXniaekspS5lOoh+RmVt PQqeEC94AM51iIRcm3D8 jBG5Y9HnKCAmlsqaptji wED1LNBvUESeeL35 rXGvACztIu4la2U5q980 XSDrTYIpgN86Ab0nwEbc DOZwfAWSxA7hxgeye8xq cjogIzAwMDAwMDt0 TCs2YLIpaJepCrHhLMK3 EuG9YQO6kNPbjU4vrNjh fbppzA1pAdo+MA8ljeae pcR4OI16PY94O6Av PjwvdGFibGU+PHRhYmxl IHdpZHRoPScxMDAlJyBz pLsxCN5sUv5iVIQnZLPx uZixsTOuDzEio8pe NVIpADryIV2eiUbaM9Qc yHS8TFHyi4d7Vv41S42w R1IqsSV+SSWdmJH1hZJ1 bV8bDtLyNkF2LGkc H600KwBplPKtTyrxh5wf w4xvcUj6EgPxLLJtjkXq vOnsFHL8m4CzKq01T34z IHdpZHRoPSIyMCUi TTVtsPeqmb1rnD0oLs1+ DZNhxGO5iRP6wY2rQgPr FxW5WKtyS023HcAecNJy BakzW73oN9VusWH+ GXEyYzd3GUHlmPhkJF7i cBBbAHlxXu7nCOB0OtIk OoDaDWhrU1GiUTQbfzni peouvAE0USStDUGy iW04Ss8udLtnOw8lMBCr TUZ0DZNyrDXlU2NivS0p KtZoDRBhXSGyA2LmvIZx QHnfL581JKtrQqN4 BENmvyUiI3SoWGEqcFzy HwM7f9H1Mm5DtCuvwDZb MO9vMhBzNBo5J9NiHpg7 UDFxdXutJG3hcWYw GZwbPw7bfQuoxNczLY7t TCBlzvsnl754TlQlz2xy XMIvkPMaWFnbHNZ5C12r h4B4LFMdFYNxYYP8 pQD4xR6txBmpiunncRCs dDsgdmVydGljYWwtYWxp Y258SICjhAdrGpKGPob2 S6GwFtb3KJNyoAav RL1ysDQbCFthCs3ljJrf yWruSC9jXIYghfdmp941 QrXip4djHOHajWWuCNcv UZC4C04jr5K4MFBk GRKgXLO0hEG5eN6uyUka bjogbGVmdDsgdmVydGlj XSkjKKhqW719GIApqMnc As5JKgj2I6OqHsp6 IQLoyXzcPP7mrGVaQPdg Sq5rhDgbkGswBF8tMWTg kfwbi477PgMzb6tfIRNv yJAyAItjJWP9U71d v3U8ALYgOTGdTRM5tFR9 fZ1fpPkxbkavpYBdrRuh naQbrEflZZazGNzvY966 IHRvcDsnPlBheWVy OjwvdGQ+YL87mu39S6Xo GxicArk1KOSrNEN1cSE3 yC6tKINdZMgua2H6fQU9 V4ItztNkan2uc1oh YXBz (more content not included)... Normal [facility] Auto Diffon 02-13-2022 Basophils/100 WBC (Bld) 0.9 % Normal 0.0-2.0 [facility] Comment on above: Order Comment: Order Added by Discern Expert. Performed By: #### 2 446618, 3151486, 17381981, 0380042, [id number] ####[address] [place] [address] Basophils/Leukocytes Auto (Bld) [Pure # fraction] 0.1 E9/L Normal 0.0-0.2 [facility] Comment on above: Order Comment: Order Added by Discern Expert. Performed By: #### 2 774597, 3765397, 21108753, 3365607, [id number] ####[address] [address] Eosinophils/100 WBC (Bld) 0.6 % Normal 0.0-8.0 [facility] Comment on above: Order Comment: Order Added by Discern Expert. Performed By: #### 2 065565, 9107131, 38469659, 4116152, 70822519 ####[address] [address] Eosinophils/Leukocyte s Auto (Bld) [Pure # fraction] 0.0 E9/L Normal 0.0-0.5 [facility] Comment on above: Order Comment: Order Added by Discern Expert. Performed By: #### 2 515165, 1205648, 18340795, 5933862, 23656911 ####[address] [address] Lymphocytes/100 WBC (Bld) 46.4 % Normal 14.0-50.0 [facility] Comment on above: Order Comment: Order Added by Discern Expert. Performed By: #### 2 253254, 8389341, 57476914, 5935203, 34415846 ####[address] [address] Lymphocytes/Leukocyte s Auto (Bld) [Pure # fraction] 3.1 E9/L Normal 1.0-4.0 [facility] Comment on above: Order Comment: Order Added by Discern Expert. Performed By: #### 2 250476, 2611745, 81356446, 8955565, 80595802 ####[address] [address] Monocytes/100 WBC (Bld) 8.2 % Normal 4.0-14.0 [facility] Comment on above: Order Comment: Order Added by Discern Expert. Performed By: #### 2 068073, 1454956, 23651676, 2324470, 31867521 ####[address] [address] Monocytes/Leukocytes Auto (Bld) [Pure # fraction] 0.6 E9/L Normal 0.2-1.0 [facility] Comment on above: Order Comment: Order Added by Discern Expert. Performed By: #### 2 880638, 9592931, 19017074, 6447726, 76104647 ####[address] [address] Neutrophils/100 WBC (Bld) 43.9 % Normal 36.0-75.0 [facility] Comment on above: Order Comment: Order Added by Discern Expert. Performed By: #### 2 058371, 0948747, 70963709, 0348659, 66696269 ####[address] [address] Neutrophils/Leukocyte s Auto (Bld) [Pure # fraction] 3.0 E9/L Normal 2.0-7.5 [facility] Comment on above: Order Comment: Order Added by Discern Expert. Performed By: #### 2 557037, 8623082, 43577023, 8788557, 59979661 ####[address] [place] [address] BB Draw & Holdon 02-13-2022 BB D&H Sample drawn for Blood Ba Normal [facility] Comment on above: Performed By: #### 2 138949, 8738100, 81216675, 7661299, 90298388 ####[address] [address] CBC w/ Auto Diffon Erythrocyte distribution width (RBC) [Ratio] 13.3 % Normal 10.9-14.2 [facility] Comment on above: Performed By: #### 2 882252, 7926856, 34475579, 2713845, 45950227 ####[address] [address] Hematocrit (Bld) [Volume fraction] 34.1 % Normal 34.0-46.0 [facility] Comment on above: Performed By: #### 2 100443, 7670786, 46454872, 5707350, 23019569 ####[address] [place] [address] Hemoglobin (Bld) [Mass/Vol] 11.7 g/dL Low 12.0-16.0 [facility] Comment on above: Performed By: #### 2 793157, 2936993, 33382647, 3948755, 45847925 ####[address] [address] MCH (RBC) [Entitic mass] 29.9 pg Normal 27.0-34.0 [facility] Comment on above: Performed By: #### 2 735994, 4490956, 92998604, 7498311, 46353008 ####[address] MCHC (RBC) [Mass/Vol] 34.4 g/dL Normal 31.4-36.0 [facility] Comment on above: Performed By: #### 2 831763, 2592767, 12060139, 7526073, 78472211 ####[address] [address] MCV (RBC) [Entitic vol] 86.8 fL Normal 80.0-100.0 [facility] Comment on above: Performed By: #### 2 614139, 6632139, 21767273, 5056236, 25478547 ####[address] [place] [address] Platelet mean volume (Bld) [Entitic vol] 7.9 fL Normal 6.4-10.8 [facility] Comment on above: Performed By: #### 2 353300, 0721416, 37308590, 6961097, 43097019 ####[address] [address] Platelets (Bld) [#/Vol] 329.0 E9/L Normal 150.0-500.0 [facility] Comment on above: Performed By: #### 2 681421, 4584640, 30316230, 2717998, 08640699 ####[facility] [id number] [place] [address] RBC (Bld) [#/Vol] 3.9 E12/L Low 4.3-5.9 [facility] Comment on above: Performed By: #### 2 392114, 8910355, 56048684, 4853860, 67555127 ####[facility] [id number] [place] [address] WBC corrected for nucl RBC Auto (Bld) [#/Vol] 6.7 E9/L Normal 4.0-11.0 [facility] Comment on above: Performed By: #### 2 465572, 5988318, 11399564, 4936059, [id number] ####[facility] [address] [place] [address] CHEMISTRYOrdered By: SYSTEM SYSTEM on 02-13-2022 Albumin [...] m2 Normal >=59mL/min/1 .73 m2 [facility] [place] S GFR/1.73 sq M.predicted among non-blacks MDRD (S/P/Bld) [Vol rate/Area] mL/min/1.73 m2 Normal >=59mL/min/1 .73 m2 [facility] [place] S Globulin (S) [Mass/Vol] 3.2 g/dL [...] 14 mg/dL Normal 5 - 21 mg/dL [facility] Remisol Urea nitrogen/Creatinine [Mass ratio] 35 mg/mg High 10 - 20 [facility]isol CMPon 02-13-2022 Albumin [Mass/Vol] 4.3 g/dL Normal 3.3-5.0 [facility] Comment on above: Performed By: #### 2 075787, 2475226, [id number], 5254105, [id number] ####[facility] [address] [place] [address] Albumin/Globulin (S) [Mass conc ratio] 1.3 Normal 1.1-2.2 [facility] Comment on above: Performed By: #### 2 427333, 2920189, [id number], 7878633, [id number] ####[facility] [address] [place] [address] ALP [Catalytic activity/Vol] 55 Int._Unit/L Normal 21-98 [facility] Comment on above: Performed By: #### 2 054698, 6301823, [id number], 4355028, 85428307 ####[facility] [address] [place] [address] ALT No additional P-5'-P [Catalytic activity/Vol] 12 Int._Unit/L Normal 6-46 [facility] Comment on above: Performed By: #### 2 436392, 0781260, 86180084, 4209255, [id number] ####[id number] [place] [address] AST [Catalytic activity/Vol] 15 Int._Unit/L Normal 5-43 [facility] Comment on above: Performed By: #### 2 777244, 1032733, 52308684, 0939121, [id number] ####[facility] [address] [place] [address] Bilirubin [Mass/Vol] 0.4 mg/dL Normal 0.0-1.1 [facility] Comment on above: Performed By: #### 2 997265, 5662885, 40943622, 3904572, [id number] ####[facility] [address] [place] [address] Creatinine [Mass/Vol] 0.4 mg/dL Low 0.5-1.3 [facility] Comment on above: Performed By: #### 2 528403, 9034978, 12790155, 6802235, 58831324 ####[facility] [address] [place] [address] Globulin (S) [Mass/Vol] 3.2 g/dL Normal 1.4-4.0 [facility] Comment on above: Performed By: #### 2 425590, 5887883, 66682855, 9186866, 90807777 ####[facility] [address] [facility] [place] [address] Protein [Mass/Vol] 7.5 g/dL Normal 6.0-7.8 [facility] Comment on above: Performed By: #### 2 377761, 8566949, 50668911, 1637336, 66091084 ####[facility] [address] [place] [address] Urea nitrogen [Mass/Vol] 14 mg/dL Normal 5-21 [facility] Comment on above: Performed By: #### 2 100767, 0076532, 11521893, 6082966, 50374567 ####[facility] [address] [place] [address] Urea nitrogen/Creatinine [Mass ratio] 35 No Units High 10-20 [facility] Comment on above: Performed By: #### 2 985221, 2900405, 46722906, 6892518, 47248815 ####[facility] [address] [place] [address] Anion gap [Moles/Vol] 10 mmol/L Normal 6-16 [facility] Comment on above: Performed By: #### 2 121168, 9953399, 53358493, 1916101, 32653353 ####[facility] [address] [place] [address] Calcium [Mass/Vol] 9.2 mg/dL Normal 8.9-11.1 [facility] Comment on above: Performed By: #### 2 [id number], [id number], [id number], [id number], [id number] ####[facility] [address] [place] [address] Chloride [Moles/Vol] 107 mmol/L Normal 101-111 [facility] Comment on above: Performed By: #### 2 304341, [id number], [id number], [id number], [id number] ####[facility] [address] [place] [address] CO2 [Moles/Vol] 23 mmol/L Normal 21-31 [facility] Comment on above: Performed By: #### 2 562346, 4282540, [id number], [id number], [id number] ####[facility] [address] [place] [address] Glucose [Mass/Vol] 87 mg/dL Normal 55-199 [facility] Comment on above: Result Comment: If t his glucose result represents a fasting glucose, interpretation should refer to the following reference range: 55-99 mg/dL Performed By: #### 2 244734, 1702875, 20154699, 2429172, [id number] ####[facility] [address] [place] [address] Potassium [Moles/Vol] 3.8 mmol/L Normal 3.5-5.3 [facility] Comment on above: Performed By: #### 2 066778, 5255047, [id number], 5147242, [id number] ####[facility] [address] [place] [address] Sodium [Moles/Vol] 136 mmol/L Normal 135-145 [facility] Comment on above: Performed By: #### 2 838494, 4550093, 42677692, 5258155, [id number] ####[address] [place] [address] Consent for Treatmenton 09-0 Consent for Treatment [id number] 20 [id number] #1.00CD:127 Normal [facility] Discharge Instructionson Discharge Instructions [id number]# 1.00CD:127 Normal [facility] ED Clinical Summaryon 2021 ED Clinical Summary [address] [address] ED Clinical Summary Person Information [...] 02/13/2022 07:28:36 02/13/2022 07:28:36 ADDRESS: [address] [facility] [id number] PHYS DOC NOTES: Addendum by Kevin Santoro DO on February 13, 2022 07:22:06 EDT MEDICAL INFORMATION: Prescriptions Given: New Medications [id number], [address], [place] [id number], [phone] pramoxine topical (ProctoFoam 1% Foam) apply By rectum 2 times a day for 7 Days. Refills: 0. Medications to Continue with No Changes Other Medications ethinyl estradiol-norgestima te (Sprintec oral tablet) Ib By Mouth every day. ibuprofen (ibuprofen 600 mg Tab) 1 Tablets By Mouth every 6 hours as needed as needed for pain. PATIENT EDUCATION INFORMATION: Instructions: Rectal Bleeding, Dvwr-vx-Reai; Hemorrhoids, Zvrp-ry-Nkgs Follow up: With: Address: When: [facility], [address] [place] [address] Business (1) In 3 days 02/16/2022 With: Address: When: CAITIE MARSHALL In 3 days DIAGNOSIS: Acute hemorrhoid Normal [facility] ED Note-Physicianon 02-14-20 ED Note-Physician Basic Information Time Seen: Ana Braxton DO Dominik 02/13/2022 06:19 Chief Complaint Blood coming out [...] or worsen. Diagnosis: Rectal bleeding Normal [facility] Comment on above: Result Comment: Elec [...] 02/10/2012 Document Revised: 05/13/2018 Document Reviewed: 07/26/2016 [employer] Patient Education ? 2019 [employer] Hemorrhoids Hemorrhoids are swollen veins that [...] times a day. General instructions ? Take oncy-sfk-gojnsdo and prescription medicines only (more content not included)... Normal [facility] ED Patient Summaryon 022 ED Patient Summary [address] [address] Patient Discharge Instructions Person Information Name: MARIBEL VELEZ Age: 21 Years Arrival Date: 02/13/2022 06:16:54 Discharge Diagnosis: Acute hemorrhoid Primary Care Physician: CAITIE MARSHALL CNP Provider Information Primary Provider: Ana Braxton DO Advanced Secretary:None The exam and treatment you received in the Emergency Department were for an urgent problem and are not intended as complete care. It is important that you follow up with a doctor, nurse practitioner, or physician?s family assistant for ongoing care. If your symptoms become worse or you do not improve as expected and you are unable to reach your usual health care provider, you should return to the Emergency Department. We are available 24 hours a day. MARIBEL VELEZ has been given the following list of patient education materials, prescriptions and follow-up instructions: Follow-up Instructions: With: Address: When: [facility], [address] [place] [address] [facility] (1) In 3 days 02/16/2022 With: Address: When: CAITIE MARSHALL In 3 days In the event that this physician does not participate in your insurance network, please consult with your insurance company to find a nearby participating provider. Patient Education Materials: Rectal Bleeding, Pwgm-en-Brwn; Hemorrhoids, Nzaf-gk-Duoq A MESSAGE TO ALL PATIENTS REGARDING OPIOIDS PRESCRIPTION OPIOIDS: WHAT YOU NEED TO KNOW Prescription opioids can be used to help relieve vrqbqisl-ya-lmshlk pain and are often prescribed following a [...] care professi (more content not included)... Normal [facility] HEMATOLOGYOrdered By: SYSTEM SYSTEM on 02-13-2022 [...] (S/P/Bld) [Vol rate/Area] mL/min/{1.73_m2} Normal >=59 [facility] Comment on above: Order Comment: Order added by Discern Expert. Result Comment: eGFR is race adjusted. AA=. Performed By: #### 2 868674, 7734756, [id number], [id number], [id number] ####[facility] [address] [place] [address] GFR/1.73 sq M.predicted among non-blacks MDRD (S/P/Bld) [Vol rate/Area] mL/min/{1.73_m2} Normal >=59 [facility] Comment on above: Order Comment: Order added by Discern Expert. Result Comment: Handbag Stitcher linwood kidney disease could be indicated at eGFR's of less than 60 mL/min/1.73m2. Kidney failure is indicated at less than 15 mL/min/1.73m2. Performed By: #### 2 483759, 0936365, [id number], 6338503, [id number] ####[facility] [address] [place] [address] Coding Summary.on 02-06-2022 Coding Summary. CD:[id number] Gh0bWw+PGhlYWQ+PE1FV YNlJ68qcZDpeE3PH2tIF I8SWUHCOINXKE1UOI2mf HE8HPlkI5CaydOx DswkrKGkEG41SZy5XKB3 gKphRXuqhL4kzAEdN4t4 AsLkRT41qJ44RFteYKNi HcL2AcTyjpwahVEg F0izTyZznQZyWqb+PHRh YmxlIHdpZHRoPScxMDAl ZvNurFzcIZ2iTx2lLJAf LWNvbGxhcHNlOiBj y0rmYRTrKDbfPU1xaXhn F3VwhFA0LTEyh2t3Yr97 dHI+CEZdLZK1eVpyOUdn y469PgLvj1eoZDW7 tCCnZOooSZX5G37ms2D5 NIXjSYIzBHM2yTN0lO8m mMosyiyvX1MlqQSrFpA4 RVF3gOTriD1xlUat qwtxuX2qUqa+S02NRW4T NSDFGC9ILpq9D0OlTbrv dHI+EM47MHTiDB63tNPr rAJzf2gzqAl0NuGp TOReSUZ9pEppFFfoe8Tk WSWpY93clRJiw2J7ZLHe xElkyGOiDhIzlCM5yF5c WQcsvdxsh7hbzfpy Zunjq3gaiv76pZ72Y92v GZudBIUwSWK7MZAkYEUc uCnlbl7cmB5aWa4+IDxj s5yed1tzkWq7RfGj MWKcsrXggIheXEO8h2Aa Tm43E8XlySlsg2HsRqa8 vp48yFXqv3B2eVB1FUxd GZQhlL2zKUtbDmE8 PDZkLrLhqS73fQFhJYvq Ub7caPmngUzyGP6xYLCx gbqgBQNkaO7jURCvzTSn iRlyWZ0xCAZfvvyi w844SiXnJPX1TKIssPVz E8NlyS4dQdXbLBAoLVTh W2TvsXWoQJiiS310GFqy JaV0OXQyrdAsR0Iv IGPzjDthGqI0f4C3Iy7I a0FrwpjtMVM6PXiiZIP0 OzZ5EePeNxQ6N4IgExz0 LUUxcMszCI6rH2Rd QEGknzahhkxdrLC1YFUg ITNwqE39tHMyQKpnYe6t b2B7d551DURkECXpcC31 Yq3ojOigEPWjpKPZ nE0suquhv3rjefuyAcQo KNOsKEx8OIj3TIEdbVen ImMhZBW0WkW8UIP9qHSi aT6dgJinirpiaZ2x Oyc+I54fmO4nSGI1KHP6 ifshECGyytNzBA47AA57 N7WhWcyynTMijDE+PGRp heSpwBdsQD5tScVk h0jcc8HkGEquM6WdHISp BAwkGxv8TCDvIZE5kCY5 oV6jSVFvIZiob9T4uYC5 D0JzauYghr0xg2de VTDeCVniJ30sqUCrx3G4 LRJwpIF9FUHlbUpsNfLe xV59Piu+IKIhkNgre7Nr Tifvu4ejx9ptaUy2 IjMwJSIgdmFsaWduPSJ0 i5RtLr68O06cEWrvGSCy UORvFALvWVIbmQbhfa1g yW5cQb2+PGNvbCB3 lYX3mS2jCNLjZbN2FLen Z594VeJknBPcNadfp5gp y0zsmWr4XoSbOMQydaWu sDgeRWK7a2LqYk34 S58bXQkeQBOqGMZsLQTm BJVyiAdpju2ebS5wYv4+ ED8gx6koag46rH41mTX+ LHSwHYA1dQteVVvz ZUUouN8fHEzcVjI7OQIt XqBbfE08qGKmAJxrCx0z gTzczIcjXI8vLGEktslu x428MqVpd3ppXDIo zOZbCIofYCG0C28qc2F1 OSNpDVBbARF3wKI0wY6u bGlnbjogbGVmdDsgdmVy kXjgRDrpTRrnG406 IHRvcDsnPlBhdGllbnQg LyTqZIc9F9GrChf0EASi hHqtUM4izELqOIfeZb5u hLqixSeeHU1tKSHu hstur985ZrObe4ngJRTi dUJrGLlsPYA1M78gj7W6 RHEtBGPhWLS1vUY3mR5x bGlnbjogbGVmdDsg eqGplGrwYMdcBOalK342 IHRvcDsnPkJpcnRoIERh uCU4YU79VH43jVUpk0T5 xXI7N0VqODOicgnp dlzqjTY2RLBlWWMtgX31 Fp6wwMswBi4eGUCiZCL5 RFHxbRXrO5BreF9tRhLt CKOwYWGhO0IhvOBt WAntY123SMnmRhK3KWIu jlLbM1FtXCOpuXzgYpW4 v9U7Cb9MJ2U2KV34CX18 qIWle9V8oAV4T2Us JTMsmuituzvueWV7SHJg ZQCcpG79Qg0zkWyrBn3u PBGeMOT9QXDxkATuX7Fl fL6pHrAhLMGaVHXm A6TpvYBgYRrbS852RZay NeF4ATJastGaV4GmHTNb bXxkLsJ1e4K4Pt1XGNn9 LO81VJ14wACdg4F3 jAN5A4RaINHhbofwguks xYJ5NOTtNBGyyE50Qx2x hCajZi1bZAZiPOP1NSWf lHDwS1RsoH9oHzWt DGHkTHNbF6QovXAcCSdj P863JYhcYwX7CXKmmzNf E9AiFJMruFeoMpW3p9B3 Jh6KUQWkCA44TBW3 xBU2EH60GD63L8JhRilu dGFibGU+PHRhYmxlIHdp ZHRoPScxMDAlJyBzdHls QO8bCf3zXAMoEFCb eKesmFLiHgTqx2ksMIQg CWksMG4enEhcS0DjbMC7 ORMtn9i1Yw30Z60hD8Au dXA+DWVovWF9eDG4 uV8wVhJrZdU5IGoyB525 WjReeHBjNpynk7lnu7hp xCs2IbU6UBJfnwBwvRpi WTA7b3SsLv46C83a IHdpZHRoPSIxNSUiIHZh hVvbij3ouP5aTg0+PGNv zQP5bQR9rX7xTbRcHoM0 FAssF357MpPyfYOr Xntxz4nlk1myfYn3OoHk IXDkwvMvcCnwQOR5i8Xu Yq18N5KxkKcza3TvVda8 eo20gURvy2C7rGR8 D1JeVTFauskhaILuiLsp JJ0dKSKbarjoAVWwhR8w EKOiP8p0AqOvQiK4QOhb X4QnwxB2JBIweIOi UHiiJCM3S82pf8J6RHIf DIBtIHT4sHA1bU7kaVpf bjogbGVmdDsgdmVydGlj MZviULoaE022RJJs dBbxTCWipC9oTVDvjKDt fBelBI0yMRKsseeuJnIW VHpYQOuzP4XANKsLAqhF RT07SX23hYFdz4T3 dTM5Q3CxIITlfgzwstub qSU2YKIbWXPxlE78eFDw PRvnKm3aa9K6m104KZGl FXRhiD91Uz8fkOxf ICQoyYHXwA4yszemn0ng tgqkUsHmMVJoFTl8OBc2 KPKibGcjWsEpQZT1LcY1 TTE2jTLrzB4giFpl matpxS1gUiq+MDIvMTkv MjAwMzwvdGQ+PHRkIHN0 qOgpTUkbTFUbjA7sAVBd W3j2JdHdOiZ4NEjt Q5KcUDUwzfuxQu80dD5v EqHvSsN5RNnlW3JojbZ0 ROUklIBqNHppHEV2Z79w u2F1JDReRQHbRSK1 cPE8nF0xsTycndusgBIp dDsgdmVydGljYWwtYWxp D935OAMnzEocVgP0IAgn HXKsEA83WS49vPWe j1I7wFS9B3RjDKAswevk gnatsMP1VUDoPCCyyD98 oTRtEJoeJx6jn1N6a003 XIMgNLVhvA94Rn3w eHuiVWXxbXUKrT0hhmmt n7lfwvomScPsVYIoDEn7 KZo9SHAcwHevOuFoYXZ0 BrV7OLN4vZTanS9m xXkvjbpibP0fNne+RmVt KKaqVO93KB94qCDes6H9 vSB0D8NyQXUugycydquo cDT7VGRuBEQenL70 yNZpXDeiFx3go5X0o623 ZFDbBGXwmK20Ox2qcTah OYVsxZEOpF7zomxal3sp cjogIzAwMDAwMDt0 LBh3VCKiaUtzNvEhXEN9 XyD7JWJ5xJVfcN5fdKms cdiosY2zNpl+T3Z0gLN9 aWVudDwvdGQ+PC90 qf40U8OgJwukWny0HWYv WWT8dQY1wX6rHIOlLMxe b3P8nBX0I3HyawQnqa3e v7veJAMjQYqiP42o lDXkf0J9JVKmmXO3XPVp vTefQcPajR33Qpq+PGNv lFzxx4SgTpgzk5mkr8kv oBv5SbMkHARflbWp cPnvHJI3o8JzZh82Y23p IHdpZHRoPSIzMCUiIHZh qOtbkv3qlB6sNy9+PGNv oIS8oLR3nP9wVoUy NjG4AQqyF082FrZphZWs Uqaae1hrn9xyvUo3FuXq IKXfchXinXuyXWW4l7Jg Sw44X7MdmIxss6Ie Jje5te07jXBhl4F9dFW1 I3DgJKJlcbfntQJyvPef WQ1yRXMvbnrfQJNwrH4f IJFrK2n5YkTpZiC8 CFcaJ1TetwO4IQPrvBEj WWUfeWROtA0jhladv8dq yyviKiPdCBAmHOz7RDx4 LWFsaWduOiBsZWZ0 AiE3WEI1qSKjeX8pzAbm qtbqmO8wEba+CPb2a5ra sHBsRA2pxUW2XI76VR66 dVYwi4E9gRA6J8Xi PXNfwlhkerhvfNF3CWDu PTMngG52Mo1yrRraSe4r AJTwICA7KQXolBDuU4Rm dQ1oJvNhSDVqINOc G8CioBChBXsuU982YHte SmM3PDFqwfUoS1BaIGNu lPtwRrI9g9V0Ze6FQH99 DV72VC70fWGhl1T8 bAD6V5FlJWAiyyjlrghj oLA9KPMaOYGtkE72Ks1o dYmeBf2wQNNfPCI4ANOe wQGeJ2CgvQ4wGcAj ZGKqREPoC1DjfFUxGHvj K061ZRmgJsC6AJJevqSz J7CtOKLaeWcoSuZ9r0D5 Mx5ZNa74GF66GP11 qAXej1H6eYE5Q8QxGQPt rblgpskkwVH3JHUlZBPh tR78Tm2eiHykZa5kECYf JBU8UVNwrGReB1Fa qV6fTfIcALEqYUSpF6Ob zOEjKPakL141RHywQrI7 HKVmemFwY1HnHOJuvBmt VcS3e6X1Bd6XTUvq hbm1P7XlEkbelYK+PC90 ACKwID28sZRmiCQtm9ke uVi3DbLcWGLuSKJ2bRua SGfwg6UjXGGyX03x bGFw (more content not included)... [facility] Consent for Treatmenton 01-13 Consent for Treatment [id number] 20 [id number] #1.00CD:127 [facility] Physician Orderon 02-03-2022 Physician Order [id number] #1.00CD:127 [facility] XR Shoulder Complete Righton 02-03-2022 XR [...] Reis M.D. Transcribed by: CHRIS Technologist: JULITO [facility] CBC AUTO DIFFon 01-15-2022 BASO # 0.0 103/ul Normal 0.0-0.[address] [facility] Comment on above: Performed By: #### C BC #### [facility] [address] [address] [address] Venancio Soriano Basophils/100 WBC (Bld) 0.6 % Normal 0.2-2.0 [facility] Comment on above: Performed By: #### C BC #### [facility] [address] [place] [address] Dr. Venancio Soriano EO # 0.1 103/ul Normal 0.0-0.[address] [facility] Comment on above: Performed By: #### C BC #### [facility] [address] [place] [address] Dr. Venancio Soriano Eosinophils/100 WBC (Bld) 1.3 % Normal 0.9-7.0 [facility] Comment on above: Performed By: #### C BC #### [facility] [address] [place] [address] Dr. Venancio Soriano Erythrocyte distribution width (RBC) [Ratio] 12.8 % Normal 11.0-15.0 [facility] Comment on above: Performed By: #### C BC #### [facility] [address] [place] [address] Dr. Venancio Soriano Hematocrit (Bld) [Volume fraction] 36.5 % Normal 36.0-48.0 [facility] Comment on above: Performed By: #### C BC #### [facility] [address] [place] [address] Dr. Venancio Soriano Hemoglobin (Bld) [Mass/Vol] 12.2 g/dL Normal 12.0-16.0 [facility] Comment on above: Performed By: #### C BC #### [facility] [address] [place] [address] Dr. Venancio Soriano IG # 0.01 10e3/ul Normal 0.00-0.[address] [facility] Comment on above: Performed By: #### C BC #### [facility] [address] [place] [address] Dr. Venancio Soriano IG % 0.2 % Normal 0.0-0.[address] [facility] Comment on above: Performed By: #### C BC #### [facility] [address] [place] [address] Dr. Venancio Soriano LYMPH # 2.7 103/ul Normal 1.2-3.[address] [facility] Comment on above: Performed By: #### C BC #### [facility] [address] [place] [address] Dr. Venancio Soriano Lymphocytes/100 WBC (Bld) 42.9 % Normal 20.5-60.[address] [facility] Comment on above: Performed By: #### C BC #### [facility] [address] [place] [address] Dr. Venancio Soriano MANUAL DIFF REQ NO Normal [facility] Comment on above: Performed By: #### C BC #### [facility] [address] [place] [address] Dr. Venancio Soriano MCH (RBC) [Entitic mass] 29.4 pg Normal 26.7-34.0 [facility] Comment on above: Performed By: #### C BC #### [facility] [address] [place] [address] Dr. Venancio Soriano MCHC (RBC) [Mass/Vol] 33.4 g/dL Normal 29.9-35.[address] [facility] Comment on above: Performed By: #### C BC #### [facility] [address] [place] [address] Dr. Venancio Soriano MCV (RBC) [Entitic vol] 88.0 fL Normal 81.0-99.[address] [facility] Comment on above: Performed By: #### C BC #### [facility] [address] [place] [address] Dr. Venancio Soriano MONO # 0.5 103/ul Normal 0.3-0.[address] [facility] Comment on above: Performed By: #### C BC #### [facility] [address] [place] [address] Dr. Venancio Soriano Monocytes/100 WBC (Bld) 7.2 % Normal 1.7-12.[address] [facility] Comment on above: Performed By: #### C BC #### [facility] [address] [place] [address] Dr. Venancio Soriano NEUT # 3.0 103/ul Normal 1.4-6.5 [facility] Comment on above: Performed By: #### C BC #### [facility] [address] [place] [address] Dr. Venancio Soriano Neutrophils/100 WBC (Bld) 47.8 % Normal 43.0-75.0 [facility] Comment on above: Performed By: #### C BC #### [facility] [address] [place] [address] Dr. Venancio Soriano Platelet mean volume (Bld) [Entitic vol] 9.5 fL Normal 9.5-13.5 [facility] Comment on above: Performed By: #### C BC #### [facility] [address] [place] [address] Dr. Venancio Soriano PLT 323 103/ul Normal 150-450 [facility] Comment on above: Performed By: #### C BC #### [facility] [address] [place] [address] Dr. Venancio Soriano RBC 4.15 106/ul Critically low 4.20-5.40 [facility] Comment on above: Performed By: #### C BC #### [facility] [address] [place] [address] Dr. Venancio Soriano WBC 6.2 103/ul Normal 4.0-11.0 [facility] Comment on above: Performed By: #### C BC #### [facility] [address] [place] [address] Dr. Venancio Soriano PROF 14(COMP METB)on 022 Albumin [Mass/Vol] 4.0 g/dL Normal 3.4-5.0 [facility] Comment on above: Performed By: #### C MP #### [facility] [address] [place] [address] Dr. Venancio Soriano Albumin/Globulin [Mass ratio] 1.2 {ratio} Normal [facility] Comment on above: Performed By: #### C MP #### [facility] [address] [place] [address] Dr. Venancio Soriano ALP [Catalytic activity/Vol] 67 U/L Normal 46-116 [facility] Comment on above: Performed By: #### C MP #### [facility] [address] [address] [address] Venancio Soriano ALT [Catalytic activity/Vol] 16 U/L Normal 14-59 [facility] Comment on above: Performed By: #### C MP #### [facility] [address] [address] [address] Venancio Soriano Anion gap [Moles/Vol] 11.8 mmol/L Normal [facility] Comment on above: Performed By: #### C MP #### [facility] [address] [address] [address] Venancio Soriano AST [Catalytic activity/Vol] 9 U/L Critically low 15-37 [facility] Comment on above: Performed By: #### C MP #### [facility] [address] [address] [address] Venancio Soriano Bilirubin [Mass/Vol] 0.3 mg/dL Normal 0.2-1.0 [facility] Comment on above: Performed By: #### C MP #### [facility] [address] [place] [address] Dr. Venancio Soriano Calcium [Mass/Vol] 8.6 mg/dL Normal 8.5-10.1 [facility] Comment on above: Performed By: #### C MP #### [facility] [address] [address] [address] Venancio Soriano Chloride [Moles/Vol] 106 mmol/L Normal 98-107 [facility] Comment on above: Performed By: #### C MP #### [facility] [address] [address] [address] Venancio Soriano CO2 [Moles/Vol] 24.9 mmol/L Normal 21.0-32.0 [facility] Comment on above: Performed By: #### C MP #### [facility] [address] [address] [address] Venancio Soriano Creatinine [Mass/Vol] 0.58 mg/dL Normal 0.55-1.02 [facility] Comment on above: Performed By: #### C MP #### [facility] [address] [address] [address] Venancio Soriano EGFR-AF HONDURAN >60 Normal >=60 [facility] Comment on above: Performed By: #### C MP #### [facility] [address] [address] [address] Venancio Soriano EGFR-NON AF HONDURAN >60 Normal >=[address] [facility] Comment on above: Performed By: #### C MP #### [facility] [address] [address] [address] Venancio Soriano Globulin (S) [Mass/Vol] 3.3 g/dL Normal [facility] Comment on above: Performed By: #### C MP #### [facility] [address] [place] [address] Dr. Venancio Soriano Glucose [Mass/Vol] 94 mg/dL Normal 74-106 [facility] Comment on above: Performed By: #### C MP #### [facility] [address] [address] [address] Venancio Soriano Potassium [Moles/Vol] 3.7 mmol/L Normal 3.5-5.1 [facility] Comment on above: Performed By: #### C MP #### [facility] [address] [place] [address] Dr. Venancio Soriano Protein [Mass/Vol] 7.3 g/dL Normal 6.4-8.2 [facility] Comment on above: Performed By: #### C MP #### [facility] [address] [place] [address] Dr. Venancio Soriano Sodium [Moles/Vol] 139 mmol/L Normal 136-145 [facility] Comment on above: Performed By: #### C MP #### [facility] [address] [place] [address] Dr. Venancio Soriano Urea nitrogen [Mass/Vol] 9.0 mg/dL Normal 6.4-19.[address] [facility] Comment on above: Performed By: #### C MP #### [facility] [address] [place], [place] [address] Dr. Venancio Soriano Urea nitrogen/Creatinine [Mass ratio] 15.5 mg/mg Normal [facility] Comment on above: Performed By: #### C SANGEETA #### [facility] [address] [place], [place] [address] Dr. Venancio Soriano Discharge Instructionson Discharge Instructions [id number] 3#1.00CD:127 Normal [facility] ED Note-Physicianon 10-23-19 22 ED Note-Physician Basic Information Time Seen: Cherry [...] A&B [place] [place] Plan Patient Discharge Condition Stable Discharge Disposition Home Discharge Prescription List Prescriptions No active prescription medications Follow-up With When Contact Information Michelle Mata In 3 days 10/22/2021 EDT Additional Instructions: Patient Education Viral Respiratory Infection, Wcih-Vw-Mwqv Attestation This visit was performed by both [...] Results No qualifying data available. Normal [facility] Comment on above: Result Comment: Elec tronically Signed By: Cherry aHzel PA-C\.br\Date and Time Signed: 10/19/21 17:19 EDT\.br\Electronically Co-Signed By: Miko Yepez MD\.br\Date and Time Co-Signed: 10/22/21 10:35 EDT Coding Summary.on 10-20-2021 Coding Summary. CD:[id number] Gh0bWw+PGhlYWQ+PE1FV EGeZ33baNVcrD2QA7zHN X4RRYGCITBXNN5DSW9ze KX6CDfjK7TuadVx XskbhNJkMW67KYk6KID4 aBfrEVikgA3uxCHrO9y1 OxPfGP07sU14PQptGWBd AlI6MlNxnvxyuMAn Q9fpXqCbaYKgSvw+PHRh YmxlIHdpZHRoPScxMDAl BrKqcAcvHE2zZc7dOLKr LWNvbGxhcHNlOiBj b9sqOVUuSDojUQ8xsKix S3RjjXP0APYzo9b5Xw63 dHI+TDZqODF6yFmnJEkx y302IsGfx8fcVRG8 nLXzXArqZPB4L45ov5P4 IGIwCVCbSVS7vWQ4vG2n tJdswxouU5UyiRBjIlT7 EAJ4kHYcwG5uiAuw xtjepS0mRnj+H33HZZ6D PEMJDX2YZlb2P6LwUxjr dHI+BT36BQLwNA04jHWi fGLum0huwPd7TxCk CMYfKME4yAycXJzog1Gc KBMwZ86tpRZbo0H7PEHo rRtetZUoEnGlaTX0fY7f FUuetzojr5nnpvbk Soxsu6jzoo17cE00Q97t LWvaVZJkMLV4ZZCbENAr iYkqpl5mdC6cDi3+IDxj u2wko4qrpOg5XpIj HITvftGgaVdqSSO0f0Ca Xb71O3CtdWgom0GxJvs7 vb36jXKxn1B3gQO2LPog OYGksM2xQCavQcD5 EBLwEyUttM27zAMhMGvz Ky2cwTbvzYmqQK2fIPAw nhkzMGEbvF1xBETdlFNb aCzkZY3dUVSlgjtc d394ApEpJDB6LFEtsWXv R8XgqW6yPwAoFLMkQKAf M5FueOHoLHjbX583FUmx UdR0OWZwrdNgL1Cw OALhuFbhEtY5r2V5Fe0R n2PrlhklPBB0XLouASR1 EgJ5ImNcErG2T8CuXhn9 ALGmtIldMN0zG2Vk NEBbnabhqeykgVG1MUTv PKRxhW64aYLmYYdmBh3e s1S0q324KHBuHDPcbO72 Vl1idMraUTUxeEPW tV5arlfal6mwxgzcTsHn GSQmOFn2WMg9XOWksLsw TlUlJZJ7IaG8BIE1iBFk oV9kvOagmfjppZ4w Oyc+T87oeT9hFMA2LFP4 nkgjIDHhqsTiWG13ZD51 A2EqVsineSKlhKO+PGRp spLqeXhwOD1xPdXp g6lad1HgLRimM2PqOOSg WWwwWxf6XWDxXZJ9kMW2 nY4cYHAxNGuus4U7mUA7 Y6EmosMliy6yl3qv JIEiJHegD40aaYEaz7G7 MRRaoGB0FLOhnPaoSsYj vP39Ezs+UBAirCnew9Ky Ddytu0bmh1mgiOy2 IjMwJSIgdmFsaWduPSJ0 c5UaXh02I66nREjlEREy CAFiTPVbVMEqeDrwnu0p tN7vDe3+PGNvbCB3 lRM8pU4uCGQaWrG1OBpu G483LkWhqGGmZhmng7ko g6wuaXf6OqTzHJGiagCt eBwfSDR8z2BrCs93 S23bBQaoEAVbSQGvTXEs LKOplZscto0nwB6hTm8+ MT2ao7iyio16qE35hHK+ DMWnJIV1xJzmSLnp BHLsiO1jSLdqCiE0BSXp FdMyjY20fLNoBXtbUe2x lEuapKuiKC1wPNJpbpnz r394PiHnr7jwRCGs hGQgRPjgLBA5Y62sb5E0 DPNiQOChAJJ8jFD2xW3t bGlnbjogbGVmdDsgdmVy eQteXFfpXShrI771 IHRvcDsnPlBhdGllbnQg VbUmQLu3C0RwPrp4EEFv cIjhJY4plLPoYGmwNx8y sDshsTciLM7zVUYk szbre846ZjTef4prNRRz qYGtBIujWDU3F47fk8V7 GMZnWVErAOO4lDB6bL1f bGlnbjogbGVmdDsg etKfnQvlULjvPXciC854 IHRvcDsnPkJpcnRoIERh gRV0ZD82CR65wRLxe1G9 bOU0E7YdJANekdmu eijygEV0RQSqVVDvgV52 Ia1twXusZd4jLZKjOQI4 YOIwfDCmT4IdoK2aVfGz VNDlQASkC7BsgCZs IOmwL393AUcdBfO5QJAv jsOlY3DmSGEqbWrlLmM0 g4C4Ya5NZ8J8CL89MJ25 nSExk4X0rTP5S3Iz DPDejwxnmvjmsIK3EYHs SAQsoA30Xu0frYbtRk3i CORvNNW5FYMwsFCfI4Ir rM0oCbRrAEAqUCRx S0LqhYBzQIhmL562PWdp YwD2VCXnuzHwH4SdLBCv gRolArC8t5A3Xv9YSDv0 EF13NJ48uSClh9D2 pQW1J6ErBNUqkikzsuhz bLY8IKElTEGhrI18Vu9b zWxbUd9bCSPjZIN2BNMn jMYaV0EbhB7yIxJs AIYrVLQeZ3JtcPZmJVjy I853OMomOlS5GWWaywZg D7XuHPHviMvhHuG0j8E8 Ol3NJADhQI64BSB1 eJI5MP18PU42G0GoIixc dGFibGU+PHRhYmxlIHdp ZHRoPScxMDAlJyBzdHls HI8vCb8tXHCuDYSc hBjlhPPgJhDmj0hpYHVo NLkpTM0kfSbpA2TiqJC6 URIfy7g8Az90M82pX5Gv dXA+ZGNbzWE2sOK6 eG7aLfOrXvS4OWyqZ315 OnMtcDOxJxnab4brc9tu zMd7FxE8FSLiwcGizQls SDV5c6RpNs58J32f IHdpZHRoPSIxNSUiIHZh qFwmxz7quO9nMd1+PGNv rHY0vUH0fJ4gLjVzXfZ8 AFgdS018ArNjrRUq Eueoe4hez3ydkKt7BpRf SKOvqcUkhVhwFKM6y2Tl Dw10O0FubQxhg3UmEyq4 sf74mWWrd8J5zAB7 D5UaQPFebfkhpXLfoBct GV3qZESlvygiFXHwoR5p IGPxC8r0LfGfXwB3DQib E3FkhsD5HDSbwXIq MBipAMV0Z01qg2E4DCFi ODOhWKU6zYY8pM2glLkp bjogbGVmdDsgdmVydGlj EDqlVMagY989JVVq eEgjKRTqdE0nPNRtzTBl kGsyWF9lQWCdbzmcKhEU RTqEWSlrH9SYQMqUBaaX MN20BK44tUAsv9A4 sDH7C7LlFZEgxvfimyip hXG9MSFsYZZnjM77bTMp HKytLi2eg9N2t254SPZz CLWquY24Jq3teDbf WXYstKXYfZ7ycggef4qs rbqkMuEjTADnVGq3ZTe7 OMIrzPcrWjZwWJG8HmB7 NJJ7wSOpxD7wbNro yqpfdU4cKvw+MDIvMTkv MjAwMzwvdGQ+PHRkIHN0 hCqgZRjbQAUrtK7kLPTw W9n2WhZsGyD8SLfc A8JfJQHiykdeSf79zB6a HwIuQcV1PJvmS2DowaG9 TCWxbGLeOExiZRL8K62f i5V8VGHiDEXrOBT6 jIK2gW8axQefmjoilAGt dDsgdmVydGljYWwtYWxp V516WBBoyPaxSsB3SIhx CMCsFG30UE95rWBq y6Z2pCR1Y0TbIUBwgdha hvmyfFF2EXTeOFTnjG50 lITfWIniXs6fl8Y2x627 SYUqHBHhxF91Dq1y eBghXEWvgMIAuC3fcqdd e1ogefzhZpRmJPAcJGh5 VUn7PULuzOdzKeKzEVU1 PoG5BJH3uMCdpK3b tHygxoyduE8cKlt+RmVt CGamMO89DL57jICji4N0 iZH5Y5TjSFZbvaagamld dQM2OABdRNTkkY60 tJWkRBmqYx9ox7M3f275 MNCqZPXyyK90Mr1tiCdy RTGdtUJOiI2hocurz7ia cjogIzAwMDAwMDt0 TMi7LVJqmCpxMxAkKPW5 GsL6MVM3iBXfdV0cxJhr bsevmV7yGsb+PD9fwkpw bfJ9XF85XE16A5Jx PjwvdGFibGU+PHRhYmxl IHdpZHRoPScxMDAlJyBz yZfoFF7kGd5qPOZvXEKi oXyqdJOfRkMhy0hb OVYcPFctWM2mwBukF6Bo qXB4IDYhm2y7En15D36x N5AuhTJ+ZNNjeIV7zSE4 qC6vJkNfGnX7LWld G401YqFscWKsLtnqs7mf i3pkqFr2ZrFkTURbydIs aHztEDJ3h5BlJg21P96t IHdpZHRoPSIyMCUi UOWwkPuiot3ktI5zZp2+ LYCrzDF8rZY4nY4uFdJj NqP9GMklB026GgJyrLOw FqzyM84pQ0CzkZP+ HUFiBgy5NWAigCfrZK9u cPLwJYpaAs2iIQO9ZeNf YzAjXJqiH3XgXGQxvocs hpptnAQ3QEIyEYUc tM57Aw3ktIsdKu5hTEXv YSO5XDIqxMDeU3GhyU4f KjXeGGTiYRXzI9LegZFi EBsuP268IKvwYbO6 CQRgcpRjA6XfKIXtfHbk NoS2r4P3Su2QeEitzKCs KG4nWtXoGRp8S1SnTnd4 ZJYztAxvZB2dmCRd RHzePw5swJbjmXukSS0n QJIqvrtmb037AxRlz1yt WKJhoCQhVQfkKCX1V63n r3V0RBRpUKCtDTW8 oNW8tA9zsMnzgpchlVCw dDsgdmVydGljYWwtYWxp S322DZQbdWabMgKEPkg1 I7QcEoi6UGFdgFbw TJ2lyDZoWCykPc9yaArv nNvjSI6qZIDkzmjvx194 DdCwh5heRNWmpGHwEXyc XDD2X83do0U9BHAs FYEvJXL4kXT5uI0sfKhi bjogbGVmdDsgdmVydGlj ZHgkJIfjH124HBJvqJjl Mg3DXrr6D7LiGhu1 JDPugKsjNA3bgQDpKLzb Xm9caUhleSvdNZ0eECVx uulee631YcSfb4wuESEd tWNyPXjpOKC6B38p i3Q0UGHpOBZaINY8sEM9 tN0utJiuwrtykSIckUlg dlWpoTfzXWplYTqmW958 IHRvcDsnPlBheWVy OjwvdGQ+BR88uv45C1Za MzolSsm6ANDbOQS6xKJ2 lF7sMUXcRWohr2T2gCX4 J2BawfZdin3zl1jm YXBz (more content not included)... Normal [facility] Consent for Treatmenton 0 Consent for Treatment [id number] 20 [id number] #[id number] Normal [facility] ED Clinical Summaryon 2021 ED Clinical Summary [place] [id number] ED Clinical Summary Person Information Name: MARIBEL VELEZ/[facility] Age: 21 Years : 2000 Sex: Female [...] 10/19/2021 17:27:21 10/19/2021 17:27:21 10/19/2021 17:27:21 AD[address]ESS: [address] [id number] [facility] DOC NOTES: MEDICAL INFORMATION: Prescriptions Given: Medications to Continue with No Changes Other Medications ethinyl estradiol-norgestima te (Sprintec oral tablet) Ib By Mouth every day. ibuprofen (ibuprofen 600 mg Tab) 1 Tablets By Mouth every 6 hours as needed as needed for pain. PATIENT EDUCATION INFORMATION: Instructions: Viral Respiratory Infection, Vklz-Gd-Povd Follow up: With: Address: When: Michelle Mata In 3 days 10/22/2021 DIAGNOSIS: 1:Viral respiratory illness; Other viral agents as the cause of diseases classified elsewhere Normal [facility] ED Patient Education Noteon 10-19-2021 ED [...] home: Managing pain and congestion ? Take ukth-qym-eczblui and prescription medicines only as told by [...] and water are not available, use hand act tutor. ? Avoid contact with people who are [...] Reviewed: 07/11/2018 Elsevier Patient Education ? 2019 [employer]. Normal [facility] ED Patient Summaryon 022 ED Patient Summary [place] [id number] Patient Discharge Instructions Person Information Name: MARIBEL VELEZ Age: 21 Years Arrival Date: 10/19/2021 17:05:16 Discharge Diagnosis: 1:Viral respiratory illness; Other viral agents as the cause of diseases classified elsewhere Primary Care Physician: JOSE G VENCES, JOE Joseph Provider Information Primary Provider: Advanced Secretary:None The exam and treatment you received in the Emergency Department were for an urgent problem and are not intended as complete care. It is important that you follow up with a doctor, nurse practitioner, or physician?s family assistant for ongoing care. If your symptoms [...] provider. Patient Education Materials: Viral Respiratory Infection, Qysh-Ah-Gpyo A MESSAGE TO ALL PATIENTS REGARDING OPIOIDS PRESCRIPTION OPIOIDS: WHAT YOU NEED TO KNOW Prescription opioids can be used to help relieve tlaoqxbj-pc-tbgbok pain and are often prescribed following a [...] be struggling with addiction, tell your health medicare sales representative and ask for guidance or call [facility]S National Helpline at 7-172-747-CZJN. m Source: [place] Departmen (more content not included)... Normal [facility] Influenza A&B Agon 2 Influenzae A Ag Negative Normal Negative [facility] Comment on above: Performed By: #### 1 [id number] ####[facility] [address] [place] [address] Influenzae B Ag Negative Normal Negative [facility] Comment on above: Result Comment: Test sensitivity and specificity vary for age group, specimen type, antigen types, and prevalence of disease. Test results must be evaluated in conjunction with other clinical data available to the physician. Individuals who received nasally administered Influenza A vaccine may have positive test results up to 3 days after vaccination. Performed By: #### 1 [id number] ####[place] [id number] [place] [address] MICRO OTHER TESTSOrdered By: Mya Reza on 10-19-2021 Influenzae A Ag Negative (10/19/21 5:05 PM) Normal Negative [facility] Influenzae B Ag Negative (10/19/21 5:05 PM) Normal Negative [facility] Rapid COV Int NEG Ctl Pass (10/19/21 5:05 PM) Normal [facility] Rapid COV Int POS Ctl Pass (10/19/21 5:05 PM) Normal [facility] SARS-CoV+SARS-CoV-2 (COVID-19) Ag IA.rapid Ql (Resp) Not Detected (10/19/21 5:05 PM) Normal Not Detected [facility] Rapid COVID Antigen ([facility])on 10-19-2021 Rapid COV Int NEG Ctl Pass Normal [facility] Comment on above: Performed By: #### 2 [id number] ####[facility] [address] [place] [address] Rapid COV Int POS Ctl Pass Normal Fis her [facility] Comment on above: Performed By: #### 2 [id number] ####[facility] [address] [place] [address] SARS-CoV+SARS-CoV-2 (COVID-19) Ag IA.rapid Ql (Resp) Not detected Normal Not Detected [facility] Comment on above: Result Comment: The [employer]iny Media[employer]? System for Rapid Detection of SARS-CoV-2 is [...] or revoked sooner. Performed By: #### 2 [id number] ####[place] [address] ADMITTED TO INTENSIVE CARE UNIT FOR CONDITION OF INTEREST:FIND:PT: NO Normal [facility] Comment on above: Performed By: #### 2 [id number] ####[place] [address] EMPLOYED IN A HEALTHCARE SETTING:FIND:PT: NO Normal [facility] Comment on above: Performed By: #### 2 [id number] ####[place] [address] FIRST TEST FOR CONDITION OF INTEREST:FIND:PT: Unknown Normal [facility] Comment on above: Performed By: #### 2 [id number] ####[address] [address] HAS SYMPTOMS RELATED TO CONDITION OF INTEREST:FIND:PT: YES Normal [facility] Comment on above: Performed By: #### 2 [id number] ####[place] [address] HOSPITALIZED FOR CONDITION OF INTEREST:FIND:PT: NO Normal [facility] Comment on above: Performed By: #### 2 [id number] ####[address] [address] STATUS:FIND:PT: NO Normal [facility] Comment on above: Performed By: #### 2 [id number] ####[place] [id number] [facility] SETTING:FIND:PT: NO Normal [facility] Comment on above: Performed By: #### 2 [id number] ####[address] [address] US SINGLE QUAD RT UPPERon US SINGLE [...] by: SUGAR CAMARENA Date: 2021-09-19 11:51 Normal [facility] 08-05-[address] [facility] [place] [address] [place] [address] Nuclear Medicine Report Signed Patient: Maribel Velez MR#: [id number] : 2000 Acct:[id number] Age/Sex: 21 / F ADM Date: 08/05/21 Loc: [place] Room: Type: [facility] Attending Dr: Amy Goodrich DO Ordering Provider: Amy Goodrich Jr, DO Date of Service: 08/05/21 HI/SHAHIDA Meckel's: Blood in stool;Abdominal pain Copies to: DO Joe Rodriguez Jr, MD Ward, Jeffrey S DO Nuclear medicine Meckel's scan TECHNIQUE: 12.0 mCi technetium 99m labeled sodium pertechnetate administered intravenously. Sequential planar imaging of the abdomen performed. HISTORY: Upper abdominal pain. Cramping. Blood clots in stool. No abnormal uptake is seen to suggest active Meckel's diverticulum. HI/SHAHIDA Meckel's IMPRESSION: No findings to suggest active Meckel's diverticulum. Impression dictated by: Naseem Cevallos M.D.08/05/2021 4:16 PM Dictation Location: [place] [address] Transcribed By: [facility] 08/05/21 1616 Dictated By: Naseem Cevallos DO 08/05/21 1611 Signed By: 08/05/21 1616 Normal [facility] HCG,Urineon 07-29-2021 Beta HCG ( test) Ql (U) Negative Normal [facility] Comment on above: Result Comment: PERF ORMED BY: [address] [place] [id number] PATHOLOGIST [employer] EDDIE CORTÉS M.D. Performed By: #### U HCG #### [address] 07-29-2021 L Specimen: [id number] Received: 07/29/21 Status: AMMY Reddy Num: [id number] Spec Type: Surgical Subm Dr: Amy Goodrich Jr, DO Tissues: A Colon Biopsy (RANDOM BX) Procedures: HE Stain/2, Gross/Micro L4 Patient Age/Sex Location Account Attending Physician Maribel Velez 20/F [id number] Amy Goodrich Jr, DO SPEC NUM: [id number] RECD: 07/29/21 STATUS: AMMY REDDY NUM: [id number] DIMITRI: 07/29/21 [facility] DR: Amy Goodrich Jr, DO ENTERED: 07/29/[address] [facility] [address]: ELENA TYPE: Surgical DEPT: S ORDERED: [...] microscopic findings support the above pathologic diagnosis. [id number] Specimen: [id number] Received: 07/29/21 Status: AMMY Reddy Num: [id number] Spec Type: Surgical Subm Dr: Amy Goodrich Jr, DO Tissues: A Colon Biopsy (RANDOM BX) Procedures: HE Stain/2, Gross/Micro L4 Patient: Maribel Velez [id number] (Continued) Signed (signature on file) Eddie Cortés MD 07/30/21 657 [facility] COVID-19 Antigenon 2 COVID-19 Antigen [...] its performance Lucas Disclaimer characteristic determined by [employer] and Lucas Disclaimer validated at [facility] [...] Emergency Use Authorization for Coronavirus Lucas Disclaimer isease during the Public Health Emergency) Lucas Disclaimer [...] is terminated or revoked sooner. PERFORMED BY: [place] [address] PATHOLOGIST [employer] EDDIE CORTÉS M.D. Normal [facility] Comment on above: Performed By: #### C OVID-19 LUCAS, SOFIANEG #### [address] Lucas Ag Negativeon 07-25-19 22 Lucas Ag Negative Negative Normal Negative [facility] Comment on above: Result Comment: This is a duplicate Lucas SARS Antigen (REINIER) result to be used for statistical tracking purpose only. PERFORMED BY: [place] [address] PATHOLOGIST [employer] MAK[employer] EDDIE CORTÉS M.D. Performed By: #### C OVID-19 LUCAS, SOFIANEG #### [address] COVID-19 Antigenon 2 COVID-19 Antigen Healthcare [...] its performance Lucas Disclaimer characteristic determined by [employer] and Lucas Disclaimer validated at [facility] [...] is terminated or revoked sooner. PERFORMED BY: [facility] [place] [address] PATHOLOGIST [employer] EDDIE CORTÉS M.D. Normal [facility] Comment on above: Performed By: #### S OFMIREYA, COVID-19 LUCAS #### [address] Lucas Ag Negativeon 07-16-19 22 Lucas Ag Negative Negative Normal Negative [facility] Comment on above: Result Comment: This is a duplicate Lucas SARS Antigen (REINIER) result to be used for statistical tracking purpose only. PERFORMED BY: [place] [address] PATHOLOGIST [employer] EDDIE CORTÉS M.D. Performed By: #### C UU #### [address] #### VAGINITIS+ #### [facility] , Patient [...] people from 2?20 years of age. Health healthcare educator use the charts to identify underweight and [...] 08/20/2004 Document Revised: 05/13/2018 Document Reviewed: 11/11/2016 Stance Patient Education ? 2020 [employer]. [facility] Urinalysis - AUTOMATEDon Appearance (U) cloudy [employer] Other Bilirubin Ql (U) Negative [facility] Other Color (U) yellow [employer] Other Glucose Ql (U) Negative [employer] Other Hemoglobin Ql (U) Negative [employer] Other Ketones Ql (U) Negative [employer] Other Leukocyte esterase Test strip Ql (U) small [employer] Other Nitrite Ql (U) Negative [employer] Other pH (U) 8.5 [pH] [employer] Other Protein Ql (U) Negative [employer] Other Specific gravity (U) [Rel density] 1.025 [employer] Other Urobilinogen (U) [Mass/Vol] 1.0 mg/dL [employer] Other Urinalysis - AUTOMATED [employer] Other Urine Cultureon 04-08-2021 Bacteria identified Cx Nom (U) Reason for Exam Vaginal discharge Urine 75,000 colonies/ml mixed bacterial skin contaminants 2 Days PERFORMED BY: [place] [address] PATHOLOGIST [employer] EDDIE CORTÉS M.D. [facility] Comment on above: Performed By: #### C UU #### [place] [address] [place] #### VAGINITIS+ #### [facility] , Vaginitis Plus (VG+)on 04-08 Atopobium Vaginae Low - 0 Normal . [facility] Comment on above: Order Comment: Reaso n for Exam High risk bisexual behavior Performed By: #### C UU #### [address] #### VAGINITIS+ #### [facility] , BVAB2 Low - 0 Normal . [facility] Comment on above: Order Comment: Reaso n for Exam High risk bisexual behavior Performed By: #### C UU #### [address] #### VAGINITIS+ #### [facility] , Allan Albicans, YUNIOR Positive Critically abnormal Negative [facility] Comment on above: Order Comment: Reaso n for Exam High risk bisexual behavior Result Comment: This test was developed and its performance characteristics determined by [facility]. It has not been cleared or approved by the Food and Drug Administration. Performed By: #### C UU #### [address] #### VAGINITIS+ #### [facility] , Allan Glabrata, YUNIOR Negative Normal Negative [facility] Comment on above: Order Comment: Reaso n for Exam High risk bisexual behavior Result Comment: This test was developed and its performance characteristics determined by [facility]. It has not been cleared or approved by the Food and Drug Administration. PERFORMED BY: [address] [place] [address] PATHOLOGIST [employer] EDDIE CORTÉS M.D. Performed By: #### C UU #### [place] [address] [place] #### VAGINITIS+ #### [facility] , Chlamydia Trachomotis, YUNIOR Negative Normal Negative [facility] Comment on above: Order Comment: Reaso n for Exam High risk bisexual behavior Performed By: #### C UU #### [address] [place] [address] [place] #### VAGINITIS+ #### [facility] , Megasphaera [...] developed and its performance characteristics determined by [employer]. It has not been cleared or approved by the Food and Drug Administration. Performed By: #### C UU #### [address] #### VAGINITIS+ #### [facility] , Neisseria Gonorrhoeae, YUNIOR Negative Normal Negative [facility] Comment on above: Order Comment: Reaso n for Exam High risk bisexual behavior Result Comment: Perf ormed at: =G - [facility] [address] [id number] Transformer Assembly Supervisor: Kim Anderson MD, Phone: [phone] Performed By: #### C UU #### [address] #### VAGINITIS+ #### [facility] , Tric Vag YUNIOR Negative Normal Negative [facility] Comment on above: Order Comment: Reaso n for Exam High risk bisexual behavior Performed By: #### C UU #### [place] [address] [place] #### VAGINITIS+ #### [facility] , XR [...] MD 11/15/19 Final result Normal [facility] Normal right femur x-rays. [place], [place] RIGHT FEMUR X-RAYS, 11/15/2019. HISTORY: Right hip and leg pain. COMPARISON: None. FINDINGS: AP and lateral views of the right femur were obtained. Bone mineralization is normal. Alignment is normal. There is no fracture. No dislocation. No degenerative changes. [place], [place] Sam, [facility] Incoming Radiant Results From [facility] - 11/15/2019 6:01 PM EDT RIGHT FEMUR X-RAYS, 11/15/2019. HISTORY: Right hip and leg pain. COMPARISON: None. FINDINGS: AP and lateral views of the right femur were obtained. Bone mineralization is normal. Alignment is normal. There is no fracture. No dislocation. No degenerative changes. IMPRESSION: Normal right femur x-rays. [place], [place] ED Provider Noteon 9 Protein mass conc [facility] ED eMERGENCY dEPARTMENT eNCOUnter Pt Name: [...] the Claritin, Tessalon, increase fluids, rest. Take wxbo-lem-yiolmno Tylenol or ibuprofen as if her pain. [...] Discharge 08/10/2018 10:34:25 AM PATIENT REFERRED TO: [facility] [address] [facility] [id number] Call As needed DISCHARGE [...] occasionally words and phrases are mis-transcribed.) Form v2016.J.5-KARMEN Childress CNP (electronically signed) Emergency Medicine Provider KARMEN Urrutia CNP 08/10/[address] [place] [address] Vital Signs Date Time Vital Sign Value Performing Clinician Facility 07-27-2024 14:13-0500 Body weight 79.83 kg Marycarmen MELÉNDEZ Work Phone: [facility] 07-27-2024 14:13-0500 Diastolic blood pressure 70 mm[Hg] Marycarmen MELÉNDEZ Work Phone: [facility] 07-27-2024 14:13-0500 Systolic blood pressure 120 mm[Hg] Marycarmen MELÉNDEZ Work Phone: [facility] 07-20-2024 11:04-0500 Body weight 78.47 kg Eldon Kaykay DO Work Phone: [facility] 07-20-2024 11:04-0500 Diastolic blood pressure 68 mm[Hg] Eldon Kaykay DO Work Phone: [facility] 07-20-2024 11:04-0500 Systolic blood pressure 112 mm[Hg] Eldon Kaykay DO Work Phone: [facility] 07-13-2024 10:02-0500 Body weight 78.07 kg Marycarmen MELÉNDEZ Work Phone: [facility] 07-13-2024 10:02-0500 Diastolic blood pressure 68 mm[Hg] Marycarmen MELÉNDEZ Work Phone: [facility] 07-13-2024 10:02-0500 Systolic blood pressure 124 mm[Hg] Marycarmen MELÉNDEZ Work Phone: [facility] 07-06-2024 10:28-0500 Body weight 77.93 kg Eldon Kaykay DO Work Phone: [facility] 07-06-2024 10:28-0500 Diastolic blood pressure 70 mm[Hg] Eldon Kaykay DO Work Phone: [facility] 07-06-2024 10:28-0500 Systolic blood pressure 110 mm[Hg] Eldon Kaykay DO Work Phone: [facility] 06-29-2024 09:28-0500 Body weight 78.02 kg Eldon Kaykay DO Work Phone: [facility] 06-29-2024 09:28-0500 Diastolic blood pressure 64 mm[Hg] Eldon Kaykay DO Work Phone: [facility] 06-29-2024 09:28-0500 Systolic blood pressure 112 mm[Hg] Eldon Kaykay DO Work Phone: [facility] 06-22-2024 10:01-0500 Body weight 75.81 kg Marycarmen MELÉNDEZ Work Phone: [facility] 06-22-2024 10:01-0500 Diastolic blood pressure 60 mm[Hg] Marycarmen MELÉNDEZ Work Phone: [facility] 06-22-2024 10:01-0500 Systolic blood pressure 110 mm[Hg] Marycarmen MELÉNDEZ Work Phone: [facility] 06-08-2024 10:40-0500 Body weight 76.11 kg Eldon Kaykay DO Work Phone: [facility] 06-08-2024 10:40-0500 Diastolic blood pressure 60 mm[Hg] Eldon Kaykay DO Work Phone: [facility] 06-08-2024 10:40-0500 Systolic blood pressure 120 mm[Hg] Eldon Kaykay DO Work Phone: [facility] 05-24-2024 12:00-0500 Body weight 75.66 kg Eldon Kaykay DO Work Phone: [facility] 05-24-2024 12:00-0500 Diastolic blood pressure 76 mm[Hg] Eldon Kaykay DO Work Phone: [facility] 05-24-2024 12:00-0500 Systolic blood pressure 108 mm[Hg] Eldon Kaykay DO Work Phone: [facility] 05-08-2024 11:03-0500 Body weight 73.03 kg Marycarmen MELÉNDEZ Work Phone: [facility] 05-08-2024 11:03-0500 Diastolic blood pressure 72 mm[Hg] Marycarmen MELÉNDEZ Work Phone: [facility] 05-08-2024 11:03-0500 Systolic blood pressure 110 mm[Hg] Marycarmen Thibodeaux PA Work Phone: [facility] 04-17-2024 10:11-0500 Body weight 71.22 kg Eldon Kaykay DO Work Phone: [facility] 04-17-2024 10:11-0500 Diastolic blood pressure 62 mm[Hg] Eldon Kaykay DO Work Phone: [facility] 04-17-2024 10:11-0500 Systolic blood pressure 110 mm[Hg] Eldon Kaykay DO Work Phone: [facility] 03-16-2024 12:06-0400 Body weight 68.04 kg Marycarmen MELÉNDEZ Work Phone: [facility] 03-16-2024 12:06-0400 Diastolic blood pressure 66 mm[Hg] Marycarmen Thibodeaux PA Work Phone: [facility] 03-16-2024 12:06-0400 Systolic blood pressure 108 mm[Hg] Marycarmen Thibodeaux PA Work Phone: [facility] 03-08-2024 18:24-0400 Body height 165.1 cm [facility] 03-08-2024 18:24-0400 Body mass index (BMI) [Ratio] 24.7 kg/m2 [facility] 03-08-2024 18:24-0400 Body temperature 99.1 [degF] [facility] 03-08-2024 18:24-0400 Body weight 67.58 kg [facility] 03-08-2024 18:24-0400 Diastolic blood pressure 88 mm[Hg] [facility] 03-08-2024 18:24-0400 Heart rate 84 /min [facility] 03-08-2024 18:24-0400 Respiratory rate 18 /min [facility] 03-08-2024 18:24-0400 SaO2% (BldA) [Mass fraction] 96 % [facility] 03-08-2024 18:24-0400 Systolic blood pressure 130 mm[Hg] [facility] 02-17-2024 11:13-0400 Body weight 66.68 kg Marycarmen MELÉNDEZ Work Phone: [facility] 02-17-2024 11:13-0400 Diastolic blood pressure 66 mm[Hg] Marycarmen MELÉNDEZ Work Phone: [facility] 02-17-2024 11:13-0400 Systolic blood pressure 108 mm[Hg] Marycarmen MELÉNDEZ Work Phone: [facility] 02-13-2022 07:25-0400 Diastolic blood pressure 98 mm[Hg] Kevin Santoro [facility] 02-13-2022 07:25-0400 Systolic blood pressure 153 mm[Hg] Kevin Santoro [facility] 02-13-2022 06:20-0400 Body temperature 98.24 [degF] Kevin Santoro [facility] 02-13-2022 06:20-0400 Diastolic blood pressure 74 mm[Hg] Kevin Santoro [facility] 02-13-2022 06:20-0400 Heart rate 75 /min Kevin Santoro [facility] 02-13-2022 06:20-0400 Respiratory rate 20 /min Kevin Santoro [facility] 02-13-2022 06:20-0400 SaO2% (BldA) [Mass fraction] 98 % Kevin Santoro [facility] 02-13-2022 06:20-0400 Systolic blood pressure 119 mm[Hg] Kevin Santoro [facility] 10-19-2021 17:09-0400 Body temperature 98.96 [degF] Miko Yepez [facility] 10-19-2021 17:09-0400 Diastolic blood pressure 84 mm[Hg] Miko Yepez [facility] 10-19-2021 17:09-0400 Heart rate 89 /min Miko Yepez [facility] 10-19-2021 17:09-0400 Respiratory rate 17 /min Miko Yepez [facility] 10-19-2021 17:09-0400 SaO2% (BldA) [Mass fraction] 100 % Miko Yepez [facility] 10-19-2021 17:09-0400 Systolic blood pressure 138 mm[Hg] Miko Yepez [facility] 09-17-2021 15:00-0400 Body weight 61.69 kg Amy Goodrich Other [employer] Other 06-25-2021 15:15-0500 Body weight 62.6 kg Amy Goodrich Other [employer] Other 04-08-2021 14:50-0400 Body height 163.83 cm Maribel Escobedoault Other [employer] Other 04-08-2021 14:50-0400 Body mass index (BMI) [Ratio] 24.84 kg/m2 Maribel Tonia Other [employer] Other 04-08-2021 14:50-0400 Body temperature 98.2 [degF] Maribel Randall Other [employer] Other 04-08-2021 14:50-0400 Body weight 66.68 kg Maribel Randall Other [employer] Other 04-08-2021 14:50-0400 Diastolic blood pressure 80 mm[Hg] Maribel Randall Other [employer] Other 04-08-2021 14:50-0400 Respiratory rate 18 /min Maribel Randall Other [employer] Other 04-08-2021 14:50-0400 SaO2% (BldA) [Mass fraction] 100 % Maribel Randall Other [employer] Other 04-08-2021 14:50-0400 Systolic blood pressure 131 mm[Hg] Maribel Randall Other [employer] Other Encounters Encounter Date Encounter Type Care Provider Facility Start: 07-27-2024 End: 07-27-2024 ambulatory MARYCARMEN THIBODEAUX Not Available Start: 07-27-2024 End: 07-27-2024 Office outpatient visit 15 minutes Marycarmen MELÉNDEZ Work Phone: [facility] Comment on above: Third trimester preg katie; 39 weeks gestation of Start: 07-20-2024 End: 07-20-2024 Bamboo flowsheet Eldon Kaykay DO Work Phone: [facility] Start: 07-20-2024 End: 07-20-2024 Bamboo flowsheet Eldon Kaykay DO Work Phone: [facility] Start: 07-20-2024 End: 07-20-2024 ambulatory ELDON KAYKAY Not Available Start: 07-20-2024 End: 07-20-2024 Office outpatient visit 15 minutes Eldon Kaykay DO Work Phone: [facility] Comment on above: Third trimester preg katie; 38 weeks gestation of Start: 07-13-2024 End: 07-13-2024 Bamboo flowsheet Marycarmen MELÉNDEZ Work Phone: [facility] Start: 07-13-2024 End: 07-13-2024 Bamboo flowsheet Marycarmen MELÉNDEZ Work Phone: [facility] Start: 07-13-2024 End: 07-13-2024 ambulatory MARYCARMEN THIBODEAUX Not Available Start: 07-13-2024 End: 07-13-2024 Office outpatient visit 15 minutes Marycarmen MELÉNDEZ Work Phone: [facility] Comment on above: Third trimester preg katie; 37 weeks gestation of Start: 07-06-2024 End: 07-11-2024 Clinisync Result Encounter Eldon Kaykay DO Work Phone: [facility] Unsolicited Start: 07-06-2024 End: 07-11-2024 Clinisync Result Encounter Eldon Kaykay DO Work Phone: [facility] Unsolicited Start: 07-06-2024 End: 07-06-2024 Office outpatient visit 15 minutes Eldon Kaykay DO Work Phone: [facility] Comment on above: Third trimester preg katie; 36 weeks gestation of ; Ear infection Start: 07-06-2024 End: 07-06-2024 ambulatory ELDON KAYKAY Not Available Start: 06-29-2024 End: 06-29-2024 Clinisync Result Encounter Marycarmen MELÉNDEZ Work Phone: [facility] Unsolicited Start: 06-29-2024 End: 06-29-2024 Clinisync Result Encounter Marycarmen MELÉNDEZ Work Phone: [facility] Unsolicited Start: 06-29-2024 End: 06-29-2024 Office outpatient visit 15 minutes Eldon Kaykay DO Work Phone: [facility] Comment on above: Third trimester preg katie; 35 weeks gestation of Start: 06-29-2024 End: 06-29-2024 ambulatory ELDON KAYKAY Not Available Start: 06-22-2024 End: 06-22-2024 Bamboo flowsheet Marycarmen MELÉNDEZ Work Phone: [facility] Start: 06-22-2024 End: 06-22-2024 Bamboo flowsheet Marycarmen MELÉNDEZ Work Phone: [facility] Start: 06-22-2024 End: 06-22-2024 Clinisync Result Encounter Eldon Kaykay DO Work [...] Bamboo flowsheet Eldon Kaykay DO Work Phone: [facility] Start: 05-24-2024 End: 05-24-2024 Office outpatient visit 15 minutes Eldon Kaykay DO Work Phone: [facility] Comment on above: Third trimester preg katie; 30 weeks gestation of ; Anemia during in third trimester; Excessive growth affecting management of , antepartum, single or unspecified fetus Start: 05-24-2024 End: 05-24-2024 ambulatory ELDON KAYKAY Not Available Start: 05-09-2024 End: 05-09-2024 Clinisync Result Encounter Eldon Kaykay DO Work Phone: [facility] External Department Unsolicited Start: 05-09-2024 End: 05-09-2024 Clinisync Result Encounter Eldon Kaykay DO Work Phone: [facility] External Department Unsolicited Start: 05-08-2024 End: 05-08-2024 Bamboo flowsheet Marycarmen MELÉNDEZ Work Phone: [facility] Start: 05-08-2024 End: 05-08-2024 Bamboo flowsheet Marycarmen MELÉNDEZ Work Phone: [facility] Start: 05-08-2024 End: 05-08-2024 ambulatory MARYCARMEN THIBODEAUX Not Available Start: 05-08-2024 End: 05-08-2024 Office outpatient visit 15 minutes Marycarmen MELÉNDEZ Work Phone: [facility] Comment on above: Third trimester preg katie; 29 weeks gestation of Start: 04-17-2024 End: 04-17-2024 Bamboo flowsheet Eldon Kaykay DO Work Phone: [facility] Start: 04-17-2024 End: 04-17-2024 Bamboo flowsheet Eldon Kaykay DO Work Phone: [facility] Start: 04-17-2024 End: 04-17-2024 ambulatory [...] visit 15 minutes Marycarmen MELÉNDEZ Work Phone: [facility] Comment on above: 20 weeks gestation o f (Primary Dx); Second trimester ; Constipation, unspecified constipation type Start: 03-08-2024 End: 03-08-2024 ambulatory [facility] Work Phone: Start: 03-08-2024 End: 03-08-2024 Patient encounter procedure [facility] Work Phone: Start: 02-17-2024 End: 02-17-2024 Bamboo flowsheet Marycarmen MELÉNDEZ Work Phone: [facility] Start: 02-17-2024 End: 02-19-2024 Bamboo [...] visit 15 minutes Marycarmen MELÉNDEZ Work Phone: [facility] Comment on above: Screening, , for anatomic survey; Well woman exam with routine gynecological exam; 17 weeks gestation of ; Screen for STD (sexually transmitted disease); Vaginal discharge; Nonintractable headache, unspecified chronicity pattern, unspecified headache type Start: 02-17-2024 End: 02-17-2024 Patient encounter procedure Marycarmen MELÉNDEZ Work Phone: [facility] Start: 01-20-2024 End: 01-20-2024 ambulatory ELDON MCCRACKEN Not Available Start: 08-12-2023 End: 08-12-2023 ambulatory AMBREEN DAN Not Available Start: 07-10-2022 End: 07-10-[address] NASEEM VEE Facility:[facility] Start: 06-17-2022 End: 06-17-[address] JAYSON FIORE Facility:[facility] Start: 03-02-2022 End: 03-02-2022 ambulatory Lucia Thorne Facility:[facility] Start: 03-02-2022 End: 03-02-2022 Departed Referred MD Lucia Thorne Work Phone: [facility] Start: 02-13-2022 End: 02-13-2022 Emergency department patient visit Kevin Alvaradoe [facility] Start: 02-03-2022 End: 02-03-2022 Patient encounter procedure CAITIE MARSHALL [facility] Start: 01-15-2022 End: 01-16-[address] JOE PEREZ Facility:[facility] Start: 10-19-2021 End: 10-19-2021 Emergency department patient visit Miko Yepez [facility] Start: 09-19-2021 End: 09-20-[address] JOE PEREZ Facility:[facility] Start: 09-17-2021 End: 09-17-2021 ambulatory Amy Goodrich Other [employer] Other Start: 09-17-2021 Office outpatient vi sit 15 minutes Amy Kp [facility] Start: 08-05-2021 End: 08-05-2021 ambulatory Amy Goodrich Facility:[facility] Start: 08-01-2021 End: 08-01-2021 ambulatory Amy Goodrich Other [employer] Other Start: 08-01-2021 Telephone encounter Amy Goodrich [facility] Start: 07-29-2021 Telephone encounter Amy Goodrich [facility] Start: 07-29-2021 End: 07-29-2021 ambulatory Amy [facility] [email or web address] Other Start: 07-25-2021 End: 07-25-2021 ambulatory Amy Goodrich Facility:[facility] Start: 07-16-2021 End: 07-16-2021 ambulatory Amy Goodrich Facility:[facility] Start: 06-25-2021 End: 06-25-2021 ambulatory Amy Goodrich Other [employer] Other Start: 06-25-2021 Office outpatient vi sit 25 minutes Amy Goodrich [facility] Start: 04-08-2021 End: 04-08-2021 ambulatory Maribel Randall Facility:[facility] Start: 04-08-2021 Office outpatient vi sit 15 minutes Maribel Randall [facility] Start: 11-15-2019 End: 11-18-2019 Patient encounter procedure MICHAEL YEPEZ [facility] Start: 11-15-2019 End: 11-17-2019 Subsequent hospital visit by physician Pauline Gallardo [facility] Comment on above: Injury of right knee , initial encounter Start: 11-15-2019 End: 11-18-2019 Patient encounter procedure MICHAEL YEPEZ [facility] Start: 11-15-2019 End: 11-17-2019 Subsequent hospital visit by physician Joe Perez [facility] Start: 08-10-2018 Emergency department patient visit UNKNOWN PROVIDER [facility] Procedures Date Procedure Procedure Detail Performing Clinician Start: 07-27-2024 Urnls dip stick/tabl et rgnt non-auto w/o micrscp Marycarmen MELÉNDEZ Work Phone: Start: 07-13-2024 Urnls dip stick/tabl et rgnt non-auto w/o micrscp Marycarmen MELÉNDEZ Work Phone: Start: 07-06-2024 Urnls dip stick/tabl et rgnt non-auto w/o micrscp Eldon Kaykay DO Work Phone: Start: 07-06-2024 ALL MISCELLANEOUS TEST Eldon Kaykay DO Work Phone: Start: 06-29-2024 [facility] Marycarmen MELÉNDEZ Work Phone: Start: 06-29-2024 Urnls dip stick/tabl et rgnt non-auto w/o micrscp Eldon Kaykay DO Work Phone: Start: 06-22-2024 ALL CBC WITH AUTO DIFF Eldon Kaykay DO Work Phone: Start: 06-22-2024 Urnls dip stick/tabl et rgnt non-auto w/o micrscp Marycarmen MELÉNDEZ Work Phone: Start: 06-08-2024 Urnls dip stick/tabl [...] dip stick/tabl et rgnt non-auto w/o micrscp Marycaremn MELÉNDEZ Work Phone: Start: 04-17-2024 Urnls dip stick/tabl et rgnt non-auto w/o micrscp Eldon Mccracken DO Work Phone: Start: 03-16-2024 Urnls dip stick/tabl et rgnt non-auto w/o micrscp Marycarmen MELÉNDEZ Work Phone: Start: 03-08-2024 Quick Strep (POC) Start: 02-17-2024 URETHRITIS/DISCHARGE PLUS VAGINITIS (HTRX) Marycarmen MELÉNDEZ Work Phone: Start: 02-17-2024 AFP, SERUM, OPEN SPI NA BIFIDA Eldon Mccracken DO Work Phone: Start: 02-17-2024 Urnls dip stick/tabl et rgnt non-auto w/o micrscp Marycarmen MELÉNDEZ Work Phone: Start: 01-24-2020 Arthroscopy of knee Miko Yepez Start: 11-15-2019 Radiologic examinati on femur minimum 2 views MICHAEL SMALLS Start: 11-15-2019 Radiologic examinati on femur minimum 2 views Michael Smalls Other Phone: Plan of Treatment Date Care Activity Detail Author Start: 07-27-2024 End: 07-27-2024 Patient encounter procedure 07/27/2024 10:50 AM EST Routine [facility] [address] [place] [address] Marycarmen Thibodeaux PA [address] [place] [address] [facility] Start: 07-20-2024 End: 07-20-2024 Patient encounter procedure 07/20/2024 10:30 AM EST Routine [facility] [address] [place] [address] Eldon Mccracken, DO [address] [place] [address] [facility] Start: 07-13-2024 End: 07-13-2024 Patient encounter procedure 07/13/2024 9:50 AM EST Routine [facility] [address] [facility] [place] [id number] Marycarmen Thibodeaux PA [address] [place] [address] [facility] Start: 07-06-2024 End: 07-06-2025 CULTURE, GROUP B STREP WITH SUSCEPTIBLITY CULTURE, GROUP B STREP WITH SUSCEPTIBLITY Lab Routine Third trimester Expected: 07/06/2024, Expires: 07/06/2025 [facility] Work Phone: Comment on above: Expected: 07/06/2024 , Expires: 07/06/2025 Start: 07-06-2024 End: 07-06-2024 Patient encounter procedure 07/06/2024 10:20 AM EST Routine [facility] [address] [place] [phone] Eldon Mccracken, DO [address] [place] [address] [facility] Start: 07-06-2024 End: 07-06-2024 Professional / ancillary services management 07/06/2024 9:30 AM EST Ancillary Procedure [facility] [address] [place] [address] [facility] Start: 06-29-2024 End: 06-29-2024 Patient encounter procedure 06/29/2024 9:00 AM EST Routine [facility] [address] [place] [phone] Eldon Mccracken, DO [address] [place] [address] [facility] Start: 06-22-2024 End: 06-22-2024 Patient encounter procedure 06/22/2024 9:50 AM EST Routine [facility] [address] [place] [phone] Marycarmen Thibodeaux PA [address] [place] [address] [facility] Start: 06-08-2024 End: 06-08-2025 US for US OB SCAN FOR GROWTH Imaging Routine Excessive growth affecting management of , antepartum, single or unspecified fetus Expected: 06/08/2024 (Approximate), Expires: 06/08/2025 [facility] Work Phone: Comment on above: Expected: 06/08/2024 (Approximate), Expires: 06/08/2025 Start: 06-08-2024 End: 06-08-2024 Patient encounter procedure 06/08/2024 10:10 AM EST Routine [facility] [address] [address] Eldon Mccracken DO [address] [facility] [place] [address] [facility] Start: 06-05-2024 End: 06-05-2024 Professional / ancillary services management 06/05/2024 10:30 AM EST Ancillary Procedure [facility] [address] [facility] [place] [address] [facility] Start: 05-24-2024 End: 05-24-2025 [...] AM EST Routine [facility] [address] [place] [address] Marycarmen Thibodeaux, PA [address] [place] [address] [facility] Start: 04-17-2024 End: 04-17-2025 CBC panel - Blood by Automated count CBC Lab Routine Diabetes mellitus screening Expected: 04/17/2024 (Approximate), Expires: 04/17/2025 [facility] Work Phone: Comment on above: Expected: 04/17/2024 (Approximate), Expires: 04/17/2025 Start: 04-17-2024 End: 04-17-2025 Measurement of glucose 1 hour after glucose challenge for glucose tolerance test Glucose tolerance, 1 hour Lab Routine Diabetes mellitus screening Expected: 04/17/2024 (Approximate), Expires: 04/17/2025 [facility] Comment on above: Expected: 04/17/2024 (Approximate), Expires: 04/17/2025 Start: 04-17-2024 End: 04-17-2024 Patient encounter procedure 04/17/2024 9:50 AM EST Routine [facility] [address] [phone] Eldon Mccracken DO [address] [facility] [place] [address] [facility] Start: 03-16-2024 End: 03-16-2024 Patient encounter procedure 03/16/2024 11:30 AM EDT Routine [facility] [address] [phone] Marycarmen Thibodeaux, PA [address] [place], [place] [id number] [facility] Start: 03-16-2024 End: 03-16-2024 Professional / ancillary services management 03/16/2024 10:30 AM EDT Ancillary Procedure [facility] [address] [place] [address] [facility] Start: 02-17-2024 End: 02-16-2025 Alpha fetoprotein, maternal Alpha fetoprotein, maternal Lab Routine 17 weeks gestation of Expected: 02/17/2024 (Approximate), Expires: 02/16/2025 [facility] Comment on above: Expected: 02/17/2024 (Approximate), Expires: 02/16/2025 Start: 02-17-2024 End: 02-16-2025 US for US OB ANATOMY SINGLE W US OB CERVICAL LENGTH Imaging Routine Screening, , for anatomic survey Expected: 02/17/2024 (Approximate), Expires: 02/16/2025 [facility] Comment on above: Expected: 02/17/2024 (Approximate), Expires: 02/16/2025 Start: 02-13-2024 Influenza vaccination Influenza Vacc ine (#1) [facility] Start: 02-13-2020 Influenza vaccination Flu vacc ine (Season Ended) [place], [place] Start: 2018 Meningococcal (ACWY) vaccine (1 - 2-dose series) Meningococcal (ACWY) vaccine (1 - 2-dose series) [place] Start: 2018 Screening for Chlamy nkechi trachomatis Chlamydia screen [place], [place] Start: 2017 HIV screening HIV screen [place], [place] Start: 2013 HPV vaccine (1 - 2-d ose series) HPV vaccine (1 - 2-dose series) [place] Start: 2009 DTaP/Tdap/Td vaccine (1 - Tdap) DTaP/Tdap/Td vaccine (1 - Tdap) [place] Start: 2003 Hepatitis A vaccine (1 of 2 - 2-dose series) Hepatitis A vaccine (1 of 2 - 2-dose series) [place] Start: 2003 Measles,Mumps,Rubell a (MMR) vaccine (1 of 2 - Standard series) Measles,Mumps,Rubella (MMR) vaccine (1 of 2 - Standard series) [place] Start: 2003 Varicella vaccine (1 of 2 - 2-dose childhood series) Varicella vaccine (1 of 2 - 2-dose childhood series) [place] Start: 2002 Polio vaccine (1 of 3 - 4-dose series) Polio vaccine (1 of 3 - 4-dose series) [place] Start: 2002 Hepatitis B vaccine (1 of 3 - 3-dose primary series) [place] Atopobium vaginae DN A [Presence] in Vaginal fluid by YUNIOR with probe detection [facility] Work Phone: Bacteria identified in Urine by Culture [facility] Bacterial vaginosis associated bacterium 2 DNA [Presence] in Vaginal fluid by YUNIOR with probe detection [facility] Work Phone: CHLAMYDIA TRACHOMATI S (GENITO/STI) CHLAMYDIA TRACHOMATIS (GENITO/STI) Lab Routine 17 weeks gestation of Screen for STD (sexually transmitted disease) Vaginal discharge Ordered: 02/17/2024 [facility] Comment on above: Ordered: 02/17/2024 Cytology Cervical or vaginal smear or scraping study Pap Smear Pathology and Cytology Routine Well woman exam with routine gynecological exam Ordered: 02/17/2024 [facility] Work Phone: Comment on above: Ordered: 02/17/2024 Megasphaera sp type 1 DNA [Presence] in Vaginal fluid by YUNIOR with probe detection [facility] Work Phone: Neisseria gonorrhoea e DNA [Presence] in Unspecified specimen by YUNIOR with probe detection Neisseria gonorrhea DNA probe, direct Lab Routine 17 weeks gestation of Screen for STD (sexually transmitted disease) Vaginal discharge Ordered: 02/17/2024 [facility] Comment on above: Ordered: 02/17/2024 SURESWAB(R) ADVANCED VAGINITIS PLUS, TMA SURESWAB(R) ADVANCED VAGINITIS PLUS, TMA Pathology and Cytology Routine 17 weeks gestation of Screen for STD (sexually transmitted disease) Vaginal discharge Ordered: 02/17/2024 [facility] Comment on above: Ordered: 02/17/2024 Payers Date Payer Category Payer Medicaid 2022 Unknown [id number] 2021 Self-pay [id number] 2018 Unknown [employer] xxxxxxxxxxx 2018-Present [phone] [address] [place] [address] xxxxxxxxxxx [id number] 2018 Unknown [id number] 2002 Unknown [id number] 2.16.840.1.707984.3.579.2. 593 2002 Unknown [id number] 2.16.840.1.776848.3.579.2. 593 2002 Unknown [id number] 2.16.840.1.896470.3.579.2. 593 2002 Unknown [id number] 2.16.840.1.025480.3.579.2. 593 2002 Unknown [id number] 2.16.840.1.850168.3.579.2. 1259 2002 Unknown [id number] 2.16.840.1.881586.3.579.2. 1259 2002 Unknown [id number] 2.16.840.1.022393.3.579.2. 1259 2002 Unknown [id number] 2.16.840.1.116118.3.579.2. 1259 2002 Unknown [id number] 2.16.840.1.984342.3.579.2. 1259 2002 Unknown [id number] 2.16.840.1.529440.3.579.2. 1259 2002 Unknown [id number] 2.16.840.1.824043.3.579.2. 9 2002 Unknown [id number] 2.16.840.1.418598.3.579.2. 1259 2002 Unknown [id number] 2.16.840.1.833960.3.579.2. 1258 2002 Unknown [id number] 2.16.840.1.586308.3.579.2. 9 2002 Unknown [id number] 2.16.840.1.914673.3.579.2. 9 2002 Unknown [id number] 2.16.840.1.075120.3.579.2. 9 2002 Unknown [id number] 2.16.840.1.961725.3.579.2. 9 2002 Unknown [id number] 2.16.840.1.187993.3.579.2. 1259 1989 Unknown [id number] 2.16.840.1.377573.3.579.2. 174 1989 Unknown [id number] 2.16.840.1.290205.3.579.2. 174 1984 Unknown [id number] 2.16.840.1.592082.3.579.2. 668 1959 Medicaid [id number] Private Health Insurance [facility] [id number] Unknown [id number] 2.16.840.1.884303.3.579.2. 531 Unknown [id number] 2.16.840.1.618678.3.579.2. 531 Unknown [id number] 2.16.840.1.861788.3.579.2. 531 Unknown [id number] 2.16.840.1.735659.3.579.2. 531 Unknown [id number] 2.16.840.1.172318.3.579.2. 531 Unknown [id number] 2.16.840.1.378438.3.579.2. 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) [place], [place] Start: 2002 Sex Assigned At Not on file [place] Start: 07-19-2024 Sex Assigned At Female N Differential Other Tobacco smoking status No Smoking Status Entered [facility] Start: 2002 Sex Assigned At Female F [facility] Start: 08-20-2023 Tobacco smoking status ILIS Unknown if ever smoked [facility] Start: 11-10-2023 [facility] Start: 07-19-2024 History of Social function [facility] Functional Status Date Assessment Result Facility 02-13-2022 Functional Status N/A [facility] Clinical Notes 04-08-2021 to 07-27-2024 MEDHAT Conde - 07/27/2024 1:40 PM Aurelio Jade PHYSICIAN OPHTHALMOLOGIST - 07/20/2024 10:30 AM MEDHAT Meeks - 07/13/2024 9:50 AM Aurelio Jade PHYSICIAN OPHTHALMOLOGIST - 07/06/2024 10:10 AM EST Note Date & Type Note Facility 07-27-2024 History of Presen t illness Narrative Reason for Appointment: Patient ID: Maribel Velez is a 23 y.o. female who presents for Routine Visit Patient presents today for Return OB appointment. MEDICATIONS Current Outpatient Medications Medication Instructions magnesium oxide (MAG-OX) 400 mg, Oral, Daily Pgrjueoi-Ier-Lf-FA ( 1 + IRON PO) Take by mouth ALLERGIES Allergies Allergen Reactions Red Dye Other Reaction(s): Swelling of Lip/Tongue/Throat Red Dye #40 (Allura Red) Rash Other Reaction(s): Unknown PROBLEMS Active Ambulatory Problems Diagnosis Date Noted [...] Weight as of 04/04/20: 130 lb. BP: 120/70 Patient's last menstrual period was 10/27/2023. ASSESSMENT & PLAN ICD-10-CM 1. Third trimester Z34.93 POCT urinalysis dipstick manually resulted 2. 39 weeks gestation of Z3A.39 Return OB: Patient presents today for a routine obstetrics appointment. Patient is currently 39w1d . Patient states she is doing well [...] of: MEDHAT Conde documented in this encounter [facility] 07-20-2024 History of Presen t illness Narrative Reason for Appointment: Patient ID: Maribel Velez is a 23 y.o. female who presents for Routine Visit Patient presents today for Return OB appointment. MEDICATIONS Current Outpatient Medications Medication Instructions magnesium oxide (MAG-OX) 400 mg, Oral, Daily Ofvhlhzg-Rgk-Xa-FA ( 1 + IRON PO) Take by mouth ALLERGIES Allergies Allergen Reactions Red Dye Other Reaction(s): Swelling of Lip/Tongue/Throat Red Dye #40 (Allura Red) Rash Other Reaction(s): Unknown PROBLEMS Active Ambulatory Problems Diagnosis Date Noted [...] Constitutional: Appearance: Normal appearance. She is well-developed. Genitourinary: Vulva normal. Cardiovascular: Rate and Rhythm: Normal rate and [...] nursing note reviewed. Exam conducted with a bread distributor present. Vitals: Estimated body mass index is 21.8 kg/m as calculated from the following: Height as of 04/04/20: 5' 4.75 . Weight as of 04/04/20: 130 lb. BP: 112/68 Patient's last menstrual period was 10/27/2023. ASSESSMENT & PLAN ICD-10-CM 1. Third trimester Z34.93 2. 38 weeks gestation of Z3A.38 Patient presents today for a routine obstetrics appointment. Patient is currently 38w1d with a Estimated Date of Delivery: 08/02/24. Pelvic exam performed and patient is not dilated. Patient to return to clinic in 1 week. Documented by Carole Jade LPN on behalf of: Eldon Mccracken DO documented in this encounter [facility] 07-13-2024 History of Presen t illness Narrative Reason for Appointment: Patient ID: Maribel Velez is a 23 y.o. female who presents for Routine Visit Patient presents today for Return OB appointment. MEDICATIONS Current Outpatient Medications Medication Instructions cephalexin (KEFLEX) 500 mg, Oral, 2 times daily magnesium oxide (MAG-OX) 400 mg, Oral, Daily Iccctafg-Nms-Xw-FA ( 1 + IRON PO) Take by mouth ALLERGIES Allergies Allergen Reactions Red Dye Other Reaction(s): Swelling of Lip/Tongue/Throat Red Dye #40 (Allura Red) Rash Other Reaction(s): Unknown PROBLEMS Active Ambulatory Problems Diagnosis Date Noted [...] Weight as of 04/04/20: 130 lb. BP: 124/68 Patient's last menstrual period was 10/27/2023. ASSESSMENT & PLAN ICD-10-CM 1. Third trimester Z34.93 POCT urinalysis dipstick manually resulted 2. 37 weeks gestation of Z3A.37 Return OB: Patient presents today for a routine obstetrics appointment. Patient is currently 37w1d . Patient states she is doing well [...] of: MEDHAT Conde documented in this encounter [facility] 07-06-2024 History of Presen t illness Narrative Reason for Appointment: Patient ID: Maribel Velez is a 23 y.o. female who presents for Routine Visit Patient presents today for Return OB appointment. MEDICATIONS Current Outpatient Medications Medication Instructions cephalexin (KEFLEX) 500 mg, Oral, 2 times daily magnesium oxide (MAG-OX) 400 mg, Oral, Daily Ijwzzhvq-Dca-Fp-FA ( 1 + IRON PO) Take by mouth ALLERGIES Allergies Allergen Reactions Red Dye Other Reaction(s): Swelling of Lip/Tongue/Throat Red Dye #40 (Allura Red) Rash Other Reaction(s): Unknown PROBLEMS Active Ambulatory Problems Diagnosis Date Noted [...] SYSTEMS Review of Systems: Review of Systems OBJECTIVE Objective: Physical Exam Constitutional: Appearance: Normal appearance. She is well-developed. Genitourinary: Vulva normal. Cardiovascular: Rate and Rhythm: Normal rate and [...] nursing note reviewed. Exam conducted with a bread distributor present. Vitals: Estimated body mass index is 21.8 kg/m as calculated from the following: Height as of 04/04/20: 5' 4.75 . Weight as of 04/04/20: 130 lb. BP: 110/70 Patient's last menstrual period was 10/27/2023. ASSESSMENT & PLAN ICD-10-CM 1. Third trimester Z34.93 POCT urinalysis dipstick manually resulted CULTURE, GROUP B STREP WITH SUSCEPTIBLITY CULTURE, GROUP B STREP WITH SUSCEPTIBLITY 2. 36 weeks gestation of Z3A.36 POCT urinalysis dipstick manually resulted 3. Ear infection H66.90 cephalexin (Keflex) 500 MG capsule Patient is doing well but has complaints of being tired and having maternal discomfort due to . Patient verbalized frequent movement and was instructed to perform kick counts three times per day. labor precautions were given, LARC consent was signed/declined, and GBS was obtained. Orders Placed This Encounter Procedures CULTURE, GROUP B STREP WITH SUSCEPTIBLITY POCT urinalysis dipstick manually resulted Follow Up: Patient is to return to office in 1 week for routine OB appointment Documented by Carole Jade LPN on behalf of: Eldon Mccracken DO documented in this encounter [facility] 06-29-2024 History of Presen t illness Narrative Reason for Appointment: Patient ID: Maribel Velez is a 23 y.o. female who presents for Routine Visit Patient presents today for Return OB appointment. MEDICATIONS Current Outpatient Medications Medication Instructions magnesium oxide (MAG-OX) 400 mg, Oral, Daily Uhnvjvcr-Flb-Pk-FA ( 1 + IRON PO) Take by mouth ALLERGIES Allergies Allergen Reactions Red Dye Other Reaction(s): Swelling of Lip/Tongue/Throat Red Dye #40 (Allura Red) Rash Other Reaction(s): Unknown PROBLEMS Active Ambulatory Problems Diagnosis Date Noted [...] nursing note reviewed. Exam conducted with a bread distributor present. Vitals: Estimated body mass index is 21.8 kg/m as calculated from the following: Height as of 04/04/20: 5' 4.75 . Weight as of 04/04/20: 130 lb. BP: 112/64 Patient's last menstrual period was 10/27/2023. ASSESSMENT & PLAN ICD-10-CM 1. Third trimester Z34.93 Urine dip 2. 35 weeks gestation of Z3A.35 Urine dip Patient presents today for a routine obstetrics appointment. Patient is currently 35w1d with a Estimated Date of Delivery: 08/02/24. Discussed having GBS done at next appointment. Patient would like to have IOL 08/02/24. Patient to return to clinic in 1 week for GBS/routine OB appointment. Documented by Carole Jade LPN on behalf of: Eldon Mccracken DO documented in this encounter [facility] 06-22-2024 History of Presen t illness Narrative Reason for Appointment: Patient ID: Maribel Velez is a 23 y.o. female who presents for Routine Visit Patient presents today for Return OB appointment. MEDICATIONS Current Outpatient Medications Medication Instructions magnesium oxide (MAG-OX) 400 mg, Oral, Daily Bhlkutmp-Joq-Vd-FA ( 1 + IRON PO) Take by [...] nursing note reviewed. Exam conducted with a bread distributor present. Vitals: Estimated body mass index is [...] of: MEDHAT Conde documented in this encounter [facility] 06-08-2024 History of Presen t illness Narrative Reason for Appointment: Patient ID: Maribel Velez is a 23 y.o. female who presents for Routine Visit Patient presents today for Return OB appointment. MEDICATIONS Current Outpatient Medications Medication Instructions magnesium oxide (MAG-OX) 400 mg, Oral, Daily Pjewpxjf-Dti-Ov-FA ( 1 + IRON PO) Take by [...] nursing note reviewed. Exam conducted with a bread distributor present. Vitals: Estimated body mass index is [...] Eldon Mccracken DO documented in this encounter [facility] 05-24-2024 History of Presen t illness Narrative Reason for Appointment: Patient ID: Maribel Velez is a 23 y.o. female who presents for Routine Visit Patient presents today for Return OB appointment. MEDICATIONS Current Outpatient Medications Medication Instructions albuterol (ProAir Digihaler) 90 mcg/act breath-activated inhaler (w/ sensor) 2 puffs, Inhalation, Every 4 hours PRN magnesium oxide (MAG-OX) 400 mg, Oral, Daily Jdjrdptt-Bcq-Sn-FA ( 1 + IRON PO) Oral ALLERGIES [...] nursing note reviewed. Exam conducted with a bread distributor present. Vitals: Estimated body mass index is [...] Eldon Mccracken DO documented in this encounter [facility] 05-08-2024 History of Presen t illness Narrative Reason for Appointment: Patient ID: Maribel Velez is a 23 y.o. female who presents for Routine Visit Patient presents today for Return OB appointment. MEDICATIONS Current Outpatient Medications Medication Instructions albuterol (ProAir Digihaler) 90 mcg/act breath-activated inhaler (w/ sensor) 2 puffs, Inhalation, Every 4 hours PRN magnesium oxide (MAG-OX) 400 mg, Oral, Daily Hrszbiph-Cen-Vg-FA ( 1 + IRON PO) Oral ALLERGIES [...] of: MEDHAT Conde documented in this encounter [facility] 04-17-2024 History of Presen t illness Narrative Reason for Appointment: Patient ID: Maribel Velez is a 23 y.o. female who presents for Routine Visit Patient presents today for Return OB appointment. MEDICATIONS Current Outpatient Medications Medication Instructions albuterol (ProAir Digihaler) 90 mcg/act breath-activated inhaler (w/ sensor) 2 puffs, Inhalation, Every 4 hours PRN magnesium oxide (MAG-OX) 400 mg, Oral, Daily Xbtjesmx-Fal-Zv-FA ( 1 + IRON PO) Oral ALLERGIES [...] nursing note reviewed. Exam conducted with a bread distributor present. Vitals: Estimated body mass index is [...] Eldon Mccracken DO documented in this encounter [facility] 03-16-2024 History of Presen t illness Narrative [...] magnesium oxide (MAG-OX) 400 mg, Oral, Daily Tkpqauii-Lxs-Ht-FA ( 1 + IRON PO) Oral ALLERGIES [...] of: MEDHAT Conde documented in this encounter [facility] 02-17-2024 History of Presen t illness Narrative Reason for Appointment: Patient ID: Maribel Velez is a 23 y.o. female who presents for Routine Visit Patient presents today for Return OB appointment. MEDICATIONS Current Outpatient Medications Medication Instructions magnesium oxide (MAG-OX) 400 mg, Oral, Daily Trrzekzy-Ltp-Jd-FA ( 1 + IRON PO) Oral ALLERGIES [...] of: MEDHAT Conde documented in this encounter [facility] 02-13-2022 Evaluation + Plan note Extrac kasey from: Title:ED Note Author:Ana Braxton DO Dominik Date :02/13/22 Acute hemorrhoid (K64.9: Uns pecified [...] should change or worsen. Diagnosis: Rectal bleeding [facility]09-02-2022 Hospital Discharge instructions Patient Education 02/13/2022 07:28:37 Rectal Bleeding, Snsg-cz-Iwai Rectal Bleeding Rectal bleeding is when blood [...] 02/10/2012 Document Revised: 05/13/2018 Document Reviewed: 07/26/2016 [employer] Patient Education 2020 [employer]. 02/13/2022 07:28:37 Hemorrhoids, Sqpz-dz-Yghe Hemorrhoids Hemorrhoids are swollen veins that may [...] 3 times a day. General instructions Take jksd-fca-lmvhvjs and prescription medicines only as told by [...] 03/09/2009 Document Revised: 06/08/2019 Document Reviewed: 10/20/2018 [employer] Patient Education 2020 [employer]. Follow Up Care 02/13/2022 06:18:09 With:Yu GREENE Address: [facility] [address] [place] [address]- Business (1) When:02/16/2022 07:21:18 With:CAITIE MARSHALL Address:Unknown When:Within 3 Day(s) [facility]05-08-2022 Hospital Discharge instructions Patient Education 10/19/2021 17:18:27 Viral Respiratory Infection, Saqs-Ls-Ltpm Viral Respiratory Infection A viral respiratory infection [...] at home: Managing pain and congestion Take aqxg-bvp-vmypcmy and prescription medicines only as told by [...] and water are not available, use hand act tutor. Avoid contact with people who are sick [...] 05/13/2009 Document Revised: 06/08/2019 Document Reviewed: 07/11/2018 [employer] Patient Education 2019 [employer]. Follow Up Care 10/19/2021 17:07:38 With:Michelle Mata Address:Unknown When:10/22/2021 [facility]04-06-2022 Evaluation note* Encounter Date Diagnosis Assessment Notes Treatment Notes Treatment Clinical Notes Sep, Rectal bleeding (ICD-10 - K62.5) PATIENT STATES THIS HAPPENS EVERY COUPLE OF MONTHS Sep, Abdominal pain (ICD-10 - R10.9) PATIENT DID HAVE THIS LAST NIGHT ON THE RIGHT SIDE UNDER HER RIBS PATIENT DOES CONTINUE ON THE MEDICATION WILL ORDER SOME TESTING Sep, Diarrhea (ICD-10 - R19.7) [facility] Other 02-15-2022 Evaluation note* Encounter Date Diagnosis Assessment Notes Treatment Notes Treatment Clinical Notes Jul, Blood in stool (ICD-10 - K92.1) Jul, Abdominal pain (ICD-10 - R10.9) [facility] Other 01-12-2022 Evaluation note* Encounter Date Diagnosis Assessment Notes Treatment Notes Treatment Clinical Notes Jun, Diarrhea (ICD-10 - R19.7) Jun, Rectal bleeding (ICD-10 - K62.5) PATIENT ENCOURAGED TO HAVE A COLONOSCOPY START ABOVE MEDICATION Jun, Abdominal pain (ICD-10 - R10.9) [facility] Other 10-26-2021 Evaluation note* Encounter Date Diagnosis [...] up to a week to get back. [facility] Other Chief complaint+Reason for visit Narrative* Chief Complaint Cough, sinus congest ion Reason for Visit Contact with and (mckee spected) exposure to covid-19 Sore throat [facility] Work Phone: Evaluation + Plan note No data available for this section [facility] InformationNort Salezeo Other Evaluation noteNo assessment information available [facility] Work Phone: Evaluation note* Diagnosis Onset Date Resolution Status Contact with and (suspected) exposure to covid-19 noneactive Sore throat noneactive [facility] Work Phone: Evaluation note* Diagnosis 20 weeks [...] state, incidental [facility] Diagnosis Third trimester state, incidental 36 weeks gestation of Ear infection Unspecified otitis media [facility] Diagnosis Third trimester state, incidental 35 weeks gestation of [facility] Diagnosis Third trimester state, incidental 37 weeks gestation of [facility] Diagnosis Third trimester state, incidental 38 weeks gestation of [facility] Diagnosis Third trimester state, incidental 39 weeks gestation of [facility] Narrative - Reported* Type Description Date Medical History IBS Medical History Constipation Medical History allergies Surgical History right torn lateral meniscus [facility] Other Hospital Discharge instructions No data available for this section [facility] data available for this section [facility] Summary Purpose Family History No Family [...] FoundDocuments on File Type Date Recorded Patient [employer] anation Advance Directives and Living Will Power of Inside Phone Sales Advance Directive Response Recorded Date/ Time Advance Directives No April 16, 2021 2:28pm Advance Directive Response Recorded Date/ Time Advance Directives No August 19 3:12pm Assessments Diagnosis Injury of right knee, initial encounter Chief Complaint and Reason for Visit Chief Complaint Dysuria Vaginal odor Additional Source Comments INFORMATION SOURCE (unrecogn ized section and content) DATE CREATED AUTHOR 08/20/2018 [facility] DATE CREATED AUTHOR AUTHOR'S ORGANIZ ATION 11/18/2019 [facility] DATE CREATED AUTHOR AUTHOR'S ORGANIZ ATION 02/17/2022 [facility] DATE CREATED AUTHOR AUTHOR'S ORGANIZ ATION 03/14/2022 [facility] DATE CREATED AUTHOR AUTHOR'S ORGANIZ ATION 07/13/2022 [facility] DATE CREATED AUTHOR AUTHOR'S ORGANIZ ATION 07/29/2024 [facility] d[facility] Specialists EPIC REASON FOR VISIT [...] March 08, 2024 End: March 08, 2024 Labor Standards Director Relationship Specialty Start Date End Date Unallocated, [place] [address] PCP - General Family Medicine 08/12/23 Labor Standards Director Relationship Specialty Start Date End Date Unallocated, [place] [address] PCP - General Family Medicine 08/12/23 Labor Standards Director Relationship Specialty Start Date End Date Unallocated, [place] [address] PCP - General Family Medicine 08/12/23 Labor Standards Director Relationship Specialty Start Date End Date Unallocated, [place] [address] PCP - General Family Medicine 08/12/23 Labor Standards Director Relationship Specialty Start Date End Date Unallocated, [place] [address] PCP - General Family Medicine 08/12/23 Labor Standards Director Relationship Specialty Start Date End Date Unallocated, [place] [address] PCP - General Family Medicine 08/12/23 Labor Standards Director Relationship Specialty Start Date End Date Unallocated, Chente Heredia MD [facility] [place] [address] PCP - General Family Medicine 08/12/23 Labor Standards Director Relationship Specialty Start Date End Date Unallocated, Chente Heredia MD [facility] [place] [address] PCP - General Family Medicine 08/12/23 Labor Standards Director Relationship Specialty Start Date End Date Unallocated, Chente Heredia [facility] [place] [address] PCP - General Family Medicine 08/12/23 Labor Standards Director Relationship Specialty Start Date End Date Unallocated, [place] [address] PCP - General Family Medicine 08/12/23 Labor Standards Director Relationship Specialty Start Date End Date Unallocated, [place] [address] PCP - General Family Medicine 08/12/23 Labor Standards Director Relationship Specialty Start Date End Date Unallocated, Chente Heredia MD [address] [facility] [place] [address] PCP - [facility] 08/12/23 Labor Standards Director Relationship Specialty Start Date End Date Unallocated, Chente Heredia MD [address] [place] [address] PCP - [facility] 08/12/23 Labor Standards Director Relationship Specialty Start Date End Date Unallocated, Chente Heredia MD [facility] [address] [facility] [place] [address] PCP - [facility] 08/12/23 Labor Standards Director Relationship Specialty Start Date End Date Unallocated, Chente Heredia MD [facility] [address] [facility] [place] [address] PCP [facility] 08/12/23 Labor Standards Director Relationship Specialty Start Date End Date Unallocated, Chente Heredia MD [facility] [address] [facility] [place] [address] PCP - [facility] 08/12/23 Labor Standards Director Relationship Specialty Start Date End Date Unallocated, Chente Heredia MD [facility] [place] [address] [facility] 08/12/23 Goals (unrecognized section and content) Goals [...] BE BASED ON THE PRIMARY CLINICAL RECORDS. [facility]. provides no warranty or guarantee of the accuracy or completeness of information in this document.
[2024-08-01 17:06] LABS: Hematocrit 32.1 % (36.0-48.0); Hemoglobin 10.3 g/dL (12.0-16.0); Mean Corpuscular HGB Conc 32.1 g/dL (29.9-35.2); Mean Corpuscular Hemoglobin 27.3 pg (26.7-34.0); Mean Corpuscular Volume 85.1 fL (81.0-99.0); Platelet Count 311 10^3/uL (150-450); Red Blood Count 3.77 10^6/uL (4.20-5.40); Red Cell Distribution Width 22.8 % (11.0-15.0); White Blood Count 7.7 10^3/uL (4.0-11.0)
[2024-08-01 17:19] LABS: Amphetamine Screen Urine NEGATIVE (NEGATIVE); Barbiturates Screen Urine NEGATIVE (NEGATIVE); Benzodiazepines Screen Urine NEGATIVE (NEGATIVE); Buprenorphine Screen Urine NEGATIVE (NEGATIVE); Cannabinoid Screen Urine NEGATIVE (NEGATIVE); Cocaine Screen Urine NEGATIVE (NEGATIVE); Methadone Screen Urine NEGATIVE (NEGATIVE); Methamphetamines Screen Urine NEGATIVE (NEGATIVE); Opiate Screen Urine NEGATIVE (NEGATIVE); Oxycodone Screen Urine NEGATIVE (NEGATIVE); Phencyclidine Screen Urine NEGATIVE (NEGATIVE); Tricyclic Antidepressant Urine NEGATIVE (NEGATIVE)
[2024-08-01] MEDS: DINOPROSTONE 10 MG VAG INSERT.ER VAGINAL (17:28)
--- NOTE | 2024-08-01 20:14 | W.PC.ACHO ---
Registration Status: ADM IN Primary Language: Romanian Preferred Language: Romanian Report given to Claudio OQUENDO at 1915. Care relinquished at this time. Active Medications Generic Name Dose Route Start Last Admin Trade Name Efrain PRN Reason Stop Dose Admin Carboprost Tromethamine 250 mcg 08/01/24 16:24 Carboprost Tromethamine 250 Mcg/Ml 1 Ml Vial IM 08/03/24 16:24 Q15M PRN Bleeding Tranexamic Acid 1,000 mg/ 110 mls @ 440 mls/hr 08/01/24 16:24 Sodium Chloride IV 08/03/24 16:24 ONCE PRN Uterine Bleeding Sodium Chloride 1,000 mls @ 125 mls/hr 08/01/24 16:30 Sodium Chloride 0.9% 1,000 Ml IV .Q8H ALCON Oxytocin/Sodium Chloride 10 units in 500 mls @ 6 mls/hr 08/02/24 06:00 Pitocin 10 Unit/500 Ml-Ns IV TITR ALCON Protocol 2 MILLIUNIT/MIN Oxytocin/Sodium Chloride 20 units in 1,000 mls @ 125 mls/hr 08/01/24 16:24 Pitocin 20 Unit/1,000 Ml-Ns IV Q8H PRN POST DELIVERY Lidocaine 5 ml 08/01/24 16:24 Lidocaine Viscous 2% 15 Ml Solution TOPICAL 08/03/24 16:26 ONCE PRN Pain Lidocaine 1 ml 08/01/24 16:24 Lidocaine Hcl 1% 200 Mg/20 Ml Mdv INJ 08/03/24 16:26 ONCE PRN Pain Methylergonovine Maleate 0.2 mg 08/01/24 16:24 Methylergonovine Maleate 0.2 Mg/Ml Ampule IM 08/03/24 16:24 ONCE PRN Uterine Contractility/Contract Methylergonovine Maleate 0.2 mg 08/01/24 16:24 Methylergonovine Maleate 0.2 Mg Tablet PO 08/03/24 16:24 Q4H PRN Uterine Contractility/Contract Misoprostol 600 mcg 08/01/24 16:24 Misoprostol 100 Mcg Tablet PO 08/03/24 16:24 ONCE PRN Uterine Bleeding Misoprostol 800 mcg 08/01/24 16:24 Misoprostol 100 Mcg Tablet SL 08/03/24 16:24 ONCE PRN Uterine Bleeding Misoprostol 1,000 mcg 08/01/24 16:24 Misoprostol 100 Mcg Tablet PA 08/03/24 16:24 ONCE PRN Uterine Bleeding Nalbuphine HCl 10 mg 08/01/24 16:24 Nalbuphine Hcl 10 Mg/Ml Ampule IV Q3H PRN Pain Ondansetron HCl 4 mg 08/01/24 16:24 Ondansetron Pf 4 Mg/2 Ml Vial IV Q6H PRN Nausea And Vomiting Ondansetron HCl 4 mg 08/01/24 16:24 Ondansetron 4 Mg Rapdis Tablet SL Q6H PRN Nausea And Vomiting Oxytocin 10 unit 08/01/24 16:24 Oxytocin 10 Unit/Ml Vial IM 08/03/24 16:24 ONCE PRN Bleeding Diet Category Date Time Status Regular Consistency Diet Diet 08/01/24 16:25 Active Consults Category Date Time Status Consult to Anesthesiology Routine Cons 08/01/24 Ordered IV Insertion/Site Date of IV Line Insertion [ 08/01/24 Short PIV (<1.75 in) 20g right Wrist] IV Insertion Time [Short PIV ( 16:35 <1.75 in) 20g right Wrist] Neurology Patient orientation (short person,place,time,situation list)
[2024-08-02] VITALS (71 sets, daily range): BP systolic 102–161; BP diastolic 50–86; PULSE 66–166; TEMP 30.9–37.1
[2024-08-02] MEDS: OXYTOCIN/0.9 % SODIUM CHLORIDE 10 UNITS/500 ML PLAST..BAG 6 UNIT IV (06:25)
[2024-08-02] MEDS: 0.9 % SODIUM CHLORIDE 1,000 ML 125 ML IV ×3 (06:25→18:29)
[2024-08-02] MEDS: ONDANSETRON PF 4 MG/2 ML VIAL IV (07:54)
[2024-08-02] MEDS: 0.9 % SODIUM CHLORIDE 1,000 ML 1000 ML IV (10:34)
[2024-08-02] MEDS: ROPIVACAINE HCL/PF 400 MG/200 ML PREMIX 6 MG EPIDURAL (11:03)
--- NOTE | 2024-08-02 20:15 | W.PC.ACHO ---
Registration Status: ADM IN Primary Language: Bangladeshi Preferred Language: Bangladeshi 1914-report given to David Macario RN at this time. Active Medications Generic Name Dose Route Start Last Admin Trade Name Efrain PRN Reason Stop Dose Admin Carboprost Tromethamine 250 mcg 08/01/24 16:24 Carboprost Tromethamine 250 Mcg/Ml 1 Ml Vial IM 08/03/24 16:24 Q15M PRN Bleeding Diphenhydramine HCl 25 mg 08/02/24 07:46 Diphenhydramine Hcl 50 Mg/Ml Vial IV 08/03/24 07:47 Q6H PRN Itching Ephedrine Sulfate 5 mg 08/02/24 07:46 Ephedrine Sulfate 50 Mg/Ml Vial IV 08/03/24 07:47 Q5M PRN Blood Pressure - Low Tranexamic Acid 1,000 mg/ 110 mls @ 440 mls/hr 08/01/24 16:24 Sodium Chloride IV 08/03/24 16:24 ONCE PRN Uterine Bleeding Sodium Chloride 1,000 mls @ 125 mls/hr 08/01/24 16:30 08/02/24 18:29 Sodium Chloride 0.9% 1,000 Ml IV 125 mls/hr .Q8H ALCON Administration Oxytocin/Sodium Chloride 20 units in 1,000 mls @ 125 mls/hr 08/01/24 16:24 Pitocin 20 Unit/1,000 Ml-Ns IV Q8H PRN POST DELIVERY Oxytocin/Sodium Chloride 10 units in 500 mls @ 6 mls/hr 08/02/24 06:38 08/02/24 18:04 Pitocin 10 Unit/500 Ml-Ns IV 14 milliunit/min TITR PRN 42 mls/hr doctors order Infusion Protocol 2 MILLIUNIT/MIN Ropivacaine/Sodium Chloride 400 mg in 200 mls @ 6 mls/hr 08/02/24 08:00 08/02/24 11:03 Naropin 0.2% 400 Mg/200 Ml Bag EPIDURAL 6 mls/hr Q24H ALCON Administration Lidocaine 5 ml 08/01/24 16:24 Lidocaine Viscous 2% 15 Ml Solution TOPICAL 08/03/24 16:26 ONCE PRN Pain Lidocaine 1 ml 08/01/24 16:24 Lidocaine Hcl 1% 200 Mg/20 Ml Mdv INJ 08/03/24 16:26 ONCE PRN Pain Lidocaine 5 ml 08/02/24 07:46 Lidocaine Hcl 2% Pf 100 Mg/5 Ml Vial INJ 08/03/24 07:47 Q1H PRN Epidural Methylergonovine Maleate 0.2 mg 08/01/24 16:24 Methylergonovine Maleate 0.2 Mg/Ml Ampule IM 08/03/24 16:24 ONCE PRN Uterine Contractility/Contract Methylergonovine Maleate 0.2 mg 08/01/24 16:24 Methylergonovine Maleate 0.2 Mg Tablet PO 08/03/24 16:24 Q4H PRN Uterine Contractility/Contract Misoprostol 600 mcg 08/01/24 16:24 Misoprostol 100 Mcg Tablet PO 08/03/24 16:24 ONCE PRN Uterine Bleeding Misoprostol 800 mcg 08/01/24 16:24 Misoprostol 100 Mcg Tablet SL 08/03/24 16:24 ONCE PRN Uterine Bleeding Misoprostol 1,000 mcg 08/01/24 16:24 Misoprostol 100 Mcg Tablet WV 08/03/24 16:24 ONCE PRN Uterine Bleeding Nalbuphine HCl 10 mg 08/01/24 16:24 Nalbuphine Hcl 10 Mg/Ml Ampule IV Q3H PRN Pain Naloxone HCl 0.4 mg 08/02/24 07:46 Naloxone Hcl 0.4 Mg/Ml Vial IV 08/03/24 07:47 ONCE PRN Respiratory Ondansetron HCl 4 mg 08/01/24 16:24 08/02/24 07:54 Ondansetron Pf 4 Mg/2 Ml Vial IV 4 mg Q6H PRN Administration Nausea And Vomiting Ondansetron HCl 4 mg 08/01/24 16:24 Ondansetron 4 Mg Rapdis Tablet SL Q6H PRN Nausea And Vomiting Oxytocin 10 unit 08/01/24 16:24 Oxytocin 10 Unit/Ml Vial IM 08/03/24 16:24 ONCE PRN Bleeding Respiratory Oxygen Delivery Method Room Air Cardiology Heart Sounds Strong,Regular
[2024-08-02] MEDS: LIDOCAINE HCL 1% 200 MG/20 ML MDV INJ (22:00)
[2024-08-02] MEDS: OXYTOCIN/0.9 % SODIUM CHLORIDE 20 UNITS/1,000 ML PLAST..BAG 125 UNIT IV (22:05)
--- NOTE | 2024-08-02 22:26 | PM.OBPRCVD ---
Procedure Intrapartal events: None Induction method: per misoprostol protocol Delivery augmentation: rupture of membranes and pitocin Delivery monitor: external FHT and external uterine Route of delivery: Episiotomy Description: midline L&D Laceration Description: perineal - 2nd degree Delivery repair: Vicryl Estimated blood loss (mL): 250 Anesthesia type: Epidural Disposition: floor Infant Delivery date: 08/02/24 Gender: male presentation: vertex Placental delivery description: Spontaneous cord description: 3 Vessels
[2024-08-02] MEDS: GLYCERIN/WITCH HAZEL PADS 1 PAD TOPICAL (23:46)
[2024-08-02] MEDS: BENZOCAINE/MENTHOL 85 GRAM SPRAY BOTTLE 1 APPLIC TOPICAL (23:46)
[2024-08-02] MEDS: IBUPROFEN 600 MG TABLET PO (23:46)
[2024-08-03] VITALS (10 sets, daily range): BP systolic 121–135; BP diastolic 62–76; PULSE 71–80; TEMP 36.7–37.1
[2024-08-03 06:28] LABS: Basophils Percent Auto 0.2 % (0.2-2.0); Hematocrit 28.1 % (36.0-48.0); Immature Granulocytes Abs Auto 0.07 10^3/uL (0.00-0.03); Immature Granulocytes Pct Auto 0.4 % (0.0-0.5); Lymphocytes Absolute Auto 1.5 10^3/uL (1.2-3.8); Lymphocytes Percent Auto 9.1 % (20.5-60.0); Mean Corpuscular Hemoglobin 27.4 pg (26.7-34.0); Mean Corpuscular Volume 85.7 fL (81.0-99.0); Mean Platelet Volume 9.8 fL (9.5-13.5); Monocytes Absolute Auto 0.9 10^3/uL (0.3-0.8); Monocytes Percent Auto 5.7 % (1.7-12.0); Neutrophils Percent Auto 84.6 % (43.0-75.0); Platelet Count 269 10^3/uL (150-450); Red Blood Count 3.28 10^6/uL (4.20-5.40); Red Cell Distribution Width 22.5 % (11.0-15.0); White Blood Count 16.6 10^3/uL (4.0-11.0)
[2024-08-03] MEDS: IBUPROFEN 600 MG TABLET PO ×2 (08:06→15:21)
[2024-08-03] MEDS: DOCUSATE SODIUM 100 MG CAPSULE PO (08:06)
--- NOTE | 2024-08-03 10:10 | PM.OBPN ---
OB - PN: Subj Subjective Patient comments: no complaints and pain well controlled Exam Constitutional Vital Signs, click to edit/add: Last Vital Signs Temp 98.1 F 08/03/24 07:50 Pulse 76 08/03/24 07:36 Resp 16 08/03/24 07:50 BP 121/76 08/03/24 07:36 O2 Del Method Room Air 08/03/24 03:32 Common normals: no apparent distress GI Common normals: soft to palpation and non-tender Inspection: normal to inspection Other: Fundus - firm below umbilicus Other: Perineum - minimal bleeding Extremity Common normals: normal to inspection Neuro Common normals: oriented x3 Psych Common normals: mental status grossly normal Results Labs Labs: Short CBC 08/03/24 Range/Units 06:21 WBC 16.6 H (4.0-11.0) 10^3/uL Hgb 9.0 L (12.0-16.0) g/dL Hct 28.1 L (36.0-48.0) % Plt Count 269 (150-450) 10^3/uL OB - PN: A/P Assessment and Plan (1) Term : Plan - Vaginal Delivery day: 1 Plan: routine care Time Spent with Patient Time: Total time spent is greater than 50% in coordination of care (as documented) at patient's floor/unit and/or counseling patient: Total time spent with greater than 50% in coordination of care (as documented) at patient's floor/unit and/or counseling patient: less than 15 minutes
--- NOTE | 2024-08-03 12:16 | PC.NURSE ---
assisted with diapering and changing baby into clothes, offers baby breast
[2024-08-03] MEDS: ACETAMINOPHEN 325 MG TABLET 650 MG PO ×2 (12:50→20:31)
[2024-08-04 01:00] VITALS: TEMP 36.9
[2024-08-04] MEDS: IBUPROFEN 600 MG TABLET PO ×2 (01:03→08:12)
[2024-08-04 01:05] VITALS: BP 111/68; PULSE 80
--- NOTE | 2024-08-04 04:40 | PM.OBPN ---
OB - PN: Subj Subjective Patient comments: no complaints and pain well controlled status: doing well Exam Constitutional Vital Signs, click to edit/add: Last Vital Signs Temp 98.4 F 08/04/24 01:00 Pulse 80 08/04/24 01:05 Resp 14 08/04/24 01:00 BP 111/68 08/04/24 01:05 O2 Del Method Room Air 08/04/24 01:00 Documenting provider has reviewed patient's vital signs: yes Common normals: no apparent distress Respiratory Common normals: normal respiratory effort and clear to auscultation bilaterally Cardio Common normals: regular rate and regular rhythm GI Common normals: Normal to inspection, nondistended, normoactive bowel sounds present Extremity Common normals: no clubbing, cyanosis or edema and no calf tenderness Results Labs Labs: Short CBC 08/03/24 Range/Units 06:21 WBC 16.6 H (4.0-11.0) 10^3/uL Hgb 9.0 L (12.0-16.0) g/dL Hct 28.1 L (36.0-48.0) % Plt Count 269 (150-450) 10^3/uL OB - PN: A/P Assessment and Plan (1) Term : Plan - Vaginal Delivery day: 1 Plan: routine care, discharge home and follow up 6 weeks Time Spent with Patient Time: Total time spent is greater than 50% in coordination of care (as documented) at patient's floor/unit and/or counseling patient: Total time spent with greater than 50% in coordination of care (as documented) at patient's floor/unit and/or counseling patient: less than 15 minutes
[2024-08-04 08:06] VITALS: BP 117/72; PULSE 74
[2024-08-04 08:10] VITALS: TEMP 36.8
[2024-08-04] MEDS: RHO(D) IMMUNE GLOBULIN 1,500 UNIT SYRINGE 1500 UNIT IV (08:11)
[2024-08-04] MEDS: ACETAMINOPHEN 325 MG TABLET 650 MG PO (08:12)
[2024-08-04] MEDS: DOCUSATE SODIUM 100 MG CAPSULE PO (08:12)
== END 2024-08-04 09:20 | disposition home or self-care (01) | DRG 560 ==
PROVIDERS: Admitting Provider Obstetrics & Gynecology; Visit Provider Obstetrics & Gynecology
DX: O26.893 Other specified pregnancy related conditions, third trimester (principal); Z67.11 Type A blood, Rh negative; O70.1 Second degree perineal laceration during delivery; Z3A.39 39 weeks gestation of pregnancy; Z37.0 Single live birth; O99.334 Smoking (tobacco) complicating childbirth; F17.290 Nicotine dependence, other tobacco product, uncomplicated
CPT/HCPCS: 36415; 59050; 59410; 80307; 85025; 85027; 85461; 86850; 86900; 86901; J2405; J2791; J2795

== ENCOUNTER 2025-04-26 18:57 | Outpatient (REF) | payer MEDICAID, SELFPAY ==
--- OUTSIDE RECORDS SUMMARY | 2024-01-07 05:15 | XMS_ITS ---
Author Organization [facility] es Address [address] [place] [address] Care Team Providers Care Social Secretary Name Role Phone Dr. Tru Duncan Primary Care Provider [phone] Margaret Alatorre Unavailable [phone] Jake Bernardo Unavailable [phone] REASON FOR VISIT FILLING Encounters Encounter Location Date Provider Diagnosis [facility] [address] [place] [address] 01/07/2024 Jake Bernardo Plan Of Treatment Next Appt Details Provider Name:Tru Duncan, 0 08/21/2025 11:30:00 AM, [address] [place], [address], Provider Name:Tru Duncan, 0 08/28/2025 11:30:00 AM, [address] [place], [address], Provider Name:Marcie Rizvi , 10/31/2025 01:30:00 PM, [address], [place], [address], Progress Notes * CORY WESTOB: 003 (24 yo F)Acc No.[id number]:01/07/2024 Patient:?AKILAH WEST :?GUERRERO RodneyOB:2000???Age:23 Y???Sex: FemaleDate:01/07/2024hone:[phone]:[address], [place], [id number]:Dr. Tru Duncan Subjective: * Chief Complaints: * F ILLING * Electronic signature of Jake Bernardo on 04/26/2025 at 10:52 AM ESTSign off status: Pending * Provider: Fannie Henriquez DDS Date: 0 01/07/2024 Generated for Printing/Faxing/eTransmitting on:?04/26/2025 10:52 AM EST
--- OUTSIDE RECORDS SUMMARY | 2024-01-14 05:30 | XMS_ITS ---
Author Organization [facility] es Address [address] [place] [address] Care Team Providers Care Down Filler Name Role Phone Dr. Tru Duncan Primary Care Provider [phone] Margaret Alatorre Unavailable [phone] Jake Bernardo Unavailable [phone] REASON FOR VISIT FILLING Encounters Encounter Location Date Provider Diagnosis [facility] [address] [place] [address] 01/14/2024 Jake Bernardo Plan Of Treatment Next Appt Details Provider Name:Tru Duncan, 0 08/21/2025 11:30:00 AM, [address] [place], [address], Provider Name:Tru Duncan, 0 08/28/2025 11:30:00 AM, [address] [place], [address], Provider Name:Marcie Rizvi , 10/31/2025 01:30:00 PM, [address], [place], [address], Progress Notes * CORY WESTOB: 003 (24 yo F)Acc No.[id number]:01/14/2024 Patient:?AKILAH WEST :?Jake Henriquez DDSDOB:2000???Age:23 Y???Sex: FemaleDate:01/14/2024hone:[phone]:[address], [place], [id number]:Dr. Tru Duncan Subjective: * Chief Complaints: * F ILLING * Electronic signature of Jake Bernardo on 04/26/2025 at 10:52 AM ESTSign off status: Pending * Provider: Fannie Henriquez DDS Date: 0 01/14/2024 Generated for Printing/Faxing/eTransmitting on:?04/26/2025 10:52 AM EST
--- OUTSIDE RECORDS SUMMARY | 2025-03-27 11:25 | XMS_ITS ---
Author Organization [facility] Address [address] [place] [address] Care Team Providers Care Senior Java Developer Name Role Phone Dr. Tru Duncan Primary Care Provider Margaret Alatorre Unavailable [phone] Maria Victoria Rodriguez Unavailable [phone] REASON FOR VISIT SENT TEXT TO R/S Encounters Encounter Location Date Provider Diagnosis [facility] [address] [place] [address] 03/27/2025 Maria Victoria Rodriguez Plan Of Treatment Next Appt Details Provider Name:Tru Duncan, 0 08/21/2025 11:30:00 AM, [address] [place], [address], Provider Name:Tru Duncan, 0 08/28/2025 11:30:00 AM, [address] [place], [address], Provider Name:Marcie Dmitri , 10/31/2025 01:30:00 PM, [address] [place], [address], Progress Notes * CORY WESTOB: 003 (24 yo F)Acc No.[id number]:03/27/2025 Patient:?AKILAH WEST :?Maria Victoria RodriguezDOB:2000???Age:24 Y???Sex: FemaleDate:03/27/2025Phone:[phone]:[address] , [place], [id number]:Dr. Tru Duncan Subjective: * Chief Complaints: * S ENT TEXT TO R/S Billing Information: * Procedure Codes: * Electronic signature of Maria Victoria Rodriguez DMD on 04/26/2025 at 10:51 AM ESTSign off status: Pending * Provider: James Rodriguez Date: 1 Generated for Printing/Faxing/eTransmitting on:?04/26/2025 10:51 AM EST
--- OUTSIDE RECORDS SUMMARY | 2025-04-26 11:00 | XMS_ITS | Encounter Summary ---
Author Organization [facility] Address [address] [place] [address] Care Team Providers Care Brass Molder Name Role Phone Unallocated, Noms Provider Primary Care Provi fatuma Reason for Visit * ReasonCommentsGynecologic Exam Encounter Details DateTypeDepartmentCare Team (Latest Contact Info)Otuzlrxryfy06/13/2025 11:00 AM ESTProcedure Visit [facility] [address] [place] [address] Marycarmen Thibodeaux PA [address] [place] [address] Well woman exam with routine gynecological exam Social History Tobacco UseTypesPacks/DayYears UsedDateSmoking Tobacco: Never AssessedPHQ-2 AnswerDate RecordedPatient Health Questionnaire-2 Nimog109 CommentsUnknownSex and Gender InformationValueDate RecordedSex Assigned at Not on fileLegal PipBrdxzw81/15/2023 6:49 PM EDTGender IdentityNot on fileSexual OrientationNot on filedocumented as of this encounter Last Filed Vital Signs Vital SignReadingTime TakenCommentsBlood Uhefxwya288/7004/26/2025 11:25 AM EST Pulse--Temperature--Respiratory Rate--Oxygen Saturation--Inhaled Oxygen Concentration--Vrdodl59.1 kg (159 lb)04/26/2025 11:25 AM FPCSxwsmx900.6 cm (5' 4 )04/26/2025 11:25 AM ESTBody Mass Index27.29106/26/2024 11:25 AM ESTdocumented in this encounter Progress Notes * MEDHAT Conde - 04/26/2025 11:00 AM EST Reason for Appointment: Patient ID: Maribel Velez is a 24 y.o. female who presents for Gynecologic Exam Patient presents today for Annual Exam. MEDICATIONS No current outpatient medications ALLERGIES Allergies Allergen Reactions Red Dye Anaphylaxis Other Reaction(s): Swelling of Lip/Tongue/Throat Red Dye #40 (Allura Red) Anaphylaxis, Hives and Swelling Other Reaction(s): Unknown Other Reaction(s): Swelling of Lip/Tongue/Throat PROBLEMS Active Ambulatory Problems Diagnosis Date Noted No Active Ambulatory Problems Resolved Ambulatory Problems Diagnosis Date Noted 24 weeks gestation of ([facility]) 04/17/2024 No Additional Past Medical History HISTORY PAST [...] appearance. She is well-developed. Genitourinary: Vulva normal. Right Adnexa: not tender and no mass present. Left Adnexa: not tender and no mass present. No cervical discharge. Breasts: Breasts are soft. Right: Normal. Left: Normal. HENT: Head: Normocephalic. Nose: Nose normal. Mouth/Throat: Mouth: Mucous membranes are moist. Cardiovascular: Rate and Rhythm: Normal rate and regular rhythm. Pulmonary: Effort: Pulmonary effort is normal. Breath sounds: Normal breath sounds. Abdominal: General: Bowel sounds are normal. There is no distension. Palpations: Abdomen is soft. Tenderness: There is no abdominal tenderness. There is no guarding or rebound. Musculoskeletal: General: No swelling. Normal range of motion. Cervical back: Normal range of motion. Right lower leg: No edema. Left lower leg: No edema. Neurological: General: No focal deficit present. Mental Status: She is alert and oriented to person, place, and time. Skin: General: Skin is warm and dry. Psychiatric: Mood and Affect: Mood normal. Behavior: Behavior normal. Vitals and nursing note reviewed. Exam conducted with a city superintendent of schools present. Vitals: Estimated body mass index is 21.8 kg/m?? as calculated from the following: Height as of 04/04/20: 5' 4.75 . Weight as of 04/04/20: 130 lb. BP: No LMP recorded. Assessment/Plan ICD-10-CM 1. Well woman exam with routine gynecological exam Z01.419 Pap Smear Assessment/Plan Annual Exam: Patient presents today for an annual exam. Patient states she is doing well and has no complaints. Pap was obtained without difficulty. No orders of the defined types were placed in this encounter. Follow Up: Patient is to return in one year for annual unless needed otherwise. Documented by Alexus Brown MA on behalf of: MEDHAT Conde documented in this encounter Plan of Treatment NameTypePriorityAssociated DiagnosesOrder SchedulePap SmearPathology and CytologyRoutine Well woman exam with routine gynecological exam Ordered: 04/26/2025documented as of this encounter Visit Diagnoses Diagnosis Well woman exam with routine gynecological exam Routine gynecological examination documented in this encounter Care Teams Team MemberRelationshipSpecialtyStart DateEnd Date Unallocated, Noms Provider, [address] [place] [address] PCP - GeneralFamily Medicine08/12/23documented as of this encounter
--- OUTSIDE RECORDS SUMMARY | 2025-04-26 19:02 | XMS_ITS | Encounter Summary ---
Author Organization [facility] Address [address] [place] [address] Care Team Providers Care Manager Utilization Management Name Role Phone Unallocated, Noms Provider Primary Care Provi fatuma Encounter Details DateTypeDepartmentCare Team (Latest Contact Info)Ffbahiazplw98/19/2024Clinisync Result Encounter [facility] External Department Unsolicited Keith Mccracken, DO [address] [place] [address] Social History Tobacco UseTypesPacks/DayYears UsedDateSmoking Tobacco: Never AssessedPHQ-2 AnswerDate RecordedPatient Health Questionnaire-2 Vvmjo140 CommentsUnknownSex and Gender InformationValueDate RecordedSex Assigned at Not on fileLegal ByoTcaydm14/15/2023 6:49 PM EDTGender IdentityNot on fileSexual OrientationNot on filedocumented as of this encounter Functional Status * Over the past 2 weeks, how often have you been bothered by any of the following problems?QuestionAnswerDate of AssessmentAuthorLittle interest or pleasure in doing thingsNot at all09/07/2024 2:40 PM Marycarmen Coe LPN Feeling down, depressed, or hopelessNot at all09/07/2024 2:40 PM Marycarmen Coe LPNPatient Health Questionnaire-2 Fhnyy060 2:40 PM Marycarmen Coe LPN documented as of this encounter Plan of Treatment Not on file documented as of this encounter Procedures Procedure NamePriorityDate/TimeAssociated DiagnosisCommentsUS OB TRANSVAGINAL 12/31/2023 12:09 PM EDT documented in this encounter Results * US OB TRANSVAGINAL (12/31/2023 12:09 PM EDT)Anatomical RegionLaterality ModalityOtherSpecimen (Source)Anatomical Location / LateralityCollection Method / VolumeCollection TimeReceived Time12/31/2023 12:09 PM EDT Narrative 12/31/2023 12:12 PM EDT [facility] ?[address] ? [place] [address] ? Ultrasound Report ? Signed ? Patient: JENNAMARIBEL Perkins ?MR#: [id number] ?? : 2000 ?Acct:[id number] ?? Age/Sex: 23 / F ?ADM Date: 12/31/23 ?? Loc: [facility] ? Attending Dr: Keith Mccracken D.O. ? Ordering Physician: Keith Mccracken D.O. ?? Date of Service: 12/31/23 ?? Procedure(s): US OB transvaginal ?? Accession Number(s): [id number] ? cc: Keith Mccracken D.O.; Physician,Non-Staff M.DSri ? [facility] ? [address] [facility] ? [place] [address] ? Patient Name: ?? MARIBEL WEST ? MRN: [facility]:[id number] ? date: 2000 ?Sex: F ?? Assigned Patient Location: [facility] ?? Current Patient Location: [facility] ?? Accession/Order Number: [id number] ?? Exam Date: 12/31/2023 ??10:09 ?Report Date: 12/31/2023 ??12:09 ? At the request of: ?? KEITH ??KAYKAY ? Procedure: ??US OB transvaginal ? EXAMINATION: US OB transvaginal ? HISTORY: MISSED MENSES ? COMPARISON: No relevant comparison available. ? FINDINGS: ? GESTATIONAL SAC: Present and normal appearing. ?? YOLK SAC: Present and normal appearing. ?? POLE: Present and normal appearing. ?? CARDIAC: Present. ? UTERUS: Normal size and appearance. ?? OVARIES: Right: Normal. Left: Corpus lutein cyst. ?? CERVIX: 4.7 cm in length and closed. ?? CUL-DE-SAC: Normal. ?? OTHER: None. ? AGE BY LMP: 9 weeks 4 days ?? WYATT BY LMP: 07/31/2024 ?? AGE BY US CRL: 9 weeks 3 days ?? WYATT BY US CRL: 08/01/2024 ? US/US OB transvaginal ?? IMPRESSION: ? 1. Single live intrauterine . ? Electronically authenticated by: SUGAR ??MIGUE ?? Date: 12/31/2023 ??12:09 ? Dictated By: ?Sugar Levin M.D. ? Signed By: ?12/31/23 1212 ? DD/ 1209 ? TD/TT: ? Salvage Inspector: Procedure Note Radiology, Radiologist, MD - 12/31/2023 [place] [address] Ultrasound Report Signed Patient: MARIBEL WEST MMR#: [id number] : 2000Acct:[id number] Age/Sex: 23 FADM Date: 12/31/23 Loc: [facility] Attending Dr: Keith Mccracken D.O. Ordering Physician: Keith Mccracken D.O. Date of Service: 12/31/23 Procedure(s): US OB transvaginal Accession Number(s): [id number] cc: Keith Mccracken D.O.; Physician,Non-Staff Jeremy The [place] [id number] Patient Name: MARIBEL WEST MRN: [facility]:[id number] date: 2000 Sex: F Assigned Patient Location: [facility] Current Patient Location: [facility] Accession/Order Number: [id number] Exam Date: 12/31/2023 10:09 Report Date: 12/31/2023 12:09 At the request of: KEITH MCCRACKEN Procedure: US OB transvaginal EXAMINATION: US OB transvaginal HISTORY: MISSED MENSES COMPARISON: No relevant comparison available. FINDINGS: GESTATIONAL SAC: Present and normal appearing. YOLK SAC: Present and normal appearing. POLE: Present and normal appearing. CARDIAC: Present. UTERUS: Normal size and appearance. OVARIES: Right: Normal. Left: Corpus lutein cyst. CERVIX: 4.7 cm in length and closed. CUL-DE-SAC: Normal. OTHER: None. AGE BY LMP: 9 weeks 4 days WYATT BY LMP: 07/31/2024 AGE BY US CRL: 9 weeks 3 days WYATT BY US CRL: 08/01/2024 US/US OB transvaginal IMPRESSION: 1. Single live intrauterine . Electronically authenticated by: SUGAR LEVIN Date: 12/31/2023 12:09 Dictated By: Sugar Levin M.D. Signed By:12/31/23 1212 DD/ 1209 TD/TT: Salvage Inspector: Authorizing ProviderResult TypeResult StatusCorey Kaykay DOCLINISYNC IMAGINGFinal Result documented in this encounter Visit Diagnoses Not on filedocumented in this encounter Care Teams Team MemberRelationshipSpecialtyStart DateEnd Date Unallocated, Noms Provider, [address] [place] [address] PCP - GeneralFamily Medicine08/12/23documented as of this encounter
--- OUTSIDE RECORDS SUMMARY | 2025-04-26 19:02 | XMS_ITS | Clinical Summary ---
Author Organization [facility] Address [address] [facility] [email or web address] [address] Care Team Providers Care Clerical Warehouseman Name Role Phone Unallocated, Noms Provider Primary Care Provi fatuma Allergies Active AllergyReactionsCriticalityNoted DateCommentsRed DyeAnaphylaxisHigh 03/08/2024 Other Reaction(s): Swelling of Lip/Tongue/Throat Red Dye #40 (Allura Red)Anaphylaxis,Hives,SsbzjlvtXdfb50/13/2023 Other Reaction(s): Unknown Other Reaction(s): Swelling of Lip/Tongue/Throat Medications No known medications Resolved Problems ProblemNoted DateDiagnosed DateResolved Date24 weeks gestation of ([facility])/ Encounters DateTypeDepartmentCare GmqaPusesdkinhj52/13/2025 11:00 AM ESTProcedure Visit SHARI ARAYA [address] [place] [address] [place] [address] Marycarmen Thibodeaux PA Well woman exam with routine gynecological exam04/26/2025amboo flowsheet NOMDain ARAYA [address] [place] [address] Marycarmen Thibodeaux PA from Last 3 Months Social History Tobacco UseTypesPacks/DayYears UsedDateSmoking Tobacco: Never AssessedPHQ-2 AnswerDate RecordedPatient Health Questionnaire-2 Rkymy609 CommentsUnknownSex and Gender InformationValueDate RecordedSex Assigned at Not on fileLegal MruPelkxj03/15/2023 6:49 PM EDTGender IdentityNot on fileSexual OrientationNot on file Last Filed Vital Signs Vital SignReadingTime TakenCommentsBlood Viqfuxsq475/7004/26/2025 11:25 AM EST Yojkl9703/ 2:33 PM TNNTpjfegrscwe83.7 ??C (98 ??F)08/12/2023 2:33 PM EST Respiratory Rate--Oxygen Cbrhmjihpn30%08/12/2023 2:33 PM ESTInhaled Oxygen Concentration--Sobnus33.1 kg (159 lb)04/26/2025 11:25 AM UAFXxvkoz637.6 cm (5' 4 )04/26/2025 11:25 AM ESTBody Mass Index27.29106/26/2024 11:25 AM EST Plan of Treatment Health MaintenanceDue DateLast DoneCommentsCOVID-19 Vaccine ( season) 2025Influenza Vaccine (#1)2025Pneumococcal Vaccine: Pediatrics (0 to 5 Years) and At-Risk Patients (6 to 64 Years)Aged OutNo longer eligible based on patient's age to complete this topic Insurance Care Teams Team MemberRelationshipSpecialtyStart DateEnd Date Unallocated, Noms Yan, [address] [place], [place] [id number] PCP - GeneralFamily Medicine08/12/23
--- OUTSIDE RECORDS SUMMARY | 2025-04-26 19:02 | XMS_ITS | Encounter Summary ---
Author Organization [facility] Address [address] [place] [address] Care Team Providers Care Microsoft Dynamics Ax Consultant Name Role Phone Unallocated, Noms Provider Primary Care Provi fatuma Encounter Details DateTypeDepartmentCare Team (Latest Contact Info)Uradvojkwtu30/03/2024Clinisync Result Encounter [facility] External Department Unsolicited Marycarmen Rowan, MEDHAT [address] [place] [address] [place] [address] Social History Tobacco UseTypesPacks/DayYears UsedDateSmoking Tobacco: Never AssessedPHQ-2 AnswerDate RecordedPatient Health Questionnaire-2 Kyvpi860 CommentsYesSex and Gender InformationValueDate RecordedSex Assigned at BirthNot on fileLegal UmzBdlcky14/15/2023 6:49 PM EDTGender IdentityNot on fileSexual OrientationNot on filedocumented as of this encounter Functional Status * Over the past 2 weeks, how often have you been bothered by any of the following problems?QuestionAnswerDate of AssessmentAuthorLittle interest or pleasure in doing thingsNot at all09/07/2024 2:40 PM Marycarmen Coe LPN Feeling down, depressed, or hopelessNot at all09/07/2024 2:40 PM Marycarmen Coe LPNPatient Health Questionnaire-2 Ncgum559 2:40 PM Marycarmen Coe LPN documented as of this encounter Plan of Treatment Not on file documented as of this encounter Procedures Procedure NamePriorityDate/TimeAssociated DiagnosisCommentsUS OB ANATOMY 03/16/2024 12:13 PM EDT documented in this encounter Results * US OB ANATOMY (03/16/2024 12:13 PM EDT)Anatomical RegionLateralityModality OtherSpecimen (Source)Anatomical Location / LateralityCollection Method / VolumeCollection TimeReceived Time03/16/2024 12:13 PM EDT Narrative 03/16/2024 12:16 PM EDT [facility] ?[address] ? [place], [facility] ? Ultrasound Report ? Signed ? Patient: MARIBEL WEST ?MR#: [id number] ?? : 2000 ?Acct:[id number] ?? Age/Sex: 23 / F ?ADM Date: 03/16/24 ?? Loc: [facility] ? Attending Dr: Marycarmen Rowan ? Ordering Physician: Marycarmen Rowan ?? Date of Service: 03/16/24 ?? Procedure(s): US OB anatomy ?? Accession Number(s): [id number] ? cc: Marycarmen Rowan; Physician,Non-Staff M.D. ? [facility] ? [address] [facility] ? [place] [address] ? Patient Name: ?? MARIBEL WEST ? MRN: [facility]:[id number] ? date: 2000 ?Sex: F ?? Assigned Patient Location: [facility] ?? Current Patient Location: [facility] ?? Accession/Order Number: [id number] ?? Exam Date: 03/16/2024 ??10:43 ?Report Date: 03/16/2024 ??12:13 ? At the request of: ?? MARYCARMEN ??HARPAL ? Procedure: ??US OB anatomy ? EXAMINATION: US OB anatomy, US OB cervical length ? HISTORY: ANATOMY ? COMPARISON: No relevant comparison available. ? TECHNIQUE: Transabdominal sonographic examination was performed for ?? obstetrical ?? and evaluation. ? FINDINGS: ? Number: 1 ?? Heart Rate: 153 bpm H.B. /min ?? Amniotic Fluid Volume: Subjectively normal ?? position: Cephalic presentation, longitudinal lie ?? Placental Location: Posterior, grade 1. The placental edge is 4.8 cm from the ?? internal cervical os ?? Cervix Length: 4.52 cm , closed ? Normal anatomy: Lateral ventricles, cerebellum, posterior fossa, nose, lips, ?? orbits, four-chamber heart, diaphragm, stomach, kidneys, abdominal cord ?? insertion, bladder, umbilical arteries, three-vessel cord, spine, extremities ? Nonvisualization: RVOT, LVOT ? BIOMETRY: ?? BPD: 4.77 cm; 143 Day; 61.80 % ?? HC: 18.19 cm; 144 Day; 62.90 % ?? AC: 15.27 cm; 143 Day; 55.60 % ?? FL: 3.35 cm; 143 Day; 55.10 % ?? EFW:369.01 g; 65.70 % ?? FL/AC: 21.94 ?? FL/BPD: 70.23 ?? HC/AC: 1.19 ? GESTATIONAL AGE: ?? Age by EDC: 20 weeks 1 day ?? WYATT by EDC: 2024 ? Age by current US: 20 weeks 3 days ?? WYATT by current US: 2024-07-31 ? US/US OB anatomy ?? IMPRESSION: ? Nonvisualization of the ventricular outflow tracts ? Otherwise normal anatomy scan ? Closed cervix measuring 4.5 cm in length ? *Reference: [employer] Practice Guideline for the performance of Obstetric ?? Ultrasound ?? Examinations, March 14, 2007. ? Electronically authenticated by: AYM ??AVA ?? Date: 03/16/2024 ??12:13 ? Dictated By: ?Amy Escalante M.D. ? Signed By: ?03/16/24 1216 ? DD/ 1213 ? TD/TT: ? Counter Cutter: Procedure Note Radiology, Radiologist, - 03/16/2024 The [place] [id number] Ultrasound Report Signed Patient: MARIBEL WEST MMR#: [id number] : 2000Acct:[id number] Age/Sex: 23 FADM Date: 03/16/24 Loc: [facility] Attending Dr: Marycarmen Rowan Ordering Physician: Marycarmen Rowan Date of Service: 03/16/24 Procedure(s): US OB anatomy Accession Number(s): [id number] cc: Marycarmen Rowan; Physician,Non-Staff M.Kelsi The [address] [address] Patient Name: MARIBEL WEST MRN: [facility]:[id number] date: 2000 Sex: F Assigned Patient Location: [facility] Current Patient Location: [facility] Accession/Order Number: [id number] Exam Date: 03/16/2024 10:43 Report Date: 03/16/2024 12:13 At the request of: MARYCARMEN ROWAN Procedure: US OB anatomy EXAMINATION: US OB anatomy, US OB cervical length HISTORY: ANATOMY COMPARISON: No relevant comparison available. TECHNIQUE: Transabdominal sonographic examination was performed for obstetrical and evaluation. FINDINGS: Number: 1 Heart Rate: 153 bpm H.B. /min Amniotic Fluid Volume: Subjectively normal position: Cephalic presentation, longitudinal lie Placental Location: Posterior, grade 1. The placental edge is 4.8 cm fromthe internal cervical os Cervix Length: 4.52 cm , closed Normal anatomy: Lateral ventricles, cerebellum, posterior fossa, nose,lips, orbits, four-chamber heart, diaphragm, stomach, kidneys, abdominal cord insertion, bladder, umbilical arteries, three-vessel cord, spine,extremities Nonvisualization: RVOT, LVOT BIOMETRY: BPD: 4.77 cm; 143 Day; 61.80 % HC: 18.19 cm; 144 Day; 62.90 % AC: 15.27 cm; 143 Day; 55.60 % FL: 3.35 cm; 143 Day; 55.10 % EFW:369.01 g; 65.70 % FL/AC: 21.94 FL/BPD: 70.23 HC/AC: 1.19 GESTATIONAL AGE: Age by EDC: 20 weeks 1 day WYATT by EDC: 2024 Age by current US: 20 weeks 3 days WYATT by current US: 2024-07-31 US/US OB anatomy IMPRESSION: Nonvisualization of the ventricular outflow tracts Otherwise normal anatomy scan Closed cervix measuring 4.5 cm in length *Reference: [employer] Practice Guideline for the performance of Obstetric Ultrasound Examinations, March 14, 2007. Electronically authenticated by: AMY ESCALANTE Date: 03/16/2024 12:13 Dictated By: Amy Escalante M.D. Signed By:03/16/24 1216 DD/ 1213 TD/TT: Counter Cutter: Authorizing ProviderResult TypeResult StatusAmy Harpal PACLINISYNC IMAGINGFinal Result documented in this encounter Visit Diagnoses Not on filedocumented in this encounter Care Teams Team MemberRelationshipSpecialtyStart DateEnd Date Unallocated, Noms Provider, [address] [place] [address] PCP - GeneralFamily Medicine08/12/23documented as of this encounter
--- OUTSIDE RECORDS SUMMARY | 2025-04-26 19:02 | XMS_ITS | CCD ---
Author Organization [facility] Care Team Providers Care Chocolate Maker Name Role Phone PROVIDER, UNKNOWN Attending Unavailable PROVIDER, UNKNOWN Referring Unavailable Balbina, PCP Primary Care Unavailable Joe Perez Primary Care Provider UnavailMICHAEL Staley Referring Unavailab JOE Asif Primary Care Unavailable MICHAEL SMALLS Referring Unavailab JOE Asif Primary Care Unavailable JOE PEREZ Primary Care Physician Maribel Randall Unavailable Amy Goodrich Unavailable CAITIE MARSHALL Primary Care Physician [phone] CAITIE MARSHALL Primary Care Physician [phone] MD Lucia Thorne Attending Provider [phone] PAY, DR MARCUS Admitting Unavailable PAY, DR MARCUS Attending Unavailable PAY, DR MARCUS Consulting Unavailable JOSE G, DR JOE Joseph Primary Care Unavailable GRECHMEDHAT YANG Consulting Unavailable JOSE G, DR JOE Joseph Primary Care Unavailable AMY GOODRICH JR Admitting Unavailable MIGUE, DR SUGAR Zhang Consulting Unavailable AMY GOODRICH JR Attending Unavailable AMY GOODRICH JR Consulting Unavailable JOSE G, DR OJE Joseph Consulting Unavailable JOSE G, DR JOE Joseph Primary Care Unavailable JOSE G, DR JOE Joseph Admitting Unavailable JOSE G, DR JOE Joseph Attending Unavailable MACARENA, DR TYLER Admitting Unavailable JOSE G, DR JOE Joseph Primary Care Unavailable MACARENA, DR TYLER Attending Unavailable MACARENA, DR TYLER Consulting Unavailable Unallocated , Noms Provider Primary Care Provi fatuma Unallocated , Noms Provider Primary Care Provi fatuma Eldon Mccracken DO Attending Provider [phone] Eldon Mccracken Attending Unavailable Kaykay, Eldon Admitting Unavailable NO PCP, NO PCP Primary Care Unavailable AMRIT WINSLOW Attending Unavailable KAYKAY, ELDON Attending Unavailable MORELIA, [...] Unavailable KAYKAY, ELDON Attending Unavailable Allergies Allergy ClassificationReported Allergen(s)Allergy TypeDate of OnsetReaction(s) Facility (20 sources)Contrast media; 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: [red dye]Drug ntufphz67-69-8498judfrLas [place] [employer] Other (20 sources)Red Dye #40 (Allura Red)Allergy to -18-2303[facility] Work Phone: Medications Current Medications MedicationDrug Class(es)DatesSig (Normalized)Sig (Original)sensor 200 actuat albuterol 0.09 mg/actuat dry powder inhaler (17 sources)beta2-Adrenergic AgonistStart: 03-08-2024 End: 83-15-1030xsbr 2 puff(s) by inhalation every four hoursalbuterol (ProAir Digihaler) 90 mcg/act breath-activated inhaler (w/ sensor) Inhale 2 puffs every 4(four) hours if needed 03/08/2024 06/08/2024 DiscontinuedStart: 03-08-2024 Albuterol Sulfate Active 2 INH INHALATION EVERY 4-6 HOURS 6.7 March 08, 2024 12:00amAlbuterol Sulfate 90 mcg/actuation HFA aerosol inhaler (1 source)Start: 41-98-5346Qynnvhrrm Sulfate 90 mcg/actuation HFA aerosol inhaler Active 2 INH INHALATION EVERY 4-6 HOURS as needed for shortness of breath or wheezing 6.7 March 07, 2024 11:00pmcephalexin 500 mg oral capsule (6 sources)Cephalosporin AntibacterialStart: 07-06-2024 End: 30-11-3171achw 1 capsule by mouth in the morningcephalexin (Keflex) 500 MG capsule Indications: Ear infection Take 1 capsule (500 mg) by mouth in the morning and 1 capsule (500 mg) before bedtime. Do all this for 7 days. 14 capsule 07/06/2024 07/13/2024 Activedicyclomine hydrochloride 20 mg oral tablet (2 sources)AnticholinergicStart: 54-24-8287zbkw 1 tablet by mouth every twelve hoursDicyclomine HCl 20 MG 1 tablet Orally TWICE A DAY for 30 day(s) Jul, Activedocusate sodium 100 mg oral capsule (2 sources)Start: 03-16-2024 End: 50-48-1052rbuo 1 capsule by mouth twice daily as needed for constipation docusate sodium (Colace) 100 MG capsule Indications: Constipation, unspecified constipation type Take 1 capsule (100 mg) by mouth 2 (two) times a day as needed for constipation 30 capsule 2 03/16/2024 04/15/2024 Active{21 (Ethinyl Estradiol 0.035 MG / norgestimate 0.25 MG Oral Tablet) / 7 (Inert Ingredients 1 MG Oral Tablet) } Pack [Sprintec 28 Day] (2 sources)Progestin, EstrogenStart: 54-53-4120utcu 1 tablet by mouth once daily Sprintec oral tablet Ib, Oral, Daily, control/menstrual regulation Start Date: 01/24/20 Status: Orderedfluconazole 150 mg oral tablet (1 source)Azole AntifungalStart: 98-46-8538Iolugruy 150 MG 1 tablet Orally take 1 tablet now for 1 days Mar, ActivehydrOXYzine hydrochloride 10 mg oral tablet (2 sources)AntihistamineStart: 40-68-5930jwel 1 tablet by mouth three times daily as neededHydroxyzine Hcl 10 mg tablet Active 10 MG PO Three times daily as needed August 20, 2023 12:00amibuprofen 600 mg oral tablet (3 sources)Nonsteroidal Anti-inflammatory DrugStart: 45-42-1084zmlx 1 tablet by mouth every six hours as needed for painibuprofen 600 mg Tab 600 mg = 1 tab(s), Oral, q6hr, PRN as needed for pain Start Date: 01/24/20 Status: Orderedloratadine 10 mg oral tablet (2 sources)Start: 06-46-0550pikk 1 tablet by mouth once dailyloratadine (CLARITIN) 10 MG tablet Take 1 tablet by mouth daily 30 tablet 0 08/10/2018 Activemagnesium oxide 400 mg oral tablet (20 sources)Start: 02-17-2024 End: 49-36-8194tpyg 1 tablet by mouth once dailymagnesium oxide (Mag-Ox) 400 MG tablet Indications: Nonintractable headache, unspecified chronicitypattern, unspecified headache type Take 1 tablet (400 mg) by mouth Daily 30 tablet 6 02/17/2024 09/14/2024 Activepolyethylene glycol 3350 86196 mg powder for oral solution (2 sources)Osmotic LaxativeStart: 09-20-2024 End: 26-77-7093wwly 17 g by mouth once dailypolyethylene glycol, PEG, 3350 (Miralax) 17 g packet Indications: Constipation, unspecified constipation type Take 17 g by mouth Daily for 3 days 3 packet 09/20/2024 09/23/2024 Active polysaccharide iron complex 391 mg oral capsule (6 sources)Start: 05-24-2024 End: 86-41-6014isgq 1 capsule by mouth once dailyiron polysaccharides (ProFe) 391.3 (180 Fe) MG capsule Indications: Anemia during in third trimester Take 1 capsule (391.3 mg) by mouth Daily 30 capsule 6 05/24/2024 06/08/2024 Discontinuedpramoxine hydrochloride 10 mg/ml rectal foam (1 source)Start: 02-13-2022 End: 97-60-8320nafj 15 g rectal route twice dailyProctoFoam 1% Foam apply, Rectal, BID for 7 day(s), 15 gm, Refill(s) 0, [id number], 162, cm, 02/13/22 6:24:00 EDT, Height/Length Dosing, 61, kg, 02/13/22 6:24:00 EDT, Weight Dosing Start Date: 02/13/22 Stop Date: 02/20/22 Status: OrderedSprintec 28 (5 sources)Sprintec 28 ActiveSprintec oral tablet (1 source)Start: 58-82-0758ebtk 1 tablet by mouth once dailySprintec oral tablet Ib, Oral, Daily, control/menstrual regulation Start Date: 01/24/20 Status: Ordered Completed/Discontinued Medications MedicationDrug Class(es)DatesSig (Normalized)Sig (Original)Cetirizine (1 source)Histamine-1 Receptor AntagonistCetirizine HCl Not-Taking dextromethorphan hydrobromide 15 mg / guaiFENesin 400 mg / pseudoephedrine hydrochloride 60 mg oraltablet (2 sources)alpha-Adrenergic Agonist, Uncompetitive R-gjpzsl-M-aspartate Receptor Antagonist, Sigma-1 AgonistStart: 08-20-2023 End: 93-19-8675ybmp 4 tablets by mouth every twenty-four hours as needed Zpvlvirbknsezlu-Lp-Pwelmcnvcjv (Capmist Dm) 60-15-400 mg tablet Discontinued 1 TAB PO EVERY 4-6 HOURS as needed for cold symptoms August 20, 2023 12:00am March 08, 2024 5:15pm do not exceed 4 doses per 24 hrsDrospirenone-Ethinyl Estradiol (3 sources)Progestin, EstrogenStart: 07-28-2021 End: 79-14-1553dyvq 1 tablet by mouth once dailyDrospirenone-Ethinyl Estradiol 3-0.03 mg tablet Discontinued 1 TAB PO Daily July 28, 2021 12:00am August 20, 2023 2:21pmStart: 07-28-2021 End: 31-82-8646ylep 1 tablet by mouth once dailyDrospirenone-Ethinyl Estradiol Discontinued 1 TAB PO Daily July 28, 2021 1:00am August 20, 2023 3:21pm Start: 84-12-5770gbuv 1 tablet by mouth once dailyDrospirenone-Ethinyl Estradiol Active 1 TAB PO Daily July 28, 2021 1:00amhydrocortisone 25 mg/ml topical cream (4 sources)CorticosteroidStart: 20-35-2140Wyryab-HC 2.5 % 1 application Externally Twice a day for 14 days Jun, Not-TakingHyoscyamine (1 source)Hyoscyamine Sulfate Not-TakingpredniSONE 20 mg oral tablet (2 sources)Start: 08-20-2023 End: 31-48-3407pipg 1 tablet by mouth twice dailyPrednisone 20 mg tablet Discontinued 20 MG PO Twice daily 03 18August 20, 2023 12:00am March 08, 2024 5:16pmPrenatal Byxarhws-Saj-Vn-FA ( 1 + IRON PO) (20 sources) End: 39-72-9475Pzjtqxuz Ghxfxnxi-Psb-Yv-FA ( 1 + IRON PO) Take by mouth 08/30/2024 DiscontinuedPrenatal Dwvmriuc-Wpc-Fc-FA ( 1 + IRON PO) Take by mouth ActiveSenna Leaves (1 source)Senna Not-Taking Problems Active Problems Problem ClassificationProblemDateDocumented DateEpisodic/ChronicAbdominal pain (13 sources)Unspecified abdominal pain; 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: [Abdominal pain]Onset: 06-25-2021 Resolved: 33-19-0307HfftmtpyFwkpsxo on above:Problem List clean-up per request of Phys. EHR CmteAnal and rectal conditions (5 sources)Rectal pain; 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: [Other specified diseases of anus and rectum]EpisodicE Codes: Natural/environment (1 source)Bitten by cat, initial encounter; 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: [BITTEN BY CAT INITIAL ENCOUNTER]Onset: 46-40-8365HkaacwjqJoiwkjwtshfjitas hemorrhage (11 sources)Rectal hemorrhage; 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: [Hemorrhage of anus and rectum] Onset: 06-25-2021 Resolved: 22-38-0511ItruntchNpaoxsa on above:Problem List clean-up per request of Phys. EHR CmteGenitourinary symptoms and ill-defined conditions (3 sources)Dysuria; 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: [DYSURIA]Onset: 56-87-6545MdlujbvhHnjyeutzwjx (1 source)Hemorrhoids; 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: [Unspecified hemorrhoids]Onset: 02-13-2022 EpisodicImmunizations and screening for infectious disease (3 sources)Contact with or exposure to other viral diseases; 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: [Exposure to 2019 novel coronavirus]53-90-3423LzcgqdfzZagyt disorders and dislocations; trauma-related (3 sources)Tear of lateral meniscus of sxsn62-71-1749VtegihtgNboj wounds of extremities (4 sources)Open bite of right hand, initial encounter; 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: [OPEN BITE RIGHT HAND INITIAL ENC]Onset: 43-03-0714DaoqqdgcCcesk aftercare (1 source)snf (current) use of hormonal contraceptives; 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: [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 CONTRACEPTIVES]Onset: 42-05-9232WahkrdhgRuijm circulatory disease (2 sources)Other specified symptoms and signs involving the circulatory and respiratory systems; 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:[Oth symptoms and signs involving the circ and resp systems]Onset: 34-87-4626YyarenmvCoaux complications of (2 sources)Anemia of ; 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: [Anemia complicating , third trimester]22-09-1877TktkagaZvyqb complications of (4 sources)Excessive growth affecting management of mother; 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: [Maternal care for excessive growth, unspecified trimester, not applicable or unspecified]19-83-2789AxaoomzjUdmox gastrointestinal disorders (3 sources)Irritable bowel eytreipf14-16-2170LatqfsoMaknn gastrointestinal disorders (5 sources)Irritable bowel syndrome characterized by constipation; 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: [Irritable bowel syndrome with constipation]ChronicOther gastrointestinal disorders (3 sources)Diarrhea; 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: [Diarrhea, unspecified]17-34-9754Oxfmyggt Comment on above:Problem List clean-up per request of Phys. EHR CmteOther gastrointestinal disorders (6 sources)Constipation; 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: [Constipation, unspecified]03-16-2024 EpisodicOther lower respiratory disease (1 source)Disorder of respiratory system; 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: [Other specified respiratory disorders]Onset: 06-70-2091ZoncmamwIlcnz and delivery including normal (20 sources)Second trimester ; 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: [Encounter for supervision of normal , unspecified, second trimester]30-37-5713NvlptcvsCiwgr screening for suspected conditions (not mental disorders or infectious disease) (7 sources)Patient encounter status; 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: [Encounter for screening for diabetes mellitus]Onset: 848612-57-4039AwhtdydaFsgvz upper respiratory infections (3 sources)Acute upper respiratory infection, unspecified; 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: [Acute pharyngitis, unspecified]Onset: 492501-26-3627StxasprzAmghvx media and related conditions (2 sources)Infection of ear; 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: [Otitis media, unspecified, unspecified ear]80-61-8793OglnwiadAwnssco cyst (2 sources)Cyst of ovary; 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: [Unspecified ovarian cyst, unspecified side]34-00-9143OqxbcvyuUhdiiknr codes; unclassified (2 sources)Gestation period, 20 weeks; 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: [20 weeks gestation of ]40-90-3828HetlspoaQxfmghjl codes; unclassified (2 sources)Gestation period, 29 weeks; 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: [29 weeks gestation of ]57-82-9339LirruuxlOzwwaoip codes; unclassified (2 sources)Gestation period, 30 weeks; 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: [30 weeks gestation of ]66-83-1187CugjexqgOqlrtrtm codes; unclassified (2 sources)Gestation period, 32 weeks; 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: [32 weeks gestation of ]15-13-5454RfnindttBfnnkxpv codes; unclassified (2 sources)Gestation period, 34 weeks; 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: [34 weeks gestation of ]69-05-2169KpbxwrmvXxjvfbxm codes; unclassified (2 sources)Gestation period, 36 weeks; 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: [36 weeks gestation of ]40-20-8409XzzvfocvCiorgdop codes; unclassified (2 sources)Gestation period, 35 weeks; 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: [35 weeks gestation of ]95-96-7860MnsqbumvNodehews codes; unclassified (2 sources)Gestation period, 37 weeks; 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: [37 weeks gestation of ]76-04-9749QbyqmmioSucngqpi codes; unclassified (2 sources)Gestation period, 38 weeks; 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: [38 weeks gestation of ]62-28-5008FrdgvgnyOxbeibhm codes; unclassified (2 sources)Gestation period, 39 weeks; 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: [39 weeks gestation of ]07-70-7448WuglouewFalr and subcutaneous tissue infections (1 source)Cellulitis of right upper limb; 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: [CELLULITIS OF RIGHT UPPER LIMB]Onset: 22-29-4382SoljenxoZztztrsem-related disorders (1 source)Nicotine dependence, cigarettes, uncomplicated; 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: [NICOTINE DEPEND CIGARETTES UNCOMP]Onset: 14-59-1279HxlojedOtvmxrlydcu injury; contusion (2 sources)Abrasion of left hand, initial encounter; 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: [Abrasion of right hand, initial encounter]Onset: 42-17-1366IzpdlyvnSgrrbrbcqrzq (1 source)Injury of right knee; 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: [Injury of right knee, initial encounter]Urinary tract infections (1 source)Urinary tract infection, site not specified; 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: [UTI SITE NOT SPECIFIED]Onset: 30-30-1450XnewibbmErnjj infection (2 sources)Viral disease; 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: [Other viral agents as the cause of diseases classified elsewhere]Onset: 88-75-2618Giygmqyk Past or Other Problems Problem ClassificationProblemDateDocumented DateEpisodic/ChronicHeadache; including migraine (2 sources)Headache; 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: [Nonintractable headache, unspecified chronicity pattern, unspecified headache type]53-85-8305XghyhhtmVyxgiol and fatigue (4 sources)Other fatigue; 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: [OTHER FATIGUE]Onset: 50-36-9689Nvuzohyx Other eye disorders (1 source)Other disorders of sclera; 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: [OTHER DISORDERS OF SCLERA] Onset: 47-62-8731YqmyaliqHqakw female genital disorders (1 source)Other specified noninflammatory disorders of vagina; 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: [Vaginal discharge N89.8]Onset: 04-08-2021 Resolved: 29-38-9908YtnjzkfvWjgyo female genital disorders (2 sources)Vaginal discharge; 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: [Other specified noninflammatory disorders of vagina]54-01-7740DmxqukfgViakz gastrointestinal disorders (2 sources)Diarrhea, unspecifiedOnset: 06-25-2021 Resolved: 80-00-8012UupnfwhqXmmbrpjb codes; unclassified (1 source)High risk bisexual behavior; 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: [High risk bisexual behavior Z72.53]Onset: 04-08-2021 Resolved: 63-30-4288VytkvnvgKscrhzie codes; unclassified (20 sources)Gestation period, 24 weeks; 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: [24 weeks gestation of ]Onset: 04-17-2024 Resolved: 404429-29-6117OaasbeycAdhclsii codes; unclassified (2 sources)Gestation period, 17 weeks; 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: [17 weeks gestation of ]15-88-3331Wobvgfjq Results Test NameValueInterpretationReference RangeFacilityHCG ( test) Ql (U)on 46-18-8473Abpknslaeoasyy and review of laboratory resultsNormalNOMS Healthcare Preg Test, UrNegativeNegativeNOMS HealthcareNOMS HealthcareUrinalysis macro (dipstick) panel (U)on 05-49-6953Pqqlpkqxk, UANegativeNegative - 4(70) +++ mg/dL [facility] HealthcareBlood, UANegativeNegative - 50 Erwin/mcLNOMS HealthcareClarity, UA ClearNOMS HealthcareColor, UAYellowNOMS HealthcareGlucose, UANegativeNegative - 2000(110) ++++ mg/dLNOMS HealthcareInterpretation and review of laboratory resultsAbnormalNOMS HealthcareKetones, UAPositiveNegative - 160(16) ++++ mg/dL [facility] HealthcareComment on above:traceLeukocytes, UANegativeNegative - 500+++ Kevin/mcLNOMS HealthcareNitrite, UANegativeNegative - PositiveNOMS HealthcarepH, UA65 - 9NOMS HealthcareProtein, UATraceNegative - 2000(20) ++++ mg/dLNOKY HealthcareSpec Grav, UA1.0251 - 1.03NOMS HealthcareUrobilinogen, UA0.20.2 - 12 mg/dLNOMS HealthcareNOMS HealthcareCBC WITH AUTO DIFFERENTIALon 12-20-2024 BASOPHILS ABSOLUTE COUNT (10*3/UL) BY AUTOMATED COUNT0.0 10*3/uLNormal0.0-0.2 [facility] HospitalComment on above:Performed By: #### CBCA #### [facility] ([address] [address] VIRBASOPHILS RELATIVE PERCENT BY AUTOMATED COUNT0.6 %Normal [facility] HospitalComment on above:Performed By: #### CBCA #### [facility] ([address] [address] VIRCELLAVISION DIFFERENTIAL TYPEAUTOMATED DIFFERENTIALNormal [facility] HospitalComment on above:Performed By: #### CBCA #### [facility] ([address] [address] VIREosinophils (Bld) [#/Vol]0.1 10*3/uLNormal0.0-0.4[facility] HospitalComment on above:Performed By: #### CBCA #### [facility] ([address] [address] VIREOSINOPHILS RELATIVE PERCENT BY AUTOMATED COUNT0.9 %Normal [facility] HospitalComment on above:Performed By: #### CBCA #### [facility] ([address] [address] VIRErythrocyte distribution width (RBC) [Ratio]13.6 %Normal 11.5-15ProTexas Health AllenComment on above:Performed By: #### CBCA #### [address] [address] VIRHematocrit (Bld) [Volume fraction]35.7 %Viboyv41-55 [facility] HospitalComment on above:Performed By: #### CBCA #### [facility] ([address] [address] VIRHemoglobin (Bld) [Mass/Vol]12.2 g/dDAbkppl81.7-15.5 [facility] HospitalComment on above:Performed By: #### CBCA #### [facility] ([address] [address] VIRLYMPHOCYTES ABSOLUTE COUNT (10*3/UL) BY AUTOMATED COUNT3.3 10*3/uLNormal1.0-3.5PParkview Health Montpelier HospitalComment on above:Performed By: #### CBCA #### [facility] ([address] [address] VIRLYMPHOCYTES RELATIVE PERCENT BY AUTOMATED COUNT45.1 %Normal [facility] HospitalComment on above:Performed By: #### CBCA #### [facility] ([address] [place] [address] VIRMCH (RBC) [Entitic mass]29.3 teUgidlr47-58DnxPidruqVan Wert County HospitalComment on above:Performed By: #### CBCA #### [facility] ([address] [place] [address] VIRMCHC (RBC) [Mass/Vol]34.3 g/gBNewdcc93-49OtyDdogzqTexas Health AllenComment on above:Performed By: #### CBCA #### [facility] ([address] [place] [address] VIRMCV (RBC) [Entitic vol]85 uHZoukhp33-917FvhCiqphi [facility] HospitalComment on above:Performed By: #### CBCA #### [facility] ([address] [place] [address] VIRMONOCYTES ABSOLUTE COUNT (10*3/UL) BY AUTOMATED COUNT0.6 10*3/uLNormal0.0-0.9[facility] HospitalComment on above:Performed By: #### CBCA #### [facility] ([address] [place] [address] VIRMONOCYTES RELATIVE PERCENT BY AUTOMATED COUNT8.0 %Normal [facility] HospitalComment on above:Performed By: #### CBCA #### [facility] ([address] [place] [address] VIRNEUTROPHILS ABSOLUTE COUNT BY AUTOMATED COUNT3.3 10*3/uL Normal1.5-6.6[facility] HospitalComment on above:Performed By: #### CBCA #### [facility] ([address] [place] [address] VIRNEUTROPHILS RELATIVE PERCENT BY AUTOMATED COUNT45.4 %Normal [facility] HospitalComment on above:Performed By: #### CBCA #### [facility] ([facility]) [facility] [address] [place] [address] VIRPlatelet mean volume (Bld) [Entitic vol]7.9 fLNormal7-12 [facility] HospitalComment on above:Performed By: #### CBCA #### [facility] ([facility]) [facility] [place] [address] VIRPlatelets (Bld) [#/Vol]432 10*3/gEBgylsg664-216ScaRovksp [facility] HospitalComment on above:Performed By: #### CBCA #### [facility] ([facility]) [facility] [address] [place] [address] VIRRBC COUNT4.18 X10E12/LNormal3.8-5.2PParkview Health Montpelier HospitalComment on above:Performed By: #### CBCA #### [facility] ([address] [place] [address] VIRWBC (Bld) [#/Vol]7.3 10*3/uLNormal4-11ProTexas Health AllenComment on above:Performed By: #### CBCA #### [facility] ([facility]) [address] [place], [place] [address] [address] VIRCOMPREHENSIVE METABOLIC PANELon 61-68-4442Jmaltci [Mass/Vol]4.4 g/dLNormal3.2-5.3PParkview Health Montpelier HospitalComment on above: Performed By: #### CMP #### [facility] ([facility]) [address] [place], [place] [address] [address] VIRALP [Catalytic activity/Vol]81 U/UBdajyl96-710WreJrrlzfTexas Health AllenComment on above:Performed By: #### CMP #### [facility] ([place] [address] [place] [address] VIRALT [Catalytic activity/Vol]21 U/LNormal<=31[facility] HospitalComment on above:Performed By: #### CMP #### [facility] ([address] [facility] [place] [address] VIRAnion gap [Moles/Vol]9 mmol/LNormal5-15ProTexas Health AllenComment on above:Performed By: #### CMP #### [facility] ([address] [facility] [place] [address] VIRAST [Catalytic activity/Vol]16 U/LNormal<=41ProTexas Health AllenComment on above:Performed By: #### CMP #### [facility] ([address] [place] [address] VIRBilirubin [Mass/Vol]0.5 mg/dLNormal0.3-1.2PParkview Health Montpelier HospitalComment on above:Performed By: #### CMP #### [facility] ([address] [facility] [place] [address] VIRCalcium [Mass/Vol]9.5 mg/dLNormal8.5-10.5PParkview Health Montpelier HospitalComment on above:Performed By: #### CMP #### [facility] ([address] [place] [address] VIRChloride [Moles/Vol]104 mmol/JVoxiwl77-213PsrAtnpnnTexas Health AllenComment on above:Performed By: #### CMP #### [facility] ([address] [facility] [place] [address] VIRCO2 [Moles/Vol]24 mmol/ONvnivt81-29VcxGmmygw [facility] HospitalComment on above:Performed By: #### CMP #### [facility] ([address] [place] [address] VIRCreatinine [Mass/Vol]0.48 mg/dLNormal0.40-1.00ProTexas Health AllenComment on above:Result Comment: METHOD TRACEABLE TO IDMS STANDARDPerformed By: #### CMP #### [facility] ([address] [place] [place] [address] VIREGFR (CKD-EPI) NON-RACE DEPENDENT>^90Normal>=60ProTexas Health AllenComment on above:Result Comment: eGFR not reported due to non- numeric value for Creatinine. Reported eGFR is based on the CKD-EPI 2020 equation that does not use a race coefficient.Performed By: #### CMP #### [facility] ([address] [place] [address] VIRGlucose [Mass/Vol]88 mg/oHNddcli79-03ZfiZnydfcTexas Health AllenComment on above:Performed By: #### CMP #### [address] [place] [address] VIRPotassium [Moles/Vol]3.9 mmol/LNormal3.5-5.0ProTexas Health AllenComment on above:Performed By: #### CMP #### [facility] ([address] [place] [address] VIRProtein [Mass/Vol]7.5 g/dLNormal6.0-8.0ProTexas Health AllenComment on above:Performed By: #### CMP #### [facility] ([address] [place] [address] VIRSodium [Moles/Vol]137 mmol/EDevyrx769-889MyxRejclt Fremont HospitalComment on above:Performed By: #### CMP #### [address] [address] VIRUrea nitrogen [Mass/Vol]16 mg/dLNormal5-23ProTexas Health AllenComment on above:Performed By: #### CMP #### [facility] ([address] [place] [address] VIRCT ABDOMEN AND PELVIS W CONTon 29-78-0513EP ABDOMEN AND PELVIS W CONTCT ABDOMEN AND PELVIS W CONT ABDOMEN AND PELVIS CT WITH CONTRAST HISTORY: Right lower quadrant pain COMPARISON: CT 11/24/2022 TECHNIQUE: CT abdomen and pelvis was performed. Axial images were obtained following the uneventfuladministration of 100 cc Omnipaque 300 nonionic intravenous contrast. Coronal and sagittal reformatted images were obtained and reviewed. Automated exposure control was utilized. FINDINGS: Liver is unremarkable. Gallbladder is contracted. No intra-axial hepatic biliary ductal dilatation. The spleen, pancreas, and adrenals unremarkable. Bilateral kidneys have symmetrically. No hydronephrosis or hydroureter. Small bowel is nondilated. Air and stool are seen distally in a nonobstructive bowel gas pattern. There is no intra-abdominal free air or pneumatosis. The appendix visualized and unremarkable. 2.1 cm right ovarian cyst is enlarged. The lung bases are clear. Degenerative changes, disc osteophyte complex at L5-S1. IMPRESSION: * 2.1 cm right ovarian cyst, likely physiologic. * Otherwise no acute abnormality of the abdomen or pelvis. All CT scans at this facility use dose modulation, iterative reconstruction, and/or weight based dosing when appropriate to reduce radiation dose to as low as reasonably achievable. Finalized by Abhijit Montenegro on 12/20/2024 5:35 AMNormalVan Wert County Hospital LIPASEon 93-18-5421Zxuozm [Catalytic activity/Vol]31 U/UWysfhk91-33HciAncwpwVan Wert County HospitalComment on above:Performed By: #### LIPA #### [facility] ([address] [address] VIRPOCT NURSING URINE MACROSCOPIC UAon 96-67-7394YNCOKJBOI ELY NegativeNormalNegativeProTexas Health AllenComment on above:Performed By: #### NUM #### [facility] ([address] [address] VIRBLOOD/HGB NURNegativeNormalNegativeProTexas Health AllenComment on above:Performed By: #### NUM #### [facility] ([address] [address] VIRGLUCOSE NURNegativeNormalNegativeVan Wert County Hospital Comment on above:Performed By: #### NUM #### [facility] ([address] [address] VIRKETONES NURNegativeNohaywood regional medical centerNegativeVan Wert County Hospital Comment on above:Performed By: #### NUM #### [facility] ([address] [address] VIRLEUKOCYTE ESTERASE NURNegativeNormalNegativeVan Wert County HospitalComment on above:Performed By: #### NUM #### [facility] ([address] [address] VIRNITRITE NURNegativeNohaywood regional medical centerNegRegency Hospital Cleveland West Comment on above:Performed By: #### NUM #### [facility] ([address] [address] VIRPH NUR6.7Jfzdvw4.0, 6.0, 6.5, 7.0, 7.5, 8.0, 8.5, 5.5 [facility] County HospitalComment on above:Performed By: #### NUM #### [facility] ([address] [address] VIRPROTEIN NURNegativeNormalNegRegency Hospital Cleveland West Comment on above:Performed By: #### NUM #### [facility] ([address] [address] VIRSPECIFIC GRAVITY ELY>=1.551Sxmqnvzl2.010, 1.015, 1.020, 1.025Van Wert County HospitalComment on above:Performed By: #### NUM #### [facility] ([address] [address] VIRUROBILINOGEN NUR0.2 E.U./dLNormSuburban Community Hospital & [facility] Comment on above:Performed By: #### NUM #### [facility] ([facility]) [address] [place] [address] [place] [address] VIRPOCT , URINE (NUCG)on 37-92-1850Lkyh HCG ( test) Ql (U)NegativeNormalNegative, IndeterminateVan Wert County HospitalComment on above:Performed By: #### NUCG #### [facility] ([facility]) [address] [place] [address] [place] [address] VIRPREGNANCY, URINEon 62-16-1153Plaw HCG ( test) Ql (U)UPREG , URINE CancelledNormalVan Wert County HospitalUS PELVIC WITH TRANSVAGINAL AND DUPLEXon 35-12-3437XL PELVIC WITH TRANSVAGINAL AND DUPLEX US PELVIC WITH TRANSVAGINAL AND DUPLEX CLINICAL INFORMATION: Evaluate for Ovarian Torsion. Right lower quadrant pain TECHNIQUE: Real-time transabdominal and transvaginal sonographic evaluation of the pelvis was performed with walton scale and color flow imaging. Transabdominal imaging performed to evaluate for extra adnexal pelvic pathology. Transvaginal imaging performed for better delineation of the adnexal and endometrial contents. Real time walton scale, color flow imaging and duplex spectral Doppler waveform analysis evaluation was performed of the major arterial inflow and venous outflow structures of the ovaries with arterialand venous spectral waveforms obtained and reviewed in view of the clinical history of Evaluate forOvarian Torsion . COMPARISON: No relevant prior studies available. FINDINGS: Uterus measures 9.0 cm in length and 4.1 cm in AP diameter. Endometrium measures 17.5 mm. Myometrium unremarkable Right ovary 4.7 x 2.8 x 2.9 cm. Left ovary 3.3 x 2.6 x 2.4 cm. Arterial and venous blood flow seen in each ovary. Small follicles. Symmetric echotexture within each ovary. The arterial and venous waveforms are within normal limits. IMPRESSION: * Unremarkable pelvic ultrasound. Specifically, no findings of torsion. Finalized by Vincent Urias MD on 12/20/2024 7:42 AMNormalVan Wert County Hospital ALL CBC WITH AUTO DIFFon 07-97-4345XYZXDDCHC ABSOLUTE SHFM9AIOJ Healthcare Basophils/100 WBC (Bld)0.2 %0.2 - 2.0 %NOMS HealthcareEosinophils/100 WBC (Bld)0 %Low0.9 - 7.0 %NOMS HealthcareErythrocyte distribution width (RBC) [Ratio]22.5 % High11.0 - 15.0 %NOMS HealthcareHematocrit (Bld) [Volume fraction]28.1 %Low36.0 - 48.0 %NOMS HealthcareHemoglobin (Bld) [Mass/Vol]9 g/dLLow12.0 - 16.0 g/dLNOCenterpoint Medical CenterIMMATURE GRANULOCYTES ABS AUTO0.07HighNOKY HealthcareImmature granulocytes/100 WBC (Bld)0.4 %0.0 - 0.5 %[facility]OM[facility] HealthcareInterpretation and review of laboratory resultsAbnormalNOKY HealthcareLYMPHOCYTES ABSOLUTE AUTO1.5 NOMS HealthcareLymphocytes/100 WBC (Bld)9.1 %Low20.5 - 60.0 %[facility] HospitalMCH (RBC) [Entitic mass]27.4 pg26.7 - 34.0 pgNOCenterpoint Medical CenterMCHC (RBC) [Mass/Vol]32 g/dL29.9 - 35.2 g/dLSaint Luke's East HospitalMCV (RBC) [Entitic vol]85.7 fL81.0 - 99.0 fL NOMS HealthcareMONOCYTES ABSOLUTE AUTO0.9HighNOKY HealthcareMonocytes/100 WBC (Bld)5.7 %1.7 - 12.0 %NOMS HealthcareNEUTROPHILS ABSOLUTE WRKH42HjqoIQYX HealthcareNeutrophils/100 WBC (Bld)84.6 %High43.0 - 75.0 %[facility] Platelet mean volume (Bld) [Entitic vol]9.8 fL9.5 - 13.5 fLNOCenterpoint Medical CenterTBH EO #0NOMS HealthcareTBH ZRX762PRHWCenterpoint Medical CenterTB RBC3.28LowNOCenterpoint Medical CenterTB WBC 16.6HighNOCenterpoint Medical CenterCLINISYNCNOMS HealthcareFetal Screenon 86-67-2131Xdlrc ScreenNegativeNormalNegativeThe Atrium Health Pineville Physician GroupComment on above:Order Comment: COLLECTION 08/03/24620 AT [facility]ITALResult Comment: 1 dose(300mcg)of RhoGAM indicated PERFORMED BY: [facility] [place] [address] PATHOLOGIST JEWEL SUPERVISOR AMBER RUBIO M.D.[facility] CBC WITH PLATELET NO DIFFERENTIALon 08-01-2024 Erythrocyte distribution width (RBC) [Ratio]22.8 %High11.0 - 15.0 %NOMS HealthcareHematocrit (Bld) [Volume fraction]32.1 %Low36.0 - 48.0 %NOMS HealthcareHemoglobin (Bld) [Mass/Vol]10.3 g/dLLow12.0 - 16.0 g/dLMOAB REGIONAL HOSPITAL Healthcare Interpretation and review of laboratory resultsAbnormalI-70 Community HospitalH (RBC) [Entitic mass]27.3 pg26.7 - 34.0 pgNOHarry S. Truman Memorial Veterans' HospitalHC (RBC) [Mass/Vol]32.1 g/dL 29.9 - 35.2 g/dLSaint Luke's East HospitalMCV (RBC) [Entitic vol]85.1 fL81.0 - 99.0 fLSaint Luke's East HospitalPlatelet mean volume (Bld) [Entitic vol]10 fL9.5 - 13.5 fLNOCenterpoint Medical CenterTBH [id number] Medical CenterTBH RBC3.77LowNOCenterpoint Medical CenterTB WBC7.7NOKY HealthcareCLINISYNCNOKEENE M[facility]IC[facility] HealthcareUrinalysis macro (dipstick) panel (U)on 70-50-1489Exomjjkmp, UANegativeNegative - 4(70) +++ mg/dLNOKY HealthcareBlood, UANegativeNegative - 50 Erwin/mcLNOKY HealthcareClarity, UAClearNOKY Healthcare Color, UAYellowNOKY HealthcareGlucose, UANegativeNegative - 1999(110) ++++ mg/dL [facility] HealthcareInterpretation and review of laboratory resultsNormalMOAB REGIONAL HOSPITAL HealthcareKetones, UANegativeNegative - 160(16) ++++ mg/dLNOKY Healthcare Leukocytes, UANegativeNegative - 500+++ Kevin/mcLNOMS HealthcareNitrite, UA NegativeNegative - PositiveNOKY HealthcarepH, UA6.55 - 9NOMS HealthcareProtein, UANegativeNegative - 1999(20) ++++ mg/dLNOKY HealthcareSpec Grav, UA1.0251 - 1.03NOMS HealthcareUrobilinogen, UA0.20.2 - 12 mg/dLNOMS HealthcareNOMS HealthcareUrinalysis macro (dipstick) panel (U)on 66-23-6470Yabqpjaxv, UA NegativeNegative - 4(70) +++ mg/dLNOMS HealthcareBlood, UANegativeNegative - 50 Erwin/mcLNOMS HealthcareClarity, UAClearNOMS HealthcareColor, UAYellowNOMS HealthcareGlucose, UANegativeNegative - 2000(110) ++++ mg/dLNOMS Healthcare Interpretation and review of laboratory resultsNormalNOMS HealthcareKetones, UA NegativeNegative - 160(16) ++++ mg/dLNOMS HealthcareLeukocytes, UANegative Negative - 500+++ Kevin/mcLNOMS HealthcareNitrite, UANegativeNegative - Positive NOMS HealthcarepH, UA6.55 - 9NOMS HealthcareProtein, UANegativeNegative - 2000(20) ++++ mg/dLNOMS HealthcareSpec Grav, UA1.0151 - 1.03N[facility] Healthcare Urobilinogen, UA0.20.2 - 12 mg/dLNOMS HealthcareNOMS HealthcareALL MISCELLANEOUS TESTon 35-23-8890AWLLMYIZNDIPT TESTCOMMENT.[facility] HealthcareComment on above:Test Ordered: 349357 Strep Gp B Culture+Rflx Strep Gp B Culture+Rflx Negative CB Reference Range: Negative Centers for Disease Control and Prevention (CDC) and [place] [employer] of Obstetricians and Gynecologists (ACOG) guidelines [...] resistance to clindamycin is noted. Performed at: [facility] [id number] Tap Puller: Mayito Shearer PhD, Phone: [phone] GROUP B STREP 119442 Group B Streptococcus Colonization Detection Culture With Re CLINISYNCNOMS HealthcareUS OB FOLLOW UP TRANSABDOMINAL APPROACHon 70-99-3948BB OB FOLLOW UP TRANSABDOMINAL APPROACHTITLE OF EXAM: OB Ultrasound: REASON FOR EXAM: Growth COMPARISON: None TECHNIQUE: Grayscale and M-mode Doppler imaging is performed. FINDINGS: heart rate: 150 bpm MARIA E: 11.7 cm (7.7-24.8) BPD: 8.8 cm HC: 31.8 cm AC: 32.7 cm FL: 7.1 cm GA for sonogram: 35.7 wk (33.2-38.1) Hadlock WYATT: 2024 Weight Estimate: Weight: 2896 gm / 6 lbs, 6 oz (2643-7859 gm) [place] Normal: 2844 gm (7796-3544 gm) [place] Wt%: 56% for 36.1 wks [...] electronically signed and approved by the interpreting radiologist.NormalNot AvailableComment on above:Order Comment: US OB SCAN FOR GROWTH Estimated Date of Delivery: 08/02/24 Gestational Age as of 06/08/2024: 33b8bOfyvldobik macro (dipstick) panel (U)on 41-24-7985Vspdjsogq, UANegativeNegative - 4(70) +++ mg/dLNOMS HealthcareBlood, UAPositiveNegative - 50 Erwin/mcLNOMS HealthcareClarity, UAClearNOMS Healthcare Color, UAYellowNOMS HealthcareGlucose, UANegativeNegative - 2000(110) ++++ mg/dL N[facility]S HealthcareInterpretation and review of laboratory resultsAbnormalNOMS HealthcareKetones, UANegativeNegative - 160(16) ++++ mg/dLNOMS Healthcare Leukocytes, UANegativeNegative - 500+++ Kevin/mcLNOMS HealthcareNitrite, UA NegativeNegative - PositiveNOMS HealthcarepH, UA7.55 - 9NOMS HealthcareProtein, UAManyNegative - 2000(20) ++++ mg/dLNOMS HealthcareSpec Grav, UA1.031 - 1.03NOMS HealthcareUrobilinogen, UA1.00.2 - 12 mg/dLNOMS HealthcareNOMS HealthcareCCF FERRITINon 59-26-6428Qmcyxygs [Mass/Vol]5 ng/mLLow8.0 - 252.0 ng/mLNOMS HealthcareInterpretation and review of laboratory resultsAbnoJefferson Abington Hospital CLINISYNCMOAB REGIONAL HOSPITAL HealthcareUrinalysis macro (dipstick) panel (U)on 06-29-2024 Bilirubin, UANegativeNegative - 4(70) +++ mg/dLNOKY HealthcareBlood, UANegative Negative - 50 Erwin/mcLNOKY HealthcareClarity, UAClearNOKY HealthcareColor, UA YellowNOMS HealthcareGlucose, UANegativeNegative - 2000(110) ++++ mg/dLNOKY HealthcareInterpretation and review of laboratory resultsNoJefferson Abington Hospital Ketones, UANegativeNegative - 160(16) ++++ mg/dLNOKY HealthcareLeukocytes, UA NegativeNegative - 500+++ Kevin/mcLNOKY HealthcareNitrite, UANegativeNegative - PositiveNOMS HealthcarepH, UA55 - 9NOMS HealthcareProtein, UAPositiveNegative - 1999(20) ++++ mg/dLNOMS HealthcareSpec Grav, UA1.021 - 1.03NOKY Healthcare Urobilinogen, UA1.00.2 - 12 mg/dLNOKY HealthcareNOMS HealthcareALL CBC WITH AUTO DIFFon 37-26-2923DLWYJPWJL ABSOLUTE JXUH1HRTU HealthcareBasophils/100 WBC (Bld) 0.2 %0.2 - 2.0 %NOMS HealthcareEosinophils/100 WBC (Bld)0.6 %Low0.9 - 7.0 %[facility] HospitalErythrocyte distribution width (RBC) [Ratio]13.5 %11.0 - 15.0 %NOMMercy Hospital SpringfieldHematocrit (Bld) [Volume fraction]27 %Low36.0 - 48.0 %[facility] Hemoglobin (Bld) [Mass/Vol]8.3 g/dLLow12.0 - 16.0 g/dLSaint Luke's East HospitalIMMATURE GRANULOCYTES ABS AUTO0.1HighNOCenterpoint Medical CenterImmature granulocytes/100 WBC (Bld)1 %High0.0 - 0.5 %[facility] HealthcareInterpretation and review of laboratory results AbnormalNOCenterpoint Medical CenterLYMPHOCYTES ABSOLUTE AUTO2.1NOMS [facility] Lymphocytes/100 WBC (Bld)22.1 %20.5 - 60.0 %[facility] HospitalH (RBC) [Entitic mass]25.5 pgLow26.7 - 34.0 pgI-70 Community HospitalHC (RBC) [Mass/Vol]30.7 g/dL29.9 - 35.2 g/dLI-70 Community HospitalV (RBC) [Entitic vol]82.8 fL81.0 - 99.0 fLSaint Luke's East HospitalMONOCYTES ABSOLUTE AUTO0.8NOCenterpoint Medical CenterMonocytes/100 WBC (Bld)8.5 % 1.7 - 12.0 %[facility] HospitalNEUTROPHILS ABSOLUTE AUTO6.4NOCenterpoint Medical Center Neutrophils/100 WBC (Bld)67.6 %43.0 - 75.0 %[facility] HospitalPlatelet mean volume (Bld) [Entitic vol]9.1 fLLow9.5 - 13.5 fLSaint Luke's East HospitalTBH EO #0.1NOMS HealthcareTB VPK125YGGGCenterpoint Medical CenterTB RBC3.26LowNOCenterpoint Medical CenterTB WBC9.5NOCenterpoint Medical CenterCLINISYNCNOzarks Medical CenterUrinalysis macro (dipstick) panel (U)on 58-87-1316Rwhcqslxa, UANegativeNegative - 4(70) +++ mg/dLSaint Luke's East HospitalBlood, UANegativeNegative - 50 Erwin/mcLNOKY HealthcareClarity, UAClearNOKY Healthcare Color, UAYellowNOKY HealthcareGlucose, UANegativeNegative - 2000(110) ++++ mg/dL [facility] HealthcareInterpretation and review of laboratory resultsAbnormalNOKY HealthcareKetones, UANegativeNegative - 160(16) ++++ mg/dLSaint Luke's East Hospital Leukocytes, UANegativeNegative - 500+++ Kevin/mcLNOKY HealthcareNitrite, UA NegativeNegative - PositiveNOKY HealthcarepH, UA6.55 - 9NOKY HealthcareProtein, UATraceNegative - 1999(20) ++++ mg/dLNOMS HealthcareSpec Grav, UA1.0251 - 1.03 NOMS HealthcareUrobilinogen, UA0.20.2 - 12 mg/dLNOKY HealthcareNOKY Healthcare Urinalysis macro (dipstick) panel (U)on 23-25-9741Fvchuryiv, UANegativeNegative - 4(70) +++ mg/dLNOMS HealthcareBlood, UANegativeNegative - 50 Erwin/mcLNOKY HealthcareClarity, UAClearNOMS HealthcareColor, UAYellowNOMS HealthcareGlucose, UANegativeNegative - 1999(110) ++++ mg/dLNOKY HealthcareInterpretation and review of laboratory resultsNormalNOKY HealthcareKetones, UANegativeNegative - 160(16) ++++ mg/dLNOMS HealthcareLeukocytes, UANegativeNegative - 500+++ Kevin/mcL NOMS HealthcareNitrite, UANegativeNegative - PositiveNOMS HealthcarepH, UA65 - 9 NOMS HealthcareProtein, UANegativeNegative - 1999(20) ++++ mg/dLNOMS Healthcare Spec Grav, UA1.0251 - 1.03NOKY HealthcareUrobilinogen, UA0.20.2 - 12 mg/dLNOKY HealthcareNOKY HealthcareMLR HEMOGLOBIN A1Con 35-12-2862Ohzgjzs [Mass/Vol]111 mg/dLNOKY NfbndiqryhLkA9h (Bld) [Mass fraction]5.5 %4.5 - 6.2 %[facility] Comment on above:ADA RECOMMENDED LIMIT 4.0 - 6.0 ADA THERAPEUTIC TARGET < 7.0 ACTION SUGGESTED > 7.0 CLINISYNCNOKY HealthcareUS OB GROWTHon 37-38-3096[place] [address] Ultrasound Report Signed Patient: MARIBEL VELEZ MR#: [id number] : 2000 Acct:[id number] Age/Sex: 23 / F ADM Date: 06/05/24 Loc: [facility] Attending Dr: Eldon Mccracken D.O. Ordering Physician: Eldon Mccracken D.O. Date of Service: 06/05/24 Procedure(s): US OB growth Accession Number(s): [id number] cc: Eldon Mccracken D.O.; Physician,Non-Staff Jeremy The [place] [id number] Patient Name: MARIBEL VELEZ MRN: [id number] date: 2000 Sex: F Assigned Patient Location: [facility] Current Patient Location: LAB Accession/Order Number: [id number] Exam Date: 06/05/2024 10:43 Report Date: 06/05/2024 12:46 At the request of: ELDON MCCRACKEN Procedure: US OB growth EXAMINATION: US OB growth HISTORY: LARGE FOR GESTATIONAL AGE COMPARISON: 03/16/2024 FINDINGS: Heart Rate: 150 bpm Amniotic Fluid Volume: 19.3 cm Number: 1 Position: Cephalic presentation, longitudinal lie BIOMETRY: BPD: 8.45 cm; 34 weeks 0 days; 94.30 % HC: 29.74 cm; 32 weeks 6 days; 45 % AC: 29.43 cm; 33 weeks 3 days; 89.90 % FL: 6.32 cm; 32 weeks 5 days; 64 % EFW: 2234.93 g; 85 %, 4 lbs. 12 oz. FL/AC: 21.47 FL/BPD: 74.79 HC/AC: 1.01 GESTATIONAL AGE: Age by EDC: 31 weeks 5 days WYATT by EDC: 2024 Age by US: 33 weeks 2 days WYATT by US: 2024-07-22 US/US OB growth IMPRESSION: Normal interval growth Electronically authenticated by: AMY WARE Date: 06/05/2024 12:46 Dictated By: Amy Ware M.D. Signed By: 06/05/24 1248 DD/ 1246 TD/TT: Er Medical Technician:ANNAHRadiology, Radiologist, - 06/05/2024 [place] [address] Ultrasound Report Signed Patient: MARIBEL VELEZ MR#: [id number] : 2000 Acct:[id number] Age/Sex: 23 / F ADM Date: 06/05/24 Loc: [facility] Attending Dr: Eldon Mccracken D.O. Ordering Physician: Eldon Mccracken D.O. Date of Service: 06/05/24 Procedure(s): US OB growth Accession Number(s): [id number] cc: Eldon Mccracken D.O.; Physician,Non-Staff Jeremy [place] [address] Patient Name: MARIBEL VELEZ MRN: [facility]:[id number] date: 2000 Sex: F Assigned Patient Location: [facility] Current Patient Location: LAB Accession/Order Number: [id number] Exam Date: 06/05/2024 10:43 Report Date: 06/05/2024 12:46 At the request of: ELDON MCCRACKEN Procedure: US OB growth EXAMINATION: US OB growth HISTORY: LARGE FOR GESTATIONAL AGE COMPARISON: 03/16/2024 FINDINGS: Heart Rate: 150 bpm Amniotic Fluid Volume: 19.3 cm Number: 1 Position: Cephalic presentation, longitudinal lie BIOMETRY: BPD: 8.45 cm; 34 weeks 0 days; 94.30 % HC: 29.74 cm; 32 weeks 6 days; 45 % AC: 29.43 cm; 33 weeks 3 days; 89.90 % FL: 6.32 cm; 32 weeks 5 days; 64 % EFW: 2234.93 g; 85 %, 4 lbs. 12 oz. FL/AC: 21.47 FL/BPD: 74.79 HC/AC: 1.01 GESTATIONAL AGE: Age by EDC: 31 weeks 5 days WYATT by EDC: 2024 Age by US: 33 weeks 2 days WYATT by US: 2024-07-22 US/US OB growth IMPRESSION: Normal interval growth Electronically authenticated by: AMY WARE Date: 06/05/2024 12:46 Dictated By: Amy Ware M.D. Signed By: 06/05/24 1248 DD/ 1246 TD/TT: Er Medical Technician: SHARI HealthcareRadiology Study observation (narrative)SHARI FuUS OB GROWTHOrdered By: Radiologist Radiology on 02-93-7374AKPWSaint Luke's East Hospital Work Phone: Urinalysis macro (dipstick) panel (U)on 05-24-2024 Bilirubin, UANegativeNegative - 4(70) +++ mg/dLNOMS HealthcareBlood, UANegative Negative - 50 Erwin/mcLNOMS HealthcareClarity, UAClearNOMS HealthcareColor, UA YellowNOMS HealthcareGlucose, UANegativeNegative - 1999(110) ++++ mg/dLNOMS HealthcareInterpretation and review of laboratory resultsAbnoJefferson Abington Hospital Ketones, UANegativeNegative - 160(16) ++++ mg/dLNOKY HealthcareLeukocytes, UA NegativeNegative - 500+++ Kevin/mcLNOKY HealthcareNitrite, UANegativeNegative - PositiveNOKY HealthcarepH, UA6.55 - 9NOKY HealthcareProtein, UAManyNegative - 1999(20) ++++ mg/dLNOKY HealthcareSpec Grav, UA1.0251 - 1.03[facility] Urobilinogen, UA1.00.2 - 12 mg/dLSaint Mary's Hospital of Blue Springs HealthcareALL TYPE AND SCREENon 31-34-4214SDE and Rh group Nom (Bld)Blood group A Rh(D) negativeRegional Medical Center ,CLINISYBig South Fork Medical CenterUrinalysis macro (dipstick) panel (U)on 05-08-2024 Bilirubin, UANegativeNegative - 4(70) +++ mg/dLNOMS HealthcareBlood, UANegative Negative - 50 Erwin/mcLNOMS HealthcareClarity, UAClearNOMS HealthcareColor, UA YellowNOKY HealthcareGlucose, UANegativeNegative - 1999(110) ++++ mg/dLMOAB REGIONAL [facility]ITAL HealthcareInterpretation and review of laboratory resultsNoJefferson Abington Hospital Ketones, UANegativeNegative - 160(16) ++++ mg/dLNOKY HealthcareLeukocytes, UA NegativeNegative - 500+++ Kevin/mcLNOKY HealthcareNitrite, UANegativeNegative - PositiveNOKY HealthcarepH, UA65 - 9NOMS HealthcareProtein, UANegativeNegative - 1999(20) ++++ mg/dLNOKY HealthcareSpec Grav, UA1.021 - 1.03NOCenterpoint Medical Center Urobilinogen, UA1.00.2 - 12 mg/dLNOCenterpoint Medical CenterNOKY HealthcareUS OB INCOMPLETE ANATOMYon 59-03-6108R[address] [address] Ultrasound Report Signed Patient: MARIBEL VELEZ MR#: [id number] : 2000 Acct:[id number] Age/Sex: 23 / F ADM Date: 04/28/24 Loc: US Attending Dr: Eldon Mccracken D.O. Ordering Physician: Eldon Mccracken D.O. Date of Service: 04/28/24 Procedure(s): US OB incomplete anatomy Accession Number(s): [id number] cc: Eldon Mccracken D.O.; Physician,Non-Staff Jeremy [address] [address] Patient Name: MARIBEL VELEZ MRN: [facility]:[id number] date: 2000 Sex: F Assigned Patient Location: US Current Patient Location: Accession/Order Number: [id number] Exam Date: 04/28/2024 10:30 Report Date: 04/29/2024 06:21 At the request of: ELDON MCCRACKEN Procedure: US OB incomplete anatomy EXAM: US OB incomplete anatomy HISTORY: Follow Up Ultrasound Of Anatomy COMPARISON: Ultrasound OB anatomy 03/16/2024 TECHNIQUE: Transabdominal ultrasound FINDINGS: Heart rate: 134 bpm Presentation: Cephalic Anatomy: Four-chamber heart and cardiac outflow tracts adequately seen without appreciable abnormality. GA: 26 weeks 2 days WYATT: 2024 US/US OB incomplete anatomy IMPRESSION: 1. Single live intrauterine . 2. Adequate visualization of the cardiac outflow tracts; no appreciable abnormality. Electronically authenticated by: SUGAR CAMARENA Date: 04/29/2024 06:21 Dictated By: Sugar Camarena M.D. Signed By: 04/29/24623 DD/ 0 TD/TT: Er Medical Technician:ANNAHRadiology, Radiologist, - 04/29/[address] [address] Ultrasound Report Signed Patient: MARIBEL VELEZ MR#: [id number] : 2000 Acct:[id number] Age/Sex: 23 / F ADM Date: 04/28/24 Loc: US Attending Dr: Eldon Mccracken D.O. Ordering Physician: Eldon Mccracken D.O. Date of Service: 04/28/24 Procedure(s): US OB incomplete anatomy Accession Number(s): [id number] cc: Eldon Mccracken D.O.; Physician,Non-Staff Jeremy The [address] [address] Patient Name: MARIBEL VELEZ MRN: [id number] date: 2000 Sex: F Assigned Patient Location: US Current Patient Location: Accession/Order Number: [id number] Exam Date: 04/28/2024 10:30 Report Date: 04/29/2024 06:21 At the request of: ELDON MCCRACKEN Procedure: US OB incomplete anatomy EXAM: US OB incomplete anatomy HISTORY: Follow Up Ultrasound Of Anatomy COMPARISON: Ultrasound OB anatomy 03/16/2024 TECHNIQUE: Transabdominal ultrasound FINDINGS: Heart rate: 134 bpm Presentation: Cephalic Anatomy: Four-chamber heart and cardiac outflow tracts adequately seen without appreciable abnormality. GA: 26 weeks 2 days WYATT: 2024 US/US OB incomplete anatomy IMPRESSION: 1. Single live intrauterine . 2. Adequate visualization of the cardiac outflow tracts; no appreciable abnormality. Electronically authenticated by: SUGAR CAMARENA Date: 04/29/2024 06:21 Dictated By: Sugar Camarena M.D. Signed By: 04/29/24623 DD/ 0 TD/TT: Er Medical Technician: SHARI HealthcareRadiology Study observation (narrative)SHARI FuUS OB INCOMPLETE ANATOMYOrdered By: Radiologist Radiology on 99-19-7185[facility] Work Phone: Urinalysis macro (dipstick) panel (U)on 04-17-2024 Bilirubin, UANegativeNegative - 4(70) +++ mg/dLNOMS HealthcareBlood, UANegative Negative - 50 Erwin/mcLNOMS HealthcareClarity, UAClearNOMS HealthcareColor, UA YellowNOMS HealthcareGlucose, UANegativeNegative - 2000(110) ++++ mg/dLNOMS HealthcareInterpretation and review of laboratory resultsNormalNOKY Healthcare Ketones, UANegativeNegative - 160(16) ++++ mg/dLNOMS HealthcareLeukocytes, UA NegativeNegative - 500+++ Kevin/mcLNOMS HealthcareNitrite, UANegativeNegative - PositiveNOMS HealthcarepH, UA65 - 9NOMS HealthcareProtein, UANegativeNegative - 2000(20) ++++ mg/dLNOMS HealthcareSpec Grav, UA1.021 - 1.03N[facility]S Healthcare Urobilinogen, UA0.20.2 - 12 mg/dLNOMS HealthcareNOMS HealthcareNo Panel Informationon 77-08-2506Sibbxriks Study observation (narrative)SHARI [facility] OB ANATOMYon 76-30-2041I[address] [address] Ultrasound Report Signed Patient: MARIBEL VELEZ MR#: [id number] : 2000 Acct:[id number] Age/Sex: 23 / F ADM Date: 03/16/24 Loc: [facility] Attending Dr: Marycarmen Thibodeaux Ordering Physician: Marycarmen Thibodeaux Date of Service: 03/16/24 Procedure(s): US OB anatomy Accession Number(s): [id number] cc: Marycarmen Thibodeaux; Physician,Non-Staff M.D. The [address] [address] Patient Name: MARIBEL VELEZ MRN: [id number] date: 2000 Sex: F Assigned Patient Location: [facility] Current Patient Location: [facility] Accession/Order Number: [id number] Exam Date: 03/16/2024 10:43 Report Date: 03/16/2024 12:13 At the request of: MARYCARMEN THIBODEAUX Procedure: US OB anatomy EXAMINATION: US OB anatomy, US OB cervical length HISTORY: ANATOMY COMPARISON: No relevant comparison available. TECHNIQUE: Transabdominal sonographic examination was performed for obstetrical and evaluation. FINDINGS: Number: 1 Heart Rate: 153 bpm H.B. /min Amniotic Fluid Volume: Subjectively normal position: Cephalic presentation, longitudinal lie Placental Location: Posterior, grade 1. The placental edge is 4.8 cm from the internal cervical os Cervix Length: 4.52 cm , closed Normal anatomy: Lateral ventricles, cerebellum, posterior fossa, nose, lips, orbits, four-chamber heart, diaphragm, stomach, kidneys, abdominal cord insertion, bladder, umbilical arteries, three-vessel cord, spine, extremities Nonvisualization: RVOT, LVOT BIOMETRY: BPD: 4.77 cm; [...] March 14, 2007. Electronically authenticated by: AMY WARE Date: 03/16/2024 12:13 Dictated By: Amy Ware M.D. Signed By: 03/16/24 1216 DD/ 1213 TD/TT: Er Medical Technician:ANNAHRadiology, Radiologist, - 03/16/[address] [address] Ultrasound Report Signed Patient: MARIBEL VELEZ MR#: [id number] : 2000 Acct:[id number] Age/Sex: 23 / F ADM Date: 03/16/24 Loc: [facility] Attending Dr: Marycarmen Thibodeaux Ordering Physician: Marycarmen Thibodeaux Date of Service: 03/16/24 Procedure(s): US OB anatomy Accession Number(s): [id number] cc: Marycarmen Thibodeaux; Physician,Non-Staff Jeremy [address] [address] Patient Name: MARIBEL VELEZ MRN: [id number] date: 2000 Sex: F Assigned Patient Location: [facility] Current Patient Location: [facility] Accession/Order Number: [id number] Exam Date: 03/16/2024 10:43 Report Date: 03/16/2024 12:13 At the request of: MARYCARMEN THIBODEAUX Procedure: US OB anatomy EXAMINATION: US OB anatomy, US OB cervical length HISTORY: ANATOMY COMPARISON: No relevant comparison available. TECHNIQUE: Transabdominal sonographic examination was performed for obstetrical and evaluation. FINDINGS: Number: 1 Heart Rate: 153 bpm H.B. /min Amniotic Fluid Volume: Subjectively normal position: Cephalic presentation, longitudinal lie Placental Location: Posterior, grade 1. The placental edge is 4.8 cm from the internal cervical os Cervix Length: 4.52 cm , closed Normal anatomy: Lateral ventricles, cerebellum, posterior fossa, nose, lips, orbits, four-chamber heart, diaphragm, stomach, kidneys, abdominal cord insertion, bladder, umbilical arteries, three-vessel cord, spine, extremities Nonvisualization: RVOT, LVOT BIOMETRY: BPD: 4.77 cm; [...] March 14, 2007. Electronically authenticated by: AMY WARE Date: 03/16/2024 12:13 Dictated By: Amy Ware M.D. Signed By: 03/16/24 1216 DD/ 1213 TD/TT: Er Medical Technician: SHARI Torres OB ANATOMYOrdered By: Radiologist Radiology on 32-66-5564HPQK [facility] Work Phone: US OB CERVICAL LENGTHon 16-73-2168[place] [address] Ultrasound Report Signed Patient: MARIBEL VELEZ MR#: [id number] : 2000 Acct:[id number] Age/Sex: 23 / F ADM Date: 03/16/24 Loc: [facility] Attending Dr: Marycarmen Thibodeaux Ordering Physician: Marycarmen Thibodeaux Date of Service: 03/16/24 Procedure(s): US OB cervical length Accession Number(s): [id number] cc: Marycarmen Thibodeaux; Physician,Non-Staff [address] [place] [address] Patient Name: MARIBEL VELEZ MRN: [id number] date: 2000 Sex: F Assigned Patient Location: [facility] Current Patient Location: [facility] Accession/Order Number: [id number] Exam Date: 03/16/2024 10:43 Report Date: 03/16/2024 12:13 At the request of: MARYCARMEN THIBODEAUX Procedure: US OB cervical length EXAMINATION: US OB anatomy, US OB cervical length HISTORY: ANATOMY COMPARISON: No relevant comparison available. TECHNIQUE: Transabdominal sonographic examination was performed for obstetrical and evaluation. FINDINGS: Number: 1 Heart Rate: 153 bpm H.B. /min Amniotic Fluid Volume: Subjectively normal position: Cephalic presentation, longitudinal lie Placental Location: Posterior, grade 1. The placental edge is 4.8 cm from the internal cervical os Cervix Length: 4.52 cm , closed Normal anatomy: Lateral ventricles, cerebellum, posterior fossa, nose, lips, orbits, four-chamber heart, diaphragm, stomach, kidneys, abdominal cord insertion, bladder, umbilical arteries, three-vessel cord, spine, extremities Nonvisualization: RVOT, LVOT BIOMETRY: BPD: 4.77 cm; [...] WYATT by current US: 2024-07-31 US/US OB cervical length IMPRESSION: Nonvisualization of the ventricular outflow tracts Otherwise normal anatomy scan Closed cervix measuring 4.5 cm in length *Reference: AIUM Practice Guideline for the performance of Obstetric Ultrasound Examinations, March 14, 2007. Electronically authenticated by: AMY WARE Date: 03/16/2024 12:13 Dictated By: Amy Waer M.D. Signed By: 03/16/24 1215 DD/ 1213 TD/TT: Er Medical Technician:TBHRadiology, Radiologist, MD - 03/16/[address] [address] Ultrasound Report Signed Patient: MARIBEL VELEZ MR#: [id number] : 2000 Acct:[id number] Age/Sex: 23 / F ADM Date: 03/16/24 Loc: [facility] Attending Dr: Marycarmen Thibodeaux Ordering Physician: Marycarmen Thibodeaux Date of Service: 03/16/24 Procedure(s): US OB cervical length Accession Number(s): [id number] cc: Marycarmen Thibodeaux; Physician,Non-Staff MSusana The [address] [address] Patient Name: MARIBEL VELEZ MRN: [id number] date: 2000 Sex: F Assigned Patient Location: [facility] Current Patient Location: [facility] Accession/Order Number: [id number] Exam Date: 03/16/2024 10:43 Report Date: 03/16/2024 12:13 At the request of: MARYCARMEN THIBODEAUX Procedure: US OB cervical length EXAMINATION: US OB anatomy, US OB cervical length HISTORY: ANATOMY COMPARISON: No relevant comparison available. TECHNIQUE: Transabdominal sonographic examination was performed for obstetrical and evaluation. FINDINGS: Number: 1 Heart Rate: 153 bpm H.B. /min Amniotic Fluid Volume: Subjectively normal position: Cephalic presentation, longitudinal lie Placental Location: Posterior, grade 1. The placental edge is 4.8 cm from the internal cervical os Cervix Length: 4.52 cm , closed Normal anatomy: Lateral ventricles, cerebellum, posterior fossa, nose, lips, orbits, four-chamber heart, diaphragm, stomach, kidneys, abdominal cord insertion, bladder, umbilical arteries, three-vessel cord, spine, extremities Nonvisualization: RVOT, LVOT BIOMETRY: BPD: 4.77 cm; [...] WYATT by current US: 2024-07-31 US/US OB cervical length IMPRESSION: Nonvisualization of the ventricular outflow tracts Otherwise normal anatomy scan Closed cervix measuring 4.5 cm in length *Reference: AIUM Practice Guideline for the performance of Obstetric Ultrasound Examinations, March 14, 2007. Electronically authenticated by: AMY WARE Date: 03/16/2024 12:13 Dictated By: Amy Ware M.D. Signed By: 03/16/245 DD/ 12 TD/TT: Er Medical Technician: SHARI Torres OB CERVICAL LENGTHOrdered By: Radiologist Radiology on 44-44-1329JKOQ [facility] Work Phone: Urinalysis macro (dipstick) panel (U)on 03-16-2024 Bilirubin, UANegativeNegative - 4(70) +++ mg/dLNOMS HealthcareBlood, UANegative Negative - 50 Erwin/mcLNOMS HealthcareClarity, UAClearNOMS HealthcareColor, UA YellowNOMS HealthcareGlucose, UANegativeNegative - 2000(110) ++++ mg/dLNOMS HealthcareInterpretation and review of laboratory resultsNormalNOMS Healthcare Ketones, UANegativeNegative - 160(16) ++++ mg/dLNOMS HealthcareLeukocytes, UA NegativeNegative - 500+++ Kevin/mcLNOMS HealthcareNitrite, UANegativeNegative - PositiveNOMS HealthcarepH, UA5.55 - 9NOMS HealthcareProtein, UANegativeNegative - 2000(20) ++++ mg/dLNOMS HealthcareSpec Grav, UA1.0201 - 1.03[facility] Urobilinogen, UA1.00.2 - 12 mg/dLNOMS HealthcareNOMS HealthcareNo Panel InformationOrdered By: Shanice Bustamante on 89-46-2497Wcwyr Strep (POC)[facility] HospitalAFP, SERUM, OPEN SPINA BIFIDAon 94-80-9663CTQ MOM0.63. NOMS HealthcareAFP VALUE26.1 ng/mL.NOMS HealthcareCOMMENT:Comment.NOMS HealthcareComment on above:So Carcamo, Ph.D., [facility] Director References: Available Upon Request. Multiples Of Median Cutoffs For AFP Elevations Barajas 2.5 Black 2.8 IDD 2.0 Twins 4.5 Abbreviation Definitions IDD - Insulin Dep Diabetes OSBR - Open Spina Bifida Risk For further inquiries contact [employer] at [phone]. This test was developed and its performance characteristics determined by [employer]. It has not been cleared or approved by the Food and Drug Administration. Performed at: [facility] [employer] [address] [place], [place] [address] Tap Puller: Marci Lewis [facility], Phone: [phone] GEST. AGE ON COLLECTION DATE17.6. weeksNOMS HealthcareGESTAT. AGE BASED ONLMP. NOMS HealthcareComment on above:Recalculations are not recommended when gestational dating by LMP and ultrasound are within 10 days. INSULIN DEP DIABETESNo.NOMS HealthcareINTERPRETATIONComment.[facility] Comment on above:Interpretation: Screen Negative This result is screen negative for [...] Customer Services to discuss available options. The [employer] recommends amniocentesis be offered to women age 35 and older. MATERNAL AGE AT EDD21.9. yrNOKY HealthcareMULTIPLE GESTATIONNo.[facility] OSBR RISK 1 [id number].[facility] HospitalRACECaucasian.[facility] HospitalRESULTSReport. [facility] HospitalTEST RESULTS:Negative.[facility] HospitalWziigpgmrkMVRNWG824. lbsNOKY HealthcarePREGNANCY N N LMP [id number] 4 17 N 1 Y 147 N N N N N White/ CLINISYNCNOKY HealthcareURETHRITIS/DISCHARGE PLUS VAGINITIS (HTRX)on 02-19-2024 ATOPOBIUM NZKHMWL12.349AbnormalNOMS HealthcareATOPOBIUM VAGINAEDetectedAbnormal [facility] HealthcareBVAB 2,3 (BACTERIAL VAGINOSIS ASSOCIATED BACTERIA 2, 3); MOBILUNCUS SPP0.000NOKY HealthcareBVAB 2,3 (BACTERIAL VAGINOSIS ASSOCIATED BACTERIA 2, 3); MOBILUNCUS SPPNot detectedNOMS HealthcareCANDIDA ALBICANS, PARAPSILOSIS, TROPICALIS0.000NOMS HealthcareCANDIDA ALBICANS, PARAPSILOSIS, TROPICALISNot detectedNOMS HealthcareCANDIDA GLABRATA0.000NOMS HealthcareCANDIDA GLABRATANot detectedNOMS HealthcareCANDIDA KRUSEI0.000NOMS HealthcareCANDIDA KRUSEINot detectedNOMS HealthcareCHLAMYDIA TRACHOMATIS0.000[facility] CHLAMYDIA TRACHOMATISNot detectedNOMS HealthcareERMB, C; MEFA18.780AbnormalNOMS HealthcareERMB, C; MEFADetectedAbnormalNOKY HealthcareGARDNERELLA VAGINALIS 16.918AbnormalNOMS HealthcareGARDNERELLA VAGINALISDetectedAbnoalMO[facility] REG[facility] HealthcareInterpretation and review of laboratory resultsAbnormalNOMS Healthcare MEGASPHAERA (TYPES 1, 2)0.000NOMS HealthcareMEGASPHAERA (TYPES 1, 2)Not detected [facility] HealthcareMYCOPLASMA GENITALIUM0.000NOMS HealthcareMYCOPLASMA GENITALIUMNot detectedNOMS HealthcareNEISSERIA GONORRHOEAE0.000NOMS HealthcareNEISSERIA GONORRHOEAENot detectedNOMS HealthcareTET B, TET M18.993AbnormalN[facility]S Healthcare TET B, TET MDetectedAbnormalNOMS HealthcareTRICHOMONAS VAGINALIS0.000NOMS HealthcareTRICHOMONAS VAGINALISNot detectedNOMS HealthcareNOMS Healthcare Urinalysis macro (dipstick) panel (U)on 01-83-4392Cyphmmqku, UANegativeNegative - 4(70) +++ mg/dLNOMS HealthcareBlood, UAPositiveNegative - 50 Erwin/mcLNOMS HealthcareComment on above:trace-intactClarity, UAClearNOMS HealthcareColor, UA YellowNOMS HealthcareGlucose, UANegativeNegative - 2000(110) ++++ mg/dLNOKY HealthcareInterpretation and review of laboratory resultsAbnormalNOKY Healthcare Ketones, UANegativeNegative - 160(16) ++++ mg/dLNOKY HealthcareLeukocytes, UA PositiveNegative - 500+++ Kevin/mcLNOMS HealthcareComment on above:moderate Nitrite, UANegativeNegative - PositiveNOMS HealthcarepH, UA7.05 - 9NOMS HealthcareProtein, UANegativeNegative - 2000(20) ++++ mg/dLNOMS HealthcareSpec Grav, UA1.0301 - 1.03NOMS HealthcareUrobilinogen, UA0.20.2 - 12 mg/dLNOMS HealthcareNOMS HealthcareUS OB TRANSVAGINALon 97-36-1939[place] [address] Ultrasound Report Signed Patient: MARIBEL VELEZ MR#: [id number] : 2000 Acct:[id number] Age/Sex: 23 / F ADM Date: 12/31/23 Loc: [facility] Attending Dr: Eldon Mccracken D.O. Ordering Physician: Eldon Mccracken D.O. Date of Service: 12/31/23 Procedure(s): US OB transvaginal Accession Number(s): [id number] cc: Eldon Mccracken D.O.; Physician,Non-Staff Jeremy The [address] [address] Patient Name: MARIBEL VELEZ MRN: [id number] date: 2000 Sex: F Assigned Patient Location: [facility] Current Patient Location: [facility] Accession/Order Number: [id number] Exam Date: 12/31/2023 10:09 Report Date: 12/31/2023 12:09 At the request of: ELDON MCCRACKEN Procedure: US OB transvaginal EXAMINATION: US [...] live intrauterine . Electronically authenticated by: SUGAR CAMARENA Date: 12/31/2023 12:09 Dictated By: Sugar Camarena M.D. Signed By: 12/31/23 1212 DD/ 1209 TD/TT: Er Medical Technician:CHRISTOPHERadiology, Radiologist, MD - 12/31/[address] [address] Ultrasound Report Signed Patient: MARIBEL VELEZ MR#: [id number] : 2000 Acct:[id number] Age/Sex: 23 / F ADM Date: 12/31/23 Loc: [facility] Attending Dr: Eldon Kaykay D.O. Ordering Physician: Eldon Mccracken D.O. Date of Service: 12/31/23 Procedure(s): US OB transvaginal Accession Number(s): [id number] cc: Eldon Mccracken D.O.; Physician,Non-Staff Jeremy [place] [id number] Patient Name: MARIBEL VELEZ MRN: [facility]:[id number] date: 2000 Sex: F Assigned Patient Location: [facility] Current Patient Location: [facility] Accession/Order Number: [id number] Exam Date: 12/31/2023 10:09 Report Date: 12/31/2023 12:09 At the request of: ELDON MCCRACKEN Procedure: US OB transvaginal EXAMINATION: US [...] live intrauterine . Electronically authenticated by: SUGAR CAMARENA Date: 12/31/2023 12:09 Dictated By: Sugar Camarena M.D. Signed By: 12/31/23 1212 DD/ 1209 TD/TT: Er Medical Technician: SHARI HealthcareRadiology Study observation (narrative)[facility] Healthcare OB TRANSVAGINALOrdered By: Radiologist Radiology on 72-14-2061[facility] Work Phone: cULTURE URINEon 04-06-8552OAXSYIZ URINEIsolate 1 Streptococcus agalactiae 25,000 cfu/ml of ORGANISM 1 Streptococcus agalactiae ANTIBIOTIC M.I.C RX STATUS Benzylpenicillin <=0.06 S F Ampicillin <=0.25 S F Cefotaxime <=0.12 S F Ceftriaxone <=0.12 S F Levofloxacin 0.5 S F Inducible Clindamycin Resistance Neg NEG F Erythromycin >=8 R F Clindamycin >=1 R F Linezolid <=2 S F Vancomycin 0.5 S F Tetracycline >=16 R FNormalBerger HospitalComment on above:Performed By: #### URCX #### [facility] [address] [place] [address] Dr. Venancio Plummer URINE PROFILEon 52-83-0841Zzkpquino Ql (U)NegativeNormal NEGATIVEBerger HospitalComment on above:Performed By: #### RADHA CABRERA, ERUR #### [facility] [address] [place] [address] Dr. Venancio SorianoClarity (U)CLEARNormalCLEARBerger HospitalComment on above: Performed By: #### RADHA CABRERA, ERUR #### [facility] [address] [place] [address] Dr. Venancio Woo (U)LT. YELLOWNormalYELLOWBerger HospitalComment on above:Performed By: #### RADHA CABRERA, ERUR #### [facility] [address] [place] [address] Dr. Venancio Haines micrscopic examination will be performed if indicated. NormalBerger HospitalComment on above:Performed By: #### MCKENZIE CABRERAU, ERUR #### [facility] [address] [place] [address] Dr. Venancio SorianoGlucose Ql (U)NegativeNormalNEGATIVEBerger HospitalComment on above:Performed By: #### MCKENZIE CABRERAU, ERUR #### [facility] [address] [place] [address] Dr. Venancio SorianoHemoglobin Ql (U)TRACE-INTACTAbnormalNEGATIVEBerger HospitalComment on above:Performed By: #### MCKENZIE CABRERAU, ERUR #### [facility] [address] [address] [address] Venancio Li Ql (U)NegativeNormalNEGATIVEThe [facility] ToledoComment on above:Performed By: #### RADHA CABRERA, ERUR #### [facility] [address] [place] [address] Dr. Venancio HenriquezOCYTESSMALLAbnormalNEGATIVEThe [facility] ToledoComment on above:Performed By: #### RADHA CABRERA, ERUR #### [facility] [address] [place] [address] Dr. Venancio Julian Ql (U)NegativeNormalNEGATIVEThe [facility] ToledoComment on above:Performed By: #### RADHA CABRERA, ERUR #### [facility] [address] [place] [address] Dr. Venancio SorianopH (U)6.0 [pH]Normal5-9The [facility] ToledoComment on above: Performed By: #### RADHA CABRERA, ERUR #### [facility] [address] [place] [address] Dr. Venancio SorianoSPEC GRAVITY1.796Ydsnaq7.005-<=1.025The [facility] ToledoComment on above:Performed By: #### RADHA CABRERA, ERUR #### [facility] [address] [place] [address] Dr. Venancio SorianoUA PROTEINNegativeNormalNEGATIVE/ TRACEThe [facility] Comment on above:Performed By: #### RADHA CABRERA, ERUR #### [facility] [address] [place] [address] Dr. Venancio Collazo MICRO INDINDICATEDNormalThe [facility] ToledoComment on above: Performed By: #### RADHA CABRERA, ERUR #### [facility] [address] [place] [address] Dr. Venancio Moiseinogen Qn (U)0.2 {Erick'U}/dLNormal0.2 - 1.0The [facility] Diego HospitalComment on above:Performed By: #### MCKENZIE CABRERAU, ERUR #### [facility] [address] [address] [address] Venancio Colon URon 57-41-9699LICETOXRO, QUALNegativeNormalNEGATIVEThe [facility] ToledoComment on above:Performed By: #### UMICRO, PREGU, ERUR #### [facility] [address] [address] [address] Venancio Shay MICROSCOPIC ONLYon 56-00-0382YNTOAGUFRZCFULkphxvzhCXVK SEEN [facility] HospitalComformerly [facility] on above:Performed By: #### UMICRO, PREGU, ERUR #### [facility] [address] [place] [address] Dr. Venancio Phillips identified Cx Nom (U)INDICATEDMetropolitan Saint Louis Psychiatric CenteralThMagruder Memorial HospitalComformerly [facility] on above:Performed By: #### UMICRO, PREGU, ERUR #### [facility] [address] [place] [address] Dr. Venancio Lynn SEENNormalNONE SEENOhioHealth Riverside Methodist Hospital on above:Performed By: #### UMICRO, PREGU, ERUR #### [facility] [address] [place] [address] Dr. Venancio Millerystals LM Nom (Urine sed)NONE SEENNormalNONE SEENOhioHealth Riverside Methodist Hospital on above:Performed By: #### UMICRO, PREGU, ERUR #### [facility] [address] [place] [address] Dr. Craft ChangEpithelial cells LM Ql (Urine sed)RARENormalNONE SEEN /RAREThe [facility] ToledoComformerly [facility] on above:Performed By: #### UMICRO, PREGU, ERUR #### [facility] [address] [place] [address] Dr. Venancio McfarlandCOUSNONE SEENNormalNONE SEENOhioHealth Riverside Methodist Hospital on above:Performed By: #### UMICRO, PREGU, ERUR #### [facility] [address] [place] [address] Dr. Venancio TrinhNlszxWNJ4-6Bvvthq7-6Mvl [facility]vue HospitalComment on above:Performed By: #### MCKENZIE CABRERAU, ERUR #### [facility] [address] [place], [place] [address] Dr. Venancio SorianoWBC5-10AbnormalNONE SEENBerger HospitalComment on above: Performed By: #### MCKENZIE CABRERAU, ERUR #### [facility] [address] [place], [place] [address] Dr. Venancio Mo Summary.on 15-50-4670Nlkhct Summary. CD:[id number]:[id number]+PGhlYWQ+VR6HGISiB60xwNGudY4BA7cAAB1YHANRNZBAVQ7ELR3nm GI2FXuoP0HsfhIs [file] YXBz (more content not included)...NormalOhio State University Wexner Medical CenterAuto Diffon 66-62-6143Jogggwfhj/100 WBC (Bld)0.9 %Normal0.0-2.0[facility] Comment on above:Order Comment: Order Added by Discern Expert.Performed By: #### [id number], [id number], [id number], [id number], [id number] ####[facility] [address] [place], [place] [address]Xjdjgisav/Leukocytes Auto (Bld) [Pure # fraction]0.1 E9/LNormal0.0-0.2FSelect Medical Cleveland Clinic Rehabilitation Hospital, BeachwoodComment on above: Order Comment: Order Added by Discern Expert.Performed By: #### [id number], [id number], [id number], [id number], [id number] ####[facility] Lab [address] [place], [place] [address]Ddxsdkwcert/100 WBC (Bld)0.6 %Normal 0.0-8.0[facility]xner Medical CenterComment on above:Order Comment: Order Added by Discern Expert.Performed By: #### 0855081, 4640408, 33798509, 1887436, [id number] ####[facility] [address] [place] [address] Eosinophils/Leukocytes Auto (Bld) [Pure # fraction]0.0 E9/LNormal0.0-0.5FSelect Medical Cleveland Clinic Rehabilitation Hospital, BeachwoodComment on above:Order Comment: Order Added by Discern Expert.Performed By: #### 6500258, 9343512, 12263491, 4323952, [id number] ####[address] [address] Lymphocytes/100 WBC (Bld)46.4 %Wwpnmr72.0-50.0[facility] Medical CenterComment on above:Order Comment: Order Added by Discern Expert.Performed By: #### 5863476, 1333652, 75092198, 8672364, [id number] ####[address] [address]Ovrolfmfmvn/Leukocytes Auto (Bld) [Pure # fraction]3.1 E9/LNormal1.0-4.0[facility] Medical CenterComment on above:Order Comment: Order Added by Discern Expert.Performed By: #### 0002154, 7975763, 95677191, 2896767, [id number] ####[facility] Lab [address] [place] [address]Heyyhagqi/100 WBC (Bld)8.2 %Normal 4.0-14.0[facility] Medical CenterComment on above:Order Comment: Order Added by Discern Expert.Performed By: #### 5806453, 7740107, 71997707, 7735105, [id number] ####[address] [address]Ohijeingt/Leukocytes Auto (Bld) [Pure # fraction]0.6 E9/LNormal0.2-1.0 [facility] Medical CenterComment on above:Order Comment: Order Added by Discern Expert.Performed By: #### 4393494, 8188015, 83761622, 8716452, 06995593 ####[address] [address] Neutrophils/100 WBC (Bld)43.9 %Eemuao62.0-75.0[facility] Medical CenterComment on above:Order Comment: Order Added by Discern Expert.Performed By: #### 0339852, 9221739, 77358570, 9377631, [id number] ####[address] [place], [place] [address]Sqzmqobhojj/Leukocytes Auto (Bld) [Pure # fraction]3.0 E9/LNormal2.0-7.5FSelect Medical Cleveland Clinic Rehabilitation Hospital, BeachwoodComment on above:Order Comment: Order Added by Discern Expert.Performed By: #### [id number], 8839033, 52510629, 0548414, [id number] ####[facility] [address] [place] [address] 180[address]CJ Draw & Holdon 18-99-0393FK D&HSample drawn for Blood BaNLima Memorial HospitalComment on above:Performed By: #### 9886775, 7191600, 31362404, 9411944, 14975663 ####[address] [address]JAZ w/ Auto Diffon 02-13-2022 Erythrocyte distribution width (RBC) [Ratio]13.3 %Osdoff33.9-14.2FSelect Medical Cleveland Clinic Rehabilitation Hospital, BeachwoodComment on above:Performed By: #### 2532620, 4684432, 78788584, 8892018, 71699230 ####[address] [address]Pdtoxcraho (Bld) [Volume fraction]34.1 %Qmgyrw61.0-46.0 [facility] CenterComment on above:Performed By: #### 9975235, 0730392, 10236722, 6525508, 62205448 ####[address] [address]Kvyhywcqzj (Bld) [Mass/Vol]11.7 g/dLLow12.0-16.0 [facility] CenterComment on above:Performed By: #### 0118964, 1343774, 35708625, 9500477, 12661774 ####[facility] [address] [place] [address]JFK (RBC) [Entitic mass]29.9 blVgjmcx11.0-34.0 [facility] CenterComment on above:Performed By: #### 4372550, 9613587, 61364918, 4840750, 40423589 ####[address] [address]PPQZ (RBC) [Mass/Vol]34.4 g/bDYkmxtz47.4-36.0[facility] CenterComment on above:Performed By: #### 2312117, 3980321, 12807307, 9847376, 99882534 ####[address] [address]HYL (RBC) [Entitic vol]86.8 mTJdnvty74.0-100.0 [facility] CenterComment on above:Performed By: #### 0888425, 1139293, 82916933, 3289515, 60891155 ####[address] [address]Epzhcynf mean volume (Bld) [Entitic vol]7.9 fL Normal6.4-10.8[facility] CenterComment on above:Performed By: #### 6334116, 7020727, 62081381, 5089218, 88453398 ####[address] [address]Djauketph (Bld) [#/Vol]329.0 E9/L Wulqgs986.0-500.0[facility] CenterComment on above:Performed By: #### 7223042, 1368676, 90940567, 9211976, 18424979 ####[address] [address]OTE (Bld) [#/Vol]3.9 E12/LLow4.3-5.9 [facility] CenterComment on above:Performed By: #### 0066173, 6418690, 92682740, 8886294, 84807436 ####[facility] [address] [place], [place] [address]XOA corrected for nucl RBC Auto (Bld) [#/Vol]6.7 E9/LNormal4.0-11.0[facility] CenterComment on above:Performed By: #### 3463407, 2779473, 89591828, 4731423, 02797635 ####[facility] [address] [place], [place] [address]YPEJNATBHFahqnwr By: SYSTEM SYSTEM on 13-34-7871Deywdsj [Mass/Vol]4.3 g/dLNormal3.3 - 5.0 gm/dLFTMC Remisol Albumin/Globulin [Mass ratio]1.3 {ratio}Normal1.1 - 2.2[facility] RemisolALP [Catalytic activity/Vol]55 [iU]/pCkvpci99 - 98 Int._Unit/LFTMC RemisolALT No additional P-5'-P [Catalytic activity/Vol]12 [iU]/dNormal6 - 46 Int._Unit/LFTMC RemisolAnion gap [Moles/Vol]10 mmol/LNormal6 - 16 mEq/LFTMC RemisolAST [Catalytic activity/Vol]15 [iU]/dNormal5 - 43 Int._Unit/LFTMC RemisolBilirubin [Mass/Vol]0.4 mg/dLNormal0.0 - 1.1 mg/dLFTMC RemisolCalcium [Mass/Vol]9.2 mg/dL Normal8.9 - 11.1 mg/dLFTMC RemisolChloride [Moles/Vol]107 mmol/RGcrzcl356 - 111 mmol/LFTMC RemisolCO2 [Moles/Vol]23 mmol/GLfviqw85 - 31 mmol/LFTMC Remisol Creatinine [Mass/Vol]0.4 mg/dLLow0.5 - 1.3 mg/dLFT RemisolGFR/1.73 sq M.predicted among blacks MDRD (S/P/Bld) [Vol rate/Area]mL/min/1.73 j0Yonzhg >=59mL/min/1.73 m2FT Chem SGFR/1.73 sq M.predicted among non-blacks MDRD (S/P/Bld) [Vol rate/Area]mL/min/1.73 r3Ietucy>=59mL/min/1.73 m2[facility] Chem S Globulin (S) [Mass/Vol]3.2 g/dLNormal1.4 - 4.0 gm/dLJIM [facility] RemisolGlucose [Mass/Vol]87 mg/pRWcgpvo48 - 199 mg/dLJIM [facility] RemisolPotassium [Moles/Vol]3.8 mmol/LNormal3.5 - 5.3 mmol/LFTMC RemisolProtein [Mass/Vol]7.5 g/dLNormal6.0 - 7.8 gm/dLJIM [facility] RemisolSodium [Moles/Vol]136 mmol/MPehwrd712 - 145 mmol/LFTMC RemisolUrea nitrogen [Mass/Vol]14 mg/dLNormal5 - 21 mg/dLJ[facility] RemisolUrea nitrogen/Creatinine [Mass ratio]35 mg/alJogy95 - 20[facility] RemisolCMPon 02-13-2022 Albumin [Mass/Vol]4.3 g/dLNormal3.3-5.0[facility] CenterComment on above:Performed By: #### 9811745, 0896749, 30269830, 4340804, 98431636 ####[facility] [address] [place] [address] Albumin/Globulin (S) [Mass conc ratio]1.2Gvfypk7.1-2.2Fisher Holy Cross HospitalComment on above:Performed By: #### 4688138, 8583206, 62251046, 6145971, 64426406 ####[facility] [address] [place], [place] [address]AIN [Catalytic activity/Vol]55 Int._Unit/ETgovhv66-50IztcfjOhio State University Wexner Medical CenterComment on above:Performed By: #### 2607992, 2410106, 34937804, 5677881, 11256247 ####[facility] [address] [place], [place] [address]CMJ No additional P-5'-P [Catalytic activity/Vol]12 Int._Unit/LNormal6-46 [facility] CenterComment on above:Performed By: #### 7522420, 3901380, 37219605, 5952181, 38699793 ####[facility] [address] [place], [place] [address]PAK [Catalytic activity/Vol]15 Int._Unit/LNormal 5-43[facility] CenterComment on above:Performed By: #### 1460588, 7018148, 30996708, 0512959, 72363424 ####[facility] [address] [place], [place] [address]Blasiavkf [Mass/Vol]0.4 mg/dLNormal 0.0-1.1FSelect Medical Cleveland Clinic Rehabilitation Hospital, BeachwoodComment on above:Performed By: #### 7316054, 1362947, 86257943, 9484992, 61626767 ####[facility] [address] [place], [place] [address]Kioicttdri [Mass/Vol]0.4 mg/dLLow0.5-1.3 [facility] CenterComment on above:Performed By: #### 8667436, 0411922, 91183238, 1688992, 73090274 ####[facility] [address] [place], [place] [address]Avhdyomh (S) [Mass/Vol]3.2 g/dLNormal1.4-4.0[facility] CenterComment on above:Performed By: #### 7461024, 2426660, 85356747, 3799377, 45233658 ####[facility] [address] [place], [place] [address]Jhhqbak [Mass/Vol]7.5 g/dLNormal6.0-7.8[facility] CenterComment on above:Performed By: #### 7728479, 4323653, 84537593, 8724098, 24264685 ####[facility] [address] [place] [address]Bzqr nitrogen [Mass/Vol]14 mg/dLNormal5-21[facility] CenterComment on above:Performed By: #### 1592844, 8922105, 31563207, 6688674, 59555328 ####[facility] Jjpsqzxaaa[address] Avon AveNhospital for special carek, [place] [address]Bfbs nitrogen/Creatinine [Mass ratio]35 No QcxmkXnoa02-31 [facility] CenterComment on above:Performed By: #### 1530924, 1969303, 81356742, 7720332, 13237396 ####[facility] [address] [place], [place] [address]Mpnhg gap [Moles/Vol]10 mmol/LNormal6-16[facility] CenterComment on above:Performed By: #### 7886441, 5127550, 11160133, 3168638, 19093194 ####[facility] [address] [place], [place] [address]Vdhnsap [Mass/Vol]9.2 mg/dLNormal8.9-11.1FSelect Medical Cleveland Clinic Rehabilitation Hospital, BeachwoodComment on above:Performed By: #### 9093670, 9677245, 70443698, 3179765, 35633044 ####[facility] [address] [place], [place] [address]Ukwoeruk [Moles/Vol]107 mmol/TDisxly302-616UaliheOhio State University Wexner Medical CenterComment on above:Performed By: #### 8411522, 8869430, 36790206, 4260732, 76288416 ####[facility] [address] [place], [place] [address]PR5 [Moles/Vol]23 mmol/VBgmiqo70-39BjartqOhio State University Wexner Medical CenterComment on above:Performed By: #### 8446100, 3415129, 01333387, 6271727, 33717678 ####[facility] [address] [place], [place] [address]Ngquakx [Mass/Vol]87 mg/uZTlsuhk40-728Rlzozl Ralls Medical CenterComment on above:Result Comment: If this glucose result represents a fasting glucose, interpretation should refer tothe following reference range: 55-99 mg/dLPerformed By: #### 1716254, 5402453, 88578125, 7464074, 47368612 ####[facility] [address] [place] [address] Potassium [Moles/Vol]3.8 mmol/LNormal3.5-5.3FSelect Medical Cleveland Clinic Rehabilitation Hospital, BeachwoodComment on above:Performed By: #### 6355938, 5563212, 50388275, 2709198, 75829738 ####[facility] [address] [place] [address] Sodium [Moles/Vol]136 mmol/JFbgyhz072-924LcutxcOhio State University Wexner Medical CenterComment on above:Performed By: #### 4608399, 6129201, 91959414, 8929912, 72269697 ####[facility] [address] [place] [address] Consent for Treatmenton 18-57-2944Eapzvoq for Treatment [id number]#1.00CD:[address] [place], [place] [address]Discharge Instructionson 74-51-6249Ugovghxce Instructions [id number]#1.00CD:127[facility] Clinical Summaryon 00-31-6424IS Clinical Summary [place] [id number] ED Clinical Summary Person Information Name: MARIBEL VELEZ/[facility] Age: 21 Years : 2000 Sex: Female Language: Albanian PCP: CAITIE MARSHALL CNP Marital Status: Single [...] 02/13/2022 07:28:36 02/13/2022 07:28:36 02/13/2022 07:28:36 ADDRESS: [facility] [address] [facility] [id number] PHYS DOC NOTES: Addendum by Kevin Santoro DO on February 13, 2022 07:22:06 EDT MEDICAL INFORMATION: Prescriptions Given: New Medications [id number], [address], [place] [id number], [phone] pramoxine topical (ProctoFoam 1% Foam) apply By rectum 2 times a day for 7 Days. Refills: 0. Medications to Continue with No Changes Other Medications ethinyl estradiol-norgestimate (Sprintec oral tablet) Ib By Mouth every day. ibuprofen (ibuprofen 600 mg Tab) 1 Tablets By Mouth every 6 hours as needed as needed for pain. PATIENT EDUCATION INFORMATION: Instructions: Rectal Bleeding, Acbg-re-Dydl; Hemorrhoids, Ttob-fh-Oujm Follow up: With: Address: When: [facility], [address] [place] [address] Business (1) In 3 days 02/16/2022 With: Address: When: CAITIE MARSHALL In 3 days DIAGNOSIS: Acute hemorrhoidNormalFisher Ralls Medical CenterED Note-Physicianon 02-13-2022 ED Note-PhysicianBasic Information Time Seen: Ana Braxton DO 02/13/2022 06:19 Chief Complaint Blood coming out of my butt. since 0200 while at work. Denies clots. Bilateral flank pain shortlyafter bleeding started. Has seen PCP for same [...] the toilet bowl. Patient had seen a GIdoctor in the past however he and she never established with another GI doctor. Denies any fevers, chills, dizziness or lightheadedness. Does note some bilateral flank pain that started after the rectal bleeding started. Review of Systems General: Denied fever, chills, weight loss HEENT: Denied Congestion, rhinorrhea, sore throat Cardiac: Denied Chest pain, palpitations, dizziness/lightheadedness Respiratory: Denied Dyspnea, cough Abdominal: Denied abdominal [...] is obtained. Patient signed out to Dr. Yvan blakelylabalpa. Assessment/Plan Acute hemorrhoid (K64.9: Unspecified hemorrhoids) Orders: [...] symptoms should change or worsen. Diagnosis: Rectal bleedingNoalOhio State University Wexner Medical CenterComment on above: Result Comment: Electronically Signed By: Kevin Santoro DO\.br\Date and Time Signed: 02/13/22 07:23EDTED Patient Education Noteon 08-73-3162JM Patient Education NoteGastroenterology Rectal Bleeding Rectal bleeding is when blood [...] 02/10/2012 Document Revised: 05/13/2018 Document Reviewed: 07/26/2016 [email or web address] Patient Education ? 2020 [employer]. Hemorrhoids Hemorrhoids are swollen veins that may [...] using a flexible tube with a camera onthe end (sigmoidoscopy or colonoscopy). How is this [...] times a day. General instructions ? Take tcda-bqz-afajpwl and prescription medicines only (more content not included)...[facility] Patient Summaryon 86-66-8620ST Patient Summary [address] [address] Patient Discharge Instructions Person Information Name: MARIBEL VELEZ Age: 21 Years Arrival Date: 02/13/2022 06:16:54 Discharge Diagnosis: Acute hemorrhoid Primary Care Physician: CAITIE MARSHALL CNP Provider Information Primary Provider: Ana Braxton DO [employer] Owner Operator:None The exam and treatment you received in the Emergency Department were for an urgent problem and are not intended as complete care. It is important that you follow up with a doctor, nurse practitioner,or physician?s assistant professor of life sciences for ongoing care. If your symptoms become worse or you do not improve as expected and you are unable to reach your usual health care provider, you should return to the Emergency Department. We are available 24 hours a day. MARIBEL VELEZ has been given the following list of patient education materials, prescriptions and follow-up instructions: Follow-up Instructions: With: Address: When: [facility], [address] [place] [address] [place] [address] [facility] () In 3 days 02/16/2022 With: Address: When: CAITIE MARSHALL In 3 days In the event that this physician does not participate in your insurance network, please consult with your insurance company to find a nearby participating provider. Patient Education Materials: Rectal Bleeding, Cpgg-ct-Hcox; Hemorrhoids, Bojy-dt-Ksxi A MESSAGE TO ALL PATIENTS REGARDING OPIOIDS PRESCRIPTION OPIOIDS: WHAT YOU NEED TO KNOW Prescription opioids can be used to help relieve fkncdsff-gt-qkwlbk pain and are often prescribed following a [...] and have fewer risks and side effects. Optionsmay include: ? Pain relievers such as acetaminophen, [...] unused prescription opioids: Find your community drug take- back program or yourpharmacy mail-back program, or flush them down the toilet, following guidance from the Food and Drug Administration (www.fda.gov/Drugs/ResourcesForYou). ? Visit www.cdc.gov/drugoverdose to learn about the risks of opioids abuse and overdose. ? If you believe you may be struggling with addiction, tell your health care professi (more contentnot included)...[facility] HEMATOLOGYOrdered By: [employer] SYSTEM on 32-08-0711Eqhvvkjsw/100 WBC (Bld)0.9 % Normal0.0 - 2.0 %[facility] HemeAutoSSBasophils/Leukocytes Auto (Bld) [Pure # fraction]0.1 E9/LNormal0.0 - 0.2 E9/LFTMC HemeAutoSSEosinophils/100 WBC (Bld)0.6 %Normal0.0 - 8.0 %[facility] HemeAutoSSEosinophils/Leukocytes Auto (Bld) [Pure # fraction]0.0 E9/LNormal0.0 - 0.5 E9/LFTMC HemeAutoSSLymphocytes/100 WBC (Bld) 46.4 %Ksgcdn00.0 - 50.0 %[facility] HemeAutoSSLymphocytes/Leukocytes Auto (Bld) [Pure # fraction]3.1 E9/LNormal1.0 - 4.0 E9/LFTMC HemeAutoSSMonocytes/100 WBC (Bld)8.2 %Normal4.0 - 14.0 %[facility] HemeAutoSSMonocytes/Leukocytes Auto (Bld) [Pure # fraction]0.6 E9/LNormal0.2 - 1.0 E9/LFTMC HemeAutoSSNeutrophils/100 WBC (Bld) 43.9 %Crsjza56.0 - 75.0 %[facility] HemeAutoSSNeutrophils/Leukocytes Auto (Bld) [Pure # fraction]3.0 E9/LNormal2.0 - 7.5 E9/LFTMC HemeAutoSSHEMATOLOGYOrdered By: Meredith Martini on 09-12-0940Jhzsjneoikm distribution width (RBC) [Ratio]13.3 % Gvlvho07.9 - 14.2 %[facility] HemeAutoSSHematocrit (Bld) [Volume fraction]34.1 %Normal 34.0 - 46.0 %[facility] HemeAutoSSHemoglobin (Bld) [Mass/Vol]11.7 g/dLLow12.0 - 16.0 gm/dLFT HemeAutoSSMCH (RBC) [Entitic mass]29.9 ijVcxums46.0 - 34.0 pgFTMC HemeAutoSSMCHC (RBC) [Mass/Vol]34.4 g/wTBvkkqp28.4 - 36.0 gm/dLFTMC HemeAutoSS MCV (RBC) [Entitic vol]86.8 rZMqysnl10.0 - 100.0 fLFT HemeAutoSSPlatelet mean volume (Bld) [Entitic vol]7.9 fLNormal6.4 - 10.8 fLFTMC HemeAutoSSPlatelets (Bld) [#/Vol]329.0 E9/ZBvmazq581.0 - 500.0 E9/LFTMC HemeAutoSSRBC (Bld) [#/Vol] 3.9 E12/LLow4.3 - 5.9 E12/LFC HemeAutoSSWBC corrected for nucl RBC Auto (Bld) [#/Vol]6.7 E9/LNormal4.0 - 11.0 E9/LFTMC HemeAutoSSeGFRon 25-24-8255WKA/1.73 sq M.predicted among blacks MDRD (S/P/Bld) [Vol rate/Area]mL/min/{1.73_m2}Normal >=59[facility] CenterComment on above:Order Comment: Order added by Discern Expert.Result Comment: eGFR is race adjusted. AA=. Performed By: #### 7153303, 9426963, 06334412, 5405722, 14666667 ####[facility] [address] [place], [place] [address]WLO/1.73 sq M.predicted among non-blacks MDRD (S/P/Bld) [Vol rate/Area]mL/min/{1.73_m2} Normal>=59[facility] CenterComment on above:Order Comment: Order added by Discern Expert.Result Comment: Chronic kidney disease could be indicated at eGFR's of less than 60 mL/min/1.73m2. Kidney failure is indicated at less than 15 mL/min/1.73m2.Performed By: #### 1801061, 7120595, 37068553, 6738937, 68108946 ####[facility] [address] [place], [place] [address]Dercrq Summary.on 73-42-9435Oyizee Summary. CD:[id number]:[id number]+PGhlYWQ+LZ7LVZPvB98nsXTqvP8UJ4jUYX6YPDVVFSTVOZ9JIK8uj UT5MKgbM6XexvHa [file] bGFw (more content not included)...[facility] HospitalConsent for Treatmenton 14-57-1920Snguedk for Treatment [id number]:127[facility] HospitalPhysician Orderon 52-27-5401Ehswrvdhy Order [id number]#1.00CD:[address] [place], [place] [address]XR Shoulder Complete Righton 48-12-1787JS Shoulder Complete RightExam Date/Time: 02/03/2022 09:53 EDT Reason for Exam: [...] Des Reis M.D. Transcribed by: CHRIS Technologist: HYUNUniversity Hospitals Health SystemCBC AUTO DIFFon 75-48-2446WNWH #0.0 103/ulNormal0.0-0.1Berger HospitalComment on above:Performed By: #### CBC #### [facility] [address] [address] [address] Venancio SorianoBasophils/100 WBC (Bld)0.6 %Normal0.2-2.0The [facility] Comment on above:Performed By: #### CBC #### [facility] [address] [place] [address] Dr. Venancio Byrd #0.1 103/ulNormal0.0-0.7The [facility] Hospital ToledoComment on above: Performed By: #### CBC #### [facility] [address] [place] [address] Dr. Venancio Gargosinophils/100 WBC (Bld)1.3 %Normal0.9-7.0The [facility] Comment on above:Performed By: #### CBC #### [facility] [address] [place] [address] Dr. Venancio Gargrythrocyte distribution width (RBC) [Ratio]12.8 %Xevckg41.0-15.0 The [facility] Hospital ToledoComment on above:Performed By: #### CBC #### [facility] [address] [place] [address] Dr. Venancio SorianoHematocrit (Bld) [Volume fraction]36.5 %Ilonrq44.0-48.0The [facility] Hospital ToledoComment on above:Performed By: #### CBC #### [facility] [address] [place] [address] Dr. Venancio SorianoHemoglobin (Bld) [Mass/Vol]12.2 g/wJIsxzlv37.0-16.0The [facility] Hospital ToledoComment on above:Performed By: #### CBC #### [facility] [address] [place] [address] Dr. Venacnio Tan #0.01 10e3/ulNormal0.00-0.03The [facility] Hospital ToledoComment on above:Performed By: #### CBC #### [facility] [address] [place] [address] Dr. Venancio Tan %0.2 %Normal0.0-0.5The [facility] Hospital ToledoComment on above: Performed By: #### CBC #### [facility] [address] [place] [address] Dr. Venancio Mora #2.7 103/ulNormal1.2-3.8The [facility] ToledoComment on above:Performed By: #### CBC #### [facility] [address] [place] [address] Dr. Venancio Ruizhocytes/100 WBC (Bld)42.9 %Ckrbjp18.5-60.0The [facility] ToledoComment on above:Performed By: #### CBC #### [facility] [address] [place] [address] Dr. Venancio Gusman DIFF REQNONormalThe [facility] Hospital ToledoComment on above: Performed By: #### CBC #### [facility] [address] [place] [address] Dr. Venancio Peraza (RBC) [Entitic mass]29.4 nhGfmrcx62.7-34.0The [facility] Hospital ToledoComment on above:Performed By: #### CBC #### [facility] [address] [place] [address] Dr. Venancio Stoddard (RBC) [Mass/Vol]33.4 g/vWXulaap48.9-35.2The [facility] ToledoComment on above:Performed By: #### CBC #### [facility] [address] [place] [address] Dr. Venancio Coon (RBC) [Entitic vol]88.0 pQOehqby79.0-99.0The [facility] Hospital ToledoComment on above:Performed By: #### CBC #### [facility] [address] [place] [address] Dr. Venancio Lopez #0.5 103/ulNormal0.3-0.8The [facility] ToledoComment on above:Performed By: #### CBC #### [facility] [address] [place] [address] Dr. Venancio Rodriguezocytes/100 WBC (Bld)7.2 %Normal1.7-12.0The [facility] Comment on above:Performed By: #### CBC #### [facility] [address] [place] [address] Dr. Venancio Patterson #3.0 103/ulNormal1.4-6.5The [facility] ToledoComment on above:Performed By: #### CBC #### [facility] [address] [place] [address] Dr. Venancio Goodeutrophils/100 WBC (Bld)47.8 %Ddkoyk71.0-75.0The [facility] ToledoComment on above:Performed By: #### CBC #### [facility] [address] [place] [address] Dr. Venancio Epstein mean volume (Bld) [Entitic vol]9.5 fLNormal9.5-13.5The [facility] Hospital ToledoComment on above:Performed By: #### CBC #### [facility] [address] [place] [address] Dr. Venancio PaytonT323 103/cbSmphtt306-763Xfz [facility] ToledoComment on above: Performed By: #### CBC #### [facility] [address] [place] [address] Dr. Venancio SorianoRBC4.15 106/ulCritically low4.20-5.40The [facility] Hospital ToledoComment on above:Performed By: #### CBC #### [facility] [address] [place] [address] Dr. Venancio SorianoWBC6.2 103/ulNormal4.0-11.0The [facility] Hospital ToledoComment on above: Performed By: #### CBC #### [facility] [address] [place] [address] Dr. Venancio Mota 14(COMP METB)on 02-99-5724Ttwzjaw [Mass/Vol]4.0 g/dLNormal 3.4-5.0The [facility] ToledoComment on above:Performed By: #### CMP #### [facility] [address] [place] [address] Dr. Venancio SorianoAlbumin/Globulin [Mass ratio]1.2 {ratio}NormalBerger HospitalComment on above:Performed By: #### CMP #### [facility] [address] [place] [address] Dr. Venancio BrasherP [Catalytic activity/Vol]67 U/CWwxokp69-370Xef [facility] ToledoComment on above:Performed By: #### CMP #### [facility] [address] [place] [address] Dr. Venancio BrasherT [Catalytic activity/Vol]16 U/SQdrxlq55-87Oif [facility] ToledoComment on above:Performed By: #### CMP #### [facility] [address] [place] [address] Dr. Venancio Weemson gap [Moles/Vol]11.8 mmol/LNormalThe [facility] Comment on above:Performed By: #### CMP #### [facility] [address] [place] [address] Dr. Venancio SorianoAST [Catalytic activity/Vol]9 U/LCritically apb44-88Fij [facility] ToledoComment on above:Performed By: #### CMP #### [facility] [address] [place] [address] Dr. Venancio SorianoBilirubin [Mass/Vol]0.3 mg/dLNormal0.2-1.0[facility] Comment on above:Performed By: #### CMP #### [facility] [address] [place] [address] Dr. Venancio SorianoCalcium [Mass/Vol]8.6 mg/dLNormal8.5-10.1[facility] Comment on above:Performed By: #### CMP #### [facility] [address] [place] [address] Dr. Venancio SorianoChloride [Moles/Vol]106 mmol/AWxmhpn62-742Fod [facility] Comment on above:Performed By: #### CMP #### [facility] [address] [place] [address] Dr. Venancio SorianoCO2 [Moles/Vol]24.9 mmol/ZKuamtp01.0-32.0[facility] Comment on above:Performed By: #### CMP #### [facility] [address] [address] [address] Venancio SorianoCreatinine [Mass/Vol]0.58 mg/dLNormal0.55-1.02[facility] HospitalComment on above:Performed By: #### CMP #### [facility] [address] [address] [address] Venancio GargGFR-AF BAHRAINI>60Normal>=60[facility]edoComment on above:Performed By: #### CMP #### [facility] [address] [place] [address] Dr. Venancio GargGFR-NON AF BAHRAINI>60Normal>=60[facility] HospitalComment on above:Performed By: #### CMP #### [facility] [address] [place] [address] Dr. Venancio SorianoGlobulin (S) [Mass/Vol]3.3 g/dLNormalThe [facility] ToledoComment on above:Performed By: #### CMP #### [facility] [address] [place] [address] Dr. Venancio SorianoGlucose [Mass/Vol]94 mg/wRQzdcdw36-984GvwBer[facility] Hospital Comment on above:Performed By: #### CMP #### [facility] [address] [place] [address] Dr. Venancio SorianoPotassium [Moles/Vol]3.7 mmol/LNormal3.5-5.1[facility] Comment on above:Performed By: #### CMP #### [facility] [address] [place] [address] Dr. Venancio SorianoProtein [Mass/Vol]7.3 g/dLNormal6.4-8.2[facility] Comment on above:Performed By: #### CMP #### [facility] [address] [place] [address] Dr. Venancio SorianoSodium [Moles/Vol]139 mmol/NXcbsfk436-660PtpBerger Hospital Comment on above:Performed By: #### CMP #### [facility] [address], [place] [address] Dr. Venancio SorianoUrea nitrogen [Mass/Vol]9.0 mg/dLNormal6.4-19.3[facility]edoComment on above:Performed By: #### CMP #### [facility] [address], [place] [address] Dr. Venancio SorianoUrea nitrogen/Creatinine [Mass ratio]15.5 mg/mgNormalThe [facility] ToledoComment on above:Performed By: #### CMP #### [facility] [address] [address] [address] Venancio Ng Instructionson 48-98-3604Lbqbzbdvg Instructions [id number]#[id number]:127NormalFisher Ralls Medical CenterED Note-Physicianon 67-58-6953VO Note-PhysicianBasic Information Time Seen: Cherry Hazel PA-C 10/19/2021 [...] classified elsewhere (B97.89: Other viral agents as thecause of diseases classified elsewhere) Orders: Influenza A&B Ag Rapid COVID Antigen ([facility]) Disposition Plan Patient Discharge Condition Stable Discharge Disposition Home Discharge Prescription List Prescriptions No active prescription medications Follow-up With When Contact Information Michelle Mata In 3 days 10/22/2021 EDT Additional Instructions: Patient Education Viral Respiratory Infection, Ybkm-Og-Nnvu Attestation This visit was performed by both [...] data available. Diagnostic Results No qualifying data available.[facility] HospitalComment on above: Result Comment: Electronically Signed By: Cherry Hazel PA-C\.br\Date and Time Signed: 10/19/21 17:19 EDT\.br\Electronically Co-Signed By: Miko Yepez MD\.br\Date and Time Co-Signed: 10/22/21 10:35EDTCoding Summary.on 10-20-2021 Coding Summary. CD:[id number]+PGhlYWQ+QW8WYNEtK48hfCHtcO7WV8wRUO0WTPZHLCPPVQ2GID7nc MO4LNwwG6QytgVo [file] YXBz (more content not included)...[facility] HospitalConsent for Treatmenton 71-67-2929Xutgsmv for Treatment [id number]#[id number]:127NormPaulding [facility] Clinical Summaryon 58-52-6095NG Clinical Summary [place] [id number] ED Clinical Summary Person Information Name: [facility]IBEL [facility] Age: 21 Years : 2000 Sex: Female Language: Albanian PCP: JOSE G VENCES, JOE Joseph Marital [...] 10/19/2021 17:27:21 10/19/2021 17:27:21 10/19/2021 17:27:21 AD[address]ESS: [address] [id number] [facility] DOC NOTES: MEDICAL INFORMATION: Prescriptions Given: Medications to Continue with No Changes Other Medications ethinyl estradiol-norgestimate (Sprintec oral tablet) Ib By Mouth every day. ibuprofen (ibuprofen 600 mg Tab) 1 Tablets By Mouth every 6 hours as needed as needed for pain. PATIENT EDUCATION INFORMATION: Instructions: Viral Respiratory Infection, Xjwh-In-Obgm Follow up: With: Address: When: Michelle Mata In 3 days 10/22/2021 DIAGNOSIS: 1:Viral respiratory illness; Other viral agents as the cause of diseases classified elsewhereNormalFisher Ralls Medical CenterED Patient Education Noteon 85-04-0971SU Patient Education NoteInfectious Disease Viral Respiratory Infection A viral respiratory [...] home: Managing pain and congestion ? Take auox-ifq-rtxmdnb and prescription medicines only as told by your doctor. ? If you have a sore throat, gargle with salt water. Do this 3?4 times per day or as needed. To make a salt-water mixture, dissolve ??1 tsp of salt in 1 cup of warm water. Make sure that all the saltdissolves. ? Use nose drops made from salt [...] after you cough or sneeze. If soap andwater are not available, 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 ? Avoid contact with people who are [...] 05/13/2009 Document Revised: 06/08/2019 Document Reviewed: 07/11/2018 fivesquids.co.uk Patient Education ? 2019 [employer] ED Patient Summaryon [id number] Patient Summary [address] [place] [id number] Patient Discharge Instructions Person Information Name: MARIBEL VELEZ Age: 21 Years Arrival Date: 10/19/2021 17:05:16 Discharge Diagnosis: 1:Viral respiratory illness; Other viral agents as the cause of diseases classified elsewhere Primary Care Physician: JOE PEREZ MD Provider Information Primary Provider: [employer] Owner Operator:None The exam and treatment you received in the Emergency Department were for an urgent problem and are not intended as complete care. It is important that you follow up with a doctor, nurse practitioner,or physician?s assistant professor of life sciences for ongoing care. If your symptoms become [...] provider. Patient Education Materials: Viral Respiratory Infection, Srdh-Yh-Bkkt A MESSAGE TO ALL PATIENTS REGARDING OPIOIDS PRESCRIPTION OPIOIDS: WHAT YOU NEED TO KNOW Prescription opioids can be used to help relieve ckpgdauw-mo-unoicn pain and are often prescribed following a [...] and have fewer risks and side effects. Optionsmay include: ? Pain relievers such as acetaminophen, [...] unused prescription opioids: Find your community drug take- back program or [employer] mail-back program, or flush them down the toilet, following guidance from the Food and Drug Administration (www.fda.gov/Drugs/ResourcesForYou). ? Visit www.cdc.gov/drugoverdose to learn about the risks of opioids abuse and overdose. ? If you believe you may be struggling with addiction, tell your health healthcare consulting manager and ask for guidance or call [facility]?S National Helpline at 3-099-698-ZZTI. p Source: [place] Departmen (more content not included)...[facility] North HospitalInfluenza A&B Agon 64-39-5282Buoslxdkdb A AgNegativeNormalNegativeOhio State University Wexner Medical CenterComment on above:Performed By: #### [id number] ####[facility] [address] [place], [place] [address]Qharftedoi B Ag NegativeNormalNegWilson Street HospitalComment on above:Result Comment: Test sensitivity and specificity vary for age group, specimen type, antigen types, and prevalence of disease. Test results must be evaluated in conjunction with other clinical data available to the physician. Individuals who received nasally administered Influenza A vaccine may havepositive test results up to 3 days after vaccination.Performed By: #### [id number] ####[facility] [address] [place], [place] [address]JGKRQ OTHER TESTS Ordered By: Mya Reza on 64-67-0661Sonqlazbmx A AgNegative (10/19/21 5:05 PM)NormalNegativeJ[facility] Man SeroInfluenzae B AgNegative (10/19/21 5:05 PM)NormalNegativeJ[facility] Man SeroRapid COV Int NEG CtlPass (10/19/21 5:05 PM)NormalFT Man SeroRapid COV Int POS CtlPass (10/19/21 5:05 PM)NormalJIM TALIAFERRO [facility] Man SeroSARS-CoV+SARS-CoV-2 (COVID-19) Ag IA.rapid Ql (Resp)Not Detected (10/19/21 5:05 PM)NormalNot DetectedJIM [facility]ALIAFERR[facility] Man SeroRapid COVID Antigen ([facility])on 89-28-7570Nsafy COV Int NEG CtlPassNormKettering Health SpringfieldComment on above:Performed By: #### [id number] ####[facility] [address] [facility], [id number] COV Int POS CtlPassNoMarymount HospitalComment on above:Performed By: #### [id number] ####[facility] Ufbfcwkpka[address] Av[address] AveNnew milford hospital, [id number] SARS-CoV+SARS-CoV-2 (COVID-19) Ag IA.rapid Ql (Resp)Not detectedNormalNot DetectedOhio State University Wexner Medical CenterComment on above:Result Comment: The [employer]? System for Rapid Detection of SARS-CoV-2 is a chromatographic digital immunoassay intended for the direct and qualitative detection of SARS-CoV-2 nucleocapsid antigensin nasal swabs from individuals who are suspected of COVID- 19 by their healthcare provider within the first [...] of proteins from SARS-CoV-2, not for any otherviruses or pathogens; and, in the [facility], this test is only authorized for the duration of the declaration that circumstances exist justifying the authorization of emergency use of in vitro diagnostics for detection and/or diagnosis of the virus that causes COVID-19 under Section 564(b)(1) of the Act,21 U.S.C. ? 360bbb-3(b)(1), unless the authorization is terminated or revoked sooner.Performed By: #### [id number] ####[place] [id number] TO INTENSIVE CARE UNIT FOR CONDITION OF INTEREST:FIND:PT:[facility] Comment on above:Performed By: #### [id number] ####[place], [place] [address]EMPLOYED IN A HEALTHCARE SETTING:FIND:PT:NONLima Memorial HospitalComment on above:Performed By: #### [id number] ####[place] [id number] TEST FOR CONDITION OF INTEREST:FIND:PT:UnknownNormal [facility] Wexner Medical CenterComment on above:Performed By: #### [id number] ####[address]HAS SYMPTOMS RELATED TO CONDITION OF INTEREST:FIND:PT:YESNormalOhio State University Wexner Medical CenterComment on above:Performed By: #### [id number] ####[place] [id number] FOR CONDITION OF INTEREST:FIND:PT:NONLima Memorial HospitalComment on above:Performed By: #### [id number] ####[place] [id number] STATUS:FIND:PT:NONormalOhio State University Wexner Medical Center Comment on above:Performed By: #### [id number] ####[facility] [address] [id number] IN A [facility] CARE SETTING:FIND:PT:NONormalAshe Memorial Hospitalpedro [facility] Cross HospitalComment on above:Performed By: #### [id number] ####[facility] [address] [id number] SINGLE QUAD RT UPPERon 90-60-5085GQ SINGLE QUAD RT UPPER EXAMINATION: US SINGLE [...] Electronically authenticated by: SUGAR CAMARENA Date: 2021-09-19 11:[address] [place], [place] [address]Patient Educationon 29-60-8085Apbzibx EducationPediatrics BMI for Children and Teens BMI is a number that is calculated from a child or teen's weight and height. BMI serves as a fairlyreliable indicator of how much of a child or teen's weight is composed of fat. BMI does not measurebody fat directly. Rather, it is considered an alternative to measuring body fat directly, which isdifficult and can be expensive. How is BMI used with children and teens? BMI is used as a screening tool to identify possible weight problems. In children and teens, BMI isused to check for obesity, being overweight, being [...] meters squared number. To calculate BMI with Albanian measurements: 1. Measure weight in lb. 2. [...] and adults. However, the criteria that are usedto interpret the meaning of BMI differ with [...] people from 2?20 years of age. Health patient care assistant use the charts to identify underweight [...] 08/20/2004 Document Revised: 05/13/2018 Document Reviewed: 11/11/2016 fivesquids.co.uk Patient Education ? 2019 [employer].[facility] Urinalysis - AUTOMATEDon 81-49-0402Soxzothkuj (U)[facility] [employer] Other Bilirubin Ql (U)[facility] ValdeseReds10 [employer] Other Color (U)yellowReds10 [employer] Other Glucose Ql (U)[facility] ValdeseReds10 [employer] Other Hemoglobin Ql (U)[facility] [employer] Other Ketones Ql (U)[facility] [employer] Other Leukocyte esterase Test strip Ql (U)[place]Fort [place] [employer] Other Nitrite Ql (U)[facility] ValdeseReds10 [employer] Other pH (U)8.5 [pH][place] [employer] Other Protein Ql (U)[facility] ValdeseReds10 [employer] Other Specific gravity (U) [Rel density]1.025[place] [employer] Other Urobilinogen (U) [Mass/Vol]1.0 mg/dLNoliberty hospital InGaugeIt Other Urinalysis - AUTOMATEDNortInsightfulinc Other XR FEMUR RIGHT (MIN 2 VIEWS)on 47-49-5718BG FEMUR RIGHT (MIN 2 VIEWS)RIGHT FEMUR X-RAYS, 11/15/2019. HISTORY: Right hip and leg pain. COMPARISON: None. FINDINGS: AP and lateral views of the right femur were obtained. Bone mineralization is normal. Alignment is normal. There is no fracture. No dislocation. No degenerative changes. IMPRESSION: Normal right femur x-rays. Interpreted by: Josué Erickson MD Signed by: Josué Erickson MD 11/15/19 Final resultNormalCleveland Clinic Mentor HospitalNoal right femur x-rays.Zuga MedicalEXCELSIOR SPRINGS MEDICAL CENTERMARITZA FEMUR X-RAYS, 11/15/2019. HISTORY: Right hip and leg pain. COMPARISON: None. FINDINGS: AP and lateral views of the right femur were obtained. Bone mineralization is normal. Alignment is normal. There is no fracture. No dislocation. No degenerative changes.Zuga MedicalEXCELSIOR SPRINGS MEDICAL CENTERMike Mhpn Incoming Radiant Results From [facility] [employer]/[employer] - 11/15/2019 6:01 PM EDT RIGHT FEMUR X-RAYS, 11/15/2019. HISTORY: Right hip and leg pain. COMPARISON: None. FINDINGS: AP and lateral views of the right femur were obtained. Bone mineralization is normal. Alignment is normal. There is no fracture. No dislocation. No degenerative changes. IMPRESSION: Normal right femur x-rays. Critical Links COLIZA Provider Noteon 87-33-0775Xhpejwd mass souravNancy ANANDUNM CANCER CENTERAshley ED eMERGENCY dEPARTMENT eNCOUnter Pt Name: Maribel Velez Birthdate 2000 Date of evaluation: 08/10/2018 Provider: Marek Watts APRN - RENETTA I have evaluated this patient on my own, per my scope of practice with attending physician available for consultation CHIEF COMPLAINT Chief Complaint Patient presents with ? URI HISTORY OF PRESENT ILLNESS (Location/Symptom, Timing/Onset,Context/Setting, Quality, Duration, Modifying Factors, Severity) Note limiting [...] nausea and vomiting. Skin: Negative for rash. Allergic/Immunologic: Negative for immunocompromised state. Neurological: Negative for [...] the Claritin, Tessalon, increase fluids, rest. Take iwzq-ghb-olbquoe Tylenol or ibuprofen as if her pain. [...] Discharge 08/10/2018 10:34:25 AM PATIENT REFERRED TO: [facility] [address] [facility] [address] Call As needed DISCHARGE [...] Emergency Medicine Provider KARMEN Urrutia CNP 08/10/[address] [place] [address] Vital Signs Date TimeVital SignValuePerforming RbmjoaztzQryiuyel00-73-2501 09:30-0400Body yoztoj40.4 kgCorey Kaykay DO Work Phone: [phone]-[facility] HospitalMmslcqrbuo58-69-2472 09:30-0400Diastolic blood aulzprmu96 mm[Hg]Eldon Kaykay DO Work Phone: [phone] [place], [place] [address]Mvxsgwhtww09-13-5130 09:30-0400Systolic blood iadamdbg433 mm[Hg]Eldon Kaykay DO Work Phone: [phone] [place], [place] [address]Rjjxsciwge45-50-4097 13:40-0400Body kmkqaw88.55 kgMarycarmen MELÉNDEZ Work Phone: [phone] HospitalFizrebvuhn48-32-2645 13:40-0400Diastolic blood brteugjq72 mm[Hg]Marycarmen MELÉNDEZ Work Phone: [phone] HospitalJlijgslcvf70-98-2913 13:40-0400Systolic blood nkjujsol929 mm[Hg]Marycarmen MELÉNDEZ Work Phone: [phone]-[facility] HospitalFxqmypejcj32-78-4080 14:13-0500Body twviqs19.83 kgMarycarmen MELÉNDEZ Work Phone: [phone]-[facility] HospitalTsrscvcmyc94-72-6895 14:13-0500Diastolic blood prjzoyum29 mm[Hg]Marycamren MELÉNDEZ Work Phone: [facility] HospitalNxbzgjkvuv02-23-7340 14:13-0500Systolic blood mm[Hg]Marycarmen MELÉNDEZ Work Phone: [facility] HospitalCwadraacuf66-91-0319 11:04-0500Body cyjeac70.47 kgCorey Kaykay DO Work Phone: [facility] HospitalSsmtdxfptk15-47-0777 11:04-0500Diastolic blood ptmmolcy39 mm[Hg]Eldon Kaykay DO Work Phone: [facility] HospitalWbnsxxfqkd96-81-9913 11:04-0500Systolic blood mm[Hg]Eldon Kaykay DO Work Phone: [facility] HospitalYdiznvizao09-04-2668 10:02-0500Body qiehkm11.07 kgMarycarmen MELÉNDEZ Work Phone: [facility] HospitalBcuqpvarce08-67-4673 10:02-0500Diastolic blood ltxbdacd86 mm[Hg]Marycarmen MELÉNDEZ Work Phone: [facility] HospitalXlpzljkwwy86-61-8575 10:02-0500Systolic blood mgexpfaz668 mm[Hg]Marycarmen MELÉNDEZ Work Phone: [phone] [employer], [place] [address]Dmpcxnkgbl67-62-5297 10:28-0500Body zhkmgy52.93 kgCorey Kaykay DO Work Phone: [phone]-[facility] HospitalPvjodzjbny36-84-9799 10:28-0500Diastolic blood otqhabra19 mm[Hg]Eldon Kaykay DO Work Phone: [phone]-[facility] HospitalDawaatkgkz55-91-5733 10:28-0500Systolic blood mm[Hg]Eldon Kaykay DO Work Phone: [phone] [place], [place] [address]Ejcwvrbffl72-43-4788 09:28-0500Body .02 kgCorey Kaykay DO Work Phone: [phone]-[facility] HospitalXqrtnegrry80-91-7405 09:28-0500Diastolic blood zppemoab53 mm[Hg]Eldon Kaykay DO Work Phone: [facility] HospitalFhpcjstvvz18-46-3817 09:28-0500Systolic blood qomutqix272 mm[Hg]Eldon Kaykay DO Work Phone: [phone] [place], [place] [address]Khmvrerqkq35-83-6736 10:01-0500Body hgsocg24.81 kgMarycarmen MELÉNDEZ Work Phone: [phone]-[facility] HospitalGvriryegpg76-32-8478 10:01-0500Diastolic blood mm[Hg]Marycarmen MELÉNDEZ Work Phone: [phone]-[facility] HospitalRlgpdtxbcg17-67-9323 10:01-0500Systolic blood tsmkuojx510 mm[Hg]Marycarmen MELÉNDEZ Work Phone: [phone] [place], [place] [address]Jfqygrufrm69-05-9410 10:40-0500Body .11 kgCorey Kaykay DO Work Phone: [phone] [place], [place] [address]Ilmhzwhapa91-22-5231 10:40-0500Diastolic blood mm[Hg]Eldon Kaykay DO Work Phone: [phone] [place], [place] [address]Pwxccwxggj34-02-5565 10:40-0500Systolic blood gzglysdq509 mm[Hg]Eldon Kaykay DO Work Phone: [phone] [place], [place] [address]Gwdjqlrfbv81-45-0905 12:00-0500Body yhrvle05.66 kgCorey Kaykay DO Work Phone: [phone] [place], [place] [address]Kwzglqhrqa75-04-1152 12:00-0500Diastolic blood jxyvusir13 mm[Hg]Eldon Kaykay DO Work Phone: [phone] [place], [place] [address]Pyyszzdzys71-31-3194 12:00-0500Systolic blood dmyvzzap794 mm[Hg]Eldon Kaykay DO Work Phone: [phone] [place], [place] [address]Umfcmwaaht76-59-5307 11:03-0500Body xaueru99.03 kgMarycarmen MELÉNDEZ Work Phone: [phone] [place], [place] [address]Soxkcdeewl81-30-7891 11:03-0500Diastolic blood xmnfulhi86 mm[Hg]Marycarmen MELÉNDEZ Work Phone: [phone] [place], [place] [address]Zzqgeicqsg80-60-1814 11:03-0500Systolic blood mm[Hg]Marycarmen MELÉNDEZ Work Phone: [phone] [place], [place] [address]Gqllkefymh13-37-0260 10:11-0500Body yttwxc19.22 kgCorey Kaykay DO Work Phone: [facility] HospitalNqooxdmaxv55-76-6582 10:11-0500Diastolic blood rrfauyuj38 mm[Hg]Eldon Kaykay DO Work Phone: [facility] HospitalMhzwqxhmna94-55-7968 10:11-0500Systolic blood bwnnbmky205 mm[Hg]Eldon Kaykay DO Work Phone: [facility] HospitalCfudcleosh45-49-4750 12:06-0400Body cqueba12.04 kgMarycarmen MELÉNDEZ Work Phone: [facility] HospitalPqpfxumvhh96-71-1114 12:06-0400Diastolic blood csarrony27 mm[Hg]Marycarmen MELÉNDEZ Work Phone: [facility] HospitalAzzhfrgzku74-46-5182 12:06-0400Systolic blood olcwiiyf079 mm[Hg]Marycarmen MELÉNDEZ Work Phone: [facility] HospitalPofyhznsac15-84-1120 18:24-0400Body bbqpwy559.1 cmMem[facility]09-25-2024 18:24-0400Body mass index (BMI) [Ratio]24.7 kg/b4SkvtqxmxuMemorial Health System [facility]09-25-2024 18:24-0400Body kxyobpnjknv31.1 [degF][facility]09-25-2024 18:24-0400Body .58 kgMem[facility]09-25-2024 18:24-0400Diastolic blood mrieosmn63 mm[Hg][facility]09-25-2024 18:24-0400 Heart rate84 /[facility]09-25-2024 18:24-0400 Respiratory rate18 /[facility]09-25-2024 18:24-0400 SaO2% (BldA) [Mass fraction]96 %[facility]09-25-2024 18:24-0400Systolic blood eeminvvu596 mm[Hg][facility] 02-17-2024 11:13-0400Body wuwyth48.68 kgMarycarmen MELÉNDEZ Work Phone: [facility] HospitalAwsvlkgydt65-89-5160 11:13-0400Diastolic blood oxlsznww38 mm[Hg]Marycarmen MELÉNDEZ Work Phone: [facility] HospitalUkqkbsbqol44-62-0664 11:13-0400Systolic blood yylidfda499 mm[Hg]Marycarmen MELÉNDEZ Work Phone: [facility] HospitalPdxfulidtu26-40-9120 07:25-0400Diastolic blood mm[Hg]Kevin Santoro [address] [place], [place] 77[address]109-02-2022 07:25-0400 Systolic blood sfbusuwj504 mm[Hg]Kevin Santoro [address] [place], [place] 7787109-02-2022 06:20-0400Body zlcxjyzmrue99.24 [degF]Kevin Santoro [address] [place], [place] 7787109-02-2022 06:20-0400 Diastolic blood guacmzta43 mm[Hg]Kevin Santoro [address] [place], [place] 7787109-02-2022 06:20-0400Heart rate75 /minKevin Santoro [address] [place], [place] 7787109-02-2022 06:20-0400 Respiratory rate20 /minKevin Santoro [address] [place], [place] 7787109-02-2022 06:20-7416CzZ0% (BldA) [Mass fraction]98 %Kevin Santoro [address] [place], [place] 7787109-02-2022 06:20-0400 Systolic blood ggsvxtad876 mm[Hg]Kevin Santoro [address] [place], [place] 7787105-08-2022 17:09-0400Body bmsmuqahvgi20.96 [degF]Miko Yepez [facility]05-08-2022 17:09-0400 Diastolic blood khrjjyfo86 mm[Hg]Miko Yepez [address] [place], [place] 77[address]105-08-2022 17:09-0400Heart rate89 /minTim Vincent [facility]05-08-2022 17:09-0400 Respiratory rate17 /minMiko Yepez [facility]05-08-2022 17:09-6621YuI1% (BldA) [Mass fraction]100 %Miko Yepez [facility]05-08-2022 17:09-0400 Systolic blood imjvvxsu671 mm[Hg]Miko Yepez [facility]04-06-2022 15:00-0400Body opvwbw69.69 kgDavid Hykes Other [facility] [facility] [employer] Other 01-12-2022 15:15-0500Body ioxhsy54.6 kgDavid Hykes Other [place] [employer] Other 10-26-2021 14:50-0400Body iihpex583.83 cmSnancy Randall Other [employer] Other 10-26-2021 14:50-0400Body mass index (BMI) [Ratio] 24.84 kg/y6OjoprwwlbMaribel Randall Other [employer] Other 10-26-2021 14:50-0400Body lxlwnffcvoq50.2 [degF] Maribel Randall Other [employer] Other 10-26-2021 14:50-0400Body dodvjc00.68 kgStsuzan Randall Other [employer] Other 10-26-2021 14:50-0400Diastolic blood mm[Hg] Maribel Randall Other [employer] Other 10-26-2021 14:50-0400Respiratory rate18 /minSnancy Randall Other [employer] Other 10-26-2021 14:50-2128EnR9% (BldA) [Mass fraction]100 % Maribel Randall Other [employer] Other 10-26-2021 14:50-0400Systolic blood mm[Hg] Maribel Randall Other [employer] Other Encounters Encounter DateEncounter TypeCare ProviderFacilityStart: 12-21-2024 End: 87-42-5311Wzkvdm flowsheetCorey Kaykay DO Work Phone: noms BCP OBStart: 12-21-2024 End: 94-32-2607Hlaphs flowsheetCorey Kaykay DO Work Phone: noms BCP OBStart: 12-21-2024 End: 52-76-6920zieogipwrwLWMQD FAZIONot AvailableStart: 12-21-2024 End: 96-81-6860Baifgh outpatient visit 15 minutesCorey Kaykay DO Work Phone: noms [facility] OBComment on above:Cyst of ovary, unspecified laterality; Follow-up examStart: 12-20-2024 End: 55-43-7707Tkzffqbjs department patient visitNO PCP NO PCPProMedica Batesville HospitalStart: 09-20-2024 End: 99-31-7644jdzfoevbyfGei Ramey PA Work Phone: noms BCP OBStart: 09-20-2024 End: 72-90-6724Osvxcj-up encounterMarycarmen MELÉNDEZ Work Phone: noms [facility] OBComment on above:Constipation, unspecified constipation type (Primary Dx); 6 weeks follow-upStart: 08-30-2024 End: 73-27-3847jtonsbdteoVDC Vadim AvailableStart: 08-03-2024 End: 65-93-1794Sxwerjpjq Result EncounterCorey Kaykay DO Work Phone: noms External Department UnsolicitedStart: 08-03-2024 End: 00-70-7301Oftdogjxn Result EncounterCorey Kaykay DO Work Phone: noms External Department UnsolicitedStart: 08-01-2024 End: 24-80-5458ayxrolqmczCzdes [facility]aziSum[facility] Work Phone: Start: 08-01-2024 End: 42-37-5410Moinjthz ReferredCorey Kaykay DO Work Phone: [facility] [place] Work Phone: Start: 08-01-2024 End: 01-01-2233Srvxcymxf Result EncounterCorey Kaykay DO Work Phone: noms External Department UnsolicitedStart: 08-01-2024 End: 16-19-9331Uzvrjhrei Result EncounterCorey Kaykay DO Work Phone: noms External Department UnsolicitedStart: 07-27-2024 End: 57-89-7141xvkwzrmunwSER RAMEYNot AvailableStart: 07-27-2024 End: 25-80-4189Ytatdw outpatient visit 15 minutesMarycarmen MELÉNDEZ Work Phone: NOXM BCP OBComment on above:Third trimester ; 39 weeks gestation of pregnancyStart: 07-20-2024 End: 35-89-0094Azurnv flowsheetCorey Kaykay DO Work Phone: [facility] OBStart: 07-20-2024 End: 16-21-1322Lljucx flowsheetCorey Kaykay DO Work Phone: [facility] B[facility] OBStart: 07-20-2024 End: 04-00-1523jcgcqyjdpiYAMJZ FAZIONot AvailableStart: 07-20-2024 End: 42-96-2601Cwlrhk outpatient visit 15 minutesCorey Kaykay DO Work Phone: [facility] BCP OBComment on above:Third trimester ; 38 weeks gestation of pregnancyStart: 07-13-2024 End: 52-12-1265Qzcktg Kendy MELÉNDEZ Work Phone: [facility] BCP OBStart: 07-13-2024 End: 42-30-7533Yyrokn flowsheetMarycarmen MELÉNDEZ Work Phone: [facility] OBStart: 07-13-2024 End: 00-55-9514ljaprvdgjuSVA Vadim AvailableStart: 07-13-2024 End: 34-82-1651Rogqge outpatient visit 15 minutesAmy Morelia MELÉNDEZ Work Phone: NOMS BCP OBComment on above:Third trimester ; 37 weeks gestation of pregnancyStart: 07-06-2024 End: 77-55-6543Xwqpazofp Result EncounterCorey Kaykay DO Work Phone: NOMS External Department UnsolicitedStart: 07-06-2024 End: 87-75-6730Uxgtqyzze Result EncounterCorey Kaykay DO Work Phone: NOMS External Department UnsolicitedStart: 07-06-2024 End: 13-99-8055Ccuoph outpatient visit 15 minutesCorey Kaykay DO Work Phone: [facility] BCP OBComment on above:Third trimester ; 36 weeks gestation of ; Ear infectionStart: 07-06-2024 End: 72-72-0519wojxmviocuBTDNN FAZIONot AvailableStart: 06-29-2024 End: 44-04-0323Aadnbookr Result EncounterAmy Morelia MELÉNDEZ Work Phone: NOMS External Department UnsolicitedStart: 06-29-2024 End: 73-31-4010Waekuwlsg Result EncounterAmy Morelia MELÉNDEZ Work Phone: NOMS External Department UnsolicitedStart: 06-29-2024 End: 47-76-3434Dsdgog outpatient visit 15 minutesCorey Kaykay DO Work Phone: N[facility] BCP OBComment on above:Third trimester ; 35 weeks gestation of pregnancyStart: 06-29-2024 End: 56-18-9968mbchxuagumXRKKV FAZIONot AvailableStart: 06-22-2024 End: 87-47-0984Bqbwry flowsWesly MELÉNDEZ Work Phone: [facility] BCP OBStart: 06-22-2024 End: 72-49-7856Kuuyjs flowsheetMarycarmen Thibodeaux PA Work Phone: [facility] BCP OBStart: 06-22-2024 End: 18-91-4448Tkostkhwp Result EncounterCorey Kaykay DO Work Phone: NOMS External Department UnsolicitedStart: 06-22-2024 End: 48-73-6042jmqibkugurTHK RAMEYNot AvailableStart: 06-22-2024 End: 95-66-0702Cazmrw outpatient visit 15 minutesAmy Morelia MELÉNDEZ Work Phone: NOMS BCP OBComment on above:34 weeks gestation of ; Third trimester pregnancyStart: 06-08-2024 End: 57-61-9909Qmmiiy flowsheetCorey Kaykay DO Work Phone: [facility] BCP OBStart: 06-08-2024 End: 90-18-0431Wtfyts flowsheetCorey Kaykay DO Work Phone: [facility] BCP OBStart: 06-08-2024 End: 84-28-0561wpauxsinyiCJKXT FAZIONot AvailableStart: 06-08-2024 End: 64-77-9285Amyytk outpatient visit 15 minutesCorey Kaykay DO Work Phone: [facility] BCP OBComment on above:32 weeks gestation of ; Third trimester ; Excessive growth affecting management of , antepartum, single or unspecified fetusStart: 06-05-2024 End: 77-88-4604Ngvqvjlzk Result EncounterCorey Kaykay DO Work Phone: noMS External Department UnsolicitedStart: 06-05-2024 End: 96-02-1492Eoqlwvbzy Result EncounterCorey Kaykay DO Work Phone: NOMS External Department UnsolicitedStart: 05-24-2024 End: 08-05-8247Tnzszp flowsheetCorey Kaykay DO Work Phone: [facility] BCP OBStart: 05-24-2024 End: 07-93-5889Iukqzg flowsheetCorey Kaykay DO Work Phone: [facility] BCP OBStart: 05-24-2024 End: 91-89-0719Badfvc outpatient visit 15 minutesCorey Kaykay DO Work Phone: [facility] BCP OBComment on above:Third trimester ; 30 weeks gestation of ; Anemia during in third trimester; Excessive growth affecting management of , antepartum, single or unspecified fetusStart: 05-24-2024 End: 06-17-7296ggllndwkdhGIKMV FAZIONot AvailableStart: 05-09-2024 End: 22-31-7919Iypwkasbi Result EncounterCorey Kaykay DO Work Phone: NOMS External Department UnsolicitedStart: 05-09-2024 End: 34-86-7253Pzxrqitue Result EncounterCorey Kaykay DO Work Phone: noMS External Department UnsolicitedStart: 05-08-2024 End: 69-09-0605Ueywit Kendy MELÉNDEZ Work Phone: [facility] BCP OBStart: 05-08-2024 End: 00-99-1074Smhzyn Kendy MELÉNDEZ Work Phone: [facility] BCP OBStart: 05-08-2024 End: 69-44-0764eqffcqtmcdGUJ Vadim AvailableStart: 05-08-2024 End: 29-02-0334Coazfo outpatient visit 15 minutesAmy Morelia MELÉNDEZ Work Phone: [facility] BCP OBComment on above:Third trimester ; 29 weeks gestation of pregnancyStart: 04-29-2024 End: 11-44-9487Oayagksed Result EncounterCorey Kaykay DO Work Phone: noms External Department UnsolicitedStart: 04-29-2024 End: 03-90-4177Gcvfzsxlx Result EncounterCorey Kaykay DO Work Phone: noms External Department UnsolicitedStart: 04-17-2024 End: 78-23-0739Qrcybf flowsheetCorey Kaykay DO Work Phone: [facility] BCP OBStart: 04-17-2024 End: 49-20-7329Pbnovh flowsheetCorey Kaykay DO Work Phone: NOAL BCP OBStart: 04-17-2024 End: 34-66-9113eiyuzpocrsDEWTB FAZIONot AvailableStart: 04-17-2024 End: 81-57-9584Vxfqfk outpatient visit 15 minutesCorey Kaykay DO Work Phone: N[facility] BCP OBComment on above:Second trimester ; 24 weeks gestation of ; Diabetes mellitus screeningStart: 03-16-2024 End: 46-87-6449Pzvejl flowsheetMarycarmen MELÉNDEZ Work Phone: [facility] BCP OBStart: 03-16-2024 End: 13-28-7335Lkddjf flowsheetMarycarmen MELÉNDEZ Work Phone: noms BCP OBStart: 03-16-2024 End: 72-60-8154Prttbechl Result EncounterAmy Morelia MELÉNDEZ Work Phone: NOMS External Department UnsolicitedStart: 03-16-2024 End: 25-06-4560vbdjdwihmhBWT RAMEYNot AvailableStart: 03-16-2024 End: 88-22-3227Tudack outpatient visit 15 minutesAmy Morelia MELÉNDEZ Work Phone: NOMS BCP OBComment on above:20 weeks gestation of (Primary Dx); Second trimester ; Constipation, unspecified constipation typeStart: 03-08-2024 End: 64-35-5747nqcyzmuwpsDakxiteflProMedica Memorial Hospital Work Phone: Start: 03-08-2024 End: 63-28-7253Ibokdyk encounter procedureAtrium Health [facility] Work Phone: Start: 02-17-2024 End: 08-22-4160Fnndgj flowsheetMarycarmen MELÉNDEZ Work Phone: noms BCP OBStart: 02-17-2024 End: 08-63-4227Rztytz flowsheetMarycarmen MELÉNDEZ Work Phone: noms BCP OBStart: 02-17-2024 End: 26-02-5768Udsaxdttq Result EncounterCorey Kaykay DO Work Phone: noms External Department UnsolicitedStart: 02-17-2024 End: 20-37-1675Djbmgjhb Result EncounterMarycarmen MELÉNDEZ Work Phone: noms External Department UnsolicitedStart: 02-17-2024 End: 03-61-5020sbbnudnvxrMIE Vadim AvailableStart: 02-17-2024 End: 49-93-7440Rgvczm outpatient visit 15 minutesAmy Morelia MELÉNDEZ Work Phone: noms [facility] OBComment on above:Screening, , for anatomic survey; Well woman exam with routine gynecological exam; 17 weeks gestation of ; Screen for STD (sexually transmitted disease); Vaginal discharge; Nonintractable headache, unspecified chronicity pattern, unspecified headache typeStart: 02-17-2024 End: 75-93-9783Xgquiok encounter procedureMarycarmen MELÉNDEZ Work Phone: noms HealthcareStart: 01-20-2024 End: 14-11-6782dptrkvsexgRHLQU FAZIONot AvailableStart: 12-31-2023 End: 35-29-0880Kwegrzjwy Result EncounterCorey Kaykay DO Work Phone: noms External Department UnsolicitedStart: 12-31-2023 End: 24-76-2492Mngxpdudj Result EncounterCorey Kaykay DO Work Phone: noms External Department UnsolicitedStart: 07-10-2022 End: 76-05-8816tksegbqjwaUJ AMRIT MARIUSZFacility:G9Azooi: 06-17-2022 End: 49-50-5346qmkwaubhmoWA JAYSON MACARENAFacility:Z2Bnavq: 03-02-2022 End: 65-98-7812Enkjgtmi ReferredMD Lucia Thorne Work Phone: [facility]Start: 02-13-2022 End: 11-90-9893Vtfuqyinh department patient visitJotrav Santoro [facility] Start: 02-03-2022 End: 31-03-9269Qpwmjdu encounter procedureCAITIE ADAM ROLANDO [facility] Start: 01-15-2022 End: 27-66-7112zqpzhevsteMK KIM E KNIGHTFacility:X9Rwhga: 10-19-2021 End: 08-04-3723Kvetmjurf department patient visitMiko Yepez [facility] Start: 09-19-2021 End: 97-27-0154vhyewugedcKR KIM E KNIGHTFacility:C7Chgej: 09-17-2021 End: 70-13-4019hjkbliiumeQfanu Hykes Other [employer] Other Start: 10-01-2512Eirwlx outpatient visit 15 minutes Amy Zimmerman GastroenterologyStart: 08-01-2021 End: 19-37-1227akrhgxuonpPotzd Hykes Other [employer] Other Start: 89-25-4422Tkdueeswc encounterDaquintin Zimmerman GastroenterologyStart: 07-29-2021 End: 68-31-0896sfpzixoeefCqsgd Hykes Other [phone] [employer] Other Start: 46-21-7180Mbkhsstzu encounterDavid Erasmo GastroenterologyStart: 06-25-2021 End: 17-09-7351gkwytkwyhmYliwb Kp Other noReds10 [employer] Other Start: 40-45-9738Uxjmfw outpatient visit 25 minutes Amy KpFPLeila GastroenterologyStart: 64-53-2497Ucqphz outpatient visit 15 minutesMaribel MacG [facility] ClydeStart: 11-15-2019 End: 64-87-8334Tueqhdq encounter procedureMICKELSEYMartha YEPEZ [facility]INAFire[facility] HospitalStart: 11-15-2019 End: 93-18-1404Qyylooksxk hospital visit by physicianPauline Munoz [address] RadiologyComment on above:Injury of right knee, initial encounterStart: 11-15-2019 End: 75-39-5924Iofeykz encounter procedureMICKELSEYMartha YEPEZ SERINAFirelands Regional Medical Center HospitalStart: 11-15-2019 End: 40-91-2337Nbwkzngmju hospital visit by Debby BaileyNationwide [facility] Hospital RadiologyStart: 83-31-3168Fiktgwjqe department patient visitUNKNOSovah Health - [facility] Procedures DateProcedureProcedure DetailPerforming ClinicianStart: 12-21-2024 End: 74-32-2304Whczj dip stick/tablet rgnt non-auto w/o micrscpCorey Kaykay DO Work Phone: Start: 98-87-3960GLS CBC WITH AUTO DIFFCorey Kaykay DO Work Phone: Start: 48-86-1258EXXL CBC WITH PLATELET NO DIFFERENTIALCorey Kaykay DO Work Phone: Start: 07-89-1054Ikdnf dip stick/tablet rgnt non-auto w/o micrscpAmy Morelia MELÉNDEZ Work Phone: Start: 50-34-1717Nnnyv dip stick/tablet rgnt non-auto w/o micrscpAmy Morelia MELÉNDEZ Work Phone: Start: 07-45-0495Vdvqw dip stick/tablet rgnt non-auto w/o micrscpCorey Kaykay DO Work Phone: Start: 82-09-3835LDK MISCELLANEOUS TESTCorey Kaykay DO Work Phone: Start: 81-19-8571MJV FERRITINMarycarmen MELÉNDEZ Work Phone: Start: 28-74-4245Whgrp dip stick/tablet rgnt non-auto w/o micrscpCorey Kaykay DO Work Phone: Start: 72-89-3911VXN CBC WITH AUTO DIFFCorey Kaykay DO Work Phone: Start: 26-23-2209Xmpex dip stick/tablet rgnt non-auto w/o micrscJared MELÉNDEZ Work Phone: Start: 67-93-9805Mptoc dip stick/tablet rgnt non-auto w/o micrscpCorey Kaykay DO Work Phone: Start: 42-98-5383EA OB GROWTHCorey Kaykay DO Work Phone: Start: 82-01-2598MBO HEMOGLOBIN T0AMlwix Kaykay DO Work Phone: Start: 77-11-3075Pjihs dip stick/tablet rgnt non-auto w/o micrscpCorey Kaykay DO Work Phone: Start: 41-98-3055Tgdsxqne screenCorey Kaykay DO Work Phone: Start: 48-43-9340FTY TYPE AND SCREENCorey Kaykay DO Work Phone: Start: 69-50-6854Wignm dip stick/tablet rgnt non-auto w/o micrscJared MELÉNDEZ Work Phone: Start: 84-33-2198QV OB INCOMPLETE ANATOMYCorey Kaykay DO Work Phone: Start: 19-34-7616Mfqyx dip stick/tablet rgnt non-auto w/o micrscpCorey Kaykay DO Work Phone: Start: 08-12-9885Clvue dip stick/tablet rgnt non-auto w/o micrscpAmy Morelia MELÉNDEZ Work Phone: Start: 48-90-9839RD OB ANATOMYAmy Morelia MELÉNDEZ Work Phone: Start: 84-11-8068NC OB CERVICAL LENGTHAmy Morelia MELÉNDEZ Work Phone: Start: 17-02-8847Ffgkv Strep (POC)Start: 02-17-2024 URETHRITIS/DISCHARGE PLUS VAGINITIS (HTRX)Marycarmen MELÉNDEZ Work Phone: Start: 62-11-4886YMZ, SERUM, OPEN SPINA BIFIDACorey Kaykay DO Work Phone: Start: 65-32-3744Ivwye dip stick/tablet rgnt non-auto w/o micrscpAmy Morelia MELÉNDEZ Work Phone: Start: 59-03-8933GV OB TRANSVAGINALCorey Kaykay DO Work Phone: Start: 50-40-9635Okwjptsvehe of kneeTim Vincent Start: 67-37-9487Vwwrmmnlea examination femur minimum 2 viewsMICHAEL POWERSStart: 85-63-1959Nffqzjmnas examination femur minimum 2 viewsMichael Vincent Smalls Other Phone: Plan of Treatment DateCare ActivityDetailAuthorStart: 04-26-2025 End: 23-95-5926Psaerxx encounter llqnlivrv80/13/2025 11:00 AM EST Procedure Visit SHARI ARAYA [address] [place], [phone] Marycarmen Thibodeaux PA [address] [place] [address] SHARI SPAULDINGtart: 03-01-2025 End: 13-64-3886Kntdsgn encounter eslijjeaz16/18/2025 11:00 AM EDT Office Visit [facility] [address] [place] [phone] Eldon Mccracken, DO [address] [place] [address] [facility] BCP OBStart: 74-13-4893TCVSD-19 Vaccine ( season)COVID-19 Vaccine ( season)[facility] HealthcareStart: 02-12-2025 Influenza vaccinationNOKY HealthcareStart: 07-27-2024 End: 76-63-1487Tapstlw encounter yvnlxlbhh31/13/2025 10:50 AM EST Routine [facility] [address] [place] [address] Marycarmen Thibodeaux, PA [address] [place] [address] [place] [address] [facility] BCP OBStart: 07-20-2024 End: 09-55-2438Lhwduvh encounter /06/2025 10:30 AM EST Routine [facility] [address] [place] [address] [place] [address] Eldon Mccracken, DO [address] [place] [address] [facility] B[facility] OBStart: 07-13-2024 End: 57-46-4839Johxtnu encounter uccrwvrba52/30/2025 9:50 AM EST Routine [facility] [address] [place] [address] Marycarmen Thibodeaux, PA [address] [place] [address] [facility] OBStart: 07-06-2024 End: 64-49-3684BWWKRFJ, GROUP B STREP WITH SUSCEPTIBLITYCULTURE, GROUP B STREP WITH SUSCEPTIBLITY Lab Routine Third trimester Expected: 07/06/2024, Expires: 07/06/2025[facility] Work Phone: comment on above:Expected: 07/06/2024, Expires: 07/06/2025Start: 07-06-2024 End: 75-01-9047Olumnjm encounter cwxihawph15/23/2025 10:20 AM EST Routine [facility] [address] [place] [phone] Eldon Mccracken, DO [address] [place], [place] [address] [facility] OBStart: 07-06-2024 End: 07-54-7274Pstxqimcdivn / ancillary services pngnaiuxur30/23/2025 9:30 AM EST Ancillary Procedure [facility] [address] [place] [address] [facility] OBStart: 06-29-2024 End: 27-31-5183Krenjwq encounter kciiwfjuk06/16/2025 9:00 AM EST Routine [facility] [address] [place] [phone] Eldon Mccracken, DO [address] [place] [address] [facility]CP OBStart: 06-22-2024 End: 79-97-9274Elthbmq encounter kizxfxcsh12/09/2025 9:50 AM EST Routine [facility] [address] [place] [address] Marycarmen Thibodeaux PA [address] [place], [place] [address] [facility] OBStart: 06-08-2024 End: 70-28-0770WK for pregnancyUS OB SCAN FOR GROWTH Imaging Routine Excessive growth affecting management of , antepartum, single or unspecified fetus Expected: 06/08/2024 (Approximate), Expires: 06/08/2025NOKY Healthcare Work Phone: comment on above:Expected: 06/08/2024 (Approximate), Expires: 06/08/2025Start: 06-08-2024 End: 11-95-6745Nsuixip encounter /26/2024 10:10 AM EST Routine [facility] [address] [place] [phone] Eldon Mccracken DO [address] [place], [place] [phone] [facility] OBStart: 06-05-2024 End: 41-04-2968Uoyfhoivgeyp / ancillary services wxxnvypeil75/23/2024 10:30 AM EST Ancillary Procedure [facility] [address] [place], [place] [phone] [facility] OBStart: 05-24-2024 End: 24-09-1479UO for pregnancyUS OB SCAN FOR GROWTH Imaging Routine Excessive growth affecting management of , antepartum, single or unspecified fetus Expected: 05/24/2024 (Approximate), Expires: 05/24/2025[facility] Work Phone: comment on above:Expected: 05/24/2024 (Approximate), Expires: 05/24/2025Start: 05-24-2024 End: 45-86-5640Guyddie encounter procedureNOMS BCP OBComment on above:Arrived Start: 05-08-2024 End: 67-70-3712Wlkfcvb encounter easablsrs03/25/2024 10:30 AM EST Routine [facility] [address] [place] [address] Marycarmen Thibodeaux PA [address] [place], [place] [phone] [facility] OBStart: 04-17-2024 End: 14-40-1219CLT panel - Blood by Automated countCBC Lab Routine Diabetes mellitus screening Expected: 04/17/2024 (Approximate), Expires: 04/17/2025[facility] Work Phone: comment on above:Expected: 04/17/2024 (Approximate), Expires: 04/17/2025Start: 04-17-2024 End: 37-19-1275Anketihkeri of glucose 1 hour after glucose challenge for glucose tolerance testGlucose tolerance, 1 hour Lab Routine Diabetes mellitus screening Expected: 04/17/2024 (Approximate), Expires: 04/17/2025NOMS HealthcareComment on above:Expected: 04/17/2024 (Approximate), Expires: 04/17/2025Start: 04-17-2024 End: 19-67-7625Bnektvn encounter kahxtanxy72/04/2024 9:50 AM EST Routine [facility] [address] [place] [address] Eldon Mccracken DO [address] [place], [place] [address] [facility] BCP OBStart: 03-16-2024 End: 35-00-6227Oinvlki encounter dcrlvyoau21/03/2024 11:30 AM EDT Routine [facility] [place] [phone] Marycarmen Thibodeaux PA [address] [place], [place] [address] [facility] OBStart: 03-16-2024 End: 75-09-3639Xjzthtysvynt / ancillary services scrjhfboyh10/03/2024 10:30 AM EDT Ancillary Procedure [facility] [address] [place] [phone] [facility] OBStart: 02-17-2024 End: 54-64-5281Glkuf fetoprotein, maternalAlpha fetoprotein, maternal Lab Routine 17 weeks gestation of Expected: 02/17/2024 (Approximate), Expires: 02/16/2025NOKY HealthcareComment on above:Expected: 02/17/2024 (Approximate), Expires: 02/16/2025Start: 02-17-2024 End: 87-55-3490SP for pregnancyUS OB ANATOMY SINGLE W US OB CERVICAL LENGTH Imaging Routine Screening, , for anatomic survey Expected: 02/17/2024 (Approximate), Expires: 02/16/2025NOKY HealthcareComment on above: Expected: 02/17/2024 (Approximate), Expires: 02/16/2025Start: 02-13-2024 Influenza vaccinationInfluenza Vaccine (#1)NOM HealthcareStart: 2021 Hepatitis B Vaccines (1 of 3 - 19+ 3-dose series)Hepatitis B Vaccines (1 of 3 - 19+ 3-dose series)[facility]OM HealthcareStart: 90-48-5416Pssmnxuhy vaccinationFlu vaccine (Season Ended)[facility]: 62-35-7805Ktoecnhiddcbx (ACWY) vaccine (1 - 2-dose series)Meningococcal (ACWY) vaccine (1 - 2-dose series)[facility]: 48-33-4704Wxnoclkywjaqm B Vaccine (1 of 2 - Standard) Meningococcal B Vaccine (1 of 2 - Standard)[facility]OM HealthcareStart: 2018 Screening for Chlamydia trachomatisChlamydia screenMansfield Hospital: 85-23-5464MRA screeningHIV [facility]: 72-92-7135GEN Vaccines (1 - 3-dose series)HPV Vaccines (1 - 3-dose series)[facility] Start: 27-78-9557Zrsdbmz of varicella vaccinationVaricella Vaccines (1 of 2 - 13+ 2-dose series)[facility]: 54-72-0770FJC vaccine (1 - 2-dose series)HPV vaccine (1 - 2-dose series)[facility]: 2009 DTaP/Tdap/Td vaccine (1 - Tdap)DTaP/Tdap/Td vaccine (1 - Tdap)[facility]: 44-87-1497AMtS/Tdap/Td Vaccines (1 - Tdap)DTaP/Tdap/Td Vaccines (1 - Tdap)[facility] HealthcareStart: 11-40-2574Fsbnmmziv A vaccine (1 of 2 - 2-dose series)Hepatitis A vaccine (1 of 2 - 2-dose series)[facility]: 28-06-7147Wqnfhcw,Mumps,Rubella (MMR) vaccine (1 of 2 - Standard series) Measles,Mumps,Rubella (MMR) vaccine (1 of 2 - Standard series)[facility]: 38-91-4406UUV Vaccines (1 of 1 - Standard series)MMR Vaccines (1 of 1 - Standard series)[facility]: 13-99-6689Cvhbwnuay vaccine (1 of 2 - 2- dose childhood series)Varicella vaccine (1 of 2 - 2-dose childhood series)[facility]: 86-00-2826Liyec vaccine (1 of 3 - 4-dose series)Polio vaccine (1 of 3 - 4-dose series)[facility]: 72-44-9321Rcpzqklpn B vaccine (1 of 3 - 3-dose primary series)[place] vag[place] DNA [Presence] in Vaginal fluid by YUNIOR with probe detectionBucyrus [facility] Work Phone: Bacteria identified in Urine by CultureMemorial Health [facility] HospitalBacterial vaginosis associated bacterium 2 DNA [Presence] in Vaginal fluid by [facility]IOR with [facility] detectionPe[facility] Work Phone: CHLAMYDIA TRACHOMATIS (GENITO/STI)CHLAMYDIA TRACHOMATIS (GENITO/STI) Lab Routine 17 weeks gestation of Screen for STD (sexually transmitted disease) Vaginal discharge Ordered: 02/17/2024[facility] HealthcareComment on above:Ordered: 02/17/2024HLAMYDIA TRACHOMATIS (GENITO/STI) CHLAMYDIA TRACHOMATIS (GENITO/STI) Lab Routine Cyst of ovary, unspecified laterality Follow-up examOrdered: 12/21/2024[facility] HealthcareComment on above: Ordered: 5Cytology Cervical or vaginal smear or scraping studyPap Smear Pathology and Cytology Routine Well woman exam with routine gynecological exam Ordered: 02/17/2024[facility] Work Phone: comment on above:Ordered: 02/17/2024Megasphaera sp type 1 DNA [Presence] in Vaginal fluid by [facility] with [facility]Pe[facility] Work Phone: Neisseria gonorrhoeae DNA [Presence] in Unspecified specimen by YUNIOR with probe detectionNeisseria gonorrhea DNA probe, direct Lab Routine 17 weeks gestation of Screen for STD (sexually transmitted disease) Vaginal discharge Or[facility]: [facility]/2024[facility]: Ordered: 02/17/2024Neisseria gonorrhoeae DNA [Presence] in Unspecified specimen by YUNIOR with probe detectionNeisseria gonorrhea DNA probe, direct Lab Routine Cyst of ovary, unspecified laterality Follow-up exam Ordered: 12/21/2024[facility] HospitalComment on above:Ordered: 12/21/2024SURESWAB(R) ADVANCED VAGINITIS PLUS, TMASURESWAB(R) ADVANCED VAGINITIS PLUS, TMA Pathology and Cytology Routine 17 weeks gestation of Screen for STD (sexually transmitted disease) Vaginal discharge Ordered: 02/17/2024[facility] HospitalComment on above:Ordered: 02/17/2024SURESWAB(R) ADVANCED VAGINITIS PLUS, TMASURESWAB(R) ADVANCED VAGINITIS PLUS, TMA Pathology and Cytology Routine Cyst of ovary, unspecified laterality Follow-up exam Ordered: 12/21/2024[facility] Work Phone: comment on above:Ordered: 12/21/2024 Payers DatePayer CategoryPayerPolicy [id number]-[id number] [id number] 2023Medicaid2023Unknown [id number] ADVANTAGE [employer]VANTAGE xxxxxxxxxxx 2018-Present [phone] [address] [place], [place] [address]ykxawjsabzm [id number].3.322265.315 [id number] 2.16.840.1.370335.3.57[id number] 2.16.840.1.558007.3.57[id number] 2.840.1.593514.3.579.[id number] 2.840.1.434968.3.579.[id number] 2.840.1.026060.3.579.[id number] 2.840.1.108715.3.57[id number] 2.840.1.506376.3.579.[id number] 2.840.1.952007.3.579.[id number] 2.16840.1.639265.3.57[id number] 2.840.1.285756.3.579.2.[id number] 2.840.1.002070.3.579.[id number] 2.840.1.463963.3.57[id number] 2.16.840.1.777507.3.57[id number] 2.840.1.626102.3.579.[id number] 2.0.1.688130.3.579.2.[id number] 2.840.1.829315.3.579.2.278698-93-7918Ufjcwlu0003454 2.840.1.667994.3.57[id number] 2.0.1.588838.3.579.2.[id number] 2.0.1.890752.3.579.2.881933-20-5884Zwlkfxl2403905 2.0.1.274424.3.579.[id number] 2..1.862112.3.57[id number] 2.0.1.153686.3.57[id number] 2..1.688144.3.579.[id number] 2.0.1.702135.3.579.[id number] 2..1.299344.3.579.2.668 [id number] Health InsuranceC[facility] [id number] 2.0.1.033022.3.579.2.531 Social History DateTypeDetailFacilityStart: 40-80-9540Zorshsl smoking status NHISNever smoker [place], [place]: 67-07-1592Bdicuvd intakeCurrent non-drinker of alcohol (finding)[facility], [place]Start: 26-63-4382Orc Assigned At BirthNot on fileGalion Community Hospital, Start: 07-19-2024 End: 08-98-4434Xdm Assigned At [facility] InGaugeIt Other Tobacco smoking statusNo Smoking Status EnteredUniversity Hospitals Geneva Medical Centertart: 75-56-2980Swa [facility]: 08-20-2023 End: 18-14-1731Yofgwkp smoking status NHISUnknown if ever smokedAdams County Regional Medical Centertart: 38-86-7487AxmzntcsfVEQM HealthcareStart: 07-19-2024 End: 61-80-1307Rgdgaac of Social functionNOKY HealthcareStart: 03-99-2740Ydw Female (finding)[facility] Cent[facility]art: 18-54-0822MtxGiaiwkMHKZ Healthcare Functional Status DoqkZtnmujahfdZnpbjwXcxfcxod53-97-7198Agrstob Health Questionnaire 2 item (PHQ- 2) [Reported][facility] HospitalLqyxffdlzj22-56-2522Ccubzfnpdw StatusN/[facility] Clinical Notes 04-08-2021 to 12-21-2024 Note Date & ZsxrJzjvArvmgzol16-83-6233 History of Present illness Narrative* Carole Jade LPN - 12/21/2024 9:10 AM EDT Reason for Appointment: Patient ID: Maribel Velez is a 24 y.o. female who presents for ER Follow-up Patient presents today for Consult appointment. MEDICATIONS No current outpatient medications ALLERGIES Allergies Allergen Reactions Red Dye Other Reaction(s): Swelling of Lip/Tongue/Throat Red Dye #40 (Allura Red) Rash Other Reaction(s): Unknown PROBLEMS Active Ambulatory Problems Diagnosis Date Noted No Active Ambulatory Problems Resolved Ambulatory Problems Diagnosis Date Noted 24 weeks gestation of ([facility]) 04/17/2024 No Additional Past Medical History HISTORY [...] Respiratory: Negative. Cardiovascular: Negative. Gastrointestinal: Negative. Genitourinary: Positive for pelvic pain. Musculoskeletal: Negative. Skin: Negative. Neurological: Negative. All [...] nursing note reviewed. Exam conducted with a combination worker present. Vitals: Estimated body mass index is 21.8 kg/m as calculated from the following: Height as of 04/04/20: 5' 4.75 . Weight as of 04/04/20: 130 lb. BP: 116/74 No LMP recorded. ASSESSMENT & PLAN ICD-10-CM 1. Cyst of ovary, unspecified laterality N83.209 2. Follow-up exam Z09 Patient presents to office today for ER follow up ovarian cyst. Discussed possibilities with patient and that if pain returns to reach out to office and US could be ordered. Obtained vaginal culturestoday and urine test all came back negative/WNL. Patient to ensure she is scheduled for annual examand contact office PRN. Documented by Carole Jade LPN on behalf of: Eldon Mccracken DO documented in this encounterSaint Luke's East HospitalLemshdiwsy72-50-3245 History of Present illness Narrative* MEDHAT Conde - 09/20/2024 1:20 PM EDT Reason for Appointment: Patient ID: Maribel Velez is a 24 y.o. female who presents for 6wk PP Patient presents today for Post Follow Up appointment. MEDICATIONS No current outpatient medications ALLERGIES Allergies Allergen Reactions Red Dye Other Reaction(s): Swelling of Lip/Tongue/Throat Red Dye #40 (Allura Red) Rash Other Reaction(s): Unknown PROBLEMS Active Ambulatory Problems Diagnosis Date Noted No Active Ambulatory Problems Resolved Ambulatory Problems Diagnosis Date Noted 24 weeks gestation of 04/17/2024 No Additional Past Medical History HISTORY [...] Weight as of 04/04/20: 130 lb. BP: 110/82 No LMP recorded. ASSESSMENT & PLAN ICD-10-CM 1. 6 weeks follow-up Z39.2 Post Follow Up: Patient is doing well but has complaints of hemmorhoids. Patient presents today for 6 week visit. Patient is s/p Vaginal delivery. Patient states depression but denies suicidal and homicidal ideations. All options were discussed with the patient regarding control and patient desires oral contraception . Follow Up: Patient is to return for annual unless needed otherwise. Documented by MEDHAT Conde on behalf of: MEDHAT Conde documented in this encounterSaint Luke's East HospitalLpdvalxhap97-38-1964 History of Present illness Narrative* MEDHAT Conde - 07/27/2024 1:40 PM EST Reason for Appointment: Patient ID: Maribel Velez is a 23 y.o. female who presents for Routine Visit Patient presents today for Return OB appointment. MEDICATIONS Current Outpatient Medications Medication Instructions magnesium oxide (MAG-OX) 400 mg, Oral, Daily Mvcpepxc-Lxl-Nr-FA ( 1 + IRON PO) Take by [...] behalf of: MEDHAT Conde documented in this encounterSaint Luke's East HospitalUtzfbddszj07-75-6583 History of Present illness Narrative* Carole Jade LPN - 07/20/2024 10:30 AM EST Reason for Appointment: Patient ID: Maribel Velez is a 23 y.o. female who presents for Routine Visit Patient presents today for Return OB appointment. MEDICATIONS Current Outpatient Medications Medication Instructions magnesium oxide (MAG-OX) 400 mg, Oral, Daily Ejzcpmsp-Piz-Fk-FA ( 1 + IRON PO) Take by [...] nursing note reviewed. Exam conducted with a combination worker present. Vitals: Estimated body mass index is [...] of: Eldon Mccracken DO documented in this encounterSaint Luke's East HospitalYbzfzwksja96-02-2111 History of Present illness Narrative* MEDHAT Conde - 07/13/2024 9:50 AM EST Reason for Appointment: Patient ID: Maribel Velez is a 23 y.o. female who presents for Routine Visit Patient presents today for Return OB appointment. MEDICATIONS Current Outpatient Medications Medication Instructions cephalexin (KEFLEX) 500 mg, Oral, 2 times daily magnesium oxide (MAG-OX) 400 mg, Oral, Daily Jnqnkxvp-Ope-Kj-FA ( 1 + IRON PO) Take by [...] 04/04/20: 5' 4.75 . Weight as of 10/22/20: 130 lb. BP: 124/68 Patient's last menstrual [...] behalf of: MEDHAT Conde documented in this encounterSaint Luke's East HospitalMslufufuxs16-76-4714 History of Present illness Narrative* Carole Jade LPN - 07/06/2024 10:10 AM EST Reason for Appointment: Patient ID: Maribel Velez is a 23 y.o. female who presents for Routine Visit Patient presents today for Return OB appointment. MEDICATIONS Current Outpatient Medications Medication Instructions cephalexin (KEFLEX) 500 mg, Oral, 2 times daily magnesium oxide (MAG-OX) 400 mg, Oral, Daily Lcujcrlk-Pnu-Du-FA ( 1 + IRON PO) Take by [...] nursing note reviewed. Exam conducted with a combination worker present. Vitals: Estimated body mass index is [...] of: Eldon Mccracken DO documented in this encounterSaint Luke's East HospitalRsjvenhqyp81-36-3454 History of Present illness Narrative* Carole Jade LPN - 06/29/2024 9:00 AM EST Reason for Appointment: Patient ID: Maribel Velez is a 23 y.o. female who presents for Routine Visit Patient presents today for Return OB appointment. MEDICATIONS Current Outpatient Medications Medication Instructions magnesium oxide (MAG-OX) 400 mg, Oral, Daily Ftedkpcn-Jpt-Nx-FA ( 1 + IRON PO) Take by [...] nursing note reviewed. Exam conducted with a combination worker present. Vitals: Estimated body mass index is [...] of: Eldon Mccracken DO documented in this encounterSaint Luke's East HospitalDvnbzmatlt39-89-3494 History of Present illness Narrative* MEDHAT Conde - 06/22/2024 9:50 AM EST Reason for Appointment: Patient ID: Maribel Velez is a 23 y.o. female who presents for Routine Visit Patient presents today for Return OB appointment. MEDICATIONS Current Outpatient Medications Medication Instructions magnesium oxide (MAG-OX) 400 mg, Oral, Daily Ryltpbtz-Zmd-Kl-FA ( 1 + IRON PO) Take by [...] nursing note reviewed. Exam conducted with a combination worker present. Vitals: Estimated body mass index is [...] behalf of: MEDHAT Conde documented in this encounterSaint Luke's East HospitalCsfnwkdjji19-14-4090 History of Present illness Narrative* Vicki Nickerson LPN - 06/08/2024 10:10 AM EST Reason for Appointment: Patient ID: Maribel Velez is a 23 y.o. female who presents for Routine Visit Patient presents today for Return OB appointment. MEDICATIONS Current Outpatient Medications Medication Instructions magnesium oxide (MAG-OX) 400 mg, Oral, Daily Ibmeauox-Hyh-Og-FA ( 1 + IRON PO) Take by [...] nursing note reviewed. Exam conducted with a combination worker present. Vitals: Estimated body mass index is [...] of: Eldon Mccracken DO documented in this encounterSaint Luke's East HospitalMxarbcxxcy85-45-2540 History of Present illness Narrative* Vicki Nickerson LPN - 05/24/2024 11:10 AM EST Reason for Appointment: Patient ID: Maribel Velez is a 23 y.o. female who presents for Routine Visit Patient presents today for Return OB appointment. MEDICATIONS Current Outpatient Medications Medication Instructions albuterol (ProAir Digihaler) 90 mcg/act breath-activated inhaler (w/ sensor) 2 puffs, Inhalation, Every 4 hours PRN magnesium oxide (MAG-OX) 400 mg, Oral, Daily Aoeqrdwq-Mia-Oo-FA ( 1 + IRON PO) Oral ALLERGIES [...] nursing note reviewed. Exam conducted with a combination worker present. Vitals: Estimated body mass index is [...] of: Eldon Mccracken DO documented in this encounterSaint Luke's East HospitalQsxurcxctu09-94-0039 History of Present illness Narrative* MEDHAT Conde - 05/08/2024 10:30 AM EST Reason for Appointment: Patient ID: Maribel Velez is a 23 y.o. female who presents for Routine Visit Patient presents today for Return OB appointment. MEDICATIONS Current Outpatient Medications Medication Instructions albuterol (ProAir Digihaler) 90 mcg/act breath-activated inhaler (w/ sensor) 2 puffs, Inhalation, Every 4 hours PRN magnesium oxide (MAG-OX) 400 mg, Oral, Daily Koxyefft-Anj-Du-FA ( 1 + IRON PO) Oral ALLERGIES [...] behalf of: MEDHAT Conde documented in this encounterSaint Luke's East HospitalHqxuvocggq37-30-0681 History of Present illness Narrative* Carole Jade, COMMERCIAL BAKING TEACHER - 04/17/2024 9:50 AM EST Reason for Appointment: Patient ID: Maribel Velez is a 23 y.o. female who presents for Routine Visit Patient presents today for Return OB appointment. MEDICATIONS Current Outpatient Medications Medication Instructions albuterol (ProAir Digihaler) 90 mcg/act breath-activated inhaler (w/ sensor) 2 puffs, Inhalation, Every 4 hours PRN magnesium oxide (MAG-OX) 400 mg, Oral, Daily Lklxihow-Vxx-Nv-FA ( 1 + IRON PO) Oral ALLERGIES [...] nursing note reviewed. Exam conducted with a combination worker present. Vitals: Estimated body mass index is [...] of: Eldon Mccracken DO documented in this encounterSaint Luke's East HospitalMwkkbnrorw15-41-5236 History of Present illness Narrative* MEDHAT Conde - 03/16/2024 11:30 AM EDT Reason for Appointment: Patient ID: Maribel Velez is a 23 y.o. female who presents for Routine Visit Patient presents today for Return OB appointment. MEDICATIONS Current Outpatient Medications Medication Instructions albuterol (ProAir Digihaler) 90 mcg/act breath-activated inhaler (w/ sensor) 2 puffs, Inhalation, Every 4 hours PRN docusate sodium (COLACE) 100 mg, Oral, 2 times daily PRN magnesium oxide (MAG-OX) 400 mg, Oral, Daily Jnsetmln-Cui-Fi-FA ( 1 + IRON PO) Oral ALLERGIES [...] behalf of: MEDHAT Conde documented in this encounterSaint Luke's East HospitalUbvafcnaqo18-37-0734 History of Present illness Narrative* MEDHAT Conde - 02/17/2024 10:30 AM EDT Reason for Appointment: Patient ID: Maribel Velez is a 23 y.o. female who presents for Routine Visit Patient presents today for Return OB appointment. MEDICATIONS Current Outpatient Medications Medication Instructions magnesium oxide (MAG-OX) 400 mg, Oral, Daily Hpqcoumk-Qua-Eq-FA ( 1 + IRON PO) Oral ALLERGIES [...] behalf of: MEDHAT Conde documented in this encounterSaint Luke's East HospitalZnxadknyzv26-52-8724 Evaluation + Plan note Extracted from:Title:ED NoteAuthor:Ana Braxton DO ADate:02/13/22 Acute hemorrhoid (K64.9: Uns pecified hemorrhoids) Orders: [...] should change or worsen. Diagnosis: Rectal bleeding [facility]09-02-2022 Hospital Discharge instructions Patient Education 02/13/2022 07:28:37 Rectal Bleeding, Ammy-cy-Tzol Rectal Bleeding Rectal bleeding is when blood [...] 02/10/2012 Document Revised: 05/13/2018 Document Reviewed: 07/26/2016 [email or web address] Patient Education 2020 [employer]. 02/13/2022 07:28:37 Hemorrhoids, Fdqe-ct-Nexo Hemorrhoids Hemorrhoids are swollen veins that may [...] 3 times a day. General instructions Take vwgs-xmb-qbbkgry and prescription medicines only as told by [...] 03/09/2009 Document Revised: 06/08/2019 Document Reviewed: 10/20/2018 [email or web address] Patient Education 2020 [employer] Follow Up Care 02/13/2022 06:18:09 With:Yu GREENE Address: [facility] [address] [place] [address]- Business (1) When:02/16/2022 07:21:18 With:CAITIE MARSHALL Address:Unknown When:Within 3 Day(s) [facility]05-08-2022 Hospital Discharge instructions Patient Education 10/19/2021 17:18:27 Viral Respiratory Infection, Fvxm-Pw-Cizf Viral Respiratory Infection A viral respiratory infection [...] at home: Managing pain and congestion Take vvab-yyl-qowbwkr and prescription medicines only as told by [...] and water are not available, 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 Avoid contact with people who are sick [...] 05/13/2009 Document Revised: 06/08/2019 Document Reviewed: 07/11/2018 [email or web address] Patient Education 2020 [employer]. Follow Up Care 10/19/2021 17:07:38 With:Michelle Mata Address:Unknown When:10/22/2021 [facility]04-06-2022 Evaluation note* Encounter Date Diagnosis Assessment Notes Treatment Notes Treatment Clinical Notes Sep, Rectal bleeding (ICD-10 - K62.5) PATIENT STATES THIS HAPPENS EVERY COUPLE OF MONTHS Sep,bdominal pain (ICD-10 - R10.9)PATIENT DID HAVE THIS LAST NIGHT ON THE RIGHT SIDE UNDER HER RIBS PATIENT DOES CONTINUE ON THE MEDICATION WILL ORDER SOME TESTING Sep,2Diarrhea (ICD-10 - R19.7) [employer] Other 02-15-2022 Evaluation note* Encounter Date Diagnosis Assessment Notes Treatment Notes Treatment Clinical Notes Jul, Blood in stool (ICD-10 - K92.1) Jul,bdominal pain (ICD-10 - R10.9) [employer] Other 01-12-2022 Evaluation note* Encounter Date Diagnosis Assessment Notes Treatment Notes Treatment Clinical Notes Jun, Diarrhea (ICD-10 - R19.7) Jun,ectal bleeding (ICD-10 - K62.5) PATIENT ENCOURAGED TO HAVE A COLONOSCOPY START ABOVE MEDICATION Jun,bdominal pain (ICD-10 - R10.9) [employer] Other 10-26-2021 Evaluation note* Encounter Date Diagnosis Assessment Notes Treatment Notes Treatment Clinical Notes Mar, Vaginal discharge (ICD-10 - N89. 8) Mar,High risk bisexual behavior (ICD-10 - Z72.53) Culture obtained. Treatment given based on history. Discussed safe sex practices. Treatment plan isbased off symptoms . Will contact you even if results are negative which may take up to a week to get back. [employer] Other Chiyr complaint+Reason for visit Narrative* Chief Complaint Cough, sinus congest ion Reason for Visit Contact with and (mckee spected) exposure to covid-19 Sore throat [facility] Work Phone: Evaluation + Plan note No data available for this section [facility] CenterEvaluation noteNo InformationNort InGaugeIt Other Evaluation noteNo assessment information available [facility] Work Phone: Evaluation note* Diagnosis Onset Date Resolution Status Contact with and (suspected) exposure to covid-19 noneactiveSore throatnoneactive [facility] Work Phone: Evaluation note* Diagnosis 20 weeks [...] [facility]* Diagnosis Constipation, unspecified constipation type- Primary 6 weeks follow-up documented in this encounter [facility]* Diagnosis Cyst of ovary, unspecified laterality Follow-up exam Unspecified follow-up examination documented in this encounter [facility] HealthcareHistory general Narrative - Reported* Type Description Date Medical History IBS Medical HistoryConstipationMedical HistoryallergiesSurgical Historyright torn lateral meniscus [employer] Other Hospital Discharge instructions No data available for this section [facility] CenterProgress note No data available for this section [facility] Summary Purpose Family History Relationship Condition Age at Onset Recorded Date/T patrice grandparent Cardiovascular disease Unknown grandparentMalignant neoplasm of thyroid glandUnknownNot SpecifiedMalignant neoplasm of ovaryUnknownfatherAsthmaUnknownbrotherAsthmaUnknown Relationship Condition Age at Onset Recorded Date/T patrice grandparent Cardiovascular disease Unknown grandparentMalignant neoplasm of thyroid glandUnknownmotherMalignant neoplasm of ovaryUnknownfatherAsthmaUnknownbrotherAsthmaUnknownfatherHeart diseaseUnknown motherHypertensionUnknownFamily history of mental disorderUnknownMalignant neoplasmUnknown Advance Directives TypeDate RecordedPatient RepresentativeExplanationAdvance Directives and Living WillPower of Ip Counsel Advance Directive Response Recorded Date/ Time Advance Directives No April 16, 2021 2:28pm Advance Directive Response Recorded Date/ Time Advance Directives No August 19 3:12pm Advance Directive Response Recorded Date/ Time Advance Directives No August 19 2:12pm Assessments Diagnosis Injury of right knee, initial encounter Chief Complaint and Reason for Visit Chief Complaint Dysuria Vaginal odor Additional Source Comments INFORMATION SOURCE (unrecogn ized section and content) DATE CREATED AUTHOR 08/20/2018 [facility] DATE CREATED AUTHOR AUTHOR'S ORGANIZ ATION 11/18/2019 [facility] DATE CREATED AUTHOR AUTHOR'S ORGANIZ ATION 02/17/2022 [facility] DATE CREATED AUTHOR AUTHOR'S ORGANIZ ATION 07/13/2022 [facility] DATE CREATED AUTHOR AUTHOR'S ORGANIZ ATION 09/02/2024 [facility] DATE CREATED AUTHOR AUTHOR'S ORGANIZ ATION 12/24/2024 [facility] DATE CREATED AUTHOR AUTHOR'S ORGANIZ ATION 12/25/2024 [facility] EPIC REASON FOR VISIT (unrecogniz ed section and content) ReasonCommentsRoutine FufgrQrcweaMsejyvua4hu PPReasonCommentsER Follow-up Care Team (unrecognized sect ion and content) Team Status: Inactive Member Role Status Dates Lucia Thorne MD RES Attending Provider Active Team Status: Active Member Role Status Dates NON STAFF Primary Care Provider Active Team Status: Inactive Member Role Status Dates NON STAFF Primary Care Provider Active Start: March 08, 2024 End: March 08jyoti Bustamante , APRNAttending ProviderActiveStart: March 08, 2024 End: March 08, 2024Team MemberRelationshipSpecialtyStart DateEnd Date Unallocated, Shari Heredia MD [address] [facility] [place] [address] PCP - [facility]08/12/23Team MemberRelationshipSpecialtyStart DateEnd Date Unallocated, Noms MD Yan [facility] [facility] [place] [address] PCP - [facility]08/12/23Team MemberRelationshipSpecialtyStart DateEnd Date Unallocated, Shari Heredia MD [address] [place] [address] PCP - [facility]08/12/23Team MemberRelationshipSpecialtyStart DateEnd Date Unallocated, Noms MD Yan [facility] [facility] [place] [address] PCP - [facility]08/12/23Team MemberRelationshipSpecialtyStart DateEnd Date Unallocated, Nomalpa Heredia MD [address] [facility] [place] [address] PCP - [facility]08/12/23Team MemberRelationshipSpecialtyStart DateEnd Date Unallocated, Nomalpa Heredia MD [address] [facility] [place] [address] PCP - [facility]08/12/23Team MemberRelationshipSpecialtyStart DateEnd Date Unallocated, Shari Heredia MD [address] [place] [address] PCP - [facility]08/12/23Team MemberRelationshipSpecialtyStart DateEnd Date Unallocated, Noms ProviderMD [address] [place] [address] PCP - [facility]08/12/23Team MemberRelationshipSpecialtyStart DateEnd Date Unallocated, Noms ProviderMD [address] [place] [address] PCP - [facility]08/12/23Team MemberRelationshipSpecialtyStart DateEnd Date Unallocated, Noms ProviderMD [address] [place] [address] PCP - [facility]08/12/23Team MemberRelationshipSpecialtyStart DateEnd Date Unallocated, Noms MD Yan [address] [place] [address] PCP - [facility]08/12/23Team MemberRelationshipSpecialtyStart DateEnd Date Unallocated, Noms ProviderMD [address] [place] [address] PCP - [facility]08/12/23Team MemberRelationshipSpecialtyStart DateEnd Date Unallocated, Noms ProviderMD [address] [place] [address] PCP - [facility]08/12/23Team MemberRelationshipSpecialtyStart DateEnd Date Unallocated, Noms MD Yan [address] [place] [address] PCP - [facility]08/12/23Te MemberRelationshipSpecialtyStart DateEnd Date Unallocated, Noms MD Yan [address] [place] [address] PCP - [facility]08/12/23Team MemberRelationshipSpecialtyStart DateEnd Date Unallocated, Shari Heredia MD [address] [facility] [place] [address] PCP - [facility]08/12/23Team MemberRelationshipSpecialtyStart DateEnd Date Unallocated, Shari Heredia MD [address] [place], [place] [address]Opal [place] [address] PCP - [facility]08[facility] Team Status: Inactive Member Role Status Dates Eldon Mccracken DO Attending Provider Active Start : August 01, 2024 End: August 01, 2024Team MemberRelationshipSpecialtyStart DateEnd Date Unallocated, Shari Heredia MD [facility] [address] [facility] [place] [address] [facility] - [facility]08/12/23Team MemberRelationshipSpecialtyStart DateEnd Date Unallocated, Shari Heredia MD [facility] [place] [address] [facility] - [facility]08/12/23 Goals (unrecognized section and content) Goals may [...] BE BASED ON THE PRIMARY CLINICAL RECORDS. [facility] [employer] [facility]. provides no warranty or guarantee of the accuracy or completeness of information in this document.
--- OUTSIDE RECORDS SUMMARY | 2025-04-26 19:02 | XMS_ITS | Encounter Summary ---
Author Organization [facility] Address [address] [place] [address] Care Team Providers Care Retina Subspecialist Name Role Phone Unallocated, Noms Provider Primary Care Provi fatuma Encounter Details DateTypeDepartmentCare Team (Latest Contact Info)Ywxnoyuiahk47/16/2024Clinisync Result Encounter [facility] External Department Unsolicited Keith Mccracken, DO [address] [place] [address] Social History Tobacco UseTypesPacks/DayYears UsedDateSmoking Tobacco: Never AssessedPHQ-2 AnswerDate RecordedPatient Health Questionnaire-2 Ockqg057 CommentsYesSex and Gender InformationValueDate RecordedSex Assigned at BirthNot on fileLegal QudTbxbif88/15/2023 6:49 PM EDTGender IdentityNot on fileSexual OrientationNot on filedocumented as of this encounter Functional Status * Over the past 2 weeks, how often have you been bothered by any of the following problems?QuestionAnswerDate of AssessmentAuthorLittle interest or pleasure in doing thingsNot at all09/07/2024 2:40 PM Marycarmen Coe LPN Feeling down, depressed, or hopelessNot at all09/07/2024 2:40 PM Marycarmen Coe LPNPatient Health Questionnaire-2 Wugcz698 2:40 PM Marycarmen Coe LPN documented as of this encounter Plan of Treatment Not on file documented as of this encounter Procedures Procedure NamePriorityDate/TimeAssociated DiagnosisCommentsUS OB INCOMPLETE NVNDLKR0004/29/2024 6:21 AM EST documented in this encounter Results * US OB INCOMPLETE ANATOMY (04/29/2024 6:21 AM EST)Anatomical RegionLaterality ModalityOtherSpecimen (Source)Anatomical Location / LateralityCollection Method / VolumeCollection TimeReceived Time04/29/2024 6:21 AM EST Narrative 04/29/2024 6:24 AM EST [facility] ?[address] ? [place], [facility] ? Ultrasound Report ? Signed ? Patient: MARIBEL WEST ?MR#: [id number] ?? : 2000 ?Acct:[id number] ?? Age/Sex: 23 / F ?ADM Date: 04/28/24 ?? Loc: US ? Attending Dr: Keith Mccracken D.O. ? Ordering Physician: Keith Mccracken D.O. ?? Date of Service: 04/28/24 ?? Procedure(s): US OB incomplete anatomy ?? Accession Number(s): [id number] ? cc: Keith Mccracken D.O.; Physician,Non-Staff MSusana ? [facility] ? [address] [place] [address] ? [place] [address] ? Patient Name: ?? MARIBEL WEST ? MRN: [facility]:[id number] ? date: 2000 ?Sex: F ?? Assigned Patient Location: US ?? Current Patient Location: ? Accession/Order Number: [id number] ?? Exam Date: 04/28/2024 ??10:30 ?Report Date: 04/29/2024 ??06:21 ? At the request of: ?? KEITH ??CHRYSTAL ? Procedure: ??US OB incomplete anatomy ? EXAM: US OB incomplete anatomy ? HISTORY: Follow Up Ultrasound Of Anatomy ? COMPARISON: Ultrasound OB anatomy 03/16/2024 ? TECHNIQUE: Transabdominal ultrasound ? FINDINGS: ?? Heart rate: 134 bpm ?? Presentation: Cephalic ?? Anatomy: Four-chamber heart and cardiac outflow tracts adequately seen without ? appreciable abnormality. ? GA: 26 weeks 2 days ?? WYATT: 2024 ? US/US OB incomplete anatomy ?? IMPRESSION: ? 1. Single live intrauterine . ?? 2. Adequate visualization of the cardiac outflow tracts; no appreciable ?? abnormality. ? Electronically authenticated by: SUGAR ??MIGUE ?? Date: 04/29/2024 ??06:21 ? Dictated By: ?Sugar Levin M.D. ? Signed By: ?04/29/2424 ? DD/ 0 ? TD/TT: ? Wellness Guide: Procedure Note Radiology, Radiologist, MD - 04/29/[address] [address] Ultrasound Report Signed Patient: MARIBEL WEST MMR#: [id number] : 2000Acct:[id number] Age/Sex: 23 / FADM Date: 04/28/24 Loc: US Attending Dr: Keith Mccracken D.O. Ordering Physician: Keith Mccracken D.O. Date of Service: 04/28/24 Procedure(s): US OB incomplete anatomy Accession Number(s): [id number] cc: Keith Mccracken D.O.; Physician,Non-Staff Jeremy The [address] [address] Patient Name: MARIBEL WEST MRN: [facility]:[id number] date: 2000 Sex: F Assigned Patient Location: US Current Patient Location: Accession/Order Number: [id number] Exam Date: 04/28/2024 10:30 Report Date: 04/29/2024 06:21 At the request of: KEITH MCCRACKEN Procedure: US OB incomplete anatomy EXAM: US OB incomplete anatomy HISTORY: Follow Up Ultrasound Of Anatomy COMPARISON: Ultrasound OB anatomy 03/16/2024 TECHNIQUE: Transabdominal ultrasound FINDINGS: Heart rate: 134 bpm Presentation: Cephalic Anatomy: Four-chamber heart and cardiac outflow tracts adequately seenwithout appreciable abnormality. GA: 26 weeks 2 days WYATT: 2024 US/US OB incomplete anatomy IMPRESSION: 1. Single live intrauterine . 2. Adequate visualization of the cardiac outflow tracts; no appreciable abnormality. Electronically authenticated by: SUGAR LEVIN Date: 04/29/2024 06:21 Dictated By: Sugar Levin M.D. Signed By:04/29/24623 DD/ 0 TD/TT: Wellness Guide: Authorizing ProviderResult TypeResult StatusCoreyg Mccracken DOCLINISYNC IMAGINGFinal Result documented in this encounter Visit Diagnoses Not on filedocumented in this encounter Care Teams Team MemberRelationshipSpecialtyStart DateEnd Date Unallocated, Noms Provider, [address] [place] [address] PCP - GeneralFamily Medicine08/12/23documented as of this encounter
--- OUTSIDE RECORDS SUMMARY | 2025-04-26 19:02 | XMS_ITS | Patient Health Record ---
Author Organization [employer] [facility] [employer] Address [address] [place] [address] Care Team Providers Care Filemaker Developer Name Role Phone Dr. Tru Duncan Primary Care Provider [phone] Margaret Alatorre Unavailable [phone] Aleta Rizvia Unavailable [phone] Maria Victoria Rodriguez Unavailable [phone] Allergies Allergen (clinical drug ingredient) Drug/Non Drug Allergy documented on EMR Reaction Allergy Type Onset Date Status red dye (uncoded)UnknownAllergyActive Reason For Referral No Information Medications Medication SIG (Take, Route, Frequency, Duration) Notes Start Date End Date Status Hair Skin and Nails Formula - Tablet as directed Orally UnknownQUEtiapine Fumarate 25 MG TabletTAKE 1 TABLET BY MOUTH EVERY DAY AT BEDTIME FOR 30 DAYSUnknownLatuda 20 MG TabletTAKE 1 TABLET BY MOUTH EVERY DAY IN THE EVENING WITH FOODUnknownhydrOXYzine Pamoate 25 MG Capsule1 capsule for anxiety and bedtime Orally four times a day as neededUnknowncarBAMazepine 200 MG TabletTAKE 1 TABLET BY MOUTH EVERY DAY AT NIGHTUnknown Immunizations Vaccine Route Administration Date Status Comme nts HPV - Gardasil 9 IM Intramuscular 03/28/2015 Administered Meningococcal (MENACTRA)IM Maelkymcoraye25/15/2015dministeredTDAPIM Dotwwlmrseahz76/15/2015dministered Social History Tobacco Use: Social History Observation Description Date Details (start date - stop date) Unknown Social History GeneralSocial InfoQuestionAnswerNotesTransition of Care:ER//hospital since last office visit?Yes, report on fileFremont HospitalDepression Screening (PHQ-9):Little interest or pleasure in doing thingsNot at allFeeling down, depressed, or hopelessSeveral daysTrouble falling or staying asleep, or sleeping too muchNearly every dayFeeling tired or having little energyNearly every day Poor appetite or overeatingSeveral daysFeeling bad about yourself-or that you are a failure or have let yourself or your family downNot at allTrouble concentrating on things, such as reading the newspaper or watching television More than half the daysMoving or speaking so slowly that other people could have noticed. Or the opposite being so fidgetyor restless that you have been moving around a lot more than usualNearly every dayThoughts that you would be better off , or of hurting yourself in some wayNot at allTotal Pnrsu92Ldwadqjnoswdw Moderate DepressionSubstance abuse/mental health issues of patient/familyPatient -Caffeine Use, OtherMarijuanaAbility to understand healthcare/treatmentPatient: FairTobacco Screen:Are you a:Uses tobacco in other formsSocial/Support Concerns: Patient:NoAlcohol Screening:Did you have a drink containing alcohol in the past year?Yes? How often did you have a drink containing alcohol in the past year? Monthly or less (1 point)? How many drinks did you have on a typical day when you were drinking in the past year?1 or 2 (0 points)? How often did you have six or more drinks on one occasion in the past year?Never (0 points)Points1 InterpretationNegativeBehaviors affecting healthPoor/Risky Behaviors:Second Hand Smoke-Communication Barrier:Language Barrier?:NoSection Notes: Vapes Vapes Problems Problem Type SNOMED Code ICD Code Onset Dates Problem Status W/U Status Risk Notes Problem Severe manic bipolar I disorder without psychotic features (842961) Bipolar I disorder, current episode manic, Severe (F31.13) ActiveconfirmedProblemBipolar affective disorder, currently manic, severe, with psychosis (751205614)Bipolar disorder, current episode manic severe with psychotic features (F31.2)ActiveconfirmedProblemPost traumatic stress disorder (61028944)Post traumatic stress disorder (F43.10)Activeconfirmed Encounters Encounter Location Date Provider Diagnosis [facility] [address] [facility] [place] [address] 03/19/2025 Tru Duncan Cracked tooth K03.81 ; Encounter for dental examination and cleaning with abnormal findings Z01.21 and Disturbances in tooth eruption K00.6 [facility] [address] [place] [address] 04/11/2025 Marcie Rizvi Other dental procedu re status Z98.818 ; Encounter for dental examination and cleaning with abnormal findings Z01.21 ; Acute gingivitis, plaque induced K05.00 and Dental caries on pit and fissure surface penetrating into dentin K02.52 [facility] [address] [facility] [place] [address] 03/28/2025 Tru Duncan Dental caries on pit and fissure surface penetrating into dentin K02.52 Assessments Encounter Date Diagnosis (ICD Code) Assessment Notes Treatment Notes Treatment Clinical Notes Section Notes 03/19/2025 Cracked tooth (ICD-10 - K03.81) 03/28/2025Dental caries on pit and fissure surface penetrating into dentin (ICD- 10 - K02.52)04/11/2025Other dental procedure status (ICD-10 - Z98.818)04/11/2025 Encounter for dental examination and cleaning with abnormal findings (ICD-10 - Z01.21)03/19/2025Encounter for dental examination and cleaning with abnormal findings (ICD-10 - Z01.21)03/19/2025Disturbances in tooth eruption (ICD-10 - K00.6)04/11/2025ute gingivitis, plaque induced (ICD-10 - K05.00)04/11/2025 Dental caries on pit and fissure surface penetrating into dentin (ICD-10 - K02.52) Plan Of Treatment Next Appt Details Provider Name:Tru Duncan, 0 08/21/2025 11:30:00 AM, [address] [place], [address], Provider Name:Tru Duncan, 0 08/28/2025 11:30:00 AM, [place], [address], Provider Name:Marcie Rizvi , 10/31/2025 01:30:00 PM, [address], [place], [address], Insurance Providers Payer Name Payer Address Payer Phone Subscriber Number Group Number Insured Name Patient Relationship to Insured Coverage Start Date Coverage End Date z[employer]-termed 07/14/22 [address] [place] [address] [id number] WESTELENA Sutherlandelf - patient is the ptzcadc30/zAnthem [facility] Medicaid-termed 07/14/22[address] [place] [phone] ELENA WESTelf - patient is the [id number] MedicaidPO [address] [place] [id number], STEPHANIESelf - patient is the fevdnkv8007/15/2022zMEDICAID CFC after PARAMOUNT- termed 07/14/22[address] [place] [id number] ELENA WESTelf - patient is the [id number] CFC after [place] BCBS-termed 07/14/22[address] [place] [phone] [id number], STEPHANIESelf - patient is the fiyeeqf4303/14/2022 07/14/2022Wrap CFC [place] BCBSP[address] [place] [phone] [id number], STEPHANIESelf - patient is the vmrfwrv2807/15/2022zBH [employer]AGE-termed 07/14/22[address] [place] [phone] [id number], STEPHANIESelf - patient is the nxtatag5304/14/2022 03/13/2022zDENTAL DQ [employer]-termed 07/14/22[address] [place] [id number], ELENAelf - patient is the nxyrshh10zDental MEDICAID CFC after [employer]-termed 07/14/[address] [place] [id number], ELENAelf - patient is the [id number] MEDICAID [facility] after [employer]-termed 07/14/22[address] [place] [id number] LOPEZelf - patient is the [id number] [facility]med 07/14/22[address] [place] [phone] [id number], STEPHANIESelf - patient is the [id number] [facility]-termed 07/14/22[address] [place] [address] [phone], STEPHANIESelf - patient is the aogrffp4003/14/2022 07/14/2022zBH MEDICAID CFC [place] BCBS-termed 07/14/22[address] [place] [id number], STEPHANIESelf - patient is the [id number] Medicaid CFC after [place] BCBS-termed 07/14/22 [address] [place] [id number], STEPHANIE Self - [facility] the [facility] [address] [place] [phone], STEPHANIESelf - patient is the yedesnl9407/15/2022 Wrap [facility] [address] [place] [phone], STEPHANIESelf - patient is the oicvfgm85/01/2023Dental Anthem [place] MedicaidPO [address] [address] [place] [id number], STEPHANIESelf - patient is the insured [facility] [address] [place] [phone] [id number], STEPHANIESelf - patient is the rjbfvhf1102/12/2023 Medical (General) History Medical History History ICD Code acid reflux alcoholic hepatitisSurgical History Surgery Date(Month/Year) Right knee- meniscus 2020
--- OUTSIDE RECORDS SUMMARY | 2025-04-26 19:02 | XMS_ITS | Encounter Summary ---
Author Organization [facility] Address [address] [place] [address] Care Team Providers Care Mechanical Technical Service Specialist Name Role Phone Unallocated, Noms Provider Primary Care Provi fatuma Encounter Details DateTypeDepartmentCare Team (Latest Contact Info)Kytwtqqfbso87/23/2024Clinisync Result Encounter [facility] External Department Unsolicited Keith Mccracken, DO [address] [place] [address] Social History Tobacco UseTypesPacks/DayYears UsedDateSmoking Tobacco: Never AssessedPHQ-2 AnswerDate RecordedPatient Health Questionnaire-2 Zuoyd289 CommentsYesSex and Gender InformationValueDate RecordedSex Assigned at BirthNot on fileLegal XxgWlvtau99/15/2023 6:49 PM EDTGender IdentityNot on fileSexual OrientationNot on filedocumented as of this encounter Functional Status * Over the past 2 weeks, how often have you been bothered by any of the following problems?QuestionAnswerDate of AssessmentAuthorLittle interest or pleasure in doing thingsNot at all09/07/2024 2:40 PM Marycarmen Coe LPN Feeling down, depressed, or hopelessNot at all09/07/2024 2:40 PM Marycarmen Coe LPNPatient Health Questionnaire-2 Ajmbu677 2:40 PM Marycarmen Coe LPN documented as of this encounter Plan of Treatment Not on file documented as of this encounter Procedures Procedure NamePriorityDate/TimeAssociated DiagnosisCommentsUS OB GROWTH 06/05/2024 12:46 PM EST documented in this encounter Results * US OB GROWTH (06/05/2024 12:46 PM EST)Anatomical RegionLateralityModalityOther Specimen (Source)Anatomical Location / LateralityCollection Method / Volume Collection TimeReceived Time06/05/2024 12:46 PM EST Narrative 06/05/2024 12:48 PM EST [facility] ?[address] ? [place], [facility] ? Ultrasound Report ? Signed ? Patient: MARIBEL WEST ?MR#: [id number] ?? : 2000 ?Acct:[id number] ?? Age/Sex: 23 / F ?ADM Date: 06/05/24 ?? Loc: [facility] ? Attending Dr: Keith Mccracken D.O. ? Ordering Physician: Keith Mccracken D.O. ?? Date of Service: 06/05/24 ?? Procedure(s): US OB growth ?? Accession Number(s): [id number] ? cc: Keith Mccracken D.O.; Physician,Non-Staff MSusana ? [facility] ? [address] [facility] ? [place] [address] ? Patient Name: ?? MARIBEL WEST ? MRN: [facility]:[id number] ? date: 2000 ?Sex: F ?? Assigned Patient Location: [facility] ?? Current Patient Location: LAB ?? Accession/Order Number: [id number] ?? Exam Date: 06/05/2024 ??10:43 ?Report Date: 06/05/2024 ??12:46 ? At the request of: ?? KEITH ??KAYKAY ? Procedure: ??US OB growth ? EXAMINATION: US OB growth ? HISTORY: LARGE FOR GESTATIONAL AGE ? COMPARISON: 03/16/2024 ? FINDINGS: ? Heart Rate: 150 bpm ?? Amniotic Fluid Volume: 19.3 cm ?? Number: 1 ?? Position: Cephalic presentation, longitudinal lie ? BIOMETRY: ?? BPD: 8.45 cm; 34 weeks 0 days; 94.30 % ?? HC: 29.74 cm; 32 weeks 6 days; 45 % ?? AC: 29.43 cm; 33 weeks 3 days; 89.90 % ?? FL: 6.32 cm; 32 weeks 5 days; 64 % ?? EFW: 2234.93 g; 85 %, 4 lbs. 12 oz. ?? FL/AC: 21.47 ?? FL/BPD: 74.79 ?? HC/AC: 1.01 ? GESTATIONAL AGE: ?? Age by EDC: 31 weeks 5 days ?? WYATT by EDC: 2024 ?? Age by US: 33 weeks 2 days ?? WYATT by US: 2024-07-22 ? US/US OB growth ?? IMPRESSION: ? Normal interval growth ? Electronically authenticated by: AMY ??AVA ?? Date: 06/05/2024 ??12:46 ? Dictated By: ?Amy Escalante M.D. ? Signed By: ?12/23/24 1248 ? DD/ 1246 ? TD/TT: ? Filter Press Pumper: Procedure Note Radiology, Radiologist, MD - 06/05/2024 [place] [address] Ultrasound Report Signed Patient: MARIBEL WEST MMR#: [id number] : 2000Acct:[id number] Age/Sex: 23 / FADM Date: 06/05/24 Loc: [facility] Attending Dr: Keith Mccracken D.O. Ordering Physician: Keith Mccracken D.O. Date of Service: 06/05/24 Procedure(s): US OB growth Accession Number(s): [id number] cc: Keith Mccracken D.O.; Physician,Non-Staff M.Kelsi The [place] [id number] Patient Name: MARIBEL WEST MRN: [facility]:[id number] date: 2000 Sex: F Assigned Patient [facility]: [facility] Current Patient Location: LAB Accession/Order Number: [id number] Exam Date: 06/05/2024 10:43 Report Date: 06/05/2024 12:46 At the request of: KEITH MCCRACKEN Procedure: US OB growth EXAMINATION: US [...] Normal interval growth Electronically authenticated by: AMY ESCALANTE Date: 06/05/2024 12:46 Dictated By: Amy Escalante M.D. Signed By:06/05/24 1248 DD/ 1246 TD/TT: Filter Press Pumper: Authorizing ProviderResult TypeResult StatusCorey Kaykay DOCLINISYNC IMAGINGFinal Result documented in this encounter Visit Diagnoses Not on filedocumented in this encounter Care Teams Team MemberRelationshipSpecialtyStart DateEnd Date Unallocated, Noms ProviderMD [address] [place] [address] PCP - GeneralFamily Medicine08/12/23documented as of this encounter
--- OUTSIDE RECORDS SUMMARY | 2025-04-26 19:02 | XMS_ITS | Encounter Summary ---
Author Organization [facility] Address [address] [place] [address] Care Team Providers Care Primary Care Md Name Role Phone Unallocated, [facility] Provider Primary Care Provi fatuma Encounter Details DateTypeDepartmentCare Team (Latest Contact Info)Lxvkpphfccq46/03/2024Clinisync Result Encounter [facility] External Department Unsolicited Marycarmen Rowan, [facility] [address] [place] [address] [place] [address] Social History Tobacco UseTypesPacks/DayYears UsedDateSmoking Tobacco: Never AssessedPHQ-2 AnswerDate RecordedPatient Health Questionnaire-2 [id number] CommentsYesSex and Gender InformationValueDate RecordedSex Assigned at BirthNot on fileLegal JkzXccebn82/15/2023 6:49 PM EDTGender IdentityNot on fileSexual OrientationNot on filedocumented as of this encounter Functional Status * Over the past 2 weeks, how often have you been bothered by any of the following problems?QuestionAnswerDate of AssessmentAuthorLittle interest or pleasure in doing thingsNot at all09/07/2024 2:40 PM Marycarmen Coe LPN Feeling down, depressed, or hopelessNot at all09/07/2024 2:40 PM Marycarmen Coe LPNPatient Health Questionnaire-2 [id number] 2:40 PM Marycarmen Coe LPN documented as of this encounter Plan of Treatment Not on file documented as of this encounter Procedures Procedure NamePriorityDate/TimeAssociated DiagnosisCommentsUS OB CERVICAL LENGTH 03/16/2024 12:13 PM EDT documented in this encounter Results * US OB CERVICAL LENGTH (03/16/2024 12:13 PM EDT)Anatomical RegionLaterality ModalityOtherSpecimen (Source)Anatomical Location / LateralityCollection Method / VolumeCollection TimeReceived Time03/16/2024 12:13 PM EDT Narrative 03/16/2024 12:15 PM EDT [facility] ?[address] ? [place], [place] [address] ? Ultrasound Report ? Signed ? Patient: MARIBEL WEST ?MR#: [id number] ?? : 2000 ?Acct:[id number] ?? Age/Sex: 23 / F ?ADM Date: 03/16/24 ?? [facility] ? Attending Dr: Marycarmen Rowan ? Ordering Physician: Marycarmen Rowan ?? Date of Service: 03/16/24 ?? Procedure(s): US OB cervical length ?? Accession Number(s): [id number] ? cc: Marycarmen Rowan; Physician,Non-Staff M.D. ? [facility] ? [address] [place] [address] ? [place] [address] ? Patient Name: ?? MARIBEL WEST ? MRN: [facility]:[id number] ? date: 2000 ?Sex: F ?? [facility] ?? Current [facility] ?? Accession/Order Number: [id number] ?? Exam Date: 03/16/2024 ??10:43 ?Report Date: 03/16/2024 ??12:13 ? At the request of: ?? MARYCARMEN ??HARPAL ? Procedure: ??US OB cervical length ? EXAMINATION: US OB anatomy, US OB [...] by current US: 2024-07-31 ? US/US OB cervical length ?? IMPRESSION: ? Nonvisualization of the ventricular outflow tracts ? Otherwise normal anatomy scan ? Closed cervix measuring 4.5 cm in length ? *Reference: [facility] Practice Guideline for the performance of Obstetric ?? Ultrasound ?? Examinations, March 14, 2007. ? Electronically authenticated by: AMY ??AVA ?? Date: 03/16/2024 ??12:13 ? Dictated By: ?Amy Escalante M.D. ? Signed By: ?03/16/24 1215 ? DD/ 1213 ? TD/TT: ? Hvac Mechanical Engineer: Procedure Note Radiology, Radiologist, - 03/16/[address] [address] Ultrasound Report Signed Patient: MARIBEL WEST MMR#: [id number] : 2000Acct:[id number] Age/Sex: 23 FADM Date: 03/16/24 Loc: [facility] Attending Dr: Marycarmen Rowan Ordering Physician: Marycarmen Rowan Date of Service: 03/16/24 Procedure(s): US OB cervical length Accession Number(s): [id number] cc: Marycarmen Rowan; Physician,Non-Staff M.DSri The [address] [address] Patient Name: MARIBEL WEST MRN: [id number] date: 2000 Sex: F Assigned Patient Location: [facility] Current Patient Location: [facility] Accession/Order Number: [id number] Exam Date: 03/16/2024 10:43 Report Date: 03/16/2024 12:13 At the request of: MARYCARMEN ROWAN Procedure: US OB cervical length EXAMINATION: US [...] Dictated By: Amy Escalante M.D. Signed By:03/16/24 1215 DD/ 12 TD/TT: Hvac Mechanical Engineer: Authorizing ProviderResult TypeResult StatusAmy Harpal [facility] IMAGINGFinal Result documented in this encounter Visit Diagnoses Not on filedocumented in this encounter Care Teams Team MemberRelationshipSpecialtyStart DateEnd Date Unallocated, Noms Provider, [address] [place] [address] PCP - GeneralFamily Medicine08/12/23documented as of this encounter
--- OUTSIDE RECORDS SUMMARY | 2025-04-26 19:02 | XMS_ITS | Encounter Summary ---
Author Organization [facility] Address [address] [facility] [place] [address] Care Team Providers Care Java Programmer Analyst Name Role Phone Unallocated, Noms Provider Primary Care Provi fatuma Encounter Details DateTypeDepartmentCare Team (Latest Contact Info)Erfftaonkyp67/13/2025amboo flowsheet SHARI Cruz [facility] [address] [place] [id number] Marycarmen Thibodeaux PA [address] [place], [place] [id number] Social History Tobacco UseTypesPacks/DayYears UsedDateSmoking Tobacco: Never AssessedPHQ-2 AnswerDate RecordedPatient Health Questionnaire-2 [id number] CommentsUnknownSex and Gender InformationValueDate RecordedSex Assigned at Not on fileLegal VnfRwthea95/15/2023 6:49 PM EDTGender IdentityNot on fileSexual OrientationNot on filedocumented as of this encounter Plan of Treatment Not on file documented as of this encounter Visit Diagnoses Not on filedocumented in this encounter Care Teams Team MemberRelationshipSpecialtyStart DateEnd Date Unallocated, Noms Provider, [place] [address] PCP - GeneralFamily Medicine08/12/23documented as of this encounter
== END 2025-04-26 18:58 | disposition home or self-care (01) ==
LOC: LAB 18:57
PROVIDERS: Visit Provider Physician Assistant
DX: Z01.419 Encounter for gynecological examination (general) (routine) without abnormal findings (principal)
CPT/HCPCS: 88175